=== PATIENT | female | born 1965 ===

== ENCOUNTER 2020-08-10 09:51 | Outpatient (REF) | payer MEDICAID, SELFPAY ==
--- NOTE | 2020-08-10 | PFT_ITS ---
Forced vital capacity moderately reduced. FEV1 slightly reduced. [id number] normal and MVV slightly reduced. Post bronchodilator therapy, there is a small improvement in FEV1 and significant improvement in [id number]. Total lung capacity and residual volume normal. Diffusion capacity normal. CONCLUSION: A very mild degree of obstructive airway disorder, which reverses to normal after bronchodilator therapy. This finding is consistent with mild degree of bronchial asthma. Clinical correlation recommended. MD ANI Herrmann/LUPE / [id number]
== END 2020-08-10 09:52 | disposition home or self-care (01) ==
LOC: HO.RESP 09:51
PROVIDERS: PCP Nurse Practitioner Family; Visit Provider Nurse Practitioner Family
DX: J45.40 Moderate persistent asthma, uncomplicated (principal); R06.02 Shortness of breath
CPT/HCPCS: 94060; 94727; 94729

== ENCOUNTER 2020-09-26 08:06 | Outpatient (REF) | payer MEDICAID, SELFPAY ==
--- NOTE | 2020-09-26 08:11 | MM_ITS ---
EXAMINATION: MM SCREENING DIGITAL BREAST TOMOSYNTHESIS, BILATERAL CLINICAL INFORMATION: Screening. Asymptomatic. Benign left stereotactic biopsy 08/29/2016. The lifetime risk of breast cancer based on the Tyrer-Cuzick Model is 11%. COMPARISON: Mammography: 09/21/2019, 10/06/2017, 12/19/2016, 08/29/2016, 08/16/2016, 08/09/2016 TECHNIQUE: Digital breast tomosynthesis is performed in both the craniocaudal and mediolateral oblique views along with computer-aided detection (CAD). Synthesized 2D images are generated from the tomosynthesis. FINDINGS: There are scattered areas of fibroglandular density (ACR BI-RADS breast composition Category b). There are no significant masses, abnormal calcifications, or other abnormalities. There is a biopsy clip marker posterior upper outer left breast. No recurrent calcifications. MM/MM tomosynthesis screening BI IMPRESSION: No mammographic evidence of malignancy. ASSESSMENT: BI-RADS 1: Negative RECOMMENDATION: Routine annual mammography screening. This patient's information was entered into a reminder system with a target due date for their next mammogram.
== END 2020-09-26 08:07 | disposition home or self-care (01) ==
LOC: HO.MAMMO 08:06
PROVIDERS: Visit Provider Nurse Practitioner Family
DX: Z12.31 Encounter for screening mammogram for malignant neoplasm of breast (principal)
CPT/HCPCS: 77063; 77067

== ENCOUNTER 2020-11-30 10:32 | Inpatient (IN) | payer MEDICAID, SELFPAY ==
--- NOTE | ~2020-11-30 | XR_ITS ---
EXAMINATION: XR CHEST CLINICAL INFORMATION: Chest pain COMPARISON: 08/30/2019 TECHNIQUE: Frontal view of the chest was obtained. FINDINGS: The lungs are well expanded. Patchy opacities are seen at the left lung base. No pleural effusion or pneumothorax. The cardiomediastinal silhouette is within normal limits. Radiopaque anchor in the right humeral head. Right upper quadrant surgical clips. XR/XR chest 1V IMPRESSION: Patchy left basilar airspace opacities could represent atelectasis or pneumonia. Aspiration possible.
--- NOTE | ~2020-11-30 | CT_ITS ---
EXAMINATION: CT ANGIOGRAM OF THE CHEST WITH AND WITHOUT CONTRAST (CT PULMONARY ANGIOGRAM FOR PE) CLINICAL INFORMATION: Reason for Exam Cp + covid/ elevated ddimer, abnormal cxr COMPARISON: Chest pain. Covid. Elevated d-dimer. Abnormal chest radiograph. TECHNIQUE: Prior to contrast administration, noncontrast localization images were obtained. Subsequently, multidetector volumetric imaging was performed from the thoracic inlet to below the diaphragms following the administration of 57 mL Omnipaque 350 intravenous contrast. No contrast reaction reported Sagittal, coronal, and MIP oblique sagittal reformatted images were obtained on the CT workstation, uploaded to PACS, and reviewed. This CT examination was performed using dose optimization techniques as appropriate, variously including the following: *Automated exposure control *Adjustment of mA and/or kV according to patient size (this includes techniques or standardized protocols for targeted exams where dose is matched to indication/reason for exam; i.e. extremities or head) *Use of iterative reconstruction technique Total exam dose-length product 214 mGy-cm FINDINGS: QUALITY OF STUDY/CONTRAST BOLUS: Satisfactory. PULMONARY ARTERIES: No central or segmental pulmonary emboli. Motion degrades evaluation. THORACIC AORTA: No aneurysm or dissection. LUNG: The central airways are patent. There are patchy bilateral groundglass opacities, greatest at the left base. No separate dense consolidation. PLEURA: No pleural effusion or pneumothorax. MEDIASTINUM: Normal heart size. No pericardial effusion. No hilar or mediastinal lymphadenopathy. No evidence of septal bowing or right heart strain. CHEST WALL/AXILLA: No axillary or internal mammary lymphadenopathy. OSSEOUS STRUCTURES: No acute or suspicious osseous abnormality. Mild degenerative change of the spine. UPPER ABDOMEN: Cholecystectomy. No acute abnormality in the visualized upper abdomen. No reflux of contrast into the hepatic veins to suggest elevated right heart pressures. CT/CT angio chest PE protocol IMPRESSION: 1. No pulmonary embolism. 2. Patchy groundglass opacities are seen in the lungs, consistent with the clinical history of Covid. VTE: negative
[2020-11-30 11:57] VITALS: BP 121/76; PULSE 92; RESP 18; TEMP 37.2; O2SAT 94; BMI 25.7
--- NOTE | 2020-11-30 12:21 | ECG_ITS ---
Test Reason : NAUSEA/VOMITING Blood Pressure : / mmHG Vent. Rate : 093 BPM Atrial Rate : 093 BPM P-R Int : 136 ms QRS Dur : 088 ms QT Int : 368 ms P-R-T Axes : 033 007 019 degrees QTc Int : 457 ms Normal sinus rhythm Possible Left atrial enlargement Inferior infarct (cited on or before 30-NOV-2020) Abnormal ECG When compared with ECG of 24-JUN-2019 09:47, Vent. rate has increased BY 31 BPM Nonspecific T wave abnormality, improved in Lateral leads Referred By: Dalton Heard Electronically Signed By:DEANNA SALAZAR MD
--- NOTE | 2020-11-30 12:28 | ED.GENADULT ---
HPI - General Adult General Chief complaint: Nausea/Vomiting/Diarrhea Stated complaint: covid + vomiting, weakness Time Seen by Provider: 11/30/20 12:06 Source: patient and family Mode of arrival: wheelchair Limitations: no limitations History of Present Illness HPI narrative: 55-year-old female with history of asthma, migraine headaches gastroesophageal reflux disease, anxiety/depression and chronic back pain with surgical history of hysterectomy presenting ambulatory with complaint of states on November 24 started to feel unwell and she had her grandson visiting who was also having some upper respiratory symptoms just prior to her having onset of her symptoms he tested positive for COVID and she went to [facility] 2 days ago on November 28 for her symptoms and was tested for COVID-19 and she was positive. States then she has had some nausea vomiting and mild diarrhea also having some cough that is making her underlying asthma worse with some slight wheezing. States she has some substernal chest tightness at times. States her most bothersome symptom is that she has the nausea vomiting and unable to keep any fluids down. She denies any lower extremity swelling, the chest tightness is mostly associated with cough. Positive chills at night with subjective fevers. Onset (ago): day(s) Location: abdomen Severity: moderate Severity scale (1-10): 5 Pain Consistency: other (Worsening) Relieving factors: none Associated symptoms: chest pain, cough, fever/chills and nausea/vomiting Treatments prior to arrival: none Related Data Home Medications Medication Instructions Recorded Confirmed cetirizine 10 mg PO DAILY PRN 11/30/20 11/30/20 diclofenac sodium 2 g TOPICAL QID 11/30/20 11/30/20 docusate sodium [DOK] 100 mg PO BID 11/30/20 11/30/20 duloxetine 60 mg PO DAILY 11/30/20 11/30/20 ergocalciferol (vitamin D2) 1,250 mcg PO REAL 11/30/20 11/30/20 fluticasone furoate-vilanterol 1 puff INHALATION DAILY 11/30/20 11/30/20 [Breo Ellipta] fluticasone propionate 2 spray INTRANASAL DAILY 11/30/20 11/30/20 gabapentin 300 mg PO BEDTIME 11/30/20 11/30/20 ipratropium bromide [Atrovent HFA] 2 puff INHALATION QID PRN 11/30/20 11/30/20 lidocaine [Lidoderm] 1 patch TOPICAL DAILY 11/30/20 11/30/20 melatonin 5 - 10 mg PO BEDTIME PRN 11/30/20 11/30/20 montelukast 10 mg PO BEDTIME 11/30/20 11/30/20 omeprazole 20 mg PO BID 11/30/20 11/30/20 polyethylene glycol 3350 17 g PO DAILY 11/30/20 11/30/20 simvastatin 40 mg PO BEDTIME 11/30/20 11/30/20 Previous Rx's Medication Instructions Recorded cyclobenzaprine 5 mg tablet 5 mg PO BEDTIME PRN #30 tab 08/01/20 Allergies Allergy/AdvReac Type Severity Reaction Status Date / Time pollen extracts [POLLEN] Allergy Unknown RUNNY Unverified 05/18/20 17:15 NOSE, ITCHY EYES seasonl allergies Allergy Unknown asthma Uncoded 10/22/18 00:00 attacks Review of Systems Review of Systems: Constitutional: No Weight loss, + Chills, No Night Sweats, No Fatigue, No Malaise ENT/Mouth: No Hearing loss, No Ear Pain, No Nasal Congestion, No Sinus Pain, No Hoarseness, No sore throat, No Rhinorrhea, No Swallowing Difficulty Eyes: No Eye Pain, No Swelling, No Redness, No Foreign Body, No Discharge, No Vision Changes Cardiovascular: + Chest Pain, No SOB, No Dyspnea on Exertion, No Orthopnea, No Edema, No Palpitations Respiratory: No Cough, No Sputum, No Wheezing, No Smoke Exposure, No Dyspnea Gastrointestinal: As noted per HPI, No Hematochezia, No Melena Genitourinary: no irregular bleeding, No Dysuria, No Urinary Frequency, No Hematuria, No Urinary Incontinence, No Urgency, No Flank Pain, No Urinary Flow Changes, No Hesitancy Musculoskeletal: No joint pain, + Myalgias, No Joint Swelling Skin: No Skin Lesions, No rash Neuro: No Weakness, No Numbness, No Paresthesias, No Loss of Consciousness, No Dizziness, No Headache Psych: No Social Issues Heme/Lymph: No Bruising, No Bleeding,No Lymphadenopathy Endocrine: No Polyuria, No Polydipsia, No Temperature Intolerance Yes all other systems are reviewed and are negative PMFSH Past Medical History Medical History (Updated 11/30/20 @ 20:04 by Dalton Heard NP) Anxiety Arthritis Asthma Depression Migraine headache Surgical History Hx of cholecystectomy Hx of elbow surgery Hx of hysterectomy Social History Social History Smoking Status: Never smoker Use of substances other than those prescribed or required for medical reasons: No Advance Directives: No Advance Directives Information Provided: No Physical Exam Vital Signs: Vital Signs: Last Vital Signs Temp 99.0 F 11/30/20 11:57 Pulse 103 H 11/30/20 15:51 Resp 18 11/30/20 15:51 BP 122/72 11/30/20 15:51 Pulse Ox 88 L 11/30/20 16:51 Body Mass Index 25.7 Reviewed Const: General: cooperative and tired appearing; No acute distress Nutritional Appearance: average body habitus Orientation/consciousness: patient oriented x3 HENMT: Head: Yes normal to inspection Ears: hearing grossly normal bilaterally Eyes: General: appearance normal, both eyes and all related structures Visual Bruno: normal visual bruno by confrontation Neck: Neck: Yes normal visual inspection, No positive Brudzinski's sign, No positive Kernig's sign and No tender Thyroid: Thyroid normal Chest: Chest palpation & inspection: normal inspection of the chest Resp: Effort & Inspection: normal respiratory effort Auscultation: wheezes expiratory wheezes, upper bilaterally and posterior Cardio: Jugular venous distension: no JVD Rhythm: regular rhythm Heart sounds: S1 normal heart sound present and S2 normal heart sound present GI: Inspection: Yes normal to inspection Palpation (GI): Soft to palpation, nontender, no guarding and not rigid Percussion: Yes normal to percussion Auscultation: normal bowel sounds : General: Yes no CVA tenderness Back/Spine/Pelvis: Back: no CVA tenderness Skin: General skin exam: no rashes or lesions noted Neuro: General: patient oriented x3 Extrem: General: Yes normal to inspection Course Reevaluation(s) Reevaluation #1: 1235 In review 55-year-old female with history of asthma, migraine headaches gastroesophageal reflux disease, anxiety/depression and chronic back pain with surgical history of hysterectomy as well as other history as noted above presenting with GI symptoms and cough with some associated chest discomfort in the setting of recent positive COVID diagnosis. Will need labs including COVID stratification labs, EKG, chest x-ray and will treat with albuterol inhaler. Will hold of fluid at this time. With ambulation her heart rate went 94-114 and oxygen at 94% but no shortness of breath. Will give her 500 cc of fluid very gradually and symptomatic management for the GI symptoms. Her abdominal exam is benign. Has not had any vomiting or diarrhea today. Reevaluation #2: Labs shows slightly elevated COVID marker and a slightly elevated liver function test does have some mild nausea and vomiting prior to coming here and some diarrhea otherwise none of the GI symptoms here. Slightly elevated D-dimer CTA negative findings consistent with COVID disease. 88% on room air 93-95% on 2 L. she does live alone given the hypoxia case discussed with hospitalist for admission. Consultations Consultation #1: Hospitalist Dr. Gomez Medical Decision Making Lab Data Result diagrams: 11/30/20 13:14 11/30/20 12:15 Labs: Lab Results 11/30/20 11/30/20 11/30/20 Range/Units 12:15 12:15 12:18 WBC 5.0 (4.8-10.8) X10*3/uL RBC 4.85 (4.20-5.50) X10*6/uL Hgb 13.5 (12.0-16.0) g/dl Hct 41.0 (37-47) % MCV 84.5 (80-98) fL MCH 27.8 (27.0-33.0) pg MCHC 32.9 (31.0-35.0) g/dl RDW 12.7 (11.0-16.0) % Plt Count 129 L (160-400) X10*3/uL MPV 9.5 (9.4-12.3) fL Immature Gran % (Auto) 0.0 (0.0-0.4) % Neut % (Auto) 72.4 (45-73) % Lymph % (Auto) 23.4 (20-40) % [place] % (Auto) 4.0 (2-11) % Eos % (Auto) 0.0 (0-4) % Baso % (Auto) 0.2 (0-2) % Lymph # (Auto) 1.2 (1.2-4.9) X10*3/uL [place] # (Auto) 0.2 (0.1-1.2) X10*3/uL Eos # (Auto) 0.0 (0.0-0.4) X10*3/uL Baso # (Auto) 0.0 (0.0-0.2) X10*3/uL Abs Immat Gran (auto) 0.00 (0.00-0.03) X10*3/uL Absolute Neuts (auto) 3.6 (2.0-8.3) X10*3/uL Absolute Nucleated RBC 0.000 (0.0-0.012) X10*3/uL Nucleated RBC % (auto) 0.0 (0.0-0.2) /100WBC PT 13.6 H (10.8-13.0) SEC INR 1.1 (0.9-1.1) APTT 34.0 (24.1-38.0) SEC D-Dimer 247 NG/ML Hold Blue Top SEE NOTE Sodium 136 (135-145) mmol/L Potassium 3.6 (3.3-5.1) mmol/L Chloride 100 (96-108) mmol/L Carbon Dioxide 25 (22-29) mmol/L Anion Gap 15 (12-20) BUN 11 (9-16) mg/dL Creatinine 0.61 (0.5-1.4) mg/dL Estim Creat Clear Calc 97.2 Estimated GFR > 60 Random Glucose 91 (60-115) mg/dL Lactic Acid (0.5-2.0) mmol/L Calcium 8.6 (8.4-10.2) mg/dL Ferritin (10-250) ng/mL Total Bilirubin 0.4 (0.0-1.0) mg/dL Direct Bilirubin 0.2 (0.0-0.5) mg/dL AST 58 H (5-31) U/L ALT 57 H (0-31) U/L Alkaline Phosphatase 92 (39-117) U/L Lactate Dehydrogenase 272 H (122-220) U/L Troponin I High Sens (<3.5-17.0) ng/L C-Reactive Protein 1.13 H (< or = 0.50) mg/dL B-Natriuretic Peptide (<100) pg/mL Total Protein 7.2 (6.5-8.0) g/dL Albumin 4.2 (3.5-5.0) g/dL Lipase 24 (8-78) U/L Procalcitonin ng/mL Urine Color Urine Appearance Urine pH (5.0-8.0) Ur Specific [place] (1.005-1.025) Urine Protein (NEG-TRACE) MG/DL Urine Glucose (UA) (NEG) MG/DL Urine Ketones (NEG) MG/DL Urine Blood (NEG) Urine Nitrite (NEG) Ur Leukocyte Esterase (NEG) Urine RBC (0) /HPF Urine WBC (0-4) /HPF Ur Squamous Epith Cells /LPF Urine Bacteria /LPF Urine Mucus /LPF 11/30/20 11/30/20 11/30/20 Range/Units 13:14 13:14 13:14 WBC 4.7 L (4.8-10.8) X10*3/uL RBC 4.78 (4.20-5.50) X10*6/uL Hgb 13.5 (12.0-16.0) g/dl Hct 40.8 (37-47) % MCV 85.4 (80-98) fL MCH 28.2 (27.0-33.0) pg MCHC 33.1 (31.0-35.0) g/dl RDW 12.8 (11.0-16.0) % Plt Count 130 L (160-400) X10*3/uL MPV 9.6 (9.4-12.3) fL Immature Gran % (Auto) 0.2 (0.0-0.4) % Neut % (Auto) 69.9 (45-73) % Lymph % (Auto) 25.9 (20-40) % Marathon % (Auto) 3.8 (2-11) % Eos % (Auto) 0.0 (0-4) % Baso % (Auto) 0.2 (0-2) % Lymph # (Auto) 1.2 (1.2-4.9) X10*3/uL [place] # (Auto) 0.2 (0.1-1.2) X10*3/uL Eos # (Auto) 0.0 (0.0-0.4) X10*3/uL Baso # (Auto) 0.0 (0.0-0.2) X10*3/uL Abs Immat Gran (auto) 0.01 (0.00-0.03) X10*3/uL Absolute Neuts (auto) 3.3 (2.0-8.3) X10*3/uL Absolute Nucleated RBC 0.000 (0.0-0.012) X10*3/uL Nucleated RBC % (auto) 0.0 (0.0-0.2) /100WBC PT (10.8-13.0) SEC INR (0.9-1.1) APTT (24.1-38.0) SEC D-Dimer NG/ML Hold Blue Top Sodium (135-145) mmol/L Potassium (3.3-5.1) mmol/L Chloride (96-108) mmol/L Carbon Dioxide (22-29) mmol/L Anion Gap (12-20) BUN (9-16) mg/dL Creatinine (0.5-1.4) mg/dL Estim Creat Clear Calc Estimated GFR Random Glucose (60-115) mg/dL Lactic Acid 0.8 (0.5-2.0) mmol/L Calcium (8.4-10.2) mg/dL Ferritin 559 H (10-250) ng/mL Total Bilirubin (0.0-1.0) mg/dL Direct Bilirubin (0.0-0.5) mg/dL AST (5-31) U/L ALT (0-31) U/L Alkaline Phosphatase (39-117) U/L Lactate Dehydrogenase (122-220) U/L Troponin I High Sens (<3.5-17.0) ng/L C-Reactive Protein (< or = 0.50) mg/dL B-Natriuretic Peptide (<100) pg/mL Total Protein (6.5-8.0) g/dL Albumin (3.5-5.0) g/dL Lipase (8-78) U/L Procalcitonin ng/mL Urine Color Urine Appearance Urine pH (5.0-8.0) Ur Specific [place] (1.005-1.025) Urine Protein (NEG-TRACE) MG/DL Urine Glucose (UA) (NEG) MG/DL Urine Ketones (NEG) MG/DL Urine Blood (NEG) Urine Nitrite (NEG) Ur Leukocyte Esterase (NEG) Urine RBC (0) /HPF Urine WBC (0-4) /HPF Ur Squamous Epith Cells /LPF Urine Bacteria /LPF Urine Mucus /LPF 11/30/20 11/30/20 11/30/20 Range/Units 13:14 13:14 13:14 WBC (4.8-10.8) X10*3/uL RBC (4.20-5.50) X10*6/uL Hgb (12.0-16.0) g/dl Hct (37-47) % MCV (80-98) fL MCH (27.0-33.0) pg MCHC (31.0-35.0) g/dl RDW (11.0-16.0) % Plt Count (160-400) X10*3/uL MPV (9.4-12.3) fL Immature Gran % (Auto) (0.0-0.4) % Neut % (Auto) (45-73) % Lymph % (Auto) (20-40) % Marathon % (Auto) (2-11) % Eos % (Auto) (0-4) % Baso % (Auto) (0-2) % Lymph # (Auto) (1.2-4.9) X10*3/uL [place] # (Auto) (0.1-1.2) X10*3/uL Eos # (Auto) (0.0-0.4) X10*3/uL Baso # (Auto) (0.0-0.2) X10*3/uL Abs Immat Gran (auto) (0.00-0.03) X10*3/uL Absolute Neuts (auto) (2.0-8.3) X10*3/uL Absolute Nucleated RBC (0.0-0.012) X10*3/uL Nucleated RBC % (auto) (0.0-0.2) /100WBC PT (10.8-13.0) SEC INR (0.9-1.1) APTT (24.1-38.0) SEC D-Dimer NG/ML Hold Blue Top Sodium (135-145) mmol/L Potassium (3.3-5.1) mmol/L Chloride (96-108) mmol/L Carbon Dioxide (22-29) mmol/L Anion Gap (12-20) BUN (9-16) mg/dL Creatinine (0.5-1.4) mg/dL Estim Creat Clear Calc Estimated GFR Random Glucose (60-115) mg/dL Lactic Acid (0.5-2.0) mmol/L Calcium (8.4-10.2) mg/dL Ferritin (10-250) ng/mL Total Bilirubin (0.0-1.0) mg/dL Direct Bilirubin (0.0-0.5) mg/dL AST (5-31) U/L ALT (0-31) U/L Alkaline Phosphatase (39-117) U/L Lactate Dehydrogenase (122-220) U/L Troponin I High Sens < 3.5 (<3.5-17.0) ng/L C-Reactive Protein (< or = 0.50) mg/dL B-Natriuretic Peptide (<100) pg/mL Total Protein (6.5-8.0) g/dL Albumin (3.5-5.0) g/dL Lipase (8-78) U/L Procalcitonin 0.03 ng/mL Urine Color DARK YELLOW Urine Appearance HAZY Urine pH 6.0 (5.0-8.0) Ur Specific [place] 1.025 (1.005-1.025) Urine Protein 1+ H (NEG-TRACE) MG/DL Urine Glucose (UA) NEG (NEG) MG/DL Urine Ketones >=80 (NEG) MG/DL Urine Blood NEG (NEG) Urine Nitrite NEG (NEG) Ur Leukocyte Esterase NEG (NEG) Urine RBC 0-2 (0) /HPF Urine WBC 0-2 (0-4) /HPF Ur Squamous Epith Cells 1+ /LPF Urine Bacteria TRACE /LPF Urine Mucus 2+ /LPF 11/30/20 Range/Units 13:14 WBC (4.8-10.8) X10*3/uL RBC (4.20-5.50) X10*6/uL Hgb (12.0-16.0) g/dl Hct (37-47) % MCV (80-98) fL MCH (27.0-33.0) pg MCHC (31.0-35.0) g/dl RDW (11.0-16.0) % Plt Count (160-400) X10*3/uL MPV (9.4-12.3) fL Immature Gran % (Auto) (0.0-0.4) % Neut % (Auto) (45-73) % Lymph % (Auto) (20-40) % [place] % (Auto) (2-11) % Eos % (Auto) (0-4) % Baso % (Auto) (0-2) % Lymph # (Auto) (1.2-4.9) X10*3/uL [place] # (Auto) (0.1-1.2) X10*3/uL Eos # (Auto) (0.0-0.4) X10*3/uL Baso # (Auto) (0.0-0.2) X10*3/uL Abs Immat Gran (auto) (0.00-0.03) X10*3/uL Absolute Neuts (auto) (2.0-8.3) X10*3/uL Absolute Nucleated RBC (0.0-0.012) X10*3/uL Nucleated RBC % (auto) (0.0-0.2) /100WBC PT (10.8-13.0) SEC INR (0.9-1.1) APTT (24.1-38.0) SEC D-Dimer NG/ML Hold Blue Top Sodium (135-145) mmol/L Potassium (3.3-5.1) mmol/L Chloride (96-108) mmol/L Carbon Dioxide (22-29) mmol/L Anion Gap (12-20) BUN (9-16) mg/dL Creatinine (0.5-1.4) mg/dL Estim Creat Clear Calc Estimated GFR Random Glucose (60-115) mg/dL Lactic Acid (0.5-2.0) mmol/L Calcium (8.4-10.2) mg/dL Ferritin (10-250) ng/mL Total Bilirubin (0.0-1.0) mg/dL Direct Bilirubin (0.0-0.5) mg/dL AST (5-31) U/L ALT (0-31) U/L Alkaline Phosphatase (39-117) U/L Lactate Dehydrogenase (122-220) U/L Troponin I High Sens (<3.5-17.0) ng/L C-Reactive Protein (< or = 0.50) mg/dL B-Natriuretic Peptide < 10 (<100) pg/mL Total Protein (6.5-8.0) g/dL Albumin (3.5-5.0) g/dL Lipase (8-78) U/L Procalcitonin ng/mL Urine Color Urine Appearance Urine pH (5.0-8.0) Ur Specific [place] (1.005-1.025) Urine Protein (NEG-TRACE) MG/DL Urine Glucose (UA) (NEG) MG/DL Urine Ketones (NEG) MG/DL Urine Blood (NEG) Urine Nitrite (NEG) Ur Leukocyte Esterase (NEG) Urine RBC (0) /HPF Urine WBC (0-4) /HPF Ur Squamous Epith Cells /LPF Urine Bacteria /LPF Urine Mucus /LPF Imaging Data Chest CTA: Radiologist's impression: [address] Scan ReportSigned Patient: Higinio Last#: [id number]: 1965Acct:[id number]/Sex: 55 / FADM Date: 11/30/20Loc: EDAttending Dr: Ordering Physician: Dalton Heard NP Date of Service: 11/30/20 Procedure(s): CT angio chest PE protocol Accession Number(s): [id number] cc: Dalton Heard NP~ EXAMINATION: CT ANGIOGRAM OF THE CHEST WITH AND WITHOUT CONTRAST (CT PULMONARY ANGIOGRAM FOR PE) CLINICAL INFORMATION: Reason for Exam Cp + covid/ elevated ddimer, abnormal cxr COMPARISON: Chest pain. Covid. Elevated d-dimer. Abnormal chest radiograph. TECHNIQUE: Prior to contrast administration, noncontrast localization images were obtained. Subsequently, multidetector volumetric imaging was performed from the thoracic inlet to below the diaphragms following the administration of 57 mL Omnipaque 350 intravenous contrast. No contrast reaction reported Sagittal, coronal, and MIP oblique sagittal reformatted images were obtained on the CT workstation, uploaded to PACS, and reviewed. This CT examination was performed using dose optimization techniques as appropriate, variously including the following: *Automated exposure control *Adjustment of mA and/or kV according to patient size (this includes techniques or standardized protocols for targeted exams where dose is matched to indication/reason for exam; i.e. extremities or head) *Use of iterative reconstruction technique Total exam dose-length product 214 mGy-cm FINDINGS: QUALITY OF STUDY/CONTRAST BOLUS: Satisfactory. PULMONARY ARTERIES: No central or segmental pulmonary emboli. Motion degrades evaluation. THORACIC AORTA: No aneurysm or dissection. LUNG: The central airways are patent. There are patchy bilateral groundglass opacities, greatest at the left base. No separate dense consolidation. PLEURA: No pleural effusion or pneumothorax. MEDIASTINUM: Normal heart size. No pericardial effusion. No hilar or mediastinal lymphadenopathy. No evidence of septal bowing or right heart strain. CHEST WALL/AXILLA: No axillary or internal mammary lymphadenopathy. OSSEOUS STRUCTURES: No acute or suspicious osseous abnormality. Mild degenerative change of the spine. UPPER ABDOMEN: Cholecystectomy. No acute abnormality in the visualized upper abdomen. No reflux of contrast into the hepatic veins to suggest elevated right heart pressures. CT/CT angio chest PE protocol IMPRESSION: 1. No pulmonary embolism. 2. Patchy groundglass opacities are seen in the lungs, consistent with the clinical history of Covid. VTE: negative Dictated By:Vladimir Siddiqi MDSigned By:<Electronically signed by Vladimir Siddiqi MD in [place]>11/30/20 1610 DD/ 1419TD/TT: Director Of Graduate Medical Education: MERLYN Chest x-ray: Radiologist's impression: [address] [id number] ReportSigned Patient: Higinio Last#: [id number]: 1965Acct:[id number]/Sex: 55 / FADM Date: 11/30/20Loc: HO.EDAttending Dr: Ordering Physician: Dalton Heard NP Date of Service: 11/30/20 Procedure(s): XR chest 1V Accession Number(s): [id number] cc: Dalotn Heard TAIL DOGGER~ EXAMINATION: XR CHEST CLINICAL INFORMATION: Chest pain COMPARISON: 08/30/2019 TECHNIQUE: Frontal view of the chest was obtained. FINDINGS: The lungs are well expanded. Patchy opacities are seen at the left lung base. No pleural effusion or pneumothorax. The cardiomediastinal silhouette is within normal limits. Radiopaque anchor in the right humeral head. Right upper quadrant surgical clips. XR/XR chest 1V IMPRESSION: Patchy left basilar airspace opacities could represent atelectasis or pneumonia. Aspiration possible. Dictated By:Vladimir Siddiqi MDSigned By:<Electronically signed by Vladimir Siddiqi MD in OV>11/30/20 1305 DD/ 1221TD/TT: Director Of Graduate Medical Education: MERLYN ECG Data Interpretation: Normal sinus rhythm Possible Left atrial enlargement Inferior infarct (cited on or before 30-NOV-2020) Abnormal ECG When compared with ECG of 24-JUN-2019 09:47, Vent. rate has increased BY 31 BPM Nonspecific T wave abnormality, improved in Lateral leads Discharge Plan Discharge Clinical Impression: COVID-19, Hypoxia Diarrhea Qualifiers: Diarrhea type: unspecified type Qualified Code(s): R19.7 - Diarrhea, unspecified Patient Disposition: Admitted As Inpatient
[2020-11-30 12:35] LABS: Basophils Percent Auto 0.2 % (0-2); PLT CLUMP 1; Red Cell Distribution Width 12.7 % (11.0-16.0); SCAN SMEAR FLAG 1
[2020-11-30 12:37] LABS: Hemoglobin 13.5 g/dl (12.0-16.0); Lymphocytes Absolute Auto 1.2 X10*3/uL (1.2-4.9); Lymphocytes Percent Auto 23.4 % (20-40); Mean Corpuscular HGB Conc 32.9 g/dl (31.0-35.0); Mean Corpuscular Hemoglobin 27.8 pg (27.0-33.0); Mean Corpuscular Volume 84.5 fL (80-98); Mean Platelet Volume 9.5 fL (9.4-12.3); Monocytes Absolute Auto 0.2 X10*3/uL (0.1-1.2); Neutrophils Absolute Auto 3.6 X10*3/uL (2.0-8.3); Neutrophils Percent Auto 72.4 % (45-73); Platelet Count 129 X10*3/uL (160-400); Red Blood Count 4.85 X10*6/uL (4.20-5.50)
[2020-11-30 12:55] LABS: Alanine Aminotransferase 57 U/L (0-31); Albumin Level 4.2 g/dL (3.5-5.0); Alkaline Phosphatase 92 U/L (39-117); Anion Gap 15 (12-20); Aspartate Amino Transferase 58 U/L (5-31); Bilirubin Direct 0.2 mg/dL (0.0-0.5); Bilirubin Total 0.4 mg/dL (0.0-1.0); Blood Urea Nitrogen 11 mg/dL (9-16); C Reactive Protein 1.13 mg/dL (< or = 0.50); Calcium 8.6 mg/dL (8.4-10.2); Carbon Dioxide 25 mmol/L (22-29); Chloride 100 mmol/L (96-108); Creatinine Clr Calc Pharmacy 97.2; Estimated Glomerular Filt Rate > 60; Glucose Random 91 mg/dL (60-115); Lactate Dehydrogenase 272 U/L (122-220); Lipase 24 U/L (8-78); Potassium 3.6 mmol/L (3.3-5.1); Sodium 136 mmol/L (135-145); Total Protein 7.2 g/dL (6.5-8.0)
[2020-11-30] MEDS: ondansetron HCL 4 MG/2 ML VIAL IVPUSH (13:18)
[2020-11-30] MEDS: Lidocaine HCl Viscous 2 % 15 ML SOLUTION 10 ML MUCOUS MEM (13:18)
[2020-11-30] MEDS: Magnesium Hydrox/Alum Hydrox 30 ML ORAL.SUSP PO (13:18)
[2020-11-30 13:22] VITALS: BP 125/75; PULSE 97; RESP 18; O2SAT 93
[2020-11-30] MEDS: 0.9 % Sodium Chloride 500 ML IV (13:22)
[2020-11-30 13:29] LABS: MANUAL DIFF FLAG NO
[2020-11-30 13:30] LABS: Basophils Percent Auto 0.2 % (0-2); Hematocrit 40.8 % (37-47); Hemoglobin 13.5 g/dl (12.0-16.0); Imm Gran Abs Auto 0.01 X10*3/uL (0.00-0.03); Imm Gran Pct Auto 0.2 % (0.0-0.4); Lymphocytes Absolute Auto 1.2 X10*3/uL (1.2-4.9); Lymphocytes Percent Auto 25.9 % (20-40); Mean Corpuscular HGB Conc 33.1 g/dl (31.0-35.0); Mean Corpuscular Hemoglobin 28.2 pg (27.0-33.0); Mean Corpuscular Volume 85.4 fL (80-98); Mean Platelet Volume 9.6 fL (9.4-12.3); Monocytes Absolute Auto 0.2 X10*3/uL (0.1-1.2); Monocytes Percent Auto 3.8 % (2-11); Neutrophils Absolute Auto 3.3 X10*3/uL (2.0-8.3); Neutrophils Percent Auto 69.9 % (45-73); Platelet Count 130 X10*3/uL (160-400); Red Blood Count 4.78 X10*6/uL (4.20-5.50); Red Cell Distribution Width 12.8 % (11.0-16.0); White Blood Count 4.7 X10*3/uL (4.8-10.8)
[2020-11-30 13:39] LABS: INTERNATIONAL NORM RATIO 1.1 (0.9-1.1); Prothrombin Time 13.6 SEC (10.8-13.0)
[2020-11-30 13:42] LABS: D Dimer 247 NG/ML
[2020-11-30 13:43] LABS: Glucose Urine UA NEG (NEG); Leukocyte Esterase Urine NEG (NEG); Nitrite Urine NEG (NEG); Specific Gravity - Urine 1.025 (1.005-1.025); Urine Blood NEG (NEG); Urine Ketones >=80 MG/DL (NEG); Urine Protein 1+ MG/DL (NEG-TRACE)
[2020-11-30 13:46] LABS: Appearance Urine HAZY; Color Urine DARK YELLOW
[2020-11-30 13:51] LABS: Lactic Acid 0.8 mmol/L (0.5-2.0)
[2020-11-30 13:57] LABS: Bacteria Urine TRACE /LPF; Mucus Urine 2+ /LPF; RBC Urine 0-2 /HPF (0); Squamous Epithelial Cell Urine 1+ /LPF; WBC Urine 0-2 /HPF (0-4)
[2020-11-30 13:59] LABS: B Type Natriuretic Peptide < 10 pg/mL (<100); Troponin-I High Sensitivity < 3.5 ng/L (<3.5-17.0)
[2020-11-30 14:17] LABS: Ferritin 559 ng/mL (10-250)
[2020-11-30 14:26] LABS: Procalcitonin 0.03 ng/mL
[2020-11-30 15:51] VITALS: BP 122/72; PULSE 103; RESP 18
--- NOTE | 2020-11-30 15:52 | PC.NURSE ---
pt unable to make to the bathroom, had a episode of diarrhea, pt assisted in to the bathroom and helped with getting cleaned up, vs stable at this time, pt continuos on reporting 10/10 abd pain pt of to ct
[2020-11-30 16:51] VITALS: O2SAT 88
--- NOTE | 2020-11-30 18:11 | PM.IMHP ---
History of Present Illness Date of Service: 11/30/20 Chief Complaint: sob , nausea vomiting diarrhea. 55 y/o f with hx asthma, migraine headaches ,GERD, anxiety/depression and chronic back pain : She came to the hospital- complaint since if November 24 started to feel unwell and she had her grandson visiting who was also having some upper respiratory symptoms just prior to her having onset of her symptoms he tested positive for COVID and she went to [facility] 2 days ago on November 28 for her symptoms and was tested for COVID-19 and she was positive. she has had some nausea vomiting and mild diarrhea also having some cough that is making her underlying asthma worse with some slight wheezing. She also complain of pleuritic chest discomfort and cough. Positive chills at night with subjective fevers. She says that she has diarrhea on and off but no diarrhea since she came to the hospital in the ED as per ED physician. Past medical history as per patient: Anxiety Arthritis Asthma Depression Migraine headache Surgical History : Hx of cholecystectomy Hx of elbow surgery Hx of hysterectomy due to excessive bleeding as per patient. Social history: She lives with the family, says she is totally independent. Denies any smoking or alcohol use or use or recreation drug use. Family history: As above mentioned her grandson had similar symptom and positive for COVID. Review of Systems Review of Systems: Constitutional: Not in acute distress. Respiratory: Has short of breath and cough Cardiovascular: No palpitation or chest pain Abdominal: has nausea and somewhat epigastric discomfort , no vomiting or abdominal pain Also complains of diarrhea. Neuro iniguez: No weakness or numbness No fever but had chills last night Skin iniguez: No rash or erythema. HEENT: No vision changes or any eye pain or discharge. Please also see HPI. REPLACED BY [facility] Medical History (Updated 11/30/20 @ 20:04 by Dalton Heard NP) Anxiety Arthritis Asthma Depression Migraine headache Surgical History Hx of cholecystectomy Hx of elbow surgery Hx of hysterectomy Social History Household Members: Spouse Housing: House Do you presently have visiting nurse or other home services: No Smoking Status: Never smoker Smoked in Last 30 Days: No Use of substances other than those prescribed or required for medical reasons: Yes Currently Displaying Signs/Symptoms of Drug Intoxication Withdrawal: No Have you been hit, kicked, punched, or otherwise hurt by someone within the past year? If so, by whom?: No Do you feel safe in your current relationship?: No Is there a partner from a previous relationship who is making you feel unsafe now?: No Are you made to feel afraid or neglected: No Advance Directives: No Advance Directives Information Provided: No Do you have thoughts of harming others: None Do you have a plan to hurt others: No Plan Recently lost weight without trying: Yes service: No Current occupational status: unemployed Meds Allergies Allergy/AdvReac Type Severity Reaction Status Date / Time pollen extracts [POLLEN] Allergy Unknown RUNNY Verified 12/02/20 11:29 NOSE, ITCHY EYES seasonl allergies Allergy Unknown asthma Uncoded 12/02/20 11:29 attacks Home Medications Medication Instructions Recorded Confirmed Last Taken Type Atrovent HFA 2 puff INHALATION QID PRN 11/30/20 11/30/20 Unknown History Breo Ellipta 1 puff INHALATION DAILY 11/30/20 11/30/20 Unknown History cetirizine 10 mg PO DAILY PRN 11/30/20 11/30/20 Unknown History diclofenac sodium 2 g TOPICAL QID 11/30/20 11/30/20 Unknown History docusate sodium [DOK] 100 mg PO BID 11/30/20 11/30/20 Unknown History duloxetine 60 mg PO DAILY 11/30/20 11/30/20 Unknown History ergocalciferol (vitamin D2) 1,250 mcg PO REAL 11/30/20 11/30/20 Unknown History fluticasone propionate 2 spray INTRANASAL DAILY 11/30/20 11/30/20 Unknown History gabapentin 300 mg PO BEDTIME 11/30/20 11/30/20 Unknown History lidocaine [Lidoderm] 1 patch TOPICAL DAILY 11/30/20 11/30/20 Unknown History melatonin 5 - 10 mg PO BEDTIME PRN 11/30/20 11/30/20 Unknown History montelukast 10 mg PO BEDTIME 11/30/20 11/30/20 Unknown History omeprazole 20 mg PO BID 11/30/20 11/30/20 Unknown History polyethylene glycol 3350 17 g PO DAILY 11/30/20 11/30/20 Unknown History simvastatin 40 mg PO BEDTIME 11/30/20 11/30/20 Unknown History Physical Exam Vital Signs and Narrative: Vital Signs: Last Vital Signs Temp 99.0 F 11/30/20 11:57 Pulse 103 H 11/30/20 15:51 Resp 18 11/30/20 15:51 BP 122/72 11/30/20 15:51 Pulse Ox 88 L 11/30/20 16:51 Body Mass Index 25.7 Physical exam: Constitutional: Not in acute distress, somewhat short of breath. HEENT: Eyes: Anicteric, no discharge Throat: Mucosa Moist. Cvs: rrr, [id number] , no murmur res: grossly clear to auscultation ,no rhonchii or wheezing abd: no rebound or guarding ,nt, bs present. ext pulses present , no cyanosis neuro: axo3 , nonfocal. Results Labs CBC and Chem 7: 12/02/20 05:59 12/03/20 06:05 Labs: Laboratory Results - last 24 hr 11/30/20 11/30/20 11/30/20 12:15 12:15 12:18 MCV 84.5 MCH 27.8 MCHC 32.9 RDW 12.7 Plt Count 129 L MPV 9.5 Immature Gran % (Auto) 0.0 Neut % (Auto) 72.4 Lymph % (Auto) 23.4 [place] % (Auto) 4.0 Eos % (Auto) 0.0 Baso % (Auto) 0.2 Lymph # (Auto) 1.2 [place] # (Auto) 0.2 Eos # (Auto) 0.0 Baso # (Auto) 0.0 Abs Immat Gran (auto) 0.00 Absolute Neuts (auto) 3.6 Absolute Nucleated RBC 0.000 Nucleated RBC % (auto) 0.0 PT 13.6 H INR 1.1 APTT 34.0 D-Dimer 247 Hold Blue Top SEE NOTE Anion Gap 15 Estim Creat Clear Calc 97.2 Estimated GFR > 60 Random Glucose 91 Lactic Acid Calcium 8.6 Ferritin Total Bilirubin 0.4 Direct Bilirubin 0.2 AST 58 H ALT 57 H Alkaline Phosphatase 92 Lactate Dehydrogenase 272 H Troponin I High Sens C-Reactive Protein 1.13 H B-Natriuretic Peptide Total Protein 7.2 Albumin 4.2 Lipase 24 Procalcitonin Urine Color Urine Appearance Urine pH Ur Specific [place] Urine Protein Urine Glucose (UA) Urine Ketones Urine Blood Urine Nitrite Ur Leukocyte Esterase Urine RBC Urine WBC Ur Squamous Epith Cells Urine Bacteria Urine Mucus 11/30/20 11/30/20 11/30/20 13:14 13:14 13:14 MCV 85.4 MCH 28.2 MCHC 33.1 RDW 12.8 Plt Count 130 L MPV 9.6 Immature Gran % (Auto) 0.2 Neut % (Auto) 69.9 Lymph % (Auto) 25.9 [place] % (Auto) 3.8 Eos % (Auto) 0.0 Baso % (Auto) 0.2 Lymph # (Auto) 1.2 [place] # (Auto) 0.2 Eos # (Auto) 0.0 Baso # (Auto) 0.0 Abs Immat Gran (auto) 0.01 Absolute Neuts (auto) 3.3 Absolute Nucleated RBC 0.000 Nucleated RBC % (auto) 0.0 PT INR APTT D-Dimer Hold Blue Top Anion Gap Estim Creat Clear Calc Estimated GFR Random Glucose Lactic Acid 0.8 Calcium Ferritin 559 H Total Bilirubin Direct Bilirubin AST ALT Alkaline Phosphatase Lactate Dehydrogenase Troponin I High Sens C-Reactive Protein B-Natriuretic Peptide Total Protein Albumin Lipase Procalcitonin Urine Color Urine Appearance Urine pH Ur Specific [place] Urine Protein Urine Glucose (UA) Urine Ketones Urine Blood Urine Nitrite Ur Leukocyte Esterase Urine RBC Urine WBC Ur Squamous Epith Cells Urine Bacteria Urine Mucus 11/30/20 11/30/20 11/30/20 13:14 13:14 13:14 MCV MCH MCHC RDW Plt Count MPV Immature Gran % (Auto) Neut % (Auto) Lymph % (Auto) [place] % (Auto) Eos % (Auto) Baso % (Auto) Lymph # (Auto) [place] # (Auto) Eos # (Auto) Baso # (Auto) Abs Immat Gran (auto) Absolute Neuts (auto) Absolute Nucleated RBC Nucleated RBC % (auto) PT INR APTT D-Dimer Hold Blue Top Anion Gap Estim Creat Clear Calc Estimated GFR Random Glucose Lactic Acid Calcium Ferritin Total Bilirubin Direct Bilirubin AST ALT Alkaline Phosphatase Lactate Dehydrogenase Troponin I High Sens < 3.5 C-Reactive Protein B-Natriuretic Peptide Total Protein Albumin Lipase Procalcitonin 0.03 Urine Color DARK YELLOW Urine Appearance HAZY Urine pH 6.0 Ur Specific [place] 1.025 Urine Protein 1+ H Urine Glucose (UA) NEG Urine Ketones >=80 Urine Blood NEG Urine Nitrite NEG Ur Leukocyte Esterase NEG Urine RBC 0-2 Urine WBC 0-2 Ur Squamous Epith Cells 1+ Urine Bacteria TRACE Urine Mucus 2+ 11/30/20 13:14 MCV MCH MCHC RDW Plt Count MPV Immature Gran % (Auto) Neut % (Auto) Lymph % (Auto) [place] % (Auto) Eos % (Auto) Baso % (Auto) Lymph # (Auto) [place] # (Auto) Eos # (Auto) Baso # (Auto) Abs Immat Gran (auto) Absolute Neuts (auto) Absolute Nucleated RBC Nucleated RBC % (auto) PT INR APTT D-Dimer Hold Blue Top Anion Gap Estim Creat Clear Calc Estimated GFR Random Glucose Lactic Acid Calcium Ferritin Total Bilirubin Direct Bilirubin AST ALT Alkaline Phosphatase Lactate Dehydrogenase Troponin I High Sens C-Reactive Protein B-Natriuretic Peptide < 10 Total Protein Albumin Lipase Procalcitonin Urine Color Urine Appearance Urine pH Ur Specific [place] Urine Protein Urine Glucose (UA) Urine Ketones Urine Blood Urine Nitrite Ur Leukocyte Esterase Urine RBC Urine WBC Ur Squamous Epith Cells Urine Bacteria Urine Mucus Imaging Radiologist's Impressions: Impressions Chest X-Ray 11/30/20 12:21 IMPRESSION: Patchy left basilar airspace opacities could represent atelectasis or pneumonia. Aspiration possible. Chest CTA 11/30/20 14:19 IMPRESSION: 1. No pulmonary embolism. 2. Patchy groundglass opacities are seen in the lungs, consistent with the clinical history of Covid. VTE: negative Assessment and Plan (1) Acute hypoxemic respiratory failure: Status: Acute (2) Pneumonia due to COVID-19 virus: Status: Acute (3) Diarrhea: Status: Acute 1. Acute hypoxemic respiratory failure secondary to COVID pneumonia as per ED physician patient sats were 88 in the room air. And subsequently was started on oxygen. Continue dexamethasone and oxygen therapy, id evaluation for remdesivir is if qualifies. Seems like diarrhea probably related to COVID also: We will check stool studies including C diff and WBC. Slightly elevated LFT question COVID related, monitor closely. 2. Migraine headache: Medications still not reconciled, will add Tylenol p.r.n. for now. 3. Anxiety/depression:? Unclear if she takes medication for that at home. 4. DVT prophylaxis with Lovenox
[2020-11-30] MEDS: dexAMETHasone sod phosphate 4 MG/ML VIAL 6 MG IVPUSH (18:35)
[2020-11-30 20:12] VITALS: BP 122/71; PULSE 90; RESP 18; O2SAT 97
[2020-11-30] MEDS: Albuterol Sulfate 90 MCG 8 GM INHALER 4 PUFF INHALE (20:12)
--- NOTE | 2020-11-30 20:32 | PC.NURSE ---
WAITING ON PHARMACY TO BRING REMDESIVIR TO ER, THEY HAVE NO TECH.
[2020-11-30] MEDS: Remdesivir 200 MG in 0.9 % Sodium Chloride 210 ML 125 MG IV (20:57)
[2020-11-30] MEDS: Enoxaparin Sodium 40 MG/0.4 ML SYRINGE SUBCUT (21:05)
[2020-11-30] MEDS: Gabapentin 300 MG CAPSULE PO (21:05)
[2020-11-30] MEDS: Montelukast Sodium 10 MG TABLET PO (21:05)
[2020-11-30] MEDS: Docusate Sodium 100 MG CAPSULE PO (21:05)
[2020-11-30] MEDS: Atorvastatin Calcium 20 MG TABLET PO (21:05)
--- NOTE | 2020-11-30 23:06 | PC.NURSE ---
AWAITING ROOM ASSIGNMENT ON FLOOR, PT ASKING WHEN SHE WILL GO UPSTAIRS. PT GIVEN PUDDING, CRACKERS AND DIET SODA, OUT OF ALL OTHER FOOD IN ER [place].
[2020-12-01] VITALS (9 sets, daily range): BP systolic 89–134; BP diastolic 41–74; PULSE 65–91; RESP 12–20; TEMP 35.8–36.8; O2SAT 92–97
--- NOTE | 2020-12-01 02:21 | PC.NURSE ---
PT AMBULATORY TO BATHROOM ON HER OWN WITH STEADY GAIT. PT PLACED ON GASOLINE FINISHER UPON RETURN TO ROOM.
[2020-12-01 07:22] LABS: Hematocrit 38.1 % (37-47); Mean Corpuscular HGB Conc 34.1 g/dl (31.0-35.0); Mean Corpuscular Hemoglobin 28.6 pg (27.0-33.0); Mean Corpuscular Volume 83.7 fL (80-98); Mean Platelet Volume 9.7 fL (9.4-12.3); Platelet Count 141 X10*3/uL (160-400); Red Blood Count 4.55 X10*6/uL (4.20-5.50); Red Cell Distribution Width 12.7 % (11.0-16.0); White Blood Count 2.6 X10*3/uL (4.8-10.8)
[2020-12-01 07:59] LABS: SARS COV2 IgG Negative (Negative)
[2020-12-01 07:59] LABS: Alanine Aminotransferase 55 U/L (0-31); Albumin Level 3.9 g/dL (3.5-5.0); Alkaline Phosphatase 83 U/L (39-117); Anion Gap 14 (12-20); Aspartate Amino Transferase 50 U/L (5-31); Bilirubin Direct < 0.2 mg/dL (0.0-0.5); Bilirubin Total < 0.2 mg/dL (0.0-1.0); Blood Urea Nitrogen 11 mg/dL (9-16); Calcium 8.4 mg/dL (8.4-10.2); Carbon Dioxide 25 mmol/L (22-29); Chloride 102 mmol/L (96-108); Creatinine Clr Calc Pharmacy 107.8; Estimated Glomerular Filt Rate > 60; Glucose Random 113 mg/dL (60-115); Sodium 137 mmol/L (135-145); Total Protein 6.7 g/dL (6.5-8.0)
[2020-12-01] MEDS: dexAMETHasone sod phosphate 4 MG/ML VIAL 6 MG IVPUSH (08:43)
[2020-12-01] MEDS: DULoxetine HCl 60 MG CAPSULE.DR PO (08:44)
[2020-12-01] MEDS: Omeprazole 20 MG CAPSULE.DR PO ×2 (08:44→16:35)
[2020-12-01] MEDS: 0.9 % Sodium Chloride Flush 3 ML SYRINGE IVFLUSH ×4 (08:47→20:39)
[2020-12-01] MEDS: Albuterol Sulfate 90 MCG 8 GM INHALER 2 PUFF INHALE ×4 (08:49→21:53)
--- NOTE | 2020-12-01 10:20 | P.PNIM_ITS ---
Subjective Subjective Date of Service: 12/01/20 Interval History: Patient complaining of chest pain with coughing, no overnight fever chills, no other acute issues overnight. ROS General no headache, no dizziness ,no fever chills. CVS no palpitation. Respiratory cough , chest pain with cough, mild shortness of breath. no urinary symptoms of urgency and frequency Physical Exam Vital Signs: Vital Signs: Last Vital Signs Temp 98 F 12/01/20 07:37 Pulse 74 12/01/20 08:53 Resp 18 12/01/20 08:53 BP 134/68 12/01/20 08:53 Pulse Ox 95 12/01/20 08:53 Body Mass Index 25.7 General no acute distress. Neck supple, no JVD. CVS regular rate rhythm, Respiratory lungs diminished breath sound,no respiratory distress, no wheeze, no rhonchi. Gastrointestinal abdomen soft, nontender, bowel sounds audible, no guarding , no rigidity. Extremities no clubbing cyanosis or edema. Neuro nonfocal ,speech clear. Skin no rash Objective Data Current Medications Generic Name Dose Route Start Last Admin Trade Name Freq PRN Reason Stop Dose Admin Albuterol Sulfate 2 puff 12/01/20 00:00 12/01/20 08:56 Albuterol Sulfate 90 Mcg 8 Gm Inhaler INHALE 2 puff [id number] JOAQUIM Administration Atorvastatin Calcium 20 mg 11/30/20 21:00 11/30/20 21:05 Atorvastatin Calcium 20 Mg Tablet PO 20 mg BEDTIME JOAQUIM Administration Cyclobenzaprine HCl 5 mg 11/30/20 20:18 Cyclobenzaprine Hcl 5 Mg Tablet PO BEDTIME PRN muscle spasm Dexamethasone Sodium Phosphate 6 mg 12/01/20 09:00 12/01/20 08:43 Dexamethasone Sod Phosphate 4 Mg/Ml Vial IVPUSH 6 mg DAILY JOAQUIM Administration Docusate Sodium 100 mg 11/30/20 21:00 12/01/20 08:45 Docusate Sodium 100 Mg Capsule PO Not Given BID JOAQUIM Duloxetine HCl 60 mg 12/01/20 09:00 12/01/20 08:44 Duloxetine Hcl 60 Mg Capsule.Dr PO 60 mg DAILY JOAQUIM Administration Enoxaparin Sodium 40 mg 11/30/20 20:30 11/30/20 21:05 Enoxaparin Sodium 40 Mg/0.4 Ml Syringe SUBCUT 40 mg Q24H JOAQUIM Administration Ergocalciferol 1,250 mcg 12/03/20 20:14 Ergocalciferol (Vitamin D2) 1,250 Mcg Capsule PO REAL [facility] Fluticasone Propionate 2 spray 12/01/20 09:00 Fluticasone Propionate Nasal 16 Gm [place] NOSTRIL-B DAILY [facility] Fluticasone/Vilanterol 1 puff 12/01/20 09:00 Fluticasone/Vilanterol 200/25 Blst.W.Dev INHALE DAILY [facility] Gabapentin 300 mg 11/30/20 21:00 11/30/20 21:05 Gabapentin 300 Mg Capsule PO 300 mg BEDTIME [facility] Administration Remdesivir 200 mg/ Sodium 250 mls @ 125 mls/hr 11/30/20 20:00 12/01/20 00:30 Chloride IV Infused ONCE [facility] Infusion Remdesivir 100 mg/ Sodium 250 mls @ 125 mls/hr 12/01/20 20:00 Chloride IV 12/04/20 21:59 DAILY@2000 [facility] Ipratropium [place] 2 puff 11/30/20 20:18 Ipratropium [place] 1 Puff/17 Mcg Inhaler INHALE QID PRN wheezing Lidocaine 1 patch 12/01/20 09:00 12/01/20 08:46 Lidocaine 4 % Patch Adh..Patch TRANSDERMA Not Given DAILY [facility] Loratadine 10 mg 11/30/20 20:18 Loratadine 10 Mg Tablet PO DAILY PRN Allergy Symptoms Melatonin 6 mg 11/30/20 20:45 Melatonin 3 Mg Tablet PO BEDTIME PRN insomnia Montelukast Sodium 10 mg 11/30/20 21:00 11/30/20 21:05 Montelukast Sodium 10 Mg Tablet PO 10 mg BEDTIME [facility] Administration Omeprazole 20 mg 12/01/20 06:30 12/01/20 08:44 Omeprazole 20 Mg Capsule. PO 20 mg BID@0630,1630 [facility] Administration Ondansetron HCl 4 mg 11/30/20 20:22 Ondansetron Hcl 4 Mg/2 Ml Vial IVPUSH Q6H PRN nausea Pharmacy Consult 1 each 11/30/20 19:26 Consult Rx Perform Med Rec MISCELLANE ONCE PRN Consult order Sodium Chloride 3 ml 12/01/20 00:00 12/01/20 08:48 0.9 % Sodium Chloride Flush 3 Ml Syringe IVFLUSH 3 ml QSHIFT [facility] Administration Labs CBC & Chem 7: 12/01/20 07:00 12/01/20 07:00 Assessment and Plan (1) Acute hypoxemic respiratory failure: Status: Acute (2) COVID-19: Status: Acute (3) Pneumonia due to COVID-19 virus: Status: Acute (4) Depression: Status: Acute (5) Anxiety: Status: Acute (6) Migraine headache: Status: Acute (7) Diarrhea: Status: Acute Assessment and Plan: 1. Acute hypoxemic respiratory failure secondary to COVID pneumonia on arrival to ED O2 sat 88 in the room air, currently on room air finger oximetry 95% Continue dexamethasone day 2, patient started on remdesivir by ID day 10/06 end date 12/04 Will add incentive spirometry continue supportive care, cough medication, low procalcitonin less likely bacterial infection therefore hold off on antibiotics No further episode of diarrhea , leukopenia , low platelet and Elevated ferritin likely due to COVID will follow 2. Migraine headache: No acute headaches continue home Neurontin, Cymbalta. medication. 3. Anxiety/depression: Stable 4. History of GERD continue omeprazole 5. History of asthma no acute exacerbation continue home inhalers and on IV steroid DVT prophylaxis with Lovenox
--- NOTE | 2020-12-01 12:14 | MHC.CM.PN ---
PT ON [facility]. CM ATTEMPTED TO CONTACT PT DIRECTLY AT THE NUMBER LISTED ([phone] HOWEVER THE CALL WENT TO . CM CONTACTED PTS HCP/SIGNIFICANT OTHER, RADHA HILTON ([phone]) USING [employer] (#[id number]). RADHA REPORTS THE PT LIVES WITH HIM AND HIS MOTHER. HE STATES THE PT IS INDEPENDENT WITH CARE AND MOBILITY. HE REPORTS THE PT HAS NO SERVICES AND A NEBULIZER FOR DME. PT HAS A HCP ON FILE NAMING RADHA THE PRIMARY AGENT. PT DOES NOT HAVE A PCP LISTED AND RADHA DOES NOT KNOW WHO IT IS BUT STATES THE PT GOES TO [facility]. CURRENT DC PLAN IS HOME WITH NO SERVICES PTS S/O WILL PROVIDE TRANSPORTATION
[2020-12-01 12:41] LABS: Leukocytes Stool Qualitative NEGATIVE (NEGATIVE)
[2020-12-01 13:14] LABS: CDIFF Ag Negative (Negative); CDIFF Internal ctrl Dots and bkg OK (V); CDiff Toxin Negative (Negative)
[2020-12-01] MEDS: ondansetron HCL 4 MG/2 ML VIAL IVPUSH (16:39)
--- NOTE | 2020-12-01 18:39 | PC.NURSE ---
Patient continues to c/o vomiting and diarrhea, Zofran given with some effect, C-Diff negative. Hospitalist notified, awaiting response.
[2020-12-01] MEDS: Enoxaparin Sodium 40 MG/0.4 ML SYRINGE SUBCUT (20:19)
[2020-12-01] MEDS: Atorvastatin Calcium 20 MG TABLET PO (20:19)
[2020-12-01] MEDS: Montelukast Sodium 10 MG TABLET PO (20:19)
[2020-12-01] MEDS: Gabapentin 300 MG CAPSULE PO (20:19)
[2020-12-01] MEDS: Remdesivir 100 MG in 0.9 % Sodium Chloride 230 ML 125 MG IV (20:20)
[2020-12-01] MEDS: Cyclobenzaprine HCl 5 MG TABLET PO (20:20)
[2020-12-01] MEDS: oxyCODONE HCl Immed Release 5 MG TABLET PO (21:49)
[2020-12-02] VITALS (10 sets, daily range): BP systolic 98–118; BP diastolic 59–70; PULSE 68–101; RESP 16–18; TEMP 36–36.7; O2SAT 90–94
[2020-12-02] MEDS: Albuterol Sulfate 90 MCG 8 GM INHALER 2 PUFF INHALE ×5 (00:29→20:05)
[2020-12-02 06:12] LABS: MANUAL DIFF FLAG NO
[2020-12-02] MEDS: Omeprazole 20 MG CAPSULE.DR PO ×2 (06:13→16:03)
[2020-12-02] MEDS: oxyCODONE HCl Immed Release 5 MG TABLET PO (06:13)
[2020-12-02 06:16] LABS: Basophils Percent Auto 0.1 % (0-2); Hematocrit 37.9 % (37-47); Hemoglobin 12.5 g/dl (12.0-16.0); Imm Gran Abs Auto 0.03 X10*3/uL (0.00-0.03); Imm Gran Pct Auto 0.4 % (0.0-0.4); Lymphocytes Absolute Auto 1.6 X10*3/uL (1.2-4.9); Mean Corpuscular Hemoglobin 27.7 pg (27.0-33.0); Mean Platelet Volume 9.5 fL (9.4-12.3); Monocytes Absolute Auto 0.4 X10*3/uL (0.1-1.2); Neutrophils Absolute Auto 5.5 X10*3/uL (2.0-8.3); Neutrophils Percent Auto 73.5 % (45-73); Platelet Count 162 X10*3/uL (160-400); Red Blood Count 4.51 X10*6/uL (4.20-5.50); Red Cell Distribution Width 12.8 % (11.0-16.0); White Blood Count 7.5 X10*3/uL (4.8-10.8)
[2020-12-02] MEDS: Lidocaine 4 % Patch ADH..PATCH 1 PATCH TRANSDERMA (08:09)
[2020-12-02] MEDS: Fluticasone Propionate Nasal 16 GM SPRAY 2 SPRAY NOSTRIL-B (08:09)
[2020-12-02] MEDS: dexAMETHasone sod phosphate 4 MG/ML VIAL 6 MG IVPUSH (08:11)
[2020-12-02] MEDS: Docusate Sodium 100 MG CAPSULE PO ×2 (08:11→20:26)
[2020-12-02] MEDS: 0.9 % Sodium Chloride Flush 3 ML SYRINGE IVFLUSH ×3 (08:11→20:36)
[2020-12-02] MEDS: DULoxetine HCl 60 MG CAPSULE.DR PO (08:11)
[2020-12-02] MEDS: Fluticasone/Vilanterol 200/25 BLST.W.DEV 1 PUFF INHALE (08:32)
--- NOTE | 2020-12-02 09:52 | HO.PM.IMPN ---
Subjective Subjective Date of Service: 12/02/20 Interval History: Patient complaining of lightheadedness with ambulation complaining of nausea decreased by mouth intake cough with deep breathing no fever chills no abdominal pain or diarrhea, oxygenation is stable 92% at room air. ROS General no headache, no dizziness ,no fever chills. CVS no palpitation. Respiratory cough , chest pain with cough, mild shortness of breath. GI decreased by mouth intake, due to nausea. no urinary symptoms of urgency and frequency Physical Exam Vital Signs: Vital Signs: Last Vital Signs Temp 97.2 F 12/02/20 07:42 Pulse 73 12/02/20 07:42 Resp 18 12/02/20 07:42 BP 100/59 L 12/02/20 07:42 Pulse Ox 92 12/02/20 07:42 Body Mass Index 25.7 General no acute distress, appears sick. Neck supple, no JVD. CVS regular rate rhythm, Respiratory lungs diminished breath sound, cough with deep breath, no respiratory distress, no wheeze, no rhonchi. Gastrointestinal abdomen soft, nontender, bowel sounds audible, no guarding , no rigidity. Extremities no clubbing, no cyanosis or edema. Neuro nonfocal ,speech clear. Skin no rash Objective Data Current Medications Generic Name Dose Route Start Last Admin Trade Name Freq PRN Reason Stop Dose Admin Albuterol Sulfate 2 puff 12/01/20 00:00 12/02/20 08:30 Albuterol Sulfate 90 Mcg 8 Gm Inhaler INHALE 2 puff RQ4H JOAQUIM Administration Atorvastatin Calcium 20 mg 11/30/20 21:00 12/01/20 20:19 Atorvastatin Calcium 20 Mg Tablet PO 20 mg BEDTIME JOAQUIM Administration Cyclobenzaprine HCl 5 mg 11/30/20 20:18 12/01/20 20:20 Cyclobenzaprine Hcl 5 Mg Tablet PO 5 mg BEDTIME PRN Administration muscle spasm Dexamethasone Sodium Phosphate 6 mg 12/01/20 09:00 12/02/20 08:11 Dexamethasone Sod Phosphate 4 Mg/Ml Vial IVPUSH 6 mg DAILY JOAQUIM Administration Docusate Sodium 100 mg 11/30/20 21:00 12/02/20 08:11 Docusate Sodium 100 Mg Capsule PO 100 mg BID JOAQUIM Administration Duloxetine HCl 60 mg 12/01/20 09:00 12/02/20 08:11 Duloxetine Hcl 60 Mg Capsule. PO 60 mg DAILY JOAQUIM Administration Enoxaparin Sodium 40 mg 11/30/20 20:30 12/01/20 20:19 Enoxaparin Sodium 40 Mg/0.4 Ml Syringe SUBCUT 40 mg Q24H JOAQUIM Administration Ergocalciferol 1,250 mcg 12/03/20 20:14 Ergocalciferol (Vitamin D2) 1,250 Mcg Capsule PO REAL JOAQUIM Fluticasone Propionate 2 spray 12/01/20 09:00 12/02/20 08:09 Fluticasone Propionate Nasal 16 Gm [place] NOSTRIL-B 2 spray DAILY JOAQUIM Administration Fluticasone/Vilanterol 1 puff 12/01/20 09:00 12/02/20 08:32 Fluticasone/Vilanterol 200/25 Blst.W.Dev INHALE 1 puff DAILY JOAQUIM Administration Gabapentin 300 mg 11/30/20 21:00 12/01/20 20:19 Gabapentin 300 Mg Capsule PO 300 mg BEDTIME JOAQUIM Administration Remdesivir 100 mg/ Sodium 250 mls @ 125 mls/hr 12/01/20 20:00 12/01/20 22:20 Chloride IV 12/04/20 21:59 Infused DAILY@1999 [facility] Infusion Ipratropium [place] 2 puff 11/30/20 20:18 Ipratropium [place] 1 Puff/17 Mcg Inhaler INHALE QID PRN wheezing Lidocaine 1 patch 12/01/20 09:00 12/02/20 08:09 Lidocaine 4 % Patch Adh..Patch TRANSDERMA 1 patch DAILY JOAQUIM Administration Loratadine 10 mg 11/30/20 20:18 Loratadine 10 Mg Tablet PO DAILY PRN Allergy Symptoms Melatonin 6 mg 11/30/20 20:45 Melatonin 3 Mg Tablet PO BEDTIME PRN insomnia Montelukast Sodium 10 mg 11/30/20 21:00 12/01/20 20:19 Montelukast Sodium 10 Mg Tablet PO 10 mg BEDTIME JOAQUIM Administration Omeprazole 20 mg 12/01/20 06:30 12/02/20 06:13 Omeprazole 20 Mg Capsule. PO 20 mg BID@0630,1630 JOAQUIM Administration Ondansetron HCl 4 mg 11/30/20 20:22 12/01/20 16:39 Ondansetron Hcl 4 Mg/2 Ml Vial IVPUSH 4 mg Q6H PRN Administration nausea Pharmacy Consult 1 each 11/30/20 19:26 Consult Rx Perform Med Rec MISCELLANE ONCE PRN Consult order Sodium Chloride 3 ml 12/01/20 00:00 12/02/20 08:11 0.9 % Sodium Chloride Flush 3 Ml Syringe IVFLUSH 3 ml QSHIFT JOAQUIM Administration Labs CBC & Chem 7: 12/02/20 05:59 12/01/20 07:00 Microbiology Microbiology Results: Microbiology 11/30/20 13:14 Blood - Subclavian Blood Culture - Preliminary No growth after 24 hours. 11/30/20 12:30 Blood - Subclavian Blood Culture - Preliminary No growth after 24 hours. Assessment and Plan (1) Acute hypoxemic respiratory failure: Status: Acute (2) COVID-19: Status: Acute (3) Pneumonia due to COVID-19 virus: Status: Acute (4) Depression: Status: Acute (5) Anxiety: Status: Acute (6) Migraine headache: Status: Acute Assessment and Plan: 1. Acute hypoxemic respiratory failure secondary to COVID pneumonia on arrival to ED O2 sat 88 in the room air, currently on room air finger oximetry 95% Continue dexamethasone day 11/08, patient started on remdesivir by ID day 11/03 end date 12/04 Encourage incentive spirometry continue supportive care, cough medication, encourage by mouth fluid, rest, continue above treatment follow clinical course low procalcitonin no evidence of bacterial infection, hold antibiotic. No further episode of diarrhea , leukopenia resolved , platelet count normalized 2. Migraine headache: No acute headaches continue home Neurontin, Cymbalta. medication. 3. Anxiety/depression: Stable 4. History of GERD continue omeprazole 5. History of asthma no acute exacerbation continue home inhalers and on IV steroid DVT prophylaxis with Lovenox
[2020-12-02] MEDS: Enoxaparin Sodium 40 MG/0.4 ML SYRINGE SUBCUT (20:25)
[2020-12-02] MEDS: Atorvastatin Calcium 20 MG TABLET PO (20:26)
[2020-12-02] MEDS: Gabapentin 300 MG CAPSULE PO (20:26)
[2020-12-02] MEDS: Montelukast Sodium 10 MG TABLET PO (20:26)
[2020-12-02] MEDS: Melatonin 3 MG TABLET 6 MG PO (20:27)
[2020-12-02] MEDS: Remdesivir 100 MG in 0.9 % Sodium Chloride 230 ML 125 MG IV (20:39)
[2020-12-03] VITALS (8 sets, daily range): BP systolic 105–126; BP diastolic 56–68; PULSE 68–91; RESP 18–20; TEMP 36.4–36.9; O2SAT 90–95
[2020-12-03] MEDS: Omeprazole 20 MG CAPSULE.DR PO ×2 (06:19→16:52)
[2020-12-03 07:01] LABS: Alanine Aminotransferase 33 U/L (0-31); Albumin Level 3.6 g/dL (3.5-5.0); Alkaline Phosphatase 74 U/L (39-117); Anion Gap 13 (12-20); Aspartate Amino Transferase 23 U/L (5-31); Bilirubin Direct 0.2 mg/dL (0.0-0.5); Bilirubin Total 0.4 mg/dL (0.0-1.0); Blood Urea Nitrogen 14 mg/dL (9-16); Calcium 8.4 mg/dL (8.4-10.2); Carbon Dioxide 29 mmol/L (22-29); Chloride 100 mmol/L (96-108); Estimated Glomerular Filt Rate > 60; Glucose Random 95 mg/dL (60-115); Potassium 3.5 mmol/L (3.3-5.1); Sodium 138 mmol/L (135-145); Total Protein 6.2 g/dL (6.5-8.0)
[2020-12-03] MEDS: Fluticasone/Vilanterol 200/25 BLST.W.DEV 1 PUFF INHALE (08:14)
[2020-12-03] MEDS: Albuterol Sulfate 90 MCG 8 GM INHALER 2 PUFF INHALE ×4 (08:14→20:00)
[2020-12-03] MEDS: Lidocaine 4 % Patch ADH..PATCH 1 PATCH TRANSDERMA (09:42)
[2020-12-03] MEDS: 0.9 % Sodium Chloride Flush 3 ML SYRINGE IVFLUSH ×2 (09:42→16:53)
[2020-12-03] MEDS: dexAMETHasone sod phosphate 4 MG/ML VIAL 6 MG IVPUSH (09:42)
[2020-12-03] MEDS: Fluticasone Propionate Nasal 16 GM SPRAY 2 SPRAY NOSTRIL-B (09:43)
[2020-12-03] MEDS: DULoxetine HCl 60 MG CAPSULE.DR PO (09:43)
[2020-12-03] MEDS: Docusate Sodium 100 MG CAPSULE PO ×2 (09:43→20:44)
[2020-12-03] MEDS: guaiFENesin DM 100/10/5 ML 5 ML SYRUP 10 ML PO ×3 (12:35→20:44)
--- NOTE | 2020-12-03 14:45 | HO.PM.IMPN ---
Subjective Subjective Date of Service: 12/03/20 Interval History: Patient complaining of mid chest and back pain due to coughing, unable to take deep breaths since develop significant coughing episodes, no fever chills, oxygenation borderline low at 90, complaining of weakness and poor by mouth intake. ROS General no headache, no dizziness ,no fever chills. CVS no palpitation. Respiratory cough , chest pain with cough, mild shortness of breath. GI decreased by mouth intake, nausea. no urinary symptoms of urgency and frequency Physical Exam Vital Signs: Vital Signs: Last Vital Signs Temp 97.5 F 12/03/20 11:06 Pulse 82 12/03/20 11:06 Resp 20 12/03/20 11:06 BP 117/68 12/03/20 11:06 Pulse Ox 92 12/03/20 11:06 Body Mass Index 25.7 General no acute distress, appears sick. Neck supple, no JVD. CVS regular rate rhythm, Respiratory lungs diminished breath sound, cough with deep breath, no respiratory distress, no wheeze, no rhonchi. Gastrointestinal abdomen soft, nontender, bowel sounds audible, no guarding , no rigidity. Extremities no clubbing, no cyanosis or edema. Neuro nonfocal ,speech clear. Skin no rash Objective Data Current Medications Generic Name Dose Route Start Last Admin Trade Name Freq PRN Reason Stop Dose Admin Albuterol Sulfate 2 puff 12/01/20 00:00 12/03/20 12:28 Albuterol Sulfate 90 Mcg 8 Gm Inhaler INHALE 2 puff RQ4H JOAQUIM Administration Atorvastatin Calcium 20 mg 11/30/20 21:00 12/02/20 20:26 Atorvastatin Calcium 20 Mg Tablet PO 20 mg BEDTIME JOAQUIM Administration Cyclobenzaprine HCl 5 mg 11/30/20 20:18 12/01/20 20:20 Cyclobenzaprine Hcl 5 Mg Tablet PO 5 mg BEDTIME PRN Administration muscle spasm Dexamethasone Sodium Phosphate 6 mg 12/01/20 09:00 12/03/20 09:42 Dexamethasone Sod Phosphate 4 Mg/Ml Vial IVPUSH 6 mg DAILY JOAQUIM Administration Docusate Sodium 100 mg 11/30/20 21:00 12/03/20 09:43 Docusate Sodium 100 Mg Capsule PO 100 mg BID JOAQUIM Administration Duloxetine HCl 60 mg 12/01/20 09:00 12/03/20 09:43 Duloxetine Hcl 60 Mg Capsule. PO 60 mg DAILY JOAQUIM Administration Enoxaparin Sodium 40 mg 11/30/20 20:30 12/02/20 20:25 Enoxaparin Sodium 40 Mg/0.4 Ml Syringe SUBCUT 40 mg Q24H JOAQUIM Administration Ergocalciferol 1,250 mcg 12/03/20 20:14 Ergocalciferol (Vitamin D2) 1,250 Mcg Capsule PO REAL [facility] Fluticasone Propionate 2 spray 12/01/20 09:00 12/03/20 09:43 Fluticasone Propionate Nasal 16 Gm [place] NOSTRIL-B 2 spray DAILY JOAQUIM Administration Fluticasone/Vilanterol 1 puff 12/01/20 09:00 12/03/20 08:14 Fluticasone/Vilanterol 200/25 Blst.W.Dev INHALE 1 puff DAILY [facility] Administration Gabapentin 300 mg 11/30/20 21:00 12/02/20 20:26 Gabapentin 300 Mg Capsule PO 300 mg BEDTIME JOAQUIM Administration Guaifenesin/Dextromethorphan 10 ml 12/03/20 10:00 12/03/20 12:35 Guaifenesin Dm 100/10/5 Ml 5 Ml Syrup PO 10 ml Q6H [facility] Administration Remdesivir 100 mg/ Sodium 250 mls @ 125 mls/hr 12/01/20 20:00 12/02/20 22:51 Chloride IV 12/04/20 21:59 Infused DAILY@2000 [facility] Infusion Ipratropium [place] 2 puff 11/30/20 20:18 Ipratropium [place] 1 Puff/17 Mcg Inhaler INHALE QID PRN wheezing Lidocaine 1 patch 12/01/20 09:00 12/03/20 09:42 Lidocaine 4 % Patch Adh..Patch TRANSDERMA 1 patch DAILY JOAQUIM Administration Loratadine 10 mg 11/30/20 20:18 Loratadine 10 Mg Tablet PO DAILY PRN Allergy Symptoms Melatonin 6 mg 11/30/20 20:45 12/02/20 20:27 Melatonin 3 Mg Tablet PO 6 mg BEDTIME PRN Administration insomnia Montelukast Sodium 10 mg 11/30/20 21:00 12/02/20 20:26 Montelukast Sodium 10 Mg Tablet PO 10 mg BEDTIME JOAQUIM Administration Omeprazole 20 mg 12/01/20 06:30 12/03/20 06:19 Omeprazole 20 Mg Capsule.Dr PO 20 mg BID@1417,2929 [facility] Administration Ondansetron HCl 4 mg 11/30/20 20:22 12/01/20 16:39 Ondansetron Hcl 4 Mg/2 Ml Vial IVPUSH 4 mg Q6H PRN Administration nausea Pharmacy Consult 1 each 11/30/20 19:26 Consult Rx Perform Med Rec MISCELLANE ONCE PRN Consult order Sodium Chloride 3 ml 12/01/20 00:00 12/03/20 09:42 0.9 % Sodium Chloride Flush 3 Ml Syringe IVFLUSH 3 ml QSHIFT JOAQUIM Administration Labs CBC & Chem 7: 12/02/20 05:59 12/03/20 06:05 Microbiology Microbiology Results: Microbiology 11/30/20 13:14 Blood - Subclavian Blood Culture - Preliminary No growth after 48 hours. 11/30/20 12:30 Blood - Subclavian Blood Culture - Preliminary No growth after 48 hours. Assessment and Plan (1) Acute hypoxemic respiratory failure: Status: Acute (2) COVID-19: Status: Acute (3) Pneumonia due to COVID-19 virus: Status: Acute (4) Depression: Status: Acute (5) Anxiety: Status: Acute (6) Migraine headache: Status: Acute Assessment and Plan: 1. Acute hypoxemic respiratory failure secondary to COVID pneumonia on arrival to ED O2 sat 88 in the room air, currently on room air finger oximetry 90% Persistent symptoms of cough, muscular chest and back pain due to coughing. Continue dexamethasone day 12/09, patient started on remdesivir by ID day 12/04 end date 12/04 Encourage incentive spirometry continue supportive care, add scheduled and as needed cough medication, encourage by mouth intake, rest, continue above treatment follow clinical course low procalcitonin no evidence of bacterial infection, hold antibiotic. No further episode of diarrhea , leukopenia resolved , platelet count normalized, encourage to keep changing position in bed and to be out of bed to chair. 2. Migraine headache: No acute headaches continue home Neurontin, Cymbalta. medication. 3. Anxiety/depression: Stable 4. History of GERD continue omeprazole. 5. History of asthma no acute exacerbation continue home inhalers and on IV steroid DVT prophylaxis with Lovenox
[2020-12-03] MEDS: Remdesivir 100 MG in 0.9 % Sodium Chloride 230 ML 125 MG IV (20:43)
[2020-12-03] MEDS: Enoxaparin Sodium 40 MG/0.4 ML SYRINGE SUBCUT (20:43)
[2020-12-03] MEDS: Atorvastatin Calcium 20 MG TABLET PO (20:44)
[2020-12-03] MEDS: Montelukast Sodium 10 MG TABLET PO (20:44)
[2020-12-03] MEDS: Gabapentin 300 MG CAPSULE PO (20:44)
[2020-12-03] MEDS: Ergocalciferol (Vitamin D2) 1,250 MCG CAPSULE 1250 MCG PO (20:59)
[2020-12-04] VITALS: BP 111/64; PULSE 70; RESP 18; TEMP 36.3; O2SAT 91
[2020-12-04] MEDS: 0.9 % Sodium Chloride Flush 3 ML SYRINGE IVFLUSH ×2 (01:22→08:48)
[2020-12-04] MEDS: guaiFENesin DM 100/10/5 ML 5 ML SYRUP 10 ML PO ×2 (03:55→08:49)
[2020-12-04 04:00] VITALS: BP 106/59; PULSE 67; RESP 18; TEMP 36.9; O2SAT 91
[2020-12-04] MEDS: Omeprazole 20 MG CAPSULE.DR PO (06:09)
[2020-12-04 07:34] VITALS: BP 101/60; PULSE 77; RESP 20; TEMP 36.5; O2SAT 91
[2020-12-04] MEDS: Docusate Sodium 100 MG CAPSULE PO (08:48)
[2020-12-04] MEDS: dexAMETHasone sod phosphate 4 MG/ML VIAL 6 MG IVPUSH (08:48)
[2020-12-04] MEDS: DULoxetine HCl 60 MG CAPSULE.DR PO (08:49)
[2020-12-04] MEDS: Fluticasone Propionate Nasal 16 GM SPRAY 2 SPRAY NOSTRIL-B (08:49)
[2020-12-04] MEDS: Lidocaine 4 % Patch ADH..PATCH 1 PATCH TRANSDERMA (08:49)
[2020-12-04 10:59] VITALS: PULSE 87; O2SAT 95
[2020-12-04] MEDS: Albuterol Sulfate 90 MCG 8 GM INHALER 2 PUFF INHALE (10:59)
[2020-12-04 11:33] VITALS: BP 122/67; PULSE 83; RESP 20; TEMP 36.3; O2SAT 91
--- NOTE | 2020-12-04 12:11 | PM.DS ---
DS: Providers Provider Date of Service: 12/04/20 Date of admission: 11/30/20 20:18 Primary care physician: [facility] DS: Diagnosis Discharge Diagnosis (1) Acute hypoxemic respiratory failure: Status: Acute (2) COVID-19: Status: Acute (3) Pneumonia due to COVID-19 virus: Status: Acute (4) Depression: Status: Acute (5) Anxiety: Status: Acute (6) Migraine headache: Status: Acute DS: Medications Discharge Medications Home Medications: Home Medications Medication Instructions Recorded Confirmed Atrovent HFA 2 puff INHALATION QID PRN 11/30/20 11/30/20 Breo Ellipta 1 puff INHALATION DAILY 11/30/20 11/30/20 cetirizine 10 mg PO DAILY PRN 11/30/20 11/30/20 diclofenac sodium 2 g TOPICAL QID 11/30/20 11/30/20 docusate sodium [DOK] 100 mg PO BID 11/30/20 11/30/20 duloxetine 60 mg PO DAILY 11/30/20 11/30/20 ergocalciferol (vitamin D2) 1,250 mcg PO REAL 11/30/20 11/30/20 fluticasone propionate 2 spray INTRANASAL DAILY 11/30/20 11/30/20 gabapentin 300 mg PO BEDTIME 11/30/20 11/30/20 lidocaine [Lidoderm] 1 patch TOPICAL DAILY 11/30/20 11/30/20 melatonin 5 - 10 mg PO BEDTIME PRN 11/30/20 11/30/20 montelukast 10 mg PO BEDTIME 11/30/20 11/30/20 omeprazole 20 mg PO BID 11/30/20 11/30/20 polyethylene glycol 3350 17 g PO DAILY 11/30/20 11/30/20 simvastatin 40 mg PO BEDTIME 11/30/20 11/30/20 Previous Rx's Medication Instructions Recorded cyclobenzaprine 5 mg tablet 5 mg PO BEDTIME PRN #30 tab 08/01/20 dexamethasone 6 mg PO DAILY #5 tab 12/04/20 dextromethorphan-guaifenesin 10 ml PO Q6H #240 ml 12/04/20 DS: Summary Hospital Course Hospital Course: History of presenting illness Chief Complaint: sob , nausea vomiting diarrhea. 55 y/o f with hx asthma, migraine headaches ,GERD, anxiety/depression and chronic back pain : She came to the hospital- complaint since if November 24 started to feel unwell and she had her grandson visiting who was also having some upper respiratory symptoms just prior to her having onset of her symptoms he tested positive for COVID and she went to [facility] 2 days ago on November 28 for her symptoms and was tested for COVID-19 and she was positive. she has had some nausea vomiting and mild diarrhea also having some cough that is making her underlying asthma worse with some slight wheezing. She also complain of pleuritic chest discomfort and cough. Positive chills at night with subjective fevers. She says that she has diarrhea on and off but no diarrhea since she came to the hospital in the ED as per ED physician. Past medical history as per patient: Anxiety Arthritis Asthma Depression Migraine headache Surgical History : Hx of cholecystectomy Hx of elbow surgery Hx of hysterectomy due to excessive bleeding as per patient. 1. Acute hypoxemic respiratory failure secondary to COVID pneumonia on arrival to ED O2 sat was 88 room air, currently on room air finger oximetry 91-92% at rest and with activity, Continue to have cough and chest discomfort with coughing, no shortness of breath ,no fever chills, patient received remdesivir x 4 days and s/p IV dexamethasone, will discharge patient home on by mouth dexamethasone 6 mg for 5 more days, encourage out of bed to chair,continue incentive spirometry , rest, drink plenty of fluids and use cough medication as needed. 2. Migraine headache: No acute headaches noted, continue home Neurontin, and Cymbalta. 3. Anxiety/depression: Stable 4. History of GERD continue omeprazole. 5. History of asthma no acute exacerbation continue home inhalers and steroid Time Spent with Patient Time attestation: Total time spent providing and/or coordinating discharge services: Discharge coordination time: Greater than 30 minutes Physical Exam Vital Signs: Vital Signs: Last Vital Signs Temp 97.3 F 12/04/20 11:33 Pulse 83 12/04/20 11:33 Resp 20 12/04/20 11:33 BP 122/67 12/04/20 11:33 Pulse Ox 91 L 12/04/20 11:33 Body Mass Index 25.7 General no acute distress, sitting comfortably on chair Neck supple, no JVD. CVS regular rate rhythm, Respiratory lungs diminished breath sound, bilateral air entry improved,no respiratory distress, no wheeze, no rhonchi. Gastrointestinal abdomen soft, nontender, bowel sounds audible, no guarding , no rigidity. Extremities no clubbing, no cyanosis or edema. Neuro nonfocal ,speech clear. Skin no rash DS: Data Data Completed and Pending Labs on day of discharge: Preliminary micro results at discharge 11/30/20 13:14 Blood Culture - Preliminary Blood - Subclavian No growth after 48 hours. 11/30/20 12:30 Blood Culture - Preliminary Blood - Subclavian No growth after 48 hours. Discharge Plan Discharge Patient Disposition: Home, Self-Care Referrals: [facility] [Primary Care Provider] - Discharge Medications: New dextromethorphan-guaifenesin 10-100 mg/5 mL Syrup 10 ml PO Q6H Qty: 240 RF: 0 dexamethasone 6 mg tablet 6 mg PO DAILY Qty: 5 RF: 0 Continued cyclobenzaprine 5 mg tablet 5 mg PO BEDTIME PRN (Reason: muscle spasm) Qty: 30 RF: 5 cetirizine 10 mg tablet 10 mg PO DAILY PRN (Reason: Allergy Symptoms) RF: 0 simvastatin 40 mg tablet 40 mg PO BEDTIME RF: 0 lidocaine [Lidoderm] 5 % adhesive patch,medicated 1 patch topical DAILY RF: 0 docusate sodium [DOK] 100 mg capsule 100 mg PO BID RF: 0 gabapentin 300 mg capsule 300 mg PO BEDTIME RF: 0 omeprazole 20 mg capsule,delayed release(DR/EC) 20 mg PO BID RF: 0 montelukast 10 mg tablet 10 mg PO BEDTIME RF: 0 ergocalciferol (vitamin D2) 1,250 mcg (50,000 unit) capsule 1,250 mcg PO REAL RF: 0 polyethylene glycol 3350 17 gram/dose powder 17 g PO DAILY RF: 0 fluticasone propionate 50 mcg/actuation spray,suspension 2 spray intranasal DAILY RF: 0 duloxetine 60 mg capsule,delayed release(DR/EC) 60 mg PO DAILY RF: 0 Atrovent HFA 17 mcg/actuation HFA aerosol inhaler 2 puff inhalation QID PRN (Reason: wheezing) RF: 0 diclofenac sodium 1 % gel 2 g topical QID RF: 0 melatonin 5 mg tablet 5 - 10 mg PO BEDTIME PRN (Reason: insomnia) RF: 0 Breo Ellipta 200-25 mcg/dose blister with device 1 puff inhalation DAILY RF: 0 Discharge Orders: Discharge Order (Routine); Ordered 12/04/20 Ordered By: Cesar Reddy Diet: low fat, low cholesterol Activity on Discharge: As tolerated Stand Alone Forms: Patient Portal Discharge page Care Plan Goals: As above Health Concerns: COVID-19 pneumonia use cough medication and dexamethasone for 5 more days, rest, drink plenty of fluids, return to check with any worsening shortness of breath. Plan of Treatment: Follow-up with primary care physician in 1 week
--- NOTE | 2020-12-04 12:39 | MHC.CM.PN ---
Patient has been medically cleared for dc to [facility] today, no services.
== END 2020-12-04 13:15 | disposition home or self-care (01) | DRG 137 ==
LOC: HO.ED 20:04 → HO.EDOVER 20:45 → HO.IMC 12-01 10:55
PROVIDERS: Nurse Practitioner Primary Care; Admitting Provider Internal Medicine; Emergency Provider Emergency Medicine Emergency Medical Services; Visit Provider Hospitalist
DX: U07.1 COVID-19 (principal); J96.01 Acute respiratory failure with hypoxia; J12.82 Pneumonia due to coronavirus disease 2019; J45.909 Unspecified asthma, uncomplicated; F32.9 Major depressive disorder, single episode, unspecified; F41.9 Anxiety disorder, unspecified; G43.909 Migraine, unspecified, not intractable, without status migrainosus; K21.9 Gastro-esophageal reflux disease without esophagitis; Z79.52 Long term (current) use of systemic steroids; Z79.899 Other long term (current) drug therapy
CPT/HCPCS: 36415; 71045; 71275; 80048; 80053; 80076; 81001; 82728; 83605; 83615; 83690; 83880; 84145; 84484; 85025; 85027; 85379; 85610; 85730; 86140; 86769; 87040; 87324; 87449; 89055; 93005; 96374; 96375; 99285; J1100; J1650; J2405; J3490; Q9967

== ENCOUNTER 2020-12-10 07:42 | Emergency (ER) | payer MEDICAID, SELFPAY ==
--- NOTE | ~2020-12-10 | XR_ITS ---
EXAMINATION: XR CHEST CLINICAL INFORMATION: Chest pain. Shortness of breath. History of COVID. COMPARISON: Chest done on 11/30/2020. TECHNIQUE: Frontal view of the chest was obtained. FINDINGS: Improved aeration is noted at both lower lobes since the prior chest radiograph done on 11/30/2020 without resolution. No new abnormalities. The heart size is within normal limit. There is no pleural effusion or pneumothorax present. The visualized upper abdomen is unremarkable. XR/XR chest 1V IMPRESSION: Interval improvement without resolution of previously documented predominantly bilateral lower lobar airspace disease.
[2020-12-10 08:11] VITALS: BP 117/69; PULSE 66; RESP 18; TEMP 36.7; O2SAT 97; BMI 26.5
--- NOTE | 2020-12-10 08:52 | ECG_ITS ---
Test Reason : WEAKNESS Blood Pressure : / mmHG Vent. Rate : 066 BPM Atrial Rate : 066 BPM P-R Int : 150 ms QRS Dur : 088 ms QT Int : 436 ms P-R-T Axes : 038 -02 032 degrees QTc Int : 457 ms Normal sinus rhythm Minimal voltage criteria for LVH, may be normal variant Borderline ECG When compared with ECG of 30-NOV-2020 12:39, No significant change was found Referred By: Mar Vanegas Electronically Signed By:TRUDY BURROWS
[2020-12-10 09:26] LABS: MANUAL DIFF FLAG NO
[2020-12-10 09:27] LABS: Basophils Percent Auto 0.2 % (0-2); Eosinophils Absolute Auto 0.1 X10*3/uL (0.0-0.4); Eosinophils Percent Auto 0.9 % (0-4); Hematocrit 40.4 % (37-47); Hemoglobin 13.2 g/dl (12.0-16.0); Imm Gran Abs Auto 0.18 X10*3/uL (0.00-0.03); Imm Gran Pct Auto 1.5 % (0.0-0.4); Lymphocytes Absolute Auto 4.6 X10*3/uL (1.2-4.9); Lymphocytes Percent Auto 37.1 % (20-40); Mean Corpuscular HGB Conc 32.7 g/dl (31.0-35.0); Mean Corpuscular Hemoglobin 28.1 pg (27.0-33.0); Mean Platelet Volume 8.9 fL (9.4-12.3); Monocytes Percent Auto 8.3 % (2-11); Neutrophils Absolute Auto 6.4 X10*3/uL (2.0-8.3); Platelet Count 361 X10*3/uL (160-400); Red Cell Distribution Width 13.3 % (11.0-16.0); White Blood Count 12.4 X10*3/uL (4.8-10.8)
[2020-12-10 09:35] LABS: Glucose Urine UA NEG (NEG); Leukocyte Esterase Urine NEG (NEG); Nitrite Urine NEG (NEG); Specific Gravity - Urine 1.025 (1.005-1.025); Urine Blood NEG (NEG); Urine Ketones NEG (NEG); Urine Protein NEG (NEG-TRACE)
[2020-12-10 09:36] LABS: Appearance Urine HAZY; Color Urine YELLOW
[2020-12-10 09:36] LABS: Prothrombin Time 11.3 SEC (10.8-13.0)
[2020-12-10 09:50] LABS: D Dimer < 200 NG/ML
[2020-12-10 09:53] LABS: Alanine Aminotransferase 24 U/L (0-31); Albumin Level 3.7 g/dL (3.5-5.0); Alkaline Phosphatase 74 U/L (39-117); Anion Gap 13 (12-20); Aspartate Amino Transferase 12 U/L (5-31); Bilirubin Direct 0.2 mg/dL (0.0-0.5); Bilirubin Total 0.4 mg/dL (0.0-1.0); Blood Urea Nitrogen 10 mg/dL (9-16); C Reactive Protein 0.18 mg/dL (< or = 0.50); Carbon Dioxide 27 mmol/L (22-29); Chloride 105 mmol/L (96-108); Creatinine Clr Calc Pharmacy 91.9; Estimated Glomerular Filt Rate > 60; Glucose Random 88 mg/dL (60-115); Lactate Dehydrogenase 163 U/L (122-220); Magnesium 2.4 mg/dL (1.6-2.6); Potassium 4.1 mmol/L (3.3-5.1); Sodium 141 mmol/L (135-145); Total Protein 6.5 g/dL (6.5-8.0)
[2020-12-10 09:57] LABS: B Type Natriuretic Peptide 14 pg/mL (<100); Troponin-I High Sensitivity < 3.5 ng/L (<3.5-17.0)
[2020-12-10 10:00] VITALS: BP 109/64; PULSE 63; RESP 18; O2SAT 97
[2020-12-10 10:12] LABS: Ferritin 186 ng/mL (10-250)
[2020-12-10] MEDS: 0.9 % Sodium Chloride 1,000 ML 999 ML IVCONT (10:18)
--- NOTE | 2020-12-10 10:56 | ED.WEAKNESS ---
HPI - Weakness General Chief complaint: Weakness Stated complaint: covid+ Time Seen by Provider: 12/10/20 08:13 Source: patient Mode of arrival: ambulatory History of Present Illness HPI Narrative: 55-year-old female with a past medical history of anxiety, arthritis, asthma, depression, COVID-19 positive on 11/28 previously admitted to our hospital presenting to the ED complaining persistent generalized fatigue/weakness, decreased p.o. intake, nausea, and right sided rib/flank pain since last night. Admits pain is worse with deep inspiration. Reports continued mild SOB since COVID-19 diagnosis, on worsened. Denies fever, chills, abdominal pain, vomiting, diarrhea, LE edema, history of blood clots MD Complaint: generalized weakness and lack of energy Related Data Home Medications Medication Instructions Recorded Confirmed Atrovent HFA 2 puff INHALATION QID PRN 11/30/20 11/30/20 Breo Ellipta 1 puff INHALATION DAILY 11/30/20 11/30/20 cetirizine 10 mg PO DAILY PRN 11/30/20 11/30/20 diclofenac sodium 2 g TOPICAL QID 11/30/20 11/30/20 docusate sodium [DOK] 100 mg PO BID 11/30/20 11/30/20 duloxetine 60 mg PO DAILY 11/30/20 11/30/20 ergocalciferol (vitamin D2) 1,250 mcg PO REAL 11/30/20 11/30/20 fluticasone propionate 2 spray INTRANASAL DAILY 11/30/20 11/30/20 gabapentin 300 mg PO BEDTIME 11/30/20 11/30/20 lidocaine [Lidoderm] 1 patch TOPICAL DAILY 11/30/20 11/30/20 melatonin 5 - 10 mg PO BEDTIME PRN 11/30/20 11/30/20 montelukast 10 mg PO BEDTIME 11/30/20 11/30/20 omeprazole 20 mg PO BID 11/30/20 11/30/20 polyethylene glycol 3350 17 g PO DAILY 11/30/20 11/30/20 simvastatin 40 mg PO BEDTIME 11/30/20 11/30/20 Previous Rx's Medication Instructions Recorded cyclobenzaprine 5 mg tablet 5 mg PO BEDTIME PRN #30 tab 08/01/20 dexamethasone 6 mg PO DAILY #5 tab 12/04/20 dextromethorphan-guaifenesin 10 ml PO Q6H #240 ml 12/04/20 Allergies Allergy/AdvReac Type Severity Reaction Status Date / Time pollen extracts [POLLEN] Allergy Unknown RUNNY Verified 12/02/20 11:29 NOSE, ITCHY EYES seasonl allergies Allergy Unknown asthma Uncoded 12/02/20 11:29 attacks Review of Systems Review of Systems: Constitutional: No Fever, +Fatigue, No Malaise Cardiovascular: + Chest Pain, No SOB, No Orthopnea, No Edema Respiratory: No Cough, No Sputum, No Dyspnea Gastrointestinal: + Nausea, No Vomiting, No Diarrhea, No Abdominal pain Genitourinary: No Dysuria, No Urinary Frequency, No Hematuria Musculoskeletal: No joint pain, + Myalgias, No Joint Swelling Skin: No Skin Lesions, No rash Neuro: + Weakness, No Numbness, No Paresthesias, No Loss of Consciousness, + lightheadedness, No Headache Yes all other systems are reviewed and are negative FOR[facility]LY [facility] Past Medical History Attestation statement: The following information was validated with the patient. Medical History (Updated 12/10/20 @ 11:25 by APOLINAR Escobedo) Anxiety Arthritis Asthma Depression Migraine headache Surgical History Hx of cholecystectomy Hx of elbow surgery Hx of hysterectomy Social History Social History Household Members: Spouse Housing: House Smoking Status: Never smoker Advance Directives: No service: No Current occupational status: unemployed Physical Exam Vital Signs: Vital Signs: Last Vital Signs Temp 98.0 F 12/10/20 08:11 Pulse 63 12/10/20 10:00 Resp 18 12/10/20 10:00 BP 109/64 12/10/20 10:00 Pulse Ox 97 12/10/20 10:00 Body Mass Index 26.5 Const: General: cooperative, healthy appearing, comfortable and no acute distress Orientation/consciousness: patient oriented x3 Limitations: no limitations HENMT: Head: Yes normal to inspection Ears: hearing grossly normal bilaterally General nose exam: Normal external nose present Face and sinus: Yes normal facial exam Mouth: Normal oral and palatal mucosa present Throat: Yes posterior oropharynx normal, Yes uvula midline, No abnormal tonsil and No peritonsillar mass Eyes: General: appearance normal, both eyes and all related structures EOM: EOMs intact bilaterally Neck: Neck: Yes normal visual inspection and Yes no meningeal signs Chest: Chest palpation & inspection: normal inspection of the chest, no crepitus and tenderness (Over right lower chest wall reproducing subjective complaints) Resp: Effort & Inspection: normal respiratory effort Auscultation: clear to auscultation bilaterally, no rales, no rhonchi and no wheezes Cardio: Rate: regular rate Heart sounds: S1 normal heart sound present and S2 normal heart sound present GI: Inspection: Yes normal to inspection Palpation (GI): Soft to palpation, nontender, no guarding and not rigid : General: Yes CVA tenderness on the right Skin: Rashes: no rashes Wounds: no wounds Neuro: General: patient oriented x3 and no meningeal signs Gait exam (Neuro): Normal gait present Extrem: General: Yes normal to inspection, Yes no pedal edema and Yes no calf tenderness Course Course Course Narrative: -mild leukocytosis of 12.4, D-dimer negative, troponin negative, labs otherwise unremarkable -UA neg XR chest 1V IMPRESSION: Interval improvement without resolution of previously documented predominantly bilateral lower lobar airspace disease >> results discussed with patient including worrisome signs and symptoms and strict return precautions. Patient verbalized understanding feel safe for discharge home to follow-up with PCP. MDM - Weakness MDM Narrative Medical decision making narrative: 55-year-old female with a past medical history of anxiety, arthritis, asthma, depression, COVID-19 positive on 11/28 previously admitted to our hospital presenting to the ED complaining persistent generalized fatigue/weakness, decreased p.o. intake, nausea, and right sided rib/flank pain since last night. On exam VSS, NAD/well-appearing, lungs CTA, right-sided chest pain reproducible, +R CVAT. Concern for residual COVID-19 symptoms vs pneumonia vs PE vs renal stone Plan: EKG, labs, UA, CXR, IVF, reassess Medical Records Attestation: I reviewed the patient's medical records. Lab Data Attestation: I reviewed the patient's lab results. Result diagrams: 12/10/20 09:20 12/10/20 09:20 Labs: Lab Results 12/10/20 12/10/20 12/10/20 Range/Units 09:20 09:20 09:20 WBC 12.4 H (4.8-10.8) X10*3/uL RBC 4.70 (4.20-5.50) X10*6/uL Hgb 13.2 (12.0-16.0) g/dl Hct 40.4 (37-47) % MCV 86.0 (80-98) fL MCH 28.1 (27.0-33.0) pg MCHC 32.7 (31.0-35.0) g/dl RDW 13.3 (11.0-16.0) % Plt Count 361 D (160-400) X10*3/uL MPV 8.9 L (9.4-12.3) fL Immature Gran % (Auto) 1.5 H (0.0-0.4) % Neut % (Auto) 52.0 (45-73) % Lymph % (Auto) 37.1 (20-40) % [place] % (Auto) 8.3 (2-11) % Eos % (Auto) 0.9 (0-4) % Baso % (Auto) 0.2 (0-2) % Lymph # (Auto) 4.6 (1.2-4.9) X10*3/uL [place] # (Auto) 1.0 (0.1-1.2) X10*3/uL Eos # (Auto) 0.1 (0.0-0.4) X10*3/uL Baso # (Auto) 0.0 (0.0-0.2) X10*3/uL Abs Immat Gran (auto) 0.18 H (0.00-0.03) X10*3/uL Absolute Neuts (auto) 6.4 (2.0-8.3) X10*3/uL Absolute Nucleated RBC 0.000 (0.0-0.012) X10*3/uL Nucleated RBC % (auto) 0.0 (0.0-0.2) /100WBC PT 11.3 (10.8-13.0) SEC INR 1.0 (0.9-1.1) APTT 28.0 (24.1-38.0) SEC D-Dimer < 200 NG/ML Sodium 141 (135-145) mmol/L Potassium 4.1 (3.3-5.1) mmol/L Chloride 105 (96-108) mmol/L Carbon Dioxide 27 (22-29) mmol/L Anion Gap 13 (12-20) BUN 10 (9-16) mg/dL Creatinine 0.63 (0.5-1.4) mg/dL Estim Creat Clear Calc 91.9 Estimated GFR > 60 Random Glucose 88 (60-115) mg/dL Calcium 9.0 D (8.4-10.2) mg/dL Magnesium 2.4 (1.6-2.6) mg/dL Ferritin (10-250) ng/mL Total Bilirubin 0.4 (0.0-1.0) mg/dL Direct Bilirubin 0.2 (0.0-0.5) mg/dL AST 12 D (5-31) U/L ALT 24 (0-31) U/L Alkaline Phosphatase 74 (39-117) U/L Lactate Dehydrogenase 163 (122-220) U/L Troponin I High Sens (<3.5-17.0) ng/L C-Reactive Protein 0.18 (< or = 0.50) mg/dL B-Natriuretic Peptide (<100) pg/mL Total Protein 6.5 (6.5-8.0) g/dL Albumin 3.7 (3.5-5.0) g/dL Urine Color Urine Appearance Urine pH (5.0-8.0) Ur Specific Iron (1.005-1.025) Urine Protein (NEG-TRACE) MG/DL Urine Glucose (UA) (NEG) MG/DL Urine Ketones (NEG) MG/DL Urine Blood (NEG) Urine Nitrite (NEG) Ur Leukocyte Esterase (NEG) 12/10/20 12/10/20 12/10/20 Range/Units 09:20 09:20 09:28 WBC (4.8-10.8) X10*3/uL RBC (4.20-5.50) X10*6/uL Hgb (12.0-16.0) g/dl Hct (37-47) % MCV (80-98) fL MCH (27.0-33.0) pg MCHC (31.0-35.0) g/dl RDW (11.0-16.0) % Plt Count (160-400) X10*3/uL MPV (9.4-12.3) fL Immature Gran % (Auto) (0.0-0.4) % Neut % (Auto) (45-73) % Lymph % (Auto) (20-40) % [place] % (Auto) (2-11) % Eos % (Auto) (0-4) % Baso % (Auto) (0-2) % Lymph # (Auto) (1.2-4.9) X10*3/uL [place] # (Auto) (0.1-1.2) X10*3/uL Eos # (Auto) (0.0-0.4) X10*3/uL Baso # (Auto) (0.0-0.2) X10*3/uL Abs Immat Gran (auto) (0.00-0.03) X10*3/uL Absolute Neuts (auto) (2.0-8.3) X10*3/uL Absolute Nucleated RBC (0.0-0.012) X10*3/uL Nucleated RBC % (auto) (0.0-0.2) /100WBC PT (10.8-13.0) SEC INR (0.9-1.1) APTT (24.1-38.0) SEC D-Dimer NG/ML Sodium (135-145) mmol/L Potassium (3.3-5.1) mmol/L Chloride (96-108) mmol/L Carbon Dioxide (22-29) mmol/L Anion Gap (12-20) BUN (9-16) mg/dL Creatinine (0.5-1.4) mg/dL Estim Creat Clear Calc Estimated GFR Random Glucose (60-115) mg/dL Calcium (8.4-10.2) mg/dL Magnesium (1.6-2.6) mg/dL Ferritin 186 (10-250) ng/mL Total Bilirubin (0.0-1.0) mg/dL Direct Bilirubin (0.0-0.5) mg/dL AST (5-31) U/L ALT (0-31) U/L Alkaline Phosphatase (39-117) U/L Lactate Dehydrogenase (122-220) U/L Troponin I High Sens < 3.5 (<3.5-17.0) ng/L C-Reactive Protein (< or = 0.50) mg/dL B-Natriuretic Peptide 14 (<100) pg/mL Total Protein (6.5-8.0) g/dL Albumin (3.5-5.0) g/dL Urine Color YELLOW Urine Appearance HAZY Urine pH 6.0 (5.0-8.0) Ur Specific Iron 1.025 (1.005-1.025) Urine Protein NEG (NEG-TRACE) MG/DL Urine Glucose (UA) NEG (NEG) MG/DL Urine Ketones NEG (NEG) MG/DL Urine Blood NEG (NEG) Urine Nitrite NEG (NEG) Ur Leukocyte Esterase NEG (NEG) ECG Data Attestation: I personally reviewed and interpreted this ECG as follows: ECG interpretation date: 12/10/20 ECG interpretation time: 09:09 Interpretation: EKG normal sinus rhythm, rate of 66. No STEMI, nonischemic Discharge Plan Discharge Clinical Impression: Multiple persistent symptoms after COVID-19 Patient Disposition: Home, Self-Care Instructions: COVID-19 (Coronavirus Disease 2019) (ED) Additional Instructions: Your blood work was reassuring today in the emergency department Her x-ray showed improvement of her COVID-19 pneumonia Your urine was negative It is typical to have multiple/residual persistent symptoms after having COVID-19 infection It is important for you to rest, and stay hydrated Follow-up with her primary care doctor Prescriptions: No Action cyclobenzaprine 5 mg tablet 5 mg PO BEDTIME PRN (Reason: muscle spasm) Qty: 30 RF: 5 cetirizine 10 mg tablet 10 mg PO DAILY PRN (Reason: Allergy Symptoms) RF: 0 simvastatin 40 mg tablet 40 mg PO BEDTIME RF: 0 lidocaine [Lidoderm] 5 % adhesive patch,medicated 1 patch topical DAILY RF: 0 docusate sodium [DOK] 100 mg capsule 100 mg PO BID RF: 0 gabapentin 300 mg capsule 300 mg PO BEDTIME RF: 0 omeprazole 20 mg capsule,delayed release(DR/EC) 20 mg PO BID RF: 0 montelukast 10 mg tablet 10 mg PO BEDTIME RF: 0 ergocalciferol (vitamin D2) 1,250 mcg (50,000 unit) capsule 1,250 mcg PO REAL RF: 0 polyethylene glycol 3350 17 gram/dose powder 17 g PO DAILY RF: 0 fluticasone propionate 50 mcg/actuation spray,suspension 2 spray intranasal DAILY RF: 0 duloxetine 60 mg capsule,delayed release(DR/EC) 60 mg PO DAILY RF: 0 Atrovent HFA 17 mcg/actuation HFA aerosol inhaler 2 puff inhalation QID PRN (Reason: wheezing) RF: 0 diclofenac sodium 1 % gel 2 g topical QID RF: 0 melatonin 5 mg tablet 5 - 10 mg PO BEDTIME PRN (Reason: insomnia) RF: 0 Breo Ellipta 200-25 mcg/dose blister with device 1 puff inhalation DAILY RF: 0 dextromethorphan-guaifenesin 10-100 mg/5 mL Syrup 10 ml PO Q6H Qty: 240 RF: 0 dexamethasone 6 mg tablet 6 mg PO DAILY Qty: 5 RF: 0 Referrals: [facility] [Primary Care Provider] - 2 days
== END 2020-12-10 12:28 | disposition home or self-care (01) ==
PROVIDERS: Physician Assistant; Emergency Provider Emergency Medicine Emergency Medical Services
DX: G93.3 Postviral and related fatigue syndromes (principal); R53.1 Weakness; Z86.16 Personal history of COVID-19; F41.9 Anxiety disorder, unspecified; J45.909 Unspecified asthma, uncomplicated; Z79.899 Other long term (current) drug therapy
CPT/HCPCS: 36415; 71045; 80048; 80076; 81003; 82728; 83615; 83735; 83880; 84484; 85025; 85379; 85610; 85730; 86140; 93005; 96360; 99283; 99284

== ENCOUNTER 2020-12-20 07:53 | Outpatient (REF) | payer MEDICAID, SELFPAY ==
--- NOTE | ~2020-12-20 | XR_ITS ---
EXAMINATION: XR KNEE, LEFT CLINICAL INFORMATION: Left knee pain. COMPARISON: None TECHNIQUE: Four views of the left knee. FINDINGS: Moderate medial tibial femoral compartment joint space narrowing. These approximated. Bone density is preserved. No lytic or blastic osseous lesions. No joint effusion. Normal soft tissues XR/XR knee LT 4V IMPRESSION: Left knee: Left knee arthrosis demonstrated by moderate medial tibiofemoral compartment joint space narrowing.
--- NOTE | ~2020-12-20 | XR_ITS ---
EXAMINATION: XR KNEE, RIGHT CLINICAL INFORMATION: Joint pain. COMPARISON: Right knee radiograph dated 09/29/2007. TECHNIQUE: Four views of the right knee. FINDINGS: Right knee is approximated. There is mild medial tibiofemoral compartment joint space narrowing. Small superior patellar enthesophyte. Small joint effusion. Bone density is preserved. No lytic or blastic osseous lesions. Normal soft tissues. XR/XR knee RT 4V IMPRESSION: Right knee: No fracture or malalignment. Mild medial tibiofemoral compartment joint space narrowing. Small suprapatellar effusion.
== END 2020-12-20 07:54 | disposition home or self-care (01) ==
LOC: HO.XRAY 07:53
PROVIDERS: PCP Registered Nurse; Visit Provider Student in an Organized Health Care Education/Training Program
DX: M25.50 Pain in unspecified joint (principal); M25.562 Pain in left knee; J30.1 Allergic rhinitis due to pollen; J30.2 Other seasonal allergic rhinitis; F41.8 Other specified anxiety disorders; Z79.899 Other long term (current) drug therapy
CPT/HCPCS: 73564; 99212

== ENCOUNTER 2021-05-15 10:50 | Emergency (ER) | payer MEDICAID, SELFPAY ==
--- NOTE | ~2021-05-15 | XR_ITS ---
EXAMINATION: XR CHEST CLINICAL INFORMATION: Shortness of breath COMPARISON: Previous chest x-ray most recent November 2020 TECHNIQUE: Frontal view of the chest was obtained. FINDINGS: The cardiac and mediastinal contours are stable. There is question of bronchial wall thickening or small infiltrate at the right lung base. The lungs are otherwise clear. There is no pleural effusion or pneumothorax. There are degenerative changes of the spine and curvature of the lower thoracic and upper lumbar spine to the right. There are postsurgical changes to the right shoulder. XR/XR chest 1V IMPRESSION: Question bronchial wall thickening or small infiltrate at the right lung base.
--- NOTE | 2021-05-15 11:20 | ED.SOB ---
HPI - SOB/Dyspnea General Chief Complaint: Dyspnea <APOLINAR Navarro - Last Filed: 05/15/21 11:28> Stated Complaint: difficulty breathing <APOLINAR Navarro - Last Filed: 05/15/21 11:28> Time Seen by Provider: 05/15/21 11:20 <APOLINAR Navarro - Last Filed: 05/15/21 11:28> Related Data Home Medications: Home Medications Medication Instructions Recorded Confirmed cetirizine 10 mg tablet 10 mg PO DAILY PRN 11/30/20 12/20/20 diclofenac sodium 1 % topical gel 2 g TOPICAL QID 11/30/20 12/20/20 docusate sodium 100 mg capsule 100 mg PO BID 11/30/20 12/20/20 (DOK) duloxetine 60 mg capsule,delayed 60 mg PO DAILY 11/30/20 12/20/20 release ergocalciferol (vitamin D2) 1,250 1,250 mcg PO REAL 11/30/20 12/20/20 mcg (50,000 unit) capsule fluticasone furoate 200 1 puff INHALATION DAILY 11/30/20 12/20/20 mcg-vilanterol 25 mcg/dose inhalation powder (Breo Ellipta) fluticasone propionate 50 2 spray INTRANASAL DAILY 11/30/20 12/20/20 mcg/actuation nasal spray,suspension ipratropium bromide 17 2 puff INHALATION QID PRN 11/30/20 12/20/20 mcg/actuation HFA aerosol inhaler (Atrovent HFA) lidocaine 5 % topical patch 1 patch TOPICAL DAILY 11/30/20 12/20/20 (Lidoderm) melatonin 5 mg tablet 5 - 10 mg PO BEDTIME PRN 11/30/20 12/20/20 montelukast 10 mg tablet 10 mg PO BEDTIME 11/30/20 12/20/20 omeprazole 20 mg capsule,delayed 20 mg PO BID 11/30/20 12/20/20 release polyethylene glycol 3350 17 17 g PO DAILY 11/30/20 12/20/20 gram/dose oral powder simvastatin 40 mg tablet 40 mg PO BEDTIME 11/30/20 12/20/20 Previous Rx's Medication Instructions Recorded gabapentin 300 mg capsule 300 mg PO BEDTIME #90 cap 12/20/20 naproxen 500 mg tablet 500 mg PO BID PRN #60 tab 12/20/20 cyclobenzaprine 5 mg tablet 5 mg PO BEDTIME PRN #90 tab 02/02/21 codeine 10 mg-guaifenesin 100 mg/5 10 ml PO Q4-6H PRN #237 ml 05/15/21 mL oral liquid prednisone 20 mg tablet 40 mg PO DAILY #10 tab 05/15/21 <APOLINAR Navarro - Last Filed: 05/15/21 11:28> Allergies/Adverse Reactions: Allergies Allergy/AdvReac Type Severity Reaction Status Date / Time pollen extracts [POLLEN] Allergy Unknown RUNNY Verified 12/20/20 08:00 NOSE, ITCHY EYES seasonl allergies Allergy Unknown asthma Uncoded 12/02/20 11:29 attacks <APOLINAR Navarro - Last Filed: 05/15/21 11:28> PMFSH Past Medical History Medical History: Medical History (Updated 05/15/21 @ 15:19 by Jamey Fisher MD) Anxiety Arthritis Asthma Depression Migraine headache <APOLINAR Navarro - Last Filed: 05/15/21 11:28> Surgical History: Surgical History Hx of cholecystectomy Hx of elbow surgery Hx of hysterectomy <APOLINAR Navarro - Last Filed: 05/15/21 11:28> Social History Social History: Social History Household Members: Spouse Housing: House Do you presently have visiting nurse or other home services: No Advance Directives: No service: No Current occupational status: unemployed <APOLINAR Navarro - Last Filed: 05/15/21 11:28> Physical Exam Vital Signs: Vital Signs: Last Vital Signs Temp 97 F 05/15/21 11:25 Pulse 82 05/15/21 11:25 Resp 16 05/15/21 11:25 BP 129/61 05/15/21 11:25 Pulse Ox 98 05/15/21 11:25 Body Mass Index 25.6 <APOLINAR Navarro - Last Filed: 05/15/21 11:28> Vital Signs: Last Vital Signs Temp 97 F 05/15/21 11:25 Pulse 82 05/15/21 11:25 Resp 16 05/15/21 11:25 BP 129/61 05/15/21 11:25 Pulse Ox 98 05/15/21 11:25 Body Mass Index 25.6 <Jamey Fisher MD - Last Filed: 05/15/21 15:38> Course Course Course Narrative: 56-year-old female with a history of asthma who presents with what she states with an asthma attack last night. Cough, no fever. Patient has been using her elbow uteri all inhaler and nebulizer but still feels very short of breath. Patient had COVID pneumonia on October, and has had persistent symptoms of COVID in November. On exam, patient is not hypoxic, not tachycardic, lungs are mildly diminished. No wheezes rales or rhonchi heard Patient has stable vitals, will order labs, chest x-ray, sent patient to wait in the waiting room <APOLINAR Navarro - Last Filed: 05/15/21 11:28> MDM - SOB/Dyspnea Lab Data Result diagrams: : 05/15/21 11:59 05/15/21 11:59 <APOLINAR Navarro - Last Filed: 05/15/21 11:28> Labs: Lab Results 05/15/21 05/15/21 05/15/21 Range/Units 11:59 11:59 11:59 WBC 7.8 (4.8-10.8) X10*3/uL RBC 4.30 (4.20-5.50) X10*6/uL Hgb 12.2 (12.0-16.0) g/dl Hct 36.6 L (37-47) % MCV 85.1 (80-98) fL MCH 28.4 (27.0-33.0) pg MCHC 33.3 (31.0-35.0) g/dl RDW 12.6 (11.0-16.0) % Plt Count 194 D (160-400) X10*3/uL MPV 9.6 (9.4-12.3) fL Immature Gran % (Auto) 0.3 (0.0-0.4) % Neut % (Auto) 60.5 (45-73) % Lymph % (Auto) 32.4 (20-40) % [place] % (Auto) 5.2 (2-11) % Eos % (Auto) 1.0 (0-4) % Baso % (Auto) 0.6 (0-2) % Lymph # (Auto) 2.5 (1.2-4.9) X10*3/uL [place] # (Auto) 0.4 (0.1-1.2) X10*3/uL Eos # (Auto) 0.1 (0.0-0.4) X10*3/uL Baso # (Auto) 0.1 (0.0-0.2) X10*3/uL Abs Immat Gran (auto) 0.02 (0.00-0.03) X10*3/uL Absolute Neuts (auto) 4.7 (2.0-8.3) X10*3/uL Absolute Nucleated RBC 0.000 (0.0-0.012) X10*3/uL Nucleated RBC % (auto) 0.0 (0.0-0.2) /100WBC D-Dimer < 200 NG/ML Sodium 141 (135-145) mmol/L Potassium 3.9 (3.3-5.1) mmol/L Chloride 107 (96-108) mmol/L Carbon Dioxide 27 (22-29) mmol/L Anion Gap 11 L (12-20) BUN 17 H D (9-16) mg/dL Creatinine 0.63 (0.5-1.4) mg/dL Estim Creat Clear Calc 89.3 Estimated GFR > 60 Random Glucose 111 (60-115) mg/dL Calcium 9.0 (8.4-10.2) mg/dL Total Bilirubin 0.5 (0.0-1.0) mg/dL AST 18 D (5-31) U/L ALT 18 (0-31) U/L Alkaline Phosphatase 87 (39-117) U/L Total Protein 6.7 (6.5-8.0) g/dL Albumin 4.1 (3.5-5.0) g/dL <APOLINAR Navarro - Last Filed: 05/15/21 11:28> Lab Results 05/15/21 05/15/21 05/15/21 Range/Units 11:59 11:59 11:59 WBC 7.8 (4.8-10.8) X10*3/uL RBC 4.30 (4.20-5.50) X10*6/uL Hgb 12.2 (12.0-16.0) g/dl Hct 36.6 L (37-47) % MCV 85.1 (80-98) fL MCH 28.4 (27.0-33.0) pg MCHC 33.3 (31.0-35.0) g/dl RDW 12.6 (11.0-16.0) % Plt Count 194 D (160-400) X10*3/uL MPV 9.6 (9.4-12.3) fL Immature Gran % (Auto) 0.3 (0.0-0.4) % Neut % (Auto) 60.5 (45-73) % Lymph % (Auto) 32.4 (20-40) % [place] % (Auto) 5.2 (2-11) % Eos % (Auto) 1.0 (0-4) % Baso % (Auto) 0.6 (0-2) % Lymph # (Auto) 2.5 (1.2-4.9) X10*3/uL [place] # (Auto) 0.4 (0.1-1.2) X10*3/uL Eos # (Auto) 0.1 (0.0-0.4) X10*3/uL Baso # (Auto) 0.1 (0.0-0.2) X10*3/uL Abs Immat Gran (auto) 0.02 (0.00-0.03) X10*3/uL Absolute Neuts (auto) 4.7 (2.0-8.3) X10*3/uL Absolute Nucleated RBC 0.000 (0.0-0.012) X10*3/uL Nucleated RBC % (auto) 0.0 (0.0-0.2) /100WBC D-Dimer < 200 NG/ML Sodium 141 (135-145) mmol/L Potassium 3.9 (3.3-5.1) mmol/L Chloride 107 (96-108) mmol/L Carbon Dioxide 27 (22-29) mmol/L Anion Gap 11 L (12-20) BUN 17 H D (9-16) mg/dL Creatinine 0.63 (0.5-1.4) mg/dL Estim Creat Clear Calc 89.3 Estimated GFR > 60 Random Glucose 111 (60-115) mg/dL Calcium 9.0 (8.4-10.2) mg/dL Total Bilirubin 0.5 (0.0-1.0) mg/dL AST 18 D (5-31) U/L ALT 18 (0-31) U/L Alkaline Phosphatase 87 (39-117) U/L Total Protein 6.7 (6.5-8.0) g/dL Albumin 4.1 (3.5-5.0) g/dL <Jamey Fisher MD - Last Filed: 05/15/21 15:38> Discharge Plan Discharge Clinical Impression: Asthma with exacerbation Qualifiers: Asthma severity: moderate Asthma persistence: persistent Qualified Code(s): J45.41 - Moderate persistent asthma with (acute) exacerbation <APOLINAR Navarro - Last Filed: 05/15/21 11:28> Patient Disposition: Home, Self-Care <APOLINAR Navarro - Last Filed: 05/15/21 11:28> Instructions: Asthma (ED) <APOLINAR Navarro - Last Filed: 05/15/21 11:28> Additional Instructions: Use your inhaler/nebulizer every 4-6 hours for shortness of breath Cough syrup as advised Prednisone as advised Follow with PCP if not better <APOLINAR Navarro - Last Filed: 05/15/21 11:28> Prescriptions: New prednisone 20 mg tablet 40 mg PO DAILY Qty: 10 RF: 0 codeine-guaifenesin 10-100 mg/5 mL liquid 10 ml PO Q4-6H PRN (Reason: cough) Qty: 237 RF: 0 No Action gabapentin 300 mg capsule 300 mg PO BEDTIME Qty: 90 RF: 1 cyclobenzaprine 5 mg tablet 5 mg PO BEDTIME PRN (Reason: for muscle spasm) Qty: 90 RF: 1 cetirizine 10 mg tablet 10 mg PO DAILY PRN (Reason: Allergy Symptoms) RF: 0 simvastatin 40 mg tablet 40 mg PO BEDTIME RF: 0 lidocaine [Lidoderm] 5 % adhesive patch,medicated 1 patch topical DAILY RF: 0 docusate sodium [DOK] 100 mg capsule 100 mg PO BID RF: 0 omeprazole 20 mg capsule,delayed release(DR/EC) 20 mg PO BID RF: 0 montelukast 10 mg tablet 10 mg PO BEDTIME RF: 0 ergocalciferol (vitamin D2) 1,250 mcg (50,000 unit) capsule 1,250 mcg PO REAL RF: 0 polyethylene glycol 3350 17 gram/dose powder 17 g PO DAILY RF: 0 fluticasone propionate 50 mcg/actuation spray,suspension 2 spray intranasal DAILY RF: 0 duloxetine 60 mg capsule,delayed release(DR/EC) 60 mg PO DAILY RF: 0 Atrovent HFA 17 mcg/actuation HFA aerosol inhaler 2 puff inhalation QID PRN (Reason: wheezing) RF: 0 diclofenac sodium 1 % gel 2 g topical QID RF: 0 melatonin 5 mg tablet 5 - 10 mg PO BEDTIME PRN (Reason: insomnia) RF: 0 Breo Ellipta 200-25 mcg/dose blister with device 1 puff inhalation DAILY RF: 0 naproxen 500 mg tablet 500 mg PO BID PRN (Reason: pain) Qty: 60 RF: 1 <APOLINAR Navarro - Last Filed: 05/15/21 11:28>
[2021-05-15 11:25] VITALS: BP 129/61; PULSE 82; RESP 16; TEMP 36.1; O2SAT 98; BMI 25.6
[2021-05-15 12:05] LABS: MANUAL DIFF FLAG NO
[2021-05-15 12:11] LABS: Basophils Absolute Auto 0.1 X10*3/uL (0.0-0.2); Basophils Percent Auto 0.6 % (0-2); Eosinophils Absolute Auto 0.1 X10*3/uL (0.0-0.4); Hematocrit 36.6 % (37-47); Hemoglobin 12.2 g/dl (12.0-16.0); Imm Gran Abs Auto 0.02 X10*3/uL (0.00-0.03); Imm Gran Pct Auto 0.3 % (0.0-0.4); Lymphocytes Absolute Auto 2.5 X10*3/uL (1.2-4.9); Lymphocytes Percent Auto 32.4 % (20-40); Mean Corpuscular HGB Conc 33.3 g/dl (31.0-35.0); Mean Corpuscular Hemoglobin 28.4 pg (27.0-33.0); Mean Corpuscular Volume 85.1 fL (80-98); Mean Platelet Volume 9.6 fL (9.4-12.3); Monocytes Absolute Auto 0.4 X10*3/uL (0.1-1.2); Monocytes Percent Auto 5.2 % (2-11); Neutrophils Absolute Auto 4.7 X10*3/uL (2.0-8.3); Neutrophils Percent Auto 60.5 % (45-73); Platelet Count 194 X10*3/uL (160-400); Red Cell Distribution Width 12.6 % (11.0-16.0); White Blood Count 7.8 X10*3/uL (4.8-10.8)
[2021-05-15 12:21] LABS: Alanine Aminotransferase 18 U/L (0-31); Albumin Level 4.1 g/dL (3.5-5.0); Alkaline Phosphatase 87 U/L (39-117); Anion Gap 11 (12-20); Aspartate Amino Transferase 18 U/L (5-31); Bilirubin Total 0.5 mg/dL (0.0-1.0); Blood Urea Nitrogen 17 mg/dL (9-16); Carbon Dioxide 27 mmol/L (22-29); Chloride 107 mmol/L (96-108); Creatinine Clr Calc Pharmacy 89.3; Estimated Glomerular Filt Rate > 60; Glucose Random 111 mg/dL (60-115); Potassium 3.9 mmol/L (3.3-5.1); Sodium 141 mmol/L (135-145); Total Protein 6.7 g/dL (6.5-8.0)
[2021-05-15 12:24] LABS: D Dimer < 200 NG/ML
--- NOTE | 2021-05-15 13:08 | ED.SOB ---
HPI - SOB/Dyspnea General Chief Complaint: Dyspnea Stated Complaint: difficulty breathing Time Seen by Provider: 05/15/21 11:20 Source: patient Mode of arrival: ambulatory Limitations: no limitations History of Present Illness HPI Narrative: 58 year old female coming from home come in with concerns of shortness of breath and dizziness. Past medical history is significant for asthma, that has never required intubation. She states last night she became very short of breath while showering and since then it has been progressively worsening. She states she feels like she cant take a deep breath in and feels tightness around her torso. She also states that she feels intermittently dizzy, describes it as the room is moving side to side. She used her inhaler and her nebulizer at home with little relief. She is not a smoker and has never smoked. She has been vaccinated. Patient complaining of bilateral lower rib pain with deep inspiration She denies weakness, fevers, chills, nausea, vomiting and diarrhea MD elicited complaint: shortness of breath Pertinent past history: asthma Onset (ago): day(s) (last night ) Timing: constant Severity: mild Exacerbating factors: exertion, movement, inspiration and deep breaths Relieving factors: rest Known history of: asthma Associated symptoms: pain with inspiration (pain and pressure ) Treatment prior to arrival: bronchodilator Related Data Home oxygen amount: none Home Medications Medication Instructions Recorded Confirmed cetirizine 10 mg tablet 10 mg PO DAILY PRN 11/30/20 12/20/20 diclofenac sodium 1 % topical gel 2 g TOPICAL QID 11/30/20 12/20/20 docusate sodium 100 mg capsule 100 mg PO BID 11/30/20 12/20/20 (DOK) duloxetine 60 mg capsule,delayed 60 mg PO DAILY 11/30/20 12/20/20 release ergocalciferol (vitamin D2) 1,250 1,250 mcg PO REAL 11/30/20 12/20/20 mcg (50,000 unit) capsule fluticasone furoate 200 1 puff INHALATION DAILY 11/30/20 12/20/20 mcg-vilanterol 25 mcg/dose inhalation powder (Breo Ellipta) fluticasone propionate 50 2 spray INTRANASAL DAILY 11/30/20 12/20/20 mcg/actuation nasal spray,suspension ipratropium bromide 17 2 puff INHALATION QID PRN 11/30/20 12/20/20 mcg/actuation HFA aerosol inhaler (Atrovent HFA) lidocaine 5 % topical patch 1 patch TOPICAL DAILY 11/30/20 12/20/20 (Lidoderm) melatonin 5 mg tablet 5 - 10 mg PO BEDTIME PRN 11/30/20 12/20/20 montelukast 10 mg tablet 10 mg PO BEDTIME 11/30/20 12/20/20 omeprazole 20 mg capsule,delayed 20 mg PO BID 11/30/20 12/20/20 release polyethylene glycol 3350 17 17 g PO DAILY 11/30/20 12/20/20 gram/dose oral powder simvastatin 40 mg tablet 40 mg PO BEDTIME 11/30/20 12/20/20 Previous Rx's Medication Instructions Recorded gabapentin 300 mg capsule 300 mg PO BEDTIME #90 cap 12/20/20 naproxen 500 mg tablet 500 mg PO BID PRN #60 tab 12/20/20 cyclobenzaprine 5 mg tablet 5 mg PO BEDTIME PRN #90 tab 02/02/21 codeine 10 mg-guaifenesin 100 mg/5 10 ml PO Q4-6H PRN #237 ml 05/15/21 mL oral liquid prednisone 20 mg tablet 40 mg PO DAILY #10 tab 05/15/21 Allergies Allergy/AdvReac Type Severity Reaction Status Date / Time pollen extracts [POLLEN] Allergy Unknown RUNNY Verified 12/20/20 08:00 NOSE, ITCHY EYES seasonl allergies Allergy Unknown asthma Uncoded 12/02/20 11:29 attacks Review of Systems Constitutional: Constitutional: Reports other (dizziness ) Eyes: Eyes: Reports no additional eye complaints ENT: Reports system reviewed and no additional complaints, except as documented and Reports dizziness Cardiovascular: Cardiovascular: Reports no additional cardiovascular complaints, Reports dyspnea and Reports dyspnea on exertion Respiratory: Respiratory: Reports dyspnea and Reports dyspnea on exertion Gastrointestinal: Gastrointestinal: Reports no additional gastrointestinal complaints Genitourinary: Genitourinary: Reports no additional female genitourinary complaints Musculoskeletal: Musculoskeletal: Reports no additional musculoskeletal complaints Neurologic: Reports dizziness PMFSH Past Medical History Medical History (Updated 05/15/21 @ 15:19 by Jamey Fisher MD) Anxiety Arthritis Asthma Depression Migraine headache Surgical History Hx of cholecystectomy Hx of elbow surgery Hx of hysterectomy Social History Social History Household Members: Spouse Housing: House Do you presently have visiting nurse or other home services: No Advance Directives: No service: No Current occupational status: unemployed Physical Exam Vital Signs: Vital Signs: Last Vital Signs Temp 97 F 05/15/21 11:25 Pulse 82 05/15/21 11:25 Resp 16 05/15/21 11:25 BP 129/61 05/15/21 11:25 Pulse Ox 98 05/15/21 11:25 Body Mass Index 25.6 Const: General: cooperative, comfortable, no acute distress, alert and awake Orientation/consciousness: patient oriented x3 Chest: Chest palpation & inspection: normal inspection of the chest and normal palpation of entire chest wall Resp: Effort & Inspection: able to speak in complete sentences Auscultation: abnormal I/E ratio and diminished lung sounds Cardio: Rate: regular rate Rhythm: regular rhythm Heart sounds: S1 normal heart sound present and S2 normal heart sound present Peripheral pulses: Peripheral pulses 2+ throughout GI: Inspection: Yes normal to inspection Auscultation: normal bowel sounds Skin: General skin exam: no rashes or lesions noted Neuro: General: patient oriented x3 Gait exam (Neuro): Normal gait present Motor exam (neuro): 5/5 motor strength present throughout Extrem: General: Yes normal to inspection, Yes full ROM and Yes no pedal edema MDM - SOB/Dyspnea MDM Narrative Medical decision making narrative: Previous asthma saturating 98% chest x-ray negative lab workup negative D-dimer negative patient feeling better after nebulizing treatment will discharge patient home on prednisone and to continue nebulizer treatment Differential Diagnosis Differential diagnosis: Likely asthma with exacerbation Lab Data Attestation: I reviewed the patient's lab results. Result diagrams: 05/15/21 11:59 05/15/21 11:59 Labs: Lab Results 05/15/21 05/15/21 05/15/21 Range/Units 11:59 11:59 11:59 WBC 7.8 (4.8-10.8) X10*3/uL RBC 4.30 (4.20-5.50) X10*6/uL Hgb 12.2 (12.0-16.0) g/dl Hct 36.6 L (37-47) % MCV 85.1 (80-98) fL MCH 28.4 (27.0-33.0) pg MCHC 33.3 (31.0-35.0) g/dl RDW 12.6 (11.0-16.0) % Plt Count 194 D (160-400) X10*3/uL MPV 9.6 (9.4-12.3) fL Immature Gran % (Auto) 0.3 (0.0-0.4) % Neut % (Auto) 60.5 (45-73) % Lymph % (Auto) 32.4 (20-40) % [place] % (Auto) 5.2 (2-11) % Eos % (Auto) 1.0 (0-4) % Baso % (Auto) 0.6 (0-2) % Lymph # (Auto) 2.5 (1.2-4.9) X10*3/uL [place] # (Auto) 0.4 (0.1-1.2) X10*3/uL Eos # (Auto) 0.1 (0.0-0.4) X10*3/uL Baso # (Auto) 0.1 (0.0-0.2) X10*3/uL Abs Immat Gran (auto) 0.02 (0.00-0.03) X10*3/uL Absolute Neuts (auto) 4.7 (2.0-8.3) X10*3/uL Absolute Nucleated RBC 0.000 (0.0-0.012) X10*3/uL Nucleated RBC % (auto) 0.0 (0.0-0.2) /100WBC D-Dimer < 200 NG/ML Sodium 141 (135-145) mmol/L Potassium 3.9 (3.3-5.1) mmol/L Chloride 107 (96-108) mmol/L Carbon Dioxide 27 (22-29) mmol/L Anion Gap 11 L (12-20) BUN 17 H D (9-16) mg/dL Creatinine 0.63 (0.5-1.4) mg/dL Estim Creat Clear Calc 89.3 Estimated GFR > 60 Random Glucose 111 (60-115) mg/dL Calcium 9.0 (8.4-10.2) mg/dL Total Bilirubin 0.5 (0.0-1.0) mg/dL AST 18 D (5-31) U/L ALT 18 (0-31) U/L Alkaline Phosphatase 87 (39-117) U/L Total Protein 6.7 (6.5-8.0) g/dL Albumin 4.1 (3.5-5.0) g/dL Discharge Plan Discharge Clinical Impression: Asthma with exacerbation Qualifiers: Asthma severity: moderate Asthma persistence: persistent Qualified Code(s): J45.41 - Moderate persistent asthma with (acute) exacerbation Patient Disposition: Home, Self-Care Instructions: Asthma (ED) Additional Instructions: Use your inhaler/nebulizer every 4-6 hours for shortness of breath Cough syrup as advised Prednisone as advised Follow with PCP if not better Prescriptions: New prednisone 20 mg tablet 40 mg PO DAILY Qty: 10 RF: 0 codeine-guaifenesin 10-100 mg/5 mL liquid 10 ml PO Q4-6H PRN (Reason: cough) Qty: 237 RF: 0 No Action gabapentin 300 mg capsule 300 mg PO BEDTIME Qty: 90 RF: 1 cyclobenzaprine 5 mg tablet 5 mg PO BEDTIME PRN (Reason: for muscle spasm) Qty: 90 RF: 1 cetirizine 10 mg tablet 10 mg PO DAILY PRN (Reason: Allergy Symptoms) RF: 0 simvastatin 40 mg tablet 40 mg PO BEDTIME RF: 0 lidocaine [Lidoderm] 5 % adhesive patch,medicated 1 patch topical DAILY RF: 0 docusate sodium [DOK] 100 mg capsule 100 mg PO BID RF: 0 omeprazole 20 mg capsule,delayed release(DR/EC) 20 mg PO BID RF: 0 montelukast 10 mg tablet 10 mg PO BEDTIME RF: 0 ergocalciferol (vitamin D2) 1,250 mcg (50,000 unit) capsule 1,250 mcg PO REAL RF: 0 polyethylene glycol 3350 17 gram/dose powder 17 g PO DAILY RF: 0 fluticasone propionate 50 mcg/actuation spray,suspension 2 spray intranasal DAILY RF: 0 duloxetine 60 mg capsule,delayed release(DR/EC) 60 mg PO DAILY RF: 0 Atrovent HFA 17 mcg/actuation HFA aerosol inhaler 2 puff inhalation QID PRN (Reason: wheezing) RF: 0 diclofenac sodium 1 % gel 2 g topical QID RF: 0 melatonin 5 mg tablet 5 - 10 mg PO BEDTIME PRN (Reason: insomnia) RF: 0 Breo Ellipta 200-25 mcg/dose blister with device 1 puff inhalation DAILY RF: 0 naproxen 500 mg tablet 500 mg PO BID PRN (Reason: pain) Qty: 60 RF: 1
--- NOTE | 2021-05-15 14:07 | PC.NURSE ---
RT CALLED TO GIVE TREATMENTS
[2021-05-15] MEDS: Albuterol Sulfate (0.083%) 2.5 MG/3 ML VIAL.NEB 5 MG INHALE (14:16)
[2021-05-15 14:17] VITALS: O2SAT 97
[2021-05-15] MEDS: Albuterol/Iprat 2.5/0.5MG 3 ML AMPUL.NEB INHALE (14:17)
[2021-05-15] MEDS: oxyCODONE HCl Immed Release 5 MG TABLET 10 MG PO (15:15)
[2021-05-15] MEDS: predniSONE 20 MG TABLET 40 MG PO (15:15)
== END 2021-05-15 15:49 | disposition home or self-care (01) ==
PROVIDERS: Physician Assistant; Emergency Provider Internal Medicine; PCP Registered Nurse
DX: J45.41 Moderate persistent asthma with (acute) exacerbation (principal); R06.00 Dyspnea, unspecified; R06.02 Shortness of breath; R42 Dizziness and giddiness; Z79.899 Other long term (current) drug therapy
CPT/HCPCS: 36415; 71045; 80053; 85025; 85379; 94640; 94644; 99283; 99284

== ENCOUNTER 2021-05-17 12:35 | Emergency (ER) | payer MEDICAID, SELFPAY ==
--- NOTE | ~2021-05-17 | XR_ITS ---
EXAMINATION: XR CHEST CLINICAL INFORMATION: Dyspnea COMPARISON: Chest 05/15/2021 TECHNIQUE: Frontal view of the chest was obtained. FINDINGS: The lungs are well-expanded with patchy opacity left lung base retrocardiac area, slightly progressed since 05/15/2021. Rest of lungs are clear. Heart size and pulmonary vascularity is normal. There is mild scoliosis of dorsolumbar spine. No lytic process. XR/XR chest 1V IMPRESSION: Likely left lower lobe infiltrate, slightly progressed since 05/15/2021 exam.
[2021-05-17 12:36] VITALS: PULSE 77; RESP 22; TEMP 36.1; O2SAT 97; BMI 26.6
--- NOTE | 2021-05-17 12:58 | ED_ITS ---
HPI - Asthma General Chief Complaint: Upper Respiratory Symptoms Stated Complaint: asthma Time Seen by Provider: 05/17/21 12:55 Source: patient, old records reviewed and caser Mode of arrival: ambulatory Limitations: no limitations History of Present Illness HPI Narrative: seen 2 days ago started on steroids, neg ddimer at that time MD complaint: asthma attack , shortness of breath and wheezing Onset (ago): day(s) (3) Severity: moderate and similar to prior Context: recent URI Associated symptoms: none Asthma History: childhood onset Treatments Prior to Arrival: inhaled bronchodilator and other (oral steroids) Related Data Home Medications Medication Instructions Recorded Confirmed cetirizine 10 mg tablet 10 mg PO DAILY PRN 11/30/20 12/20/20 diclofenac sodium 1 % topical gel 2 g TOPICAL QID 11/30/20 12/20/20 docusate sodium 100 mg capsule 100 mg PO BID 11/30/20 12/20/20 (DOK) duloxetine 60 mg capsule,delayed 60 mg PO DAILY 11/30/20 12/20/20 release ergocalciferol (vitamin D2) 1,250 1,250 mcg PO REAL 11/30/20 12/20/20 mcg (50,000 unit) capsule fluticasone furoate 200 1 puff INHALATION DAILY 11/30/20 12/20/20 mcg-vilanterol 25 mcg/dose inhalation powder (Breo Ellipta) fluticasone propionate 50 2 spray INTRANASAL DAILY 11/30/20 12/20/20 mcg/actuation nasal spray,suspension ipratropium bromide 17 2 puff INHALATION QID PRN 11/30/20 12/20/20 mcg/actuation HFA aerosol inhaler (Atrovent HFA) lidocaine 5 % topical patch 1 patch TOPICAL DAILY 11/30/20 12/20/20 (Lidoderm) melatonin 5 mg tablet 5 - 10 mg PO BEDTIME PRN 11/30/20 12/20/20 montelukast 10 mg tablet 10 mg PO BEDTIME 11/30/20 12/20/20 omeprazole 20 mg capsule,delayed 20 mg PO BID 11/30/20 12/20/20 release polyethylene glycol 3350 17 17 g PO DAILY 11/30/20 12/20/20 gram/dose oral powder simvastatin 40 mg tablet 40 mg PO BEDTIME 04/01/21 04/21/21 Previous Rx's Medication Instructions Recorded gabapentin 300 mg capsule 300 mg PO BEDTIME #90 cap 12/20/20 naproxen 500 mg tablet 500 mg PO BID PRN #60 tab 12/20/20 cyclobenzaprine 5 mg tablet 5 mg PO BEDTIME PRN #90 tab 02/02/21 codeine 10 mg-guaifenesin 100 mg/5 10 ml PO Q4-6H PRN #237 ml 05/15/21 mL oral liquid prednisone 20 mg tablet 40 mg PO DAILY #10 tab 05/15/21 doxycycline hyclate 100 mg capsule 100 mg PO BID 7 Days #14 cap 05/17/21 Allergies Allergy/AdvReac Type Severity Reaction Status Date / Time pollen extracts [POLLEN] Allergy Unknown RUNNY Verified 12/20/20 08:00 NOSE, ITCHY EYES seasonl allergies Allergy Unknown asthma Uncoded 12/02/20 11:29 attacks Review of Systems Review of Systems: Constitutional : No Fever, No Chills ENT/Mouth : No Hoarseness, No sore throat, No Rhinorrhea Eyes: No Redness, No Discharge, No Vision Changes Cardiovascular : No Chest Pain, positive SOB, positive Dyspnea on Exertion, No Edema Respiratory : positive Cough, No Sputum, positive Wheezing, Gastrointestinal : No Nausea, No Vomiting, No Diarrhea, No abdominal Pain Genitourinary : No Dysuria, No Hematuria Musculoskeletal : No joint pain, No Myalgias Skin : No rash Neuro : No Weakness, No Numbness, No Headache Psych : No anxiety, depression Heme/Lymph: No Bruising, No Bleeding Endocrine : No Polyuria, No Polydipsia All other systems reviewed and are negative [facility] Past Medical History Attestation statement: The following information was validated with the patient. Medical History Anxiety Arthritis Asthma Depression Migraine headache Surgical History Hx of cholecystectomy Hx of elbow surgery Hx of hysterectomy Social History Social History (Updated 05/17/21 @ 13:08 by Kelley Luu DO) Household Members: Spouse Housing: House Do you presently have visiting nurse or other home services: No Alcohol intake: never Patient Tobacco Use Status: Never used Tobacco Use of substances other than those prescribed or required for medical reasons: No Advance Directives: No service: No Current occupational status: unemployed Physical Exam Vital Signs: Vital Signs: Last Vital Signs Temp 97.9 F 05/17/21 13:59 Pulse 96 05/17/21 13:59 Resp 18 05/17/21 13:59 BP 125/73 05/17/21 13:59 Pulse Ox 96 05/17/21 14:03 Body Mass Index 26.6 Appearance: Alert. Oriented X3. No acute distress. Eyes: Pupils equal, round and reactive to light. ENT: Pharynx normal. Neck: Normal inspection. Neck supple. CVS: Normal heart rate and rhythm. Pulses normal. Respiratory: No respiratory distress. Breath sounds diminished throughout Abdomen: Soft and nontender. Skin: Skin warm and dry. Normal skin color. Normal skin turgor. Extremities: No lower extremity edema. No calf ttp Neuro: Oriented X 3. No motor deficit. No sensory deficit. Course Course Course Narrative: 95% on RA, lungs clear will start on doxycycline for pneumonia not toxic no resp distress can be treated at home MDM - Asthma MDM Narrative Medical decision making narrative: 56 yo female with asthma here with dyspnea, cough worse at night, chest pressure for the last 3 days with cough - at this time had negative ddimer with symptoms will obtain CXR, EKG, troponin x 1, she is not hypoxic or in resp distress - albuterol 5mg magnesium and anti tussive dispo per results and findings Lab Data Result diagrams: 05/17/21 13:21 05/17/21 13:21 Labs: Lab Results 05/17/21 05/17/21 05/17/21 Range/Units 13:21 13:21 13:21 WBC 13.3 H (4.8-10.8) X10*3/uL RBC 4.37 (4.20-5.50) X10*6/uL Hgb 12.3 (12.0-16.0) g/dl Hct 37.3 (37-47) % MCV 85.4 (80-98) fL MCH 28.1 (27.0-33.0) pg MCHC 33.0 (31.0-35.0) g/dl RDW 13.0 (11.0-16.0) % Plt Count 230 (160-400) X10*3/uL MPV 9.7 (9.4-12.3) fL Immature Gran % (Auto) 0.5 H (0.0-0.4) % Neut % (Auto) 81.3 H (45-73) % Lymph % (Auto) 14.6 L (20-40) % [place] % (Auto) 3.0 (2-11) % Eos % (Auto) 0.2 (0-4) % Baso % (Auto) 0.4 (0-2) % Lymph # (Auto) 1.9 (1.2-4.9) X10*3/uL [place] # (Auto) 0.4 (0.1-1.2) X10*3/uL Eos # (Auto) 0.0 (0.0-0.4) X10*3/uL Baso # (Auto) 0.1 (0.0-0.2) X10*3/uL Abs Immat Gran (auto) 0.06 H (0.00-0.03) X10*3/uL Absolute Neuts (auto) 10.8 H (2.0-8.3) X10*3/uL Absolute Nucleated RBC 0.000 (0.0-0.012) X10*3/uL Nucleated RBC % (auto) 0.0 (0.0-0.2) /100WBC Sodium 140 (135-145) mmol/L Potassium 3.8 (3.3-5.1) mmol/L Chloride 107 (96-108) mmol/L Carbon Dioxide 26 (22-29) mmol/L Anion Gap 11 L (12-20) BUN 15 (9-16) mg/dL Creatinine 0.63 (0.5-1.4) mg/dL Estim Creat Clear Calc 91.1 Estimated GFR > 60 Random Glucose 113 (60-115) mg/dL Calcium 9.5 (8.4-10.2) mg/dL Magnesium 2.1 (1.6-2.6) mg/dL Total Bilirubin 0.5 (0.0-1.0) mg/dL Direct Bilirubin 0.2 (0.0-0.5) mg/dL AST 15 (5-31) U/L ALT 17 (0-31) U/L Alkaline Phosphatase 86 (39-117) U/L Troponin I High Sens < 3.5 (<3.5-17.0) ng/L B-Natriuretic Peptide 78 (<100) pg/mL Total Protein 7.0 (6.5-8.0) g/dL Albumin 4.3 (3.5-5.0) g/dL COVID-19 ([facility]) (Negative) COVID-19 Clin Com 05/17/21 Range/Units 13:21 WBC (4.8-10.8) X10*3/uL RBC (4.20-5.50) X10*6/uL Hgb (12.0-16.0) g/dl Hct (37-47) % MCV (80-98) fL MCH (27.0-33.0) pg MCHC (31.0-35.0) g/dl RDW (11.0-16.0) % Plt Count (160-400) X10*3/uL MPV (9.4-12.3) fL Immature Gran % (Auto) (0.0-0.4) % Neut % (Auto) (45-73) % Lymph % (Auto) (20-40) % [place] % (Auto) (2-11) % Eos % (Auto) (0-4) % Baso % (Auto) (0-2) % Lymph # (Auto) (1.2-4.9) X10*3/uL [place] # (Auto) (0.1-1.2) X10*3/uL Eos # (Auto) (0.0-0.4) X10*3/uL Baso # (Auto) (0.0-0.2) X10*3/uL Abs Immat Gran (auto) (0.00-0.03) X10*3/uL Absolute Neuts (auto) (2.0-8.3) X10*3/uL Absolute Nucleated RBC (0.0-0.012) X10*3/uL Nucleated RBC % (auto) (0.0-0.2) /100WBC Sodium (135-145) mmol/L Potassium (3.3-5.1) mmol/L Chloride (96-108) mmol/L Carbon Dioxide (22-29) mmol/L Anion Gap (12-20) BUN (9-16) mg/dL Creatinine (0.5-1.4) mg/dL Estim Creat Clear Calc Estimated GFR Random Glucose (60-115) mg/dL Calcium (8.4-10.2) mg/dL Magnesium (1.6-2.6) mg/dL Total Bilirubin (0.0-1.0) mg/dL Direct Bilirubin (0.0-0.5) mg/dL AST (5-31) U/L ALT (0-31) U/L Alkaline Phosphatase (39-117) U/L Troponin I High Sens (<3.5-17.0) ng/L B-Natriuretic Peptide (<100) pg/mL Total Protein (6.5-8.0) g/dL Albumin (3.5-5.0) g/dL COVID-19 ([facility]) Negative (Negative) COVID-19 Clin Com See Note ECG Data Attestation: I personally reviewed and interpreted this ECG as follows: ECG interpretation date: 05/17/21 ECG interpretation time: 13:33 Interpretation: Rate: 57 Rhythm: sinus bradycardia [place]: normal Normal P waves. Normal [place]. Normal QRS complex. ST T wave : normal no MIRNA qTC: normal prior studies: no acute ischemia The study has been interpreted contemporaneously by me. . Discharge Plan Discharge Clinical Impression: Asthma Qualifiers: Asthma severity: moderate Asthma persistence: persistent Asthma complication type: with acute exacerbation Qualified Code(s): J45.41 - Moderate persistent asthma with (acute) exacerbation Pneumonia Qualifiers: Pneumonia type: due to unspecified organism Laterality: left Lung location: lower lobe of lung Qualified Code(s): J18.9 - Pneumonia, unspecified organism Patient Disposition: Home, Self-Care Instructions: Asthma (ED), Pneumonia (ED) Additional Instructions: return to ED for any worsening symptoms or concerns continue steroids, take antibiotics with a full meal and glass of water Prescriptions: New doxycycline hyclate 100 mg capsule 100 mg PO BID 7 Days Qty: 14 RF: 0 No Action gabapentin 300 mg capsule 300 mg PO BEDTIME Qty: 90 RF: 1 cyclobenzaprine 5 mg tablet 5 mg PO BEDTIME PRN (Reason: for muscle spasm) Qty: 90 RF: 1 cetirizine 10 mg tablet 10 mg PO DAILY PRN (Reason: Allergy Symptoms) RF: 0 simvastatin 40 mg tablet 40 mg PO BEDTIME RF: 0 lidocaine [Lidoderm] 5 % adhesive patch,medicated 1 patch topical DAILY RF: 0 docusate sodium [DOK] 100 mg capsule 100 mg PO BID RF: 0 omeprazole 20 mg capsule,delayed release(DR/EC) 20 mg PO BID RF: 0 montelukast 10 mg tablet 10 mg PO BEDTIME RF: 0 ergocalciferol (vitamin D2) 1,250 mcg (50,000 unit) capsule 1,250 mcg PO REAL RF: 0 polyethylene glycol 3350 17 gram/dose powder 17 g PO DAILY RF: 0 fluticasone propionate 50 mcg/actuation spray,suspension 2 spray intranasal DAILY RF: 0 duloxetine 60 mg capsule,delayed release(DR/EC) 60 mg PO DAILY RF: 0 Atrovent HFA 17 mcg/actuation HFA aerosol inhaler 2 puff inhalation QID PRN (Reason: wheezing) RF: 0 diclofenac sodium 1 % gel 2 g topical QID RF: 0 melatonin 5 mg tablet 5 - 10 mg PO BEDTIME PRN (Reason: insomnia) RF: 0 Breo Ellipta 200-25 mcg/dose blister with device 1 puff inhalation DAILY RF: 0 prednisone 20 mg tablet 40 mg PO DAILY Qty: 10 RF: 0 codeine-guaifenesin 10-100 mg/5 mL liquid 10 ml PO Q4-6H PRN (Reason: cough) Qty: 237 RF: 0 naproxen 500 mg tablet 500 mg PO BID PRN (Reason: pain) Qty: 60 RF: 1 Referrals: [facility] [Primary Care Provider] - 2 days (if not better)
--- NOTE | 2021-05-17 13:05 | ECG_ITS ---
Test Reason : CHEST PAIN Blood Pressure : / mmHG Vent. Rate : 057 BPM Atrial Rate : 057 BPM P-R Int : 138 ms QRS Dur : 086 ms QT Int : 418 ms P-R-T Axes : 051 022 047 degrees QTc Int : 406 ms Sinus bradycardia Cannot rule out Anterior infarct , age undetermined Abnormal ECG When compared with ECG of 10-DEC-2020 09:09, No significant change was found Referred By: Kelley Luu Electronically Signed By:TAYA CORONA
[2021-05-17 13:22] VITALS: PULSE 66; O2SAT 95
[2021-05-17] MEDS: Albuterol Sulfate (0.083%) 2.5 MG/3 ML VIAL.NEB 5 MG INHALE (13:22)
[2021-05-17 13:28] LABS: MANUAL DIFF FLAG NO
[2021-05-17] MEDS: HYDROcodone/Homat 5/1.5/5 ML 5 ML SYRUP PO (13:28)
[2021-05-17] MEDS: Magnesium Sulfate/H2O 2 GM/50 ML PIGGYBACK IV (13:29)
[2021-05-17 13:30] LABS: Basophils Absolute Auto 0.1 X10*3/uL (0.0-0.2); Basophils Percent Auto 0.4 % (0-2); Eosinophils Percent Auto 0.2 % (0-4); Hematocrit 37.3 % (37-47); Hemoglobin 12.3 g/dl (12.0-16.0); Imm Gran Abs Auto 0.06 X10*3/uL (0.00-0.03); Imm Gran Pct Auto 0.5 % (0.0-0.4); Lymphocytes Absolute Auto 1.9 X10*3/uL (1.2-4.9); Lymphocytes Percent Auto 14.6 % (20-40); Mean Corpuscular Hemoglobin 28.1 pg (27.0-33.0); Mean Corpuscular Volume 85.4 fL (80-98); Mean Platelet Volume 9.7 fL (9.4-12.3); Monocytes Absolute Auto 0.4 X10*3/uL (0.1-1.2); Neutrophils Absolute Auto 10.8 X10*3/uL (2.0-8.3); Neutrophils Percent Auto 81.3 % (45-73); Platelet Count 230 X10*3/uL (160-400); Red Blood Count 4.37 X10*6/uL (4.20-5.50); White Blood Count 13.3 X10*3/uL (4.8-10.8)
--- NOTE | 2021-05-17 13:40 | PC.NURSE ---
patient a&ox3, iv inserted, labs drawn, covid obtained, ekg performed, desk monitor applied, RT at bedside, will continue to monitor.
[2021-05-17 13:50] LABS: Alanine Aminotransferase 17 U/L (0-31); Albumin Level 4.3 g/dL (3.5-5.0); Alkaline Phosphatase 86 U/L (39-117); Anion Gap 11 (12-20); Aspartate Amino Transferase 15 U/L (5-31); Bilirubin Direct 0.2 mg/dL (0.0-0.5); Bilirubin Total 0.5 mg/dL (0.0-1.0); Blood Urea Nitrogen 15 mg/dL (9-16); Calcium 9.5 mg/dL (8.4-10.2); Carbon Dioxide 26 mmol/L (22-29); Chloride 107 mmol/L (96-108); Creatinine Clr Calc Pharmacy 91.1; Estimated Glomerular Filt Rate > 60; Glucose Random 113 mg/dL (60-115); Magnesium 2.1 mg/dL (1.6-2.6); Potassium 3.8 mmol/L (3.3-5.1); Sodium 140 mmol/L (135-145)
[2021-05-17 13:54] LABS: B Type Natriuretic Peptide 78 pg/mL (<100)
[2021-05-17 13:57] LABS: COVID-19 Test Negative (Negative); IDNOW Serial# 08D9AD1C
[2021-05-17 13:59] VITALS: BP 125/73; PULSE 96; RESP 18; TEMP 36.6; O2SAT 96
[2021-05-17 14:02] VITALS: PULSE 96
[2021-05-17 14:03] VITALS: O2SAT 96
--- NOTE | 2021-05-17 14:05 | PC.NURSE ---
patient a&o, c/o 6/10 chest pressure, monitoring coordinator sinus 90s, vss, will continue to monitor.
[2021-05-17 14:10] LABS: Troponin-I High Sensitivity < 3.5 ng/L (<3.5-17.0)
== END 2021-05-17 14:50 | disposition home or self-care (01) ==
PROVIDERS: Emergency Provider Emergency Medicine
DX: J45.41 Moderate persistent asthma with (acute) exacerbation (principal); J18.9 Pneumonia, unspecified organism; R06.02 Shortness of breath; Z20.822 Contact with and (suspected) exposure to COVID-19; Z79.899 Other long term (current) drug therapy
CPT/HCPCS: 36415; 71045; 80048; 80076; 83735; 83880; 84484; 85025; 87635; 93005; 94640; 96365; 96366; 99284; 99285; J3475

== ENCOUNTER 2021-05-23 12:53 | Emergency (ER) | payer MEDICAID, SELFPAY ==
--- NOTE | ~2021-05-23 | XR_ITS ---
EXAMINATION: XR CHEST CLINICAL INFORMATION: SOB. COMPARISON: None TECHNIQUE: Frontal view of the chest was obtained. FINDINGS: The lungs are well-expanded and clear. The heart size and pulmonary vascularity is normal. There is mild spondylosis dorsal spine. There is mild levoscoliosis upper dorsal spine. No lytic process. The soft tissues are normal. XR/XR chest 1V IMPRESSION: Unremarkable chest exam.
[2021-05-23 13:30] VITALS: BP 113/76; PULSE 77; RESP 16; TEMP 36.3; O2SAT 98; BMI 26.5
[2021-05-23 16:12] LABS: MANUAL DIFF FLAG NO
[2021-05-23 16:28] LABS: Anion Gap 13 (12-20); Blood Urea Nitrogen 11 mg/dL (9-16); Calcium 9.7 mg/dL (8.4-10.2); Carbon Dioxide 27 mmol/L (22-29); Chloride 104 mmol/L (96-108); Creatinine Clr Calc Pharmacy 82.9; Estimated Glomerular Filt Rate > 60; Glucose Random 100 mg/dL (60-115); Potassium 3.8 mmol/L (3.3-5.1); Sodium 140 mmol/L (135-145)
[2021-05-23 16:31] LABS: COVID-19 Test Negative (Negative)
[2021-05-23 16:36] LABS: B Type Natriuretic Peptide < 10 pg/mL (<100); Troponin-I High Sensitivity < 3.5 ng/L (<3.5-17.0)
[2021-05-23 16:40] LABS: Basophils Percent Auto 0.3 % (0-2); Eosinophils Absolute Auto 0.2 X10*3/uL (0.0-0.4); Eosinophils Percent Auto 1.2 % (0-4); Hematocrit 40.9 % (37-47); Hemoglobin 13.6 g/dl (12.0-16.0); Imm Gran Abs Auto 0.08 X10*3/uL (0.00-0.03); Imm Gran Pct Auto 0.6 % (0.0-0.4); Lymphocytes Absolute Auto 4.7 X10*3/uL (1.2-4.9); Lymphocytes Percent Auto 37.8 % (20-40); Mean Corpuscular HGB Conc 33.3 g/dl (31.0-35.0); Mean Corpuscular Hemoglobin 28.8 pg (27.0-33.0); Mean Corpuscular Volume 86.7 fL (80-98); Mean Platelet Volume 9.6 fL (9.4-12.3); Monocytes Absolute Auto 0.6 X10*3/uL (0.1-1.2); Monocytes Percent Auto 4.9 % (2-11); Neutrophils Absolute Auto 6.8 X10*3/uL (2.0-8.3); Neutrophils Percent Auto 55.2 % (45-73); Platelet Count 246 X10*3/uL (160-400); Red Blood Count 4.72 X10*6/uL (4.20-5.50); White Blood Count 12.3 X10*3/uL (4.8-10.8)
[2021-05-23 17:14] VITALS: BP 120/67; PULSE 63; RESP 18; O2SAT 96
--- NOTE | 2021-05-23 17:15 | ED_ITS ---
HPI - SOB/Dyspnea General Chief Complaint: Dyspnea Stated Complaint: diff breathing Time Seen by Provider: 05/23/21 17:13 Source: patient Mode of arrival: ambulatory Limitations: no limitations History of Present Illness HPI Narrative: 56 years old female came in for evaluation of shortness of breath. Symptoms started 10 days ago patient was seen and evaluated in the ED twice for same symptoms, patient now complaining of bilateral chest pain with breathing, describes the pain as dull aching pain localized to both sides right and left with no radiation, constant, moderate 5/10, worsening with deep breathing and movement, nothing relieves the pain. Patient declined any recent travel or prolonged immobilization or leg swelling. Related Data Home Medications Medication Instructions Recorded Confirmed cetirizine 10 mg tablet 10 mg PO DAILY PRN 11/30/20 12/20/20 diclofenac sodium 1 % topical gel 2 g TOPICAL QID 11/30/20 12/20/20 docusate sodium 100 mg capsule 100 mg PO BID 11/30/20 12/20/20 (DOK) duloxetine 60 mg capsule,delayed 60 mg PO DAILY 11/30/20 12/20/20 release ergocalciferol (vitamin D2) 1,250 1,250 mcg PO REAL 11/30/20 12/20/20 mcg (50,000 unit) capsule fluticasone furoate 200 1 puff INHALATION DAILY 11/30/20 12/20/20 mcg-vilanterol 25 mcg/dose inhalation powder (Breo Ellipta) fluticasone propionate 50 2 spray INTRANASAL DAILY 11/30/20 12/20/20 mcg/actuation nasal spray,suspension ipratropium bromide 17 2 puff INHALATION QID PRN 11/30/20 12/20/20 mcg/actuation HFA aerosol inhaler (Atrovent HFA) lidocaine 5 % topical patch 1 patch TOPICAL DAILY 11/30/20 12/20/20 (Lidoderm) melatonin 5 mg tablet 5 - 10 mg PO BEDTIME PRN 11/30/20 12/20/20 montelukast 10 mg tablet 10 mg PO BEDTIME 11/30/20 12/20/20 omeprazole 20 mg capsule,delayed 20 mg PO BID 11/30/20 12/20/20 release polyethylene glycol 3350 17 17 g PO DAILY 11/30/20 12/20/20 gram/dose oral powder simvastatin 40 mg tablet 40 mg PO BEDTIME 11/30/20 12/20/20 Previous Rx's Medication Instructions Recorded gabapentin 300 mg capsule 300 mg PO BEDTIME #90 cap 12/20/20 naproxen 500 mg tablet 500 mg PO BID PRN #60 tab 12/20/20 cyclobenzaprine 5 mg tablet 5 mg PO BEDTIME PRN #90 tab 02/02/21 codeine 10 mg-guaifenesin 100 mg/5 10 ml PO Q4-6H PRN #237 ml 05/15/21 mL oral liquid prednisone 20 mg tablet 40 mg PO DAILY #10 tab 05/15/21 doxycycline hyclate 100 mg capsule 100 mg PO BID 7 Days #14 cap 05/17/21 Allergies Allergy/AdvReac Type Severity Reaction Status Date / Time pollen extracts [POLLEN] Allergy Unknown RUNNY Verified 12/20/20 08:00 NOSE, ITCHY EYES seasonl allergies Allergy Unknown asthma Uncoded 12/02/20 11:29 attacks Review of Systems Review of Systems: All other systems are reviewed and are negative Constitutional: Reports as per HPI and Reports no additional constitutional complaints Eyes: Reports as per HPI and Reports no additional eye complaints Reports system reviewed and no additional complaints, except as documented Cardiovascular: Reports as per HPI and Reports no additional cardiovascular complaints Respiratory: Reports as per HPI and Reports no additional respiratory complaints Gastrointestinal: Reports as per HPI and Reports no additional gastrointestinal complaints Genitourinary: Reports no additional female genitourinary complaints Musculoskeletal: Reports no additional musculoskeletal complaints Skin/Breast: Reports system reviewed and no additional complaints, except as docu Psychiatric: Reports no additional psychiatric complaints Endocrine: Reports no additional endocrine complaints Hematologic/Lymphatic: Reports no additional hematologic/lymphatic complaints Allergic/Immunologic: Reports no additional allergic/immunologic complaints Reports system reviewed and no additional complaints, except as documented and Reports Abnormal speech present [facility] Past Medical History Medical History Anxiety Arthritis Asthma Depression Migraine headache Surgical History Hx of cholecystectomy Hx of elbow surgery Hx of hysterectomy Social History Social History Household Members: Spouse Housing: House Do you presently have visiting nurse or other home services: No Alcohol intake: unknown Patient Tobacco Use Status: Never used Tobacco Advance Directives: No Advance Directives Information Provided: No service: No Current occupational status: unemployed Physical Exam Vital Signs: Vital Signs: Last Vital Signs Temp 97.4 F 05/23/21 13:30 Pulse 88 05/23/21 18:40 Resp 18 05/23/21 18:40 BP 120/67 05/23/21 17:14 Pulse Ox 98 05/23/21 18:40 Body Mass Index 26.5 Vital signs have been reviewed as appeared to be correct. Blood pressure normal. Heart rate normal. Respiration rate normal. Temperature normal. Oxygen saturation normal. Appearance: Alert. Oriented X3. No acute distress. Head: Normal external exam. Normocephalic. Atraumatic. No García signs noted. No raccoon eyes noted Eyes: PERRLA. EOMI. Conjunctiva and sclera normal. Eyelids normal. ENT: TM's Normal. Pharynx normal. Uvula midline. Moist mucous membranes. No trismus noted. No drooling noted. No muffled voice noted. Neck: Normal inspection. Neck supple. FROM. No adenopathy. Thyroid Normal. No meningeal signs. No neck mass noted. CVS: Normal heart rate and rhythm. Heart sound normal. No murmurs noted. Pulses normal throughout. Respiratory: No respiratory distress. Painless inspiration. Breath sounds normal. Mild diffuse expiratory wheezing with prolonged expiration. Chest nontender. No accessory muscle usage noted or decreased air movement noted. Abdomen: Soft and nontender. Bowel sounds normal in all 4 quadrants. No distention noted. No organomegaly noted. No visible injury noted. Back: No CVA tenderness. Full range of motion noted. Skin: Skin warm and dry. Normal skin color. Normal skin turgor. No rashes/lesions/lacerations noted. Extremities: No lower extremity edema. Extremities exhibit normal range of motion. Extremities nontender. Neuro: Oriented X 3. Cranial nerve exam: II-XII are grossly intact No motor deficit. No sensory deficit. Reflexes normal. Course Course Course Narrative: Assessment and plan. 56-year-old female history of asthma care in with difficulty breathing on bilateral chest pain that appears to be muscular, patient had unremarkable labs, chest x-ray, D-dimer is unremarkable and patient at low risk for PE, patient improved after received continuous bronchodilator treatment. MDM - SOB/Dyspnea Lab Data Attestation: I reviewed the patient's lab results. Result diagrams: 05/23/21 16:05 05/23/21 16:05 Labs: Lab Results 05/23/21 05/23/21 05/23/21 Range/Units 16:05 16:05 16:05 WBC 12.3 H (4.8-10.8) X10*3/uL RBC 4.72 (4.20-5.50) X10*6/uL Hgb 13.6 (12.0-16.0) g/dl Hct 40.9 (37-47) % MCV 86.7 (80-98) fL MCH 28.8 (27.0-33.0) pg MCHC 33.3 (31.0-35.0) g/dl RDW 13.0 (11.0-16.0) % Plt Count 246 (160-400) X10*3/uL MPV 9.6 (9.4-12.3) fL Immature Gran % (Auto) 0.6 H (0.0-0.4) % Neut % (Auto) 55.2 (45-73) % Lymph % (Auto) 37.8 (20-40) % [place] % (Auto) 4.9 (2-11) % Eos % (Auto) 1.2 (0-4) % Baso % (Auto) 0.3 (0-2) % Lymph # (Auto) 4.7 (1.2-4.9) X10*3/uL [place] # (Auto) 0.6 (0.1-1.2) X10*3/uL Eos # (Auto) 0.2 (0.0-0.4) X10*3/uL Baso # (Auto) 0.0 (0.0-0.2) X10*3/uL Abs Immat Gran (auto) 0.08 H (0.00-0.03) X10*3/uL Absolute Neuts (auto) 6.8 (2.0-8.3) X10*3/uL Absolute Nucleated RBC 0.000 (0.0-0.012) X10*3/uL Nucleated RBC % (auto) 0.0 (0.0-0.2) /100WBC D-Dimer NG/ML Sodium 140 (135-145) mmol/L Potassium 3.8 (3.3-5.1) mmol/L Chloride 104 (96-108) mmol/L Carbon Dioxide 27 (22-29) mmol/L Anion Gap 13 (12-20) BUN 11 (9-16) mg/dL Creatinine 0.69 (0.5-1.4) mg/dL Estim Creat Clear Calc 82.9 Estimated GFR > 60 Random Glucose 100 (60-115) mg/dL Calcium 9.7 (8.4-10.2) mg/dL Troponin I High Sens < 3.5 (<3.5-17.0) ng/L B-Natriuretic Peptide < 10 (<100) pg/mL Urine Color Urine Appearance Urine pH (5.0-8.0) Ur Specific [place] (1.005-1.025) Urine Protein (NEG-TRACE) MG/DL Urine Glucose (UA) (NEG) MG/DL Urine Ketones (NEG) MG/DL Urine Blood (NEG) Urine Nitrite (NEG) Ur Leukocyte Esterase (NEG) COVID-19 ([facility]) (Negative) COVID-19 Clin Com 05/23/21 05/23/21 05/23/21 Range/Units 16:05 17:28 18:58 WBC (4.8-10.8) X10*3/uL RBC (4.20-5.50) X10*6/uL Hgb (12.0-16.0) g/dl Hct (37-47) % MCV (80-98) fL MCH (27.0-33.0) pg MCHC (31.0-35.0) g/dl RDW (11.0-16.0) % Plt Count (160-400) X10*3/uL MPV (9.4-12.3) fL Immature Gran % (Auto) (0.0-0.4) % Neut % (Auto) (45-73) % Lymph % (Auto) (20-40) % [place] % (Auto) (2-11) % Eos % (Auto) (0-4) % Baso % (Auto) (0-2) % Lymph # (Auto) (1.2-4.9) X10*3/uL [place] # (Auto) (0.1-1.2) X10*3/uL Eos # (Auto) (0.0-0.4) X10*3/uL Baso # (Auto) (0.0-0.2) X10*3/uL Abs Immat Gran (auto) (0.00-0.03) X10*3/uL Absolute Neuts (auto) (2.0-8.3) X10*3/uL Absolute Nucleated RBC (0.0-0.012) X10*3/uL Nucleated RBC % (auto) (0.0-0.2) /100WBC D-Dimer < 200 NG/ML Sodium (135-145) mmol/L Potassium (3.3-5.1) mmol/L Chloride (96-108) mmol/L Carbon Dioxide (22-29) mmol/L Anion Gap (12-20) BUN (9-16) mg/dL Creatinine (0.5-1.4) mg/dL Estim Creat Clear Calc Estimated GFR Random Glucose (60-115) mg/dL Calcium (8.4-10.2) mg/dL Troponin I High Sens (<3.5-17.0) ng/L B-Natriuretic Peptide (<100) pg/mL Urine Color YELLOW Urine Appearance HAZY Urine pH 6.5 (5.0-8.0) Ur Specific [place] 1.020 (1.005-1.025) Urine Protein NEG (NEG-TRACE) MG/DL Urine Glucose (UA) NEG (NEG) MG/DL Urine Ketones NEG (NEG) MG/DL Urine Blood NEG (NEG) Urine Nitrite NEG (NEG) Ur Leukocyte Esterase NEG (NEG) COVID-19 ([facility]) Negative (Negative) COVID-19 Clin Com See Note Imaging Data Chest x-ray: Radiologist's impression: Unremarkable chest exam. Discharge Plan Discharge Clinical Impression: Asthma with exacerbation Qualifiers: Asthma severity: moderate Asthma persistence: unspecified Qualified Code(s): J45.901 - Unspecified asthma with (acute) exacerbation Patient Disposition: Home, Self-Care Instructions: Bronchospasm (ED) Prescriptions: No Action gabapentin 300 mg capsule 300 mg PO BEDTIME Qty: 90 RF: 1 cyclobenzaprine 5 mg tablet 5 mg PO BEDTIME PRN (Reason: for muscle spasm) Qty: 90 RF: 1 cetirizine 10 mg tablet 10 mg PO DAILY PRN (Reason: Allergy Symptoms) RF: 0 simvastatin 40 mg tablet 40 mg PO BEDTIME RF: 0 lidocaine [Lidoderm] 5 % adhesive patch,medicated 1 patch topical DAILY RF: 0 docusate sodium [DOK] 100 mg capsule 100 mg PO BID RF: 0 omeprazole 20 mg capsule,delayed release(DR/EC) 20 mg PO BID RF: 0 montelukast 10 mg tablet 10 mg PO BEDTIME RF: 0 ergocalciferol (vitamin D2) 1,250 mcg (50,000 unit) capsule 1,250 mcg PO REAL RF: 0 polyethylene glycol 3350 17 gram/dose powder 17 g PO DAILY RF: 0 fluticasone propionate 50 mcg/actuation spray,suspension 2 spray intranasal DAILY RF: 0 duloxetine 60 mg capsule,delayed release(DR/EC) 60 mg PO DAILY RF: 0 Atrovent HFA 17 mcg/actuation HFA aerosol inhaler 2 puff inhalation QID PRN (Reason: wheezing) RF: 0 diclofenac sodium 1 % gel 2 g topical QID RF: 0 melatonin 5 mg tablet 5 - 10 mg PO BEDTIME PRN (Reason: insomnia) RF: 0 Breo Ellipta 200-25 mcg/dose blister with device 1 puff inhalation DAILY RF: 0 prednisone 20 mg tablet 40 mg PO DAILY Qty: 10 RF: 0 codeine-guaifenesin 10-100 mg/5 mL liquid 10 ml PO Q4-6H PRN (Reason: cough) Qty: 237 RF: 0 doxycycline hyclate 100 mg capsule 100 mg PO BID 7 Days Qty: 14 RF: 0 naproxen 500 mg tablet 500 mg PO BID PRN (Reason: pain) Qty: 60 RF: 1 Referrals: Rod Givens NP [Primary Care Provider] - 2 days
[2021-05-23] MEDS: Albuterol Sulfate (0.083%) 2.5 MG/3 ML VIAL.NEB INHALE (17:24)
[2021-05-23] MEDS: Albuterol/Iprat 2.5/0.5MG 3 ML AMPUL.NEB INHALE (17:24)
[2021-05-23 17:25] VITALS: PULSE 86; O2SAT 95
[2021-05-23] MEDS: methylPREDNISolone Sod Succ 125 MG/2 ML VIAL IVPUSH (17:36)
[2021-05-23 17:41] LABS: Appearance Urine HAZY; Color Urine YELLOW; Glucose Urine UA NEG (NEG); Leukocyte Esterase Urine NEG (NEG); Nitrite Urine NEG (NEG); PH 6.5 (5.0-8.0); Urine Blood NEG (NEG); Urine Ketones NEG (NEG); Urine Protein NEG (NEG-TRACE)
[2021-05-23 18:40] VITALS: PULSE 88; RESP 18; O2SAT 98
[2021-05-23 19:24] LABS: D Dimer < 200 NG/ML
== END 2021-05-23 20:11 | disposition home or self-care (01) ==
PROVIDERS: Emergency Provider Emergency Medicine; PCP Nurse Practitioner Family
DX: J45.901 Unspecified asthma with (acute) exacerbation (principal); R06.00 Dyspnea, unspecified; Z20.822 Contact with and (suspected) exposure to COVID-19; Z79.899 Other long term (current) drug therapy
CPT/HCPCS: 36415; 71045; 80048; 81003; 83880; 84484; 85025; 85379; 87635; 94640; 96374; 99284; J2930

== ENCOUNTER 2021-06-27 11:38 | Outpatient (REF) | payer MEDICAID, SELFPAY ==
--- NOTE | ~2021-06-27 | XR_ITS ---
EXAMINATION: XR SHOULDER, LEFT XR FOREARM, LEFT XR HAND, LEFT CLINICAL INFORMATION: Pain COMPARISON: 06/12/2018 TECHNIQUE: 4 views of the left shoulder. 2 views of the left forearm. 3 views of the left hand. FINDINGS: Left shoulder: There is no fracture or dislocation. The glenohumeral joint is well aligned. Small osteophytes at the glenohumeral joint. The acromioclavicular joint is intact. The visualized lung is clear. The visualized ribs are intact. Left forearm: No fracture or cortical disruption. Appropriate alignment at the wrist and elbow. The soft tissues are unremarkable. Left hand: No fracture or dislocation. The carpal rows are well aligned. Joint spaces of the hand are somewhat narrowed at the interphalangeal joints. This is similar to prior. Mild degenerative change of the first carpometacarpal joint with small osteophytes. The soft tissues are unremarkable. XR/XR hand wrist LT IMPRESSION: Mild arthritic changes at the left hand/wrist, similar to prior. Mild degenerative change of the left glenohumeral joint.
--- NOTE | ~2021-06-27 | XR_ITS ---
EXAMINATION: XR SHOULDER, LEFT XR FOREARM, LEFT XR HAND, LEFT CLINICAL INFORMATION: Pain COMPARISON: 06/12/2018 TECHNIQUE: 4 views of the left shoulder. 2 views of the left forearm. 3 views of the left hand. FINDINGS: Left shoulder: There is no fracture or dislocation. The glenohumeral joint is well aligned. Small osteophytes at the glenohumeral joint. The acromioclavicular joint is intact. The visualized lung is clear. The visualized ribs are intact. Left forearm: No fracture or cortical disruption. Appropriate alignment at the wrist and elbow. The soft tissues are unremarkable. Left hand: No fracture or dislocation. The carpal rows are well aligned. Joint spaces of the hand are somewhat narrowed at the interphalangeal joints. This is similar to prior. Mild degenerative change of the first carpometacarpal joint with small osteophytes. The soft tissues are unremarkable. XR/XR shoulder LT min 2V IMPRESSION: Mild arthritic changes at the left hand/wrist, similar to prior. Mild degenerative change of the left glenohumeral joint.
--- NOTE | ~2021-06-27 | XR_ITS ---
EXAMINATION: XR SHOULDER, LEFT XR FOREARM, LEFT XR HAND, LEFT CLINICAL INFORMATION: Pain COMPARISON: 06/12/2018 TECHNIQUE: 4 views of the left shoulder. 2 views of the left forearm. 3 views of the left hand. FINDINGS: Left shoulder: There is no fracture or dislocation. The glenohumeral joint is well aligned. Small osteophytes at the glenohumeral joint. The acromioclavicular joint is intact. The visualized lung is clear. The visualized ribs are intact. Left forearm: No fracture or cortical disruption. Appropriate alignment at the wrist and elbow. The soft tissues are unremarkable. Left hand: No fracture or dislocation. The carpal rows are well aligned. Joint spaces of the hand are somewhat narrowed at the interphalangeal joints. This is similar to prior. Mild degenerative change of the first carpometacarpal joint with small osteophytes. The soft tissues are unremarkable. XR/XR forearm LT 2V IMPRESSION: Mild arthritic changes at the left hand/wrist, similar to prior. Mild degenerative change of the left glenohumeral joint.
--- NOTE | ~2021-06-27 | XR_ITS ---
EXAMINATION: XR CERVICAL SPINE CLINICAL INFORMATION: Pain COMPARISON: 06/12/2018 TECHNIQUE: 5 views of the cervical spine, including oblique views. FINDINGS: No fracture or subluxation. Vertebral body height and alignment maintained. Disc space narrowing is mild at the C5-C6 level with endplate sclerosis and osteophyte formation. This is somewhat progressive from 2018. There is bony neuroforaminal narrowing on the left at C5-C6 and C6-C7. This appears somewhat progressed from prior as well. The atlantoaxial joint is well aligned. The dens is intact. The prevertebral soft tissues are unremarkable. The lung apices are clear. XR/XR cervical spine min 6V IMPRESSION: Mild to moderate degenerative changes of the cervical spine at the C5-C6 and C6-C7 levels, appearing somewhat progressed from 2018.
== END 2021-06-27 11:39 | disposition home or self-care (01) ==
LOC: HO.XRAY 11:38
PROVIDERS: Visit Provider Nurse Practitioner Family
DX: M25.512 Pain in left shoulder (principal); M79.642 Pain in left hand
CPT/HCPCS: 72052; 73030; 73090; 73110; 73130

== ENCOUNTER 2021-08-04 14:30 | Emergency (ER) | payer MEDICAID, SELFPAY ==
--- NOTE | ~2021-08-04 | XR_ITS ---
EXAMINATION: XR CHEST CLINICAL INFORMATION: Cough and shortness of breath. COMPARISON: Chest x-ray 05/23/2021 TECHNIQUE: 2 views of the chest were obtained. FINDINGS: Lungs are clear. No pulmonary vascular congestion. There is no pleural effusion. The heart size is normal. The cardiac and mediastinal contours are normal. There is a dextroscoliosis of thoracolumbar spine. Multilevel degenerative spondylosis spine. Orthopedic anchor in the right humeral head. Surgical clips right upper quadrant of abdomen. XR/XR chest 2V IMPRESSION: No acute abnormality the chest.
[2021-08-04 14:40] VITALS: BP 120/72; PULSE 71; RESP 20; TEMP 36.7; O2SAT 97; BMI 28.7
[2021-08-04 16:14] LABS: Influenza A PCR NEGATIVE (Negative); Influenza B PCR NEGATIVE (Negative); Resp Syncy Virus RNA Qual PCR NEGATIVE (Negative); SARS COV2 PCR INHOUSE NEGATIVE (Negative)
--- NOTE | 2021-08-04 19:32 | ED.ASTHMA ---
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 increased wheezing cough no fever complaining of pain bilateral chest deep inspiration patient been vaccinated against COVID Related Data Home Medications Medication Instructions Recorded Confirmed cetirizine 10 mg tablet 10 mg PO DAILY PRN 11/30/20 12/20/20 diclofenac sodium 1 % topical gel 2 g TOPICAL QID 11/30/20 12/20/20 docusate sodium 100 mg capsule 100 mg PO BID 11/30/20 12/20/20 (DOK) duloxetine 60 mg capsule,delayed 60 mg PO DAILY 11/30/20 12/20/20 release ergocalciferol (vitamin D2) 1,250 1,250 mcg PO REAL 11/30/20 12/20/20 mcg (50,000 unit) capsule fluticasone furoate 200 1 puff INHALATION DAILY 11/30/20 12/20/20 mcg-vilanterol 25 mcg/dose inhalation powder (Breo Ellipta) fluticasone propionate 50 2 spray INTRANASAL DAILY 11/30/20 12/20/20 mcg/actuation nasal spray,suspension ipratropium bromide 17 2 puff INHALATION QID PRN 11/30/20 12/20/20 mcg/actuation HFA aerosol inhaler (Atrovent HFA) lidocaine 5 % topical patch 1 patch TOPICAL DAILY 11/30/20 12/20/20 (Lidoderm) melatonin 5 mg tablet 5 - 10 mg PO BEDTIME PRN 11/30/20 12/20/20 montelukast 10 mg tablet 10 mg PO BEDTIME 11/30/20 12/20/20 omeprazole 20 mg capsule,delayed 20 mg PO BID 11/30/20 12/20/20 release polyethylene glycol 3350 17 17 g PO DAILY 11/30/20 12/20/20 gram/dose oral powder simvastatin 40 mg tablet 40 mg PO BEDTIME 11/30/20 12/20/20 Previous Rx's Medication Instructions Recorded naproxen 500 mg tablet 500 mg PO BID PRN #60 tab 12/20/20 cyclobenzaprine 5 mg tablet 5 mg PO BEDTIME PRN #90 tab 02/02/21 codeine 10 mg-guaifenesin 100 mg/5 10 ml PO Q4-6H PRN #237 ml 05/15/21 mL oral liquid prednisone 20 mg tablet 40 mg PO DAILY #10 tab 05/15/21 doxycycline hyclate 100 mg capsule 100 mg PO BID 7 Days #14 cap 05/17/21 gabapentin 300 mg capsule 300 mg PO BEDTIME #90 cap 06/05/21 albuterol sulfate 2.5 mg (3 mL) INHALATION Q4-6H PRN 08/04/21 #90 ml albuterol sulfate 90 mcg/actuation 2 puff INHALATION Q4-6H PRN #8.5 g 08/04/21 aerosol inhaler (ProAir HFA) codeine 10 mg-guaifenesin 100 mg/5 10 ml PO Q4-6H PRN #237 ml 08/04/21 mL oral liquid prednisone 20 mg tablet 40 mg PO DAILY #10 tab 08/04/21 Allergies Allergy/AdvReac Type Severity Reaction Status Date / Time pollen extracts [POLLEN] Allergy Unknown RUNNY Verified 08/04/21 14:40 NOSE, ITCHY EYES seasonl allergies Allergy Unknown asthma Uncoded 08/04/21 14:40 attacks Review of Systems Review of Systems: Yes all other systems are reviewed and are negative PMFSH Past Medical History Medical History Anxiety Arthritis Asthma Depression Migraine headache Surgical History Hx of cholecystectomy Hx of elbow surgery Hx of hysterectomy Social History Social History Household Members: Spouse Housing: House Do you presently have visiting nurse or other home services: No Alcohol intake: unknown Patient Tobacco Use Status: Never used Tobacco Advance Directives: No Advance Directives Information Provided: Yes Patient : No service: No Current occupational status: unemployed Physical Exam Vital Signs: Vital Signs: Last Vital Signs Temp 98.0 F 08/04/21 14:40 Pulse 85 08/04/21 20:19 Resp 20 08/04/21 14:40 BP 120/72 08/04/21 14:40 Pulse Ox 97 08/04/21 14:40 BMI result Body Mass Index 28.7 Appearance: Alert. Oriented X3. No acute distress. Frequent dry cough ENT: Pharynx normal. Oral Mucosa moist Neck: Normal inspection. Neck supple. CVS: Normal heart rate and rhythm. Pulses normal. Respiratory: No respiratory distress. Equal air entry bilateral, bilateral prolonged expiration with wheezing Abdomen: Soft and nontender. Bowel sounds are present, no mass palpable, no CVA tenderness Skin: Skin warm and dry. Normal skin color. Normal skin turgor. Extremities: No lower extremity edema. No calf tenderness Neuro: Oriented X 3. MDM - Asthma MDM Narrative Medical decision making narrative: Patient with mild asthmatic bronchitis improved after DuoNeb treatment saturating 98% at room air will discharge patient home on prednisone and continue albuterol treatment Lab Data Labs: Lab Results 08/04/21 Range/Units 15:03 Influenza Type A (PCR) NEGATIVE (Negative) Influenza Type B (PCR) NEGATIVE (Negative) RSV RNA Qual (PCR) NEGATIVE (Negative) SARS-CoV-2 RNA (RT-PCR) NEGATIVE (Negative) Discharge Plan Discharge Clinical Impression: Asthmatic bronchitis Qualifiers: Asthma severity: moderate Asthma persistence: persistent Asthma complication type: with acute exacerbation Qualified Code(s): J45.41 - Moderate persistent asthma with (acute) exacerbation Patient Disposition: Home, Self-Care Instructions: Asthma (ED) Additional Instructions: Take medication as prescribed and follow with PCP if not better Prescriptions: New prednisone 20 mg tablet 40 mg PO DAILY Qty: 10 RF: 0 codeine-guaifenesin 10-100 mg/5 mL liquid 10 ml PO Q4-6H PRN (Reason: cough) Qty: 237 RF: 0 albuterol sulfate [ProAir HFA] 90 mcg/actuation HFA aerosol inhaler 2 puff inhalation Q4-6H PRN (Reason: Wheezing) Qty: 8.5 RF: 0 albuterol sulfate 2.5 mg /3 mL (0.083 %) solution for nebulization 2.5 mg inhalation Q4-6H PRN (Reason: shortness of breath or wheezing) Qty: 90 RF: 0 No Action cyclobenzaprine 5 mg tablet 5 mg PO BEDTIME PRN (Reason: for muscle spasm) Qty: 90 RF: 1 gabapentin 300 mg capsule 300 mg PO BEDTIME Qty: 90 RF: 1 cetirizine 10 mg tablet 10 mg PO DAILY PRN (Reason: Allergy Symptoms) RF: 0 simvastatin 40 mg tablet 40 mg PO BEDTIME RF: 0 lidocaine [Lidoderm] 5 % adhesive patch,medicated 1 patch topical DAILY RF: 0 docusate sodium [DOK] 100 mg capsule 100 mg PO BID RF: 0 omeprazole 20 mg capsule,delayed release(DR/EC) 20 mg PO BID RF: 0 montelukast 10 mg tablet 10 mg PO BEDTIME RF: 0 ergocalciferol (vitamin D2) 1,250 mcg (50,000 unit) capsule 1,250 mcg PO REAL RF: 0 polyethylene glycol 3350 17 gram/dose powder 17 g PO DAILY RF: 0 fluticasone propionate 50 mcg/actuation spray,suspension 2 spray intranasal DAILY RF: 0 duloxetine 60 mg capsule,delayed release(DR/EC) 60 mg PO DAILY RF: 0 Atrovent HFA 17 mcg/actuation HFA aerosol inhaler 2 puff inhalation QID PRN (Reason: wheezing) RF: 0 diclofenac sodium 1 % gel 2 g topical QID RF: 0 melatonin 5 mg tablet 5 - 10 mg PO BEDTIME PRN (Reason: insomnia) RF: 0 Breo Ellipta 200-25 mcg/dose blister with device 1 puff inhalation DAILY RF: 0 prednisone 20 mg tablet 40 mg PO DAILY Qty: 10 RF: 0 codeine-guaifenesin 10-100 mg/5 mL liquid 10 ml PO Q4-6H PRN (Reason: cough) Qty: 237 RF: 0 doxycycline hyclate 100 mg capsule 100 mg PO BID 7 Days Qty: 14 RF: 0 naproxen 500 mg tablet 500 mg PO BID PRN (Reason: pain) Qty: 60 RF: 1 Interventions: ED Discharge Assessment Last Done: 08/04/21 21:34 Discharge Date/Time: 08/04/21 21:35
[2021-08-04] MEDS: guaiFEN/Codeine SF 200/20/10ML 10 ML LIQUID PO (19:50)
[2021-08-04] MEDS: predniSONE 20 MG TABLET 40 MG PO (19:50)
[2021-08-04 20:19] VITALS: PULSE 85; O2SAT 98
[2021-08-04] MEDS: Albuterol/Iprat 2.5/0.5MG 3 ML AMPUL.NEB INHALE (20:19)
== END 2021-08-04 21:35 | disposition home or self-care (01) ==
PROVIDERS: Emergency Provider Internal Medicine
DX: J45.41 Moderate persistent asthma with (acute) exacerbation (principal); Z20.822 Contact with and (suspected) exposure to COVID-19
CPT/HCPCS: 0241U; 36415; 71046; 94640; 99283; 99284

== ENCOUNTER → 2021-08-15 12:55 | Outpatient (BNVA) | payer MEDICAID, SELFPAY | PROVIDERS: PCP Nurse Practitioner Family; Visit Provider Physician Assistant | DX: M18.9 Osteoarthritis of first carpometacarpal joint, unspecified (principal) | CPT/HCPCS: 99202 ==

== ENCOUNTER 2021-08-19 06:42 | Emergency (ER) | payer MEDICAID, SELFPAY ==
--- NOTE | ~2021-08-19 | XR_ITS ---
EXAMINATION: XR CHEST CLINICAL INFORMATION: Cough COMPARISON: 08/04/2021 TECHNIQUE: 2 views of the chest were obtained. FINDINGS: Lungs are well expanded. Linear opacity of minimal discoid atelectasis in the left lateral base. No pulmonary consolidation, pleural effusion or pneumothorax. Cardiac silhouette is normal in size. The hilar contours are normal. A metallic anchor projects over the right humeral head. Correlate for history of remote rotator cuff surgery. Dextroscoliosis of the degenerated mid to lower thoracic spine. Cholecystectomy clips in the right upper abdomen. XR/XR chest 2V IMPRESSION: No evidence of pneumonia.
[2021-08-19 07:16] VITALS: BP 126/76; PULSE 65; RESP 20; TEMP 36.5; O2SAT 97; BMI 28.7
[2021-08-19 08:08] LABS: COVID-19 Test Negative (Negative)
--- NOTE | 2021-08-19 11:14 | ECG_ITS ---
Test Reason : SOB Blood Pressure : / mmHG Vent. Rate : 064 BPM Atrial Rate : 064 BPM P-R Int : 140 ms QRS Dur : 088 ms QT Int : 420 ms P-R-T Axes : 058 012 027 degrees QTc Int : 433 ms Normal sinus rhythm Cannot rule out Anterior infarct (cited on or before 17-MAY-2021) - could be related to lead placement Abnormal ECG When compared with ECG of 17-MAY-2021 13:22, No significant change was found Referred By: Brice Gupta Electronically Signed By:TRUDY BURROWS
--- NOTE | 2021-08-19 11:19 | ED.SOB ---
HPI - SOB/Dyspnea General Chief Complaint: Dyspnea Stated Complaint: diff breathing Time Seen by Provider: 08/19/21 11:14 Source: patient Mode of arrival: ambulatory Limitations: no limitations History of Present Illness HPI Narrative: 56 years old female came in for evaluation of shortness of breath. Symptoms started about 2 weeks ago, patient with history of asthma using albuterol inhaler, patient was seen by PCP who started her on prednisone for few days, 2 days after finished the prednisone course started to have worsening of her symptoms, then patient was seen at the Urgent Care prescribed another course of prednisone patient felt better with prednisone until yesterday when she started to have shortness of breath again, patient declined any lower extremities tenderness or swelling, no recent travel. Patient declined any fever, coughing intermittently with no sputum production. Patient declined chest pain, no abdominal pain. Related Data Home Medications Medication Instructions Recorded Confirmed cetirizine 10 mg tablet 10 mg PO DAILY PRN 11/30/20 12/20/20 diclofenac sodium 1 % topical gel 2 g TOPICAL QID 11/30/20 12/20/20 docusate sodium 100 mg capsule 100 mg PO BID 11/30/20 12/20/20 (DOK) duloxetine 60 mg capsule,delayed 60 mg PO DAILY 11/30/20 12/20/20 release ergocalciferol (vitamin D2) 1,250 1,250 mcg PO REAL 11/30/20 12/20/20 mcg (50,000 unit) capsule fluticasone furoate 200 1 puff INHALATION DAILY 11/30/20 12/20/20 mcg-vilanterol 25 mcg/dose inhalation powder (Breo Ellipta) fluticasone propionate 50 2 spray INTRANASAL DAILY 11/30/20 12/20/20 mcg/actuation nasal spray,suspension ipratropium bromide 17 2 puff INHALATION QID PRN 11/30/20 12/20/20 mcg/actuation HFA aerosol inhaler (Atrovent HFA) lidocaine 5 % topical patch 1 patch TOPICAL DAILY 11/30/20 12/20/20 (Lidoderm) melatonin 5 mg tablet 5 - 10 mg PO BEDTIME PRN 11/30/20 12/20/20 montelukast 10 mg tablet 10 mg PO BEDTIME 11/30/20 12/20/20 omeprazole 20 mg capsule,delayed 20 mg PO BID 11/30/20 12/20/20 release polyethylene glycol 3350 17 17 g PO DAILY 11/30/20 12/20/20 gram/dose oral powder simvastatin 40 mg tablet 40 mg PO BEDTIME 11/30/20 12/20/20 Previous Rx's Medication Instructions Recorded naproxen 500 mg tablet 500 mg PO BID PRN #60 tab 12/20/20 cyclobenzaprine 5 mg tablet 5 mg PO BEDTIME PRN #90 tab 02/02/21 codeine 10 mg-guaifenesin 100 mg/5 10 ml PO Q4-6H PRN #237 ml 05/15/21 mL oral liquid prednisone 20 mg tablet 40 mg PO DAILY #10 tab 05/15/21 doxycycline hyclate 100 mg capsule 100 mg PO BID 7 Days #14 cap 05/17/21 gabapentin 300 mg capsule 300 mg PO BEDTIME #90 cap 06/05/21 albuterol sulfate 2.5 mg (3 mL) INHALATION Q4-6H PRN 08/04/21 #90 ml albuterol sulfate 90 mcg/actuation 2 puff INHALATION Q4-6H PRN #8.5 g 08/04/21 aerosol inhaler (ProAir HFA) codeine 10 mg-guaifenesin 100 mg/5 10 ml PO Q4-6H PRN #237 ml 08/04/21 mL oral liquid prednisone 20 mg tablet 40 mg PO DAILY #10 tab 08/04/21 prednisone 10 mg tablet 10 mg PO BID #10 tab 08/19/21 Allergies Allergy/AdvReac Type Severity Reaction Status Date / Time pollen extracts [POLLEN] Allergy Unknown RUNNY Verified 08/04/21 14:40 NOSE, ITCHY EYES seasonl allergies Allergy Unknown asthma Uncoded 08/04/21 14:40 attacks Review of Systems Review of Systems: All other systems are reviewed and are negative Constitutional: Reports as per HPI and Reports no additional constitutional complaints Eyes: Reports as per HPI and Reports no additional eye complaints Reports system reviewed and no additional complaints, except as documented Cardiovascular: Reports as per HPI and Reports no additional cardiovascular complaints Respiratory: Reports as per HPI and Reports no additional respiratory complaints Gastrointestinal: Reports as per HPI and Reports no additional gastrointestinal complaints Genitourinary: Reports no additional female genitourinary complaints Musculoskeletal: Reports no additional musculoskeletal complaints Skin/Breast: Reports system reviewed and no additional complaints, except as docu Psychiatric: Reports no additional psychiatric complaints Endocrine: Reports no additional endocrine complaints Hematologic/Lymphatic: Reports no additional hematologic/lymphatic complaints Allergic/Immunologic: Reports no additional allergic/immunologic complaints Reports system reviewed and no additional complaints, except as documented and Reports Abnormal speech present [facility] [place] Past Medical History Medical History Anxiety Arthritis Asthma Depression Migraine headache Surgical History Hx of cholecystectomy Hx of elbow surgery Hx of hysterectomy Social History Social History Household Members: Spouse Housing: House Do you presently have visiting nurse or other home services: No Alcohol intake: unknown Patient Tobacco Use Status: Never used Tobacco Advance Directives: Yes Advance Directives Information Provided: Yes Advance Directives on File: No service: No Current occupational status: disabled Current occupation: rt handed Physical Exam Vital Signs: Vital Signs: Last Vital Signs Temp 98.1 F 08/19/21 11:41 Pulse 62 08/19/21 11:59 Resp 16 08/19/21 11:59 BP 106/68 08/19/21 11:41 Pulse Ox 96 08/19/21 11:41 BMI result Body Mass Index 28.7 Vital signs have been reviewed as appeared to be correct. Blood pressure normal. Heart rate normal. Respiration rate normal. Temperature normal. Oxygen saturation normal. Appearance: Alert. Oriented X3. No acute distress. Head: Normal external exam. Normocephalic. Atraumatic. No García signs noted. No raccoon eyes noted Eyes: PERRLA. EOMI. Conjunctiva and sclera normal. Eyelids normal. ENT: TM's Normal. Pharynx normal. Uvula midline. Moist mucous membranes. No trismus noted. No drooling noted. No muffled voice noted. Neck: Normal inspection. Neck supple. FROM. No adenopathy. Thyroid Normal. No meningeal signs. No neck mass noted. CVS: Normal heart rate and rhythm. Heart sound normal. No murmurs noted. Pulses normal throughout. Respiratory: Diffuse bilateral expiratory wheezing, prolonged expiration. No intercostal retraction. Abdomen: Soft and nontender. Bowel sounds normal in all 4 quadrants. No distention noted. No organomegaly noted. No visible injury noted. Back: No CVA tenderness. Full range of motion noted. Skin: Skin warm and dry. Normal skin color. Normal skin turgor. No rashes/lesions/lacerations noted. Extremities: No lower extremity edema. Extremities exhibit normal range of motion. Extremities nontender. Neuro: Oriented X 3. Cranial nerve exam: II-XII are grossly intact No motor deficit. No sensory deficit. Reflexes normal. Course Course Course Narrative: Assessment and plan. 56 years old female came in for worsening of asthma, leukocytosis likely secondary to recent use of steroid, patient also is taking Z-Kam now, patient has enough albuterol at home, will prescribe 5 days of prednisone. Patient at low risk for PE with a negative D-dimer. MDM - SOB/Dyspnea Lab Data Attestation: I reviewed the patient's lab results. Result diagrams: 08/19/21 11:57 08/19/21 11:57 Labs: Lab Results 08/19/21 08/19/21 08/19/21 Range/Units 07:40 11:57 11:57 WBC 17.1 H (4.8-10.8) X10*3/uL RBC 4.40 (4.20-5.50) X10*6/uL Hgb 12.4 (12.0-16.0) g/dl Hct 38.5 (37.0-47.0) % MCV 87.5 (80.0-98.0) fL MCH 28.2 (27.0-33.0) pg MCHC 32.2 (31.0-35.0) g/dl RDW 12.9 (11.0-16.0) % Plt Count 229 (160-400) X10*3/uL MPV 9.5 (9.4-12.3) fL Immature Gran % (Auto) 0.5 H (0.0-0.4) % Neut % (Auto) 67.6 (45-73) % Lymph % (Auto) 27.7 (20-40) % [place] % (Auto) 3.7 (2-11) % Eos % (Auto) 0.2 (0-4) % Baso % (Auto) 0.3 (0-2) % Lymph # (Auto) 4.7 (1.2-4.9) X10*3/uL [place] # (Auto) 0.6 (0.1-1.2) X10*3/uL Eos # (Auto) 0.0 (0.0-0.4) X10*3/uL Baso # (Auto) 0.1 (0.0-0.2) X10*3/uL Abs Immat Gran (auto) 0.08 H (0.00-0.03) X10*3/uL Absolute Neuts (auto) 11.6 H (2.0-8.3) x10*3/uL Absolute Nucleated RBC 0.000 (0.0-0.012) X10*3/uL Nucleated RBC % (auto) 0.0 (0.0-0.2) /100WBC D-Dimer High Sensitivty NG/ML Sodium 142 (135-145) mmol/L Potassium 3.8 (3.3-5.1) mmol/L Chloride 107 (96-108) mmol/L Carbon Dioxide 27 (22-29) mmol/L Anion Gap 12 (12-20) BUN 12 (9-16) mg/dL Creatinine 0.64 (0.5-1.4) mg/dL Estim Creat Clear Calc 92.8 Estimated GFR > 60 Random Glucose 92 (60-115) mg/dL Calcium 9.6 (8.4-10.2) mg/dL Total Bilirubin 0.4 (0.0-1.0) mg/dL Direct Bilirubin 0.2 (0.0-0.5) mg/dL AST 20 (5-31) U/L ALT 35 H (0-31) U/L Alkaline Phosphatase 93 (39-117) U/L Troponin I High Sens (<3.5-17.0) ng/L B-Natriuretic Peptide (<100) pg/mL Total Protein 6.9 (6.5-8.0) g/dL Albumin 4.1 (3.5-5.0) g/dL Lipase 30 (8-78) U/L COVID-19 (ALBINO) Negative (Negative) COVID-19 Clin Com See Note 08/19/21 08/19/21 08/19/21 Range/Units 11:57 11:57 11:57 WBC (4.8-10.8) X10*3/uL RBC (4.20-5.50) X10*6/uL Hgb (12.0-16.0) g/dl Hct (37.0-47.0) % MCV (80.0-98.0) fL MCH (27.0-33.0) pg MCHC (31.0-35.0) g/dl RDW (11.0-16.0) % Plt Count (160-400) X10*3/uL MPV (9.4-12.3) fL Immature Gran % (Auto) (0.0-0.4) % Neut % (Auto) (45-73) % Lymph % (Auto) (20-40) % [place] % (Auto) (2-11) % Eos % (Auto) (0-4) % Baso % (Auto) (0-2) % Lymph # (Auto) (1.2-4.9) X10*3/uL [place] # (Auto) (0.1-1.2) X10*3/uL Eos # (Auto) (0.0-0.4) X10*3/uL Baso # (Auto) (0.0-0.2) X10*3/uL Abs Immat Gran (auto) (0.00-0.03) X10*3/uL Absolute Neuts (auto) (2.0-8.3) x10*3/uL Absolute Nucleated RBC (0.0-0.012) X10*3/uL Nucleated RBC % (auto) (0.0-0.2) /100WBC D-Dimer High Sensitivty < 150 NG/ML Sodium (135-145) mmol/L Potassium (3.3-5.1) mmol/L Chloride (96-108) mmol/L Carbon Dioxide (22-29) mmol/L Anion Gap (12-20) BUN (9-16) mg/dL Creatinine (0.5-1.4) mg/dL Estim Creat Clear Calc Estimated GFR Random Glucose (60-115) mg/dL Calcium (8.4-10.2) mg/dL Total Bilirubin (0.0-1.0) mg/dL Direct Bilirubin (0.0-0.5) mg/dL AST (5-31) U/L ALT (0-31) U/L Alkaline Phosphatase (39-117) U/L Troponin I High Sens < 3.5 (<3.5-17.0) ng/L B-Natriuretic Peptide 29 (<100) pg/mL Total Protein (6.5-8.0) g/dL Albumin (3.5-5.0) g/dL Lipase (8-78) U/L COVID-19 (ALBINO) (Negative) COVID-19 Clin Com Imaging Data Chest x-ray: Attestation: I personally reviewed and interpreted this imaging study as follows: Radiologist's impression: Lungs are well expanded. Linear opacity of minimal discoid atelectasis in the left lateral base. No pulmonary consolidation, pleural effusion or pneumothorax. Cardiac silhouette is normal in size. The hilar contours are normal. A metallic anchor projects over the right humeral head. Correlate for history of remote rotator cuff surgery. Dextroscoliosis of the degenerated mid to lower thoracic spine. Cholecystectomy clips in the right upper abdomen. ECG Data Attestation: I personally reviewed and interpreted this ECG as follows: Interpretation: Normal sinus rhythm at 64 beats per minute, normal intervals, no ST-T changes, no significant change from old EKG. Discharge Plan Discharge Clinical Impression: Asthma with exacerbation Patient Disposition: Home, Self-Care Instructions: Asthma (ED) Prescriptions: New prednisone 10 mg tablet 10 mg PO BID Qty: 10 RF: 0 No Action cyclobenzaprine 5 mg tablet 5 mg PO BEDTIME PRN (Reason: for muscle spasm) Qty: 90 RF: 1 gabapentin 300 mg capsule 300 mg PO BEDTIME Qty: 90 RF: 1 cetirizine 10 mg tablet 10 mg PO DAILY PRN (Reason: Allergy Symptoms) RF: 0 simvastatin 40 mg tablet 40 mg PO BEDTIME RF: 0 lidocaine [Lidoderm] 5 % adhesive patch,medicated 1 patch topical DAILY RF: 0 docusate sodium [DOK] 100 mg capsule 100 mg PO BID RF: 0 omeprazole 20 mg capsule,delayed release(DR/EC) 20 mg PO BID RF: 0 montelukast 10 mg tablet 10 mg PO BEDTIME RF: 0 ergocalciferol (vitamin D2) 1,250 mcg (50,000 unit) capsule 1,250 mcg PO REAL RF: 0 polyethylene glycol 3350 17 gram/dose powder 17 g PO DAILY RF: 0 fluticasone propionate 50 mcg/actuation spray,suspension 2 spray intranasal DAILY RF: 0 duloxetine 60 mg capsule,delayed release(DR/EC) 60 mg PO DAILY RF: 0 Atrovent HFA 17 mcg/actuation HFA aerosol inhaler 2 puff inhalation QID PRN (Reason: wheezing) RF: 0 diclofenac sodium 1 % gel 2 g topical QID RF: 0 melatonin 5 mg tablet 5 - 10 mg PO BEDTIME PRN (Reason: insomnia) RF: 0 Breo Ellipta 200-25 mcg/dose blister with device 1 puff inhalation DAILY RF: 0 prednisone 20 mg tablet 40 mg PO DAILY Qty: 10 RF: 0 codeine-guaifenesin 10-100 mg/5 mL liquid 10 ml PO Q4-6H PRN (Reason: cough) Qty: 237 RF: 0 doxycycline hyclate 100 mg capsule 100 mg PO BID 7 Days Qty: 14 RF: 0 prednisone 20 mg tablet 40 mg PO DAILY Qty: 10 RF: 0 codeine-guaifenesin 10-100 mg/5 mL liquid 10 ml PO Q4-6H PRN (Reason: cough) Qty: 237 RF: 0 albuterol sulfate [ProAir HFA] 90 mcg/actuation HFA aerosol inhaler 2 puff inhalation Q4-6H PRN (Reason: Wheezing) Qty: 8.5 RF: 0 albuterol sulfate 2.5 mg /3 mL (0.083 %) solution for nebulization 2.5 mg inhalation Q4-6H PRN (Reason: shortness of breath or wheezing) Qty: 90 RF: 0 naproxen 500 mg tablet 500 mg PO BID PRN (Reason: pain) Qty: 60 RF: 1 Referrals: Angela Martel NP [Primary Care Provider] - 2 days
[2021-08-19 11:41] VITALS: BP 106/68; PULSE 68; RESP 16; TEMP 36.7; O2SAT 96
[2021-08-19] MEDS: Albuterol/Iprat 2.5/0.5MG 3 ML AMPUL.NEB INHALE (11:58)
[2021-08-19] MEDS: Albuterol Sulfate (0.083%) 2.5 MG/3 ML VIAL.NEB INHALE (11:58)
[2021-08-19 11:59] VITALS: PULSE 62; RESP 16; O2SAT 98
[2021-08-19 12:01] LABS: MANUAL DIFF FLAG NO
[2021-08-19] MEDS: methylPREDNISolone Sod Succ 125 MG/2 ML VIAL IVPUSH (12:01)
[2021-08-19 12:02] LABS: Basophils Absolute Auto 0.1 X10*3/uL (0.0-0.2); Basophils Percent Auto 0.3 % (0-2); Eosinophils Percent Auto 0.2 % (0-4); Hematocrit 38.5 % (37.0-47.0); Hemoglobin 12.4 g/dl (12.0-16.0); Imm Gran Abs Auto 0.08 X10*3/uL (0.00-0.03); Imm Gran Pct Auto 0.5 % (0.0-0.4); Lymphocytes Absolute Auto 4.7 X10*3/uL (1.2-4.9); Lymphocytes Percent Auto 27.7 % (20-40); Mean Corpuscular HGB Conc 32.2 g/dl (31.0-35.0); Mean Corpuscular Hemoglobin 28.2 pg (27.0-33.0); Mean Corpuscular Volume 87.5 fL (80.0-98.0); Mean Platelet Volume 9.5 fL (9.4-12.3); Monocytes Absolute Auto 0.6 X10*3/uL (0.1-1.2); Monocytes Percent Auto 3.7 % (2-11); Neutrophils Absolute Auto 11.6 x10*3/uL (2.0-8.3); Neutrophils Percent Auto 67.6 % (45-73); Platelet Count 229 X10*3/uL (160-400); Red Cell Distribution Width 12.9 % (11.0-16.0); White Blood Count 17.1 X10*3/uL (4.8-10.8)
[2021-08-19 12:12] LABS: D Dimer High Sensitivity < 150 NG/ML
[2021-08-19 12:18] LABS: Alanine Aminotransferase 35 U/L (0-31); Albumin Level 4.1 g/dL (3.5-5.0); Alkaline Phosphatase 93 U/L (39-117); Anion Gap 12 (12-20); Aspartate Amino Transferase 20 U/L (5-31); Bilirubin Direct 0.2 mg/dL (0.0-0.5); Bilirubin Total 0.4 mg/dL (0.0-1.0); Blood Urea Nitrogen 12 mg/dL (9-16); Calcium 9.6 mg/dL (8.4-10.2); Carbon Dioxide 27 mmol/L (22-29); Chloride 107 mmol/L (96-108); Creatinine Clr Calc Pharmacy 92.8; Estimated Glomerular Filt Rate > 60; Glucose Random 92 mg/dL (60-115); Lipase 30 U/L (8-78); Potassium 3.8 mmol/L (3.3-5.1); Sodium 142 mmol/L (135-145); Total Protein 6.9 g/dL (6.5-8.0)
[2021-08-19 12:24] LABS: B Type Natriuretic Peptide 29 pg/mL (<100); Troponin-I High Sensitivity < 3.5 ng/L (<3.5-17.0)
[2021-08-19 13:48] VITALS: BP 108/57; PULSE 92; RESP 18; O2SAT 95
== END 2021-08-19 13:53 | disposition home or self-care (01) ==
PROVIDERS: Emergency Provider Emergency Medicine; PCP Nurse Practitioner Family
DX: J45.901 Unspecified asthma with (acute) exacerbation (principal); Z20.822 Contact with and (suspected) exposure to COVID-19; R06.02 Shortness of breath; Z79.899 Other long term (current) drug therapy
CPT/HCPCS: 36415; 71046; 80048; 80076; 83690; 83880; 84484; 85025; 85379; 87635; 93005; 94640; 94644; 99284; J2930

== ENCOUNTER → 2021-08-20 09:01 | Outpatient (BNVA) | payer MEDICAID, SELFPAY | PROVIDERS: PCP Nurse Practitioner Family; Visit Provider Nurse Practitioner Family | DX: M25.50 Pain in unspecified joint (principal) | CPT/HCPCS: 99212 ==

== ENCOUNTER → 2021-09-05 10:37 | Outpatient (BNVA) | payer MEDICAID, SELFPAY | PROVIDERS: PCP Nurse Practitioner Family; Visit Provider Internal Medicine Pulmonary Disease ==

== ENCOUNTER 2021-09-07 09:42 | Outpatient (REF) | payer MEDICAID, SELFPAY ==
[2021-09-07 10:33] LABS: MANUAL DIFF FLAG NO
[2021-09-07 10:37] LABS: Basophils Percent Auto 0.5 % (0-2); Eosinophils Absolute Auto 0.1 X10*3/uL (0.0-0.4); Eosinophils Percent Auto 1.1 % (0-4); Hematocrit 39.4 % (37.0-47.0); Imm Gran Abs Auto 0.01 X10*3/uL (0.00-0.03); Imm Gran Pct Auto 0.1 % (0.0-0.4); Lymphocytes Absolute Auto 2.4 X10*3/uL (1.2-4.9); Lymphocytes Percent Auto 27.8 % (20-40); Mean Corpuscular Hemoglobin 28.6 pg (27.0-33.0); Mean Corpuscular Volume 86.8 fL (80.0-98.0); Monocytes Absolute Auto 0.4 X10*3/uL (0.1-1.2); Monocytes Percent Auto 4.8 % (2-11); Neutrophils Absolute Auto 5.6 x10*3/uL (2.0-8.3); Neutrophils Percent Auto 65.7 % (45-73); Platelet Count 230 X10*3/uL (160-400); Red Blood Count 4.54 X10*6/uL (4.20-5.50); Red Cell Distribution Width 12.8 % (11.0-16.0); White Blood Count 8.6 X10*3/uL (4.8-10.8)
== END 2021-09-07 09:43 | disposition home or self-care (01) ==
LOC: HO.LAB 09:42
PROVIDERS: PCP Nurse Practitioner Family; Visit Provider Internal Medicine Pulmonary Disease
DX: J30.89 Other allergic rhinitis (principal)
CPT/HCPCS: 36415; 82785; 85025; 86003; 99202

== ENCOUNTER 2021-09-27 13:06 | Outpatient (REF) | payer MEDICAID, SELFPAY ==
--- NOTE | ~2021-09-27 | XR_ITS ---
EXAMINATION: XR CHEST CLINICAL INFORMATION: Moderate persistent asthma, uncomplicated COMPARISON: 08/19/2021 TECHNIQUE: 2 views of the chest were obtained. FINDINGS: No focal consolidation, pleural effusion or pneumothorax. Heart size is normal. No acute osseous abnormality. Spinal scoliosis. Cholecystectomy clips. XR/XR chest 2V IMPRESSION: No acute pulmonary process.
== END 2021-09-27 13:07 | disposition home or self-care (01) ==
LOC: HO.XRAY 13:06
PROVIDERS: PCP Nurse Practitioner Family; Visit Provider Family Medicine
DX: J45.40 Moderate persistent asthma, uncomplicated (principal)
CPT/HCPCS: 71046

== ENCOUNTER → 2021-09-28 09:58 | Outpatient (BNVA) | payer MEDICAID, SELFPAY | PROVIDERS: PCP Nurse Practitioner Family; Visit Provider Internal Medicine Pulmonary Disease | DX: J45.909 Unspecified asthma, uncomplicated (principal) | CPT/HCPCS: 99212 ==

== ENCOUNTER 2021-09-28 11:00 | Outpatient (RCR) | payer MEDICAID, SELFPAY ==
--- NOTE | 2021-10-01 08:03 | MHC.OT.OEV ---
[address] [phone] F: [phone] Occupational Therapy Evaluation Diagnosis: PAIN IN LEFT HAND Date of Onset: 01/30/21 Attending Provider: Mecca Jo Prescribed Treatment: EVAL AND TREAT History of Current Condition: REPORTS ABOUT 10 YEAR HISTORY OF B/L HAND PAIN/ ARTHRITIS. IN THE LAST SIX MONTHS SHE REPORTS INCREASE IN PAIN AND WEAKNESS IN LEFT HAND. Significant Medical History: ASTHMA, ARTHRITIS, L ELBOW SURGERY ABOUT 10 YEARS AGO Precautions/Contraindications: PAIN Patient Goals: TO BE ABLE TO DO MORE THINGS, LESS PAIN Hand Dominance: Right Observations: GUARDING LEFT HAND QuickDASH Score: 61% Prior Level of Function and Occupation Self Care, Employment, Leisure: DISABLED SINCE ABOUT 2009 OR 2011 DUE TO ASTHMA AND ANXIETY Living Situation, Family and/or Social Support: LIVES WITH SPOUSE Current Level of Function and Occupation Self Care, Employment, Leisure: SIGNIFICANT DIFFICULTIES WITH BUTTONS, GETTING DRESSED. INCREASED PAIN WITH HOLD >10 POUNDS INCLUDING LAUNDRY BASKET. UNABLE TO CARRY 18 MONTH OLD GRANDSON WITH LEFT HAND. Sleep: WAKING OFTEN WITH CRAMPING, SWOLLEN HANDS Driving: NOT DRIVING Vision: WEARS GLASSES Pain Assessment Pain Score: 7-9/10 Pain Scale Used: Numeric (0 - 10) Pain Location and Description: 7/10 AT REST 9/10 WITH USE CMC, DORSUM OF HANDS, IPs GREATEST IN D2 AND D3 STABBING PAIN Aggravating Factors: MOPPING, SWEEPING, CARRYING HEAVY ITEMS/ POTS Alleviating Factors: IBUPROFEN, USING HEAT> COLD, ASPERCREAM AND VOLTAREN Sensory Assessment Temperature: Light Touch: Left Impaired Proprioception: Vibration: Comments: SEMMES MARYJANE IMPAIRED TO LIGHT TOUCH L HAND Dexterity Assessment Dexterity: Left Impaired Comments: FUNCTIONAL DEXTERITY TEST; LEFT 34 SECONDS (MOD FUNCTIONAL), RIGHT 25 SECONDS AROM(PROM) Strength Wrist Flexion: L 60, R 65 Extension: L 75, R 65 Ulnar Deviation: Radial Deviation: Comments: PAIN WITH L RADIAL DEVIATION Flexion: Extension: Ulnar Deviation: Radial Deviation: Comments: Digits Index MCP: PIP: DIP: Long MCP: PIP: DIP: Ring MCP: PIP: DIP: Small MCP: PIP: DIP: Comments: ABLE TO MAKE COMPOSITE FIST B/L'LY; POSTURING L HAND IN IP FLEX AND ABD Gross Grasp: L 15, R 55 Lateral Pinch: L 5, R 10 Two-Point Pinch: Three-Jaw Carlos: Comments: Patient Education Primary Language: Design Maker Required: No Current Knowledge: Understands information with skills for self-management Teaching Method: Demonstration Handouts Phone Call Verbal Education Needs Identified on Evaluation: ADL's Disease Information Equipment Use Exercise Pain Safety How did patient/family demonstrate learning? Patient demonstrates Patient verbalizes Barriers to Learning: None Readiness for Learning: Accepting Who was educated? Patient Comments: Plan of Care Assessment: TRENT REPORTS AN INCREASE IN HER LEFT HAND AND THUMB PAIN FOR ABOUT SIX MONTHS. SHE ADMITS TO FREQUENTLY CLEANING AND COOKING AT HOME AND LIMITING THE NEED TO ASK FOR ASSISTANCE WHEN A TASK IS TOO PAINFUL OR DIFFICULT. SHE HAS WORN A SPLINT IN THE PAST YET HAS NOT WORN IN ABOUT A YEAR. HER PAIN IS GREATEST IN HER BASAL JOINT OF HER THUMB WELL THE IPs OF D2 AND D3. A 61% LIMITATION IS REPORTED PER THE QUICK DASH ASSESSMENT. ONGOING SKILLED OT IS WARRANTED TO ADDRESS JOINT PROTECTION, ROM, STRENGTH, ACTIVITY MODIFICATION FOR ADLs AND IADLs, WELL IMPROVING QOL. STG Duration: 2 WEEKS Short Term Goals: IND HEP IND USE OF HEAT, INCLUDING HOME PARAFFIN UNIT IND JOINT PROTECTION AND ACTIVITY MODIFICATION IND ORTHOSIS USE REPORT <6/10 PAIN AT REST LTG Duration: Tool And Die Maker Goals: L GRASP >25 POUNDS QUICK DASH <40% REPORT <4/10 PAIN WITH LIGHT IADLs AND LIFTING ABOUT 10 POUNDS IMPROVE COORDINATION TO FUNCTIONAL LEVEL PER FUNCTIONAL DEXTERITY TEST Frequency and Duration: The patient will be seen 2X/WEEK FOR 4 WEEKS Treatment Plan: Therapeutic Exercise Therapeutic Activity Home Exercise Program Splinting Neuro Re-ed Patient Education Desensitization/Sensory Re-ed Edema Control ADL Training Ultrasound NMES Iontophoresis Paraffin Fluidotherapy MHP Cold Packs Joint Mobilization Soft Tissue Mobilization Kinesiotaping Other (see comments) Electronically Signed By: ALBIN ROUSE 09/10/21 Reviewed/agree with student documentation: N/A Therapist: Please sign and return to therapist, Thank you for your referral.
--- NOTE | 2021-10-01 14:50 | MHC.OT.DC ---
[address] [phone] F: [phone] Occupational Therapy Discharge Note Provider: Mecca Jo Diagnosis: PAIN IN LEFT HAND Date of Evaluation: 09/10/21 Date of Discharge: 10/01/21 Treatments to Date: 2 Cancellations to Date: 1 No Shows to Date: 4 Discharge Status: Improved Function Patient Elected to Stop Recommend MD Follow-up Visit Non-compliance Discharge Summary: TRENT WAS SEEN FOR HER INITIAL EVALUATION AND ONE ADDITIONAL VISIT. A CUSTOM CMC ORTHOSIS WAS FABRICATED FOR HER LEFT HAND, PROVIDED WITH A HEP, AND EDUCATED ON JOINT PROTECTION AND ACTIVITY MODIFICATION. ADDITIONALLY, SHE WAS PROVIDED WITH INFORMATION ON A HOME PARAFFIN UNIT. UNFORTUNATELY, Pt HAD TO DISCONTINUE OT DUE TO ASTHMA EXACERBATION. SHE REPORTS GOOD UNDERSTANDING OF HEP AND REPORTS GOOD FIT TO NEWLY FABRICATED ORTHOSIS. D/C OT SERVICES. Electronically Signed By: JEFF ROUSE/L Reviewed/agree with student documentation: N/A Therapist: JEFF PEDERSON/Taz CHT Please Sign and return to therapist, thank you for your referral.
== END 2021-10-01 14:50 | disposition home or self-care (01) ==
LOC: HO.OT 11:00
PROVIDERS: PCP Nurse Practitioner Family; Visit Provider Nurse Practitioner Family
DX: M79.642 Pain in left hand (principal)
CPT/HCPCS: 29130; 97018; 97110; 97165; 97760

== ENCOUNTER 2021-10-04 14:11 | Outpatient (REF) | payer MEDICAID, SELFPAY ==
--- NOTE | ~2021-10-04 | MM_ITS ---
EXAMINATION: MM SCREENING DIGITAL BREAST TOMOSYNTHESIS, BILATERAL CLINICAL INFORMATION: Screening. Asymptomatic. The lifetime risk of breast cancer based on the Tyrer-Cuzick Model is 11.3%. COMPARISON: Mammography: September 26, 2020 and studies dating back to February 03, 2013 TECHNIQUE: Digital breast tomosynthesis is performed in both the craniocaudal and mediolateral oblique views along with computer-aided detection (CAD). Synthesized 2D images are generated from the tomosynthesis. FINDINGS: There are scattered areas of fibroglandular density (ACR BI-RADS breast composition Category b). There are no significant masses, abnormal calcifications, or other abnormalities. MM/MM tomosynthesis screening BI IMPRESSION: There are no significant changes from prior study. ASSESSMENT: BI-RADS 1: Negative RECOMMENDATION: Routine annual mammography screening. This patient's information was entered into a reminder system with a target due date for their next mammogram.
== END 2021-10-04 14:12 | disposition home or self-care (01) ==
LOC: HO.MAMMO 14:11
PROVIDERS: PCP Nurse Practitioner Family; Visit Provider Nurse Practitioner Family
DX: Z12.31 Encounter for screening mammogram for malignant neoplasm of breast (principal)
CPT/HCPCS: 77063; 77067

== ENCOUNTER → 2021-10-08 10:35 | Outpatient (BNVA) | payer MEDICAID, SELFPAY | PROVIDERS: PCP Nurse Practitioner Family; Visit Provider Internal Medicine Pulmonary Disease | DX: J45.909 Unspecified asthma, uncomplicated (principal) | CPT/HCPCS: 99211 ==

== ENCOUNTER 2021-11-04 17:07 | Inpatient (IN) | payer MEDICAID, SELFPAY ==
[2021-11-04] VITALS (9 sets, daily range): BP systolic 114–130; BP diastolic 58–88; PULSE 71–108; RESP 16–20; TEMP 36.6–36.9; O2SAT 96–100; BMI 27.4
--- NOTE | 2021-11-04 | ECG_ITS ---
Test Reason : SOB Blood Pressure : / mmHG Vent. Rate : 073 BPM Atrial Rate : 073 BPM P-R Int : 158 ms QRS Dur : 086 ms QT Int : 394 ms P-R-T Axes : 046 004 036 degrees QTc Int : 434 ms Normal sinus rhythm Inferior infarct , age undetermined Abnormal ECG When compared with ECG of 19-AUG-2021 11:43, No significant change was found Referred By: Generic ED Physician Electronically Signed By:DEANNA SALAZAR MD
--- NOTE | ~2021-11-04 | XR_ITS ---
EXAMINATION: XR CHEST CLINICAL INFORMATION: Asthma with difficulty breathing COMPARISON: 09/27/2021 TECHNIQUE: Frontal view of the chest was obtained. FINDINGS: No significant abnormality is noted involving the heart, lungs, mediastinum, bony thorax or soft tissues. Again seen is a thoracolumbar scoliosis. Incidentally noted anchor suture right shoulder. XR/XR chest 1V IMPRESSION: No acute intrathoracic disease.
--- NOTE | 2021-11-04 18:01 | ED_ITS ---
HPI - Asthma General Chief Complaint: Asthma <APOLINAR Ritter - Last Filed: 11/04/21 19:24> Stated Complaint: asthma/diff breathing <APOLINAR Ritter - Last Filed: 11/04/21 19:24> Time Seen by Provider: 11/04/21 17:47 <APOLINAR Ritter - Last Filed: 11/04/21 19:24> Source: patient <APOLINAR Ritter - Last Filed: 11/04/21 19:24> Mode of arrival: ambulatory <APOLINAR Ritter - Last Filed: 11/04/21 19:24> Limitations: no limitations <APOLINAR Ritter Last Filed: 11/04/21 19:24> History of Present Illness HPI Narrative: Pt with worsening asthma since Friday, using albuterol inhaler and nebulizer at home with little relief. Worse this evening and came into ED. <APOLINAR Ritter Last Filed: 11/04/21 19:24> Related Data Home Medications: Home Medications Medication Instructions Recorded Confirmed cetirizine 10 mg tablet 10 mg PO DAILY PRN 11/30/20 10/08/21 diclofenac sodium 1 % topical gel 2 g TOPICAL QID 11/30/20 10/08/21 docusate sodium 100 mg capsule 100 mg PO BID 11/30/20 10/08/21 (DOK) duloxetine 60 mg capsule,delayed 60 mg PO DAILY 11/30/20 10/08/21 release ergocalciferol (vitamin D2) 1,250 1,250 mcg PO REAL 11/30/20 10/08/21 mcg (50,000 unit) capsule fluticasone propionate 50 2 spray INTRANASAL DAILY 11/30/20 10/08/21 mcg/actuation nasal spray,suspension ipratropium bromide 17 2 puff INHALATION QID PRN 11/30/20 10/08/21 mcg/actuation HFA aerosol inhaler (Atrovent HFA) lidocaine 5 % topical patch 1 patch TOPICAL DAILY 11/30/20 10/08/21 (Lidoderm) melatonin 5 mg tablet 5 - 10 mg PO BEDTIME PRN 11/30/20 10/08/21 montelukast 10 mg tablet 10 mg PO BEDTIME 11/30/20 10/08/21 omeprazole 20 mg capsule,delayed 20 mg PO BID 11/30/20 10/08/21 release polyethylene glycol 3350 17 17 g PO DAILY 11/30/20 10/08/21 gram/dose oral powder simvastatin 40 mg tablet 40 mg PO BEDTIME 11/30/20 10/08/21 Previous Rx's Medication Instructions Recorded naproxen 500 mg tablet 500 mg PO BID PRN #60 tab 12/20/20 cyclobenzaprine 5 mg tablet 5 mg PO BEDTIME PRN #90 tab 02/02/21 gabapentin 300 mg capsule 300 mg PO BEDTIME #90 cap 06/05/21 albuterol sulfate 2.5 mg (3 mL) INHALATION Q4-6H PRN 08/04/21 #90 ml albuterol sulfate 90 mcg/actuation 2 puff INHALATION Q4-6H PRN #8.5 g 08/04/21 aerosol inhaler (ProAir HFA) fluticasone furoate 200 1 inh INHALATION DAILY 30 Days #1 09/19/21 mcg-vilanterol 25 mcg/dose ea inhalation powder (Breo Ellipta) umeclidinium 62.5 mcg/actuation 1 inh INHALATION DAILY 30 Days #1 09/28/21 blister powder for inhalation ea (Incruse Ellipta) dupilumab 300 mg/2 mL subcutaneous See Rx Instructions SUBCUT Q2W 28 10/02/21 pen injector (Dupixent) Days #4 ml <APOLINAR Ritter - Last Filed: 11/04/21 19:24> Allergies/Adverse Reactions: Allergies Allergy/AdvReac Type Severity Reaction Status Date / Time pollen extracts [POLLEN] Allergy Unknown RUNNY Verified 11/04/21 17:21 NOSE, ITCHY EYES seasonl allergies Allergy Unknown asthma Uncoded 11/04/21 17:21 attacks <APOLINAR Ritter - Last Filed: 11/04/21 19:24> Review of Systems Review of Systems: Constitutional : No trauma, No Weight loss, No Fever, No Chills, ENT/Mouth : No Hearing loss, No Ear Pain, No Nasal Congestion, No Sinus Pain, No Hoarseness, No sore throat, No Rhinorrhea, No Swallowing Difficulty Cardiovascular : No Chest Pain, positive dyspnea Respiratory : No Cough, No Dyspnea Gastrointestinal : No Nausea, No Vomiting, No Diarrhea, No abdominal Pain, Genitourinary : No Dysuria, No Urinary Frequency, No Hematuria, No Urinary or B owel Incontinence/retention? Musculoskeletal : No neck pain, No joint stiffness, No joint swelling Skin : No Skin Lesions, No rash or signs of infection Neuro : No Weakness, No radiation, No Numbness, No Paresthesias, No headache, n <APOLINAR Ritter - Last Filed: 11/04/21 19:24> Yes all other systems are reviewed and are negative <APOLINAR Ritter - Last Filed: 11/04/21 19:24> [facility] Past Medical History Attestation statement: The following information was validated with the patient. <APOLINAR Ritter - Last Filed: 11/04/21 19:24> Medical History: Medical History Anxiety Arthritis Asthma Depression Migraine headache <APOLINAR Ritter - Last Filed: 11/04/21 19:24> Surgical History: Surgical History Hx of cholecystectomy Hx of elbow surgery Hx of hysterectomy <APOLINAR Ritter - Last Filed: 11/04/21 19:24> Social History Social History: Social History Household Members: Spouse Housing: House Do you presently have visiting nurse or other home services: No Alcohol intake: unknown Patient Tobacco Use Status: Never used Tobacco Advance Directives: No Advance Directives Information Provided: No Patient : No service: No Current occupational status: disabled Current occupation: rt handed <APOLINAR Ritter - Last Filed: 11/04/21 19:24> Physical Exam Vital Signs: Vital Signs: Last Vital Signs Temp 97.9 F 11/04/21 21:08 Pulse 83 11/04/21 21:08 Resp 18 11/04/21 21:08 BP 130/58 L 11/04/21 21:08 Pulse Ox 97 11/04/21 21:08 BMI result Body Mass Index 27.4 vital signs have been reviewed as normal and appeared to be correct.? Blood pressure normal.? Heart rate normal.? Respiration rate normal.? Temperature normal.? Oxygen saturation normal. <APOLINAR Ritter - Last Filed: 11/04/21 19:24> Vital Signs: Last Vital Signs Temp 97.9 F 11/04/21 21:08 Pulse 83 11/04/21 21:08 Resp 18 11/04/21 21:08 BP 130/58 L 11/04/21 21:08 Pulse Ox 97 11/04/21 21:08 BMI result Body Mass Index 27.4 <APOLINAR Zaidi - Last Filed: 11/04/21 21:17> Appearance: Alert. Oriented X3. No acute distress. ? Head: Normal external exam ENT: Pharynx normal. Uvula midline. Moist mucous membranes. ? No trismus noted.? No drooling noted.? No muffled voice noted. Neck: Normal inspection. Neck supple. Normal ROM. No adenopathy. No meningeal signs. No neck mass noted. CVS: Normal heart rate and rhythm. Heart sound normal. No murmurs noted. Respiratory: Experatory wheezing, minimal air movement, patient talking in raspy voice, positive accessory muscle use. Abdomen: Soft and nontender. Skin: Skin warm and dry.? Normal skin color.? Normal skin turgor. No rashes/lesions/lacerations noted. Extremities: No lower extremity edema. ? Extremities exhibit normal range of motion.? Extremities nontender. Normal gait Neuro: Oriented X 3.? No motor deficit noted. No sensory deficit noted. <APOLINAR Ritter - Last Filed: 11/04/21 19:24> Course Course Course Narrative: 18:40 pt with minimal relief after duoneb tx. minimal air movement on exam. Mg ordered for pt. 19:00 discussed case with Radha Sahni and sign out of patient in stable condition pending IV Mag and re-eval. Plan for pt to be discharged home with prescription for prednison. <APOLINAR Ritter Last Filed: 11/04/21 19:24> Reevaluation(s) Reevaluation #1: I evaluated this patient upon auscultation there are diminished breath sounds bilaterally with little air movement. Patient is still short of breath. Will order 3rd DuoNeb. If no improvement patient will be admitted to the hospitalist team. <APOLINAR Zaidi - Last Filed: 11/04/21 21:17> Time: 21:17 <APOLINAR Zaidi - Last Filed: 11/04/21 21:17> MDM - Asthma Medical Records Attestation: I reviewed the patient's medical records. <APOLINAR Ritter - Last Filed: 11/04/21 19:24> Lab Data Attestation: I reviewed the patient's lab results. <APOLINAR Ritter - Last Filed: 11/04/21 19:24> Lab results narrative: covid neg <APOLINAR Ritter - Last Filed: 11/04/21 19:24> Result diagrams: : 11/04/21 18:09 11/04/21 18:09 <APOLINAR Ritter - Last Filed: 11/04/21 19:24> Labs: Lab Results 11/04/21 11/04/21 11/04/21 Range/Units 18:09 18:09 18:09 WBC 9.4 (4.8-10.8) X10*3/uL RBC 4.63 (4.20-5.50) X10*6/uL Hgb 13.1 (12.0-16.0) g/dl Hct 39.5 (37.0-47.0) % MCV 85.3 (80.0-98.0) fL MCH 28.3 (27.0-33.0) pg MCHC 33.2 (31.0-35.0) g/dl RDW 12.8 (11.0-16.0) % Plt Count 241 (160-400) X10*3/uL MPV 9.4 (9.4-12.3) fL Immature Gran % (Auto) 0.1 (0.0-0.4) % Neut % (Auto) 67.9 (45-73) % Lymph % (Auto) 24.9 (20-40) % [place] % (Auto) 5.1 (2-11) % Eos % (Auto) 1.1 (0-4) % Baso % (Auto) 0.9 (0-2) % Lymph # (Auto) 2.3 (1.2-4.9) X10*3/uL [place] # (Auto) 0.5 (0.1-1.2) X10*3/uL Eos # (Auto) 0.1 (0.0-0.4) X10*3/uL Baso # (Auto) 0.1 (0.0-0.2) X10*3/uL Abs Immat Gran (auto) 0.01 (0.00-0.03) X10*3/uL Absolute Neuts (auto) 6.4 (2.0-8.3) x10*3/uL Absolute Nucleated RBC 0.000 (0.0-0.012) X10*3/uL Nucleated RBC % (auto) 0.0 (0.0-0.2) /100WBC Sodium 141 (135-145) mmol/L Potassium 3.8 (3.3-5.1) mmol/L Chloride 107 (96-108) mmol/L Carbon Dioxide 27 (22-29) mmol/L Anion Gap 11 L (12-20) BUN 13 (9-16) mg/dL Creatinine 0.68 (0.5-1.4) mg/dL Estim Creat Clear Calc 85.5 Estimated GFR > 60 Random Glucose 136 H (60-115) mg/dL Calcium 9.9 (8.4-10.2) mg/dL COVID-19 (ALBINO) Negative (Negative) COVID-19 Clin Com See Note <APOLINAR Ritter - Last Filed: 11/04/21 19:24> Lab Results 11/04/21 11/04/21 11/04/21 Range/Units 18:09 18:09 18:09 WBC 9.4 (4.8-10.8) X10*3/uL RBC 4.63 (4.20-5.50) X10*6/uL Hgb 13.1 (12.0-16.0) g/dl Hct 39.5 (37.0-47.0) % MCV 85.3 (80.0-98.0) fL MCH 28.3 (27.0-33.0) pg MCHC 33.2 (31.0-35.0) g/dl RDW 12.8 (11.0-16.0) % Plt Count 241 (160-400) X10*3/uL MPV 9.4 (9.4-12.3) fL Immature Gran % (Auto) 0.1 (0.0-0.4) % Neut % (Auto) 67.9 (45-73) % Lymph % (Auto) 24.9 (20-40) % [place] % (Auto) 5.1 (2-11) % Eos % (Auto) 1.1 (0-4) % Baso % (Auto) 0.9 (0-2) % Lymph # (Auto) 2.3 (1.2-4.9) X10*3/uL [place] # (Auto) 0.5 (0.1-1.2) X10*3/uL Eos # (Auto) 0.1 (0.0-0.4) X10*3/uL Baso # (Auto) 0.1 (0.0-0.2) X10*3/uL Abs Immat Gran (auto) 0.01 (0.00-0.03) X10*3/uL Absolute Neuts (auto) 6.4 (2.0-8.3) x10*3/uL Absolute Nucleated RBC 0.000 (0.0-0.012) X10*3/uL Nucleated RBC % (auto) 0.0 (0.0-0.2) /100WBC Sodium 141 (135-145) mmol/L Potassium 3.8 (3.3-5.1) mmol/L Chloride 107 (96-108) mmol/L Carbon Dioxide 27 (22-29) mmol/L Anion Gap 11 L (12-20) BUN 13 (9-16) mg/dL Creatinine 0.68 (0.5-1.4) mg/dL Estim Creat Clear Calc 85.5 Estimated GFR > 60 Random Glucose 136 H (60-115) mg/dL Calcium 9.9 (8.4-10.2) mg/dL COVID-19 (ALBINO) Negative (Negative) COVID-19 Clin Com See Note <APOLINAR Zaidi - Last Filed: 11/04/21 21:17> ECG Data Attestation: I personally reviewed and interpreted this ECG as follows: <APOLINAR Ritter - Last Filed: 11/04/21 19:24> ECG interpretation date: 11/04/21 <APOLINAR Ritter - Last Filed: 11/04/21 19:24> Prior ECG tracings: available for review (no c hanges from previous ekg) <APOLINAR Ritter - Last Filed: 11/04/21 19:24> Interpretation: rate 75, nsr, no changes from prior ekg <APOLINAR Ritter - Last Filed: 11/04/21 19:24> Discharge Plan Discharge Clinical Impression: Asthma <APOLINAR Ritter - Last Filed: 11/04/21 19:24> Patient Disposition: Still a Patient <APOLINAR Ritter Last Filed: 11/04/21 19:24> Prescriptions: No Action cyclobenzaprine 5 mg tablet 5 mg PO BEDTIME PRN (Reason: for muscle spasm) Qty: 90 1RF gabapentin 300 mg capsule 300 mg PO BEDTIME Qty: 90 1RF Breo Ellipta 200-25 mcg/dose blister with device 1 inh inhalation DAILY 30 Days Qty: 1 6RF Dupixent Pen 300 mg/2 mL pen injector See Rx Instructions subcut Q2W 28 Days Qty: 4 12RF Rx Instructions: 600 mg initially, then 300 mg subcut every 2 weeks; cetirizine 10 mg tablet 10 mg PO DAILY PRN (Reason: Allergy Symptoms) 0RF simvastatin 40 mg tablet 40 mg PO BEDTIME 0RF lidocaine [Lidoderm] 5 % adhesive patch,medicated 1 patch topical DAILY 0RF Rx Instructions: 12 HOURS ON 12 HOURS OFF docusate sodium [DOK] 100 mg capsule 100 mg PO BID 0RF omeprazole 20 mg capsule,delayed release(DR/EC) 20 mg PO BID 0RF montelukast 10 mg tablet 10 mg PO BEDTIME 0RF ergocalciferol (vitamin D2) 1,250 mcg (50,000 unit) capsule 1,250 mcg PO REAL 0RF polyethylene glycol 3350 17 gram/dose powder 17 g PO DAILY 0RF fluticasone propionate 50 mcg/actuation spray,suspension 2 spray intranasal DAILY 0RF duloxetine 60 mg capsule,delayed release(DR/EC) 60 mg PO DAILY 0RF Atrovent HFA 17 mcg/actuation HFA aerosol inhaler 2 puff inhalation QID PRN (Reason: wheezing) 0RF diclofenac sodium 1 % gel 2 g topical QID 0RF melatonin 5 mg tablet 5 - 10 mg PO BEDTIME PRN (Reason: insomnia) 0RF albuterol sulfate [ProAir HFA] 90 mcg/actuation HFA aerosol inhaler 2 puff inhalation Q4-6H PRN (Reason: Wheezing) Qty: 8.5 0RF albuterol sulfate 2.5 mg /3 mL (0.083 %) solution for nebulization 2.5 mg inhalation Q4-6H PRN (Reason: shortness of breath or wheezing) Qty: 90 0RF naproxen 500 mg tablet 500 mg PO BID PRN (Reason: pain) Qty: 60 1RF Incruse Ellipta 62.5 mcg/actuation blister with device 1 inh inhalation DAILY 30 Days Qty: 1 6RF <APOLINAR Ritter - Last Filed: 11/04/21 19:24>
[2021-11-04 18:15] LABS: MANUAL DIFF FLAG NO
[2021-11-04] MEDS: predniSONE 20 MG TABLET 60 MG PO (18:18)
[2021-11-04 18:19] LABS: Basophils Absolute Auto 0.1 X10*3/uL (0.0-0.2); Basophils Percent Auto 0.9 % (0-2); Eosinophils Absolute Auto 0.1 X10*3/uL (0.0-0.4); Eosinophils Percent Auto 1.1 % (0-4); Hematocrit 39.5 % (37.0-47.0); Hemoglobin 13.1 g/dl (12.0-16.0); Imm Gran Abs Auto 0.01 X10*3/uL (0.00-0.03); Imm Gran Pct Auto 0.1 % (0.0-0.4); Lymphocytes Absolute Auto 2.3 X10*3/uL (1.2-4.9); Lymphocytes Percent Auto 24.9 % (20-40); Mean Corpuscular HGB Conc 33.2 g/dl (31.0-35.0); Mean Corpuscular Hemoglobin 28.3 pg (27.0-33.0); Mean Corpuscular Volume 85.3 fL (80.0-98.0); Mean Platelet Volume 9.4 fL (9.4-12.3); Monocytes Absolute Auto 0.5 X10*3/uL (0.1-1.2); Monocytes Percent Auto 5.1 % (2-11); Neutrophils Absolute Auto 6.4 x10*3/uL (2.0-8.3); Neutrophils Percent Auto 67.9 % (45-73); Platelet Count 241 X10*3/uL (160-400); Red Blood Count 4.63 X10*6/uL (4.20-5.50); Red Cell Distribution Width 12.8 % (11.0-16.0); White Blood Count 9.4 X10*3/uL (4.8-10.8)
[2021-11-04] MEDS: Albuterol/Iprat 2.5/0.5MG 3 ML AMPUL.NEB INHALE ×3 (18:27→22:03)
[2021-11-04 18:36] LABS: Anion Gap 11 (12-20); Blood Urea Nitrogen 13 mg/dL (9-16); Calcium 9.9 mg/dL (8.4-10.2); Carbon Dioxide 27 mmol/L (22-29); Chloride 107 mmol/L (96-108); Creatinine Clr Calc Pharmacy 85.5; Estimated Glomerular Filt Rate > 60; Glucose Random 136 mg/dL (60-115); Potassium 3.8 mmol/L (3.3-5.1); Sodium 141 mmol/L (135-145)
[2021-11-04 18:43] LABS: COVID-19 Test Negative (Negative); IDNOW Serial# 16C4AD1C
--- NOTE | 2021-11-04 18:53 | PC.NURSE ---
assessed patients respiratory status while bringing her back from waiting room . upper lobes tight small exchange of air noted with bilateral expiatory wheezing . provider contacted and RT for treatment . IV placed in left wrist .
[2021-11-04] MEDS: Magnesium Sulfate/H2O 2 GM/50 ML PIGGYBACK IV (19:01)
--- NOTE | 2021-11-04 21:51 | PHA.MEDREC ---
Pharmacy Consult ? Medication Reconciliation Pharmacy has completed the medication reconciliation.
[2021-11-04] MEDS: methylPREDNISolone Sod Succ 125 MG/2 ML VIAL IVPUSH (22:20)
--- NOTE | 2021-11-04 22:43 | PM.IMHP ---
History of Present Illness Date of Service: 11/04/21 Chief Complaint: Shortness of breath 56-year-old female with a past medical history of anxiety, depression, asthma, migraine headaches, arthritis presented to the hospital with a chief complaint of shortness of breath. Patient reported that since last Friday she has been having shortness of breath which has been gradually worsening. Tried to use her home inhalers with no significant improvement. Today she could not be and has severe shortness of breath decided to come to the ER for further evaluation. Also reports he has been having dry cough. Denies any fever chills. Denies any GI symptoms. Denies any specific triggers for asthma exacerbation. Denies any chest pain palpitations lightheadedness or dizziness. Review of all other systems is negative except mentioned above ER course: Per ER team patient noted to have diet lungs on examination; but patient able to finish sentences; given nebulizations, steroids. But no significant improvement noted. Hence decided to admit to the hospital for acute asthma exacerbation. [facility] Medical History Anxiety Arthritis Asthma Depression Migraine headache Surgical History Hx of cholecystectomy Hx of elbow surgery Hx of hysterectomy Social History Household Members: Spouse Housing: House Do you presently have visiting nurse or other home services: No Alcohol intake: unknown Patient Tobacco Use Status: Never used Tobacco Advance Directives: No Advance Directives Information Provided: No Patient : No service: No Current occupational status: disabled Current occupation: rt handed Meds Allergies Allergy/AdvReac Type Severity Reaction Status Date / Time pollen extracts [POLLEN] Allergy Unknown RUNNY Verified 11/04/21 17:21 NOSE, ITCHY EYES seasonl allergies Allergy Unknown asthma Uncoded 11/04/21 17:21 attacks Active Medications: Current Medications Acetaminophen (Acetaminophen 325 Mg Tablet) 650 mg PO Q6H PRN PRN Reason: Pain, Mild (Pain Scale 1-3) Albuterol/Ipratropium (Albuterol/Iprat 2.5/0.5mg 3 Ml Ampul.Neb) 3 ml INHALE RQ4H PRN PRN Reason: Shortness of Breath/Wheezing Albuterol/Ipratropium (Albuterol/Iprat 2.5/0.5mg 3 Ml Ampul.Neb) 3 ml INHALE RQ6H WHILE AWAKE [facility] Azithromycin (Azithromycin 500 Mg Tablet) 500 mg PO Q24H [facility] Enoxaparin Sodium (Enoxaparin Sodium 40 Mg/0.4 Ml Syringe) 40 mg SUBCUT Q24H [facility] Famotidine (Famotidine 20 Mg Tablet) 20 mg PO BID [facility] Melatonin (Melatonin 3 Mg Tablet) 6 mg PO BEDTIME PRN PRN Reason: Insomnia Methylprednisolone Sodium Succinate (Methylprednisolone Sod Succ 40 Mg/Ml Vial) 40 mg IVPUSH Q6H [facility] Pharmacy Consult (Consult Rx Perform Med Rec) 1 each MISCELLANE ONCE PRN PRN Reason: Consult order Senna (Sennosides 8.6 Mg Tablet) 17.2 mg PO BEDTIME PRN PRN Reason: Constipation Sodium Chloride (0.9 % Sodium Chloride Flush 3 Ml Syringe) 3 ml IVFLUSH QSHIFT [facility] Home Medications Medication Instructions Recorded Confirmed Last Taken Type cetirizine 10 mg tablet 10 mg PO DAILY PRN 11/30/20 11/04/21 11/04/21 History diclofenac sodium 1 % topical gel 2 g TOPICAL QID 11/30/20 11/04/21 11/04/21 History docusate sodium 100 mg capsule 100 mg PO BID 11/30/20 11/04/21 11/04/21 History (DOK) duloxetine 60 mg capsule,delayed 60 mg PO DAILY 11/30/20 11/04/21 11/04/21 History release ergocalciferol (vitamin D2) 1,250 1,250 mcg PO REAL 11/30/20 11/04/21 11/04/21 History mcg (50,000 unit) capsule fluticasone propionate 50 2 spray INTRANASAL DAILY 11/30/20 11/04/21 11/04/21 History mcg/actuation nasal spray,suspension ipratropium bromide 17 2 puff INHALATION QID PRN 11/30/20 11/04/21 11/04/21 History mcg/actuation HFA aerosol inhaler (Atrovent HFA) lidocaine 5 % topical patch 1 patch TOPICAL DAILY 11/30/20 11/04/21 11/04/21 History (Lidoderm) melatonin 5 mg tablet 5 - 10 mg PO BEDTIME PRN 11/30/20 11/04/21 11/03/21 History montelukast 10 mg tablet 10 mg PO BEDTIME 11/30/20 11/04/21 11/03/21 History omeprazole 20 mg capsule,delayed 20 mg PO BID 11/30/20 11/04/21 11/04/21 History release polyethylene glycol 3350 17 17 g PO DAILY 11/30/20 11/04/21 11/04/21 History gram/dose oral powder atorvastatin 40 mg tablet 1 tab PO BEDTIME 11/04/21 11/04/21 11/03/21 History baclofen 10 mg tablet 1 tab PO TID PRN 11/04/21 11/04/21 11/04/21 History Physical Exam Vital Signs and Narrative: Vital Signs: Last Vital Signs Temp 97.9 F 11/04/21 21:08 Pulse 108 H 11/04/21 22:26 Resp 20 11/04/21 22:26 BP 114/66 11/04/21 22:26 Pulse Ox 97 11/04/21 22:26 BMI result Body Mass Index 27.4 Gen: Appears be in no acute distress. Able to finish full sentence HEENT: NCAT, Moist mucosa. Pulmonary: Diminished breath sounds bilaterally CVS: Normal S1-S2 Abdomen: BS+, Soft, Nontender Extremities: Warm well perfused Neuro: Alert and awake. Results Labs CBC and Chem 7: 11/04/21 18:09 11/04/21 18:09 Labs: Laboratory Results - last 24 hr 11/04/21 11/04/21 11/04/21 18:09 18:09 18:09 MCV 85.3 MCH 28.3 MCHC 33.2 RDW 12.8 Plt Count 241 MPV 9.4 Immature Gran % (Auto) 0.1 Neut % (Auto) 67.9 Lymph % (Auto) 24.9 [place] % (Auto) 5.1 Eos % (Auto) 1.1 Baso % (Auto) 0.9 Lymph # (Auto) 2.3 [place] # (Auto) 0.5 Eos # (Auto) 0.1 Baso # (Auto) 0.1 Abs Immat Gran (auto) 0.01 Absolute Neuts (auto) 6.4 Absolute Nucleated RBC 0.000 Nucleated RBC % (auto) 0.0 Anion Gap 11 L Estim Creat Clear Calc 85.5 Estimated GFR > 60 Random Glucose 136 H Calcium 9.9 COVID-19 ([facility]) Negative COVID-19 Clin Com See Note Imaging Radiologist's Impressions: Impressions Chest X-Ray 11/04/21 17:34 IMPRESSION: No acute intrathoracic disease. Assessment and Plan (1) Asthma: Status: Acute Plan 56-year-old female with a past medical history of anxiety, depression, asthma, migraine headaches, arthritis presented to the hospital with a chief complaint of shortness of breath. Noted to be in acute asthma exacerbation. Admitted for further management. Acute asthma exacerbation: Continue Solu-Medrol IV Nebulizations standing and p.r.n. Azithromycin Cough suppressants pt is also on montelukast and dupilumab at home. Will continue. History of anxiety/depression: Continue home medications. DVT prophylaxis: Lovenox GI prophylaxis: Pepcid Code status: Full code Quality Stroke Does the patient have a stroke diagnosis?: No VTE Prior VTE?: No VTE Risk Level:: Medical - moderate - high VTE Device Contraindication: Treatment Not Indicated VTE Drug Contraindication: N/A - Med Ordered
[2021-11-04 23:31] LABS: Venous Blood Gas Refer to POC result
[2021-11-04 23:32] LABS: VBG Base Excess -2.1 mmol/L; VBG HCO3 21 mmol/L (22-26); VBG pCO2 34 mmHg; VBG pO2 64 mmHg
[2021-11-05] VITALS (11 sets, daily range): BP systolic 108–139; BP diastolic 46–68; PULSE 76–103; RESP 14–24; TEMP 36.6–36.9; O2SAT 92–98
[2021-11-05] MEDS: Enoxaparin Sodium 40 MG/0.4 ML SYRINGE SUBCUT ×2 (00:18→21:02)
[2021-11-05] MEDS: Azithromycin 500 MG TABLET PO ×2 (00:18→21:01)
[2021-11-05] MEDS: Montelukast Sodium 10 MG TABLET PO ×2 (00:20→21:01)
[2021-11-05] MEDS: Atorvastatin Calcium 40 MG TABLET PO ×2 (00:20→21:01)
[2021-11-05] MEDS: Famotidine 20 MG TABLET PO ×2 (00:21→21:01)
[2021-11-05] MEDS: Gabapentin 300 MG CAPSULE PO ×2 (00:21→21:02)
--- NOTE | 2021-11-05 01:36 | PC.NURSE ---
REPORT GIVEN TO DIMPLE TAN AND CARE TRANSFERED.
[2021-11-05] MEDS: Acetaminophen 325 MG TABLET 650 MG PO ×2 (05:11→11:35)
[2021-11-05] MEDS: methylPREDNISolone Sod Succ 40 MG/ML VIAL IVPUSH ×2 (05:11→16:42)
--- NOTE | 2021-11-05 05:14 | PC.NURSE ---
Pt requesting Tylenol for TAVERAS, medicated with Tylenol per request. Pt resting in bed, awaiting room assignment. VSS.
[2021-11-05 07:05] LABS: Basophils Percent Auto 0.1 % (0-2); Hematocrit 37.5 % (37.0-47.0); Hemoglobin 12.4 g/dl (12.0-16.0); Imm Gran Abs Auto 0.04 X10*3/uL (0.00-0.03); Imm Gran Pct Auto 0.5 % (0.0-0.4); Lymphocytes Absolute Auto 0.7 X10*3/uL (1.2-4.9); Lymphocytes Percent Auto 8.8 % (20-40); MANUAL DIFF FLAG SCAN; Mean Corpuscular HGB Conc 33.1 g/dl (31.0-35.0); Mean Corpuscular Hemoglobin 28.7 pg (27.0-33.0); Mean Corpuscular Volume 86.8 fL (80.0-98.0); Mean Platelet Volume 9.5 fL (9.4-12.3); Monocytes Percent Auto 0.5 % (2-11); Neutrophils Absolute Auto 7.4 x10*3/uL (2.0-8.3); Neutrophils Percent Auto 90.1 % (45-73); Platelet Count 250 X10*3/uL (160-400); Red Blood Count 4.32 X10*6/uL (4.20-5.50); Red Cell Distribution Width 12.7 % (11.0-16.0); SCAN SMEAR FLAG 1; White Blood Count 8.3 X10*3/uL (4.8-10.8)
[2021-11-05 07:09] LABS: Anion Gap 13 (12-20); Blood Urea Nitrogen 11 mg/dL (9-16); Calcium 9.7 mg/dL (8.4-10.2); Carbon Dioxide 21 mmol/L (22-29); Chloride 109 mmol/L (96-108); Creatinine Clr Calc Pharmacy 95.3; Estimated Glomerular Filt Rate > 60; Glucose Random 187 mg/dL (60-115); Potassium 4.1 mmol/L (3.3-5.1); Sodium 139 mmol/L (135-145)
[2021-11-05 07:13] LABS: Magnesium 2.1 mg/dL (1.6-2.6)
[2021-11-05] MEDS: Albuterol/Iprat 2.5/0.5MG 3 ML AMPUL.NEB INHALE ×3 (07:47→19:20)
[2021-11-05 08:27] LABS: SLIDE REVIEW VERIFIED
--- NOTE | 2021-11-05 09:06 | HO.PM.IMPN ---
Subjective Subjective Date of Service: 11/05/21 Interval History: cc: sob interval history: better than yesterday, still sob on minimal exertion Cardiovascular Cardiovascular: Reports no additional cardiovascular complaints Gastrointestinal Gastrointestinal: Reports no additional gastrointestinal complaints Physical Exam Vital Signs: Vital Signs: Last Vital Signs Temp 97.9 F 11/04/21 21:08 Pulse 76 11/05/21 07:49 Resp 16 11/05/21 07:49 BP 114/46 L 11/05/21 06:19 Pulse Ox 98 11/05/21 06:19 BMI result Body Mass Index 27.4 General: AO X 3, anxious Resp: wheezing bilateral, mild accessory muscles used CVS: S1,S2,RRR GI: soft, non tender, non distended Neuro: motor grossly intact, alert Psych: appropriate affect, appropriate insight Objective Data Active Medications Acetaminophen (Acetaminophen 325 Mg Tablet) 650 mg PO Q6H PRN PRN Reason: Pain, Mild (Pain Scale 1-3) Last Admin: 11/05/21 05:11 Dose: 650 mg Documented by: MARCO ANTONIO Albuterol/Ipratropium (Albuterol/Iprat 2.5/0.5mg 3 Ml Ampul.Neb) 3 ml INHALE RQ4H PRN PRN Reason: Shortness of Breath/Wheezing Albuterol/Ipratropium (Albuterol/Iprat 2.5/0.5mg 3 Ml Ampul.Neb) 3 ml INHALE RQ6H WHILE AWAKE [facility] Last Admin: 11/05/21 07:47 Dose: 3 ml Documented by: TAMIKO Atorvastatin Calcium (Atorvastatin Calcium 40 Mg Tablet) 40 mg PO BEDTIME [facility] Last Admin: 11/05/21 00:20 Dose: 40 mg Documented by: MARLENE Azithromycin (Azithromycin 500 Mg Tablet) 500 mg PO Q24H [facility] Last Admin: 11/05/21 00:18 Dose: 500 mg Documented by: MARLENE Baclofen (Baclofen 10 Mg Tablet) 10 mg PO TID PRN PRN Reason: Spasms Duloxetine HCl (Duloxetine Hcl 60 Mg Capsule.Dr) 60 mg PO DAILY [facility] Enoxaparin Sodium (Enoxaparin Sodium 40 Mg/0.4 Ml Syringe) 40 mg SUBCUT Q24H [facility] Last Admin: 11/05/21 00:18 Dose: 40 mg Documented by: MARLENE Famotidine (Famotidine 20 Mg Tablet) 20 mg PO BID [facility] Last Admin: 11/05/21 00:21 Dose: 20 mg Documented by: MARLENE Gabapentin (Gabapentin 300 Mg Capsule) 300 mg PO BEDTIME [facility] Last Admin: 11/05/21 00:21 Dose: 300 mg Documented by: MARLENE Loratadine (Loratadine 10 Mg Tablet) 10 mg PO DAILY PRN PRN Reason: Allergy Symptoms Melatonin (Melatonin 3 Mg Tablet) 6 mg PO BEDTIME PRN PRN Reason: Insomnia Methylprednisolone Sodium Succinate (Methylprednisolone Sod Succ 40 Mg/Ml Vial) 40 mg IVPUSH Q12H [facility] Montelukast Sodium (Montelukast Sodium 10 Mg Tablet) 10 mg PO BEDTIME [facility] Last Admin: 11/05/21 00:20 Dose: 10 mg Documented by: MARLENE Non-Formulary Medication (Dupilumab [Dupixent Pen]) 300 mg SUBCUT Q14D [facility] Pharmacy Consult (Consult Rx Perform Med Rec) 1 each MISCELLANE ONCE PRN PRN Reason: Consult order Senna (Sennosides 8.6 Mg Tablet) 17.2 mg PO BEDTIME PRN PRN Reason: Constipation Sodium Chloride (0.9 % Sodium Chloride Flush 3 Ml Syringe) 3 ml IVFLUSH QSHIFT [facility] Last Admin: 11/05/21 00:05 Dose: Not Given Documented by: MARLENE Non-Admin Reason: Previously Administered Labs CBC & Chem 7: 11/05/21 06:46 11/05/21 06:46 Labs: Laboratory Results - last 24 hr 11/04/21 11/04/21 11/04/21 18:09 18:09 18:09 MCV 85.3 MCH 28.3 MCHC 33.2 RDW 12.8 Plt Count 241 MPV 9.4 Immature Gran % (Auto) 0.1 Neut % (Auto) 67.9 Lymph % (Auto) 24.9 Bowman % (Auto) 5.1 Eos % (Auto) 1.1 Baso % (Auto) 0.9 Lymph # (Auto) 2.3 Bowman # (Auto) 0.5 Eos # (Auto) 0.1 Baso # (Auto) 0.1 Abs Immat Gran (auto) 0.01 Absolute Neuts (auto) 6.4 Absolute Nucleated RBC 0.000 Nucleated RBC % (auto) 0.0 Smear Tech's Comments VBG pH VBG pCO2 VBG pO2 VBG HCO3 VBG O2 Saturation VBG Base Excess Anion Gap 11 L Estim Creat Clear Calc 85.5 Estimated GFR > 60 Random Glucose 136 H Calcium 9.9 Magnesium COVID-19 ([facility]) Negative COVID-19 Clin Com See Note 11/04/21 11/05/21 11/05/21 23:24 06:46 06:46 MCV 86.8 MCH 28.7 MCHC 33.1 RDW 12.7 Plt Count 250 MPV 9.5 Immature Gran % (Auto) 0.5 H Neut % (Auto) 90.1 H Lymph % (Auto) 8.8 L Bowman % (Auto) 0.5 L Eos % (Auto) 0.0 Baso % (Auto) 0.1 Lymph # (Auto) 0.7 L Bowman # (Auto) 0.0 L Eos # (Auto) 0.0 Baso # (Auto) 0.0 Abs Immat Gran (auto) 0.04 H Absolute Neuts (auto) 7.4 Absolute Nucleated RBC 0.000 Nucleated RBC % (auto) 0.0 Smear Tech's Comments VERIFIED VBG pH 7.40 VBG pCO2 34 VBG pO2 64 VBG HCO3 21 L VBG O2 Saturation 90.0 VBG Base Excess -2.1 Anion Gap 13 Estim Creat Clear Calc 95.3 Estimated GFR > 60 Random Glucose 187 H Calcium 9.7 Magnesium COVID-19 ([facility]) COVID-19 Clin Com 11/05/21 06:46 MCV MCH MCHC RDW Plt Count MPV Immature Gran % (Auto) Neut % (Auto) Lymph % (Auto) Bowman % (Auto) Eos % (Auto) Baso % (Auto) Lymph # (Auto) Bowman # (Auto) Eos # (Auto) Baso # (Auto) Abs Immat Gran (auto) Absolute Neuts (auto) Absolute Nucleated RBC Nucleated RBC % (auto) Smear Tech's Comments VBG pH VBG pCO2 VBG pO2 VBG HCO3 VBG O2 Saturation VBG Base Excess Anion Gap Estim Creat Clear Calc Estimated GFR Random Glucose Calcium Magnesium 2.1 COVID-19 ([facility]) COVID-19 Clin Com Assessment and Plan (1) Asthma: Status: Acute Plan 56F presented with sob moderate persistent asthma with acute exacerbation iv solumedrol nebs azithro singulair depression and anxiety cymbalta hld statin dvt prophylaxis - lovenox full code reason for continued hospitalization: continues to be sob at rest and worse on minimal exertion, not at baseline. Quality Stroke Does the patient have a stroke diagnosis?: No VTE Prior VTE?: No VTE Risk Level:: Medical - moderate - high VTE Device Contraindication: Treatment Not Indicated VTE Drug Contraindication: N/A - Med Ordered
[2021-11-05] MEDS: DULoxetine HCl 60 MG CAPSULE.DR PO (09:23)
[2021-11-05] MEDS: 0.9 % Sodium Chloride Flush 3 ML SYRINGE IVFLUSH ×3 (09:23→21:03)
--- NOTE | 2021-11-05 09:26 | PC.NURSE ---
pt alert and oriented, skin appropriate for ethnicity, respirations even and unlabored, pt's voice is horse, ls diminished on the bases, pt reports having a headache 8/10 some improvement with the tylenol but not much and having some chest tightness/pressure 6/10
--- NOTE | 2021-11-05 11:36 | PC.NURSE ---
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
--- NOTE | 2021-11-05 12:36 | MHC.CM.PN ---
PT REPORTS SHE LIVES AT HOME WITH HER S/O PT REPORTS SHE HAS [employer] ONLY AND USES A CANE TO AMBULATE PT REPORTS SHE DID HAVE A NEBULIZER HOWEVER IT IS NOT WORKING SO SHE IS USING HER DAUGHTERS CM ENCOURAGED HER TO CONTACT [facility] AND HER PCP ABOUT GETTING IT REPAIRED/REPLACED PT REPORTS HER PCP IS EMRE JC AT [facility] AND SHE HAS A HCP ON FILE PT SAYS SHE IS VACCINATED AGAINST COVID-19 X 3 CURRENT DC PLAN IS HOME WITH RESUMPTION OF [employer] [facility] TO TRANSPORT
--- NOTE | 2021-11-05 16:43 | PC.NURSE ---
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
--- NOTE | 2021-11-05 18:11 | PC.NURSE ---
attempted to call in report, nurse with a pt - will call back.
--- NOTE | 2021-11-05 18:57 | PC.NURSE ---
called back to give report, nurse unavailable - will call back.
--- NOTE | 2021-11-05 19:08 | PC.NURSE ---
RN-RN report given, pt transferring to 380.
[2021-11-06] VITALS (8 sets, daily range): BP systolic 104–124; BP diastolic 60–76; PULSE 71–96; RESP 14–18; TEMP 36.2–36.8; O2SAT 94–951
[2021-11-06] MEDS: methylPREDNISolone Sod Succ 40 MG/ML VIAL IVPUSH ×2 (06:03→17:41)
[2021-11-06 06:57] LABS: Hematocrit 37.6 % (37.0-47.0); Mean Corpuscular HGB Conc 31.9 g/dl (31.0-35.0); Mean Corpuscular Hemoglobin 28.4 pg (27.0-33.0); Mean Corpuscular Volume 88.9 fL (80.0-98.0); Mean Platelet Volume 9.6 fL (9.4-12.3); Platelet Count 272 X10*3/uL (160-400); Red Blood Count 4.23 X10*6/uL (4.20-5.50); Red Cell Distribution Width 13.1 % (11.0-16.0); White Blood Count 22.1 X10*3/uL (4.8-10.8)
[2021-11-06 07:12] LABS: Anion Gap 13 (12-20); Blood Urea Nitrogen 15 mg/dL (9-16); Calcium 9.7 mg/dL (8.4-10.2); Carbon Dioxide 26 mmol/L (22-29); Chloride 106 mmol/L (96-108); Creatinine Clr Calc Pharmacy 92.2; Estimated Glomerular Filt Rate > 60; Glucose Fasting 120 mg/dL (60-99); Potassium 4.6 mmol/L (3.3-5.1); Sodium 140 mmol/L (135-145)
[2021-11-06] MEDS: DULoxetine HCl 60 MG CAPSULE.DR PO (08:01)
[2021-11-06] MEDS: 0.9 % Sodium Chloride Flush 3 ML SYRINGE IVFLUSH ×3 (08:01→20:48)
[2021-11-06] MEDS: Famotidine 20 MG TABLET PO ×2 (08:01→20:47)
[2021-11-06] MEDS: Albuterol/Iprat 2.5/0.5MG 3 ML AMPUL.NEB INHALE ×3 (08:37→20:14)
--- NOTE | 2021-11-06 09:20 | P.PNIM_ITS ---
Subjective Subjective Date of Service: 11/06/21 Interval History: cc: sob interval history: improved, but still sob on minimal exertion, afraid to go home. Cardiovascular Cardiovascular: Reports no additional cardiovascular complaints Gastrointestinal Gastrointestinal: Reports no additional gastrointestinal complaints Physical Exam Vital Signs: Vital Signs: Last Vital Signs Temp 98.3 F 11/06/21 07:16 Pulse 77 11/06/21 08:37 Resp 18 11/06/21 08:37 BP 105/64 11/06/21 07:16 Pulse Ox 94 11/06/21 07:16 BMI result Body Mass Index 27.4 General: AO X 3, anxious appearing Resp: CTA bilateral, no accessory muscles used CVS: S1,S2,RRR GI: soft, non tender, non distended Neuro: motor grossly intact, alert Psych: appropriate affect, appropriate insight Objective Data Active Medications Acetaminophen (Acetaminophen 325 Mg Tablet) 650 mg PO Q6H PRN PRN Reason: Pain, Mild (Pain Scale 1-3) Last Admin: 11/05/21 11:35 Dose: 650 mg Documented by: BRIAN Albuterol/Ipratropium (Albuterol/Iprat 2.5/0.5mg 3 Ml Ampul.Neb) 3 ml INHALE RQ4H PRN PRN Reason: Shortness of Breath/Wheezing Albuterol/Ipratropium (Albuterol/Iprat 2.5/0.5mg 3 Ml Ampul.Neb) 3 ml INHALE RQ6H WHILE AWAKE [facility] Last Admin: 11/06/21 08:37 Dose: 3 ml Documented by: ARIAS Atorvastatin Calcium (Atorvastatin Calcium 40 Mg Tablet) 40 mg PO BEDTIME [facility] Last Admin: 11/05/21 21:01 Dose: 40 mg Documented by: INGRIS Azithromycin (Azithromycin 500 Mg Tablet) 500 mg PO Q24H [facility] Last Admin: 11/05/21 21:01 Dose: 500 mg Documented by: INGRIS Baclofen (Baclofen 10 Mg Tablet) 10 mg PO TID PRN PRN Reason: Spasms Duloxetine HCl (Duloxetine Hcl 60 Mg Capsule.) 60 mg PO DAILY [facility] Last Admin: 11/06/21 08:01 Dose: 60 mg Documented by: DELMER Enoxaparin Sodium (Enoxaparin Sodium 40 Mg/0.4 Ml Syringe) 40 mg SUBCUT Q24H [facility] Last Admin: 11/05/21 21:02 Dose: 40 mg Documented by: INGRIS Famotidine (Famotidine 20 Mg Tablet) 20 mg PO BID [facility] Last Admin: 11/06/21 08:01 Dose: 20 mg Documented by: DELMER Gabapentin (Gabapentin 300 Mg Capsule) 300 mg PO BEDTIME [facility] Last Admin: 11/05/21 21:02 Dose: 300 mg Documented by: INGRIS Loratadine (Loratadine 10 Mg Tablet) 10 mg PO DAILY PRN PRN Reason: Allergy Symptoms Melatonin (Melatonin 3 Mg Tablet) 6 mg PO BEDTIME PRN PRN Reason: Insomnia Methylprednisolone Sodium Succinate (Methylprednisolone Sod Succ 40 Mg/Ml Vial) 40 mg IVPUSH Q12H [facility] Last Admin: 11/06/21 06:03 Dose: 40 mg Documented by: INGRIS Montelukast Sodium (Montelukast Sodium 10 Mg Tablet) 10 mg PO BEDTIME [facility] Last Admin: 11/05/21 21:01 Dose: 10 mg Documented by: INGRIS Pharmacy Consult (Consult Rx Perform Med Rec) 1 each MISCELLANE ONCE PRN PRN Reason: Consult order Senna (Sennosides 8.6 Mg Tablet) 17.2 mg PO BEDTIME PRN PRN Reason: Constipation Sodium Chloride (0.9 % Sodium Chloride Flush 3 Ml Syringe) 3 ml IVFLUSH QSHIFT [facility] Last Admin: 11/06/21 08:01 Dose: 3 ml Documented by: DELMER Labs CBC & Chem 7: 11/06/21 06:45 11/06/21 06:45 Labs: Laboratory Results - last 24 hr 11/06/21 11/06/21 06:45 06:45 MCV 88.9 MCH 28.4 MCHC 31.9 RDW 13.1 Plt Count 272 MPV 9.6 Absolute Nucleated RBC 0.000 Nucleated RBC % (auto) 0.0 Anion Gap 13 Estim Creat Clear Calc 92.2 Estimated GFR > 60 Fasting Glucose 120 H Calcium 9.7 Assessment and Plan (1) Asthma: Status: Acute Plan 56F presented with sob moderate persistent asthma with acute exacerbation continue iv solumedrol nebs azithro singulair leukocytosis due to steroids depression and anxiety cymbalta hld statin dvt prophylaxis - lovenox full code reason for continued hospitalization: continues to be sob on minimal exertion, not at baseline. concern for decompensation at home. Quality Stroke Does the patient have a stroke diagnosis?: No VTE Prior VTE?: No VTE Risk Level:: Medical - moderate - high VTE Device Contraindication: Treatment Not Indicated VTE Drug Contraindication: N/A - Med Ordered
[2021-11-06] MEDS: Oxymetazoline HCl 0.05 % Nasal 15 ML SPRAY 2 SPRAY NOSTRIL-B (10:22)
--- NOTE | 2021-11-06 12:51 | MHC.CM.NN ---
PLAN IS FOR PATIENT TO RETURN HOME ON FRIDAY - FAMILY TRANSPORT. PATIENT AGREES WITH PLAN
[2021-11-06] MEDS: Enoxaparin Sodium 40 MG/0.4 ML SYRINGE SUBCUT (20:47)
[2021-11-06] MEDS: Gabapentin 300 MG CAPSULE PO (20:47)
[2021-11-06] MEDS: Azithromycin 500 MG TABLET PO (20:47)
[2021-11-06] MEDS: Atorvastatin Calcium 40 MG TABLET PO (20:47)
[2021-11-06] MEDS: Montelukast Sodium 10 MG TABLET PO (20:47)
[2021-11-07] VITALS: BP 118/66; PULSE 88; RESP 14; TEMP 36.5; O2SAT 93
[2021-11-07 03:38] VITALS: BP 112/59; PULSE 75; RESP 14; TEMP 36.6; O2SAT 94
[2021-11-07] MEDS: methylPREDNISolone Sod Succ 40 MG/ML VIAL IVPUSH (05:47)
[2021-11-07 07:08] VITALS: BP 121/73; PULSE 66; RESP 16; TEMP 37.1; O2SAT 95
[2021-11-07] MEDS: Albuterol/Iprat 2.5/0.5MG 3 ML AMPUL.NEB INHALE (08:06)
[2021-11-07 08:08] VITALS: PULSE 68; RESP 18; O2SAT 96
[2021-11-07] MEDS: 0.9 % Sodium Chloride Flush 3 ML SYRINGE IVFLUSH (08:24)
[2021-11-07] MEDS: DULoxetine HCl 60 MG CAPSULE.DR PO (08:24)
[2021-11-07] MEDS: Famotidine 20 MG TABLET PO (08:24)
--- NOTE | 2021-11-07 09:07 | PM.DS ---
DS: Providers Provider Date of Service: 11/07/21 Date of admission: 11/04/21 22:39 Primary care physician: Unknown Physician DS: Diagnosis Discharge Diagnosis (1) Asthma: Status: Acute DS: Summary Hospital Course Hospital Course: From initial HPI: Chief Complaint: Shortness of breath 56-year-old female with a past medical history of anxiety, depression, asthma, migraine headaches, arthritis presented to the hospital with a chief complaint of shortness of breath.? Patient reported that since last Friday she has been having shortness of breath which has been gradually worsening.? Tried to use her home inhalers with no significant improvement.? Today she could not be and has severe shortness of breath decided to come to the ER for further evaluation.? Also reports he has been having dry cough.? Denies any fever chills.? Denies any GI symptoms.? Denies any specific triggers for asthma exacerbation.? Denies any chest pain palpitations lightheadedness or dizziness. Review of all other systems is negative except mentioned above ER course: Per ER team patient noted to have diet lungs on examination; but patient able to finish sentences; given nebulizations, steroids.? But no significant improvement noted.? Hence decided to admit to the hospital for acute asthma exacerbation. Hospital course: patient was admitted for moderate persistent asthma with acute exacerbation. She was treated with IV Solu-Medrol, azithromycin, bronchodilators. She was noted to have leukocytosis which was secondary to steroids. Her symptoms slowly improved and at time of discharge she is now feeling much better and will be discharged on 5 more days of prednisone 40 mg daily. She will follow up with Pulmonary as outpatient. For depression anxiety she will continue Cymbalta, for hyperlipidemia she will continue statin. Time Spent with Patient Time attestation: Total time spent providing and/or coordinating discharge services: Discharge coordination time: Greater than 30 minutes Quality: Stroke Does the patient have a stroke diagnosis?: No Physical Exam Vital Signs: Vital Signs: Last Vital Signs Temp 98.7 F 11/07/21 07:08 Pulse 68 11/07/21 08:08 Resp 18 11/07/21 08:08 BP 121/73 11/07/21 07:08 Pulse Ox 95 11/07/21 07:08 BMI result Body Mass Index 27.4 General: AO X 3, no acute distress Resp: CTA bilateral, no accessory muscles used CVS: S1,S2,RRR GI: soft, non tender, non distended Neuro: motor grossly intact, alert Psych: appropriate affect, appropriate insight DS: Data Data Completed and Pending Completed studies during hospitalization [Text1]: Procedures Introduction of Remdesivir Anti-infective into Peripheral Vein, Percutaneous Approach, [employer] 5 (11/30/20) Discharge Plan Discharge Patient Disposition: Home, Self-Care Discharge Diagnosis: asthma Referrals: Physician,Unknown J [Primary Care Provider] - 1 Week Discharge Medications: New prednisone 20 mg tablet 40 mg PO DAILY Qty: 10 0RF Continued gabapentin 300 mg capsule 300 mg PO BEDTIME Qty: 90 1RF Breo Ellipta 200-25 mcg/dose blister with device 1 inh inhalation DAILY 30 Days Qty: 1 6RF Dupixent Pen 300 mg/2 mL pen injector See Rx Instructions subcut Q2W 28 Days Qty: 4 12RF Rx Instructions: 600 mg initially, then 300 mg subcut every 2 weeks; cetirizine 10 mg tablet 10 mg PO DAILY PRN (Reason: Allergy Symptoms) 0RF lidocaine [Lidoderm] 5 % adhesive patch,medicated 1 patch topical DAILY 0RF Rx Instructions: 12 HOURS ON 12 HOURS OFF docusate sodium [DOK] 100 mg capsule 100 mg PO BID 0RF omeprazole 20 mg capsule,delayed release(DR/EC) 20 mg PO BID 0RF montelukast 10 mg tablet 10 mg PO BEDTIME 0RF ergocalciferol (vitamin D2) 1,250 mcg (50,000 unit) capsule 1,250 mcg PO REAL 0RF polyethylene glycol 3350 17 gram/dose powder 17 g PO DAILY 0RF fluticasone propionate 50 mcg/actuation spray,suspension 2 spray intranasal DAILY 0RF duloxetine 60 mg capsule,delayed release(DR/EC) 60 mg PO DAILY 0RF Atrovent HFA 17 mcg/actuation HFA aerosol inhaler 2 puff inhalation QID PRN (Reason: wheezing) 0RF diclofenac sodium 1 % gel 2 g topical QID 0RF melatonin 5 mg tablet 5 - 10 mg PO BEDTIME PRN (Reason: insomnia) 0RF albuterol sulfate [ProAir HFA] 90 mcg/actuation HFA aerosol inhaler 2 puff inhalation Q4-6H PRN (Reason: Wheezing) Qty: 8.5 0RF albuterol sulfate 2.5 mg /3 mL (0.083 %) solution for nebulization 2.5 mg inhalation Q4-6H PRN (Reason: shortness of breath or wheezing) Qty: 90 0RF atorvastatin 40 mg tablet 1 tab PO BEDTIME 0RF baclofen 10 mg tablet 1 tab PO TID PRN (Reason: Spasms) 0RF naproxen 500 mg tablet 500 mg PO BID PRN (Reason: pain) Qty: 60 1RF Incruse Ellipta 62.5 mcg/actuation blister with device 1 inh inhalation DAILY 30 Days Qty: 1 6RF Discharge Orders: Discharge Order (Routine); Ordered 11/07/21 Ordered By: Campos Walton Diet: advance to usual diet Activity on Discharge: As tolerated Stand Alone Forms: Patient Portal Discharge page Care Plan Goals: recovery Health Concerns: asthma Plan of Treatment: prednisone 40mg daily for 5 days, follow up with pulm Assessment: see above
--- NOTE | 2021-11-07 09:31 | MHC.CM.PN ---
PATIENT IS DISCHARGED HOME - SELF CARE. FAMILY TO TRANSPORTATION. RN AWARE OF PLAN
== END 2021-11-07 14:02 | disposition home or self-care (01) | DRG 141 ==
LOC: HO.ED 22:02 → HO.EDOVER 22:47 → HO.S3 11-05 17:03
PROVIDERS: Physician Assistant; Admitting Provider Hospitalist; Emergency Provider Internal Medicine; PCP Nurse Practitioner Family; Visit Provider Internal Medicine
DX: J45.41 Moderate persistent asthma with (acute) exacerbation (principal); D72.829 Elevated white blood cell count, unspecified; F32.A Depression, unspecified; F41.9 Anxiety disorder, unspecified; M19.90 Unspecified osteoarthritis, unspecified site; G43.909 Migraine, unspecified, not intractable, without status migrainosus; Z20.822 Contact with and (suspected) exposure to COVID-19; Z79.1 Long term (current) use of non-steroidal anti-inflammatories (NSAID); Z79.51 Long term (current) use of inhaled steroids; Z79.899 Other long term (current) drug therapy
CPT/HCPCS: 36415; 71045; 80048; 82803; 83735; 85025; 85027; 87635; 93005; 94640; 96374; 99218; 99285; J1650; J2920; J2930; J3475

== ENCOUNTER 2021-11-05 08:33 | Outpatient (REF) | payer MEDICAID, SELFPAY | END 2021-11-05 08:34 | disposition home or self-care (01) | LOC: HO.HOSX 08:33 | PROVIDERS: Visit Provider Physician Assistant | DX: Z13.89 Encounter for screening for other disorder (principal) ==

== ENCOUNTER → 2021-11-20 09:55 | Outpatient (BNVA) | payer MEDICAID, SELFPAY | PROVIDERS: PCP Nurse Practitioner Family; Visit Provider Internal Medicine Pulmonary Disease | DX: J45.40 Moderate persistent asthma, uncomplicated (principal); R06.00 Dyspnea, unspecified; Z79.899 Other long term (current) drug therapy | CPT/HCPCS: 99212 ==

== ENCOUNTER 2021-11-26 09:09 | Outpatient (REF) | payer MEDICAID, SELFPAY | END 2021-11-26 09:10 | disposition home or self-care (01) | LOC: HO.HOSX 09:09 | PROVIDERS: Visit Provider Physician Assistant | DX: Z13.89 Encounter for screening for other disorder (principal) ==

== ENCOUNTER → 2021-11-28 10:19 | Outpatient (BNVA) | payer MEDICAID, SELFPAY | PROVIDERS: PCP Nurse Practitioner Family; Visit Provider Internal Medicine Pulmonary Disease | DX: J30.89 Other allergic rhinitis (principal); J45.909 Unspecified asthma, uncomplicated ==

== ENCOUNTER 2021-12-07 07:01 | Emergency (ER) | payer MEDICAID, SELFPAY ==
--- NOTE | ~2021-12-07 | CT_ITS ---
EXAMINATION: CT HEAD WITHOUT CONTRAST CLINICAL INFORMATION: Left-sided headache with reported left-sided weakness. COMPARISON: Head CT scan dated 11/24/2012. TECHNIQUE: Contiguous axial imaging was performed from the skull base to vertex without intravenous administration of contrast. Coronal and sagittal reformatted images were obtained. This CT examination was performed using dose optimization techniques as appropriate, variously including the following: *Automated exposure control *Adjustment of mA and/or kV according to patient size (this includes techniques or standardized protocols for targeted exams where dose is matched to indication/reason for exam; i.e. extremities or head) *Use of iterative reconstruction technique DLP: 612 mGy-cm FINDINGS: There is no evidence of acute intracranial hemorrhage or territorial infarction. No abnormal mass effect or midline shift is seen. Duran to white matter differentiation is well preserved. No extra-axial fluid collections are identified. The ventricles are normal in size. There is no abnormal attenuation within the brain parenchyma. The osseous structures and soft tissues are normal. The mastoid air cells and visualized portions of the paranasal sinuses are well aerated. Mild mid nasal septal deviation, apex of the right is seen. CT/CT head/brain wo con IMPRESSION: No acute intracranial pathology.
[2021-12-07 07:33] VITALS: BP 121/81; PULSE 84; RESP 14; TEMP 36.7; O2SAT 96; BMI 28.9
[2021-12-07 08:12] VITALS: BP 119/73; PULSE 71; RESP 16; O2SAT 95
--- NOTE | 2021-12-07 08:50 | ECG_ITS ---
Test Reason : headache Blood Pressure : / mmHG Vent. Rate : 058 BPM Atrial Rate : 058 BPM P-R Int : 150 ms QRS Dur : 086 ms QT Int : 466 ms P-R-T Axes : 038 007 040 degrees QTc Int : 457 ms Sinus bradycardia Possible Inferior infarct (cited on or before 19-AUG-2021) Abnormal ECG When compared with ECG of 04-NOV-2021 18:15, No significant change was found Referred By: Mar Busch Electronically Signed By:DEANNA SALAZAR MD
--- NOTE | 2021-12-07 08:56 | ED_ITS ---
HPI - Headache General Chief Complaint: Headache Stated Complaint: headaches, numbness left side Time Seen by Provider: 12/07/21 08:43 Source: patient Mode of arrival: ambulatory History of Present Illness HPI Narrative: 56-year-old female with a past medical history anxiety, arthritis, asthma, depression, migraine headaches, presenting to ED complaining of intermittent left sided headache since last week with associated intermittent left-sided body tingling/weakness. Admits to episode last week which resolved and additional episode beginning yesterday. Reports associated left-sided blurry vision, photophobia, and CP yesterday. Denies nausea, vomiting, diarrhea, SOB, abdominal pain, pedal edema. Denies taking AC or trauma MD elicited complaint: headache and migraine Onset (ago): week(s) Related Data Home Medications Medication Instructions Recorded Confirmed cetirizine 10 mg tablet 10 mg PO DAILY PRN 11/30/20 11/04/21 diclofenac sodium 1 % topical gel 2 g TOPICAL QID 11/30/20 11/04/21 docusate sodium 100 mg capsule 100 mg PO BID 11/30/20 11/04/21 (DOK) duloxetine 60 mg capsule,delayed 60 mg PO DAILY 11/30/20 11/04/21 release ergocalciferol (vitamin D2) 1,250 1,250 mcg PO REAL 11/30/20 11/04/21 mcg (50,000 unit) capsule fluticasone propionate 50 2 spray INTRANASAL DAILY 11/30/20 11/04/21 mcg/actuation nasal spray,suspension ipratropium bromide 17 2 puff INHALATION QID PRN 11/30/20 11/04/21 mcg/actuation HFA aerosol inhaler (Atrovent HFA) lidocaine 5 % topical patch 1 patch TOPICAL DAILY 11/30/20 11/04/21 (Lidoderm) melatonin 5 mg tablet 5 - 10 mg PO BEDTIME PRN 11/30/20 11/04/21 montelukast 10 mg tablet 10 mg PO BEDTIME 11/30/20 11/04/21 omeprazole 20 mg capsule,delayed 20 mg PO BID 11/30/20 11/04/21 release polyethylene glycol 3350 17 17 g PO DAILY 11/30/20 11/04/21 gram/dose oral powder atorvastatin 40 mg tablet 1 tab PO BEDTIME 11/04/21 11/04/21 baclofen 10 mg tablet 1 tab PO TID PRN 11/04/21 11/04/21 Previous Rx's Medication Instructions Recorded naproxen 500 mg tablet 500 mg PO BID PRN #60 tab 12/20/20 albuterol sulfate 90 mcg/actuation 2 puff INHALATION Q4-6H PRN #8.5 g 08/04/21 aerosol inhaler (ProAir HFA) fluticasone furoate 200 1 inh INHALATION DAILY 30 Days #1 09/19/21 mcg-vilanterol 25 mcg/dose ea inhalation powder (Breo Ellipta) umeclidinium 62.5 mcg/actuation 1 inh INHALATION DAILY 30 Days #1 09/28/21 blister powder for inhalation ea (Incruse Ellipta) dupilumab 300 mg/2 mL subcutaneous See Rx Instructions SUBCUT Q2W 28 10/02/21 pen injector (Dupixent) Days #4 ml prednisone 20 mg tablet 40 mg PO DAILY #10 tab 11/07/21 albuterol sulfate 2.5 mg (3 mL) INHALATION Q4-6H PRN 11/14/21 #90 ml gabapentin 300 mg capsule 300 mg PO BEDTIME #90 cap 11/19/21 furosemide 20 mg tablet (Lasix) 20 mg PO QAM 30 Days #30 tab 11/20/21 Allergies Allergy/AdvReac Type Severity Reaction Status Date / Time pollen extracts [POLLEN] Allergy Unknown RUNNY Verified 11/28/21 10:25 NOSE, ITCHY EYES seasonl allergies Allergy Unknown asthma Uncoded 11/04/21 17:21 attacks Review of Systems Review of Systems: Constitutional: No Fever, No Chills, No Fatigue, No Malaise ENT/Mouth: No Ear Pain, No Nasal Congestion, No Hoarseness, No sore throat, No Rhinorrhea, No Swallowing Difficulty Eyes: No Eye Pain, No Swelling, No Redness, No Foreign Body, No Discharge, No Vision Changes Cardiovascular: No Chest Pain, No SOB, No Edema, No Palpitations Respiratory: No Cough, No Sputum, No Dyspnea Gastrointestinal: No Nausea, No Vomiting, No Diarrhea, No Abdominal pain Genitourinary: No Dysuria, No Urinary Frequency, No Hematuria, No Flank Pain, No Urinary Flow Changes Musculoskeletal: No joint pain, No Myalgias, No Joint Swelling Skin: No Skin Lesions, No rash Neuro: + Weakness, + Numbness, + Paresthesias, No Loss of Consciousness, No Dizziness, + Headache Yes all other systems are reviewed and are negative Neurologic: Denies Abnormal speech present [facility] Past Medical History Attestation statement: The following information was validated with the patient. Medical History Anxiety Arthritis Asthma COVID-19 Depression Migraine headache Surgical History Hx of cholecystectomy Hx of elbow surgery Hx of hysterectomy Social History Social History Household Members: Spouse Housing: House Do you presently have visiting nurse or other home services: No Alcohol intake: unknown Patient Tobacco Use Status: Never used Tobacco Advance Directives: Yes Advance Directives Information Provided: Yes Advance Directives on File: No service: No Current occupational status: unemployed and disabled Current occupation: rt handed Physical Exam Vital Signs: Vital Signs: Last Vital Signs Temp 98.1 F 12/07/21 07:33 Pulse 65 12/07/21 11:27 Resp 16 12/07/21 11:27 BP 103/66 12/07/21 11:27 Pulse Ox 96 12/07/21 11:27 BMI result Body Mass Index 28.9 Const: General: cooperative, healthy appearing, no acute distress, alert and awake Orientation/consciousness: patient oriented x3 Limitations: no limitations HEENT: Head: Yes normal to inspection and Yes atraumatic Ears: hearing grossly normal bilaterally General nose exam: Normal external nose present Face and sinus: Yes normal facial exam Mouth: Normal oral and palatal mucosa present Throat: Yes posterior oropharynx normal and Yes uvula midline Eyes: General: appearance normal, both eyes and all related structures Pupils: Equal, round and reactive pupils present EOM: EOMs intact bilaterally Neck: Neck: Yes normal visual inspection and Yes no meningeal signs Resp: Effort & Inspection: normal respiratory effort and no respiratory distress Auscultation: clear to auscultation bilaterally, no rales, no rhonchi and no wheezes Cardio: Rate: regular rate Heart sounds: S1 normal heart sound present and S2 normal heart sound present GI: Inspection: Yes normal to inspection Palpation (GI): Soft to palpation, nontender and no guarding : General: Yes no CVA tenderness Back/Spine/Pelvis: Back: no CVA tenderness Skin: Rashes: no rashes Wounds: no wounds Neuro: General: patient oriented x3, tone normal, moves all extremities, no meningeal signs, no focal motor deficits and CN's II-XI intact bilaterally Cranial nerves: Yes CN's II-XII intact bilaterally, Yes Equal, round and reactive pupils present and Yes Bilaterally intact EOM present Cognition (Neuro): normal cognition Speech: No Abnormal speech present Motor exam (neuro): 5/5 motor strength present throughout, Pronator motor function not present and no tremor noted Coordination: [id number] test normal Romberg Test: Negative Extrem: General: Yes normal to inspection Course Course Course Narrative: -1217--no leukocytosis. Acute on chronic transaminitis. Troponin negative. Labs otherwise unremarkable. CT head/brain wo con IMPRESSION: No acute intracranial pathology. -1219--on re-evaluation patient reports symptomatic improvement, denies headache at present. Feels safe for discharge home at this time. Will refer to neurology MDM - Headache MDM Narrative Medical decision making narrative: 56-year-old female with a past medical history anxiety, arthritis, asthma, depression, migraine headaches, presenting to ED complaining of intermittent left sided headache since last week with associated intermittent left-sided body tingling/weakness. On exam vital signs stable, NAD/nontoxic appearing, no focal neuro deficits, no appreciable weakness on exam. Concern for complicated migraine headache. Symptoms not consistent with CVA/TIA heard rule out metabolic/infectious etiologies, unlikely SAH or cervical dissection Plan: EKG, labs, head CT, symptomatic treatment, re-evaluate Differential Diagnosis Differential diagnosis: Likely migraine, tension headache and headache Medical Records Attestation: I reviewed the patient's medical records. Lab Data Attestation: I reviewed the patient's lab results. Result diagrams: 12/07/21 09:04 12/07/21 09:04 Labs: Lab Results 12/07/21 12/07/21 12/07/21 Range/Units 09:04 09:04 09:04 WBC 6.5 (4.8-10.8) X10*3/uL RBC 4.69 (4.20-5.50) X10*6/uL Hgb 13.2 (12.0-16.0) g/dl Hct 40.7 (37.0-47.0) % MCV 86.8 (80.0-98.0) fL MCH 28.1 (27.0-33.0) pg MCHC 32.4 (31.0-35.0) g/dl RDW 12.8 (11.0-16.0) % Plt Count 283 (160-400) X10*3/uL MPV 9.3 L (9.4-12.3) fL Immature Gran % (Auto) 0.2 (0.0-0.4) % Neut % (Auto) 51.7 (45-73) % Lymph % (Auto) 37.8 (20-40) % [place] % (Auto) 6.6 (2-11) % Eos % (Auto) 2.8 (0-4) % Baso % (Auto) 0.9 (0-2) % Lymph # (Auto) 2.5 (1.2-4.9) X10*3/uL [place] # (Auto) 0.4 (0.1-1.2) X10*3/uL Eos # (Auto) 0.2 (0.0-0.4) X10*3/uL Baso # (Auto) 0.1 (0.0-0.2) X10*3/uL Abs Immat Gran (auto) 0.01 (0.00-0.03) X10*3/uL Absolute Neuts (auto) 3.4 (2.0-8.3) x10*3/uL Absolute Nucleated RBC 0.000 (0.0-0.012) X10*3/uL Nucleated RBC % (auto) 0.0 (0.0-0.2) /100WBC Sodium 141 (135-145) mmol/L Potassium 4.7 (3.3-5.1) mmol/L Chloride 108 (96-108) mmol/L Carbon Dioxide 26 (22-29) mmol/L Anion Gap 12 (12-20) BUN 14 (9-16) mg/dL Creatinine 0.60 (0.5-1.4) mg/dL Estim Creat Clear Calc 99.4 Estimated GFR > 60 Random Glucose 96 (60-115) mg/dL Calcium 9.3 (8.4-10.2) mg/dL Magnesium 2.1 (1.6-2.6) mg/dL Total Bilirubin 0.5 (0.0-1.0) mg/dL Direct Bilirubin 0.2 (0.0-0.5) mg/dL AST 40 H D (5-31) U/L ALT 36 H (0-31) U/L Alkaline Phosphatase 96 (39-117) U/L Troponin I High Sens < 3.5 (<3.5-17.0) ng/L Total Protein 6.9 (6.5-8.0) g/dL Albumin 4.0 (3.5-5.0) g/dL Discharge Plan Discharge Clinical Impression: Migraine headache Patient Disposition: Home, Self-Care Instructions: Migraine Headache (ED) Additional Instructions: Your blood work shows mild elevation in her liver enzymes. Otherwise unremarkable. Her head CT was unremarkable. Please follow-up with Neurology and your primary care doctor. Take Tylenol Motrin for headache. If you develop weakness, numbness, unbearable/worsening headache, vision change or loss please return to the emergency department. Prescriptions: No Action Breo Ellipta 200-25 mcg/dose blister with device 1 inh inhalation DAILY 30 Days Qty: 1 6RF Dupixent Pen 300 mg/2 mL pen injector See Rx Instructions subcut Q2W 28 Days Qty: 4 12RF Rx Instructions: 600 mg initially, then 300 mg subcut every 2 weeks; albuterol sulfate 2.5 mg /3 mL (0.083 %) solution for nebulization 2.5 mg inhalation Q4-6H PRN (Reason: shortness of breath or wheezing) Qty: 90 0RF gabapentin 300 mg capsule 300 mg PO BEDTIME Qty: 90 1RF cetirizine 10 mg tablet 10 mg PO DAILY PRN (Reason: Allergy Symptoms) 0RF lidocaine [Lidoderm] 5 % adhesive patch,medicated 1 patch topical DAILY 0RF Rx Instructions: 12 HOURS ON 12 HOURS OFF docusate sodium [DOK] 100 mg capsule 100 mg PO BID 0RF omeprazole 20 mg capsule,delayed release(DR/EC) 20 mg PO BID 0RF montelukast 10 mg tablet 10 mg PO BEDTIME 0RF ergocalciferol (vitamin D2) 1,250 mcg (50,000 unit) capsule 1,250 mcg PO REAL 0RF polyethylene glycol 3350 17 gram/dose powder 17 g PO DAILY 0RF fluticasone propionate 50 mcg/actuation spray,suspension 2 spray intranasal DAILY 0RF duloxetine 60 mg capsule,delayed release(DR/EC) 60 mg PO DAILY 0RF Atrovent HFA 17 mcg/actuation HFA aerosol inhaler 2 puff inhalation QID PRN (Reason: wheezing) 0RF diclofenac sodium 1 % gel 2 g topical QID 0RF melatonin 5 mg tablet 5 - 10 mg PO BEDTIME PRN (Reason: insomnia) 0RF albuterol sulfate [ProAir HFA] 90 mcg/actuation HFA aerosol inhaler 2 puff inhalation Q4-6H PRN (Reason: Wheezing) Qty: 8.5 0RF atorvastatin 40 mg tablet 1 tab PO BEDTIME 0RF baclofen 10 mg tablet 1 tab PO TID PRN (Reason: Spasms) 0RF prednisone 20 mg tablet 40 mg PO DAILY Qty: 10 0RF naproxen 500 mg tablet 500 mg PO BID PRN (Reason: pain) Qty: 60 1RF furosemide [Lasix] 20 mg tablet 20 mg PO QAM 30 Days Qty: 30 3RF Incruse Ellipta 62.5 mcg/actuation blister with device 1 inh inhalation DAILY 30 Days Qty: 1 6RF Referrals: Frandy Montano MD [Physician] - 1 week
[2021-12-07 09:07] LABS: MANUAL DIFF FLAG NO
[2021-12-07 09:19] LABS: Basophils Absolute Auto 0.1 X10*3/uL (0.0-0.2); Basophils Percent Auto 0.9 % (0-2); Eosinophils Absolute Auto 0.2 X10*3/uL (0.0-0.4); Eosinophils Percent Auto 2.8 % (0-4); Hematocrit 40.7 % (37.0-47.0); Hemoglobin 13.2 g/dl (12.0-16.0); Imm Gran Abs Auto 0.01 X10*3/uL (0.00-0.03); Imm Gran Pct Auto 0.2 % (0.0-0.4); Lymphocytes Absolute Auto 2.5 X10*3/uL (1.2-4.9); Lymphocytes Percent Auto 37.8 % (20-40); Mean Corpuscular HGB Conc 32.4 g/dl (31.0-35.0); Mean Corpuscular Hemoglobin 28.1 pg (27.0-33.0); Mean Corpuscular Volume 86.8 fL (80.0-98.0); Mean Platelet Volume 9.3 fL (9.4-12.3); Monocytes Absolute Auto 0.4 X10*3/uL (0.1-1.2); Monocytes Percent Auto 6.6 % (2-11); Neutrophils Absolute Auto 3.4 x10*3/uL (2.0-8.3); Neutrophils Percent Auto 51.7 % (45-73); Platelet Count 283 X10*3/uL (160-400); Red Blood Count 4.69 X10*6/uL (4.20-5.50); Red Cell Distribution Width 12.8 % (11.0-16.0); White Blood Count 6.5 X10*3/uL (4.8-10.8)
[2021-12-07 09:32] LABS: Alanine Aminotransferase 36 U/L (0-31); Alkaline Phosphatase 96 U/L (39-117); Anion Gap 12 (12-20); Aspartate Amino Transferase 40 U/L (5-31); Bilirubin Direct 0.2 mg/dL (0.0-0.5); Bilirubin Total 0.5 mg/dL (0.0-1.0); Blood Urea Nitrogen 14 mg/dL (9-16); Calcium 9.3 mg/dL (8.4-10.2); Carbon Dioxide 26 mmol/L (22-29); Chloride 108 mmol/L (96-108); Creatinine Clr Calc Pharmacy 99.4; Estimated Glomerular Filt Rate > 60; Glucose Random 96 mg/dL (60-115); Magnesium 2.1 mg/dL (1.6-2.6); Potassium 4.7 mmol/L (3.3-5.1); Sodium 141 mmol/L (135-145); Total Protein 6.9 g/dL (6.5-8.0)
[2021-12-07 09:33] LABS: Troponin-I High Sensitivity < 3.5 ng/L (<3.5-17.0)
[2021-12-07] MEDS: diphenhydrAMINE HCL 50 MG/ML VIAL 12.5 MG IVPUSH (10:02)
[2021-12-07] MEDS: Metoclopramide HCl 10 MG/2 ML VIAL IVPUSH (10:02)
[2021-12-07] MEDS: Acetaminophen 325 MG TABLET 975 MG PO (10:02)
[2021-12-07] MEDS: 0.9 % Sodium Chloride 250 ML 999 ML IV (10:04)
[2021-12-07 11:27] VITALS: BP 103/66; PULSE 65; RESP 16; O2SAT 96
== END 2021-12-07 12:55 | disposition home or self-care (01) ==
PROVIDERS: Physician Assistant; Emergency Provider Emergency Medicine
DX: G43.909 Migraine, unspecified, not intractable, without status migrainosus (principal); R20.0 Anesthesia of skin; Z79.899 Other long term (current) drug therapy
CPT/HCPCS: 36415; 70450; 80048; 80076; 83735; 84484; 85025; 93005; 96374; 96375; 99284; J1200; J2765

== ENCOUNTER → 2021-12-19 19:30 | Outpatient (REF) | payer MEDICAID, SELFPAY | LOC: HO.SL 19:30 | PROVIDERS: PCP Nurse Practitioner Family; Visit Provider Nurse Practitioner Family | DX: G47.33 Obstructive sleep apnea (adult) (pediatric) (principal) | CPT/HCPCS: 95810 ==

== ENCOUNTER → 2022-01-02 08:20 | Outpatient (REF) | payer MEDICAID, SELFPAY ==
--- NOTE | 2022-01-02 08:23 | CA_ITS ---
Transthoracic Echocardiogram Patient (Last, First, Middle): Alberta Bashir, Gender: Female Date of : 1965 Age: 56 Procedure Date: 01/02/2022 Procedure Type: Transthoracic Echocardiogram Location: OP Height: 157.48 cm Weight: 68.95 kg BSA: 1.70 m2 Heart Rate: 71 bpm BP: 104 / 70 mmHg Tire Buster: SB Referring MD: Jordan Roman MD Paper Cup Machine Operator: Vincent Mckeon MD Symptoms: R06.00 - Dyspnea, unspecified Study Quality: Fair ECG Rhythm: Sinus Conclusions: - 1. Normal LV systolic function with grade 1 diastolic dysfunction 2. Normal cardiac valvular Doppler 3. Normal RV systolic pressure 4. No gross pericardial effusion Findings Left Ventricle Normal left ventricular size, thickness, and systolic function. The visually estimated ejection fraction is between 60-65%. Spectral Doppler is indicative of an impaired relaxation filling pattern. E/E prime ratio is <8, consistent with normal filling pressures. Right Ventricle Normal right ventricular cavity size and systolic function. Atria Both atria are normal in size. Interatrial shunt cannot be excluded. Aortic Valve The aortic valve structure and function is likely normal. There is no aortic valve stenosis. There is no aortic valve regurgitation. Mitral Valve Normal mitral valve structure and function. There is trace mitral valve regurgitation. There is no mitral valve stenosis. Pulmonic Valve The pulmonic valve is likely normal. There is trace pulmonic valve regurgitation. Tricuspid Valve Likely normal tricuspid valve structure and function. There is trace tricuspid valve regurgitation. The right ventricular systolic pressure is normal. Normal right atrial pressure. There is no evidence of pulmonary hypertension. Great Vessels All visible segments of the aorta are normal in size. The pulmonary artery was not well visualized. Venous The inferior vena cava is normal in size and collapses greater than 50% with inspiration. Pericardium/Pleural There is no evidence of pericardial effusion. Prior Study Comparison No prior study available for comparison. Measurements 2D Linear Measurements IVSd: 0.91 0.6-0.9/0.6-1.0 cm LVIDd: 4.14 3.9-5.3/4.2-5.9 cm LVIDd Index: 2.44 2.4-3.2/2.2-3.1 cm/m2 LVIDs: 2.81 2.0-3.6 cm LVPWd: 0.74 0.7-1.1 cm LA Diam: 2.80 2.7-3.8/3.0-4.0 cm LAIDs Index: 1.65 1.5-2.3 cm/m2 LV Mass: 128.39 67-162/88-224 g LV Mass Index: 75.52 43-95/49-115 g/m2 LVOT Diam: 1.90 3.0+(-)1.3 cm Mitral Valve MV Pk E: 0.66 MV PK A: 0.78 MV Decel Time: 273.00 E/A: 0.80 E'Lateral: 7.40 E'Medial: 5.87 E/E' Med: 11.20 E/E' Lat: 8.90 PHT: 80.00 MVA PHT: 2.75 Decel [place]: 2.40 Aortic Valve AoV Pk Abdiaziz: 0.94 AoV Mn Abdiaziz: 0.66 AoV VTI: 0.19 AoV Pk Grad: 4.00 Aov Mn Grad: 2.00 SONAL Cont.VTI: 2.49 LVOT LVOT Pk Abdiaziz: 0.84 LVOT Mn Abdiaziz: 0.60 LVOT VTI: 0.16 LVOT Pk Grad: 3.00 LVOT Mn Grad: 2.00 LVOT Diam: 1.90 LVOT Area: 2.84 Diastolic Function MV Pk E: 0.66 MV Pk A: 0.78 E/A: 0.80 E'Medial: 5.87 E/E' Med: 11.20 E' Laterial: 7.40 E/E' Lat: 8.90 Right Ventricle TAPSE (mm): 18.50 TVS' Abdiaziz: 11.00 Tricuspid Valve TR Pk Abdiaziz: 1.89 TR Pk Grad: 14.00 RA Press: 3.00 RVSP: 17.00 Great Vessels Aorta Sinus of Valsalva: 2.91 2.0-3.[address] [place]: 2.48 1.7-3.4 cm Ao Asc: 2.90 2.1-3.4 cm Ao Arch: 2.60 Ao Desc: 1.40 Pulmonary Valve PV Pk Abdiaziz: 0.77 Peak PV Grad: 2.00 Updated in Other Vendor System with Status of Final Vincent Mckeon MD electronically signed on 01/02/2022 12:21:21 PM with status of Final
== END ==
LOC: HO.CARD 08:20
PROVIDERS: Visit Provider Internal Medicine Pulmonary Disease
DX: R06.00 Dyspnea, unspecified (principal)
CPT/HCPCS: 93306

== ENCOUNTER 2022-01-07 12:31 | Outpatient (REF) | payer MEDICAID, SELFPAY ==
--- NOTE | ~2022-01-07 | XR_ITS ---
EXAMINATION: XR KNEES, STANDING AP XR KNEE, LEFT CLINICAL INFORMATION: Knee pain. COMPARISON: Bilateral knee radiographs 12/20/2020 TECHNIQUE: Standing AP view of both knees is performed along with lateral and axial patella views of the left knee. FINDINGS: Right: Mild narrowing medial knee joint compartment. No erosive change or chondrocalcinosis. Bony mineralization normal. No destructive process or periostitis. Left: Mild narrowing medial knee joint compartment with small spur from medial tibial plateau. No erosive change or chondrocalcinosis. Lateral view shows small suprapatellar effusion and spurring at the quadriceps insertion patella. Axial view shows no lateralization or tilting patella. No patellofemoral joint narrowing. Hoffa's fat pad appears normal. No destructive process or periostitis. XR/XR knee LT 2V IMPRESSION: Right: -Mild narrowing medial compartment similar to 12/20/2020. Left: -Mild narrowing medial knee joint compartment with small spur tibial plateau similar to 12/20/2020. -Small suprapatellar effusion. -Spurring at quadriceps insertion patella.
--- NOTE | ~2022-01-07 | XR_ITS ---
EXAMINATION: XR KNEES, STANDING AP XR KNEE, LEFT CLINICAL INFORMATION: Knee pain. COMPARISON: Bilateral knee radiographs 12/20/2020 TECHNIQUE: Standing AP view of both knees is performed along with lateral and axial patella views of the left knee. FINDINGS: Right: Mild narrowing medial knee joint compartment. No erosive change or chondrocalcinosis. Bony mineralization normal. No destructive process or periostitis. Left: Mild narrowing medial knee joint compartment with small spur from medial tibial plateau. No erosive change or chondrocalcinosis. Lateral view shows small suprapatellar effusion and spurring at the quadriceps insertion patella. Axial view shows no lateralization or tilting patella. No patellofemoral joint narrowing. Hoffa's fat pad appears normal. No destructive process or periostitis. XR/XR knee standing BI IMPRESSION: Right: -Mild narrowing medial compartment similar to 12/20/2020. Left: -Mild narrowing medial knee joint compartment with small spur tibial plateau similar to 12/20/2020. -Small suprapatellar effusion. -Spurring at quadriceps insertion patella.
== END 2022-01-07 12:32 | disposition home or self-care (01) ==
LOC: HO.HOSX 12:31
PROVIDERS: PCP Nurse Practitioner Family; Visit Provider Physician Assistant
DX: M17.12 Unilateral primary osteoarthritis, left knee (principal)
CPT/HCPCS: 20610; 73560; 73565; 99212; J1040

== ENCOUNTER → 2022-01-08 10:15 | Outpatient (BNVA) | payer MEDICAID, SELFPAY | PROVIDERS: PCP Nurse Practitioner Family; Visit Provider Internal Medicine Pulmonary Disease | DX: J45.909 Unspecified asthma, uncomplicated (principal); R06.00 Dyspnea, unspecified | CPT/HCPCS: 99212 ==

== ENCOUNTER 2022-02-06 11:41 | Emergency (ER) | payer MEDICAID, SELFPAY ==
--- NOTE | ~2022-02-06 | XR_ITS ---
EXAMINATION: XR CHEST CLINICAL INFORMATION: Dyspnea COMPARISON: 11/04/2021 TECHNIQUE: Frontal view of the chest was obtained. FINDINGS: The lungs are well expanded. Increased streaky opacities at the right base. No pleural effusion or pneumothorax. The cardiomediastinal silhouette is within normal limits. Tortuous aorta with scoliotic curvature of the spine. Radiopaque anchor in the right humeral head. XR/XR chest 1V IMPRESSION: Streaky opacities are seen at the right base, increased from prior. This could be atelectasis or pneumonia.
--- NOTE | 2022-02-06 11:43 | ECG_ITS ---
Test Reason : cp Blood Pressure : / mmHG Vent. Rate : 074 BPM Atrial Rate : 074 BPM P-R Int : 144 ms QRS Dur : 084 ms QT Int : 408 ms P-R-T Axes : 035 010 044 degrees QTc Int : 452 ms Normal sinus rhythm Possible Inferior infarct (cited on or before 04-NOV-2021) Abnormal ECG When compared with ECG of 07-DEC-2021 09:27, No significant change was found Referred By: Generic ED Physician Electronically Signed By:TRUDY BURROWS
[2022-02-06 11:50] VITALS: BP 139/79; PULSE 77; RESP 18; TEMP 35.3; O2SAT 97; BMI 27.4
--- NOTE | 2022-02-06 12:39 | ED.CHESTPAIN ---
HPI - Chest Pain General Chief Complaint: Chest Pain Stated Complaint: Chest pressure/SOB Time Seen by Provider: 02/06/22 12:22 Source: patient History of Present Illness HPI narrative: Patient states last night she had chest pressure and dyspnea. No radiation to her arms. Worse with laying flat. History of similar but much milder symptoms in the past. She has been diagnosed with diastolic heart failure with a recent echocardiogram. It showed normal systolic function but grade 1 diastolic dysfunction. She is currently taking Lasix, 20 mg daily. No recent changes in health status. 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 Her echocardiogram was last month. She is currently having some of the symptoms but is much better as she is sitting up. She denies recent leg swelling. This was the original reason she started on the Lasix. This has improved. She is due for a stress test in March. Related Data Home Medications Medication Instructions Recorded Confirmed cetirizine 10 mg tablet 10 mg PO DAILY PRN Allergy Symptoms 11/30/20 11/04/21 diclofenac sodium 1 % topical gel 2 g topical QID 11/30/20 11/04/21 docusate sodium 100 mg capsule 100 mg PO BID 11/30/20 11/04/21 (DOK) duloxetine 60 mg capsule,delayed 60 mg PO DAILY 11/30/20 11/04/21 release ergocalciferol (vitamin D2) 1,250 1,250 mcg PO REAL 11/30/20 11/04/21 mcg (50,000 unit) capsule fluticasone propionate 50 2 spray intranasal DAILY 11/30/20 11/04/21 mcg/actuation nasal spray,suspension ipratropium bromide 17 2 puff inhalation QID PRN wheezing 11/30/20 11/04/21 mcg/actuation HFA aerosol inhaler (Atrovent HFA) lidocaine 5 % topical patch 1 patch topical DAILY 11/30/20 11/04/21 (Lidoderm) melatonin 5 mg tablet 5 - 10 mg PO BEDTIME PRN insomnia 11/30/20 11/04/21 montelukast 10 mg tablet 10 mg PO BEDTIME 11/30/20 11/04/21 omeprazole 20 mg capsule,delayed 20 mg PO BID 11/30/20 11/04/21 release polyethylene glycol 3350 17 17 g PO DAILY 11/30/20 11/04/21 gram/dose oral powder atorvastatin 40 mg tablet 1 tab PO BEDTIME 11/04/21 11/04/21 baclofen 10 mg tablet 1 tab PO TID PRN Spasms 11/04/21 11/04/21 Previous Rx's Medication Instructions Recorded naproxen 500 mg tablet 500 mg PO BID PRN pain #60 tabs 12/20/20 albuterol sulfate 90 mcg/actuation 2 puff inhalation Q4-6H PRN 08/04/21 aerosol inhaler (ProAir HFA) Wheezing #8.5 grams fluticasone furoate 200 1 inh inhalation DAILY 30 days #1 09/19/21 mcg-vilanterol 25 mcg/dose ea inhalation powder (Breo Ellipta) umeclidinium 62.5 mcg/actuation 1 inh inhalation DAILY 30 days #1 09/28/21 blister powder for inhalation ea (Incruse Ellipta) dupilumab 300 mg/2 mL subcutaneous See Rx Instructions subcut Q2W 28 10/02/21 pen injector (Dupixent) days #4 mL prednisone 20 mg tablet 40 mg PO DAILY #10 tabs 11/07/21 albuterol sulfate 2.5 mg (3 mL) inhalation Q4-6H PRN 11/14/21 shortness of breath or wheezing #90 mL gabapentin 300 mg capsule 300 mg PO BEDTIME #90 caps 11/19/21 furosemide 20 mg tablet (Lasix) 20 mg PO QAM 30 days #30 tabs 11/20/21 azithromycin 250 mg tablet See Rx Instructions PO .COMPLEX #6 02/06/22 tabs Allergies Allergy/AdvReac Type Severity Reaction Status Date / Time pollen extracts [POLLEN] Allergy Unknown RUNNY Verified 01/08/22 10:21 NOSE, ITCHY EYES seasonl allergies Allergy Unknown asthma Uncoded 01/07/22 12:42 attacks Review of Systems Constitutional: Comments: No fevers chills or generalized weakness ENT: Comments: Cardiovascular: Comments: chest pressure described as a heaviness sensation Respiratory: Comments: dyspnea when lying flat Gastrointestinal: Comments: no abdominal pain or nausea or vomiting Musculoskeletal: Comments: no leg swelling. No calf pain Integumentary/Breasts: Comments: no rash Neurologic: Comments: no weakness PMFSH Past Medical History Medical History Anxiety Arthritis Asthma COVID-19 Depression Migraine headache Surgical History Hx of cholecystectomy Hx of elbow surgery Hx of hysterectomy Social History Social History Household Members: Spouse Housing: House Do you presently have visiting nurse or other home services: No Alcohol intake: never Patient Tobacco Use Status: Never used Tobacco Use of substances other than those prescribed or required for medical reasons: No Advance Directives: No Advance Directives Information Provided: No Patient : No service: No Current occupational status: unemployed and disabled Current occupation: rt handed Physical Exam Vital Signs: Vital Signs: Last Vital Signs Temp 95.6 F L 02/06/22 11:50 Pulse 76 02/06/22 15:17 Resp 14 02/06/22 15:17 BP 131/83 02/06/22 15:17 Pulse Ox 98 02/06/22 15:17 O2 Del Method 02/06/22 15:17 BMI result Body Mass Index 27.4 Const: Other: awake and alert in no acute distress Resp: Other: clear and equal bilaterally without wheezes rales or rhonchi Cardio: Other: regular rate and rhythm without murmurs rubs or gallops GI: Other: soft nontender nondistended Skin: Other: warm pink and dry without rash Neuro: Other: no focal deficit Extrem: Other: calves nontender bilaterally Course Course Course Narrative: patient with orthopnea and chest heaviness. Rule out ischemia Patient with known diastolic grade 1 congestive heart failure with recent echocardiogram within the last month. EKG normal sinus rhythm without obvious acute ischemic changes or dysrhythmia. Await labs including troponin and BNP. 14:34. Records reviewed. Her recent echo did show normal ejection fraction with grade 1 diastolic dysfunction however remainder of echo was reassuring. Troponin is normal today as is BNP and EKG. Chest x-ray is clear. I discussed the case with her supervisor assembly and packing, Dr. Mata. we will increase her Lasix to 40 mg daily. Encouraged her to follow and record her daily weights and call the cardiology office next week. 16:20. Chest x-ray shows possibly developing atelectasis or early pneumonia right base. Will start on azithromycin and discharged home MDM - Chest Pain Lab Data Result diagrams: 02/06/22 12:46 02/06/22 12:46 Labs: Lab Results 02/06/22 02/06/22 02/06/22 Range/Units 12:45 12:46 12:46 WBC 7.2 (4.8-10.8) X10*3/uL RBC 4.89 (4.20-5.50) X10*6/uL Hgb 13.6 (12.0-16.0) g/dl Hct 41.9 (37.0-47.0) % MCV 85.7 (80.0-98.0) fL MCH 27.8 (27.0-33.0) pg MCHC 32.5 (31.0-35.0) g/dl RDW 13.1 (11.0-16.0) % Plt Count 292 (160-400) X10*3/uL MPV 9.4 (9.4-12.3) fL Immature Gran % (Auto) 0.3 (0.0-0.4) % Neut % (Auto) 61.1 (45-73) % Lymph % (Auto) 30.6 (20-40) % [place] % (Auto) 6.2 (2-11) % Eos % (Auto) 1.1 (0-4) % Baso % (Auto) 0.7 (0-2) % Lymph # (Auto) 2.2 (1.2-4.9) X10*3/uL [place] # (Auto) 0.4 (0.1-1.2) X10*3/uL Eos # (Auto) 0.1 (0.0-0.4) X10*3/uL Baso # (Auto) 0.1 (0.0-0.2) X10*3/uL Abs Immat Gran (auto) 0.02 (0.00-0.03) X10*3/uL Absolute Neuts (auto) 4.4 (2.0-8.3) x10*3/uL Absolute Nucleated RBC 0.000 (0.0-0.012) X10*3/uL Nucleated RBC % (auto) 0.0 (0.0-0.2) /100WBC Sodium 141 (135-145) mmol/L Potassium 3.9 (3.3-5.1) mmol/L Chloride 108 (96-108) mmol/L Carbon Dioxide 24 (22-29) mmol/L Anion Gap 13 (12-20) BUN 10 (9-16) mg/dL Creatinine 0.68 (0.5-1.4) mg/dL Estim Creat Clear Calc 85.5 Estimated GFR > 60 Random Glucose 102 (60-115) mg/dL Calcium 9.6 (8.4-10.2) mg/dL Total Bilirubin 0.6 (0.0-1.0) mg/dL AST 23 D (5-31) U/L ALT 21 (0-31) U/L Alkaline Phosphatase 94 (39-117) U/L Troponin I High Sens (<3.5-17.0) ng/L B-Natriuretic Peptide (<100) pg/mL Total Protein 7.5 (6.5-8.0) g/dL Albumin 4.5 (3.5-5.0) g/dL Urine Color STRAW Urine Appearance HAZY Urine pH 6.0 (5.0-8.0) Ur Specific Mal[place] <= 1.005 (1.005-1.025) Urine Protein NEG (NEG-TRACE) MG/DL Urine Glucose (UA) >=1000 H (NEG) MG/DL Urine Ketones NEG (NEG) MG/DL Urine Blood NEG (NEG) Urine Nitrite NEG (NEG) Ur Leukocyte Esterase NEG (NEG) Urine RBC 0-2 (0) /HPF Urine WBC 0-2 (0-4) /HPF Ur Squamous Epith Cells TRACE /LPF Urine Bacteria NONE /LPF 02/06/22 Range/Units 12:46 WBC (4.8-10.8) X10*3/uL RBC (4.20-5.50) X10*6/uL Hgb (12.0-16.0) g/dl Hct (37.0-47.0) % MCV (80.0-98.0) fL MCH (27.0-33.0) pg MCHC (31.0-35.0) g/dl RDW (11.0-16.0) % Plt Count (160-400) X10*3/uL MPV (9.4-12.3) fL Immature Gran % (Auto) (0.0-0.4) % Neut % (Auto) (45-73) % Lymph % (Auto) (20-40) % [place] % (Auto) (2-11) % Eos % (Auto) (0-4) % Baso % (Auto) (0-2) % Lymph # (Auto) (1.2-4.9) X10*3/uL [place] # (Auto) (0.1-1.2) X10*3/uL Eos # (Auto) (0.0-0.4) X10*3/uL Baso # (Auto) (0.0-0.2) X10*3/uL Abs Immat Gran (auto) (0.00-0.03) X10*3/uL Absolute Neuts (auto) (2.0-8.3) x10*3/uL Absolute Nucleated RBC (0.0-0.012) X10*3/uL Nucleated RBC % (auto) (0.0-0.2) /100WBC Sodium (135-145) mmol/L Potassium (3.3-5.1) mmol/L Chloride (96-108) mmol/L Carbon Dioxide (22-29) mmol/L Anion Gap (12-20) BUN (9-16) mg/dL Creatinine (0.5-1.4) mg/dL Estim Creat Clear Calc Estimated GFR Random Glucose (60-115) mg/dL Calcium (8.4-10.2) mg/dL Total Bilirubin (0.0-1.0) mg/dL AST (5-31) U/L ALT (0-31) U/L Alkaline Phosphatase (39-117) U/L Troponin I High Sens < 3.5 (<3.5-17.0) ng/L B-Natriuretic Peptide 13 (<100) pg/mL Total Protein (6.5-8.0) g/dL Albumin (3.5-5.0) g/dL Urine Color Urine Appearance Urine pH (5.0-8.0) Ur Specific [place] (1.005-1.025) Urine Protein (NEG-TRACE) MG/DL Urine Glucose (UA) (NEG) MG/DL Urine Ketones (NEG) MG/DL Urine Blood (NEG) Urine Nitrite (NEG) Ur Leukocyte Esterase (NEG) Urine RBC (0) /HPF Urine WBC (0-4) /HPF Ur Squamous Epith Cells /LPF Urine Bacteria /LPF Discharge Plan Discharge Clinical Impression: Dyspnea on exertion, Pneumonia Patient Disposition: Home, Self-Care Instructions: Community Acquired Pneumonia (ED), Dyspnea (ED) Additional Instructions: Double your Lasix dose to 40 mg daily. Record your weight every day. Call your cardiology office next week. Call him sooner if not improving Prescriptions: New azithromycin 250 mg tablet See Rx Instructions .ROUTE .COMPLEX Qty: 6 0RF Rx Instructions: For 250 mg dose pack: take 500 mg today (day 1), then 250 mg for 4 days (days 2-5) No Action Breo Ellipta 200-25 mcg/dose blister with device 1 inh inhalation DAILY 30 Days Qty: 1 6RF Dupixent Pen 300 mg/2 mL pen injector See Rx Instructions subcut Q2W 28 Days Qty: 4 12RF Rx Instructions: 600 mg initially, then 300 mg subcut every 2 weeks; albuterol sulfate 2.5 mg /3 mL (0.083 %) solution for nebulization 2.5 mg inhalation Q4-6H PRN (Reason: shortness of breath or wheezing) Qty: 90 0RF gabapentin 300 mg capsule 300 mg PO BEDTIME Qty: 90 1RF cetirizine 10 mg tablet 10 mg PO DAILY PRN (Reason: Allergy Symptoms) lidocaine [Lidoderm] 5 % adhesive patch,medicated 1 patch topical DAILY Rx Instructions: 12 HOURS ON 12 HOURS OFF docusate sodium [DOK] 100 mg capsule 100 mg PO BID omeprazole 20 mg capsule,delayed release(DR/EC) 20 mg PO BID montelukast 10 mg tablet 10 mg PO BEDTIME ergocalciferol (vitamin D2) 1,250 mcg (50,000 unit) capsule 1,250 mcg PO REAL polyethylene glycol 3350 17 gram/dose powder 17 g PO DAILY fluticasone propionate 50 mcg/actuation spray,suspension 2 spray intranasal DAILY duloxetine 60 mg capsule,delayed release(DR/EC) 60 mg PO DAILY Atrovent HFA 17 mcg/actuation HFA aerosol inhaler 2 puff inhalation QID PRN (Reason: wheezing) diclofenac sodium 1 % gel 2 g topical QID melatonin 5 mg tablet 5 - 10 mg PO BEDTIME PRN (Reason: insomnia) albuterol sulfate [ProAir HFA] 90 mcg/actuation HFA aerosol inhaler 2 puff inhalation Q4-6H PRN (Reason: Wheezing) Qty: 8.5 0RF atorvastatin 40 mg tablet 1 tab PO BEDTIME baclofen 10 mg tablet 1 tab PO TID PRN (Reason: Spasms) prednisone 20 mg tablet 40 mg PO DAILY Qty: 10 0RF naproxen 500 mg tablet 500 mg PO BID PRN (Reason: pain) Qty: 60 1RF furosemide [Lasix] 20 mg tablet 20 mg PO QAM 30 Days Qty: 30 3RF Incruse Ellipta 62.5 mcg/actuation blister with device 1 inh inhalation DAILY 30 Days Qty: 1 6RF Referrals: Deniz Og MD [Physician] -
[2022-02-06 12:48] VITALS: BP 126/79; PULSE 66; PULSE 68; RESP 16; O2SAT 98
[2022-02-06 12:56] LABS: MANUAL DIFF FLAG NO
--- NOTE | 2022-02-06 13:00 | PC.NURSE ---
Patient arrives reporting left sided chest pain. Alert and oriented. Respirations regular and even. Skin PWD. States she has a mild cough. No recent sick contacts. NSR on monitor. Clear lung sounds throughout. IV established and labs drawn. Awaiting results and further orders. Will continue to monitor.
[2022-02-06 13:07] LABS: Appearance Urine HAZY; Color Urine STRAW; Glucose Urine UA >=1000 MG/DL (NEG); Leukocyte Esterase Urine NEG (NEG); Nitrite Urine NEG (NEG); Specific Gravity - Urine <= 1.005 (1.005-1.025); Urine Blood NEG (NEG); Urine Ketones NEG (NEG); Urine Protein NEG (NEG-TRACE)
[2022-02-06 13:16] LABS: Basophils Absolute Auto 0.1 X10*3/uL (0.0-0.2); Basophils Percent Auto 0.7 % (0-2); Eosinophils Absolute Auto 0.1 X10*3/uL (0.0-0.4); Eosinophils Percent Auto 1.1 % (0-4); Hematocrit 41.9 % (37.0-47.0); Hemoglobin 13.6 g/dl (12.0-16.0); Imm Gran Abs Auto 0.02 X10*3/uL (0.00-0.03); Imm Gran Pct Auto 0.3 % (0.0-0.4); Lymphocytes Absolute Auto 2.2 X10*3/uL (1.2-4.9); Lymphocytes Percent Auto 30.6 % (20-40); Mean Corpuscular HGB Conc 32.5 g/dl (31.0-35.0); Mean Corpuscular Hemoglobin 27.8 pg (27.0-33.0); Mean Corpuscular Volume 85.7 fL (80.0-98.0); Mean Platelet Volume 9.4 fL (9.4-12.3); Monocytes Absolute Auto 0.4 X10*3/uL (0.1-1.2); Monocytes Percent Auto 6.2 % (2-11); Neutrophils Absolute Auto 4.4 x10*3/uL (2.0-8.3); Neutrophils Percent Auto 61.1 % (45-73); Platelet Count 292 X10*3/uL (160-400); Red Blood Count 4.89 X10*6/uL (4.20-5.50); Red Cell Distribution Width 13.1 % (11.0-16.0); White Blood Count 7.2 X10*3/uL (4.8-10.8)
[2022-02-06 13:19] LABS: B Type Natriuretic Peptide 13 pg/mL (<100); Troponin-I High Sensitivity < 3.5 ng/L (<3.5-17.0)
[2022-02-06 13:22] LABS: RBC Urine 0-2 /HPF (0); Squamous Epithelial Cell Urine TRACE /LPF; WBC Urine 0-2 /HPF (0-4)
[2022-02-06 13:31] LABS: Alanine Aminotransferase 21 U/L (0-31); Albumin Level 4.5 g/dL (3.5-5.0); Alkaline Phosphatase 94 U/L (39-117); Anion Gap 13 (12-20); Aspartate Amino Transferase 23 U/L (5-31); Bilirubin Total 0.6 mg/dL (0.0-1.0); Blood Urea Nitrogen 10 mg/dL (9-16); Calcium 9.6 mg/dL (8.4-10.2); Carbon Dioxide 24 mmol/L (22-29); Chloride 108 mmol/L (96-108); Creatinine Clr Calc Pharmacy 85.5; Estimated Glomerular Filt Rate > 60; Glucose Random 102 mg/dL (60-115); Potassium 3.9 mmol/L (3.3-5.1); Sodium 141 mmol/L (135-145); Total Protein 7.5 g/dL (6.5-8.0)
[2022-02-06 14:00] VITALS: BP 116/67; PULSE 65; RESP 16; O2SAT 99
[2022-02-06] MEDS: Furosemide 20 MG TABLET PO (15:16)
[2022-02-06 15:17] VITALS: BP 131/83; PULSE 76; RESP 14; O2SAT 98
== END 2022-02-06 16:48 | disposition home or self-care (01) ==
PROVIDERS: Emergency Provider Emergency Medicine; PCP Nurse Practitioner Family
DX: J18.9 Pneumonia, unspecified organism (principal); R06.02 Shortness of breath; R06.00 Dyspnea, unspecified
CPT/HCPCS: 36415; 71045; 80053; 81001; 81003; 83880; 84484; 85025; 93005; 99283; 99285

== ENCOUNTER 2022-02-14 19:31 | Emergency (ER) | payer MEDICAID, SELFPAY ==
--- NOTE | ~2022-02-14 | XR_ITS ---
EXAMINATION: XR CHEST CLINICAL INFORMATION: Chest tightness COMPARISON: Chest x-ray 02/06/2022 TECHNIQUE: Frontal view of the chest was obtained. FINDINGS: The lungs are clear. No airspace consolidation, pleural effusion, or pneumothorax. The cardiomediastinal silhouette is within normal limits. No acute osseous injury. Mild S-shaped scoliotic curvature of the spine. Suture anchor in the right humeral head compatible with prior rotator cuff repair. XR/XR chest 1V IMPRESSION: No acute pulmonary process.
[2022-02-14 20:22] VITALS: BP 97/72; PULSE 77; RESP 18; TEMP 36.7; O2SAT 97; BMI 27.6
--- NOTE | 2022-02-14 20:25 | ECG_ITS ---
Test Reason : sob Blood Pressure : / mmHG Vent. Rate : 071 BPM Atrial Rate : 071 BPM P-R Int : 158 ms QRS Dur : 088 ms QT Int : 412 ms P-R-T Axes : 056 012 038 degrees QTc Int : 447 ms Normal sinus rhythm Possible Inferior infarct (cited on or before 04-NOV-2021) Cannot rule out Anterior infarct , age undetermined Abnormal ECG When compared with ECG of 06-FEB-2022 11:40, No significant change was found Referred By: Generic ED Physician Electronically Signed By:Roddy Murphy
--- NOTE | 2022-02-14 21:04 | ED.SOB ---
HPI - SOB/Dyspnea General Chief Complaint: Dyspnea Stated Complaint: SOB Time Seen by Provider: 02/14/22 20:59 Source: patient Mode of arrival: ambulatory Limitations: no limitations History of Present Illness HPI Narrative: 56 years old female was a history of underlying moderate to severe persistent allergic asthma and dyspnea on exertion, patient is nonsmoker, patient has been seen and evaluated by etcher enameling Dr. Roman, diagnosis of obstructive sleep apnea is in question, history of mild diastolic dysfunction. Patient came in for evaluation of chest tightness and dry coughing with left-sided chest pain that has been constant for the past 3 weeks since she was diagnosed with COVID, pain is more when she takes deep breath and coughing. Been feeling generalized tightness in the chest with wheezing and difficulty breathing, pain is not radiating. is aggravated by movement or taking a deep breath and coughing but no pain relief. No recent travel, no lower extremity swelling or tenderness, no history of DVT or PE. Patient had history of COVID infection twice. Related Data Home Medications Medication Instructions Recorded Confirmed cetirizine 10 mg tablet 10 mg PO DAILY PRN Allergy Symptoms 11/30/20 11/04/21 diclofenac sodium 1 % topical gel 2 g topical QID 11/30/20 11/04/21 docusate sodium 100 mg capsule 100 mg PO BID 11/30/20 11/04/21 (DOK) duloxetine 60 mg capsule,delayed 60 mg PO DAILY 11/30/20 11/04/21 release ergocalciferol (vitamin D2) 1,250 1,250 mcg PO REAL 11/30/20 11/04/21 mcg (50,000 unit) capsule fluticasone propionate 50 2 spray intranasal DAILY 11/30/20 11/04/21 mcg/actuation nasal spray,suspension ipratropium bromide 17 2 puff inhalation QID PRN wheezing 11/30/20 11/04/21 mcg/actuation HFA aerosol inhaler (Atrovent HFA) lidocaine 5 % topical patch 1 patch topical DAILY 11/30/20 11/04/21 (Lidoderm) melatonin 5 mg tablet 5 - 10 mg PO BEDTIME PRN insomnia 11/30/20 11/04/21 montelukast 10 mg tablet 10 mg PO BEDTIME 11/30/20 11/04/21 omeprazole 20 mg capsule,delayed 20 mg PO BID 11/30/20 11/04/21 release polyethylene glycol 3350 17 17 g PO DAILY 11/30/20 11/04/21 gram/dose oral powder atorvastatin 40 mg tablet 1 tab PO BEDTIME 11/04/21 11/04/21 baclofen 10 mg tablet 1 tab PO TID PRN Spasms 11/04/21 11/04/21 Previous Rx's Medication Instructions Recorded naproxen 500 mg tablet 500 mg PO BID PRN pain #60 tabs 12/20/20 albuterol sulfate 90 mcg/actuation 2 puff inhalation Q4-6H PRN 08/04/21 aerosol inhaler (ProAir HFA) Wheezing #8.5 grams fluticasone furoate 200 1 inh inhalation DAILY 30 days #1 09/19/21 mcg-vilanterol 25 mcg/dose ea inhalation powder (Breo Ellipta) umeclidinium 62.5 mcg/actuation 1 inh inhalation DAILY 30 days #1 09/28/21 blister powder for inhalation ea (Incruse Ellipta) dupilumab 300 mg/2 mL subcutaneous See Rx Instructions subcut Q2W 28 10/02/21 pen injector (Dupixent) days #4 mL prednisone 20 mg tablet 40 mg PO DAILY #10 tabs 11/07/21 albuterol sulfate 2.5 mg (3 mL) inhalation Q4-6H PRN 11/14/21 shortness of breath or wheezing #90 mL gabapentin 300 mg capsule 300 mg PO BEDTIME #90 caps 11/19/21 furosemide 20 mg tablet (Lasix) 20 mg PO QAM 30 days #30 tabs 11/20/21 azithromycin 250 mg tablet See Rx Instructions PO .COMPLEX #6 02/06/22 tabs Allergies Allergy/AdvReac Type Severity Reaction Status Date / Time pollen extracts [POLLEN] Allergy Unknown RUNNY Verified 02/14/22 20:21 NOSE, ITCHY EYES seasonl allergies Allergy Unknown asthma Uncoded 01/07/22 12:42 attacks Review of Systems Review of Systems: all other systems are reviewed and are negative Constitutional: Reports as per HPI and Reports no additional constitutional complaints Eyes: Reports as per HPI and Reports no additional eye complaints Reports system reviewed and no additional complaints, except as documented Cardiovascular: Reports as per HPI and Reports no additional cardiovascular complaints Respiratory: Reports as per HPI and Reports no additional respiratory complaints Gastrointestinal: Reports as per HPI and Reports no additional gastrointestinal complaints Genitourinary: Reports no additional female genitourinary complaints Musculoskeletal: Reports no additional musculoskeletal complaints Skin/Breast: Reports system reviewed and no additional complaints, except as docu Psychiatric: Reports no additional psychiatric complaints Endocrine: Reports no additional endocrine complaints Hematologic/Lymphatic: Reports no additional hematologic/lymphatic complaints Allergic/Immunologic: Reports no additional allergic/immunologic complaints Reports system reviewed and no additional complaints, except as documented and Reports Abnormal speech present [facility] Past Medical History Medical History Anxiety Arthritis COVID-19 Depression Migraine headache Surgical History Hx of cholecystectomy Hx of elbow surgery Hx of hysterectomy Social History Social History Household Members: Spouse Household Members Other:: - [place] Housing: House Do you presently have visiting nurse or other home services: No Alcohol intake: never Patient Tobacco Use Status: Never used Tobacco Second Hand Smoke Exposure: No Advance Directives: No Advance Directives Information Provided: No service: No Current occupational status: unemployed and disabled Current occupation: rt handed Physical Exam Vital Signs: Vital Signs: Last Vital Signs Temp 97.8 F 02/14/22 22:20 Pulse 89 02/14/22 22:20 Resp 20 02/14/22 22:20 BP 105/56 L 02/14/22 22:20 Pulse Ox 97 02/14/22 22:20 O2 Del Method 02/14/22 22:20 BMI result Body Mass Index 27.6 vital signs have been reviewed as appeared to be correct. Blood pressure normal. Heart rate normal. Respiration rate normal. Temperature normal. Oxygen saturation normal. Appearance: Alert. Oriented X3. No acute distress. Head: Normal external exam. Normocephalic. Atraumatic. No García signs noted. No raccoon eyes noted Eyes: PERRLA. EOMI. Conjunctiva and sclera normal. Eyelids normal. ENT: TM's Normal. Pharynx normal. Uvula midline. Moist mucous membranes. No trismus noted. No drooling noted. No muffled voice noted. Neck: Normal inspection. Neck supple. FROM. No adenopathy. Thyroid Normal. No meningeal signs. No neck mass noted. CVS: Normal heart rate and rhythm. Heart sound normal. No murmurs noted. Pulses normal throughout. Respiratory: No respiratory distress. Painless inspiration. Breath sounds normal. diffuse mild expiratory wheezing with prolonged expiration. Chest nontender. No accessory muscle usage noted or decreased air movement noted. Abdomen: Soft and nontender. Bowel sounds normal in all 4 quadrants. No distention noted. No organomegaly noted. No visible injury noted. Back: No CVA tenderness. Full range of motion noted. Skin: Skin warm and dry. Normal skin color. Normal skin turgor. No rashes/lesions/lacerations noted. Extremities: No lower extremity edema. Extremities exhibit normal range of motion. Extremities nontender. Neuro: Oriented X 3. Cranial nerve exam: II-XII are grossly intact No motor deficit. No sensory deficit. Reflexes normal. Course Course Course Narrative: 56 years old female with history of asthma came in with left-sided chest wall pain. Patient stable vital signs with normal O2 saturation, chest x-ray /lab/ cardiac enzymes/ D-dimer are all unremarkable. Patient was instructed to follow-up with her etcher [facility]am[facility] and natural remedy consultant. MDM - SOB/Dyspnea Lab Data Attestation: I reviewed the patient's lab results. Result diagrams: 02/14/22 21:17 02/14/22 21:17 Labs: Lab Results 02/14/22 02/14/22 02/14/22 Range/Units 20:34 20:34 21:17 WBC 7.9 (4.8-10.8) X10*3/uL RBC 4.68 (4.20-5.50) X10*6/uL Hgb 13.1 (12.0-16.0) g/dl Hct 39.7 (37.0-47.0) % MCV 84.8 (80.0-98.0) fL MCH 28.0 (27.0-33.0) pg MCHC 33.0 (31.0-35.0) g/dl RDW 13.1 (11.0-16.0) % Plt Count 242 (160-400) X10*3/uL MPV 9.4 (9.4-12.3) fL Immature Gran % (Auto) 0.3 (0.0-0.4) % Neut % (Auto) 51.4 (45-73) % Lymph % (Auto) 40.2 H (20-40) % Mathews % (Auto) 6.2 (2-11) % Eos % (Auto) 1.3 (0-4) % Baso % (Auto) 0.6 (0-2) % Lymph # (Auto) 3.2 (1.2-4.9) X10*3/uL Mathews # (Auto) 0.5 (0.1-1.2) X10*3/uL Eos # (Auto) 0.1 (0.0-0.4) X10*3/uL Baso # (Auto) 0.1 (0.0-0.2) X10*3/uL Abs Immat Gran (auto) 0.02 (0.00-0.03) X10*3/uL Absolute Neuts (auto) 4.1 (2.0-8.3) x10*3/uL Absolute Nucleated RBC 0.000 (0.0-0.012) X10*3/uL Nucleated RBC % (auto) 0.0 (0.0-0.2) /100WBC D-Dimer High Sensitivty NG/ML Sodium (135-145) mmol/L Potassium (3.3-5.1) mmol/L Chloride (96-108) mmol/L Carbon Dioxide (22-29) mmol/L Anion Gap (12-20) BUN (9-16) mg/dL Creatinine (0.5-1.4) mg/dL Estim Creat Clear Calc Estimated GFR Random Glucose (60-115) mg/dL Calcium (8.4-10.2) mg/dL Total Bilirubin (0.0-1.0) mg/dL AST (5-31) U/L ALT (0-31) U/L Alkaline Phosphatase (39-117) U/L Troponin I High Sens (<3.5-17.0) ng/L Total Protein (6.5-8.0) g/dL Albumin (3.5-5.0) g/dL COVID-19 (ALBINO) Negative (Negative) COVID-19 Clin Com See Note Influenza Type A (JELANI) Negative (Negative) Influenza Type B (JELANI) Negative (Negative) Influenza A & B Note See Note 02/14/22 02/14/22 02/14/22 Range/Units 21:17 21:17 21:17 WBC (4.8-10.8) X10*3/uL RBC (4.20-5.50) X10*6/uL Hgb (12.0-16.0) g/dl Hct (37.0-47.0) % MCV (80.0-98.0) fL MCH (27.0-33.0) pg MCHC (31.0-35.0) g/dl RDW (11.0-16.0) % Plt Count (160-400) X10*3/uL MPV (9.4-12.3) fL Immature Gran % (Auto) (0.0-0.4) % Neut % (Auto) (45-73) % Lymph % (Auto) (20-40) % Mathews % (Auto) (2-11) % Eos % (Auto) (0-4) % Baso % (Auto) (0-2) % Lymph # (Auto) (1.2-4.9) X10*3/uL Mathews # (Auto) (0.1-1.2) X10*3/uL Eos # (Auto) (0.0-0.4) X10*3/uL Baso # (Auto) (0.0-0.2) X10*3/uL Abs Immat Gran (auto) (0.00-0.03) X10*3/uL Absolute Neuts (auto) (2.0-8.3) x10*3/uL Absolute Nucleated RBC (0.0-0.012) X10*3/uL Nucleated RBC % (auto) (0.0-0.2) /100WBC D-Dimer High Sensitivty < 150 NG/ML Sodium 140 (135-145) mmol/L Potassium 3.5 (3.3-5.1) mmol/L Chloride 109 H (96-108) mmol/L Carbon Dioxide 23 (22-29) mmol/L Anion Gap 12 (12-20) BUN 14 (9-16) mg/dL Creatinine 0.77 (0.5-1.4) mg/dL Estim Creat Clear Calc 75.7 Estimated GFR > 60 Random Glucose 104 (60-115) mg/dL Calcium 9.1 (8.4-10.2) mg/dL Total Bilirubin 0.4 (0.0-1.0) mg/dL AST 16 (5-31) U/L ALT 17 (0-31) U/L Alkaline Phosphatase 92 (39-117) U/L Troponin I High Sens < 3.5 (<3.5-17.0) ng/L Total Protein 6.8 (6.5-8.0) g/dL Albumin 4.1 (3.5-5.0) g/dL COVID-19 (ALBINO) (Negative) COVID-19 Clin Com Influenza Type A (JELANI) (Negative) Influenza Type B (JELANI) (Negative) Influenza A & B Note Imaging Data Chest x-ray: Attestation: I personally reviewed and interpreted this imaging study as follows: Radiologist's impression: No acute pulmonary process ECG Data Attestation: I personally reviewed and interpreted this ECG as follows: Interpretation: normal sinus rhythm at 71 beats per minute, normal axis deviation,, normal intervals, no ST-T changes, no change from previous EKG. Discharge Plan Discharge Clinical Impression: Asthma, Chest wall pain Patient Disposition: Home, Self-Care Instructions: Chest Wall Pain (ED) Prescriptions: No Action Breo Ellipta 200-25 mcg/dose blister with device 1 inh inhalation DAILY 30 Days Qty: 1 6RF Dupixent Pen 300 mg/2 mL pen injector See Rx Instructions subcut Q2W 28 Days Qty: 4 12RF Rx Instructions: 600 mg initially, then 300 mg subcut every 2 weeks; albuterol sulfate 2.5 mg /3 mL (0.083 %) solution for nebulization 2.5 mg inhalation Q4-6H PRN (Reason: shortness of breath or wheezing) Qty: 90 0RF gabapentin 300 mg capsule 300 mg PO BEDTIME Qty: 90 1RF cetirizine 10 mg tablet 10 mg PO DAILY PRN (Reason: Allergy Symptoms) lidocaine [Lidoderm] 5 % adhesive patch,medicated 1 patch topical DAILY Rx Instructions: 12 HOURS ON 12 HOURS OFF docusate sodium [DOK] 100 mg capsule 100 mg PO BID omeprazole 20 mg capsule,delayed release(DR/EC) 20 mg PO BID montelukast 10 mg tablet 10 mg PO BEDTIME ergocalciferol (vitamin D2) 1,250 mcg (50,000 unit) capsule 1,250 mcg PO REAL polyethylene glycol 3350 17 gram/dose powder 17 g PO DAILY fluticasone propionate 50 mcg/actuation spray,suspension 2 spray intranasal DAILY duloxetine 60 mg capsule,delayed release(DR/EC) 60 mg PO DAILY Atrovent HFA 17 mcg/actuation HFA aerosol inhaler 2 puff inhalation QID PRN (Reason: wheezing) diclofenac sodium 1 % gel 2 g topical QID melatonin 5 mg tablet 5 - 10 mg PO BEDTIME PRN (Reason: insomnia) albuterol sulfate [ProAir HFA] 90 mcg/actuation HFA aerosol inhaler 2 puff inhalation Q4-6H PRN (Reason: Wheezing) Qty: 8.5 0RF azithromycin 250 mg tablet See Rx Instructions .ROUTE .COMPLEX Qty: 6 0RF Rx Instructions: For 250 mg dose pack: take 500 mg today (day 1), then 250 mg for 4 days (days 2-5) atorvastatin 40 mg tablet 1 tab PO BEDTIME baclofen 10 mg tablet 1 tab PO TID PRN (Reason: Spasms) prednisone 20 mg tablet 40 mg PO DAILY Qty: 10 0RF naproxen 500 mg tablet 500 mg PO BID PRN (Reason: pain) Qty: 60 1RF furosemide [Lasix] 20 mg tablet 20 mg PO QAM 30 Days Qty: 30 3RF Incruse Ellipta 62.5 mcg/actuation blister with device 1 inh inhalation DAILY 30 Days Qty: 1 6RF Referrals: Jordan Roman MD [Physician] -
[2022-02-14 21:06] LABS: COVID-19 Test Negative (Negative); IDNOW Serial# 55D5AD1C; Influenza A Negative (Negative); Influenza B2 Negative (Negative)
[2022-02-14] MEDS: Albuterol Sulfate (0.083%) 2.5 MG/3 ML VIAL.NEB 5 MG INHALE (21:15)
[2022-02-14] MEDS: Albuterol/Iprat 2.5/0.5MG 3 ML AMPUL.NEB INHALE (21:15)
[2022-02-14 21:17] VITALS: PULSE 68; O2SAT 96
[2022-02-14 21:22] LABS: MANUAL DIFF FLAG NO
[2022-02-14 21:23] LABS: Basophils Absolute Auto 0.1 X10*3/uL (0.0-0.2); Basophils Percent Auto 0.6 % (0-2); Eosinophils Absolute Auto 0.1 X10*3/uL (0.0-0.4); Eosinophils Percent Auto 1.3 % (0-4); Hematocrit 39.7 % (37.0-47.0); Hemoglobin 13.1 g/dl (12.0-16.0); Imm Gran Abs Auto 0.02 X10*3/uL (0.00-0.03); Imm Gran Pct Auto 0.3 % (0.0-0.4); Lymphocytes Absolute Auto 3.2 X10*3/uL (1.2-4.9); Lymphocytes Percent Auto 40.2 % (20-40); Mean Corpuscular Volume 84.8 fL (80.0-98.0); Mean Platelet Volume 9.4 fL (9.4-12.3); Monocytes Absolute Auto 0.5 X10*3/uL (0.1-1.2); Monocytes Percent Auto 6.2 % (2-11); Neutrophils Absolute Auto 4.1 x10*3/uL (2.0-8.3); Neutrophils Percent Auto 51.4 % (45-73); Platelet Count 242 X10*3/uL (160-400); Red Blood Count 4.68 X10*6/uL (4.20-5.50); Red Cell Distribution Width 13.1 % (11.0-16.0); White Blood Count 7.9 X10*3/uL (4.8-10.8)
[2022-02-14 21:37] LABS: D Dimer High Sensitivity < 150 NG/ML
[2022-02-14 21:43] LABS: Alanine Aminotransferase 17 U/L (0-31); Albumin Level 4.1 g/dL (3.5-5.0); Alkaline Phosphatase 92 U/L (39-117); Anion Gap 12 (12-20); Aspartate Amino Transferase 16 U/L (5-31); Bilirubin Total 0.4 mg/dL (0.0-1.0); Blood Urea Nitrogen 14 mg/dL (9-16); Calcium 9.1 mg/dL (8.4-10.2); Carbon Dioxide 23 mmol/L (22-29); Chloride 109 mmol/L (96-108); Creatinine Clr Calc Pharmacy 75.7; Estimated Glomerular Filt Rate > 60; Glucose Random 104 mg/dL (60-115); Potassium 3.5 mmol/L (3.3-5.1); Sodium 140 mmol/L (135-145); Total Protein 6.8 g/dL (6.5-8.0)
[2022-02-14] MEDS: predniSONE 20 MG TABLET 40 MG PO (21:45)
[2022-02-14 21:50] LABS: Troponin-I High Sensitivity < 3.5 ng/L (<3.5-17.0)
[2022-02-14 22:20] VITALS: BP 105/56; PULSE 89; RESP 20; TEMP 36.6; O2SAT 97
== END 2022-02-14 23:50 | disposition home or self-care (01) ==
PROVIDERS: Emergency Provider Emergency Medicine; PCP Nurse Practitioner Family
DX: J45.909 Unspecified asthma, uncomplicated (principal); R07.89 Other chest pain; Z20.822 Contact with and (suspected) exposure to COVID-19; R06.02 Shortness of breath
CPT/HCPCS: 36415; 71045; 80053; 84484; 85025; 85379; 87502; 87635; 93005; 94640; 94644; 99283; 99284

== ENCOUNTER 2022-02-26 11:46 | Emergency (ER) | payer MEDICAID, SELFPAY ==
--- NOTE | 2022-02-26 | ECG_ITS ---
Test Reason : cp Blood Pressure : / mmHG Vent. Rate : 069 BPM Atrial Rate : 069 BPM P-R Int : 152 ms QRS Dur : 086 ms QT Int : 412 ms P-R-T Axes : 042 011 035 degrees QTc Int : 441 ms Normal sinus rhythm Cannot rule out Anterior infarct (cited on or before 17-MAY-2021) Abnormal ECG When compared with ECG of 14-FEB-2022 20:23, No significant change was found Referred By: Generic ED Physician Electronically Signed By:TRUDY BURROWS
--- NOTE | ~2022-02-26 | XR_ITS ---
EXAMINATION: XR CHEST CLINICAL INFORMATION: Chest pain COMPARISON: Chest radiographs 02/14/2022, 02/06/2022, 09/27/2021 TECHNIQUE: 2 views of the chest were obtained. FINDINGS: The lungs are clear. There is no pneumothorax, pleural reaction, infiltrate, or effusion. The costophrenic sulci are well-defined. The heart is normal in size. The vascularity is normal. The hilar and mediastinal contours are normal. Bony structures again show curvature thoracic spine with some associated degenerative changes and an orthopedic anchor overlying right shoulder. XR/XR chest 2V IMPRESSION: Lungs clear. No acute intrathoracic disease.
[2022-02-26 12:02] VITALS: BP 126/79; PULSE 72; RESP 18; TEMP 37.3; O2SAT 98; BMI 26.9
[2022-02-26 12:04] LABS: MANUAL DIFF FLAG NO
[2022-02-26 12:22] LABS: Anion Gap 12 (12-20); Blood Urea Nitrogen 9 mg/dL (9-16); Calcium 9.2 mg/dL (8.4-10.2); Carbon Dioxide 26 mmol/L (22-29); Chloride 107 mmol/L (96-108); Creatinine Clr Calc Pharmacy 88.6; Estimated Glomerular Filt Rate > 60; Glucose Random 99 mg/dL (60-115); Potassium 3.9 mmol/L (3.3-5.1); Sodium 141 mmol/L (135-145)
[2022-02-26 12:27] LABS: Troponin-I High Sensitivity < 3.5 ng/L (<3.5-17.0)
[2022-02-26 14:56] LABS: Basophils Absolute Auto 0.1 X10*3/uL (0.0-0.2); Basophils Percent Auto 0.9 % (0-2); Eosinophils Absolute Auto 0.1 X10*3/uL (0.0-0.4); Eosinophils Percent Auto 1.3 % (0-4); Hematocrit 40.8 % (37.0-47.0); Hemoglobin 13.3 g/dl (12.0-16.0); Imm Gran Abs Auto 0.02 X10*3/uL (0.00-0.03); Imm Gran Pct Auto 0.3 % (0.0-0.4); Lymphocytes Absolute Auto 2.5 X10*3/uL (1.2-4.9); Lymphocytes Percent Auto 32.6 % (20-40); Mean Corpuscular HGB Conc 32.6 g/dl (31.0-35.0); Mean Corpuscular Hemoglobin 28.2 pg (27.0-33.0); Mean Corpuscular Volume 86.4 fL (80.0-98.0); Mean Platelet Volume 9.7 fL (9.4-12.3); Monocytes Absolute Auto 0.4 X10*3/uL (0.1-1.2); Monocytes Percent Auto 4.6 % (2-11); Neutrophils Absolute Auto 4.6 x10*3/uL (2.0-8.3); Neutrophils Percent Auto 60.3 % (45-73); Platelet Count 265 X10*3/uL (160-400); Red Blood Count 4.72 X10*6/uL (4.20-5.50); White Blood Count 7.7 X10*3/uL (4.8-10.8)
[2022-02-26 17:31] LABS: Troponin-I High Sensitivity < 3.5 ng/L (<3.5-17.0)
--- NOTE | 2022-02-26 18:37 | ED.CHESTPAIN ---
HPI - Chest Pain General Chief Complaint: Chest Pain Stated Complaint: Chest pain sent cardiac pulmonary rehab Time Seen by Provider: 02/26/22 15:16 Source: patient Mode of arrival: ambulatory Limitations: no limitations History of Present Illness HPI narrative: Patient with history of asthma and frequent chest pain for long time sent by pulmonary rehab today for re-evaluation patient is supposed to have a stress test next week. Patient describes pain in mid chest mild heaviness going on since last night no radiation of pain no increased shortness of breath patient feel heartburn sometimes Related Data Home Medications Medication Instructions Recorded Confirmed cetirizine 10 mg tablet 10 mg PO DAILY PRN Allergy Symptoms 11/30/20 11/04/21 diclofenac sodium 1 % topical gel 2 g topical QID 11/30/20 11/04/21 docusate sodium 100 mg capsule 100 mg PO BID 11/30/20 11/04/21 (DOK) duloxetine 60 mg capsule,delayed 60 mg PO DAILY 11/30/20 11/04/21 release ergocalciferol (vitamin D2) 1,250 1,250 mcg PO REAL 11/30/20 11/04/21 mcg (50,000 unit) capsule fluticasone propionate 50 2 spray intranasal DAILY 11/30/20 11/04/21 mcg/actuation nasal spray,suspension ipratropium bromide 17 2 puff inhalation QID PRN wheezing 11/30/20 11/04/21 mcg/actuation HFA aerosol inhaler (Atrovent HFA) lidocaine 5 % topical patch 1 patch topical DAILY 11/30/20 11/04/21 (Lidoderm) melatonin 5 mg tablet 5 - 10 mg PO BEDTIME PRN insomnia 11/30/20 11/04/21 montelukast 10 mg tablet 10 mg PO BEDTIME 11/30/20 11/04/21 omeprazole 20 mg capsule,delayed 20 mg PO BID 11/30/20 11/04/21 release polyethylene glycol 3350 17 17 g PO DAILY 11/30/20 11/04/21 gram/dose oral powder atorvastatin 40 mg tablet 1 tab PO BEDTIME 11/04/21 11/04/21 baclofen 10 mg tablet 1 tab PO TID PRN Spasms 11/04/21 11/04/21 Previous Rx's Medication Instructions Recorded naproxen 500 mg tablet 500 mg PO BID PRN pain #60 tabs 12/20/20 albuterol sulfate 90 mcg/actuation 2 puff inhalation Q4-6H PRN 08/04/21 aerosol inhaler (ProAir HFA) Wheezing #8.5 grams fluticasone furoate 200 1 inh inhalation DAILY 30 days #1 09/19/21 mcg-vilanterol 25 mcg/dose ea inhalation powder (Breo Ellipta) umeclidinium 62.5 mcg/actuation 1 inh inhalation DAILY 30 days #1 09/28/21 blister powder for inhalation ea (Incruse Ellipta) dupilumab 300 mg/2 mL subcutaneous See Rx Instructions subcut Q2W 28 10/02/21 pen injector (Dupixent) days #4 mL prednisone 20 mg tablet 40 mg PO DAILY #10 tabs 11/07/21 albuterol sulfate 2.5 mg (3 mL) inhalation Q4-6H PRN 11/14/21 shortness of breath or wheezing #90 mL gabapentin 300 mg capsule 300 mg PO BEDTIME #90 caps 11/19/21 furosemide 20 mg tablet (Lasix) 20 mg PO QAM 30 days #30 tabs 11/20/21 azithromycin 250 mg tablet See Rx Instructions PO .COMPLEX #6 02/06/22 tabs sucralfate 1 gram tablet 1 g PO TID #90 tabs 02/26/22 Allergies Allergy/AdvReac Type Severity Reaction Status Date / Time pollen extracts [POLLEN] Allergy Unknown RUNNY Verified 02/14/22 20:21 NOSE, ITCHY EYES seasonl allergies Allergy Unknown asthma Uncoded 01/07/22 12:42 attacks Review of Systems Review of Systems: Yes all other systems are reviewed and are negative PMFSH Past Medical History Medical History Anxiety Arthritis COVID-19 Depression Migraine headache Surgical History Hx of cholecystectomy Hx of elbow surgery Hx of hysterectomy Social History Social History Household Members: Spouse Household Members Other:: - [place] Housing: House Do you presently have visiting nurse or other home services: No Alcohol intake: never Patient Tobacco Use Status: Never used Tobacco Second Hand Smoke Exposure: No Use of substances other than those prescribed or required for medical reasons: No Advance Directives: No Advance Directives Information Provided: No Patient : No service: No Current occupational status: unemployed and disabled Current occupation: rt handed Physical Exam Vital Signs: Vital Signs: Last Vital Signs Temp 97.7 F 02/26/22 20:31 Pulse 63 02/26/22 20:31 Resp 16 02/26/22 20:31 BP 111/77 02/26/22 20:31 Pulse Ox 98 02/26/22 20:31 O2 Del Method 02/26/22 20:31 BMI result Body Mass Index 26.9 Appearance: Alert. Oriented X3. No acute distress. Eyes: PERRLA, No Nystagmus ENT: Pharynx normal. Oral Mucosa moist Neck: Normal inspection. Neck supple. CVS: Normal heart rate and rhythm. Pulses normal. Respiratory: No respiratory distress. Equal air entry bilateral, no wheezing/rales/rhonchi Abdomen: Soft and nontender. Bowel sounds are present, no mass palpable, no CVA tenderness Skin: Skin warm and dry. Normal skin color. Normal skin turgor. Extremities: No lower extremity edema. No calf tenderness Neuro: Oriented X 3. No motor deficit. MDM - Chest Pain MDM Narrative Medical decision making narrative: Patient with multiple ED visits for the chest pain previous labs were negative today also 2 sets of cardiac enzymes negative EKG without any ischemic changes D-dimer negative will discharge patient home advised to follow with electrical transmission engineer as scheduled Medical Records Data Attestation: I reviewed the patient's medical records. Lab Data Attestation: I reviewed the patient's lab results. Result diagrams: 02/26/22 12:00 02/26/22 12:00 Labs: Lab Results 02/26/22 02/26/22 02/26/22 Range/Units 12:00 12:00 12:00 WBC 7.7 (4.8-10.8) X10*3/uL RBC 4.72 (4.20-5.50) X10*6/uL Hgb 13.3 (12.0-16.0) g/dl Hct 40.8 (37.0-47.0) % MCV 86.4 (80.0-98.0) fL MCH 28.2 (27.0-33.0) pg MCHC 32.6 (31.0-35.0) g/dl RDW 13.0 (11.0-16.0) % Plt Count 265 (160-400) X10*3/uL MPV 9.7 (9.4-12.3) fL Immature Gran % (Auto) 0.3 (0.0-0.4) % Neut % (Auto) 60.3 (45-73) % Lymph % (Auto) 32.6 (20-40) % [place] % (Auto) 4.6 (2-11) % Eos % (Auto) 1.3 (0-4) % Baso % (Auto) 0.9 (0-2) % Lymph # (Auto) 2.5 (1.2-4.9) X10*3/uL [place] # (Auto) 0.4 (0.1-1.2) X10*3/uL Eos # (Auto) 0.1 (0.0-0.4) X10*3/uL Baso # (Auto) 0.1 (0.0-0.2) X10*3/uL Abs Immat Gran (auto) 0.02 (0.00-0.03) X10*3/uL Absolute Neuts (auto) 4.6 (2.0-8.3) x10*3/uL Absolute Nucleated RBC 0.000 (0.0-0.012) X10*3/uL Nucleated RBC % (auto) 0.0 (0.0-0.2) /100WBC D-Dimer High Sensitivty NG/ML Sodium 141 (135-145) mmol/L Potassium 3.9 (3.3-5.1) mmol/L Chloride 107 (96-108) mmol/L Carbon Dioxide 26 (22-29) mmol/L Anion Gap 12 (12-20) BUN 9 (9-16) mg/dL Creatinine 0.65 (0.5-1.4) mg/dL Estim Creat Clear Calc 88.6 Estimated GFR > 60 Random Glucose 99 (60-115) mg/dL Calcium 9.2 (8.4-10.2) mg/dL Troponin I High Sens < 3.5 (<3.5-17.0) ng/L 02/26/22 02/26/22 Range/Units 16:53 19:09 WBC (4.8-10.8) X10*3/uL RBC (4.20-5.50) X10*6/uL Hgb (12.0-16.0) g/dl Hct (37.0-47.0) % MCV (80.0-98.0) fL MCH (27.0-33.0) pg MCHC (31.0-35.0) g/dl RDW (11.0-16.0) % Plt Count (160-400) X10*3/uL MPV (9.4-12.3) fL Immature Gran % (Auto) (0.0-0.4) % Neut % (Auto) (45-73) % Lymph % (Auto) (20-40) % [place] % (Auto) (2-11) % Eos % (Auto) (0-4) % Baso % (Auto) (0-2) % Lymph # (Auto) (1.2-4.9) X10*3/uL [place] # (Auto) (0.1-1.2) X10*3/uL Eos # (Auto) (0.0-0.4) X10*3/uL Baso # (Auto) (0.0-0.2) X10*3/uL Abs Immat Gran (auto) (0.00-0.03) X10*3/uL Absolute Neuts (auto) (2.0-8.3) x10*3/uL Absolute Nucleated RBC (0.0-0.012) X10*3/uL Nucleated RBC % (auto) (0.0-0.2) /100WBC D-Dimer High Sensitivty 177 NG/ML Sodium (135-145) mmol/L Potassium (3.3-5.1) mmol/L Chloride (96-108) mmol/L Carbon Dioxide (22-29) mmol/L Anion Gap (12-20) BUN (9-16) mg/dL Creatinine (0.5-1.4) mg/dL Estim Creat Clear Calc Estimated GFR Random Glucose (60-115) mg/dL Calcium (8.4-10.2) mg/dL Troponin I High Sens < 3.5 (<3.5-17.0) ng/L ECG Data ECG #1: Attestation: I personally reviewed and interpreted this ECG as follows: Interpretation: Normal sinus rhythm heart rate 69 beats per minute normal interval normal axis no acute ST-T changes no acute ischemia Discharge Plan Discharge Clinical Impression: Atypical chest pain Patient Disposition: Home, Self-Care Instructions: Chest Pain (ED) Additional Instructions: Continue medication as prescribed by PCP and f/u electrical transmission engineer Take sucralfate 3 times a day before meals Prescriptions: New sucralfate 1 gram tablet 1 g PO TID Qty: 90 0RF No Action Breo Ellipta 200-25 mcg/dose blister with device 1 inh inhalation DAILY 30 Days Qty: 1 6RF Dupixent Pen 300 mg/2 mL pen injector See Rx Instructions subcut Q2W 28 Days Qty: 4 12RF Rx Instructions: 600 mg initially, then 300 mg subcut every 2 weeks; albuterol sulfate 2.5 mg /3 mL (0.083 %) solution for nebulization 2.5 mg inhalation Q4-6H PRN (Reason: shortness of breath or wheezing) Qty: 90 0RF gabapentin 300 mg capsule 300 mg PO BEDTIME Qty: 90 1RF cetirizine 10 mg tablet 10 mg PO DAILY PRN (Reason: Allergy Symptoms) lidocaine [Lidoderm] 5 % adhesive patch,medicated 1 patch topical DAILY Rx Instructions: 12 HOURS ON 12 HOURS OFF docusate sodium [DOK] 100 mg capsule 100 mg PO BID omeprazole 20 mg capsule,delayed release(DR/EC) 20 mg PO BID montelukast 10 mg tablet 10 mg PO BEDTIME ergocalciferol (vitamin D2) 1,250 mcg (50,000 unit) capsule 1,250 mcg PO REAL polyethylene glycol 3350 17 gram/dose powder 17 g PO DAILY fluticasone propionate 50 mcg/actuation spray,suspension 2 spray intranasal DAILY duloxetine 60 mg capsule,delayed release(DR/EC) 60 mg PO DAILY Atrovent HFA 17 mcg/actuation HFA aerosol inhaler 2 puff inhalation QID PRN (Reason: wheezing) diclofenac sodium 1 % gel 2 g topical QID melatonin 5 mg tablet 5 - 10 mg PO BEDTIME PRN (Reason: insomnia) albuterol sulfate [ProAir HFA] 90 mcg/actuation HFA aerosol inhaler 2 puff inhalation Q4-6H PRN (Reason: Wheezing) Qty: 8.5 0RF azithromycin 250 mg tablet See Rx Instructions .ROUTE .COMPLEX Qty: 6 0RF Rx Instructions: For 250 mg dose pack: take 500 mg today (day 1), then 250 mg for 4 days (days 2-5) atorvastatin 40 mg tablet 1 tab PO BEDTIME baclofen 10 mg tablet 1 tab PO TID PRN (Reason: Spasms) prednisone 20 mg tablet 40 mg PO DAILY Qty: 10 0RF naproxen 500 mg tablet 500 mg PO BID PRN (Reason: pain) Qty: 60 1RF furosemide [Lasix] 20 mg tablet 20 mg PO QAM 30 Days Qty: 30 3RF Incruse Ellipta 62.5 mcg/actuation blister with device 1 inh inhalation DAILY 30 Days Qty: 1 6RF Interventions: ED Discharge Assessment Last Done: 02/26/22 20:31 Discharge Date/Time: 02/26/22 20:32
[2022-02-26 18:45] VITALS: BP 135/76; PULSE 66; RESP 18; TEMP 36.5; O2SAT 99
--- NOTE | 2022-02-26 18:49 | PC.NURSE ---
patient a&ox3, cardiac cath technician applied nsr, vss, pt c/o 8-05/11 chest pain, call barreto within reach, will continue to monitor
[2022-02-26 19:26] LABS: D Dimer High Sensitivity 177 NG/ML
[2022-02-26 20:31] VITALS: BP 111/77; PULSE 63; RESP 16; TEMP 36.5; O2SAT 98
== END 2022-02-26 20:32 | disposition home or self-care (01) ==
PROVIDERS: Emergency Provider Internal Medicine; PCP Nurse Practitioner Family
DX: R07.89 Other chest pain (principal); J45.909 Unspecified asthma, uncomplicated
CPT/HCPCS: 36415; 71046; 80048; 84484; 85025; 85379; 93005; 99283; 99284

== ENCOUNTER → 2022-03-13 10:44 | Outpatient (BNVA) | payer MEDICAID, SELFPAY | PROVIDERS: PCP Nurse Practitioner Family; Visit Provider Internal Medicine Pulmonary Disease | DX: J45.909 Unspecified asthma, uncomplicated (principal); R06.00 Dyspnea, unspecified; Z91.09 Other allergy status, other than to drugs and biological substances | CPT/HCPCS: 99212 ==

== ENCOUNTER 2022-03-25 13:03 | Emergency (ER) | payer MEDICAID, SELFPAY ==
--- NOTE | ~2022-03-25 | XR_ITS ---
EXAMINATION: XR chest 1V CLINICAL INFORMATION: Reason for Exam sob, hx chf COMPARISON: Prior chest x-ray 02/26/2022 TECHNIQUE: XR chest 1V Lungs and Sabrina: Density projecting over the first costochondral junction probably bony. Faint density projecting over the right lower lobe probably a summation of bony and vascular shadows, cannot rule out underlying nodule or patchy infiltrate. Pleura: Normal. Costophrenic angles are sharp. No pneumothorax. Heart: The heart is normal in size. Mediastinum: The mediastinum is within normal limits.. Bones: Skeletal structures included are normal for patient's age. XR/XR chest 1V IMPRESSION: Faint density projecting over the right lower lobe could be a summation of bone and vascular shadows, cannot rule out underlying lung nodule or patchy infiltrates. Clinical correlation and correlation with follow-up standard chest PA and lateral in one month. Prominent right first costochondral junction. No evidence of failure
--- NOTE | 2022-03-25 13:04 | ECG_ITS ---
Test Reason : cp Blood Pressure : / mmHG Vent. Rate : 077 BPM Atrial Rate : 077 BPM P-R Int : 136 ms QRS Dur : 096 ms QT Int : 428 ms P-R-T Axes : 034 002 050 degrees QTc Int : 484 ms Artifact in tracing Normal sinus rhythm Inferior infarct , age undetermined Abnormal ECG When compared with ECG of 26-FEB-2022 11:48, Nonspecific T wave abnormality now evident in Lateral leads Referred By: Generic ED Physician Electronically Signed By:TRUDY BURROWS
[2022-03-25 13:05] VITALS: BP 137/86; PULSE 75; RESP 18; TEMP 36.1; O2SAT 98; BMI 27.4
[2022-03-25 13:21] LABS: MANUAL DIFF FLAG NO
[2022-03-25 13:22] LABS: Basophils Absolute Auto 0.1 X10*3/uL (0.0-0.2); Basophils Percent Auto 0.6 % (0-2); Eosinophils Absolute Auto 0.2 X10*3/uL (0.0-0.4); Eosinophils Percent Auto 2.2 % (0-4); Hematocrit 41.2 % (37.0-47.0); Hemoglobin 13.6 g/dl (12.0-16.0); Imm Gran Abs Auto 0.02 X10*3/uL (0.00-0.03); Imm Gran Pct Auto 0.3 % (0.0-0.4); Lymphocytes Absolute Auto 2.5 X10*3/uL (1.2-4.9); Lymphocytes Percent Auto 31.9 % (20-40); Mean Corpuscular Hemoglobin 28.1 pg (27.0-33.0); Mean Corpuscular Volume 85.1 fL (80.0-98.0); Mean Platelet Volume 9.3 fL (9.4-12.3); Monocytes Absolute Auto 0.5 X10*3/uL (0.1-1.2); Neutrophils Absolute Auto 4.6 x10*3/uL (2.0-8.3); Platelet Count 237 X10*3/uL (160-400); Red Blood Count 4.84 X10*6/uL (4.20-5.50); Red Cell Distribution Width 12.5 % (11.0-16.0); White Blood Count 7.9 X10*3/uL (4.8-10.8)
[2022-03-25 13:39] LABS: Alanine Aminotransferase 13 U/L (0-31); Albumin Level 4.3 g/dL (3.5-5.0); Alkaline Phosphatase 105 U/L (39-117); Anion Gap 12 (12-20); Aspartate Amino Transferase 15 U/L (5-31); Bilirubin Total 0.4 mg/dL (0.0-1.0); Blood Urea Nitrogen 14 mg/dL (9-16); Calcium 9.5 mg/dL (8.4-10.2); Carbon Dioxide 25 mmol/L (22-29); Chloride 106 mmol/L (96-108); Creatinine Clr Calc Pharmacy 80.8; Estimated Glomerular Filt Rate > 60; Glucose Random 130 mg/dL (60-115); Potassium 3.5 mmol/L (3.3-5.1); Sodium 139 mmol/L (135-145); Total Protein 7.1 g/dL (6.5-8.0)
[2022-03-25 13:42] LABS: B Type Natriuretic Peptide 14 pg/mL (<100); Troponin-I High Sensitivity < 3.5 ng/L (<3.5-17.0)
--- NOTE | 2022-03-25 15:13 | ED_ITS ---
HPI - Chest Pain General Chief Complaint: Chest Pain Stated Complaint: Chest pain/Heart failure Time Seen by Provider: 03/25/22 15:00 Source: patient Mode of arrival: ambulatory Limitations: no limitations History of Present Illness HPI narrative: Patient comes to the emergency room complaining of 2 weeks of chest pain. Patient states that the pain has been continuous for 2 weeks, sometimes it hurts more than other days. Patient states that for 2 weeks, the chest pain is substernal, sometimes radiates towards the left arm, sometimes radiates from the chest to the left leg. Patient states that at the beginning of this month she had a stress test, states that she was told it was normal Related Data Home Medications Medication Instructions Recorded Confirmed cetirizine 10 mg tablet 10 mg PO DAILY PRN Allergy Symptoms 11/30/20 11/04/21 diclofenac sodium 1 % topical gel 2 g topical QID 11/30/20 11/04/21 docusate sodium 100 mg capsule 100 mg PO BID 11/30/20 11/04/21 (DOK) duloxetine 60 mg capsule,delayed 60 mg PO DAILY 11/30/20 11/04/21 release ergocalciferol (vitamin D2) 1,250 1,250 mcg PO REAL 11/30/20 11/04/21 mcg (50,000 unit) capsule fluticasone propionate 50 2 spray intranasal DAILY 11/30/20 11/04/21 mcg/actuation nasal spray,suspension ipratropium bromide 17 2 puff inhalation QID PRN wheezing 11/30/20 11/04/21 mcg/actuation HFA aerosol inhaler (Atrovent HFA) lidocaine 5 % topical patch 1 patch topical DAILY 11/30/20 11/04/21 (Lidoderm) melatonin 5 mg tablet 5 - 10 mg PO BEDTIME PRN insomnia 11/30/20 11/04/21 montelukast 10 mg tablet 10 mg PO BEDTIME 11/30/20 11/04/21 omeprazole 20 mg capsule,delayed 20 mg PO BID 11/30/20 11/04/21 release polyethylene glycol 3350 17 17 g PO DAILY 11/30/20 11/04/21 gram/dose oral powder atorvastatin 40 mg tablet 1 tab PO BEDTIME 11/04/21 11/04/21 baclofen 10 mg tablet 1 tab PO TID PRN Spasms 11/04/21 11/04/21 amitriptyline 50 mg tablet 50 mg PO BEDTIME 03/13/22 buspirone 5 mg tablet 5 mg PO 03/13/22 cyclobenzaprine 10 mg tablet 10 mg PO TID 03/13/22 docusate sodium 100 mg capsule 100 mg PO DAILY 03/13/22 (Colace) empagliflozin 10 mg tablet 10 mg PO DAILY 03/13/22 (Jardiance) hydroxyzine HCl 25 mg tablet 25 mg PO BID PRN 03/13/22 meclizine 25 mg tablet 25 mg PO DAILY PRN 03/13/22 topiramate 50 mg tablet 0 mg PO 03/13/22 Previous Rx's Medication Instructions Recorded naproxen 500 mg tablet 500 mg PO BID PRN pain #60 tabs 12/20/20 albuterol sulfate 90 mcg/actuation 2 puff inhalation Q4-6H PRN 08/04/21 aerosol inhaler (ProAir HFA) Wheezing #8.5 grams fluticasone furoate 200 1 inh inhalation DAILY 30 days #1 09/19/21 mcg-vilanterol 25 mcg/dose ea inhalation powder (Breo Ellipta) umeclidinium 62.5 mcg/actuation 1 inh inhalation DAILY 30 days #1 09/28/21 blister powder for inhalation ea (Incruse Ellipta) dupilumab 300 mg/2 mL subcutaneous See Rx Instructions subcut Q2W 28 10/02/21 pen injector (Dupixent) days #4 mL prednisone 20 mg tablet 40 mg PO DAILY #10 tabs 11/07/21 albuterol sulfate 2.5 mg/3 mL 2.5 mg (3 mL) inhalation Q4-6H PRN 11/14/21 (0.083 %) solution for nebulization shortness of breath or wheezing #90 mL gabapentin 300 mg capsule 300 mg PO BEDTIME #90 caps 11/19/21 sucralfate 1 gram tablet 1 g PO TID #90 tabs 02/26/22 furosemide 20 mg tablet 20 mg PO QAM 30 days #30 tabs 03/06/22 Allergies Allergy/AdvReac Type Severity Reaction Status Date / Time pollen extracts [POLLEN] Allergy Unknown RUNNY Verified 03/13/22 10:54 NOSE, ITCHY EYES seasonl allergies Allergy Unknown asthma Uncoded 01/07/22 12:42 attacks Review of Systems Review of Systems: Constitutional : No Weight loss, No Fever, No Chills, No Night Sweats, No Fatigue, No Malaise ENT/Mouth : No Hearing loss, No Ear Pain, No Nasal Congestion, No Sinus Pain, No Hoarseness, No sore throat, No Rhinorrhea, No Swallowing Difficulty Eyes: No Eye Pain, No Swelling, No Redness, No Foreign Body, No Discharge, No Vision Changes Cardiovascular : Complaining of chest pressure radiating towards her left arm, sometimes radiating towards the left leg, discomfort has been present for 2 weeks constantly., No SOB, No Dyspnea on Exertion, No Orthopnea, No Edema, No Palpitations Respiratory : No Cough, No Sputum, No Wheezing, No Smoke Exposure, No Dyspnea Gastrointestinal : No Nausea, No Vomiting, No Diarrhea, No Constipation, No abdominal Pain, No Hematochezia, No Melena Genitourinary : no irregular bleeding, No Dysuria, No Urinary Frequency, No Hematuria, No Urinary Incontinence, No Urgency, No Flank Pain, No Urinary Flow Changes, No Hesitancy Musculoskeletal : No joint pain, No Myalgias, No Joint Swelling Skin : No Skin Lesions, No rash Neuro : No Weakness, No Numbness, No Paresthesias, No Loss of Consciousness, No Dizziness, No Headache Psych : No Anxiety/Panic, No Depression, No SI/HI/AH/VH, No Social Issues, Heme/Lymph: No Bruising, No Bleeding,No Lymphadenopathy Endocrine : No Polyuria, No Polydipsia, No Temperature Intolerance PMFSH Past Medical History Medical History Anxiety Arthritis Asthma COVID-19 Depression Migraine headache Surgical History Hx of cholecystectomy Hx of elbow surgery Hx of hysterectomy Social History Social History Household Members: Spouse Household Members Other:: - [place] Housing: House Do you presently have visiting nurse or other home services: No Alcohol intake: never Patient Tobacco Use Status: Never used Tobacco Second Hand Smoke Exposure: No service: No Current occupational status: unemployed and disabled Current occupation: rt handed Physical Exam Vital Signs: Vital Signs: Last Vital Signs Temp 96.9 F 03/25/22 13:05 Pulse 75 03/25/22 13:05 Resp 18 03/25/22 13:05 BP 137/86 03/25/22 13:05 Pulse Ox 98 03/25/22 13:05 O2 Del Method 03/25/22 13:05 BMI result Body Mass Index 27.4 Const: Other: Appearance: Alert. Oriented X3. No acute distress. Eyes: Pupils equal, round and reactive to light. ENT: Pharynx normal. Neck: Normal inspection. Neck supple. No lymph nodes noted. No crepitus CVS: Normal heart rate and rhythm. Pulses normal. Normal S1 and S2 Respiratory: No respiratory distress. Breath sounds normal. No Wheezing. No rales Abdomen: Soft and nontender. No rigidity. No distention. Skin: Skin warm and dry. Normal skin color. Normal skin turgor. Extremities: No lower extremity edema. No Lacerations. No Rash Neuro: Oriented X 3. No motor deficit. No sensory deficit. Moving all extremities. No slurred speech. CN 2 through 12 grossly intact Psych: calm, cooperative, normal affect Course Course Course Narrative: I discussed the labs, imaging and EKG with the patient, no acute findings. Yvan zamudio is being walked around the emergency room I reviewed the chest x-ray, no consolidations, no pulmonary edema. Radiology report pending. Patient was ambulated around the emergency room, did not feel dizzy, had no chest pain or shortness of breath, oxygen saturation remained at 98% on room ai r. MDM - Chest Pain Lab Data Result diagrams: 03/25/22 13:16 03/25/22 13:16 Labs: Lab Results 03/25/22 03/25/22 03/25/22 Range/Units 13:16 13:16 13:16 WBC 7.9 (4.8-10.8) X10*3/uL RBC 4.84 (4.20-5.50) X10*6/uL Hgb 13.6 (12.0-16.0) g/dl Hct 41.2 (37.0-47.0) % MCV 85.1 (80.0-98.0) fL MCH 28.1 (27.0-33.0) pg MCHC 33.0 (31.0-35.0) g/dl RDW 12.5 (11.0-16.0) % Plt Count 237 (160-400) X10*3/uL MPV 9.3 L (9.4-12.3) fL Immature Gran % (Auto) 0.3 (0.0-0.4) % Neut % (Auto) 59.0 (45-73) % Lymph % (Auto) 31.9 (20-40) % [place] % (Auto) 6.0 (2-11) % Eos % (Auto) 2.2 (0-4) % Baso % (Auto) 0.6 (0-2) % Lymph # (Auto) 2.5 (1.2-4.9) X10*3/uL [place] # (Auto) 0.5 (0.1-1.2) X10*3/uL Eos # (Auto) 0.2 (0.0-0.4) X10*3/uL Baso # (Auto) 0.1 (0.0-0.2) X10*3/uL Abs Immat Gran (auto) 0.02 (0.00-0.03) X10*3/uL Absolute Neuts (auto) 4.6 (2.0-8.3) x10*3/uL Absolute Nucleated RBC 0.000 (0.0-0.012) X10*3/uL Nucleated RBC % (auto) 0.0 (0.0-0.2) /100WBC Sodium 139 (135-145) mmol/L Potassium 3.5 (3.3-5.1) mmol/L Chloride 106 (96-108) mmol/L Carbon Dioxide 25 (22-29) mmol/L Anion Gap 12 (12-20) BUN 14 D (9-16) mg/dL Creatinine 0.72 (0.5-1.4) mg/dL Estim Creat Clear Calc 80.8 Estimated GFR > 60 Random Glucose 130 H (60-115) mg/dL Calcium 9.5 (8.4-10.2) mg/dL Total Bilirubin 0.4 (0.0-1.0) mg/dL AST 15 (5-31) U/L ALT 13 (0-31) U/L Alkaline Phosphatase 105 (39-117) U/L Troponin I High Sens < 3.5 (<3.5-17.0) ng/L B-Natriuretic Peptide 14 (<100) pg/mL Total Protein 7.1 (6.5-8.0) g/dL Albumin 4.3 (3.5-5.0) g/dL Discharge Plan Discharge Clinical Impression: Atypical chest pain Patient Disposition: Home, Self-Care Instructions: Chest Pain (ED) Additional Instructions: Please follow-up with your primary care physician tomorrow. If you have any worsening or new symptoms, please return to the emergency room or call 911 Prescriptions: No Action Breo Ellipta 200-25 mcg/dose blister with device 1 inh inhalation DAILY 30 Days Qty: 1 6RF Dupixent Pen 300 mg/2 mL pen injector See Rx Instructions subcut Q2W 28 Days Qty: 4 12RF Rx Instructions: 600 mg initially, then 300 mg subcut every 2 weeks; albuterol sulfate 2.5 mg /3 mL (0.083 %) solution for nebulization 2.5 mg inhalation Q4-6H PRN (Reason: shortness of breath or wheezing) Qty: 90 0RF gabapentin 300 mg capsule 300 mg PO BEDTIME Qty: 90 1RF furosemide 20 mg tablet 20 mg PO QAM 30 Days Qty: 30 3RF cetirizine 10 mg tablet 10 mg PO DAILY PRN (Reason: Allergy Symptoms) lidocaine [Lidoderm] 5 % adhesive patch,medicated 1 patch topical DAILY Rx Instructions: 12 HOURS ON 12 HOURS OFF docusate sodium [DOK] 100 mg capsule 100 mg PO BID omeprazole 20 mg capsule,delayed release(DR/EC) 20 mg PO BID montelukast 10 mg tablet 10 mg PO BEDTIME ergocalciferol (vitamin D2) 1,250 mcg (50,000 unit) capsule 1,250 mcg PO REAL polyethylene glycol 3350 17 gram/dose powder 17 g PO DAILY fluticasone propionate 50 mcg/actuation spray,suspension 2 spray intranasal DAILY duloxetine 60 mg capsule,delayed release(DR/EC) 60 mg PO DAILY Atrovent HFA 17 mcg/actuation HFA aerosol inhaler 2 puff inhalation QID PRN (Reason: wheezing) diclofenac sodium 1 % gel 2 g topical QID melatonin 5 mg tablet 5 - 10 mg PO BEDTIME PRN (Reason: insomnia) albuterol sulfate [ProAir HFA] 90 mcg/actuation HFA aerosol inhaler 2 puff inhalation Q4-6H PRN (Reason: Wheezing) Qty: 8.5 0RF sucralfate 1 gram tablet 1 g PO TID Qty: 90 0RF atorvastatin 40 mg tablet 1 tab PO BEDTIME baclofen 10 mg tablet 1 tab PO TID PRN (Reason: Spasms) prednisone 20 mg tablet 40 mg PO DAILY Qty: 10 0RF naproxen 500 mg tablet 500 mg PO BID PRN (Reason: pain) Qty: 60 1RF amitriptyline 50 mg tablet 50 mg PO BEDTIME buspirone 5 mg tablet 5 mg PO topiramate 50 mg tablet 0 mg PO Jardiance 10 mg tablet 10 mg PO DAILY meclizine 25 mg tablet 25 mg PO DAILY PRN docusate sodium [Colace] 100 mg capsule 100 mg PO DAILY cyclobenzaprine 10 mg tablet 10 mg PO TID hydroxyzine HCl 25 mg tablet 25 mg PO BID PRN Incruse Ellipta 62.5 mcg/actuation blister with device 1 inh inhalation DAILY 30 Days Qty: 1 6RF
--- NOTE | 2022-03-25 15:45 | PC.NURSE ---
xrayt bedside. This RN delegated ambulation/02 trial to tech. Pt appears comfortable, speaking in clear full sentences. Denies chest pain at this time and denies SOB at this time. Daughter bedside. Callbell within reach. Pt able to return demonstrate proper use of callbell and denies dizziness at this time
--- NOTE | 2022-03-25 16:09 | PC.NURSE ---
upon ambulation trial pt stayed at 98% RA and HR remained at 80
--- NOTE | 2022-03-25 16:11 | PC.NURSE ---
MD Mauro aware of pt ambulation trial at this time
[2022-03-25 16:34] VITALS: BP 132/80; PULSE 78; RESP 16; O2SAT 97
== END 2022-03-25 16:35 | disposition home or self-care (01) ==
PROVIDERS: Emergency Provider Emergency Medicine; PCP Nurse Practitioner Family
DX: R07.89 Other chest pain (principal); R06.02 Shortness of breath; Z79.899 Other long term (current) drug therapy
CPT/HCPCS: 36415; 71045; 80053; 83880; 84484; 85025; 93005; 99283

== ENCOUNTER 2022-04-10 13:01 | Outpatient (REF) | payer MEDICAID, SELFPAY ==
--- NOTE | ~2022-04-10 | XR_ITS ---
EXAMINATION: XR HIP, RIGHT CLINICAL INFORMATION: Pain right hip. COMPARISON: None TECHNIQUE: Two views of the right hip and AP pelvis. FINDINGS: AP Pelvis: There is normal symmetry of bilateral hip joints and SI joints. No fracture or dislocation or bony abnormality seen. AP and Frog-Leg Views Right Hip: There is loss of right hip joint space without bony erosive changes. No acute fracture, dislocation seen. There is mild right acetabular spurring. XR/XR hip RT w PEL1V IMPRESSION: Unremarkable AP pelvis and mild degenerative spurring right acetabulum. No visible acute fracture or dislocation seen.
== END 2022-04-10 13:02 | disposition home or self-care (01) ==
LOC: HO.HOSX 13:01
PROVIDERS: Visit Provider Physician Assistant
DX: M70.61 Trochanteric bursitis, right hip (principal)
CPT/HCPCS: 20610; 73502; 99202; J1040

== ENCOUNTER → 2022-06-20 10:29 | Outpatient (BNVA) | payer MEDICAID, SELFPAY | PROVIDERS: PCP Nurse Practitioner Family; Visit Provider Nurse Practitioner Family | DX: M79.641 Pain in right hand (principal); M79.642 Pain in left hand; M54.2 Cervicalgia | CPT/HCPCS: 99212 ==

== ENCOUNTER → 2022-07-09 10:39 | Outpatient (BNVA) | payer MEDICAID, SELFPAY | PROVIDERS: PCP Nurse Practitioner Family; Visit Provider Internal Medicine Pulmonary Disease | DX: J45.909 Unspecified asthma, uncomplicated (principal); Z91.09 Other allergy status, other than to drugs and biological substances | CPT/HCPCS: 99212 ==

== ENCOUNTER 2022-09-07 01:29 | Emergency (ER) | payer MEDICAID, SELFPAY ==
--- NOTE | ~2022-09-07 | CT_ITS ---
EXAMINATION: CT ABDOMEN AND PELVIS WITHOUT CONTRAST CLINICAL INFORMATION: Left flank pain COMPARISON: 06/10/2019 TECHNIQUE: Multidetector volumetric imaging was performed from the superior aspect of the liver through the pubic symphysis. Sagittal and coronal reformatted images were obtained on the technologist's workstation. This CT examination was performed using dose optimization techniques as appropriate, variously including the following: *Automated exposure control *Adjustment of mA and/or kV according to patient size (this includes techniques or standardized protocols for targeted exams where dose is matched to indication/reason for exam; i.e. extremities or head) *Use of iterative reconstruction technique DLP: 557 mGy-cm FINDINGS: LUNG BASES: The visualized lung bases are unremarkable. LIVER, GALLBLADDER, AND BILIARY TREE: The liver is normal in size, shape, and attenuation. No focal hepatic lesion or biliary ductal dilatation is present. Cholecystectomy. PANCREAS: Unremarkable. SPLEEN: Unremarkable. ADRENAL GLANDS: Unremarkable. KIDNEYS AND URETERS: Bilateral duplex kidneys and duplicated ureters. It is unclear where or if the right ureters join throughout the course. The left ureters are suspected to be entirely duplicated, as there is mild hydronephrosis of isolated to the lower pole moiety on the left. The left lower pole moiety ureter shows mild dilatation leading up to a 2 mm calculus in the distal ureter (see rivera images). There is a punctate nonobstructive calculus in the left upper pole moiety. No perinephric stranding. BLADDER: Unremarkable. GASTROINTESTINAL TRACT: Small sliding-type hiatal hernia. Otherwise, no bowel related abnormalities. Normal appendix. ABDOMINAL WALL: No significant hernia is appreciated. LYMPH NODES: Normal. VASCULAR: Unremarkable. PELVIC VISCERA: Hysterectomy. Ovaries are unremarkable. OSSEOUS STRUCTURES: No acute or suspicious osseous abnormalities. CT/CT abdomen pelvis wo IV con IMPRESSION: * There is a 2 mm calculus within the distal left ureter associated with mild hydroureteronephrosis involving the lower pole moiety of the duplex kidney. * Bilateral duplex kidneys and duplicated ureters. It is unclear where or if the right ureters join at any point during their course. The left ureters are suspected to be entirely duplicated, as there is mild hydronephrosis of isolated to the lower pole moiety on the left. * There is a punctate nonobstructive calculus in the left upper pole moiety. * Cholecystectomy and hysterectomy. Fleischner guidelines were followed.
[2022-09-07 01:37] VITALS: BP 119/84; PULSE 82; RESP 18; TEMP 36.2; O2SAT 97; BMI 26.0
[2022-09-07 02:04] LABS: Basophils Absolute Auto 0.1 X10*3/uL (0.0-0.2); Basophils Percent Auto 0.4 % (0-2); Eosinophils Percent Auto 0.3 % (0-4); Hematocrit 42.2 % (37.0-47.0); Hemoglobin 14.3 g/dl (12.0-16.0); Imm Gran Abs Auto 0.05 X10*3/uL (0.00-0.03); Imm Gran Pct Auto 0.4 % (0.0-0.4); Lymphocytes Absolute Auto 1.8 X10*3/uL (1.2-4.9); Lymphocytes Percent Auto 12.8 % (20-40); MANUAL DIFF FLAG NO; Mean Corpuscular HGB Conc 33.9 g/dl (31.0-35.0); Mean Corpuscular Hemoglobin 28.7 pg (27.0-33.0); Mean Corpuscular Volume 84.7 fL (80.0-98.0); Mean Platelet Volume 9.5 fL (9.4-12.3); Monocytes Absolute Auto 0.5 X10*3/uL (0.1-1.2); Monocytes Percent Auto 3.5 % (2-11); Neutrophils Absolute Auto 11.5 x10*3/uL (2.0-8.3); Neutrophils Percent Auto 82.6 % (45-73); Platelet Count 227 X10*3/uL (160-400); Red Blood Count 4.98 X10*6/uL (4.20-5.50); Red Cell Distribution Width 12.4 % (11.0-16.0); White Blood Count 13.9 X10*3/uL (4.8-10.8)
[2022-09-07 02:13] LABS: Glucose, Whole Blood 141 mg/dL (60-115)
--- NOTE | 2022-09-07 02:29 | PC.NURSE ---
Pt aox4. Restless. Reports left side flank pain that radiates to the lower abd. Pt reports feeling the urge to urinate with no success. Pt reports pain 10/10. Awaiting lab results and aware of plan of care.
[2022-09-07 02:32] LABS: Alanine Aminotransferase 16 U/L (0-31); Albumin Level 4.5 g/dL (3.5-5.0); Alkaline Phosphatase 121 U/L (39-117); Anion Gap 16 (12-20); Aspartate Amino Transferase 20 U/L (5-31); Bilirubin Total 0.4 mg/dL (0.0-1.0); Blood Urea Nitrogen 17 mg/dL (9-16); Calcium 9.7 mg/dL (8.4-10.2); Carbon Dioxide 23 mmol/L (22-29); Chloride 104 mmol/L (96-108); Creatinine Clr Calc Pharmacy 72.8; Estimated Glomerular Filt Rate > 60; Glucose Random 141 mg/dL (60-115); Potassium 3.9 mmol/L (3.3-5.1); Sodium 139 mmol/L (135-145); Total Protein 7.6 g/dL (6.5-8.0)
[2022-09-07 02:42] LABS: Appearance Urine Cloudy; Color Urine Yellow; Glucose Urine UA Negative (Negative); Leukocyte Esterase Urine Negative (Negative); Nitrite Urine Negative (Negative); PH 8.5 (5.0-9.0); UMIC TRIGGER UACC YES; Urine Blood Negative (Negative); Urine Ketones Trace mg/dL (Negative); Urine Protein 30 (1+) mg/dL (Neg-Trace)
[2022-09-07 02:44] LABS: Bacteria Urine Trace (None Seen); Hyaline Casts Urine 0-2 /LPF (0-2); WBC Urine 0-5 /HPF (0-5)
--- NOTE | 2022-09-07 02:56 | ED_ITS ---
HPI - Abdominal Pain General Chief Complaint: Abdominal Pain Stated Complaint: Flank pain Time Seen by Provider: 09/07/22 01:52 Source: patient Mode of arrival: ambulatory History of Present Illness HPI narrative: 57-year-old female states that she began feeling intermittent sharp pain in the left mid flank that then progressed to more constant pain with radiation into the left groin and a few episodes of nausea and vomiting. Patient states she then developed difficulty urinating as well as chills but is unsure about any fevers. Related Data Home Medications Medication Instructions Recorded Confirmed cetirizine 10 mg tablet 10 mg PO DAILY PRN Allergy Symptoms 11/30/20 06/20/22 diclofenac sodium 1 % topical gel 2 g topical QID 11/30/20 06/20/22 duloxetine 60 mg capsule,delayed 60 mg PO DAILY 11/30/20 06/20/22 release ergocalciferol (vitamin D2) 1,250 1,250 mcg PO REAL 11/30/20 06/20/22 mcg (50,000 unit) capsule fluticasone propionate 50 2 spray intranasal DAILY 11/30/20 06/20/22 mcg/actuation nasal spray,suspension ipratropium bromide 17 2 puff inhalation QID PRN wheezing 11/30/20 06/20/22 mcg/actuation HFA aerosol inhaler (Atrovent HFA) lidocaine 5 % topical patch 1 patch topical DAILY 11/30/20 06/20/22 (Lidoderm) melatonin 5 mg tablet 5 - 10 mg PO BEDTIME PRN insomnia 11/30/20 06/20/22 montelukast 10 mg tablet 10 mg PO BEDTIME 11/30/20 06/20/22 omeprazole 20 mg capsule,delayed 20 mg PO BID 11/30/20 06/20/22 release polyethylene glycol 3350 17 17 g PO DAILY 11/30/20 06/20/22 gram/dose oral powder atorvastatin 40 mg tablet 1 tab PO BEDTIME 11/04/21 06/20/22 baclofen 10 mg tablet 1 tab PO TID PRN Spasms 11/04/21 06/20/22 amitriptyline 50 mg tablet 50 mg PO BEDTIME 03/13/22 06/20/22 buspirone 5 mg tablet 5 mg PO 03/13/22 06/20/22 cyclobenzaprine 10 mg tablet 10 mg PO TID 03/13/22 06/20/22 docusate sodium 100 mg capsule 100 mg PO DAILY 03/13/22 06/20/22 (Colace) hydroxyzine HCl 25 mg tablet 25 mg PO BID PRN 03/13/22 06/20/22 meclizine 25 mg tablet 25 mg PO DAILY PRN 03/13/22 06/20/22 topiramate 50 mg tablet 0 mg PO 03/13/22 06/20/22 empagliflozin 10 mg tablet 10 mg PO DAILY 04/10/22 06/20/22 (Jardiance) Previous Rx's Medication Instructions Recorded naproxen 500 mg tablet 500 mg PO BID PRN pain #60 tabs 12/20/20 albuterol sulfate 90 mcg/actuation 2 puff inhalation Q4-6H PRN 08/04/21 aerosol inhaler (ProAir HFA) Wheezing #8.5 grams albuterol sulfate 2.5 mg/3 mL 2.5 mg (3 mL) inhalation Q4-6H PRN 11/14/21 (0.083 %) solution for nebulization shortness of breath or wheezing #90 mL sucralfate 1 gram tablet 1 g PO TID #90 tabs 02/26/22 furosemide 20 mg tablet 20 mg PO QAM 30 days #30 tabs 03/06/22 fluticasone furoate 200 1 ea inhalation DAILY #60 ea 04/03/22 mcg-vilanterol 25 mcg/dose inhalation powder (Breo Ellipta) umeclidinium 62.5 mcg/actuation 1 inh inhalation DAILY #30 ea 05/06/22 blister powder for inhalation (Incruse Ellipta) dupilumab 300 mg/2 mL subcutaneous 300 mg (2 mL) subcut Q2W #4 mL 07/22/22 pen injector ([employer]) gabapentin 300 mg capsule 300 mg PO BEDTIME #90 caps 08/09/22 cefdinir 300 mg capsule 300 mg PO BID 5 days #10 caps 09/07/22 ketorolac 10 mg tablet 10 mg PO Q6H PRN pain 5 days #20 09/07/22 tabs tamsulosin 0.4 mg capsule (Flomax) 0.4 mg PO BEDTIME #4 caps 09/07/22 Allergies Allergy/AdvReac Type Severity Reaction Status Date / Time pollen extracts [POLLEN] Allergy Unknown RUNNY Verified 07/09/22 10:42 NOSE, ITCHY EYES seasonl allergies Allergy Unknown asthma Uncoded 06/20/22 11:01 attacks Review of Systems Review of Systems Pertinent positives and negatives as stated in HPI [facility] Past Medical History Source: nursing notes reviewed Medical History Anxiety Arthritis Asthma COVID-19 Depression Migraine headache Surgical History Hx of cholecystectomy Hx of elbow surgery Hx of hysterectomy Social History Social History Household Members: Spouse Household Members Other:: - [place] Housing: House Do you presently have visiting nurse or other home services: No Alcohol intake: never Patient Tobacco Use Status: Never used Tobacco Second Hand Smoke Exposure: No Advance Directives: No Advance Directives Information Provided: No service: No Current occupational status: unemployed and disabled Current occupation: rt handed Physical Exam ED Vital Signs: Vital Signs - 24 hr 09/07/22 01:37 09/07/22 03:55 Temperature 97.2 F 98.2 F Pulse Rate 82 75 Respiratory Rate 18 14 Blood Pressure 119/84 117/69 Pulse Oximetry 97 95 Oxygen Delivery Method Room Air Room Air BMI result Body Mass Index 26.0 VITAL SIGNS: Reviewed. GENERAL: Well developed, well nourished, in no acute distress. HEAD: Normocephalic/atraumatic EYES: PERRLA, EOMI EARS: Ext canals without abnormality OROPHARYNX: no oral lesions noted, posterior pharynx clear LUNGS: Normal breath sounds. No adventitious sounds or accessory muscle use. SpO2<97> CARDIOVASCULAR: Regular rate and rhythm without noted murmurs ABDOMEN: Soft, non-tender, non-distended with bowel sounds. MUSCULOSKELETAL: No tenderness, deformities, or effusions noted on gross inspection. EXTREMITIES: No cyanosis, clubbing or edema. SKIN: Inspection of the skin reveals no rashes NEUROLOGIC: Alert and oriented x 4. Strength and sensation to light touch were grossly intact x 4. Medical Decision Making Medical Decision Making MDM Narrative: 57-year-old female with left flank pain. I have reviewed and interpreted the entire workup as patient having obstructive uropathy with associated hydronephrosis and likely underlying infection but no evidence NARESH. Patient received 2 L of IV fluids, pain medication, and antibiotics. At this time patient's pain is well controlled, she is producing urine and she will be discharged home in stable condition with pain medication, a referral to follow-up with urology. Differential Diagnosis Differential Diagnoses: The differential diagnosis associated with the presentation includes Renal colic, UTI, low clinical suspicion for diverticulitis Lab Data MDM Lab Attestation statement: I reviewed the patient's lab results. Please see discussion above 09/07/22 01:58 09/07/22 01:58 Labs: Lab Results 09/07/22 09/07/22 09/07/22 Range/Units 01:58 01:58 02:07 WBC 13.9 H (4.8-10.8) X10*3/uL RBC 4.98 (4.20-5.50) X10*6/uL Hgb 14.3 (12.0-16.0) g/dl Hct 42.2 (37.0-47.0) % MCV 84.7 (80.0-98.0) fL MCH 28.7 (27.0-33.0) pg MCHC 33.9 (31.0-35.0) g/dl RDW 12.4 (11.0-16.0) % Plt Count 227 (160-400) X10*3/uL MPV 9.5 (9.4-12.3) fL Immature Gran % (Auto) 0.4 (0.0-0.4) % Neut % (Auto) 82.6 H (45-73) % Lymph % (Auto) 12.8 L (20-40) % Day % (Auto) 3.5 (2-11) % Eos % (Auto) 0.3 (0-4) % Baso % (Auto) 0.4 (0-2) % Lymph # (Auto) 1.8 (1.2-4.9) X10*3/uL Day # (Auto) 0.5 (0.1-1.2) X10*3/uL Eos # (Auto) 0.0 (0.0-0.4) X10*3/uL Baso # (Auto) 0.1 (0.0-0.2) X10*3/uL Abs Immat Gran (auto) 0.05 H (0.00-0.03) X10*3/uL Absolute Neuts (auto) 11.5 H (2.0-8.3) x10*3/uL Absolute Nucleated RBC 0.000 (0.0-0.012) X10*3/uL Nucleated RBC % (auto) 0.0 (0.0-0.2) /100WBC Sodium 139 (135-145) mmol/L Potassium 3.9 (3.3-5.1) mmol/L Chloride 104 (96-108) mmol/L Carbon Dioxide 23 (22-29) mmol/L Anion Gap 16 (12-20) BUN 17 H (9-16) mg/dL Creatinine 0.80 (0.5-1.4) mg/dL Estim Creat Clear Calc 72.8 Estimated GFR > 60 POC Glucose 141 H (60-115) mg/dL Random Glucose 141 H (60-115) mg/dL Calcium 9.7 (8.4-10.2) mg/dL Total Bilirubin 0.4 (0.0-1.0) mg/dL AST 20 (5-31) U/L ALT 16 (0-31) U/L Alkaline Phosphatase 121 H (39-117) U/L Total Protein 7.6 (6.5-8.0) g/dL Albumin 4.5 (3.5-5.0) g/dL Urine Color Urine Appearance Urine pH (5.0-9.0) Ur Specific [place] (1.005-1.025) Urine Protein (Neg-Trace) mg/dL Urine Glucose (UA) (Negative) mg/dL Urine Ketones (Negative) mg/dL Urine Blood (Negative) Urine Nitrite (Negative) Ur Leukocyte Esterase (Negative) Urine RBC (0-2) /HPF Urine WBC (0-5) /HPF Ur Squamous Epith Cells (0-2) /HPF Urine Bacteria (None Seen) Hyaline Casts (0-2) /LPF 09/07/22 Range/Units 02:34 WBC (4.8-10.8) X10*3/uL RBC (4.20-5.50) X10*6/uL Hgb (12.0-16.0) g/dl Hct (37.0-47.0) % MCV (80.0-98.0) fL MCH (27.0-33.0) pg MCHC (31.0-35.0) g/dl RDW (11.0-16.0) % Plt Count (160-400) X10*3/uL MPV (9.4-12.3) fL Immature Gran % (Auto) (0.0-0.4) % Neut % (Auto) (45-73) % Lymph % (Auto) (20-40) % Day % (Auto) (2-11) % Eos % (Auto) (0-4) % Baso % (Auto) (0-2) % Lymph # (Auto) (1.2-4.9) X10*3/uL Day # (Auto) (0.1-1.2) X10*3/uL Eos # (Auto) (0.0-0.4) X10*3/uL Baso # (Auto) (0.0-0.2) X10*3/uL Abs Immat Gran (auto) (0.00-0.03) X10*3/uL Absolute Neuts (auto) (2.0-8.3) x10*3/uL Absolute Nucleated RBC (0.0-0.012) X10*3/uL Nucleated RBC % (auto) (0.0-0.2) /100WBC Sodium (135-145) mmol/L Potassium (3.3-5.1) mmol/L Chloride (96-108) mmol/L Carbon Dioxide (22-29) mmol/L Anion Gap (12-20) BUN (9-16) mg/dL Creatinine (0.5-1.4) mg/dL Estim Creat Clear Calc Estimated GFR POC Glucose (60-115) mg/dL Random Glucose (60-115) mg/dL Calcium (8.4-10.2) mg/dL Total Bilirubin (0.0-1.0) mg/dL AST (5-31) U/L ALT (0-31) U/L Alkaline Phosphatase (39-117) U/L Total Protein (6.5-8.0) g/dL Albumin (3.5-5.0) g/dL Urine Color Yellow Urine Appearance Cloudy Urine pH 8.5 (5.0-9.0) Ur Specific [place] 1.020 (1.005-1.025) Urine Protein 30 (1+) H (Neg-Trace) mg/dL Urine Glucose (UA) Negative (Negative) mg/dL Urine Ketones Trace (Negative) mg/dL Urine Blood Negative (Negative) Urine Nitrite Negative (Negative) Ur Leukocyte Esterase Negative (Negative) Urine RBC 3-5 H (0-2) /HPF Urine WBC 0-5 (0-5) /HPF Ur Squamous Epith Cells 3-5 (0-2) /HPF Urine Bacteria Trace (None Seen) Hyaline Casts 0-2 (0-2) /LPF Radiology Impression Discussion of test interpretation with radiology: I discussed test interpretation with the radiologist Radiologist Impression: My interpretation is in agreement with radiology's impression other imaging study. External Record Review External record reviewed: Outpatient record and Prior outpatient labs Medications Administered Generic Name Dose Route Start Last Admin Trade Name Freq PRN Reason Stop Dose Admin Sodium Chloride 1,000 mls @ 999 mls/hr 09/07/22 05:00 09/07/22 05:01 Ns IV 09/07/22 06:00 999 mls/hr .Q1H1M JOAQUIM Administration Discontinued Medications Generic Name Dose Route Start Last Admin Trade Name Freq PRN Reason Stop Dose Admin Fentanyl 25 mcg 09/07/22 04:09 09/07/22 04:16 Fentanyl Citrate/Pf 100 Mcg/2 Ml Vial IVPUSH 09/07/22 04:10 25 mcg ONCE ONE Administration Protocol Sodium Chloride 1,000 mls @ 999 mls/hr 09/07/22 03:00 09/07/22 04:18 Ns IV 09/07/22 04:00 Infused .Q1H1M JOAQUIM Infusion Ketorolac Tromethamine 15 mg 09/07/22 02:54 09/07/22 02:58 Ketorolac Tromethamine 30 Mg/Ml Vial IVPUSH 09/07/22 02:55 15 mg ONCE ONE Administration Ondansetron HCl 4 mg 09/07/22 02:56 09/07/22 03:02 Ondansetron Hcl 4 Mg/2 Ml Vial IVPUSH 09/07/22 02:57 4 mg ONCE ONE Administration Discharge Plan Discharge Clinical Impression: Obstructed, uropathy, Renal colic, Hydronephrosis Patient Disposition: Home, Self-Care Instructions: Renal Colic (ED), Hydronephrosis (ED) Additional Instructions: 1. Resume all home medications as prescribed. 2. You have been provided with a Urology referral and should call their office on Friday. In addition, you have been provided with 2 prescriptions to help assist you in passage of the kidney stone. 3. Please follow-up with primary care provider on Friday morning. Return to the ER for any worsening symptoms. Prescriptions: New cefdinir 300 mg capsule 300 mg PO BID 5 Days Qty: 10 0RF ketorolac 10 mg tablet 10 mg PO Q6H PRN (Reason: pain) 5 Days Qty: 20 0RF tamsulosin [Flomax] 0.4 mg capsule 0.4 mg PO BEDTIME Qty: 4 0RF No Action albuterol sulfate 2.5 mg /3 mL (0.083 %) solution for nebulization 2.5 mg inhalation Q4-6H PRN (Reason: shortness of breath or wheezing) Qty: 90 0RF furosemide 20 mg tablet 20 mg PO QAM 30 Days Qty: 30 3RF Breo Ellipta 200-25 mcg/dose blister with device 1 ea inhalation DAILY Qty: 60 6RF Incruse Ellipta 62.5 mcg/actuation blister with device 1 inh inhalation DAILY Qty: 30 6RF Dupixent Pen 300 mg/2 mL pen injector 300 mg subcut Q2W Qty: 4 11RF gabapentin 300 mg capsule 300 mg PO BEDTIME Qty: 90 3RF cetirizine 10 mg tablet 10 mg PO DAILY PRN (Reason: Allergy Symptoms) lidocaine [Lidoderm] 5 % adhesive patch,medicated 1 patch topical DAILY Rx Instructions: 12 HOURS ON 12 HOURS OFF omeprazole 20 mg capsule,delayed release(DR/EC) 20 mg PO BID montelukast 10 mg tablet 10 mg PO BEDTIME ergocalciferol (vitamin D2) 1,250 mcg (50,000 unit) capsule 1,250 mcg PO REAL polyethylene glycol 3350 17 gram/dose powder 17 g PO DAILY fluticasone propionate 50 mcg/actuation spray,suspension 2 spray intranasal DAILY duloxetine 60 mg capsule,delayed release(DR/EC) 60 mg PO DAILY Atrovent HFA 17 mcg/actuation HFA aerosol inhaler 2 puff inhalation QID PRN (Reason: wheezing) diclofenac sodium 1 % gel 2 g topical QID melatonin 5 mg tablet 5 - 10 mg PO BEDTIME PRN (Reason: insomnia) albuterol sulfate [ProAir HFA] 90 mcg/actuation HFA aerosol inhaler 2 puff inhalation Q4-6H PRN (Reason: Wheezing) Qty: 8.5 0RF sucralfate 1 gram tablet 1 g PO TID Qty: 90 0RF atorvastatin 40 mg tablet 1 tab PO BEDTIME baclofen 10 mg tablet 1 tab PO TID PRN (Reason: Spasms) naproxen 500 mg tablet 500 mg PO BID PRN (Reason: pain) Qty: 60 1RF amitriptyline 50 mg tablet 50 mg PO BEDTIME buspirone 5 mg tablet 5 mg PO topiramate 50 mg tablet 0 mg PO meclizine 25 mg tablet 25 mg PO DAILY PRN docusate sodium [Colace] 100 mg capsule 100 mg PO DAILY cyclobenzaprine 10 mg tablet 10 mg PO TID hydroxyzine HCl 25 mg tablet 25 mg PO BID PRN Jardiance 10 mg tablet 10 mg PO DAILY Referrals: Ethel Harper MD [Physician] - (57-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
[2022-09-07] MEDS: Ketorolac Tromethamine 30 MG/ML VIAL 15 MG IVPUSH (02:58)
[2022-09-07] MEDS: ondansetron HCL 4 MG/2 ML VIAL IVPUSH (03:02)
[2022-09-07] MEDS: 0.9 % Sodium Chloride 1,000 ML 999 ML IV ×2 (03:03→05:01)
[2022-09-07 03:55] VITALS: BP 117/69; PULSE 75; RESP 14; TEMP 36.8; O2SAT 95
[2022-09-07] MEDS: fentaNYL citrate/PF 100 MCG/2 ML VIAL 25 MCG IVPUSH (04:16)
--- NOTE | 2022-09-07 04:59 | PC.NURSE ---
Pt aox3 resting at the bedside. Calm and cooperative. Reports pain has resolved at this time, 0/10. Second liter of fluid started as ordered.
[2022-09-07] MEDS: cefTRIAXone sodium 1 GM in 0.9 % Sodium Chloride 50 ML IV (05:28)
[2022-09-07 05:54] VITALS: BP 107/75; PULSE 82; RESP 12; TEMP 36.4; O2SAT 98
--- NOTE | 2022-09-07 06:03 | PC.NURSE ---
Ab completed. IV line removed. Pt tolerated well. Discharge instructions reviewed wt pt. Pt verbalizes understanding.
== END 2022-09-07 06:04 | disposition home or self-care (01) ==
PROVIDERS: Emergency Provider Student in an Organized Health Care Education/Training Program
DX: N13.2 Hydronephrosis with renal and ureteral calculous obstruction (principal)
CPT/HCPCS: 36415; 74176; 80053; 81001; 82947; 85025; 96361; 96374; 96375; 99284; J0696; J1885; J2405; J3010

== ENCOUNTER 2022-09-10 13:00 | Inpatient (IN) | payer MEDICAID, SELFPAY ==
[2022-09-10] VITALS (7 sets, daily range): BP systolic 110–145; BP diastolic 61–84; PULSE 68–100; RESP 16–19; TEMP 36.1–36.6; O2SAT 94–100; BMI 26.9
--- NOTE | ~2022-09-10 | CT_ITS ---
EXAMINATION: CT ABDOMEN AND PELVIS WITHOUT CONTRAST CLINICAL INFORMATION: Worsening abdominal pain. Recent hydronephrosis and kidney stones COMPARISON: CT abdomen and pelvis 09/07/2022, renal ultrasound 09/10/2022 TECHNIQUE: Multidetector volumetric imaging was performed from the superior aspect of the liver through the pubic symphysis. Sagittal and coronal reformatted images were obtained on the technologist's workstation. This CT examination was performed using dose optimization techniques as appropriate, variously including the following: *Automated exposure control *Adjustment of mA and/or kV according to patient size (this includes techniques or standardized protocols for targeted exams where dose is matched to indication/reason for exam; i.e. extremities or head) *Use of iterative reconstruction technique DLP: 505 mGy-cm FINDINGS: LUNG BASES: The visualized lung bases are unremarkable. LIVER, GALLBLADDER, AND BILIARY TREE: The liver is normal in size, shape, and attenuation. No focal hepatic lesion or biliary ductal dilatation is present. Status post cholecystectomy. PANCREAS: Unremarkable. SPLEEN: Unremarkable. ADRENAL GLANDS: Unremarkable. KIDNEYS AND URETERS: Duplicated bilateral renal collecting system. Mild dilation of the left lower pole moiety and the left ureter throughout its course, nearly identical to prior. There appears to be mild accompanying urothelial thickening. The previously seen 2 mm left distal ureteral stone suspected on the prior exam is not identified currently. No ureteral calculi are seen. Punctate nonobstructing left upper pole calculus is redemonstrated. No renal lesion. No perinephric stranding. BLADDER: Unremarkable. GASTROINTESTINAL TRACT: No dilated bowel loops. No bowel wall thickening. Normal appendix. No free air or ascites. ABDOMINAL WALL: No significant hernia is appreciated. LYMPH NODES: No lymphadenopathy. VASCULAR: Unremarkable. PELVIC VISCERA: Patient appears to be posthysterectomy. OSSEOUS STRUCTURES: No acute fracture or suspicious osseous lesion. T9 vertebral body hemangioma noted. CT/CT abdomen pelvis wo IV con IMPRESSION: 1. Duplicated bilateral renal collecting system with mild dilation of the left lower pole moiety collecting system and left lower pole moiety ureter throughout its course, similar to prior. Mild urothelial thickening. Correlate clinically with any signs or symptoms of ascending urinary tract infection and with urinalysis. 2. The previously seen 2 mm left distal ureteral stone is no longer identified. 3. No ureteral calculi. 4. Unchanged punctate nonobstructing left upper pole renal calculus. 5. No other acute intra-abdominal process identified.
--- NOTE | ~2022-09-10 | US_ITS ---
EXAMINATION: US RETROPERITONEAL LIMITED (RENAL ONLY) CLINICAL INFORMATION: Left flank pain, assess for worsening hydronephrosis. COMPARISON: CT abdomen pelvis 09/07/2022 TECHNIQUE: Renal ultrasound was performed utilizing a curved array transducer. FINDINGS: RIGHT KIDNEY: 9.9 x 4.3 x 5.3 cm (SAG x AP x TRV). Duplicated collecting system. The kidney is normal in size, contour, and echogenicity. Renal cortical thickness is normal. No renal calculi or hydronephrosis. Small 0.9 cm anechoic simple cyst in the upper pole. LEFT KIDNEY: 11.9 x 6 x 5.8 cm (SAG x AP x TRV). Duplicated collecting system. The kidney is normal in size, contour, and echogenicity. Renal cortical thickness is normal. No calculi or focal parenchymal lesions. No hydronephrosis. US/US renal BI IMPRESSION: 1. No hydronephrosis. 2. Duplicated collecting systems bilaterally.
--- NOTE | 2022-09-10 13:06 | ED.ABDPAIN ---
HPI - Abdominal Pain General Chief Complaint: Urogenital-Female <APOLINAR Weaver - Last Filed: 09/10/22 13:10> Stated Complaint: Kidney stones <APOLINAR Weaver - Last Filed: 09/10/22 13:10> Time Seen by Provider: 09/10/22 17:00 <APOLINAR Weaver - Last Filed: 09/10/22 13:10> Source: patient <Pat Henley NP - Last Filed: 09/10/22 21:45> Mode of arrival: ambulatory <Pat Henley NP - Last Filed: 09/10/22 21:45> Limitations: no limitations <Pat Henley NP - Last Filed: 09/10/22 21:45> History of Present Illness HPI narrative: 57-year-old female presents with worsening left-sided flank pain, now accompanied by nausea and darkened urine. Patient was diagnosed with a kidney stone 3 days ago, had a CT scan that indicated hydronephrosis with kidney stone. Patient was treated with antibiotics and pain management ketorolac which she has been taking on a regular basis. Patient states that she cannot manage the pain at home, and has an overall feeling of unwellness. She states to have intermittent fevers and chills, and has had poor p.o. intake. <Pat Henley NP - Last Filed: 09/10/22 21:45> MD elicited complaint: abdominal pain and flank pain <Pat Henley NP - Last Filed: 09/10/22 21:45> Pertinent past history: kidney stones <Pat Henley NP - Last Filed: 09/10/22 21:45> Onset (ago): week(s) (1) <Pat Henley NP - Last Filed: 09/10/22 21:45> Pain Consistency: constant <Pat Henley NP - Last Filed: 09/10/22 21:45> Location: LUQ, LLQ, L flank, suprapubic and groin <BRENDA Trimble Last Filed: 09/10/22 21:45> Severity: severe <BRENDA Trimble Last Filed: 09/10/22 21:45> Pain scale (0-10): 9 <Pat Henley NP - Last Filed: 09/10/22 21:45> Quality: cramping and aching <Pat Henley NP - Last Filed: 09/10/22 21:45> Exacerbating factors: vomiting and movement <Pat Henley NP - Last Filed: 09/10/22 21:45> Relieving factors: nothing <Pat Henley NP - Last Filed: 09/10/22 21:45> Context: recent antibiotic use <Pat Henley NP - Last Filed: 09/10/22 21:45> Associated symptoms: nausea, vomiting, fever, chills and hematuria <Pat Henley NP - Last Filed: 09/10/22 21:45> Related Data Home Medications: Home Medications Medication Instructions Recorded Confirmed cetirizine 10 mg tablet 10 mg PO DAILY 11/30/20 09/10/22 diclofenac sodium 1 % topical gel 2 g topical QID PRN Pain 11/30/20 09/10/22 duloxetine 60 mg capsule,delayed 60 mg PO DAILY 11/30/20 09/10/22 release fluticasone propionate 50 2 spray intranasal DAILY 11/30/20 09/10/22 mcg/actuation nasal spray,suspension lidocaine 5 % topical patch 1 patch topical DAILY 11/30/20 09/10/22 (Lidoderm) melatonin 5 mg tablet 5 - 10 mg PO BEDTIME PRN insomnia 11/30/20 09/10/22 montelukast 10 mg tablet 10 mg PO BEDTIME 11/30/20 09/10/22 omeprazole 20 mg capsule,delayed 20 mg PO BID 11/30/20 09/10/22 release polyethylene glycol 3350 17 17 g PO DAILY 11/30/20 09/10/22 gram/dose oral powder atorvastatin 40 mg tablet 1 tab PO BEDTIME 11/04/21 09/10/22 amitriptyline 50 mg tablet 50 mg PO BEDTIME 03/13/22 09/10/22 buspirone 5 mg tablet 5 mg PO BID 03/13/22 09/10/22 docusate sodium 100 mg capsule 100 mg PO BID 03/13/22 09/10/22 (Colace) topiramate 50 mg tablet 50 mg PO BID 03/13/22 09/10/22 cholecalciferol (vitamin D3) 50 1 cap PO QAM 09/10/22 09/10/22 mcg (2,000 unit) capsule (Vitamin D3) furosemide 40 mg tablet 1 tab PO QAM 09/10/22 09/10/22 ipratropium bromide 17 2 puff inhalation QID PRN wheezing 09/10/22 09/10/22 mcg/actuation HFA aerosol inhaler (Atrovent HFA) Previous Rx's Medication Instructions Recorded albuterol sulfate 2.5 mg/3 mL 2.5 mg (3 mL) inhalation Q4-6H PRN 11/14/21 (0.083 %) solution for nebulization shortness of breath or wheezing #90 mL fluticasone furoate 200 1 ea inhalation DAILY #60 ea 04/03/22 mcg-vilanterol 25 mcg/dose inhalation powder (Breo Ellipta) umeclidinium 62.5 mcg/actuation 1 inh inhalation DAILY #30 ea 05/06/22 blister powder for inhalation (Incruse Ellipta) dupilumab 300 mg/2 mL subcutaneous 300 mg (2 mL) subcut Q2W #4 mL 07/22/22 pen injector (CircularixAffectv) gabapentin 300 mg capsule 300 mg PO BEDTIME #90 caps 08/09/22 cefdinir 300 mg capsule 300 mg PO BID 5 days #10 caps 09/07/22 ketorolac 10 mg tablet 10 mg PO Q6H PRN pain 5 days #20 09/07/22 tabs tamsulosin 0.4 mg capsule (Flomax) 0.4 mg PO BEDTIME #4 caps 09/07/22 <APOLINAR Weaver - Last Filed: 09/10/22 13:10> Allergies/Adverse Reactions: Allergies Allergy/AdvReac Type Severity Reaction Status Date / Time pollen extracts [POLLEN] Allergy Unknown RUNNY Verified 07/09/22 10:42 NOSE, ITCHY EYES seasonl allergies Allergy Unknown asthma Uncoded 06/20/22 11:01 attacks <APOLINAR Weaver - Last Filed: 09/10/22 13:10> Review of Systems Review of Systems Constitutional: Positive subjective Fever, positive Chills Cardiovascular: No Chest Pain, No SOB Respiratory: No Cough, No Sputum, No Wheezing Gastrointestinal: positive Nausea, positive Vomiting, No Diarrhea, positive abdominal pain Genitourinary: positive Dysuria, positive urinary frequency, positive Hematuria, positive Flank Pain, positive hesitancy Musculoskeletal: No joint pain, No Myalgias Skin: No Skin Lesions, No rash Neuro: No Weakness, No Numbness, No Headache <Pat Henley NP - Last Filed: 09/10/22 21:45> Yes all other systems are reviewed and are negative <Pat Henley NP - Last Filed: 09/10/22 21:45> [facility], [facility] Past Medical History Attestation statement: The following information was validated with the patient. <Pat Henley NP - Last Filed: 09/10/22 21:45> Source: old records reviewed <Pat Henley NP - Last Filed: 09/10/22 21:45> Medical History: Medical History Anxiety Arthritis Asthma COVID-19 Depression Migraine headache <APOLINAR Weaver - Last Filed: 09/10/22 13:10> Surgical History: Surgical History Hx of cholecystectomy Hx of elbow surgery Hx of hysterectomy <APOLINAR Weaver - Last Filed: 09/10/22 13:10> Social History Social History: Social History Household Members: Spouse Household Members Other:: - [place] Housing: House Do you presently have visiting nurse or other home services: No Alcohol intake: never Patient Tobacco Use Status: Never used Tobacco Second Hand Smoke Exposure: No Advance Directives: No Advance Directives Information Provided: Yes service: No Current occupational status: unemployed and disabled Current occupation: rt handed <PAOLINAR Weaver - Last Filed: 09/10/22 13:10> Physical Exam ED Vital Signs: Vital Signs - 24 hr 09/10/22 13:03 09/10/22 17:05 09/10/22 19:16 Temperature 98 F 98 F 97.3 F Pulse Rate 100 81 68 Respiratory Rate 19 18 18 Blood Pressure 145/84 H 126/66 117/72 Pulse Oximetry 100 97 100 Oxygen Delivery Method Room Air Room Air Room Air 09/10/22 19:18 Temperature Pulse Rate Respiratory Rate 16 Blood Pressure Pulse Oximetry Oxygen Delivery Method BMI result Body Mass Index 26.9 <APOLINAR Weaver - Last Filed: 09/10/22 13:10> Vital Signs - 24 hr 09/10/22 13:03 09/10/22 17:05 09/10/22 19:16 Temperature 98 F 98 F 97.3 F Pulse Rate 100 81 68 Respiratory Rate 19 18 18 Blood Pressure 145/84 H 126/66 117/72 Pulse Oximetry 100 97 100 Oxygen Delivery Method Room Air Room Air Room Air 09/10/22 19:18 Temperature Pulse Rate Respiratory Rate 16 Blood Pressure Pulse Oximetry Oxygen Delivery Method BMI result Body Mass Index 26.9 <Pat Henley NP - Last Filed: 09/10/22 21:45> Appearance: Alert. Oriented X3. Moderate distress. Eyes: Pupils equal, round and reactive to light. Sclera nonicteric. ENT: Pharynx normal. Moist mucous membranes. Neck: Normal inspection. Neck supple. CVS: Tachycardic heart rate and rhythm. Pulses normal. Respiratory: No respiratory distress. Breath sounds normal. Abdomen: Soft and left upper left lower quadrant abdominal pain to palpation, left-sided CVA tenderness. Positive suprapubic tenderness. No rigidity or rebound. Skin: Skin warm and dry. Normal skin color. Normal skin turgor. Extremities: No lower extremity edema. Gait balanced and coordinated. Neuro: No motor deficit. No sensory deficit. Cranial nerves 2-12 intact. <Pat Henley NP - Last Filed: 09/10/22 21:45> Course Course Course Narrative: RME - 57 yo female with history of recently diagnosed 2mm kidney stone with mild hydronephrosis who presents to the ER with worsening left sided flank pain along with N/V and brown urine. Seen here on 09/07, d/c home with PO abx, PO toradol & flomax. Unable to get in with Urology per patient. Pain worsening today with new vomiting and brown urine. Will get labs and renal U/S to reassess for worsening hydro. <APOLINAR Weaver - Last Filed: 09/10/22 13:10> RME - 57 yo female with history of recently diagnosed 2mm kidney stone with mild hydronephrosis who presents to the ER with worsening left sided flank pain along with N/V and brown urine. Seen here on 09/07, d/c home with PO abx, PO toradol & flomax. Unable to get in with Urology per patient. Pain worsening today with new vomiting and brown urine. Will get labs and renal U/S to reassess for worsening hydro. 57-year-old female presents for worsening left-sided flank and abdominal pain, now radiating to her left upper quadrant left lower quadrant and suprapubic. She has now intermittent subjective fevers and chills, nausea and vomiting. She has been on Ceftin twice a day since Friday, ketorolac for pain and Flomax. She feels like her urine is darker, and is unable to manage her pain. Labs are drawn while she was in the emergency department waiting room, CBC is normal, K is 3.2, gap 11, urinalysis positive for heme, leukocyte esterase, and white cells. Plan of care is for antibiotics, IV fluids, and pain management with morphine. 19:04 discussion with hospitalist, plan of care is to admit for pyelonephritis. Patient continues to have moderate pain, 6/10, 4 mg morphine given at this time. <Pat Henley NP - Last Filed: 09/10/22 21:45> Consultations Consultation #1: Anitha <Pat Henley NP - Last Filed: 09/10/22 21:45> Time: 19:05 <Pat eHnley NP - Last Filed: 09/10/22 21:45> Medical Decision Making Differential Diagnosis Differential Diagnoses: The differential diagnosis associated with the presentation includes <Pat Henley NP - Last Filed: 09/10/22 21:45> Hydronephrosis, pyelonephrosis, and a urinary tract infection <Pat Henley NP - Last Filed: 09/10/22 21:45> Admission/Observation Consideration of admission/observation: Escalation of care including admission/observation considered <Pat Henley NP - Last Filed: 09/10/22 21:45> Plan is for admission <Pat Henley NP - Last Filed: 09/10/22 21:45> Consult Healthcare Provider Management of the patient was discussed with: Hospitalist <Pat Henley NP - Last Filed: 09/10/22 21:45> Lab Data [facility] Lab Attestation statement: I reviewed the patient's lab results. <Pat Henley NP - Last Filed: 09/10/22 21:45> Result Diagrams: 09/10/22 13:13 09/10/22 13:13 <APOLINAR Weaver - Last Filed: 09/10/22 13:10> Labs: Lab Results 09/10/22 09/10/22 09/10/22 Range/Units 13:13 13:13 13:13 WBC 8.4 (4.8-10.8) X10*3/uL RBC 4.69 (4.20-5.50) X10*6/uL Hgb 13.5 (12.0-16.0) g/dl Hct 39.7 (37.0-47.0) % MCV 84.6 (80.0-98.0) fL MCH 28.8 (27.0-33.0) pg MCHC 34.0 (31.0-35.0) g/dl RDW 12.3 (11.0-16.0) % Plt Count 219 (160-400) X10*3/uL MPV 9.6 (9.4-12.3) fL Immature Gran % (Auto) 0.1 (0.0-0.4) % Neut % (Auto) 59.5 (45-73) % Lymph % (Auto) 32.1 (20-40) % Floyd % (Auto) 6.0 (2-11) % Eos % (Auto) 1.8 (0-4) % Baso % (Auto) 0.5 (0-2) % Lymph # (Auto) 2.7 (1.2-4.9) X10*3/uL Floyd # (Auto) 0.5 (0.1-1.2) X10*3/uL Eos # (Auto) 0.2 (0.0-0.4) X10*3/uL Baso # (Auto) 0.0 (0.0-0.2) X10*3/uL Abs Immat Gran (auto) 0.01 (0.00-0.03) X10*3/uL Absolute Neuts (auto) 5.0 (2.0-8.3) x10*3/uL Absolute Nucleated RBC 0.000 (0.0-0.012) X10*3/uL Nucleated RBC % (auto) 0.0 (0.0-0.2) /100WBC Sodium 140 (135-145) mmol/L Potassium 3.2 L (3.3-5.1) mmol/L Chloride 102 (96-108) mmol/L Carbon Dioxide 30 H (22-29) mmol/L Anion Gap 11 L (12-20) BUN 14 (9-16) mg/dL Creatinine 0.75 (0.5-1.4) mg/dL Estim Creat Clear Calc 75.8 Estimated GFR > 60 Random Glucose 102 (60-115) mg/dL Calcium 9.8 (8.4-10.2) mg/dL Magnesium 2.0 (1.6-2.6) mg/dL Total Bilirubin 0.6 (0.0-1.0) mg/dL Direct Bilirubin 0.2 (0.0-0.5) mg/dL AST 18 (5-31) U/L ALT 14 (0-31) U/L Alkaline Phosphatase 125 H (39-117) U/L Total Protein 7.6 (6.5-8.0) g/dL Albumin 4.5 (3.5-5.0) g/dL Urine Color Urine Appearance Urine pH (5.0-9.0) Ur Specific [place] (1.005-1.025) Urine Protein (Neg-Trace) mg/dL Urine Glucose (UA) (Negative) mg/dL Urine Ketones (Negative) mg/dL Urine Blood (Negative) Urine Nitrite (Negative) Ur Leukocyte Esterase (Negative) Urine RBC (0-2) /HPF Urine WBC (0-5) /HPF Ur Squamous Epith Cells (0-2) /HPF Urine Bacteria (None Seen) Hyaline Casts (0-2) /LPF COVID-19 (ALBINO) Negative (Negative) COVID-19 Clin Com See Note 09/10/22 Range/Units 13:13 WBC (4.8-10.8) X10*3/uL RBC (4.20-5.50) X10*6/uL Hgb (12.0-16.0) g/dl Hct (37.0-47.0) % MCV (80.0-98.0) fL MCH (27.0-33.0) pg MCHC (31.0-35.0) g/dl RDW (11.0-16.0) % Plt Count (160-400) X10*3/uL MPV (9.4-12.3) fL Immature Gran % (Auto) (0.0-0.4) % Neut % (Auto) (45-73) % Lymph % (Auto) (20-40) % Floyd % (Auto) (2-11) % Eos % (Auto) (0-4) % Baso % (Auto) (0-2) % Lymph # (Auto) (1.2-4.9) X10*3/uL Floyd # (Auto) (0.1-1.2) X10*3/uL Eos # (Auto) (0.0-0.4) X10*3/uL Baso # (Auto) (0.0-0.2) X10*3/uL Abs Immat Gran (auto) (0.00-0.03) X10*3/uL Absolute Neuts (auto) (2.0-8.3) x10*3/uL Absolute Nucleated RBC (0.0-0.012) X10*3/uL Nucleated RBC % (auto) (0.0-0.2) /100WBC Sodium (135-145) mmol/L Potassium (3.3-5.1) mmol/L Chloride (96-108) mmol/L Carbon Dioxide (22-29) mmol/L Anion Gap (12-20) BUN (9-16) mg/dL Creatinine (0.5-1.4) mg/dL Estim Creat Clear Calc Estimated GFR Random Glucose (60-115) mg/dL Calcium (8.4-10.2) mg/dL Magnesium (1.6-2.6) mg/dL Total Bilirubin (0.0-1.0) mg/dL Direct Bilirubin (0.0-0.5) mg/dL AST (5-31) U/L ALT (0-31) U/L Alkaline Phosphatase (39-117) U/L Total Protein (6.5-8.0) g/dL Albumin (3.5-5.0) g/dL Urine Color Yellow Urine Appearance Clear Urine pH 5.5 (5.0-9.0) Ur Specific [place] <= 1.005 (1.005-1.025) Urine Protein Negative (Neg-Trace) mg/dL Urine Glucose (UA) Negative (Negative) mg/dL Urine Ketones Negative (Negative) mg/dL Urine Blood Moderate (2+) H (Negative) Urine Nitrite Negative (Negative) Ur Leukocyte Esterase Small (1+) H (Negative) Urine RBC 3-5 H (0-2) /HPF Urine WBC 6-10 H (0-5) /HPF Ur Squamous Epith Cells 0-2 (0-2) /HPF Urine Bacteria None Seen (None Seen) Hyaline Casts 0-2 (0-2) /LPF COVID-19 (ALBINO) (Negative) COVID-19 Clin Com <APOLINAR Weaver - Last Filed: 09/10/22 13:10> Lab Results 09/10/22 09/10/22 09/10/22 Range/Units 13:13 13:13 13:13 WBC 8.4 (4.8-10.8) X10*3/uL RBC 4.69 (4.20-5.50) X10*6/uL Hgb 13.5 (12.0-16.0) g/dl Hct 39.7 (37.0-47.0) % MCV 84.6 (80.0-98.0) fL MCH 28.8 (27.0-33.0) pg MCHC 34.0 (31.0-35.0) g/dl RDW 12.3 (11.0-16.0) % Plt Count 219 (160-400) X10*3/uL MPV 9.6 (9.4-12.3) fL Immature Gran % (Auto) 0.1 (0.0-0.4) % Neut % (Auto) 59.5 (45-73) % Lymph % (Auto) 32.1 (20-40) % Floyd % (Auto) 6.0 (2-11) % Eos % (Auto) 1.8 (0-4) % Baso % (Auto) 0.5 (0-2) % Lymph # (Auto) 2.7 (1.2-4.9) X10*3/uL Floyd # (Auto) 0.5 (0.1-1.2) X10*3/uL Eos # (Auto) 0.2 (0.0-0.4) X10*3/uL Baso # (Auto) 0.0 (0.0-0.2) X10*3/uL Abs Immat Gran (auto) 0.01 (0.00-0.03) X10*3/uL Absolute Neuts (auto) 5.0 (2.0-8.3) x10*3/uL Absolute Nucleated RBC 0.000 (0.0-0.012) X10*3/uL Nucleated RBC % (auto) 0.0 (0.0-0.2) /100WBC Sodium 140 (135-145) mmol/L Potassium 3.2 L (3.3-5.1) mmol/L Chloride 102 (96-108) mmol/L Carbon Dioxide 30 H (22-29) mmol/L Anion Gap 11 L (12-20) BUN 14 (9-16) mg/dL Creatinine 0.75 (0.5-1.4) mg/dL Estim Creat Clear Calc 75.8 Estimated GFR > 60 Random Glucose 102 (60-115) mg/dL Calcium 9.8 (8.4-10.2) mg/dL Magnesium 2.0 (1.6-2.6) mg/dL Total Bilirubin 0.6 (0.0-1.0) mg/dL Direct Bilirubin 0.2 (0.0-0.5) mg/dL AST 18 (5-31) U/L ALT 14 (0-31) U/L Alkaline Phosphatase 125 H (39-117) U/L Total Protein 7.6 (6.5-8.0) g/dL Albumin 4.5 (3.5-5.0) g/dL Urine Color Urine Appearance Urine pH (5.0-9.0) Ur Specific [place] (1.005-1.025) Urine Protein (Neg-Trace) mg/dL Urine Glucose (UA) (Negative) mg/dL Urine Ketones (Negative) mg/dL Urine Blood (Negative) Urine Nitrite (Negative) Ur Leukocyte Esterase (Negative) Urine RBC (0-2) /HPF Urine WBC (0-5) /HPF Ur Squamous Epith Cells (0-2) /HPF Urine Bacteria (None Seen) Hyaline Casts (0-2) /LPF COVID-19 (ALBINO) Negative (Negative) COVID-19 Clin Com See Note 09/10/22 Range/Units 13:13 WBC (4.8-10.8) X10*3/uL RBC (4.20-5.50) X10*6/uL Hgb (12.0-16.0) g/dl Hct (37.0-47.0) % MCV (80.0-98.0) fL MCH (27.0-33.0) pg MCHC (31.0-35.0) g/dl RDW (11.0-16.0) % Plt Count (160-400) X10*3/uL MPV (9.4-12.3) fL Immature Gran % (Auto) (0.0-0.4) % Neut % (Auto) (45-73) % Lymph % (Auto) (20-40) % Floyd % (Auto) (2-11) % Eos % (Auto) (0-4) % Baso % (Auto) (0-2) % Lymph # (Auto) (1.2-4.9) X10*3/uL Floyd # (Auto) (0.1-1.2) X10*3/uL Eos # (Auto) (0.0-0.4) X10*3/uL Baso # (Auto) (0.0-0.2) X10*3/uL Abs Immat Gran (auto) (0.00-0.03) X10*3/uL Absolute Neuts (auto) (2.0-8.3) x10*3/uL Absolute Nucleated RBC (0.0-0.012) X10*3/uL Nucleated RBC % (auto) (0.0-0.2) /100WBC Sodium (135-145) mmol/L Potassium (3.3-5.1) mmol/L Chloride (96-108) mmol/L Carbon Dioxide (22-29) mmol/L Anion Gap (12-20) BUN (9-16) mg/dL Creatinine (0.5-1.4) mg/dL Estim Creat Clear Calc Estimated GFR Random Glucose (60-115) mg/dL Calcium (8.4-10.2) mg/dL Magnesium (1.6-2.6) mg/dL Total Bilirubin (0.0-1.0) mg/dL Direct Bilirubin (0.0-0.5) mg/dL AST (5-31) U/L ALT (0-31) U/L Alkaline Phosphatase (39-117) U/L Total Protein (6.5-8.0) g/dL Albumin (3.5-5.0) g/dL Urine Color Yellow Urine Appearance Clear Urine pH 5.5 (5.0-9.0) Ur Specific [place] <= 1.005 (1.005-1.025) Urine Protein Negative (Neg-Trace) mg/dL Urine Glucose (UA) Negative (Negative) mg/dL Urine Ketones Negative (Negative) mg/dL Urine Blood Moderate (2+) H (Negative) Urine Nitrite Negative (Negative) Ur Leukocyte Esterase Small (1+) H (Negative) Urine RBC 3-5 H (0-2) /HPF Urine WBC 6-10 H (0-5) /HPF Ur Squamous Epith Cells 0-2 (0-2) /HPF Urine Bacteria None Seen (None Seen) Hyaline Casts 0-2 (0-2) /LPF COVID-19 (ALBINO) (Negative) COVID-19 Clin Com <Pat Henley NP - Last Filed: 09/10/22 21:45> Independent Interpretation I performed an independent interpretation of an: Ultrasound <Pat Henley NP - Last Filed: 09/10/22 21:45> Radiology Impression Discussion of test interpretation with radiology: I have reviewed the radiologist's reading. <Pat Henley NP - Last Filed: 09/10/22 21:45> Radiologist Impression: COMPARISON: CT abdomen pelvis 09/07/2022 TECHNIQUE: Renal ultrasound was performed utilizing a curved array transducer. FINDINGS: RIGHT KIDNEY: 9.9 x 4.3 x 5.3 cm (SAG x AP x TRV). Duplicated collecting system. The kidney is normal in size, contour, and echogenicity. Renal cortical thickness is normal. No renal calculi or hydronephrosis. Small 0.9 cm anechoic simple cyst in the upper pole. LEFT KIDNEY: 11.9 x 6 x 5.8 cm (SAG x AP x TRV). Duplicated collecting system. The kidney is normal in size, contour, and echogenicity. Renal cortical thickness is normal. No calculi or focal parenchymal lesions. No hydronephrosis. US/US renal BI IMPRESSION: 1.? No hydronephrosis. 2.? Duplicated collecting systems bilaterally. ? <Pat Henley NP - Last Filed: 09/10/22 21:45> External Record Review External record reviewed: Outpatient record and Prior outpatient labs <Pat Henley NP - Last Filed: 09/10/22 21:45> Prescription Management I considered prescription management with: Pain Medication and Antibiotic <Pat Henley NP - Last Filed: 09/10/22 21:45> Medications Administered Generic Name Dose Route Start Last Admin Trade Name Freq PRN Reason Stop Dose Admin Atorvastatin Calcium 40 mg 09/10/22 21:00 09/10/22 21:05 Atorvastatin Calcium 40 Mg Tablet PO 40 mg BEDTIME JOAQUIM Administration Buspirone HCl 5 mg 09/10/22 21:00 09/10/22 21:05 Buspirone Hcl 5 Mg Tablet PO 5 mg BID JOAQUIM Administration Docusate Sodium 100 mg 09/10/22 21:00 09/10/22 21:05 Docusate Sodium 100 Mg Capsule PO 100 mg BID JOAQUIM Administration Enoxaparin Sodium 40 mg 09/10/22 20:00 09/10/22 21:06 Enoxaparin Sodium 40 Mg/0.4 Ml Syringe SUBCUT 40 mg Q24H JOAQUIM Administration Gabapentin 300 mg 09/10/22 21:00 09/10/22 21:05 Gabapentin 300 Mg Capsule PO 300 mg BEDTIME JOAQUIM Administration Montelukast Sodium 10 mg 09/10/22 21:00 09/10/22 21:05 Montelukast Sodium 10 Mg Tablet PO 10 mg BEDTIME JOAQUIM Administration Tamsulosin HCl 0.4 mg 09/10/22 21:00 09/10/22 21:05 Tamsulosin Hcl 0.4 Mg Capsule PO 0.4 mg BEDTIME JOAQUIM Administration Topiramate 50 mg 09/10/22 21:00 09/10/22 21:05 Topiramate 25 Mg Tablet PO 50 mg BID JOAQUIM Administration Discontinued Medications Generic Name Dose Route Start Last Admin Trade Name Freq PRN Reason Stop Dose Admin Sodium Chloride 1,000 mls @ 999 mls/hr 09/10/22 13:15 09/10/22 18:38 Ns IVCONT 09/10/22 14:15 Infused .Q1H1M JOAQUIM Infusion Ceftriaxone Sodium 1 gm/ 50 mls @ 100 mls/hr 09/10/22 17:07 09/10/22 18:38 Sodium Chloride IV 09/10/22 17:36 Infused ONCE ONE Infusion Morphine Sulfate 2 mg 09/10/22 17:07 09/10/22 17:17 Morphine Sulfate 2 Mg/Ml Cartridge IVPUSH 09/10/22 17:08 2 mg ONCE ONE Administration Protocol Morphine Sulfate 4 mg 09/10/22 19:02 09/10/22 19:18 Morphine Sulfate 4 Mg/Ml Cartridge IVPUSH 09/10/22 19:03 4 mg ONCE ONE Administration Protocol Ondansetron HCl 4 mg 09/10/22 17:07 09/10/22 17:17 Ondansetron Hcl 4 Mg/2 Ml Vial IVPUSH 09/10/22 17:08 4 mg ONCE ONE Administration <APOLINAR Weaver - Last Filed: 09/10/22 13:10> Medications Administered Generic Name Dose Route Start Last Admin Trade Name Freq PRN Reason Stop Dose Admin Atorvastatin Calcium 40 mg 09/10/22 21:00 09/10/22 21:05 Atorvastatin Calcium 40 Mg Tablet PO 40 mg BEDTIME JOAQUIM Administration Buspirone HCl 5 mg 09/10/22 21:00 09/10/22 21:05 Buspirone Hcl 5 Mg Tablet PO 5 mg BID JOAQUIM Administration Docusate Sodium 100 mg 09/10/22 21:00 09/10/22 21:05 Docusate Sodium 100 Mg Capsule PO 100 mg BID JOAQUIM Administration Enoxaparin Sodium 40 mg 09/10/22 20:00 09/10/22 21:06 Enoxaparin Sodium 40 Mg/0.4 Ml Syringe SUBCUT 40 mg Q24H JOAQUIM Administration Gabapentin 300 mg 09/10/22 21:00 09/10/22 21:05 Gabapentin 300 Mg Capsule PO 300 mg BEDTIME JOAQUIM Administration Montelukast Sodium 10 mg 09/10/22 21:00 09/10/22 21:05 Montelukast Sodium 10 Mg Tablet PO 10 mg BEDTIME JOAQUIM Administration Tamsulosin HCl 0.4 mg 09/10/22 21:00 09/10/22 21:05 Tamsulosin Hcl 0.4 Mg Capsule PO 0.4 mg BEDTIME JOAQUIM Administration Topiramate 50 mg 09/10/22 21:00 09/10/22 21:05 Topiramate 25 Mg Tablet PO 50 mg BID JOAQUIM Administration Discontinued Medications Generic Name Dose Route Start Last Admin Trade Name Franky PRN Reason Stop Dose Admin Sodium Chloride 1,000 mls @ 999 mls/hr 09/10/22 13:15 09/10/22 18:38 Ns IVCONT 09/10/22 14:15 Infused .Q1H1M JOAQUIM Infusion Ceftriaxone Sodium 1 gm/ 50 mls @ 100 mls/hr 09/10/22 17:07 09/10/22 18:38 Sodium Chloride IV 09/10/22 17:36 Infused ONCE ONE Infusion Morphine Sulfate 2 mg 09/10/22 17:07 09/10/22 17:17 Morphine Sulfate 2 Mg/Ml Cartridge IVPUSH 09/10/22 17:08 2 mg ONCE ONE Administration Protocol Morphine Sulfate 4 mg 09/10/22 19:02 09/10/22 19:18 Morphine Sulfate 4 Mg/Ml Cartridge IVPUSH 09/10/22 19:03 4 mg ONCE ONE Administration Protocol Ondansetron HCl 4 mg 09/10/22 17:07 09/10/22 17:17 Ondansetron Hcl 4 Mg/2 Ml Vial IVPUSH 09/10/22 17:08 4 mg ONCE ONE Administration <Pat Henley NP - Last Filed: 09/10/22 21:45> Discharge Plan Discharge Clinical Impression: Pyelonephritis <APOLINAR Weaver - Last Filed: 09/10/22 13:10> Patient Disposition: Admitted As Inpatient <APOLINAR Weaver - Last Filed: 09/10/22 13:10>
[2022-09-10 13:20] LABS: MANUAL DIFF FLAG NO
[2022-09-10 13:24] LABS: Appearance Urine Clear; Basophils Percent Auto 0.5 % (0-2); Color Urine Yellow; Eosinophils Absolute Auto 0.2 X10*3/uL (0.0-0.4); Eosinophils Percent Auto 1.8 % (0-4); Glucose Urine UA Negative (Negative); Hematocrit 39.7 % (37.0-47.0); Hemoglobin 13.5 g/dl (12.0-16.0); Imm Gran Abs Auto 0.01 X10*3/uL (0.00-0.03); Imm Gran Pct Auto 0.1 % (0.0-0.4); Leukocyte Esterase Urine Small (1+) (Negative); Lymphocytes Absolute Auto 2.7 X10*3/uL (1.2-4.9); Lymphocytes Percent Auto 32.1 % (20-40); Mean Corpuscular Hemoglobin 28.8 pg (27.0-33.0); Mean Corpuscular Volume 84.6 fL (80.0-98.0); Mean Platelet Volume 9.6 fL (9.4-12.3); Monocytes Absolute Auto 0.5 X10*3/uL (0.1-1.2); Neutrophils Percent Auto 59.5 % (45-73); Nitrite Urine Negative (Negative); PH 5.5 (5.0-9.0); Platelet Count 219 X10*3/uL (160-400); Red Blood Count 4.69 X10*6/uL (4.20-5.50); Red Cell Distribution Width 12.3 % (11.0-16.0); Specific Gravity - Urine <= 1.005 (1.005-1.025); UMIC TRIGGER UACC YES; Urine Blood Moderate (2+) (Negative); Urine Ketones Negative (Negative); Urine Protein Negative (Neg-Trace); White Blood Count 8.4 X10*3/uL (4.8-10.8)
[2022-09-10 13:36] LABS: Bacteria Urine None Seen (None Seen); Hyaline Casts Urine 0-2 /LPF (0-2); Squamous Epithelial Cell Urine 0-2 /HPF (0-2); UACC Culture Trigger YES
[2022-09-10 13:39] LABS: COVID-19 Test Negative (Negative); IDNOW Serial# 55D5AD1C
[2022-09-10 13:50] LABS: Alanine Aminotransferase 14 U/L (0-31); Albumin Level 4.5 g/dL (3.5-5.0); Alkaline Phosphatase 125 U/L (39-117); Anion Gap 11 (12-20); Aspartate Amino Transferase 18 U/L (5-31); Bilirubin Direct 0.2 mg/dL (0.0-0.5); Bilirubin Total 0.6 mg/dL (0.0-1.0); Blood Urea Nitrogen 14 mg/dL (9-16); Calcium 9.8 mg/dL (8.4-10.2); Carbon Dioxide 30 mmol/L (22-29); Chloride 102 mmol/L (96-108); Creatinine Clr Calc Pharmacy 75.8; Estimated Glomerular Filt Rate > 60; Glucose Random 102 mg/dL (60-115); Potassium 3.2 mmol/L (3.3-5.1); Sodium 140 mmol/L (135-145); Total Protein 7.6 g/dL (6.5-8.0)
[2022-09-10] MEDS: 0.9 % Sodium Chloride 1,000 ML 999 ML IVCONT (17:03)
[2022-09-10] MEDS: ondansetron HCL 4 MG/2 ML VIAL IVPUSH (17:17)
[2022-09-10] MEDS: Morphine Sulfate 2 MG/ML CARTRIDGE IVPUSH (17:17)
[2022-09-10] MEDS: cefTRIAXone sodium 1 GM in 0.9 % Sodium Chloride 50 ML IV (17:18)
--- NOTE | 2022-09-10 17:24 | PC.NURSE ---
pt a&ox3, vss, 22G IV placed in right forearm, medicated for 8/10 pain, NS running. no new orders at this time.
[2022-09-10] MEDS: Morphine Sulfate 4 MG/ML CARTRIDGE IVPUSH (19:18)
--- NOTE | 2022-09-10 19:30 | PC.NURSE ---
Patient is aklert and oriented. Complains of pain 9/10. Pain medication was given, vitals are stable. Safety maintained
--- NOTE | 2022-09-10 20:02 | PHA.MEDREC ---
Pharmacy Consult ? Medication Reconciliation Pharmacy has completed the medication reconciliation. Patient use [facility] at [facility]. Patient recognize some but not all medications in [facility]box. Patient was able to confirm all medications outside of [facility]. Patient reported her inhalers. Marissa Rivers, PharmD
--- NOTE | 2022-09-10 20:17 | P.HPHOSP_ITS ---
History of Present Illness Date of Service: 09/10/22 Attending physician on admission: Filipe Welsh Chief Complaint: llq pain, left flank pain 57-year-old female with history of anxiety, osteoarthritis, moderate persistent asthma, depression, and migraine headaches presents to the ED for evaluation of left flank and left lower quadrant pain ongoing for 4 days. She was seen in the ED 3 days ago and was diagnosed with nonobstructing 2 mm nephrolithiasis mild hydronephrosis noted on CT of the abdomen/pelvis and was discharged with Ceftin and ketorolac for UTI and nephrolithiasis. He states that the left flank pain has gotten worse and is now radiating into the left lower quadrant. There is no associated nausea, vomiting, limited urine output, and dark urine. She denies any fevers, chills, dysuria, lukasz hematuria, increased urinary frequency. She does not feel that she has passed any stones. She has also noted anorexia with decreased p.o. intake. In the ED, patient afebrile, vitals stable. No leukocytosis. Renal function baseline. Electrolytes normal except for mild hypokalemia 3.2. UA significant for 1+ leukocytes, 2+ blood, urinary sediment, no bacteria seen. There is no urine culture collected at previous ED visit. Urine culture and blood cultures pending from today. She was treated empirically with 1 g ceftriaxone and IV fluids. Review of Systems Review of Systems: General: No fevers, malaise, unintentional weight loss Cardiovascular: No chest pain, palpitations, or leg edema Respiratory: No shortness of breath, wheezing, cough GI: +LLQ pain, +nausea, +vomiting, +anorexia. No diarrhea, constipation, melena, hematochezia : +dysuria, +hematuria, +decreased urinary output. No increased urinary frequency MSK: +left flank pain. No myalgia Neuro: No headaches, weakness, paresthesias Skin: No rashes or lesions [facility] Medical History Anxiety Arthritis Asthma COVID-19 Depression Migraine headache Surgical History Hx of cholecystectomy Hx of elbow surgery Hx of hysterectomy Social History Household Members: Spouse Household Members Other:: - [place] Housing: House Do you presently have visiting nurse or other home services: No Alcohol intake: never Patient Tobacco Use Status: Never used Tobacco Smoked in Last 30 Days: No Second Hand Smoke Exposure: No Use of substances other than those prescribed or required for medical reasons: No Advance Directives: No Advance Directives Information Provided: Yes Patient : No service: No Current occupational status: unemployed and disabled Current occupation: rt handed Meds Allergies Allergy/AdvReac Type Severity Reaction Status Date / Time pollen extracts [POLLEN] Allergy Unknown RUNNY Verified 07/09/22 10:42 NOSE, ITCHY EYES seasonl allergies Allergy Unknown asthma Uncoded 06/20/22 11:01 attacks Active Medications: Current Medications Acetaminophen (Acetaminophen 325 Mg Tablet) 650 mg PO Q6H PRN PRN Reason: Pain, Mild (Pain Scale 1-3) Albuterol Sulfate (Albuterol Sulfate (0.083%) 2.5 Mg/3 Ml Vial.Neb) 2.5 mg INHALE Q4H PRN PRN Reason: shortness of breath or wheezing Amitriptyline HCl (Amitriptyline Hcl 50 Mg Tablet) 50 mg PO BEDTIME JOAQUIM Atorvastatin Calcium (Atorvastatin Calcium 40 Mg Tablet) 40 mg PO BEDTIME JOAQUIM Buspirone HCl (Buspirone Hcl 5 Mg Tablet) 5 mg PO BID JOAQUIM Docusate Sodium (Docusate Sodium 100 Mg Capsule) 100 mg PO BID JOAQUIM Duloxetine HCl (Duloxetine Hcl 60 Mg Capsule.Dr) 60 mg PO DAILY REPLACED BY [facility] Enoxaparin Sodium (Enoxaparin Sodium 40 Mg/0.4 Ml Syringe) 40 mg SUBCUT Q24H REPLACED BY [facility] Fluticasone Propionate (Fluticasone Propionate Nasal 16 Gm [place]) 2 spray NOSTRIL-B DAILY REPLACED BY [facility] Fluticasone/Vilanterol (Fluticasone/Vilanterol 200/25 Blst.W.Dev) 1 puff INHALE RDAILY REPLACED BY [facility] Furosemide (Furosemide 40 Mg Tablet) 40 mg PO DAILY JOAQUIM; Protocol Gabapentin (Gabapentin 300 Mg Capsule) 300 mg PO BEDTIME JOAQUIM Hydromorphone HCl (Hydromorphone Hcl 1 Mg/Ml Syringe) 0.25 mg IVPUSH Q4H PRN; Protocol PRN Reason: Pain, Severe (Pain Scale 7-10) Ipratropium Danube (Ipratropium Danube 1 Puff/17 Mcg Inhaler) 2 puff INHALE QID PRN PRN Reason: wheezing Ketorolac Tromethamine (Ketorolac Tromethamine 30 Mg/Ml Vial) 15 mg IVPUSH Q6H PRN PRN Reason: Pain, Moderate (Pain Scale 4-6 Stop: 09/15/22 19:58 Lidocaine (Lidocaine 4 % Patch Adh..Patch) 1 patch TRANSDERMA DAILY REPLACED BY [facility] Loratadine (Loratadine 10 Mg Tablet) 10 mg PO DAILY REPLACED BY [facility] Melatonin (Melatonin 3 Mg Tablet) 6 mg PO BEDTIME PRN PRN Reason: insomnia Montelukast Sodium (Montelukast Sodium 10 Mg Tablet) 10 mg PO BEDTIME REPLACED BY [facility] Non-Formulary Medication (Umeclidinium [Incruse Ellipta]) 1 inhalation INHALE DAILY REPLACED BY [facility] Omeprazole (Omeprazole 20 Mg Capsule.Dr) 20 mg PO BID@0630,1630 REPLACED BY [facility] Ondansetron HCl (Ondansetron Hcl 4 Mg/2 Ml Vial) 4 mg IVPUSH Q8H PRN PRN Reason: Nausea and Vomiting Polyethylene Glycol (Polyethylene Glycol 3350 17 Gm Powd.Pack) 17 gm PO DAILY REPLACED BY [facility] Sodium Chloride (0.9 % Sodium Chloride Flush 3 Ml Syringe) 3 ml IVFLUSH QSHIFT REPLACED BY [facility] Tamsulosin HCl (Tamsulosin Hcl 0.4 Mg Capsule) 0.4 mg PO BEDTIME JOAQUIM Topiramate (Topiramate 25 Mg Tablet) 50 mg PO BID REPLACED BY [facility] Vitamin D (Cholecalciferol (Vitamin D3) 25 Mcg Tablet) 50 mcg PO DAILY REPLACED BY [facility] Home Medications Medication Instructions Recorded Confirmed Last Taken Type cetirizine 10 mg tablet 10 mg PO DAILY 11/30/20 09/10/22 09/10/22 History diclofenac sodium 1 % topical gel 2 g topical QID PRN Pain 11/30/20 09/10/22 0 11/04/21 History duloxetine 60 mg capsule,delayed 60 mg PO DAILY 11/30/20 09/10/22 09/10/22 History release fluticasone propionate 50 2 spray intranasal DAILY 11/30/20 09/10/22 09/10/22 History mcg/actuation nasal spray,suspension lidocaine 5 % topical patch 1 patch topical DAILY 11/30/20 09/10/22 09/10/22 History (Lidoderm) melatonin 5 mg tablet 5 - 10 mg PO BEDTIME PRN insomnia 11/30/20 09/10/22 11/03/21 History montelukast 10 mg tablet 10 mg PO BEDTIME 11/30/20 09/10/22 09/09/22 History omeprazole 20 mg capsule,delayed 20 mg PO BID 11/30/20 09/10/22 09/10/22 History release polyethylene glycol 3350 17 17 g PO DAILY 11/30/20 09/10/22 09/10/22 History gram/dose oral powder atorvastatin 40 mg tablet 1 tab PO BEDTIME 11/04/21 09/10/22 09/09/22 History amitriptyline 50 mg tablet 50 mg PO BEDTIME 03/13/22 09/10/22 09/09/22 History buspirone 5 mg tablet 5 mg PO BID 03/13/22 09/10/22 09/10/22 History docusate sodium 100 mg capsule 100 mg PO BID 03/13/22 09/10/22 09/10/22 History (Colace) topiramate 50 mg tablet 50 mg PO BID 03/13/22 09/10/22 09/10/22 History cholecalciferol (vitamin D3) 50 1 cap PO QAM 09/10/22 09/10/22 09/10/22 History mcg (2,000 unit) capsule (Vitamin D3) furosemide 40 mg tablet 1 tab PO QAM 09/10/22 09/10/22 09/10/22 History ipratropium bromide 17 2 puff inhalation QID PRN wheezing 09/10/22 09/10/22 Unknown History mcg/actuation HFA aerosol inhaler (Atrovent HFA) Physical Exam Vital Signs and Narrative: Vital Signs: Last Vital Signs Temp 97.3 F 09/10/22 19:16 Pulse 68 09/10/22 19:16 Resp 16 09/10/22 19:18 BP 117/72 09/10/22 19:16 Pulse Ox 100 09/10/22 19:16 O2 Del Method 09/10/22 19:16 BMI result Body Mass Index 26.9 Constitutional - Awake and Alert, No apparent distress Eyes - PERRLA, EOMI Cardiovascular - S1S2, RRR, No edema Respiratory - Normal lung expansion, Normal respiratory effort, No respiratory distress, CTA bilaterally Gastrointestinal - LLQ pain, without guarding or rebound. ND; +BS - mild left sided CVA tenderness Musculoskeletal - Normal inspection, normal ROM Skin - Warm/Dry Neurological - Alert & oriented x3, CN II-XII in tact, 5/5 strength BUE and BLE Psychological - Appropriate affect Results Labs 09/10/22 13:13 09/10/22 13:13 Labs: Laboratory Results - last 24 hr 09/10/22 09/10/22 09/10/22 13:13 13:13 13:13 MCV 84.6 MCH 28.8 MCHC 34.0 RDW 12.3 Plt Count 219 MPV 9.6 Immature Gran % (Auto) 0.1 Neut % (Auto) 59.5 Lymph % (Auto) 32.1 Gibson % (Auto) 6.0 Eos % (Auto) 1.8 Baso % (Auto) 0.5 Lymph # (Auto) 2.7 Gibson # (Auto) 0.5 Eos # (Auto) 0.2 Baso # (Auto) 0.0 Abs Immat Gran (auto) 0.01 Absolute Neuts (auto) 5.0 Absolute Nucleated RBC 0.000 Nucleated RBC % (auto) 0.0 Anion Gap 11 L Estim Creat Clear Calc 75.8 Estimated GFR > 60 Random Glucose 102 Calcium 9.8 Magnesium 2.0 Total Bilirubin 0.6 Direct Bilirubin 0.2 AST 18 ALT 14 Alkaline Phosphatase 125 H Total Protein 7.6 Albumin 4.5 Urine Color Urine Appearance Urine pH Ur Specific [place]ard Urine Protein Urine Glucose (UA) Urine Ketones Urine Blood Urine Nitrite Ur Leukocyte Esterase Urine RBC Urine WBC Ur Squamous Epith Cells Urine Bacteria Hyaline Casts COVID-19 ([facility]) Negative COVID-19 Clin Com See Note 09/10/22 13:13 MCV MCH MCHC RDW Plt Count MPV Immature Gran % (Auto) Neut % (Auto) Lymph % (Auto) Gibson % (Auto) Eos % (Auto) Baso % (Auto) Lymph # (Auto) Gibson # (Auto) Eos # (Auto) Baso # (Auto) Abs Immat Gran (auto) Absolute Neuts (auto) Absolute Nucleated RBC Nucleated RBC % (auto) Anion Gap Estim Creat Clear Calc Estimated GFR Random Glucose Calcium Magnesium Total Bilirubin Direct Bilirubin AST ALT Alkaline Phosphatase Total Protein Albumin Urine Color Yellow Urine Appearance Clear Urine pH 5.5 Ur Specific Willard <= 1.005 Urine Protein Negative Urine Glucose (UA) Negative Urine Ketones Negative Urine Blood Moderate (2+) H Urine Nitrite Negative Ur Leukocyte Esterase Small (1+) H Urine RBC 3-5 H Urine WBC 6-10 H Ur Squamous Epith Cells 0-2 Urine Bacteria None Seen Hyaline Casts 0-2 COVID-19 ([facility]) COVID-19 Clin Com Imaging Radiologist's Impressions: Impressions Renal Ultrasound 09/10/22 15:58 IMPRESSION: 1. No hydronephrosis. 2. Duplicated collecting systems bilaterally. Assessment and Plan (1) UTI (urinary tract infection): Status: Acute (2) Nephrolithiasis: Status: Acute Plan 57-year-old female with history of anxiety, osteoarthritis, moderate persistent asthma, depression, and migraine headaches admitted for UTI and nephrolithiasis. #Acute UTI -UA with 1+ leukocytes, 2+ blood, negative nitrates, urinary sediment, negative bacteria -failed outpatient treatment with Ceftin -continue IV ceftriaxone -urine culture and blood cultures pending -no leukocytosis, hemodynamically stable. No sepsis -low suspicion for pyelonephritis at this time but does have mild left-sided CVA tenderness. Await results of CT abdomen/pelvis # nephrolithiasis -CT of abdomen/pelvis pending to evaluate for any obstructive uropathy -Flomax at bedtime -ondansetron p.r.n. nausea/vomiting -Pain management with pain scale -Consider urology consult # moderate persistent asthma-without acute exacerbation -continue home inhalers. Hold Dupixent -albuterol p.r.n. # anxiety/depression -continue home meds # osteoarthritis of multiple joints -lidocaine patch p.r.n., gabapentin # HLD -continue statin DVT prophylaxis-Lovenox Full code Patient requires inpatient stay of at least 2 midnights for management of acute UTI with possible obstructive uropathy having failed outpatient treatment with p.o. antibiotics now requiring IV antibiotics Time Spent With Patient Time: Total time managing care of this patient today ____ minutes. Quality Stroke Does the patient have a stroke diagnosis?: No VTE Prior VTE?: No VTE Risk Level:: Medical - moderate - high VTE Device Contraindication: Treatment Not Indicated VTE Drug Contraindication: N/A - Med Ordered
[2022-09-10] MEDS: Docusate Sodium 100 MG CAPSULE PO (21:05)
[2022-09-10] MEDS: Gabapentin 300 MG CAPSULE PO (21:05)
[2022-09-10] MEDS: Atorvastatin Calcium 40 MG TABLET PO (21:05)
[2022-09-10] MEDS: Tamsulosin HCL 0.4 MG CAPSULE PO (21:05)
[2022-09-10] MEDS: Montelukast Sodium 10 MG TABLET PO (21:05)
[2022-09-10] MEDS: busPIRone HCl 5 MG TABLET PO (21:05)
[2022-09-10] MEDS: Topiramate 25 MG TABLET 50 MG PO (21:05)
[2022-09-10] MEDS: Enoxaparin Sodium 40 MG/0.4 ML SYRINGE SUBCUT (21:06)
--- NOTE | 2022-09-10 21:45 | PC.NURSE ---
pharmacy contacted for amitriptyline.
[2022-09-10] MEDS: Lactated Ringers 1,000 ML 125 ML IVCONT (21:48)
[2022-09-10] MEDS: Amitriptyline HCl 50 MG TABLET PO (21:56)
--- NOTE | 2022-09-10 22:06 | MHC.CM.PN ---
CM met with admitted patient with bed assignment pending. Pt speaks [place] and denied need for surgeon chief. Lives with . Uses a walker. Daughter is her FILLING OPERATOR/Abhinav. [employer] x4. HCP reviewed, completed and signed. Copies given. U[place] into [facility] and [facility]. HCP/daughter Desire Hough ([phone]). PCP [facility]. D/C plan: Home without services. Family to transport. CM to follow for d/c needs.
--- NOTE | 2022-09-10 22:33 | PC.NURSE ---
Patient is alert and oriented x4. Vitals are WNL. Skin moist and pink. Patient does not experience signs of resp distress. Safety maintained.
[2022-09-10] MEDS: HYDROmorphone HCl 1 MG/ML SYRINGE 0.25 MG IVPUSH (23:25)
[2022-09-11 00:37] VITALS: RESP 16
[2022-09-11] MEDS: HYDROmorphone HCl 1 MG/ML SYRINGE IVPUSH (00:37)
[2022-09-11 01:04] VITALS: BP 101/57; PULSE 70; RESP 18; TEMP 36.6; O2SAT 97
--- NOTE | 2022-09-11 01:06 | PC.NURSE ---
Patient is alert and oriented. Stated that pain level is 4/10. Appears to be comfortable. Vitals are WNL. Patient does not experience signs of resp distress. Safety maintained
--- NOTE | 2022-09-11 03:24 | PC.NURSE ---
Assumed care of this patient a this time.
[2022-09-11] MEDS: Lactated Ringers 1,000 ML 125 ML IVCONT (05:26)
--- NOTE | 2022-09-11 05:32 | MHC.EDTECH ---
pt ambulated to the restroom without no problems, she stated she had some pain i let the nurse know
[2022-09-11] MEDS: Ketorolac Tromethamine 30 MG/ML VIAL 15 MG IVPUSH (05:38)
[2022-09-11] MEDS: Omeprazole 20 MG CAPSULE.DR PO ×2 (05:38→16:47)
[2022-09-11 05:47] LABS: MANUAL DIFF FLAG NO
[2022-09-11 05:52] LABS: Basophils Percent Auto 0.6 % (0-2); Eosinophils Absolute Auto 0.1 X10*3/uL (0.0-0.4); Eosinophils Percent Auto 2.2 % (0-4); Hematocrit 35.9 % (37.0-47.0); Hemoglobin 11.7 g/dl (12.0-16.0); Imm Gran Abs Auto 0.02 X10*3/uL (0.00-0.03); Imm Gran Pct Auto 0.3 % (0.0-0.4); Lymphocytes Absolute Auto 2.3 X10*3/uL (1.2-4.9); Lymphocytes Percent Auto 36.6 % (20-40); Mean Corpuscular HGB Conc 32.6 g/dl (31.0-35.0); Mean Corpuscular Hemoglobin 28.6 pg (27.0-33.0); Mean Corpuscular Volume 87.8 fL (80.0-98.0); Monocytes Absolute Auto 0.4 X10*3/uL (0.1-1.2); Monocytes Percent Auto 6.1 % (2-11); Neutrophils Absolute Auto 3.5 x10*3/uL (2.0-8.3); Neutrophils Percent Auto 54.2 % (45-73); Platelet Count 184 X10*3/uL (160-400); Red Blood Count 4.09 X10*6/uL (4.20-5.50); Red Cell Distribution Width 12.3 % (11.0-16.0); White Blood Count 6.4 X10*3/uL (4.8-10.8)
--- NOTE | 2022-09-11 05:52 | PC.NURSE ---
pt ambulated to restroom safely/independently
--- NOTE | 2022-09-11 06:04 | PC.NURSE ---
Pt ambulated to restroom, urine not collected; therefore unable to determine how much an output
[2022-09-11 07:04] LABS: Anion Gap 11 (12-20); Blood Urea Nitrogen 12 mg/dL (9-16); Calcium 9.1 mg/dL (8.4-10.2); Carbon Dioxide 28 mmol/L (22-29); Chloride 105 mmol/L (96-108); Creatinine Clr Calc Pharmacy 84.9; Estimated Glomerular Filt Rate > 60; Glucose Random 95 mg/dL (60-115); Potassium 3.8 mmol/L (3.3-5.1); Sodium 140 mmol/L (135-145)
[2022-09-11 07:23] VITALS: BP 97/63; PULSE 69; RESP 20; TEMP 36.4; O2SAT 97
[2022-09-11] MEDS: Lidocaine 4 % Patch ADH..PATCH 1 PATCH TRANSDERMA (09:02)
[2022-09-11] MEDS: DULoxetine HCl 60 MG CAPSULE.DR PO (09:03)
[2022-09-11] MEDS: Furosemide 40 MG TABLET PO (09:03)
[2022-09-11] MEDS: Loratadine 10 MG TABLET PO (09:03)
[2022-09-11] MEDS: Topiramate 25 MG TABLET 50 MG PO ×2 (09:03→20:06)
[2022-09-11] MEDS: Cholecalciferol (Vitamin D3) 25 MCG TABLET 50 MCG PO (09:03)
[2022-09-11] MEDS: busPIRone HCl 5 MG TABLET PO ×2 (09:03→20:06)
[2022-09-11 10:34] VITALS: BP 92/54; PULSE 62; RESP 20; TEMP 36.5; O2SAT 96
[2022-09-11 10:45] VITALS: BMI 26.9
[2022-09-11] MEDS: ondansetron HCL 4 MG/2 ML VIAL IVPUSH (12:28)
--- NOTE | 2022-09-11 14:10 | P.PNIM_ITS ---
Subjective Subjective Date of Service: 09/11/22 Interval History: uti,nephrolithasis Review of Systems still has flank left and back pain Feel nauseous, no fever or chills Denies any chest pain or shortness of breath. Physical Exam Vital Signs: Vital Signs: Last Vital Signs Temp 97.7 F 09/11/22 10:34 Pulse 62 09/11/22 10:34 Resp 20 09/11/22 10:34 BP 92/54 L 09/11/22 10:34 Pulse Ox 96 09/11/22 10:34 O2 Del Method 09/11/22 10:34 BMI result Body Mass Index 26.9 Appearance: Alert.? Oriented X3.? not in distress.? cvs: rrr, [id number] . res: clear to auscultation ,no rhonchii or wheezing abd: no rebound or guarding ,nt, bs present. ext pulses present , no cyanosis . neuro: axo3 , nonfocal. Objective Data Active Medications Acetaminophen (Acetaminophen 325 Mg Tablet) 650 mg PO Q6H PRN PRN Reason: Pain, Mild (Pain Scale 1-3) Albuterol Sulfate (Albuterol Sulfate (0.083%) 2.5 Mg/3 Ml Vial.Neb) 2.5 mg INHALE Q4H PRN PRN Reason: shortness of breath or wheezing Amitriptyline HCl (Amitriptyline Hcl 50 Mg Tablet) 50 mg PO BEDTIME [facility] Last Admin: 09/10/22 21:56 Dose: 50 mg Documented By: JINA Atorvastatin Calcium (Atorvastatin Calcium 40 Mg Tablet) 40 mg PO BEDTIME [facility] Last Admin: 09/10/22 21:05 Dose: 40 mg Documented By: JINA Buspirone HCl (Buspirone Hcl 5 Mg Tablet) 5 mg PO BID [facility] Last Admin: 09/11/22 09:03 Dose: 5 mg Documented By: SOL Docusate Sodium (Docusate Sodium 100 Mg Capsule) 100 mg PO BID [facility] Last Admin: 09/11/22 09:03 Dose: Not Given Documented By: SOL Non-Admin Reason: Patient Refused Duloxetine HCl (Duloxetine Hcl 60 Mg Capsule.) 60 mg PO DAILY [facility] Last Admin: 09/11/22 09:03 Dose: 60 mg Documented By: SOL Enoxaparin Sodium (Enoxaparin Sodium 40 Mg/0.4 Ml Syringe) 40 mg SUBCUT Q24H [facility] Last Admin: 09/10/22 21:06 Dose: 40 mg Documented By: JINA Fluticasone Propionate (Fluticasone Propionate Nasal 16 Gm [place]) 2 spray NOSTRIL-B DAILY [facility] Last Admin: 09/11/22 09:03 Dose: Not Given Documented By: SOL Non-Admin Reason: Patient Refused Fluticasone/Vilanterol (Fluticasone/Vilanterol 200/25 Blst.W.Dev) 1 puff INHALE RDAILY [facility] Last Admin: 09/11/22 08:28 Dose: Not Given Documented By: SOL Non-Admin Reason: Patient Refused Furosemide (Furosemide 40 Mg Tablet) 40 mg PO DAILY [facility]; Protocol Last Admin: 09/11/22 09:03 Dose: 40 mg Documented By: SOL Gabapentin (Gabapentin 300 Mg Capsule) 300 mg PO BEDTIME [facility] Last Admin: 09/10/22 21:05 Dose: 300 mg Documented By: JINA Hydromorphone HCl (Hydromorphone Hcl 1 Mg/Ml Syringe) 0.25 mg IVPUSH Q4H PRN; Protocol PRN Reason: Pain, Severe (Pain Scale 7-10) Last Admin: 09/10/22 23:25 Dose: 0.25 mg Documented By: JINA Ceftriaxone Sodium 1 gm/ (Sodium Chloride) 50 mls @ 100 mls/hr IV Q24H [facility] Ipratropium [place] (Ipratropium [place] 1 Puff/17 Mcg Inhaler) 2 puff INHALE QID PRN PRN Reason: wheezing Ketorolac Tromethamine (Ketorolac Tromethamine 30 Mg/Ml Vial) 15 mg IVPUSH Q6H PRN PRN Reason: Pain, Moderate (Pain Scale 4-6 Stop: 09/15/22 19:58 Last Admin: 09/11/22 05:38 Dose: 15 mg Documented By: ZULEIKA Lidocaine (Lidocaine 4 % Patch Adh..Patch) 1 patch TRANSDERMA DAILY [facility] Last Admin: 09/11/22 09:02 Dose: 1 patch Documented By: SOL Loratadine (Loratadine 10 Mg Tablet) 10 mg PO DAILY [facility] Last Admin: 09/11/22 09:03 Dose: 10 mg Documented By: SOL Melatonin (Melatonin 3 Mg Tablet) 6 mg PO BEDTIME PRN PRN Reason: insomnia Montelukast Sodium (Montelukast Sodium 10 Mg Tablet) 10 mg PO BEDTIME [facility] Last Admin: 09/10/22 21:05 Dose: 10 mg Documented By: CILOCL Non-Formulary Medication (Umeclidinium [Incruse Ellipta]) 1 inhalation INHALE DAILY [facility] Omeprazole (Omeprazole 20 Mg Capsule.Dr) 20 mg PO BID@0630,1630 [facility] Last Admin: 09/11/22 05:38 Dose: 20 mg Documented By: ZULEIKA Ondansetron HCl (Ondansetron Hcl 4 Mg/2 Ml Vial) 4 mg IVPUSH Q8H PRN PRN Reason: Nausea and Vomiting Last Admin: 09/11/22 12:28 Dose: 4 mg Documented By: CORTES Polyethylene Glycol (Polyethylene Glycol 3350 17 Gm Powd.Pack) 17 gm PO DAILY [facility] Last Admin: 09/11/22 09:04 Dose: Not Given Documented By: SOL Non-Admin Reason: Patient Refused Sodium Chloride (0.9 % Sodium Chloride Flush 3 Ml Syringe) 3 ml IVFLUSH QSHIFT [facility] Last Admin: 09/11/22 07:17 Dose: Not Given Documented By: INÉS Non-Admin Reason: IV Running Tamsulosin HCl (Tamsulosin Hcl 0.4 Mg Capsule) 0.8 mg PO BEDTIME [facility] Topiramate (Topiramate 25 Mg Tablet) 50 mg PO BID [facility] Last Admin: 09/11/22 09:03 Dose: 50 mg Documented By: SOL Vitamin D (Cholecalciferol (Vitamin D3) 25 Mcg Tablet) 50 mcg PO DAILY [facility] Last Admin: 09/11/22 09:03 Dose: 50 mcg Documented By: SOL Labs 09/11/22 05:43 09/11/22 05:43 Labs: Laboratory Results - last 24 hr 09/11/22 09/11/22 05:43 05:43 MCV 87.8 MCH 28.6 MCHC 32.6 RDW 12.3 Plt Count 184 MPV 9.0 L Immature Gran % (Auto) 0.3 Neut % (Auto) 54.2 Lymph % (Auto) 36.6 [place] % (Auto) 6.1 Eos % (Auto) 2.2 Baso % (Auto) 0.6 Lymph # (Auto) 2.3 [place] # (Auto) 0.4 Eos # (Auto) 0.1 Baso # (Auto) 0.0 Abs Immat Gran (auto) 0.02 Absolute Neuts (auto) 3.5 Absolute Nucleated RBC 0.000 Nucleated RBC % (auto) 0.0 Anion Gap 11 L Estim Creat Clear Calc 84.9 Estimated GFR > 60 Random Glucose 95 Calcium 9.1 D Microbiology Microbiology Results: Microbiology 09/10/22 Unknown Urine Culture - Final Urine clean catch - Urine rivera top No growth. Assessment and Plan (1) UTI (urinary tract infection): Status: Acute (2) Nephrolithiasis: Status: Acute (3) Pyelonephritis: Status: Acute Plan 57-year-old female with history of anxiety, osteoarthritis, moderate persistent asthma, depression, and migraine headaches admitted for UTI and nephrolithiasis. #Acute UTI -UA with 1+ leukocytes, 2+ blood, negative nitrates, urinary sediment, negative bacteria -failed outpatient treatment with Ceftin -continue IV ceftriaxone -urine culture and blood cultures pending -no leukocytosis, hemodynamically stable.? No sepsis -low suspicion for pyelonephritis at this time but does have mild left-sided CVA tenderness.? CT abdomen/pelvis: 1.? Duplicated bilateral renal collecting system with mild dilation of the left lower pole moiety collecting system and left lower pole moiety ureter throughout its course, similar to prior. Mild urothelial thickening. Correlate clinically with any signs or symptoms of ascending urinary tract infection and with urinalysis. 2.? The previously seen 2 mm left distal ureteral stone is no longer identified. 3.? No ureteral calculi. 4.? Unchanged punctate nonobstructing left upper pole renal calculus. 5.? No other acute intra-abdominal process identified. # nephrolithiasis -CT of abdomen/pelvis as above. -Flomax at bedtime -ondansetron p.r.n. nausea/vomiting -Pain management with pain scale added urology consult # moderate persistent asthma-without acute exacerbation -continue home inhalers.? Hold Dupixent -albuterol p.r.n. # anxiety/depression -continue home meds # osteoarthritis of multiple joints -lidocaine patch p.r.n., gabapentin # HLD -continue statin DVT prophylaxis-Lovenox Full code ongoing hospitalization need: Persistent abdominal pain-nephrolithiasis versus UTI-on iv antibiotics ,need urology eval Time Spent With Patient Time: Total time managing care of this patient today ____ minutes. Quality Stroke Does the patient have a stroke diagnosis?: No VTE Prior VTE?: No VTE Risk Level:: Medical - moderate - high VTE Device Contraindication: Treatment Not Indicated VTE Drug Contraindication: N/A - Med Ordered
[2022-09-11 14:59] VITALS: BP 120/67; PULSE 76; RESP 18; TEMP 36.7; O2SAT 96
--- NOTE | 2022-09-11 15:34 | MHC.CM.PN ---
per rounds pt not ready for dc today plan remains home no services
[2022-09-11] MEDS: 0.9 % Sodium Chloride Flush 3 ML SYRINGE IVFLUSH ×2 (16:47→20:07)
[2022-09-11] MEDS: cefTRIAXone sodium 1 GM in 0.9 % Sodium Chloride 50 ML IV (16:47)
[2022-09-11] MEDS: HYDROmorphone HCl 1 MG/ML SYRINGE 0.25 MG IVPUSH (17:40)
[2022-09-11 19:32] VITALS: BP 104/67; PULSE 78; RESP 18; TEMP 37.1; O2SAT 98
[2022-09-11] MEDS: Tamsulosin HCL 0.4 MG CAPSULE 0.8 MG PO (20:06)
[2022-09-11] MEDS: Docusate Sodium 100 MG CAPSULE PO (20:06)
[2022-09-11] MEDS: Montelukast Sodium 10 MG TABLET PO (20:06)
[2022-09-11] MEDS: Gabapentin 300 MG CAPSULE PO (20:06)
[2022-09-11] MEDS: Amitriptyline HCl 50 MG TABLET PO (20:06)
[2022-09-11] MEDS: Atorvastatin Calcium 40 MG TABLET PO (20:06)
[2022-09-11] MEDS: Enoxaparin Sodium 40 MG/0.4 ML SYRINGE SUBCUT (20:07)
[2022-09-12] VITALS: BP 99/59; PULSE 74; RESP 20; TEMP 36.7; O2SAT 94
[2022-09-12] MEDS: Omeprazole 20 MG CAPSULE.DR PO ×2 (05:43→16:34)
[2022-09-12] MEDS: Ketorolac Tromethamine 30 MG/ML VIAL 15 MG IVPUSH ×2 (05:45→20:32)
[2022-09-12 07:40] VITALS: BP 103/64; PULSE 66; RESP 16; TEMP 36.4; O2SAT 94
[2022-09-12] MEDS: Lidocaine 4 % Patch ADH..PATCH 1 PATCH TRANSDERMA ×2 (08:09→16:46)
[2022-09-12] MEDS: Loratadine 10 MG TABLET PO (08:10)
[2022-09-12] MEDS: Docusate Sodium 100 MG CAPSULE PO ×2 (08:10→20:20)
[2022-09-12] MEDS: polyethylene glycoL 3350 17 GM POWD.PACK PO (08:10)
[2022-09-12] MEDS: Topiramate 25 MG TABLET 50 MG PO ×2 (08:10→20:21)
[2022-09-12] MEDS: Cholecalciferol (Vitamin D3) 25 MCG TABLET 50 MCG PO (08:10)
[2022-09-12] MEDS: DULoxetine HCl 60 MG CAPSULE.DR PO (08:10)
[2022-09-12] MEDS: busPIRone HCl 5 MG TABLET PO ×2 (08:10→20:21)
[2022-09-12] MEDS: Furosemide 40 MG TABLET PO (08:10)
[2022-09-12] MEDS: 0.9 % Sodium Chloride Flush 3 ML SYRINGE IVFLUSH ×2 (08:10→16:45)
[2022-09-12 14:57] VITALS: BP 114/58; PULSE 93; RESP 15; TEMP 36.8; O2SAT 95
--- NOTE | 2022-09-12 15:20 | HO.PM.IMPN ---
Subjective Subjective Date of Service: 09/12/22 Interval History: Follow-up for UTI and nephrolithiasis Review of Systems Patient is still having significant flank pain as well as chills Feels nauseated says unable to tolerate food yet. No fevers Physical Exam Vital Signs: Vital Signs: Last Vital Signs Temp 98.2 F 09/12/22 14:57 Pulse 93 09/12/22 14:57 Resp 15 09/12/22 14:57 BP 114/58 L 09/12/22 14:57 Pulse Ox 95 09/12/22 14:57 O2 Del Method 09/12/22 14:57 BMI result Body Mass Index 26.9 Appearance: Alert.? Oriented X3.?pain cvs: rrr, [id number] . res: clear to auscultation ,no rhonchii or wheezing abd: no rebound or guarding ,flank pain left side predominantly, bs present. ext pulses present , no cyanosis . neuro: axo3 , nonfocal. Objective Data Active Medications Acetaminophen (Acetaminophen 325 Mg Tablet) 650 mg PO Q6H PRN PRN Reason: Pain, Mild (Pain Scale 1-3) Albuterol Sulfate (Albuterol Sulfate (0.083%) 2.5 Mg/3 Ml Vial.Neb) 2.5 mg INHALE Q4H PRN PRN Reason: shortness of breath or wheezing Amitriptyline HCl (Amitriptyline Hcl 50 Mg Tablet) 50 mg PO BEDTIME [facility] Last Admin: 09/11/22 20:06 Dose: 50 mg Documented By: EDUARDO Atorvastatin Calcium (Atorvastatin Calcium 40 Mg Tablet) 40 mg PO BEDTIME [facility] Last Admin: 09/11/22 20:06 Dose: 40 mg Documented By: EDUARDO Buspirone HCl (Buspirone Hcl 5 Mg Tablet) 5 mg PO BID [facility] Last Admin: 09/12/22 08:10 Dose: 5 mg Documented By: MARIA ANTONIA Docusate Sodium (Docusate Sodium 100 Mg Capsule) 100 mg PO BID [facility] Last Admin: 09/12/22 08:10 Dose: 100 mg Documented By: MARIA ANTONIA Duloxetine HCl (Duloxetine Hcl 60 Mg Capsule.) 60 mg PO DAILY [facility] Last Admin: 09/12/22 08:10 Dose: 60 mg Documented By: MARIA ANTONIA Enoxaparin Sodium (Enoxaparin Sodium 40 Mg/0.4 Ml Syringe) 40 mg SUBCUT Q24H [facility] Last Admin: 09/11/22 20:07 Dose: 40 mg Documented By: EDUARDO Fluticasone Propionate (Fluticasone Propionate Nasal 16 Gm [place]) 2 spray NOSTRIL-B DAILY [facility] Last Admin: 09/12/22 10:46 Dose: Not Given Documented By: MARIA ANTONIA Non-Admin Reason: Patient Refused Fluticasone/Vilanterol (Fluticasone/Vilanterol 200/25 Blst.W.Dev) 1 puff INHALE RDAILY [facility] Last Admin: 09/12/22 09:03 Dose: Not Given Documented By: LIONEL Non-Admin Reason: med not avail. pharm called Furosemide (Furosemide 40 Mg Tablet) 40 mg PO DAILY [facility]; Protocol Last Admin: 09/12/22 08:10 Dose: 40 mg Documented By: MARIA ANTONIA Gabapentin (Gabapentin 300 Mg Capsule) 300 mg PO BEDTIME [facility] Last Admin: 09/11/22 20:06 Dose: 300 mg Documented By: EDUARDO Hydromorphone HCl (Hydromorphone Hcl 1 Mg/Ml Syringe) 0.25 mg IVPUSH Q4H PRN; Protocol PRN Reason: Pain, Severe (Pain Scale 7-10) Last Admin: 09/11/22 17:40 Dose: 0.25 mg Documented By: CORTES Ceftriaxone Sodium 1 gm/ (Sodium Chloride) 50 mls @ 100 mls/hr IV Q24H [facility] Last Infusion: 09/11/22 17:45 Dose: 0 mls/hr Documented By: CORTES Ipratropium [place] (Ipratropium [place] 1 Puff/17 Mcg Inhaler) 2 puff INHALE QID PRN PRN Reason: wheezing Ketorolac Tromethamine (Ketorolac Tromethamine 30 Mg/Ml Vial) 15 mg IVPUSH Q6H PRN PRN Reason: Pain, Moderate (Pain Scale 4-6 Stop: 09/15/22 19:58 Last Admin: 09/12/22 05:45 Dose: 15 mg Documented By: EDUARDO Lidocaine (Lidocaine 4 % Patch Adh..Patch) 1 patch TRANSDERMA DAILY [facility] Last Admin: 09/12/22 08:09 Dose: 1 patch Documented By: MARIA ANTONIA Loratadine (Loratadine 10 Mg Tablet) 10 mg PO DAILY [facility] Last Admin: 09/12/22 08:10 Dose: 10 mg Documented By: MARIA ANTONIA Melatonin (Melatonin 3 Mg Tablet) 6 mg PO BEDTIME PRN PRN Reason: insomnia Montelukast Sodium (Montelukast Sodium 10 Mg Tablet) 10 mg PO BEDTIME [facility] Last Admin: 09/11/22 20:06 Dose: 10 mg Documented By: EDUARDO Non-Formulary Medication (Umeclidinium [Incruse Ellipta]) 1 inhalation INHALE DAILY [facility] Omeprazole (Omeprazole 20 Mg Capsule.) 20 mg PO BID@0630,1630 [facility] Last Admin: 09/12/22 05:43 Dose: 20 mg Documented By: EDUARDO Ondansetron HCl (Ondansetron Hcl 4 Mg/2 Ml Vial) 4 mg IVPUSH Q8H PRN PRN Reason: Nausea and Vomiting Last Admin: 09/11/22 12:28 Dose: 4 mg Documented By: CORTES Polyethylene Glycol (Polyethylene Glycol 3350 17 Gm Powd.Pack) 17 gm PO DAILY [facility] Last Admin: 09/12/22 08:10 Dose: 17 gm Documented By: MARIA ANTONIA Sodium Chloride (0.9 % Sodium Chloride Flush 3 Ml Syringe) 3 ml IVFLUSH QSHIFT [facility] Last Admin: 09/12/22 08:10 Dose: 3 ml Documented By: MARIA ANTONIA Tamsulosin HCl (Tamsulosin Hcl 0.4 Mg Capsule) 0.8 mg PO BEDTIME [facility] Last Admin: 09/11/22 20:06 Dose: 0.8 mg Documented By: EDUARDO Topiramate (Topiramate 25 Mg Tablet) 50 mg PO BID [facility] Last Admin: 09/12/22 08:10 Dose: 50 mg Documented By: MARIA ANTONIA Vitamin D (Cholecalciferol (Vitamin D3) 25 Mcg Tablet) 50 mcg PO DAILY [facility] Last Admin: 09/12/22 08:10 Dose: 50 mcg Documented By: MARIA ANTONIA Labs 09/11/22 05:43 09/11/22 05:43 Microbiology Microbiology Results: Microbiology 09/10/22 Unknown Urine Culture - Final Urine clean catch - Urine rivera top No growth. Assessment and Plan (1) UTI (urinary tract infection): Status: Acute (2) Nephrolithiasis: Status: Acute (3) Pyelonephritis: Status: Acute Plan 57-year-old female with history of anxiety, osteoarthritis, moderate persistent asthma, depression, and migraine headaches admitted for UTI and nephrolithiasis. #Acute UTI -UA with 1+ leukocytes, 2+ blood, negative nitrates, urinary sediment, negative bacteria -failed outpatient treatment with Ceftin feel nauseates,has chills, unable to tolerate food -continue IV ceftriaxone,iv hydration, antiemtics -urine culture pendin and blood cultures added -no leukocytosis, hemodynamically stable.? No sepsis -low suspicion for pyelonephritis at this time but does have mild left-sided CVA tenderness.? CT abdomen/pelvis: 1.? Duplicated bilateral renal collecting system with mild dilation of the left lower pole moiety collecting system and left lower pole moiety ureter throughout its course, similar to prior. Mild urothelial thickening. Correlate clinically with any signs or symptoms of ascending urinary tract infection and with urinalysis. 2.? The previously seen 2 mm left distal ureteral stone is no longer identified. 3.? No ureteral calculi. 4.? Unchanged punctate nonobstructing left upper pole renal calculus. 5.? No other acute intra-abdominal process identified. # nephrolithiasis -CT of abdomen/pelvis as above. -Flomax at bedtime -ondansetron p.r.n. nausea/vomiting -Pain management with pain scale added urology consult # moderate persistent asthma-without acute exacerbation -continue home inhalers.? Hold Dupixent -albuterol p.r.n. # anxiety/depression -continue home meds # osteoarthritis of multiple joints -lidocaine patch p.r.n., gabapentin # HLD -continue statin DVT prophylaxis-Lovenox Full code ongoing hospitalization need: Persistent abdominal pain-nephrolithiasis versus UTI-on iv antibiotics ,need urology eval Time Spent With Patient Time: Total time managing care of this patient today ____ minutes. Quality Stroke Does the patient have a stroke diagnosis?: No VTE Prior VTE?: No VTE Risk Level:: Medical - moderate - high VTE Device Contraindication: Treatment Not Indicated VTE Drug Contraindication: N/A - Med Ordered
[2022-09-12] MEDS: cefTRIAXone sodium 1 GM in 0.9 % Sodium Chloride 50 ML IV (16:34)
[2022-09-12] MEDS: Lactated Ringers 1,000 ML 70 ML IVCONT (16:34)
[2022-09-12 19:18] VITALS: BP 126/63; PULSE 78; RESP 16; TEMP 36.4; O2SAT 94
[2022-09-12] MEDS: Tamsulosin HCL 0.4 MG CAPSULE 0.8 MG PO (20:20)
[2022-09-12] MEDS: Enoxaparin Sodium 40 MG/0.4 ML SYRINGE SUBCUT (20:20)
[2022-09-12] MEDS: Montelukast Sodium 10 MG TABLET PO (20:20)
[2022-09-12] MEDS: Gabapentin 300 MG CAPSULE PO (20:21)
[2022-09-12] MEDS: Atorvastatin Calcium 40 MG TABLET PO (20:21)
[2022-09-12] MEDS: Amitriptyline HCl 50 MG TABLET PO (20:21)
[2022-09-12 23:19] VITALS: BP 111/58; PULSE 75; RESP 15; TEMP 36.8; O2SAT 95
[2022-09-13 04:03] VITALS: BP 98/57; PULSE 69; RESP 15; TEMP 36.1; O2SAT 95
[2022-09-13] MEDS: Omeprazole 20 MG CAPSULE.DR PO (05:24)
[2022-09-13] MEDS: Lactated Ringers 1,000 ML 70 ML IVCONT (05:30)
[2022-09-13 06:15] LABS: Hematocrit 34.7 % (37.0-47.0); Hemoglobin 11.2 g/dl (12.0-16.0); Mean Corpuscular HGB Conc 32.3 g/dl (31.0-35.0); Mean Corpuscular Hemoglobin 28.2 pg (27.0-33.0); Mean Corpuscular Volume 87.4 fL (80.0-98.0); Mean Platelet Volume 9.6 fL (9.4-12.3); Platelet Count 226 X10*3/uL (160-400); Red Blood Count 3.97 X10*6/uL (4.20-5.50); Red Cell Distribution Width 11.9 % (11.0-16.0); White Blood Count 6.6 X10*3/uL (4.8-10.8)
[2022-09-13 06:38] LABS: Anion Gap 13 (12-20); Blood Urea Nitrogen 13 mg/dL (9-16); Calcium 9.1 mg/dL (8.4-10.2); Carbon Dioxide 27 mmol/L (22-29); Chloride 105 mmol/L (96-108); Creatinine Clr Calc Pharmacy 86.2; Estimated Glomerular Filt Rate > 60; Glucose Random 93 mg/dL (60-115); Potassium 3.8 mmol/L (3.3-5.1); Sodium 141 mmol/L (135-145)
[2022-09-13 07:42] VITALS: BP 106/55; PULSE 64; RESP 16; TEMP 36.6; O2SAT 95
[2022-09-13] MEDS: DULoxetine HCl 60 MG CAPSULE.DR PO (07:42)
[2022-09-13] MEDS: Cholecalciferol (Vitamin D3) 25 MCG TABLET 50 MCG PO (07:42)
[2022-09-13] MEDS: busPIRone HCl 5 MG TABLET PO (07:42)
[2022-09-13] MEDS: Docusate Sodium 100 MG CAPSULE PO (07:42)
[2022-09-13] MEDS: Topiramate 25 MG TABLET 50 MG PO (07:42)
[2022-09-13] MEDS: Loratadine 10 MG TABLET PO (07:42)
[2022-09-13] MEDS: polyethylene glycoL 3350 17 GM POWD.PACK PO (07:43)
[2022-09-13] MEDS: Lidocaine 4 % Patch ADH..PATCH 1 PATCH TRANSDERMA ×3 (07:43→07:47)
[2022-09-13] MEDS: 0.9 % Sodium Chloride Flush 3 ML SYRINGE IVFLUSH (07:46)
--- NOTE | 2022-09-13 11:17 | MHC.CM.PN ---
pt dcd home no skilled services ordered by
--- NOTE | 2022-09-13 12:40 | PM.DS ---
DS: Providers Provider Date of Service: 09/13/22 Date of admission: 09/10/22 19:58 Primary care physician: JENESN Reynolds Consults: 09/11/22 08:43 Consult to Urology Routine Consulting Provider: [facility] Reason for consultation: nephrolithasis/pyelonephritis Has provider been notified: No 09/13/22 07:30 Consult to Infectious Diseases Routine Consulting Provider: Heather Newberry Reason for consultation: Nephrolithasis /?pyelonephritis Has provider been notified: No DS: Diagnosis Discharge Diagnosis (1) UTI (urinary tract infection): Status: Acute (2) Nephrolithiasis: Status: Acute (3) Pyelonephritis: Status: Acute DS: Summary Hospital Course Hospital Course: 57-year-old female with history of anxiety, osteoarthritis, moderate persistent asthma, depression, and migraine headaches presents to the ED for evaluation of left flank and left lower quadrant pain ongoing for 4 days.? She was seen in the ED 3 days ago and was diagnosed with nonobstructing 2 mm nephrolithiasis mild hydronephrosis noted on CT of the abdomen/pelvis and was discharged with Ceftin and ketorolac for UTI and nephrolithiasis.? He states that the left flank pain has gotten worse and is now radiating into the left lower quadrant.? There is no associated nausea, vomiting, limited urine output, and dark urine.? She denies any fevers, chills, dysuria, lukasz hematuria, increased urinary frequency.? She does not feel that she has passed any stones.? She has also noted anorexia with decreased p.o. intake.? In the ED, patient afebrile, vitals stable.? No leukocytosis.? Renal function baseline.? Electrolytes normal except for mild hypokalemia 3.2.? UA significant for 1+ leukocytes, 2+ blood, urinary sediment, no bacteria seen.? There is no urine culture collected at previous ED visit.? Urine culture and blood cultures pending from today.? She was treated empirically with 1 g ceftriaxone and IV fluids. Hospital course: Patient was admitted for possible nephrolithiasis and possible pyelonephritis: Patient was recently here in the ED and went home with p.o. antibiotics Cefdinir and pain medication, tamsulosin: She did not get better and came back with flank pain ,ct abd noted -seems possible infection ,previous ureteral stone seems like passed ( not seen in admission ct abd), even though urine culture did not grow possibly due to she was on antibiotic out patiently, but her symptoms are possible pyelonephritis so was started the patient on IV antibiotics-blood cultures preliminaries at 24 hour negative, patient will go home with p.o. antibiotics. Will continue tamsulosin and p.o. antibiotic out patiently ,continue her ketrolac for pain outpatient. Above was discussed with the Urology-recommended to switch Levaquin upon discharge for possible pyelonephritis. follow up with urology outpatiently . plan: Complete the course of antibiotics, tamsulosin adjusted to 0.8 mg daily, continue ketorolac for pain. Follow-up with urologist outpatient. Above management discussed the patient in detail length, assessment and plan coordination time spent 50 minute. Time Spent with Patient Time attestation: Total time managing care of this patient today ____ minutes. Discharge coordination time: Greater than 30 minutes Quality: Safe Use of Opioids Does Pt have an Active Cancer Diagnosis on the Problem List?: No Quality: Stroke Does the patient have a stroke diagnosis?: No Physical Exam Vital Signs: Vital Signs: Last Vital Signs Temp 97.8 F 09/13/22 07:42 Pulse 64 09/13/22 07:42 Resp 16 09/13/22 07:42 BP 106/55 L 09/13/22 07:42 Pulse Ox 95 09/13/22 07:42 O2 Del Method 09/13/22 07:42 BMI result Body Mass Index 26.9 Appearance: Alert.? Oriented X3.?pain cvs: rrr, [id number] . res: clear to auscultation ,no rhonchii or wheezing abd: no rebound or guarding ,flank pain seems improved significantly cva tenderness improved, bs present. ext pulses present , no cyanosis . neuro: axo3 , nonfocal. DS: Data Data Completed and Pending Completed studies during hospitalization [Text1]: Procedures Introduction of Remdesivir Anti-infective into Peripheral Vein, Percutaneous Approach, [email or web address] [email or web address] (11/30/20) Labs on day of discharge: Laboratory Results - last 24 hr 09/13/22 09/13/22 05:29 05:29 WBC 6.6 RBC 3.97 L Hgb 11.2 L Hct 34.7 L MCV 87.4 MCH 28.2 MCHC 32.3 RDW 11.9 Plt Count 226 MPV 9.6 Absolute Nucleated RBC 0.000 Nucleated RBC % (auto) 0.0 Sodium 141 Potassium 3.8 Chloride 105 Carbon Dioxide 27 Anion Gap 13 BUN 13 Creatinine 0.66 Estim Creat Clear Calc 86.2 Estimated GFR > 60 Random Glucose 93 Calcium 9.1 Preliminary micro results at discharge 09/12/22 10:23 Blood Culture - Preliminary Blood - Venous No growth after 24 hours. 09/12/22 10:23 Blood Culture - Preliminary Blood - Venous No growth after 24 hours. Imaging Chest x-ray: Radiologist's impression: ITS Impressions Renal Ultrasound 09/10/22 15:58 IMPRESSION: 1. No hydronephrosis. 2. Duplicated collecting systems bilaterally. Abdomen/Pelvis CT 09/10/22 19:36 IMPRESSION: 1. Duplicated bilateral renal collecting system with mild dilation of the left lower pole moiety collecting system and left lower pole moiety ureter throughout its course, similar to prior. Mild urothelial thickening. Correlate clinically with any signs or symptoms of ascending urinary tract infection and with urinalysis. 2. The previously seen 2 mm left distal ureteral stone is no longer identified. 3. No ureteral calculi. 4. Unchanged punctate nonobstructing left upper pole renal calculus. 5. No other acute intra-abdominal process identified. Discharge Plan Discharge Anticipated Discharge Date/Time: 09/13/22 10:54 Patient Disposition: Home, Self-Care Discharge Diagnosis: nephrolithasis ,possible pyelonephritis Referrals: Carl Zamora MD [Physician] - 1 Week (follow up outpatient) [place] [Physician] - 09/18/22 2:45 pm (Appt with Yamile Muhammad NP at [facility] on 09/18/22 at 2:45 PM) Discharge Medications: New levofloxacin 500 mg tablet 500 mg PO DAILY Qty: 9 0RF Continued albuterol sulfate 2.5 mg /3 mL (0.083 %) solution for nebulization 2.5 mg inhalation Q4-6H PRN (Reason: shortness of breath or wheezing) Qty: 90 0RF Breo Ellipta 200-25 mcg/dose blister with device 1 ea inhalation DAILY Qty: 60 6RF Incruse Ellipta 62.5 mcg/actuation blister with device 1 inh inhalation DAILY Qty: 30 6RF Dupixent Pen 300 mg/2 mL pen injector 300 mg subcut Q2W Qty: 4 11RF gabapentin 300 mg capsule 300 mg PO BEDTIME Qty: 90 3RF cetirizine 10 mg tablet 10 mg PO DAILY lidocaine [Lidoderm] 5 % adhesive patch,medicated 1 patch topical DAILY Rx Instructions: 12 HOURS ON 12 HOURS OFF omeprazole 20 mg capsule,delayed release(DR/EC) 20 mg PO BID montelukast 10 mg tablet 10 mg PO BEDTIME polyethylene glycol 3350 17 gram/dose powder 17 g PO DAILY fluticasone propionate 50 mcg/actuation spray,suspension 2 spray intranasal DAILY duloxetine 60 mg capsule,delayed release(DR/EC) 60 mg PO DAILY diclofenac sodium 1 % gel 2 g topical QID PRN (Reason: Pain) melatonin 5 mg tablet 5 - 10 mg PO BEDTIME PRN (Reason: insomnia) furosemide 40 mg tablet 1 tab PO QAM Atrovent HFA 17 mcg/actuation HFA aerosol inhaler 2 puff INHALATION QID PRN (Reason: wheezing) cholecalciferol (vitamin D3) [Vitamin D3] 50 mcg (2,000 unit) capsule 1 cap PO QAM atorvastatin 40 mg tablet 1 tab PO BEDTIME ketorolac 10 mg tablet 10 mg PO Q6H PRN (Reason: pain) 5 Days Qty: 20 0RF amitriptyline 50 mg tablet 50 mg PO BEDTIME buspirone 5 mg tablet 5 mg PO BID topiramate 50 mg tablet 50 mg PO BID docusate sodium [Colace] 100 mg capsule 100 mg PO BID Changed tamsulosin [Flomax] 0.4 mg capsule 0.8 mg PO BEDTIME Qty: 30 0RF Discontinued cefdinir 300 mg capsule 300 mg PO BID 5 Days Qty: 10 0RF Discharge Orders: Discharge Order (Routine); Ordered 09/13/22 Ordered By: Papo Gomez Diet: Advance to usual diet Activity on Discharge: As tolerated Stand Alone Forms: Patient Portal Discharge page Care Plan Goals: Patient was admitted for possible nephrolithiasis and possible pyelonephritis: Patient was recently here in the ED and went home with p.o. antibiotics Cefdinir and pain medication, tamsulosin: She did not get better and came back with flank pain ,ct abd noted -seems possible infection ,previous ureteral stone seems like passed ( not seen in admission ct abd), even though urine culture did not grow possibly due to she was on antibiotic out patiently, but her symptoms are possible pyelonephritis so was started the patient on IV antibiotics-blood cultures preliminaries a 24 hour negative, patient will go home with p.o. antibiotics. Will continue tamsulosin and p.o. antibiotic out patiently ,continue her ketrolac for pain outpatient. follow up with urology outpatiently . Health Concerns: as above. Plan of Treatment: as above. Assessment: as above.
[2022-09-13] MEDS: Ketorolac Tromethamine 30 MG/ML VIAL 15 MG IVPUSH (13:28)
[2022-09-13] MEDS: ondansetron HCL 4 MG/2 ML VIAL IVPUSH (13:28)
[2022-09-13] MEDS: levoFLOXacin 500 MG TABLET PO (13:28)
== END 2022-09-13 14:43 | disposition home or self-care (01) | DRG 463 ==
LOC: HO.ED 19:08 → HO.EDOVER 20:14 → HO.IMC 09-11 08:17
PROVIDERS: Physician Assistant; Admitting Provider Physician Assistant; Emergency Provider Internal Medicine; PCP Registered Nurse; Visit Provider Internal Medicine
DX: N12 Tubulo-interstitial nephritis, not specified as acute or chronic (principal); E78.5 Hyperlipidemia, unspecified; F41.9 Anxiety disorder, unspecified; F32.A Depression, unspecified; J45.40 Moderate persistent asthma, uncomplicated; M15.9 Polyosteoarthritis, unspecified; Z20.822 Contact with and (suspected) exposure to COVID-19; Z79.51 Long term (current) use of inhaled steroids; Z79.899 Other long term (current) drug therapy
CPT/HCPCS: 36415; 74176; 76775; 80048; 80076; 81001; 83735; 85025; 85027; 87040; 87086; 87635; 99222; 99285; J0696; J1170; J1650; J1885; J2270; J2405

== ENCOUNTER 2022-09-25 07:16 | Outpatient (REF) | payer MEDICAID, SELFPAY ==
--- NOTE | ~2022-09-25 | CT_ITS ---
EXAMINATION: CT ABDOMEN AND PELVIS WITHOUT CONTRAST CLINICAL INFORMATION: Right CVA tenderness. Flank pain. Question stone. COMPARISON: 09/10/2022 TECHNIQUE: Multidetector volumetric imaging was performed from the superior aspect of the liver through the pubic symphysis. Sagittal and coronal reformatted images were obtained on the technologist's workstation. This CT examination was performed using dose optimization techniques as appropriate, variously including the following: *Automated exposure control *Adjustment of mA and/or kV according to patient size (this includes techniques or standardized protocols for targeted exams where dose is matched to indication/reason for exam; i.e. extremities or head) *Use of iterative reconstruction technique DLP: 337 mGy-cm FINDINGS: LUNG BASES: The visualized lung bases are unremarkable. LIVER, GALLBLADDER, AND BILIARY TREE: The liver is normal in size, shape, and attenuation. No focal hepatic lesion or biliary ductal dilatation is present. Cholecystectomy. PANCREAS: Unremarkable. SPLEEN: Unremarkable. ADRENAL GLANDS: Unremarkable. KIDNEYS AND URETERS: The kidneys are normal in size, shape, and attenuation. No hydronephrosis, hydroureter, or calculi seen. No perinephric stranding. Simple cyst at the upper pole of the right kidney. No specific follow-up recommended. BLADDER: Decompressed with no gross abnormality. GASTROINTESTINAL TRACT: The stomach is unremarkable. Normal caliber small bowel. No obstruction. No colonic wall thickening or inflammation. Normal appendix. No free air or free fluid. ABDOMINAL WALL: No significant hernia is appreciated. LYMPH NODES: Normal. VASCULAR: Unremarkable. PELVIC VISCERA: Uterus not seen. No adnexal mass. OSSEOUS STRUCTURES: No acute or suspicious osseous abnormality. Mild degenerative change with small osteophytes noted. CT/CT abdomen pelvis wo IV con IMPRESSION: No acute findings in the abdomen or pelvis. No hydronephrosis or nephrolithiasis. No inflammatory changes. Fleischner guidelines were followed.
== END 2022-09-25 07:17 | disposition home or self-care (01) ==
LOC: HO.CT 07:16
PROVIDERS: Visit Provider Family Medicine
DX: R10.9 Unspecified abdominal pain (principal)
CPT/HCPCS: 74176

== ENCOUNTER → 2022-11-19 08:47 | Outpatient (BNVA) | payer MEDICAID, SELFPAY | PROVIDERS: PCP Family Medicine; Visit Provider Nurse Practitioner Family | DX: N20.0 Calculus of kidney (principal); R10.9 Unspecified abdominal pain | CPT/HCPCS: 99202 ==

== ENCOUNTER 2022-12-09 09:36 | Outpatient (REF) | payer MEDICAID, SELFPAY ==
[2022-12-09 10:57] LABS: Blood Urea Nitrogen 12 mg/dL (9-16); Estimated Glomerular Filt Rate > 60
== END 2022-12-09 09:37 | disposition home or self-care (01) ==
LOC: HO.LAB 09:36
PROVIDERS: Visit Provider Nurse Practitioner Family
DX: N20.0 Calculus of kidney (principal); R10.9 Unspecified abdominal pain
CPT/HCPCS: 36415; 82565; 84520

== ENCOUNTER 2022-12-24 11:30 | Outpatient (REF) | payer MEDICAID, SELFPAY ==
--- NOTE | ~2022-12-24 | CT_ITS ---
EXAMINATION: CT ABDOMEN AND PELVIS WITHOUT AND WITH CONTRAST CLINICAL INFORMATION: Kidney stone COMPARISON: Previous CT of the abdomen and pelvis was recent September 2022 TECHNIQUE: Noncontrast CT of the abdomen and pelvis is performed followed by split bolus contrast-enhanced images using 85 mL Omnipaque 350 contrast.? Postcontrast imaging is performed during the combined nephrogram and excretion phase. Sagittal and coronal reformatted images were obtained on the technologist's workstation for both the precontrast and postcontrast phases. This CT examination was performed using dose optimization techniques as appropriate, variously including the following: *Automated exposure control *Adjustment of mA and/or kV according to patient size (this includes techniques or standardized protocols for targeted exams where dose is matched to indication/reason for exam; i.e. extremities or head) *Use of iterative reconstruction technique DLP: 699 mGy-cm FINDINGS: LUNG BASES: The visualized lung bases are unremarkable. LIVER, GALLBLADDER, AND BILIARY TREE: The liver is normal in size, shape, and attenuation. No focal hepatic lesion or biliary ductal dilatation is present. The gallbladder has been removed. PANCREAS: Unremarkable. SPLEEN: Unremarkable. ADRENAL GLANDS: Unremarkable. KIDNEYS AND URETERS: There is a duplicated renal collecting systems bilaterally. There is a small punctate 1 mm stone in the upper pole of the left kidney. There is question of a tiny punctate stone in the mid to lower pole of the right kidney. There are 2 small subcentimeter low-attenuation right renal lesion suggestive of cysts. No imaging follow-up. No renal mass. The collecting systems are otherwise normal. The ureters are not optimally opacified with excreted contrast. BLADDER: Unremarkable. GASTROINTESTINAL TRACT: The small and large bowel are unremarkable. The appendix is unremarkable. ABDOMINAL WALL: No significant hernia is appreciated. LYMPH NODES: Normal. VASCULAR: Unremarkable. PELVIC VISCERA: Uterus is not seen and has presumably been removed. No pelvic mass. OSSEUS STRUCTURES: Mild scoliosis of the spine. CT/CT urogram IMPRESSION: Duplicated renal collecting systems bilaterally. Small left upper pole stone and question small stone in the mid right kidney.
[2022-12-24] MEDS: iohexoL 350 MG/ML 100 ML INFUS..BTL IV (13:26)
== END 2022-12-24 11:31 | disposition home or self-care (01) ==
LOC: HO.CT 11:30
PROVIDERS: PCP Family Medicine; Visit Provider Nurse Practitioner Family
DX: N20.0 Calculus of kidney (principal); R10.9 Unspecified abdominal pain
CPT/HCPCS: 74178; Q9967

== ENCOUNTER → 2022-12-27 08:59 | Outpatient (BNVA) | payer OTHER, MEDICAID, SELFPAY | PROVIDERS: PCP Family Medicine; Visit Provider Nurse Practitioner Family | DX: Z13.89 Encounter for screening for other disorder (principal) ==

== ENCOUNTER 2023-03-26 14:05 | Outpatient (AMB) | payer MEDICAID, SELFPAY ==
[2023-03-26 14:13] VITALS: BP 110/60; PULSE 102; O2SAT 97; BMI 27.4
--- NOTE | 2023-03-26 14:13 | A.OFFVIS_ITS ---
Intake Vital Signs 03/26/23 14:13 Height 5 ft 2 in Weight 149 lb 14.629 oz BMI 27.4 BP 110/60 Blood Pressure Location Lt brachial Position Sitting Pulse 102 H Pulse Source Pulse Oximeter Pulse Oximetry (%) 97 Oxygen Delivery Method Room Air Intake Visit Reasons: shortness of breath at night Tire Repairer Required: No Nat Instructor: Nat Instructor offered & declined Accompanied by: Self / Same As Patient Allergies pollen extracts [POLLEN] Allergy (Unknown, Verified 03/26/23 14:15) RUNNY NOSE, ITCHY EYES seasonl allergies Allergy (Unknown, Uncoded 03/26/23 14:15) asthma attacks Medication List - Last Reconciled 03/26/23 by Shandra Denny LPN albuterol sulfate 2.5 mg (3 mL) inhalation Q4-6H PRN amitriptyline 50 mg PO BEDTIME atorvastatin 1 tab PO BEDTIME buspirone 5 mg PO BID cetirizine 10 mg PO DAILY cholecalciferol (vitamin D3) (Vitamin D3) 1 cap PO QAM diclofenac sodium 1% 2 grams topical QID PRN docusate sodium (Colace) 100 mg PO BID duloxetine 60 mg PO DAILY dupilumab (Dupixent) 300 mg (2 mL) subcut Q2W fluticasone furoate-vilanterol 200-25 mcg/dose (Breo Ellipta) 1 ea inhalation DAILY fluticasone propionate 50 mcg/actuation 2 sprays intranasal DAILY furosemide 20 mg PO QAM gabapentin 300 mg PO BEDTIME ipratropium bromide 17 mcg/actuation (Atrovent HFA) 2 puffs inhalation QID PRN lidocaine 5% (Lidoderm) 1 patch topical DAILY melatonin 5 - 10 mg PO BEDTIME PRN montelukast 10 mg PO BEDTIME omeprazole 20 mg PO BID polyethylene glycol 3350 17 grams PO DAILY pyridoxine (vitamin B6) 100 mg PO DAILY 90 days tamsulosin 0.4 mg PO BEDTIME 30 days topiramate 50 mg PO BID umeclidinium 62.5 mcg/actuation (Incruse Ellipta) 1 inh inhalation DAILY HPI shortness of breath at night HPI Details Alberta is a pleasant 57 year old female, nonsmoker, followed for underlying moderate to severe persistent allergic asthma and dyspnea on exertion. At baseline, she reports good symptomatic control on current regimen of Dupixent, Breo 200, albuterol MDI/nebs, and Singulair. Over the past two months she reports worsening dyspnea with suboptimal response to nebulizer. She denies any cough, wheezing or chest tightness. She reports paroxysmal noctural dyspnea as well as orthopnea and intermittent bilateral lower extremity edema. She has been sleeping with more pillows at night and feels chest pressure with e xertion. She is under the care of cardiology, Dr. Og, and has a follow up appointment within the next two weeks. Her last known echo was 12/2021, report below, which revealed mild diastolic dysfunction. PFSH Medical History Anxiety Arthritis Asthma COVID-19 Depression Migraine headache Surgical History Hx of cholecystectomy Hx of elbow surgery Hx of hysterectomy Social History Household Members: Family Household Members Other:: - [place] Housing: House Do you presently have visiting nurse or other home services: No Alcohol intake: never Patient Tobacco Use Status: Never used Tobacco Second Hand Smoke Exposure: No service: No Current occupational status: unemployed and disabled Current occupation: rt handed Review of Systems Const Denies chills, Denies excessive sweating, Denies fever(s), Denies headache(s) and Denies night sweats Eyes Denies dry eyes, Denies irritation and Denies itchy eyes ENT Reports Normal hearing present, Denies headache(s), Denies nasal congestion, Denies nasal discharge, Denies post nasal drip and Denies sore throat Card Denies chest pain, Denies chest pain at rest, Denies chest pain with activity, Reports dyspnea on exertion, Reports orthopnea and Reports paroxysmal nocturnal dyspnea Resp Denies chest congestion, Denies cough, Denies excessive phlegm production, Denies pain on inspiration, Denies pain with cough, Reports dyspnea on exertion, Denies stridor and Denies wheezing Musc Denies myalgias Neuro Reports Normal hearing present and Denies headache(s) Endo Denies excessive sweating Tristin/Lymph Denies lymphadenopathy Aller/Immun Denies itchy eyes, Denies seasonal rhinorrhea and Denies wheezing Physical Exam Vital Signs: Last Vital Signs Pulse 102 H 03/26/23 14:13 BP 110/60 07/26/23 14:13 Pulse Ox 97 03/26/23 14:13 Oxygen Delivery Method Room Air 03/26/23 14:13 BMI result Body Mass Index 27.4 Const General: cooperative, healthy appearing, comfortable, no acute distress, well developed and alert Orientation/consciousness: patient oriented x3 Limitations: no limitations HEENT Head: Yes normal to inspection, Yes normocephalic and Yes atraumatic Ears: hearing grossly normal bilaterally and external ears normal Eyes General: appearance normal, both eyes and all related structures Eyelids: Yes eyelids normal Sclerae: sclerae normal EOM: EOMs intact bilaterally Neck Neck: Yes normal visual inspection and Yes no lymphadenopathy Lymphatic: no lymphadenopathy noted Chest Chest palpation & inspection: normal inspection of the chest Resp Effort & Inspection: normal respiratory effort, able to speak in complete sentences, no audible wheezes, no cough, no stridor, not tachypneic, no tripod positioning and no use of accessory muscles Auscultation: clear to auscultation bilaterally Cardio Jugular venous distension: no JVD Rate: regular rate Skin Other: warm, dry General skin exam: no rashes or lesions noted Neuro General: patient oriented x3 Cranial nerves: Yes Normal hearing present Cognition (Neuro): normal cognition Gait exam (Neuro): Normal gait present Extrem Other: trace edema BLE Psych Appearance: grossly normal and well kempt Speech and movement: Normal speech and movement present and Clear speech present Affect: normal affect Attitude: cooperative Thought process: Normal thought process present Thought content: Normal thought content present Insight: Good insight present (Psych) Judgement: Good judgement present (Psych) Office Procedures 6 Minute Walk Time:: 14:45 SPO2 % at rest: 98 Pulse at rest: 96 SPO2 % during excercise: 95 Pulse during excercise: 115 SPO2 % after excercise: 98 Pulse after excercise: 93 Distance in yards walked: 200 Ofelia Score: 8 Performance Observations:: Alberta walked on level ground without assistance, she stopped to rest x2 due to 8/10 chest pain with chest tightness and shortness of breath. SPO2 stable for the entire walk on room air 95-97%, no supplemental O2. 12489 - 6 Minute Walk EKG Details: EKG done in the office, results given to provider. [id number], Complete Results Reviewed Results Reviewed: [address] [address] Cardiology Report Signed Patient: Alberta Bashir MR#: [id number] : 1965 Acct:[id number] Age/Sex: 56 / F ADM Date: 01/02/22 Ordering Physician: Jordan Roman MD Date of Service: 01/02/22 Procedure(s): CA echo transthoracic complete Accession Number(s): cc: Jordan Roman MD~ ? Transthoracic Echocardiogram Patient (Last, First, Middle): Alberta Bashir, Gender:? Female Patient ID:? ? ? [id number] Date of : ? 1965 Age: ? 56 Procedure Date:? 01/02/2022 Procedure Type:? Transthoracic Echocardiogram Location:? OP Height:? 157.48 cm? Weight: ? 68.95 kg BSA: ? 1.70 m2? Heart Rate: ? ? 71 bpm BP:? 104 / 70 mmHg Software Engineer Intern: ? ? SB Referring MD:? ? Jordan Roman MD Chief Wheelage Clerk:? ? Vincent Mckeon MD Symptoms:? R06.00 - Dyspnea, unspecified Study Quality: ? Fair ECG Rhythm:? ? ? Sinus ?? ? Conclusions: - 1.? Normal LV systolic function with grade 1 diastolic ? dysfunction? 2.? Normal cardiac valvular Doppler? 3.? Normal RV systolic pressure? 4.? No gross pericardial effusion? Findings Left Ventricle Normal left ventricular size, thickness, and systolic function. The visually estimated ejection fraction is between 60-65%.? Spectral Doppler is indicative of an impaired relaxation filling pattern.? E/E prime ratio is <8, consistent with normal filling pressures. Right Ventricle Normal right ventricular cavity size and systolic function. Atria Both atria are normal in size.? Interatrial shunt cannot be excluded. Aortic Valve The aortic valve structure and function is likely normal.? There is no aortic valve stenosis.? There is no aortic valve regurgitation. Mitral Valve Normal mitral valve structure and function.? There is trace mitral valve regurgitation.? There is no mitral valve stenosis. Pulmonic Valve The pulmonic valve is likely normal.? There is trace pulmonic valve regurgitation. Tricuspid Valve Likely normal tricuspid valve structure and function.? There is trace tricuspid valve regurgitation.? The right ventricular systolic pressure is normal.? Normal right atrial pressure.? There is no evidence of pulmonary hypertension. Great Vessels All visible segments of the aorta are normal in size.? The pulmonary artery was not well visualized. Venous The inferior vena cava is normal in size and collapses greater than 50% with inspiration. Pericardium/Pleural There is no evidence of pericardial effusion. Prior Study Comparison No prior study available for comparison. ? Measurements 2D Linear Measurements IVSd: ? 0.91? 0.6-0.9/0.6-1.0 cm LVIDd:? 4.14? 3.9-5.3/4.2-5.9 cm LVIDd Index:? 2.44? 2.4-3.2/2.2-3.1 cm/m2 LVIDs:? 2.81? 2.0-3.6 cm LVPWd:? 0.74? 0.7-1.1 cm LA Diam:? 2.80? 2.7-3.8/3.0-4.0 cm LAIDs Index:? 1.65? 1.5-2.3 cm/m2 LV Mass:? 128.39? 67-162/88-224 g LV Mass Index:? ? ? 75.52 ? 43-95/49-115 g/m2 LVOT Diam:? 1.90 ? 3.0+(-)1.3 cm ?? Mitral Valve MV Pk E:? 0.66 MV PK A:? 0.78 MV Decel Time:? ? ? 273.00 E/A:? 0.80 E'Lateral:? 7.40 E'Medial: ? 5.87 E/E' Med: ? 11.20 E/E' Lat: ? 8.90 PHT:? 80.00 MVA PHT:? 2.75 Decel [place]:? 2.40 ?? Aortic Valve AoV Pk Abdiaziz: ? 0.94 AoV Mn Abdiaziz: ? 0.66 AoV VTI:? 0.19 AoV Pk Grad:? 4.00 Aov Mn Grad:? 2.00 SONAL Cont.VTI: ? ? ? 2.49 ?LVOT LVOT Pk Abdiaziz:? 0.84 LVOT Mn Abdiaziz:? 0.60 LVOT VTI: ? 0.16 LVOT Pk Grad: ? ? ? 3.00 LVOT Mn Grad: ? ? ? 2.00 LVOT Diam:? 1.90 LVOT Area:? 2.84 ? Diastolic Function MV Pk E:? 0.66 MV Pk A:? 0.78 E/A:? 0.80 E'Medial: ? 5.87 E/E' Med: ? 11.20 E' Laterial:? 7.40 E/E' Lat: ? 8.90 ? Right Ventricle TAPSE (mm): ? 18.50 TVS' Abdiaziz: ? 11.00 ? Tricuspid Valve TR Pk Abdiaziz:? 1.89 TR Pk Grad: ? 14.00 RA Press: ? 3.00 RVSP: ? 17.00 ?? Great Vessels Aorta Sinus of Valsalva:? 2.91? 2.0-3.[address] [place]: ? 2.48? 1.7-3.4 cm Ao Asc: ? 2.90? 2.1-3.4 cm Ao Arch:? 2.60 Ao Desc:? 1.40 ? Pulmonary Valve PV Pk Abdiaziz:? 0.77 Peak PV Grad: ? ? ? 2.00 ?? Assessment & Plan Assessment & Plan (1) Dyspnea on exertion: Code(s): R06.00 - Dyspnea, unspecified (2) Asthma: Code(s): J45.909 - Unspecified asthma, uncomplicated Plan Alberta presents with worsening dyspnea on exertion for the last two months along with increased BLE edema, orthopnea and PND. Her symptoms are more consistent with cardiac etiology and encouraged her to contact her residential concierge. Advised her to weigh herself daily and call if there is more than 2-3 lb weight gain in one day or more than 5lbs in a week. Due to her worsening DURAN, a 6MWT was performed and there is no need for oxygen at this time. She maintained an oxygen saturation above 93% but did have a slight elevation in HR, max 115. She also reported chest pressure during the 6MWT, EKG performed and reviewed with Dr. Roman, no acute findings at this time. She is aware if symptoms worsen to seek emergent care. All questions were answered and patient is in agreement of plan. Will follow up PRN. Orders: Orders AMB 6 minute walk 03/26/23 J45.909 - Unspecified asthma, uncomplicated AMB EKG-In Office 03/26/23 J45.909 - Unspecified asthma, uncomplicated Coding Level of Care Code Est Pt Level 4 (71666) Diagnoses Dyspnea on exertion R06.00 Asthma J45.909 CPT Codes Coding ([id number]) EKG - CPT: 05052-[id number], Complete ([id number])
[2023-03-26 14:55] VITALS: PULSE 96; O2SAT 98
== END 2023-03-26 15:50 | disposition home or self-care (01) ==
PROVIDERS: PCP Family Medicine; Visit Provider Nurse Practitioner Family
DX: R06.00 Dyspnea, unspecified (principal); J45.909 Unspecified asthma, uncomplicated
CPT/HCPCS: 93010; 99214

== ENCOUNTER → 2023-03-26 14:05 | Outpatient (BNVA) | payer MEDICAID, SELFPAY | PROVIDERS: PCP Family Medicine; Visit Provider Nurse Practitioner Family | DX: J45.909 Unspecified asthma, uncomplicated (principal); R06.00 Dyspnea, unspecified | CPT/HCPCS: 93005; 94618; 99214 ==

== ENCOUNTER 2023-04-15 13:33 | Outpatient (AMB) | payer MEDICAID, SELFPAY ==
--- NOTE | 2023-04-15 13:34 | MHC.OFFVIS ---
Intake Vital Signs 04/15/23 13:36 Height 5 ft 2 in Weight 147 lb 14.883 oz BMI 27.1 BP 122/88 Blood Pressure Location Rt brachial Position Sitting Pulse 88 Pulse Source Pulse Oximeter Pulse Oximetry (%) 97 Oxygen Delivery Method Room Air Intake Visit Reasons: osteoarthritis/insurance inactive Intake Note: Patient presents for follow up Allergies pollen extracts [POLLEN] Allergy (Unknown, Verified 04/15/23 13:37) RUNNY NOSE, ITCHY EYES seasonl allergies Allergy (Unknown, Uncoded 04/15/23 13:37) asthma attacks Medication List - Last Reconciled 04/15/23 by China Levine MD albuterol sulfate 2.5 mg (3 mL) inhalation Q4-6H PRN amitriptyline 50 mg PO BEDTIME atorvastatin 1 tab PO BEDTIME buspirone 5 mg PO BID cetirizine 10 mg PO DAILY cholecalciferol (vitamin D3) (Vitamin D3) 1 cap PO QAM diclofenac sodium 1% 2 grams topical QID PRN docusate sodium (Colace) 100 mg PO BID duloxetine 60 mg PO DAILY dupilumab (Dupixent) 300 mg (2 mL) subcut Q2W fluticasone furoate-vilanterol 200-25 mcg/dose (Breo Ellipta) 1 ea inhalation DAILY fluticasone propionate 50 mcg/actuation 2 sprays intranasal DAILY furosemide 40 mg PO QAM gabapentin 300 mg PO BEDTIME ipratropium bromide 17 mcg/actuation (Atrovent HFA) 2 puffs inhalation QID PRN lidocaine 5% (Lidoderm) 1 patch topical DAILY melatonin 5 - 10 mg PO BEDTIME PRN montelukast 10 mg PO BEDTIME omeprazole 20 mg PO BID polyethylene glycol 3350 17 grams PO DAILY pyridoxine (vitamin B6) 100 mg PO DAILY 90 days tamsulosin 0.4 mg PO BEDTIME 30 days topiramate 50 mg PO BID umeclidinium 62.5 mcg/actuation (Incruse Ellipta) 1 inh inhalation DAILY HPI HPI Comments History of Present Illness Details This is a 57-year-old female presents for evaluation of generalized osteoarthritis. She was last seen by Laurie Jo 06/2022. Patient states that she has chronic pain everywhere including her neck, elbows, hands. She states that over the last 1-2 weeks she has been having neck pain radiating to her shoulders. She also has been having pain in her left thumb. She takes duloxetine and gabapentin she sometimes applies Voltaren gel on affected areas. [facility] Medical History Anxiety Arthritis Asthma COVID-19 Depression Migraine headache Surgical History Hx of cholecystectomy Hx of elbow surgery Hx of hysterectomy Social History Household Members: Family Household Members Other:: - [place] Housing: House Do you presently have visiting nurse or other home services: No Alcohol intake: never Patient Tobacco Use Status: Never used Tobacco Second Hand Smoke Exposure: No service: No Current occupational status: unemployed and disabled Current occupation: rt handed Review of Systems ENT Reports neck pain Musc Reports back pain, Reports arthralgias, Reports neck pain, Reports radiating pain into limb and Reports stiffness Physical Exam Vital Signs: Last Vital Signs Pulse 88 04/15/23 13:36 BP 122/88 04/15/23 13:36 Pulse Ox 97 04/15/23 13:36 Oxygen Delivery Method Room Air 04/15/23 13:36 BMI result Body Mass Index 27.1 Const General: cooperative, healthy appearing and comfortable Nutritional Appearance: overweight Orientation/consciousness: patient oriented x3 Limitations: no limitations HEENT Head: Yes normocephalic and Yes atraumatic Mouth: moist mucous membranes Resp Effort & Inspection: normal respiratory effort and able to speak in complete sentences Neuro General: patient oriented x3 Extrem Other: Negative Spurling's test bilaterally Mild bilateral trapezius muscle spasm Osteoarthritic changes of both hands Equivocal Dahlia's test on the left hand Left 1st CMC joint tenderness Assessment & Plan Assessment & Plan (1) Cervicalgia: Code(s): M54.2 - Cervicalgia Plan: This is a 57-year-old female with generalized osteoarthritis who presents for follow-up. Patient has been having neck pain that intermittently radiates to the shoulders. Will order a cervical spine x-ray. Referred patient to physical therapy (2) Osteoarthritis of hands, bilateral: Code(s): M19.041 - Primary osteoarthritis, right hand; M19.042 - Primary osteoarthritis, left hand Qualifiers: Osteoarthritis type: primary Qualified Code(s): M19.041 - Primary osteoarthritis, right hand; M19.042 - Primary osteoarthritis, left hand Plan: Likely OA of 1st CMC joint, left hand. Will check bilateral hand x-rays. Advised patient to take somr-lru-fdedegk Aleve 220 mg twice daily for 1 week then 1 daily for 1 week then use as needed. Follow-up in 2 months. Will consider doing a steroid injection in the left 1st CMC Plan I spent 26 minutes reviewing patient's chart, evaluating patient, ordering diagnostic workup, counseling patient and documenting in the chart Orders: Orders XR hand wrist LT Today M19.041 - Primary osteoarthritis, right hand, M19.042 - Primary osteoarthritis, left hand XR hand wrist RT Today M19.041 - Primary osteoarthritis, right hand, M19.042 - Primary osteoarthritis, left hand XR cervical spine 4V Today M54.2 - Cervicalgia PT Evaluation and Treatment Today M54.2 - Cervicalgia Coding Level of Care Code Est Pt Level 4 (35518) Diagnoses Cervicalgia M54.2 Osteoarthritis of hands, bilateral M19.041; M19.042 Osteoarthritis type: primary
[2023-04-15 13:36] VITALS: BP 122/88; PULSE 88; O2SAT 97; BMI 27.1
== END 2023-04-15 14:12 | disposition home or self-care (01) ==
PROVIDERS: PCP Family Medicine; Visit Provider Student in an Organized Health Care Education/Training Program
DX: M54.2 Cervicalgia (principal); M19.041 Primary osteoarthritis, right hand; M19.042 Primary osteoarthritis, left hand
CPT/HCPCS: 99214

== ENCOUNTER → 2023-04-15 13:33 | Outpatient (BNVA) | payer MEDICAID, SELFPAY | PROVIDERS: PCP Family Medicine; Visit Provider Student in an Organized Health Care Education/Training Program | DX: M54.2 Cervicalgia (principal); M19.041 Primary osteoarthritis, right hand; M19.042 Primary osteoarthritis, left hand | CPT/HCPCS: 99212 ==

== ENCOUNTER 2023-05-12 06:20 | Emergency (ER) | payer MEDICAID, SELFPAY ==
--- NOTE | ~2023-05-12 | XR_ITS ---
EXAMINATION: XR CHEST CLINICAL INFORMATION: Shortness of breath COMPARISON: 03/25/2022 TECHNIQUE: Frontal view of the chest was obtained. FINDINGS: The cardiomediastinal silhouette is stable. There is no focal lung consolidation or pleural effusion. The bony structures and soft tissues are unremarkable. There is mild curvature of the thoracolumbar spine to the right. The bony structures and soft tissues are otherwise unremarkable. XR/XR chest 1V IMPRESSION: No active cardiopulmonary disease.
--- NOTE | 2023-05-12 06:29 | ECG_ITS ---
Test Reason : SOB Blood Pressure : / mmHG Vent. Rate : 086 BPM Atrial Rate : 086 BPM P-R Int : 142 ms QRS Dur : 094 ms QT Int : 424 ms P-R-T Axes : 042 006 058 degrees QTc Int : 507 ms Normal sinus rhythm Nonspecific T wave abnormality Inferior infarct (cited on or before 04-NOV-2021) Prolonged QT Abnormal ECG When compared with ECG of 25-MAR-2022 13:11, Nonspecific T wave abnormality, worse in Anterolateral leads Referred By: Generic ED Physician Electronically Signed By:TAYA CORONA
[2023-05-12 06:31] VITALS: BP 135/78; PULSE 100; RESP 24; TEMP 36.8; O2SAT 97; BMI 26.5
[2023-05-12 06:50] LABS: MANUAL DIFF FLAG NO
[2023-05-12 06:51] LABS: Basophils Absolute Auto 0.1 X10*3/uL (0.0-0.2); Basophils Percent Auto 0.6 % (0-2); Eosinophils Absolute Auto 0.1 X10*3/uL (0.0-0.4); Eosinophils Percent Auto 1.4 % (0-4); Hemoglobin 12.5 g/dl (12.0-16.0); Imm Gran Abs Auto 0.03 X10*3/uL (0.00-0.03); Imm Gran Pct Auto 0.3 % (0.0-0.4); Lymphocytes Absolute Auto 2.3 X10*3/uL (1.2-4.9); Lymphocytes Percent Auto 25.8 % (20-40); Mean Corpuscular HGB Conc 33.8 g/dl (31.0-35.0); Mean Corpuscular Hemoglobin 28.5 pg (27.0-33.0); Mean Corpuscular Volume 84.3 fL (80.0-98.0); Mean Platelet Volume 9.6 fL (9.4-12.3); Monocytes Absolute Auto 0.6 X10*3/uL (0.1-1.2); Monocytes Percent Auto 6.5 % (2-11); Neutrophils Absolute Auto 5.9 x10*3/uL (2.0-8.3); Neutrophils Percent Auto 65.4 % (45-73); Platelet Count 193 X10*3/uL (160-400); Red Blood Count 4.39 X10*6/uL (4.20-5.50); Red Cell Distribution Width 12.8 % (11.0-16.0)
[2023-05-12 07:01] VITALS: BP 107/64; PULSE 81; RESP 21; O2SAT 94
[2023-05-12 07:06] LABS: Anion Gap 14 (12-20); Blood Urea Nitrogen 13 mg/dL (9-16); Carbon Dioxide 22 mmol/L (22-29); Chloride 108 mmol/L (96-108); Creatinine Clr Calc Pharmacy 79.8; Estimated Glomerular Filt Rate > 60; Glucose Random 163 mg/dL (60-115); Potassium 3.1 mmol/L (3.3-5.1); Sodium 141 mmol/L (135-145)
[2023-05-12 07:07] LABS: COVID-19 Test Negative (Negative); IDNOW Serial# 6674DD1D
[2023-05-12 07:17] LABS: Troponin-I High Sensitivity < 2.7 ng/L (<3.5-17.0)
--- NOTE | 2023-05-12 07:18 | ED_ITS ---
HPI - SOB/Dyspnea General Chief Complaint: Dyspnea Stated Complaint: SoB, Asthmatic Time Seen by Provider: 05/12/23 07:10 Source: patient and family Mode of arrival: ambulatory Limitations: no limitations History of Present Illness HPI Narrative: 58-year-old female past medical history of arthritis you to his trochanter bursitis of the right hip asthma Nikki arthralgia presents to the emergency room with 3 days worsening shortness of breath. States she feels like she her chest is tight. She woke up in middle of night around M with a cough. She denies any fevers chills she states she has not been wheezing but feels tight. She is unsure of the last time she was on steroids. She states the last time she used her inhaler was yesterday morning. She denies any other injuries or complaints. Patient has complete speaking full sentences pulse ox is room air and is 100% MD elicited complaint: shortness of breath Related Data Home Medications Medication Instructions Recorded Confirmed cetirizine 10 mg tablet 10 mg PO DAILY 11/30/20 03/26/23 diclofenac sodium 1 % topical gel 2 g topical QID PRN Pain 11/30/20 03/26/23 duloxetine 60 mg capsule,delayed 60 mg PO DAILY 11/30/20 03/26/23 release fluticasone propionate 50 2 spray intranasal DAILY 11/30/20 03/26/23 mcg/actuation nasal spray,suspension lidocaine 5 % topical patch 1 patch topical DAILY 11/30/20 03/26/23 (Lidoderm) melatonin 5 mg tablet 5 - 10 mg PO BEDTIME PRN insomnia 11/30/20 03/26/23 montelukast 10 mg tablet 10 mg PO BEDTIME 11/30/20 03/26/23 omeprazole 20 mg capsule,delayed 20 mg PO BID 11/30/20 03/26/23 release polyethylene glycol 3350 17 17 g PO DAILY 11/30/20 09/10/22 gram/dose oral powder atorvastatin 40 mg tablet 1 tab PO BEDTIME 11/04/21 03/26/23 amitriptyline 50 mg tablet 50 mg PO BEDTIME 03/13/22 03/26/23 buspirone 5 mg tablet 5 mg PO BID 03/13/22 03/26/23 docusate sodium 100 mg capsule 100 mg PO BID 03/13/22 03/26/23 (Colace) topiramate 50 mg tablet 50 mg PO BID 03/13/22 03/26/23 cholecalciferol (vitamin D3) 50 1 cap PO QAM 09/10/22 03/26/23 mcg (2,000 unit) capsule (Vitamin D3) ipratropium bromide 17 2 puff inhalation QID PRN wheezing 09/10/22 03/26/23 mcg/actuation HFA aerosol inhaler (Atrovent HFA) furosemide 20 mg tablet 40 mg PO QAM 04/15/23 Previous Rx's Medication Instructions Recorded albuterol sulfate 2.5 mg/3 mL 2.5 mg (3 mL) inhalation Q4-6H PRN 11/14/21 (0.083 %) solution for nebulization shortness of breath or wheezing #90 mL fluticasone furoate 200 1 ea inhalation DAILY #60 ea 04/03/22 mcg-vilanterol 25 mcg/dose inhalation powder (Breo Ellipta) dupilumab 300 mg/2 mL subcutaneous 300 mg (2 mL) subcut Q2W #4 mL 07/22/22 pen injector ([employer]) gabapentin 300 mg capsule 300 mg PO BEDTIME #90 caps 08/09/22 pyridoxine (vitamin B6) 100 mg 100 mg PO DAILY 90 days #90 tabs 12/27/22 tablet tamsulosin 0.4 mg capsule 0.4 mg PO BEDTIME 30 days #90 caps 12/27/22 umeclidinium 62.5 mcg/actuation 1 inh inhalation DAILY #30 ea 01/10/23 blister powder for inhalation (Incruse Ellipta) benzonatate 100 mg capsule 100 mg PO BID PRN cough #20 caps 05/12/23 prednisone 20 mg tablet 60 mg (3 x 20 mg) PO DAILY Asthma 05/12/23 5 days #15 tabs Allergies Allergy/AdvReac Type Severity Reaction Status Date / Time pollen extracts [POLLEN] Allergy Unknown RUNNY Verified 05/12/23 06:33 NOSE, ITCHY EYES seasonl allergies Allergy Unknown asthma Uncoded 05/12/23 06:33 attacks Review of Systems 2 Review of Systems: Review of systems: General: Patient denies any fever chills recent illness or falls Musculoskeletal: Denies back pain or body aches or other injuries HEENT: denies headache, runny nose, ear pain Respiratory: shortness of breath, cough Cardiovascular: no chest pain or palpitations : denies dysuria, frequency Abdomen: no nausea vomiting denies abdominal pain Extremities: no swelling, no pain Skin: no diaphoresis Yes all other systems are reviewed and are negative PMFSH Past Medical History Medical History Anxiety Arthritis Asthma COVID-19 Depression Migraine headache Surgical History Hx of cholecystectomy Hx of elbow surgery Hx of hysterectomy Social History Social History Household Members: Family Household Members Other:: - [place] Housing: House Do you presently have visiting nurse or other home services: No Alcohol intake: never Patient Tobacco Use Status: Never used Tobacco Second Hand Smoke Exposure: No Advance Directives: No Advance Directives Information Provided: Yes service: No Current occupational status: unemployed and disabled Current occupation: rt handed Physical Exam 2 Vital Signs: Vital Signs: Last Vital Signs Temp 98.3 F 05/12/23 06:31 Pulse 81 05/12/23 07:01 Resp 21 H 05/12/23 07:01 BP 107/64 05/12/23 07:01 Pulse Ox 94 05/12/23 07:01 O2 Del Method Room Air 05/12/23 07:01 BMI result Body Mass Index 26.5 General: Well-appearing well-nourished in no signs of distress HEENT: Normocephalic atraumatic Neck: No signs of JVD, no masses no tenderness or lymphadenopathy Cardiovascular: Regular rate and rhythm Respiratory: Clear to auscultation bilaterally Abdomen: Soft nontender no masses Extremities: Normal pedal pulses no signs of edema Skin: Dry warm no rashes Back: No tenderness full ROM Medical Decision Making Medical Decision Making [facility] Narrative: 88-year-old female with past with history of asthma unsure last time she was on prednisone his only used her inhaler yesterday patient is not wheezing on arrival patient had labs and x-ray which were unremarkable. I will treat the patient with Tessalon Perles and prednisone Differential Diagnosis Differential Diagnoses: The differential diagnosis associated with the presentation includes Asthma exacerbation COPD anemia electrolyte abnormality Admission/Observation Consideration of admission/observation: Escalation of care including admission/observation considered NOt required in this scenario Lab Data [facility] Lab Attestation statement: I reviewed the patient's lab results. 05/12/23 06:45 05/12/23 06:45 Labs: Lab Results 05/12/23 Range/Units 06:45 WBC 9.0 (4.8-10.8) X10*3/uL RBC 4.39 (4.20-5.50) X10*6/uL Hgb 12.5 (12.0-16.0) g/dl Hct 37.0 (37.0-47.0) % MCV 84.3 (80.0-98.0) fL MCH 28.5 (27.0-33.0) pg MCHC 33.8 (31.0-35.0) g/dl RDW 12.8 (11.0-16.0) % Plt Count 193 (160-400) X10*3/uL MPV 9.6 (9.4-12.3) fL Immature Gran % (Auto) 0.3 (0.0-0.4) % Neut % (Auto) 65.4 (45-73) % Lymph % (Auto) 25.8 (20-40) % [place] % (Auto) 6.5 (2-11) % Eos % (Auto) 1.4 (0-4) % Baso % (Auto) 0.6 (0-2) % Lymph # (Auto) 2.3 (1.2-4.9) X10*3/uL [place] # (Auto) 0.6 (0.1-1.2) X10*3/uL Eos # (Auto) 0.1 (0.0-0.4) X10*3/uL Baso # (Auto) 0.1 (0.0-0.2) X10*3/uL Abs Immat Gran (auto) 0.03 (0.00-0.03) X10*3/uL Absolute Neuts (auto) 5.9 (2.0-8.3) x10*3/uL Absolute Nucleated RBC 0.000 (0.0-0.012) X10*3/uL Nucleated RBC % (auto) 0.0 (0.0-0.2) /100WBC Sodium 141 (135-145) mmol/L Potassium 3.1 L (3.3-5.1) mmol/L Chloride 108 (96-108) mmol/L Carbon Dioxide 22 (22-29) mmol/L Anion Gap 14 (12-20) BUN 13 (9-16) mg/dL Creatinine 0.70 (0.5-1.4) mg/dL Estim Creat Clear Calc 79.8 Estimated GFR > 60 Random Glucose 163 H (60-115) mg/dL Calcium 10.0 D (8.4-10.2) mg/dL Troponin I High Sens < 2.7 (<3.5-17.0) ng/L COVID-19 (ALBINO) Negative (Negative) COVID-19 Clin Com See Note Independent Interpretation I performed an independent interpretation of an: Plain X-Ray Interpretation: no acute intrathoracic process Radiology Impression Discussion of test interpretation with radiology: I have reviewed the radiologist's reading. Independent Historian Clinical information obtained from an independent historian. History obtained from or confirmed by: Spouse External Record Review External record reviewed: Office record Prescription Management Prednisone and tessalon perles Chronic Conditions Asthma Social Determinants unknown Core Measures AMI core measures followed: Yes Discharge Plan Discharge Clinical Impression: Asthma Patient Disposition: Home, Self-Care Instructions: Asthma (DC) Additional Instructions: You were seen in the emergency department today for shortness of breath and asthma You had a XR and labs which were all normal. Please take the tessalon perles for your cough. I am also putting you on a short course of prednisone. You can use your inhaler as needed as well. Please return to the ED if you have fever worsening shortness of breath or any other concerns. Prescriptions: New benzonatate 100 mg capsule 100 mg PO BID PRN (Reason: cough) Qty: 20 0RF prednisone 20 mg tablet 60 mg PO DAILY 5 Days Qty: 15 0RF No Action albuterol sulfate 2.5 mg /3 mL (0.083 %) solution for nebulization 2.5 mg inhalation Q4-6H PRN (Reason: shortness of breath or wheezing) Qty: 90 0RF Breo Ellipta 200-25 mcg/dose blister with device 1 ea inhalation DAILY Qty: 60 6RF Dupixent Pen 300 mg/2 mL pen injector 300 mg subcut Q2W Qty: 4 11RF gabapentin 300 mg capsule 300 mg PO BEDTIME Qty: 90 3RF Incruse Ellipta 62.5 mcg/actuation blister with device 1 inh inhalation DAILY Qty: 30 6RF cetirizine 10 mg tablet 10 mg PO DAILY lidocaine [Lidoderm] 5 % adhesive patch,medicated 1 patch topical DAILY Rx Instructions: 12 HOURS ON 12 HOURS OFF omeprazole 20 mg capsule,delayed release(DR/EC) 20 mg PO BID montelukast 10 mg tablet 10 mg PO BEDTIME polyethylene glycol 3350 17 gram/dose powder 17 g PO DAILY fluticasone propionate 50 mcg/actuation spray,suspension 2 spray intranasal DAILY duloxetine 60 mg capsule,delayed release(DR/EC) 60 mg PO DAILY diclofenac sodium 1 % gel 2 g topical QID PRN (Reason: Pain) melatonin 5 mg tablet 5 - 10 mg PO BEDTIME PRN (Reason: insomnia) Atrovent HFA 17 mcg/actuation HFA aerosol inhaler 2 puff INHALATION QID PRN (Reason: wheezing) cholecalciferol (vitamin D3) [Vitamin D3] 50 mcg (2,000 unit) capsule 1 cap PO QAM atorvastatin 40 mg tablet 1 tab PO BEDTIME amitriptyline 50 mg tablet 50 mg PO BEDTIME buspirone 5 mg tablet 5 mg PO BID topiramate 50 mg tablet 50 mg PO BID docusate sodium [Colace] 100 mg capsule 100 mg PO BID pyridoxine (vitamin B6) 100 mg tablet 100 mg PO DAILY 90 Days Qty: 90 1RF tamsulosin 0.4 mg capsule 0.4 mg PO BEDTIME 30 Days Qty: 90 2RF furosemide 20 mg tablet 40 mg PO QAM
[2023-05-12] MEDS: predniSONE 20 MG TABLET 60 MG PO (07:43)
[2023-05-12] MEDS: Benzonatate 100 MG CAPSULE PO (07:43)
== END 2023-05-12 07:53 | disposition home or self-care (01) ==
PROVIDERS: Emergency Provider Student in an Organized Health Care Education/Training Program
DX: J45.909 Unspecified asthma, uncomplicated (principal); R06.02 Shortness of breath; M70.71 Other bursitis of hip, right hip; Z20.822 Contact with and (suspected) exposure to COVID-19; Z20.828 Contact with and (suspected) exposure to other viral communicable diseases; Z79.899 Other long term (current) drug therapy
CPT/HCPCS: 36415; 71045; 80048; 84484; 85025; 87635; 93005; 99284

== ENCOUNTER 2023-05-16 09:47 | Outpatient (REF) | payer MEDICAID, SELFPAY ==
[2023-05-16 12:15] LABS: Alanine Aminotransferase 19 U/L (0-31); Albumin Level 4.3 g/dL (3.5-5.0); Alkaline Phosphatase 109 U/L (39-117); Anion Gap 13 (12-20); Aspartate Amino Transferase 12 U/L (5-31); Bilirubin Total 0.3 mg/dL (0.0-1.0); Blood Urea Nitrogen 11 mg/dL (9-16); Carbon Dioxide 26 mmol/L (22-29); Chloride 106 mmol/L (96-108); Estimated Glomerular Filt Rate > 60; Glucose Random 101 mg/dL (60-115); Sodium 141 mmol/L (135-145); Total Protein 7.7 g/dL (6.5-8.0)
== END 2023-05-16 09:48 | disposition home or self-care (01) ==
LOC: HO.HHCL 09:47
PROVIDERS: Visit Provider Registered Nurse
DX: E87.6 Hypokalemia (principal)
CPT/HCPCS: 36415; 80053

== ENCOUNTER 2023-05-26 05:49 | Emergency (ER) | payer MEDICAID, SELFPAY ==
--- NOTE | ~2023-05-26 | XR_ITS ---
EXAMINATION: XR CHEST CLINICAL INFORMATION: Cough. Shortness of breath. Chest pain. COMPARISON: Multiple priors with the last chest x-ray of 05/12/2023 TECHNIQUE: 2 views of the chest were obtained. FINDINGS: The cardiomediastinal silhouette is stable with normal cardiac size. Reversed S-shaped scoliosis of the thoracic spine is redemonstrated without interval change. The lungs are adequately symmetrically expanded. No focal consolidation, changes of congestion, pleural effusions or pneumothorax are seen. Surgical anchor projecting over the right humeral head is redemonstrated. Postcholecystectomy surgical clips are noted in the right upper abdominal quadrant. XR/XR chest 2V IMPRESSION: No acute pulmonary process. No significant interval change is noted compared to last study.
--- NOTE | 2023-05-26 06:33 | ED.ASTHMA ---
HPI - Asthma General Chief Complaint: Dyspnea Stated Complaint: Asthma/diff breathing Time Seen by Provider: 05/26/23 06:32 Source: patient, RN notes reviewed and old records reviewed Mode of arrival: ambulatory History of Present Illness HPI Narrative: 58-year-old female with a past medical of anxiety, depression, arthritis, asthma, presenting to the ED complaining continue asthma exacerbation with dry cough, substernal and right-sided chest discomfort, and SOB x few weeks. Patient admits she was seen and treated in our ED on 05/12 for similar symptoms, finish course of prednisone without relief. Reports chest pain worse with cough and deep breathing. Denies known fever/chills, recent travel sick contacts, pedal edema. Denies taking anticoagulation MD complaint: shortness of breath Related Data Home Medications Medication Instructions Recorded Confirmed cetirizine 10 mg tablet 10 mg PO DAILY 11/30/20 03/26/23 diclofenac sodium 1 % topical gel 2 g topical QID PRN Pain 11/30/20 03/26/23 duloxetine 60 mg capsule,delayed 60 mg PO DAILY 11/30/20 03/26/23 release fluticasone propionate 50 2 spray intranasal DAILY 11/30/20 03/26/23 mcg/actuation nasal spray,suspension lidocaine 5 % topical patch 1 patch topical DAILY 11/30/20 03/26/23 (Lidoderm) melatonin 5 mg tablet 5 - 10 mg PO BEDTIME PRN insomnia 11/30/20 03/26/23 montelukast 10 mg tablet 10 mg PO BEDTIME 11/30/20 03/26/23 omeprazole 20 mg capsule,delayed 20 mg PO BID 11/30/20 03/26/23 release polyethylene glycol 3350 17 17 g PO DAILY 11/30/20 09/10/22 gram/dose oral powder atorvastatin 40 mg tablet 1 tab PO BEDTIME 11/04/21 03/26/23 amitriptyline 50 mg tablet 50 mg PO BEDTIME 03/13/22 03/26/23 buspirone 5 mg tablet 5 mg PO BID 03/13/22 03/26/23 docusate sodium 100 mg capsule 100 mg PO BID 03/13/22 03/26/23 (Colace) topiramate 50 mg tablet 50 mg PO BID 03/13/22 03/26/23 cholecalciferol (vitamin D3) 50 1 cap PO QAM 09/10/22 03/26/23 mcg (2,000 unit) capsule (Vitamin D3) ipratropium bromide 17 2 puff inhalation QID PRN wheezing 09/10/22 03/26/23 mcg/actuation HFA aerosol inhaler (Atrovent HFA) furosemide 20 mg tablet 40 mg PO QAM 04/15/23 Previous Rx's Medication Instructions Recorded albuterol sulfate 2.5 mg/3 mL 2.5 mg (3 mL) inhalation Q4-6H PRN 11/14/21 (0.083 %) solution for nebulization shortness of breath or wheezing #90 mL fluticasone furoate 200 1 ea inhalation DAILY #60 ea 04/03/22 mcg-vilanterol 25 mcg/dose inhalation powder (Breo Ellipta) dupilumab 300 mg/2 mL subcutaneous 300 mg (2 mL) subcut Q2W #4 mL 07/22/22 pen injector ([employer]) gabapentin 300 mg capsule 300 mg PO BEDTIME #90 caps 08/09/22 pyridoxine (vitamin B6) 100 mg 100 mg PO DAILY 90 days #90 tabs 12/27/22 tablet tamsulosin 0.4 mg capsule 0.4 mg PO BEDTIME 30 days #90 caps 12/27/22 umeclidinium 62.5 mcg/actuation 1 inh inhalation DAILY #30 ea 01/10/23 blister powder for inhalation (Incruse Ellipta) benzonatate 100 mg capsule 100 mg PO BID PRN cough #20 caps 05/12/23 prednisone 20 mg tablet 60 mg (3 x 20 mg) PO DAILY Asthma 05/12/23 5 days #15 tabs Allergies Allergy/AdvReac Type Severity Reaction Status Date / Time pollen extracts [POLLEN] Allergy Unknown RUNNY Verified 05/12/23 06:33 NOSE, ITCHY EYES seasonl allergies Allergy Unknown asthma Uncoded 05/12/23 06:33 attacks Review of Systems Review of Systems: Constitutional: No Fever, No Chills, No Fatigue, No Malaise ENT/Mouth: No Ear Pain, No Nasal Congestion, No sore throat, No Rhinorrhea, No Swallowing Difficulty Eyes: No Eye Pain, No Swelling, No Redness Cardiovascular: +Chest Pain, +SOB, No Dyspnea on Exertion, No Edema, No Palpitations Respiratory: + Cough, No Sputum, + Wheezing, No Smoke Exposure, No Dyspnea Gastrointestinal: No Nausea, No Vomiting, No Diarrhea, No Constipation, No Abdominal pain Genitourinary: No irregular bleeding, No Dysuria, No Hematuria,No Flank Pain Musculoskeletal: No joint pain, No Myalgias, No Joint Swelling Skin: No Skin Lesions, No rash Neuro: No Weakness, No Numbness, No Headache Yes all other systems are reviewed and are negative Constitutional: Constitutional: Reports as per [facility] Past Medical History Attestation statement: The following information was validated with the patient. Source: old records reviewed Medical History COVID-19 Depression Anxiety Migraine headache Arthritis Asthma Surgical History Hx of cholecystectomy Hx of elbow surgery Hx of hysterectomy Social History Social History Household Members: Family Household Members Other:: - [place] Housing: House Do you presently have visiting nurse or other home services: No Alcohol intake: never Patient Tobacco Use Status: Never used Tobacco Second Hand Smoke Exposure: No Advance Directives: No Advance Directives Information Provided: No service: No Current occupational status: unemployed and disabled Current occupation: rt handed Physical Exam Vital Signs: Vital Signs: Last Vital Signs Temp 97.9 F 05/26/23 06:37 Pulse 63 05/26/23 06:52 Resp 16 05/26/23 06:52 BP 115/64 05/26/23 06:37 Pulse Ox 99 05/26/23 06:37 O2 Del Method Room Air 05/26/23 06:37 BMI result Body Mass Index 28.2 Const: General: cooperative, healthy appearing and no acute distress Orientation/consciousness: patient oriented x3 Limitations: no limitations HEENT: Head: Yes normal to inspection and Yes atraumatic Ears: hearing grossly normal bilaterally General nose exam: Normal external nose present Face and sinus: Yes normal facial exam Eyes: General: appearance normal, both eyes and all related structures EOM: EOMs intact bilaterally Neck: Neck: Yes normal visual inspection and Yes no meningeal signs Resp: Effort & Inspection: normal respiratory effort and no respiratory distress Auscultation: clear to auscultation bilaterally and no wheezes Cardio: Rate: regular rate Heart sounds: S1 normal heart sound present and S2 normal heart sound present GI: Inspection: Yes normal to inspection Palpation (GI): Soft to palpation, nontender, no guarding and not rigid Skin: Rashes: no rashes Wounds: no wounds Neuro: General: patient oriented x3, tone normal and no meningeal signs Cranial nerves: Yes CN's II-XII intact bilaterally Gait exam (Neuro): Normal gait present Extrem: General: Yes normal to inspection, Yes no pedal edema and Yes no calf tenderness Course Course Course Narrative: -924-- No leukocytosis. D-dimer negative. Troponin negative. -COVID-19 negative XR chest 2V IMPRESSION: No acute pulmonary process. No significant interval change is noted compared to last study. -929-- on re-evaluation lungs CTA, satting 98% on room air. Results discussed with patient including worrisome signs and symptoms and strict return precautions, and when to return to the emergency department. They verbalized understanding and feel safe for discharge at this time. Medications Administered Discontinued Medications Generic Name Dose Route Start Last Admin Trade Name Franky PRN Reason Stop Dose Admin Albuterol Sulfate 2.5 mg 05/26/23 06:49 05/26/23 06:50 Albuterol Sulfate (0.083%) 2.5 Mg/3 Ml Vial.Neb INHALE 05/26/23 06:50 2.5 mg ONCE ONE Administration Hydrocodone Bit/Homatropine Methylb 5 ml 05/26/23 07:56 05/26/23 08:07 Hydrocodone/Homat 5/1.5/5 Ml 5 Ml Syrup PO 05/26/23 07:57 5 ml ONCE ONE Administration Medical Decision Making Medical Decision Making [facility] Narrative: 58-year-old female with a past medical of anxiety, depression, arthritis, asthma, presenting to the ED complaining continue asthma exacerbation with dry cough, substernal and right-sided chest discomfort, and SOB x few weeks. On exam vital signs stable, NAD, nontoxic, slight end-expiratory wheeze, no pitting edema. Concern for asthma exacerbation vs viral syndrome vs pneumonia/ bronchitis or pulmonary embolism. Lower suspicion for PTX. Unlikely CHF Plan: EKG, labs, CXR, viral testing, DuoNeb Please refer to course for remaining clinical decision making, interpretation of labs/imaging results, and discussions with consultants and/or family members. Differential Diagnosis Differential Diagnoses: The differential diagnosis associated with the presentation includes As above Admission/Observation Consideration of admission/observation: Escalation of care including admission/observation considered Lab Data MDM Lab Attestation statement: I reviewed the patient's lab results. 05/26/23 08:32 05/26/23 07:41 Labs: Lab Results 05/26/23 05/26/23 05/26/23 Range/Units 07:15 07:41 08:32 WBC 9.6 (4.8-10.8) X10*3/uL RBC 4.17 L (4.20-5.50) X10*6/uL Hgb 12.0 (12.0-16.0) g/dl Hct 35.6 L (37.0-47.0) % MCV 85.4 (80.0-98.0) fL MCH 28.8 (27.0-33.0) pg MCHC 33.7 (31.0-35.0) g/dl RDW 13.2 (11.0-16.0) % Plt Count 192 (160-400) X10*3/uL MPV 9.1 L (9.4-12.3) fL Immature Gran % (Auto) 0.2 (0.0-0.4) % Neut % (Auto) 62.2 (45-73) % Lymph % (Auto) 29.8 (20-40) % [place] % (Auto) 5.7 (2-11) % Eos % (Auto) 1.5 (0-4) % Baso % (Auto) 0.6 (0-2) % Lymph # (Auto) 2.9 (1.2-4.9) X10*3/uL [place] # (Auto) 0.6 (0.1-1.2) X10*3/uL Eos # (Auto) 0.1 (0.0-0.4) X10*3/uL Baso # (Auto) 0.1 (0.0-0.2) X10*3/uL Abs Immat Gran (auto) 0.02 (0.00-0.03) X10*3/uL Absolute Neuts (auto) 6.0 (2.0-8.3) x10*3/uL Absolute Nucleated RBC 0.000 (0.0-0.012) X10*3/uL Nucleated RBC % (auto) 0.0 (0.0-0.2) /100WBC D-Dimer High Sensitivty < 150 NG/ML Sodium 142 (135-145) mmol/L Potassium 3.3 (3.3-5.1) mmol/L Chloride 108 (96-108) mmol/L Carbon Dioxide 25 (22-29) mmol/L Anion Gap 12 (12-20) BUN 14 (9-16) mg/dL Creatinine 0.63 (0.5-1.4) mg/dL Estim Creat Clear Calc 91.4 Estimated GFR > 60 Random Glucose 104 (60-115) mg/dL Calcium 9.1 D (8.4-10.2) mg/dL Troponin I High Sens < 2.7 (<3.5-17.0) ng/L COVID-19 (ALBINO) Negative (Negative) COVID-19 Clin Com See Note Independent Interpretation I performed an independent interpretation of an: EKG ( my interpretation EKG normal sinus rhythm at a rate of 70. QRS 88. when compared to prior serial changes of anterior infarct present) Radiology Impression Discussion of test interpretation with radiology: I have reviewed the radiologist's reading. External Record Review External record reviewed: Inpatient record, Office record, Outpatient record, Prior outpatient labs, Prior outpatient radiology, Primary care record and Outside ED record Tests considered The following testing was considered but not selected: As above Prescription Management I considered prescription management with: Antibiotic Chronic Conditions Patient?s care impacted by: Other ( asthma) Discharge Plan Discharge Clinical Impression: Shortness of breath, Chest pain Patient Disposition: Home, Self-Care Instructions: Chest Pain (DC), Shortness of Breath (ED) Additional Instructions: you tested negative for COVID Your blood work and chest x-ray were reassuring Continue home inhalers and admission Please follow-up with your doctor closely as well as Cardiology If symptoms persist or worsen return to emergency departement Prescriptions: No Action albuterol sulfate 2.5 mg /3 mL (0.083 %) solution for nebulization 2.5 mg inhalation Q4-6H PRN (Reason: shortness of breath or wheezing) Qty: 90 0RF Breo Ellipta 200-25 mcg/dose blister with device 1 ea inhalation DAILY Qty: 60 6RF Dupixent Pen 300 mg/2 mL pen injector 300 mg subcut Q2W Qty: 4 11RF gabapentin 300 mg capsule 300 mg PO BEDTIME Qty: 90 3RF Incruse Ellipta 62.5 mcg/actuation blister with device 1 inh inhalation DAILY Qty: 30 6RF cetirizine 10 mg tablet 10 mg PO DAILY lidocaine [Lidoderm] 5 % adhesive patch,medicated 1 patch topical DAILY Rx Instructions: 12 HOURS ON 12 HOURS OFF omeprazole 20 mg capsule,delayed release(DR/EC) 20 mg PO BID montelukast 10 mg tablet 10 mg PO BEDTIME polyethylene glycol 3350 17 gram/dose powder 17 g PO DAILY fluticasone propionate 50 mcg/actuation spray,suspension 2 spray intranasal DAILY duloxetine 60 mg capsule,delayed release(DR/EC) 60 mg PO DAILY diclofenac sodium 1 % gel 2 g topical QID PRN (Reason: Pain) melatonin 5 mg tablet 5 - 10 mg PO BEDTIME PRN (Reason: insomnia) Atrovent HFA 17 mcg/actuation HFA aerosol inhaler 2 puff INHALATION QID PRN (Reason: wheezing) cholecalciferol (vitamin D3) [Vitamin D3] 50 mcg (2,000 unit) capsule 1 cap PO QAM atorvastatin 40 mg tablet 1 tab PO BEDTIME benzonatate 100 mg capsule 100 mg PO BID PRN (Reason: cough) Qty: 20 0RF prednisone 20 mg tablet 60 mg PO DAILY 5 Days Qty: 15 0RF amitriptyline 50 mg tablet 50 mg PO BEDTIME buspirone 5 mg tablet 5 mg PO BID topiramate 50 mg tablet 50 mg PO BID docusate sodium [Colace] 100 mg capsule 100 mg PO BID pyridoxine (vitamin B6) 100 mg tablet 100 mg PO DAILY 90 Days Qty: 90 1RF tamsulosin 0.4 mg capsule 0.4 mg PO BEDTIME 30 Days Qty: 90 2RF furosemide 20 mg tablet 40 mg PO QAM Referrals: [facility] [place] Cardi[facility] Services [Provider Group] Physician,Unknown J [Primary Care Provider] - 3 days
[2023-05-26 06:37] VITALS: BP 115/64; PULSE 74; RESP 18; TEMP 36.6; O2SAT 99; BMI 28.2
--- NOTE | 2023-05-26 06:38 | ECG_ITS ---
Test Reason : SOB Blood Pressure : / mmHG Vent. Rate : 068 BPM Atrial Rate : 068 BPM P-R Int : 128 ms QRS Dur : 084 ms QT Int : 444 ms P-R-T Axes : 046 005 042 degrees QTc Int : 472 ms Normal sinus rhythm Possible Inferior infarct (cited on or before 04-NOV-2021) Cannot rule out Anterior infarct , age undetermined Abnormal ECG When compared with ECG of 12-MAY-2023 06:33, Nonspecific T wave abnormality no longer evident in Inferior leads Nonspecific T wave abnormality no longer evident in Anterolateral leads Referred By: Mar Busch Electronically Signed By:
[2023-05-26] MEDS: Albuterol Sulfate (0.083%) 2.5 MG/3 ML VIAL.NEB INHALE (06:50)
[2023-05-26 06:52] VITALS: PULSE 63; RESP 16; O2SAT 98
[2023-05-26 07:38] LABS: COVID-19 Test Negative (Negative); IDNOW Serial# 6674DD1D
[2023-05-26 07:39] LABS: D Dimer High Sensitivity < 150 NG/ML
[2023-05-26 07:48] LABS: Troponin-I High Sensitivity < 2.7 ng/L (<3.5-17.0)
[2023-05-26 08:07] LABS: Anion Gap 12 (12-20); Blood Urea Nitrogen 14 mg/dL (9-16); Calcium 9.1 mg/dL (8.4-10.2); Carbon Dioxide 25 mmol/L (22-29); Chloride 108 mmol/L (96-108); Creatinine Clr Calc Pharmacy 91.4; Estimated Glomerular Filt Rate > 60; Glucose Random 104 mg/dL (60-115); Potassium 3.3 mmol/L (3.3-5.1); Sodium 142 mmol/L (135-145)
[2023-05-26] MEDS: HYDROcodone/Homat 5/1.5/5 ML 5 ML SYRUP PO (08:07)
[2023-05-26 08:38] LABS: Basophils Absolute Auto 0.1 X10*3/uL (0.0-0.2); Basophils Percent Auto 0.6 % (0-2); Eosinophils Absolute Auto 0.1 X10*3/uL (0.0-0.4); Eosinophils Percent Auto 1.5 % (0-4); Hematocrit 35.6 % (37.0-47.0); Imm Gran Abs Auto 0.02 X10*3/uL (0.00-0.03); Imm Gran Pct Auto 0.2 % (0.0-0.4); Lymphocytes Absolute Auto 2.9 X10*3/uL (1.2-4.9); Lymphocytes Percent Auto 29.8 % (20-40); Mean Corpuscular HGB Conc 33.7 g/dl (31.0-35.0); Mean Corpuscular Hemoglobin 28.8 pg (27.0-33.0); Mean Corpuscular Volume 85.4 fL (80.0-98.0); Mean Platelet Volume 9.1 fL (9.4-12.3); Monocytes Absolute Auto 0.6 X10*3/uL (0.1-1.2); Monocytes Percent Auto 5.7 % (2-11); Neutrophils Percent Auto 62.2 % (45-73); Platelet Count 192 X10*3/uL (160-400); Red Blood Count 4.17 X10*6/uL (4.20-5.50); Red Cell Distribution Width 13.2 % (11.0-16.0); White Blood Count 9.6 X10*3/uL (4.8-10.8)
[2023-05-26 08:51] LABS: MANUAL DIFF FLAG NO
[2023-05-26 09:42] VITALS: BP 125/76; PULSE 78; RESP 17; O2SAT 98
== END 2023-05-26 10:10 | disposition home or self-care (01) ==
PROVIDERS: Physician Assistant; Emergency Provider Emergency Medicine
DX: R07.9 Chest pain, unspecified (principal); R06.02 Shortness of breath; Z20.822 Contact with and (suspected) exposure to COVID-19; J45.909 Unspecified asthma, uncomplicated; Z79.899 Other long term (current) drug therapy
CPT/HCPCS: 71046; 80048; 84484; 85025; 85379; 87635; 93005; 94640; 99284; 99285

== ENCOUNTER 2023-06-04 14:08 | Outpatient (REF) | payer MEDICAID, SELFPAY | END 2023-06-04 14:09 | disposition home or self-care (01) | LOC: HO.US 14:08 | PROVIDERS: PCP Registered Nurse; Visit Provider Nurse Practitioner Family | DX: N20.0 Calculus of kidney (principal); Z87.898 Personal history of other specified conditions | CPT/HCPCS: 76770 ==

== ENCOUNTER 2023-06-08 16:07 | Emergency (ER) | payer MEDICAID, SELFPAY ==
[2023-06-08 17:02] VITALS: BP 109/67; PULSE 85; RESP 18; O2SAT 96; BMI 27.7
--- NOTE | 2023-06-08 17:06 | ED.GENADULT ---
HPI - General Adult General Chief complaint: Chest Pain Stated complaint: Chest pain History of Present Illness HPI narrative: left without being evaluated by ED provider in main ED Related Data Home Medications Medication Instructions Recorded Confirmed cetirizine 10 mg tablet 10 mg PO DAILY 11/30/20 03/26/23 diclofenac sodium 1 % topical gel 2 g topical QID PRN Pain 11/30/20 03/26/23 duloxetine 60 mg capsule,delayed 60 mg PO DAILY 11/30/20 03/26/23 release fluticasone propionate 50 2 spray intranasal DAILY 11/30/20 03/26/23 mcg/actuation nasal spray,suspension lidocaine 5 % topical patch 1 patch topical DAILY 11/30/20 03/26/23 (Lidoderm) melatonin 5 mg tablet 5 - 10 mg PO BEDTIME PRN insomnia 11/30/20 03/26/23 montelukast 10 mg tablet 10 mg PO BEDTIME 11/30/20 03/26/23 omeprazole 20 mg capsule,delayed 20 mg PO BID 11/30/20 03/26/23 release polyethylene glycol 3350 17 17 g PO DAILY 11/30/20 09/10/22 gram/dose oral powder atorvastatin 40 mg tablet 1 tab PO BEDTIME 11/04/21 03/26/23 amitriptyline 50 mg tablet 50 mg PO BEDTIME 03/13/22 03/26/23 buspirone 5 mg tablet 5 mg PO BID 03/13/22 03/26/23 docusate sodium 100 mg capsule 100 mg PO BID 03/13/22 03/26/23 (Colace) topiramate 50 mg tablet 50 mg PO BID 03/13/22 03/26/23 cholecalciferol (vitamin D3) 50 1 cap PO QAM 09/10/22 03/26/23 mcg (2,000 unit) capsule (Vitamin D3) ipratropium bromide 17 2 puff inhalation QID PRN wheezing 09/10/22 03/26/23 mcg/actuation HFA aerosol inhaler (Atrovent HFA) furosemide 20 mg tablet 40 mg PO QAM 04/15/23 Previous Rx's Medication Instructions Recorded albuterol sulfate 2.5 mg/3 mL 2.5 mg (3 mL) inhalation Q4-6H PRN 11/14/21 (0.083 %) solution for nebulization shortness of breath or wheezing #90 mL fluticasone furoate 200 1 ea inhalation DAILY #60 ea 04/03/22 mcg-vilanterol 25 mcg/dose inhalation powder (Breo Ellipta) dupilumab 300 mg/2 mL subcutaneous 300 mg (2 mL) subcut Q2W #4 mL 07/22/22 pen injector (Dupixent) gabapentin 300 mg capsule 300 mg PO BEDTIME #90 caps 08/09/22 pyridoxine (vitamin B6) 100 mg 100 mg PO DAILY 90 days #90 tabs 12/27/22 tablet tamsulosin 0.4 mg capsule 0.4 mg PO BEDTIME 30 days #90 caps 12/27/22 umeclidinium 62.5 mcg/actuation 1 inh inhalation DAILY #30 ea 01/10/23 blister powder for inhalation (Incruse Ellipta) benzonatate 100 mg capsule 100 mg PO BID PRN cough #20 caps 05/12/23 prednisone 20 mg tablet 60 mg (3 x 20 mg) PO DAILY Asthma 05/12/23 5 days #15 tabs Allergies Allergy/AdvReac Type Severity Reaction Status Date / Time pollen extracts [POLLEN] Allergy Unknown RUNNY Verified 05/12/23 06:33 NOSE, ITCHY EYES seasonl allergies Allergy Unknown asthma Uncoded 05/12/23 06:33 attacks PMFSH Past Medical History Medical History COVID-19 Depression Anxiety Migraine headache Arthritis Asthma Surgical History Hx of cholecystectomy Hx of elbow surgery Hx of hysterectomy Social History Social History Household Members: Family Household Members Other:: - [place] Housing: House Do you presently have visiting nurse or other home services: No Alcohol intake: never Patient Tobacco Use Status: Never used Tobacco Second Hand Smoke Exposure: No Advance Directives: No Advance Directives Information Provided: No service: No Current occupational status: unemployed and disabled Current occupation: rt handed Physical Exam ED Vital Signs: Vital Signs - 24 hr 06/08/23 17:02 Pulse Rate 85 Respiratory Rate 18 Blood Pressure 109/67 Pulse Oximetry 96 Oxygen Delivery Method Room Air BMI result Body Mass Index 27.7 Course Course Course Narrative: 58 yold female presents to the ED for one week of chest pain with SOB. Patient will have EkG and labs ordered. Vitals stable. Medical Decision Making Lab Data 06/08/23 17:39 06/08/23 17:39 Labs: Lab Results 06/08/23 Range/Units 17:39 WBC 11.9 H (4.8-10.8) X10*3/uL RBC 4.59 (4.20-5.50) X10*6/uL Hgb 13.3 (12.0-16.0) g/dl Hct 40.1 (37.0-47.0) % MCV 87.4 (80.0-98.0) fL MCH 29.0 (27.0-33.0) pg MCHC 33.2 (31.0-35.0) g/dl RDW 13.2 (11.0-16.0) % Plt Count 240 (160-400) X10*3/uL MPV 9.6 (9.4-12.3) fL Immature Gran % (Auto) 0.8 H (0.0-0.4) % Neut % (Auto) 59.6 (45-73) % Lymph % (Auto) 31.2 (20-40) % Bulloch % (Auto) 5.8 (2-11) % Eos % (Auto) 1.9 (0-4) % Baso % (Auto) 0.7 (0-2) % Lymph # (Auto) 3.7 (1.2-4.9) X10*3/uL Bulloch # (Auto) 0.7 (0.1-1.2) X10*3/uL Eos # (Auto) 0.2 (0.0-0.4) X10*3/uL Baso # (Auto) 0.1 (0.0-0.2) X10*3/uL Abs Immat Gran (auto) 0.10 H (0.00-0.03) X10*3/uL Absolute Neuts (auto) 7.1 (2.0-8.3) x10*3/uL Absolute Nucleated RBC 0.000 (0.0-0.012) X10*3/uL Nucleated RBC % (auto) 0.0 (0.0-0.2) /100WBC PT 10.5 L (11.1-13.3) SEC INR 0.9 (0.9-1.1) APTT 26.3 (26.0-36.4) SEC Sodium 139 (135-145) mmol/L Potassium 3.9 (3.3-5.1) mmol/L Chloride 104 (96-108) mmol/L Carbon Dioxide 23 (22-29) mmol/L Anion Gap 16 (12-20) BUN 13 (9-16) mg/dL Creatinine 0.79 (0.5-1.4) mg/dL Estim Creat Clear Calc 72.3 Estimated GFR > 60 Random Glucose 129 H (60-115) mg/dL Calcium 9.2 (8.4-10.2) mg/dL Total Bilirubin 0.3 (0.0-1.0) mg/dL AST 20 (5-31) U/L ALT 21 (0-31) U/L Alkaline Phosphatase 100 (39-117) U/L Troponin I High Sens < 2.7 (<3.5-17.0) ng/L B-Natriuretic Peptide < 10 (<100) pg/mL Total Protein 7.1 (6.5-8.0) g/dL Albumin 3.9 (3.5-5.0) g/dL Discharge Plan Discharge Clinical Impression: Chest pain Patient Disposition: Left W/O Completing Treatment Prescriptions: No Action albuterol sulfate 2.5 mg /3 mL (0.083 %) solution for nebulization 2.5 mg inhalation Q4-6H PRN (Reason: shortness of breath or wheezing) Qty: 90 0RF Breo Ellipta 200-25 mcg/dose blister with device 1 ea inhalation DAILY Qty: 60 6RF Dupixent Pen 300 mg/2 mL pen injector 300 mg subcut Q2W Qty: 4 11RF gabapentin 300 mg capsule 300 mg PO BEDTIME Qty: 90 3RF Incruse Ellipta 62.5 mcg/actuation blister with device 1 inh inhalation DAILY Qty: 30 6RF cetirizine 10 mg tablet 10 mg PO DAILY lidocaine [Lidoderm] 5 % adhesive patch,medicated 1 patch topical DAILY Rx Instructions: 12 HOURS ON 12 HOURS OFF omeprazole 20 mg capsule,delayed release(DR/EC) 20 mg PO BID montelukast 10 mg tablet 10 mg PO BEDTIME polyethylene glycol 3350 17 gram/dose powder 17 g PO DAILY fluticasone propionate 50 mcg/actuation spray,suspension 2 spray intranasal DAILY duloxetine 60 mg capsule,delayed release(DR/EC) 60 mg PO DAILY diclofenac sodium 1 % gel 2 g topical QID PRN (Reason: Pain) melatonin 5 mg tablet 5 - 10 mg PO BEDTIME PRN (Reason: insomnia) Atrovent HFA 17 mcg/actuation HFA aerosol inhaler 2 puff INHALATION QID PRN (Reason: wheezing) cholecalciferol (vitamin D3) [Vitamin D3] 50 mcg (2,000 unit) capsule 1 cap PO QAM atorvastatin 40 mg tablet 1 tab PO BEDTIME benzonatate 100 mg capsule 100 mg PO BID PRN (Reason: cough) Qty: 20 0RF prednisone 20 mg tablet 60 mg PO DAILY 5 Days Qty: 15 0RF amitriptyline 50 mg tablet 50 mg PO BEDTIME buspirone 5 mg tablet 5 mg PO BID topiramate 50 mg tablet 50 mg PO BID docusate sodium [Colace] 100 mg capsule 100 mg PO BID pyridoxine (vitamin B6) 100 mg tablet 100 mg PO DAILY 90 Days Qty: 90 1RF tamsulosin 0.4 mg capsule 0.4 mg PO BEDTIME 30 Days Qty: 90 2RF furosemide 20 mg tablet 40 mg PO QAM Discharge Date/Time: 06/08/23 23:00
[2023-06-08 18:04] LABS: Alanine Aminotransferase 21 U/L (0-31); Albumin Level 3.9 g/dL (3.5-5.0); Alkaline Phosphatase 100 U/L (39-117); Anion Gap 16 (12-20); Aspartate Amino Transferase 20 U/L (5-31); Bilirubin Total 0.3 mg/dL (0.0-1.0); Blood Urea Nitrogen 13 mg/dL (9-16); Calcium 9.2 mg/dL (8.4-10.2); Carbon Dioxide 23 mmol/L (22-29); Chloride 104 mmol/L (96-108); Creatinine Clr Calc Pharmacy 72.3; Estimated Glomerular Filt Rate > 60; Glucose Random 129 mg/dL (60-115); Potassium 3.9 mmol/L (3.3-5.1); Sodium 139 mmol/L (135-145); Total Protein 7.1 g/dL (6.5-8.0)
--- NOTE | 2023-06-08 22:19 | PC.NURSE ---
licensed home inspector consulted MD regarding ordering a second troponin d/t patient's length of time in the waiting room at this time. Both Mariana and Candy agreed to have a second/repeat trop obtained. RN related the information to EDT in triage and also asked that a new set of vitals be obtained.
== END 2023-06-08 23:00 | disposition left against medical advice (07) ==
PROVIDERS: Physician Assistant; Emergency Provider Emergency Medicine
DX: R07.89 Other chest pain (principal); R06.02 Shortness of breath; Z79.899 Other long term (current) drug therapy
CPT/HCPCS: 36415; 71045; 80053; 83880; 84484; 85025; 85610; 85730; 93005; 99283

== ENCOUNTER 2023-06-10 09:34 | Outpatient (REF) | payer MEDICAID, SELFPAY | END 2023-06-10 09:35 | disposition home or self-care (01) | LOC: HO.HHCX 09:34 | PROVIDERS: Visit Provider Nurse Practitioner Family | DX: R06.00 Dyspnea, unspecified (principal) | CPT/HCPCS: 71046 ==

== ENCOUNTER 2023-06-17 10:48 | Outpatient (REF) | payer MEDICAID, SELFPAY ==
--- NOTE | ~2023-06-17 | XR_ITS ---
EXAMINATION: XR WRIST, LEFT XR HAND, LEFT CLINICAL INFORMATION: Primary osteoarthritis COMPARISON: Forearm from 06/27/2021 TECHNIQUE: PA, lateral, and oblique views of the left wrist and PA, lateral, and oblique views of the left hand FINDINGS: LEFT WRIST: The bones and soft tissues are normal. No fracture. Alignment is anatomic. There is minimal degenerative changes at the first carpometacarpal joint on the left. LEFT HAND: The bones and soft tissues are normal. No fracture. Alignment is anatomic. Joint spaces are maintained. No erosions or soft tissue calcifications. XR/XR hand wrist LT IMPRESSION: Normal left hand and minimal degenerative changes of the first carpometacarpal joint in the left wrist.
--- NOTE | ~2023-06-17 | XR_ITS ---
EXAMINATION: XR CERVICAL SPINE CLINICAL INFORMATION: Cervicalgia COMPARISON: 06/27/2021 TECHNIQUE: 5 views of cervical spine including oblique views FINDINGS: There is straightening of cervical lordosis with stable narrowing and subchondral sclerosis at the level of C5-C6 with marginal spurring and mild narrowing cough neuroforamina bilaterally due to osteophytosis at the level of C5-C6 and C6-C7 on the left and C5-C6 on the right. Soft tissues unremarkable. There is no fracture seen. XR/XR cervical spine 4V IMPRESSION: Degenerative changes at the level of C5-C6 and C6-C7.
--- NOTE | ~2023-06-17 | XR_ITS ---
EXAMINATION: XR WRIST, RIGHT XR HAND, RIGHT CLINICAL INFORMATION: Osteoarthritis COMPARISON: None available. TECHNIQUE: PA, lateral, and oblique views of the right wrist and PA, lateral, and oblique views of the right hand FINDINGS: RIGHT WRIST: The bones and soft tissues are normal. No fracture. Alignment is anatomic. Joint spaces are maintained except of mild narrowing of first carpometacarpal joint and minimal spurring. No erosions or soft tissue calcifications. RIGHT HAND: The bones and soft tissues are normal. No fracture. Alignment is anatomic. Joint spaces are maintained. No erosions or soft tissue calcifications. XR/XR hand wrist RT IMPRESSION: Normal right hand and minimal degenerative changes in the first carpometacarpal joint on the right
== END 2023-06-17 10:49 | disposition home or self-care (01) ==
LOC: HO.XRAY 10:48
PROVIDERS: Visit Provider Student in an Organized Health Care Education/Training Program
DX: M19.041 Primary osteoarthritis, right hand (principal); M19.042 Primary osteoarthritis, left hand; M54.2 Cervicalgia
CPT/HCPCS: 72050; 73110; 73130; 99212

== ENCOUNTER 2023-06-17 10:48 | Outpatient (AMB) | payer MEDICAID, SELFPAY ==
[2023-06-17 10:50] VITALS: BP 122/64; PULSE 102; TEMP 36.7; O2SAT 96; BMI 28.1
--- NOTE | 2023-06-17 10:50 | A.OFFVIS_ITS ---
Intake Vital Signs 06/17/23 10:50 Height 5 ft 2 in Weight 153 lb 10.595 oz BMI 28.1 BP 122/64 Blood Pressure Location Rt brachial Position Sitting Pulse 102 H Pulse Source Pulse Oximeter Temp 98.0 F Temp Source Skin Pulse Oximetry (%) 96 Intake Visit Reasons: OA Intake Note: Pt presents today for follow up and possible injection. She did not do x-rays ordered at last visit. Referred to OT, pt scheduled appt but did not show 05/26/23. Diet Counselor Required: No Accompanied by: Self / Same As Patient Allergies pollen extracts [POLLEN] Allergy (Unknown, Verified 06/17/23 10:54) RUNNY NOSE, ITCHY EYES seasonl allergies Allergy (Unknown, Uncoded 06/17/23 10:54) asthma attacks Medication List - Last Reconciled 06/17/23 by China Levine MD albuterol sulfate 2.5 mg (3 mL) inhalation Q4-6H PRN amitriptyline 50 mg PO BEDTIME atorvastatin 1 tab PO BEDTIME benzonatate 100 mg PO BID PRN buspirone 5 mg PO BID cetirizine 10 mg PO DAILY cholecalciferol (vitamin D3) (Vitamin D3) 1 cap PO QAM diclofenac sodium 1% 2 grams topical QID PRN diltiazem HCl 240 mg PO QAM docusate sodium (Colace) 100 mg PO BID duloxetine 60 mg PO DAILY dupilumab (Dupixent) 300 mg (2 mL) subcut Q2W fluticasone furoate-vilanterol 200-25 mcg/dose (Breo Ellipta) 1 ea inhalation DAILY fluticasone propionate 50 mcg/actuation 2 sprays intranasal DAILY furosemide 40 mg PO QAM gabapentin 300 mg PO BEDTIME ipratropium bromide 17 mcg/actuation (Atrovent HFA) 2 puffs inhalation QID PRN lidocaine 5% (Lidoderm) 1 patch topical DAILY melatonin 5 - 10 mg PO BEDTIME PRN montelukast 10 mg PO BEDTIME omeprazole 20 mg PO BID polyethylene glycol 3350 17 grams PO DAILY prednisone 60 mg (3 x 20 mg) PO DAILY 5 days pyridoxine (vitamin B6) 100 mg PO DAILY 90 days tamsulosin 0.4 mg PO BEDTIME 30 days topiramate 50 mg PO BID umeclidinium 62.5 mcg/actuation (Incruse Ellipta) 1 inh inhalation DAILY HPI HPI Comments History of Present Illness Details 58-year-old female with generalized oste oarthritis returns for follow- up. Patient stated that body called her to schedule PT for the neck and OT for the hands. She states that her hands are feeling better but continues to have the same neck pain. Initial history: This is a 57-year-old female presents for evaluation of generalized osteoarthritis. She was last seen by Laurie Jo 06/2022. Patient states that she has chronic pain everywhere including her neck, elbows, hands. She states that over the last 1-2 weeks she has been having neck pain radiating to her shoulders. She also has been having pain in her left thumb. She takes duloxetine and gabapentin she sometimes applies Voltaren gel on affected areas. [facility] Medical History COVID-19 Depression Anxiety Migraine headache Arthritis Asthma Surgical History Hx of cholecystectomy Hx of elbow surgery Hx of hysterectomy Social History Household Members: Family Household Members Other:: - [place] Housing: House Do you presently have visiting nurse or other home services: No Alcohol intake: never Patient Tobacco Use Status: Never used Tobacco Second Hand Smoke Exposure: No service: No Current occupational status: unemployed and disabled Current occupation: rt handed Review of Systems ENT Reports neck pain Musc Reports arthralgias, Reports neck pain and Reports stiffness Physical Exam Vital Signs: Last Vital Signs Temp 98.0 F 06/17/23 10:50 Pulse 102 H 06/17/23 10:50 BP 122/64 06/17/23 10:50 Pulse Ox 96 06/17/23 10:50 BMI result Body Mass Index 28.1 Const General: cooperative, healthy appearing and comfortable Nutritional Appearance: overweight Orientation/consciousness: patient oriented x3 Limitations: no limitations HEENT Head: Yes normocephalic and Yes atraumatic Mouth: moist mucous membranes Resp Effort & Inspection: normal respiratory effort and able to speak in complete sentences Neuro General: patient oriented x3 Extrem Other: Negative Spurling's test bilaterally Normal range of motion of her neck with some pain when neck flexion to the left Osteoarthritic changes of both hands Left 1st CMC joint tenderness Assessment & Plan Assessment & Plan (1) Cervicalgia: Code(s): M54.2 - Cervicalgia Plan: This is a 58-year-old female with generalized osteoarthritis who presents for follow-up. Patient has been having neck pain that intermittently radiates to the shoulders. Cervical spine x-ray was ordered last visit, not completed yet. Advised patient to get her cervical spine x-ray. Referred patient to PT. advised patient to try using lidocaine patches. (2) Osteoarthritis of hands, bilateral: Code(s): M19.041 - Primary osteoarthritis, right hand; M19.042 - Primary osteoarthritis, left hand Qualifiers: Osteoarthritis type: primary Qualified Code(s): M19.041 - Primary osteoarthritis, right hand; M19.042 - Primary osteoarthritis, left hand Plan: Likely OA of 1st CMC joint, left hand. Will check bilateral hand x-rays. Symptoms self improved on their own compared to last visit. Plan I spent 16 minutes reviewing patient's chart, evaluating patient, ordering diagnostic workup, counseling patient and documenting in the chart Coding Level of Care Code Est Pt Level 3 (27387) Diagnoses Cervicalgia M54.2 Primary osteoarthritis of both hands M19.041; M19.042 Osteoarthritis type: primary
== END 2023-06-17 11:10 | disposition home or self-care (01) ==
PROVIDERS: Visit Provider Student in an Organized Health Care Education/Training Program
DX: M54.2 Cervicalgia (principal); M19.041 Primary osteoarthritis, right hand; M19.042 Primary osteoarthritis, left hand
CPT/HCPCS: 99213

== ENCOUNTER 2023-06-19 08:58 | Outpatient (AMB) | payer MEDICAID, SELFPAY ==
[2023-06-19 09:08] VITALS: BP 122/67; PULSE 75; O2SAT 99; BMI 28.4
--- NOTE | 2023-06-19 09:08 | A.OFFVIS_ITS ---
Intake Vital Signs 06/19/23 09:08 Height 5 ft 2 in Weight 155 lb 6.814 oz BMI 28.4 BP 122/67 Blood Pressure Location Rt brachial Position Sitting Pulse 75 Pulse Source Doppler Pulse Oximetry (%) 99 Oxygen Delivery Method Room Air Intake Visit Reasons: shortness of breath/hosp follow up Allergies pollen extracts [POLLEN] Allergy (Unknown, Verified 06/19/23 09:12) RUNNY NOSE, ITCHY EYES seasonl allergies Allergy (Unknown, Uncoded 06/17/23 10:54) asthma attacks HPI shortness of breath/hosp follow up HPI Details 56-year-old lady, nonsmoker, followed fo r underlying moderate to severe persistent allergic asthma and dyspnea on exertion.? Patient continues on Dupixent, Breo, albuterol MDI, and nebs with good control of her asthma symptoms. Recently she has been experiencing exacerbation of underlying of her congestive heart failure with worsening lower extremity edema, orthopnea, and paroxysmal nocturnal dyspnea. [facility] Medical History COVID-19 Depression Anxiety Migraine headache Arthritis Asthma Surgical History Hx of cholecystectomy Hx of elbow surgery Hx of hysterectomy Social History Household Members: Family Household Members Other:: - [place] Housing: House Do you presently have visiting nurse or other home services: No Alcohol intake: never Patient Tobacco Use Status: Never used Tobacco Second Hand Smoke Exposure: No service: No Current occupational status: unemployed and disabled Current occupation: rt handed Review of Systems Const Denies daytime sleepiness, Denies excessive sweating, Denies fatigue, Denies fever(s), Denies lethargy, Denies malaise, Denies night sweats, Denies snoring and Denies weight loss Eyes Denies blurry vision and Denies itchy eyes ENT Denies nasal congestion, Denies post nasal drip, Denies sinus pain, Denies sinus pressure and Denies other ( Thrush) Card Denies chest pain, Reports pedal edema, Denies dyspnea, Reports dyspnea on exertion, Reports orthopnea and Reports paroxysmal nocturnal dyspnea Resp Denies cough, Denies hemoptysis, Denies excessive phlegm production, Denies dyspnea, Reports dyspnea on exertion, Denies snoring and Denies wheezing GI Denies abdominal pain and Denies heartburn Musc Denies myalgias, Denies arthralgias and Denies joint swelling Skin/Breast Denies rash Neuro Denies memory loss and Denies seizure-like activity Psych Denies abnormal sleep pattern, Denies anxiety and Denies memory loss Endo Denies excessive sweating, Denies fatigue and Denies heat intolerance Tristin/Lymph Denies easy bruising Aller/Immun Denies itchy eyes, Denies seasonal rhinorrhea and Denies wheezing Physical Exam Vital Signs: Last Vital Signs Pulse 75 06/19/23 09:08 BP 122/67 06/19/23 09:08 Pulse Ox 99 06/19/23 09:08 Oxygen Delivery Method Room Air 06/19/23 09:08 BMI result Body Mass Index 28.4 Const General: no acute distress and alert Nutritional Appearance: not obese Orientation/consciousness: Other orientation findings ( oriented) HEENT Head: Yes atraumatic Eyes General: appearance normal, both eyes and all related structures Sclerae: sclerae normal EOM: EOMs intact bilaterally Neck Neck: Yes supple Lymphatic: no lymphadenopathy noted Resp Effort & Inspection: normal respiratory effort and no use of accessory muscles Auscultation: clear to auscultation bilaterally Cardio Rate: regular rate Rhythm: regular rhythm Heart sounds: no gallops, no murmurs and no rubs Skin General skin exam: other ( warm) Extrem General: No clubbing, No cyanosis and Yes edema (1+ bilateral) Assessment & Plan Assessment & Plan (1) Asthma: Code(s): J45.909 - Unspecified asthma, uncomplicated Plan: Well controlled on current regimen of Breo, Dupixent, albuterol MDI/nebs. Continue current regimen. (2) Environmental allergies: Code(s): Z91.09 - Other allergy status, other than to drugs and biological substances Plan: Well controlled on Dupixent. Continue current regimen. (3) Orthopnea: Code(s): R06.01 - Orthopnea Plan: Now with worsening orthopnea, lower extremity edema, and weight gain. Patient has been advised to increase her furosemide to 60 mg daily for the next 5 days. Coding Level of Care Code Est Pt Level 4 (30915) Diagnoses Asthma J45.909 Environmental allergies Z91.09 Orthopnea R06.01
== END 2023-06-19 09:30 | disposition home or self-care (01) ==
PROVIDERS: PCP Registered Nurse; Visit Provider Internal Medicine Pulmonary Disease
DX: J45.909 Unspecified asthma, uncomplicated (principal); Z91.09 Other allergy status, other than to drugs and biological substances; R06.01 Orthopnea
CPT/HCPCS: 99214

== ENCOUNTER → 2023-06-19 08:58 | Outpatient (BNVA) | payer MEDICAID, SELFPAY | PROVIDERS: PCP Registered Nurse; Visit Provider Internal Medicine Pulmonary Disease | DX: J45.909 Unspecified asthma, uncomplicated (principal); R06.01 Orthopnea; Z91.09 Other allergy status, other than to drugs and biological substances | CPT/HCPCS: 99212 ==

== ENCOUNTER 2023-06-27 09:58 | Outpatient (AMB) | payer MEDICAID, SELFPAY ==
--- NOTE | 2023-06-27 09:59 | A.OFFVIS_ITS ---
Intake Intake Visit Reasons: 6m/US(set) Intake Note: Patient is present for 6 month follow up/US (Imaging done 06/04/23) Urology Medications: tamsulosin Blood Thinner: none Urinalysis done/PVR:1 General Internist Required: No Accompanied by: Self / Same As Patient Allergies pollen extracts [POLLEN] Allergy (Unknown, Verified 06/27/23 10:36) RUNNY NOSE, ITCHY EYES seasonl allergies Allergy (Unknown, Uncoded 06/27/23 10:36) asthma attacks Medication List - Last Reconciled 06/27/23 by JENSEN Philippe- albuterol sulfate 2.5 mg (3 mL) inhalation Q4-6H PRN atorvastatin 1 tab PO BEDTIME cholecalciferol (vitamin D3) (Vitamin D3) 1 cap PO QAM diclofenac sodium 1% 2 grams topical QID PRN diltiazem HCl 240 mg PO QAM docusate sodium (Colace) 100 mg PO BID duloxetine 60 mg PO DAILY dupilumab (Dupixent) 300 mg (2 mL) subcut Q2W fluticasone furoate-vilanterol 200-25 mcg/dose (Breo Ellipta) 1 ea inhalation DAILY fluticasone propionate 50 mcg/actuation 2 sprays intranasal DAILY furosemide 40 mg PO QAM gabapentin 300 mg PO BEDTIME ipratropium bromide 17 mcg/actuation (Atrovent HFA) 2 puffs inhalation QID PRN lidocaine 5% (Lidoderm) 1 patch topical DAILY montelukast 10 mg PO BEDTIME omeprazole 20 mg PO BID pyridoxine (vitamin B6) 100 mg PO DAILY 90 days tamsulosin 0.4 mg PO BEDTIME 30 days umeclidinium 62.5 mcg/actuation (Incruse Ellipta) 1 inh inhalation DAILY HPI HPI Comments History of Present Illness Details Alberta is a pleasant since 57-year-old female patient of Dr. Sam. She has a past medical history of anxiety, depression, migraines, arthritis, and asthma. She presents to the office today for a follow up of her nephrolithiasis and renal cysts. In discussion with the patient today she reports to be doing and feeling well. Recent renal imaging results reviewed with the patient today. Right kidney with no calculi or hydronephrosis. At the upper pole, a 1.1 cm benign, simple cyst is seen, for which no imaging follow-up is recommended per radiology report. Left kidney with no calculi, lesions, and or hydronephrosis. 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 The bladder is well distended and normal. Bilateral ureteral jets are demonstrated. Pre void bladder volume is approximately 180 mL. There is no postvoid residual. Unremarkable examination. When asked she denies urinary urgency, urinary frequency, incontinence, nocturia, hematuria, dysuria, foul smelling urine, changes to urinary stream, flank pain, fever, and or chills. She does however report flomax to help her with her urinary hesitancy. In office urinalysis within normal limits. PVR 1ml's. When asked patient reports to be drinking adequate amount of fluid daily. Discussed surveillance monitoring as well as importance of continuing to drink adequate amount of fluid daily. PFSH Medical History COVID-19 Depression Anxiety Migraine headache Arthritis Asthma Surgical History Hx of cholecystectomy Hx of elbow surgery Hx of hysterectomy Social History Household Members: Family Household Members Other:: - [place] Housing: House Do you presently have visiting nurse or other home services: No Alcohol intake: never Patient Tobacco Use Status: Never used Tobacco Second Hand Smoke Exposure: No service: No Current occupational status: unemployed and disabled Current occupation: rt handed Review of Systems Const Reports as per HPI Eyes Reports no additional complaints ENT Reports no additional complaints Card Reports no additional complaints Resp Reports as per HPI GI Reports no additional complaints Reports as per HPI Musc Reports as per HPI Neuro Reports as per HPI Psych Reports as per HPI Endo Reports no additional complaints Tristin/Lymph Reports no additional complaints Aller/Immun Reports no additional complaints Physical Exam Const General: cooperative, healthy appearing, comfortable, no acute distress, well developed, alert and awake Orientation/consciousness: patient oriented x3 Limitations: no limitations HEENT Head: Yes normal to inspection, Yes normocephalic and Yes atraumatic Ears: hearing grossly normal bilaterally Eyes General: appearance normal, both eyes and all related structures Neck Neck: Yes normal visual inspection and Yes trachea midline Chest Chest palpation & inspection: normal inspection of the chest Resp Effort & Inspection: normal respiratory effort and able to speak in complete sentences Cardio Rate: regular rate GI Inspection: Yes normal to inspection General: Yes no CVA tenderness Back/Spine/Pelvis Back: no CVA tenderness Skin General skin exam: no rashes or lesions noted Neuro General: patient oriented x3 Extrem General: Yes normal to inspection Psych Appearance: grossly normal and well kempt Mental Status: mental status grossly normal Speech and movement: Normal speech and movement present and Clear speech present Affect: normal affect Attitude: cooperative Thought process: Normal thought process present Thought content: Normal thought content present Insight: Fair insight present (Psych) Judgement: Fair judgement present (Psych) Office Procedures Post Void Residual Post Residual Void Post Void Residual (PVR): 1 39556-Misc Void Residual by ultrasound Results AMB Urinalysis, Automated UA Leukoctes 0 Gerber/uL Last Edit by Cande Roche MA on 06/27/23 10:19 UA Nitrite Negative Last Edit by Cande Roche MA on 06/27/23 10:19 UA Urobilinogen 1 mg/dL Last Edit by Cande Roche MA on 06/27/23 10:19 UA Protein 15 mg/dL Last Edit by Cande Roche MA on 06/27/23 10:19 UA pH 6.0 Last Edit by Cande Roche MA on 06/27/23 10:19 UA Blood 0 Guero/uL Last Edit by Cande Roche MA on 06/27/23 10:19 UA Specific [place] 1.020 Last Edit by Cande Roche MA on 06/27/23 10:19 UA Ketone Negative Last Edit by Cande Roche MA on 06/27/23 10:19 UA Bilirubin 1 mg/dL Last Edit by Cande Roche MA on 06/27/23 10:19 UA Glucose 0 mg/dL Last Edit by Cande Roche MA on 06/27/23 10:19 Results Reviewed Results Reviewed: Laboratory Last Values Urine pH (Auto) 6.0 06/27/23 10:04 Specific [place] (Auto) 1.020 06/27/23 10:04 Urine Protein (Auto) 15 mg/dL 06/27/23 10:04 Glucose (UA)(Auto) 0 mg/dL 06/27/23 10:04 Urine Ketones (Auto) Negative 06/27/23 10:04 Urine Blood (Auto) 0 Guero/uL 06/27/23 10:04 Urine Nitrite (Auto) Negative 06/27/23 10:04 Urine Bilirubin (Auto) 1 mg/dL 06/27/23 10:04 Urine Urobilinogen (Auto) 1 mg/dL 06/27/23 10:04 Leukocyte Esterase (Auto) 0 Gerber/uL 06/27/23 10:04 Date of Service: 06/04/23 EXAMINATION: US RETROPERITONEAL COMPLETE (RENAL) FINDINGS: RIGHT KIDNEY: 10.7 x 3.7 x 4.7 cm (SAG x AP x TRV). The kidney is normal in size, contour, and echogenicity. Renal cortical thickness is normal. No renal calculi or hydronephrosis. At the upper pole, a 1.1 cm benign, simple cyst is seen, for which no imaging follow-up is recommended. LEFT KIDNEY: 12.0 x 6.1 x 5.7 cm (SAG x AP x TRV). The kidney is normal in size, contour, and echogenicity. Renal cortical thickness is normal. No calculi or focal parenchymal lesions. No hydronephrosis. 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 BLADDER: Well distended and normal. Bilateral ureteral jets are demonstrated. Prevoid bladder volume is 182 mL. There is no postvoid residual. IMPRESSION: Unremarkable examination. Assessment & Plan Assessment & Plan (1) Renal cyst: Code(s): N28.1 - Cyst of kidney, acquired (2) History of urinary hesitancy: Code(s): Z87.898 - Personal history of other specified conditions Plan In office urinalysis results reviewed with the patient today; as noted above. PVR 1 mL. Continue Flomax as discussed and prescribed. Continue vitamin B6 as discussed and prescribed. Recent renal ultrasound results reviewed with the patient today; as noted above. Patient denies any bothersome urinary issues or concerns at this time. Patient reports be happy with current voiding parameters on 0.4 mg of Flomax daily; will continue Continue drinking plenty of water daily. Continue adding 1 oz of lemon juice to water daily. Renal ultrasound in 6 months. Follow-up in 6 months with imaging to be completed prior; or sooner with any issues, concerns, and or questions. Orders: Orders AMB Post Void Residual by ultrasound 06/27/23 Z87.898 - Personal history of other specified conditions AMB Urinalysis Automated 06/27/23 Z13.9 - Encounter for screening, unspecified US renal BI 6 Months N20.0 - Calculus of kidney, N28.1 - Cyst of kidney, acquired Patient Instructions: The patient had an opportunity to ask questions regarding the treatment plan. All questions were answered. Physical exam, labs, and imaging were discussed and reviewed in detail. As well as risks, benefits, and discussion of treatment choices. No major barriers to understanding were identified. The patient expressed understanding and agreement with the above treatment plan. The patient was made aware they should contact our office by phone for worsening of their current condition, the appearance of new symptoms, or with any questions or concerns. Compliance is encouraged with any medications and follow up testing that is ordered. It is a privilege to be allowed the opportunity to participate in? your urological care.? Again, if you have any questions or concerns If you have any questions or concerns please do not hesitate to contact me. The office is [phone]. This note is constructed using voice recognition software. While every effort has been made to ensure accuracy [employer] social [employer] teacher errors may have been included. Yours sincerely, ANN MARIE Philippe Coding Level of Care Code Est Pt Level 3 (82454) Diagnoses Renal cyst N28.1 History of urinary hesitancy Z87.898 CPT Codes Post Residual Void - PVR CPT Code: 97945-Xsbr Void Residual by ultrasound ([id number])
== END 2023-06-27 10:36 | disposition home or self-care (01) ==
PROVIDERS: Visit Provider Nurse Practitioner Family
DX: N28.1 Cyst of kidney, acquired (principal); Z87.898 Personal history of other specified conditions
CPT/HCPCS: 99213

== ENCOUNTER → 2023-06-27 09:58 | Outpatient (BNVA) | payer MEDICAID, SELFPAY | PROVIDERS: Visit Provider Nurse Practitioner Family | DX: N28.1 Cyst of kidney, acquired (principal); Z87.898 Personal history of other specified conditions; Z79.899 Other long term (current) drug therapy | CPT/HCPCS: 51798; 81003; 99212 ==

== ENCOUNTER 2023-09-18 10:20 | Outpatient (AMB) | payer MEDICAID, SELFPAY ==
[2023-09-18 10:33] VITALS: BP 119/66; PULSE 72; O2SAT 97; BMI 27.4
--- NOTE | 2023-09-18 10:33 | A.OFFVIS_ITS ---
Intake Vital Signs 09/18/23 10:33 Height 5 ft 2 in Weight 149 lb 14.629 oz BMI 27.4 BP 119/66 Blood Pressure Location Rt brachial Position Sitting Pulse 72 Pulse Source Doppler Pulse Oximetry (%) 97 Oxygen Delivery Method Room Air Intake Visit Reasons: Asthma, dupixent? Allergies pollen extracts [POLLEN] Allergy (Unknown, Verified 09/18/23 10:38) RUNNY NOSE, ITCHY EYES seasonl allergies Allergy (Unknown, Uncoded 06/27/23 10:36) asthma attacks HPI Asthma, dupixent? HPI Details 58-year-old lady, nonsmoker, followed fo r underlying moderate to severe persistent allergic asthma and dyspnea on exertion.? Patient has been on Dupixent, Breo, albuterol MDI, and nebs with good control of her asthma symptoms. However, after the most recent Dupixent injection patient developed urticarial rash over both of her arms and upper chest. She was started on prednisone by her primary care provider. She denies recent asthma exacerbations. [facility] Medical History COVID-19 Depression Anxiety Migraine headache Arthritis Asthma Surgical History Hx of cholecystectomy Hx of elbow surgery Hx of hysterectomy Social History Household Members: Family Household Members Other:: - [place] Housing: House Do you presently have visiting nurse or other home services: No Alcohol intake: never Patient Tobacco Use Status: Never used Tobacco Second Hand Smoke Exposure: No service: No Current occupational status: unemployed and disabled Current occupation: rt handed Review of Systems Const Denies daytime sleepiness, Denies excessive sweating, Denies fatigue, Denies fever(s), Denies lethargy, Denies malaise, Denies night sweats, Denies snoring and Denies weight loss Eyes Denies blurry vision and Denies itchy eyes ENT Denies nasal congestion, Denies post nasal drip, Denies sinus pain, Denies sinus pressure and Denies other ( Thrush) Card Denies chest pain, Denies pedal edema, Denies dyspnea, Denies orthopnea and Denies paroxysmal nocturnal dyspnea Resp Denies cough, Denies hemoptysis, Denies excessive phlegm production, Denies dyspnea, Denies snoring and Denies wheezing GI Denies abdominal pain and Denies heartburn Musc Denies myalgias, Denies arthralgias and Denies joint swelling Skin/Breast Reports rash Neuro Denies memory loss and Denies seizure-like activity Psych Denies abnormal sleep pattern, Denies anxiety and Denies memory loss Endo Denies excessive sweating, Denies fatigue and Denies heat intolerance Tristin/Lymph Denies easy bruising Aller/Immun Denies itchy eyes, Denies seasonal rhinorrhea and Denies wheezing Physical Exam Vital Signs: Last Vital Signs Pulse 72 09/18/23 10:33 BP 119/66 09/18/23 10:33 Pulse Ox 97 09/18/23 10:33 Oxygen Delivery Method Room Air 09/18/23 10:33 BMI result Body Mass Index 27.4 Const General: no acute distress and alert Nutritional Appearance: not obese Orientation/consciousness: Other orientation findings ( oriented) HEENT Head: Yes atraumatic Eyes General: appearance normal, both eyes and all related structures Sclerae: sclerae normal EOM: EOMs intact bilaterally Neck Neck: Yes supple Lymphatic: no lymphadenopathy noted Resp Effort & Inspection: normal respiratory effort and no use of accessory muscles Auscultation: clear to auscultation bilaterally Cardio Rate: regular rate Rhythm: regular rhythm Heart sounds: no gallops, no murmurs and no rubs Skin General skin exam: other (Macular reddish rash over bilateral arms and upper chest) Extrem General: No clubbing, No cyanosis and No edema Assessment & Plan Assessment & Plan (1) Asthma: Code(s): J45.909 - Unspecified asthma, uncomplicated Plan: Previously well controlled on Dupixent, Breo, and albuterol MDI. Will pause Dupixent and reassess symptoms in 1 month secondary to development of rash post injection. Continue Breo and albuterol MDI. (2) Environmental allergies: Code(s): Z91.09 - Other allergy status, other than to drugs and biological substances Plan: Dupixent now on hold after development of rash to reassess symptoms in 1 months. Continue Singulair and Flonase. (3) Rash: Code(s): R21 - Rash and other nonspecific skin eruption Plan: Unclear whether related to Dupixent or not. Started on p.o. prednisone by primary care. Will reassess symptoms in 1 months. Coding Level of Care Code Est Pt Level 4 (03336) Diagnoses Asthma J45.909 Environmental allergies Z91.09 Rash R21
== END 2023-09-18 10:47 | disposition home or self-care (01) ==
PROVIDERS: PCP Registered Nurse; Referring Provider Registered Nurse; Visit Provider Internal Medicine Pulmonary Disease
DX: J45.909 Unspecified asthma, uncomplicated (principal); Z91.09 Other allergy status, other than to drugs and biological substances; R21 Rash and other nonspecific skin eruption
CPT/HCPCS: 99214

== ENCOUNTER → 2023-09-18 10:20 | Outpatient (BNVA) | payer MEDICAID, SELFPAY | PROVIDERS: PCP Registered Nurse; Visit Provider Internal Medicine Pulmonary Disease | DX: J45.50 Severe persistent asthma, uncomplicated (principal); R21 Rash and other nonspecific skin eruption; Z91.09 Other allergy status, other than to drugs and biological substances | CPT/HCPCS: 99212 ==

== ENCOUNTER 2023-10-03 09:20 | Emergency (ER) | payer OTHER, MEDICAID, SELFPAY ==
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
[2023-10-03 09:32] VITALS: BP 121/78; BP 150/80; PULSE 80; RESP 18; TEMP 36.7; O2SAT 100; O2SAT 98; BMI 27.8
[2023-10-03] MEDS: Acetaminophen 325 MG TABLET 975 MG PO (10:47)
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
[2023-10-03 11:21] VITALS: BP 124/76; PULSE 71; RESP 17; TEMP 36.7; O2SAT 98
[2023-10-03] MEDS: Cyclobenzaprine HCl 5 MG TABLET PO (15:17)
[2023-10-03] MEDS: Ketorolac Tromethamine 30 MG/ML VIAL IM (15:17)
[2023-10-03 15:19] VITALS: BP 136/74; PULSE 71; RESP 16; TEMP 36.6; O2SAT 98
== END 2023-10-03 16:23 | disposition home or self-care (01) ==
PROVIDERS: Emergency Provider Emergency Medicine Emergency Medical Services
DX: S39.92XA Unspecified injury of lower back, initial encounter (principal); S29.9XXA Unspecified injury of thorax, initial encounter; M54.2 Cervicalgia; R51.9 Headache, unspecified; M54.6 Pain in thoracic spine; V43.62XA Car passenger injured in collision with other type car in traffic accident, initial encounter; Y93.9 Activity, unspecified; Y92.410 Unspecified street and highway as the place of occurrence of the external cause; Y99.8 Other external cause status; Z79.899 Other long term (current) drug therapy
CPT/HCPCS: 70450; 72072; 72100; 72125; 96372; 99284; J1885

== ENCOUNTER 2024-01-02 12:23 | Outpatient (REF) | payer MEDICAID, SELFPAY ==
--- NOTE | ~2024-01-02 | US_ITS ---
EXAMINATION: US RETROPERITONEAL LIMITED (RENAL ONLY) CLINICAL INFORMATION: Calculus of kidney. COMPARISON: Ultrasound retroperitoneal 06/04/2023. Ultrasound renal 09/10/2022. CT urogram 12/24/2021. TECHNIQUE: Real-time imaging of the kidneys. Limited visualization due to bowel gas. FINDINGS: RIGHT KIDNEY: 11.0 x 3.7 x 5.4 cm (SAG x AP x TRV). Redemonstration of 0.8 cm right upper pole cyst with benign features. There is no indication for follow-up imaging. Renal cortical thickness is normal. No renal calculi or hydronephrosis. LEFT KIDNEY: 11.2 x 5.3 x 5.6 cm (SAG x AP x TRV). No hydronephrosis. No renal calculi. Renal cortical thickness is normal. Limited visualization. US/US renal BI IMPRESSION: No hydronephrosis. No renal calculi.
== END 2024-01-02 12:24 | disposition home or self-care (01) ==
LOC: HO.US 12:23
PROVIDERS: PCP Internal Medicine; Visit Provider Nurse Practitioner Family
DX: N20.0 Calculus of kidney (principal); N28.1 Cyst of kidney, acquired
CPT/HCPCS: 76775

== ENCOUNTER 2024-01-07 10:05 | Outpatient (AMB) | payer MEDICAID, SELFPAY ==
--- NOTE | 2024-01-07 10:11 | A.OFFVIS_ITS ---
Vital Signs 01/07/24 10:12 Height 5 ft 2 in BP 124/72 Blood Pressure Location Lt brachial Position Sitting Pulse 92 Pulse Source Pulse Oximeter Pulse Oximetry (%) 97 Oxygen Delivery Method Room Air Intake Visit Reasons: asthma Allergies pollen extracts [POLLEN] Allergy (Unknown, Verified 01/07/24 10:15) RUNNY NOSE, ITCHY EYES seasonl allergies Allergy (Unknown, Uncoded 01/07/24 10:15) asthma attacks Medication List - Last Reconciled 01/07/24 by Louise Vasques, FITNESS PLAN COORDINATOR albuterol sulfate 2.5 mg (3 mL) inhalation Q4-6H PRN atorvastatin 1 tab PO BEDTIME cholecalciferol (vitamin D3) (Vitamin D3) 1 cap PO QAM cyclobenzaprine 10 mg PO BEDTIME PRN 7 days diclofenac sodium 1% 2 grams topical QID PRN diltiazem HCl CD 240 mg PO QAM docusate sodium (Colace) 100 mg PO BID duloxetine 60 mg PO DAILY dupilumab (Dupixent) 300 mg (2 mL) subcut Q2W fluticasone furoate-vilanterol 200-25 mcg/dose (Breo Ellipta) 1 ea inhalation DAILY fluticasone propionate 50 mcg/actuation 2 sprays intranasal DAILY furosemide 40 mg PO QAM gabapentin 300 mg PO BEDTIME ipratropium bromide 17 mcg/actuation (Atrovent HFA) 2 puffs inhalation QID PRN lidocaine 5% (Lidoderm) 1 patch topical DAILY montelukast 10 mg PO BEDTIME naproxen 500 mg PO BID PRN 7 days omeprazole 20 mg PO BID pyridoxine (vitamin B6) 100 mg PO DAILY 90 days tamsulosin 0.4 mg PO BEDTIME 30 days umeclidinium 62.5 mcg/actuation (Incruse Ellipta) 1 inh inhalation DAILY HPI HPI asthma: Details: 58-year-old lady, nonsmoker, followed for underlying moderate to severe persistent allergic asthma and dyspnea on exertion.? Patient has been on Dupixent, Breo, albuterol MDI, and nebs with good control of her asthma symptoms. However, after the most recent Dupixent injection patient developed urticarial rash over both of her arms and upper chest. Her rash resolved off Dupixent, however her asthma is not as well controlled at this time. [facility] Medical History COVID-19 Depression Anxiety Migraine headache Arthritis Asthma Surgical History Hx of cholecystectomy Hx of elbow surgery Hx of hysterectomy Social History Household Members: Family Household Members Other:: - [place] Housing: House Do you presently have visiting nurse or other home services: No Alcohol intake: never Patient Tobacco Use Status: Never used Tobacco Second Hand Smoke Exposure: No Advance Directives Date on File: 09/10/22 service: No Current occupational status: unemployed and disabled Current occupation: rt handed Review of Systems Const Denies daytime sleepiness, Denies excessive sweating, Denies fatigue, Denies fever(s), Denies lethargy, Denies malaise, Denies night sweats, Denies snoring and Denies weight loss Eyes Denies blurry vision and Denies itchy eyes ENT Denies nasal congestion, Denies post nasal drip, Denies sinus pain, Denies sinus pressure and Denies other ( Thrush) Card Denies chest pain, Denies pedal edema, Denies dyspnea, Denies orthopnea and Denies paroxysmal nocturnal dyspnea Resp Denies cough, Denies hemoptysis, Denies excessive phlegm production, Denies dyspnea, Denies snoring and Denies wheezing GI Denies abdominal pain and Denies heartburn Musc Denies myalgias, Denies arthralgias and Denies joint swelling Skin/Breast Denies rash Neuro Denies memory loss and Denies seizure-like activity Psych Denies abnormal sleep pattern, Denies anxiety and Denies memory loss Endo Denies excessive sweating, Denies fatigue and Denies heat intolerance Tristin/Lymph Denies easy bruising Aller/Immun Denies itchy eyes, Denies seasonal rhinorrhea and Denies wheezing Physical Exam Vital Signs: Last Vital Signs Pulse 92 01/07/24 10:12 BP 124/72 01/07/24 10:12 Pulse Ox 97 01/07/24 10:12 Oxygen Delivery Method Room Air 01/07/24 10:12 Const General: no acute distress and alert Nutritional Appearance: not obese Orientation/consciousness: Other orientation findings ( oriented) HEENT Head: Yes atraumatic Eyes General: appearance normal, both eyes and all related structures Sclerae: sclerae normal EOM: EOMs intact bilaterally Neck Neck: Yes supple Lymphatic: no lymphadenopathy noted Resp Effort & Inspection: normal respiratory effort and no use of accessory muscles Auscultation: clear to auscultation bilaterally Cardio Rate: regular rate Rhythm: regular rhythm Heart sounds: no gallops, no murmurs and no rubs Skin General skin exam: other ( warm) Extrem General: No clubbing, No cyanosis and No edema Assessment & Plan Assessment & Plan (1) Severe persistent asthma: Code(s): J45.50 - Severe persistent asthma, uncomplicated Category: Medical Plan: Previously well controlled on Dupixent, however had an allergic reaction. Now off Dupixent and on Breo/albuterol MDI/nebs with suboptimal control of his symptoms. Will try on Tezspire. (2) Environmental allergies: Code(s): Z91.09 - Other allergy status, other than to drugs and biological substances Category: Medical Plan: Suboptimal control off Dupixent, will try on Tezspire. Continue Singulair. Coding Level of Care Code Est Pt Level 4 (16980) Diagnoses Severe persistent asthma J45.50 Environmental allergies Z91.09
[2024-01-07 10:12] VITALS: BP 124/72; PULSE 92; O2SAT 97
== END 2024-01-07 10:20 | disposition home or self-care (01) ==
PROVIDERS: PCP Registered Nurse; Visit Provider Internal Medicine Pulmonary Disease
DX: J45.50 Severe persistent asthma, uncomplicated (principal); Z91.09 Other allergy status, other than to drugs and biological substances
CPT/HCPCS: 99214

== ENCOUNTER → 2024-01-07 10:05 | Outpatient (BNVA) | payer OTHER, MEDICAID, SELFPAY | PROVIDERS: PCP Registered Nurse; Visit Provider Internal Medicine Pulmonary Disease | DX: J45.50 Severe persistent asthma, uncomplicated (principal); Z91.09 Other allergy status, other than to drugs and biological substances; Z79.899 Other long term (current) drug therapy | CPT/HCPCS: 99212 ==

== ENCOUNTER 2024-01-29 11:25 | Outpatient (REF) | payer MEDICAID, SELFPAY | END 2024-01-29 11:26 | disposition home or self-care (01) | LOC: HO.LNP 11:25 | PROVIDERS: Visit Provider Emergency Medicine | DX: K21.9 Gastro-esophageal reflux disease without esophagitis (principal) | CPT/HCPCS: 87338 ==

== ENCOUNTER 2024-02-16 09:16 | Outpatient (REF) | payer MEDICAID, SELFPAY ==
[2024-02-16 14:37] LABS: CDiff Gene PCR NEGATIVE (Negative)
[2024-02-16 15:34] LABS: Adenovirus F 40/41 Not Detected (Not Detect.); Astrovirus Not Detected (Not Detect.); Campylobacter Not Detected (Not Detect.); Cryptosporidium Not Detected (Not Detect.); Cyclospora cayetanensis Not Detected (Not Detect.); E. coli EAEC Not Detected (Not Detect.); E. coli EPEC Not Detected (Not Detect.); E. coli ETEC Not Detected (Not Detect.); E. coli STEC Not Detected (Not Detect.); Entamoeba histolytica Not Detected (Not Detect.); Giardia lamblia Not Detected (Not Detect.); Norovirus GI/GII Not Detected (Not Detect.); Plesiomonas shigelloides Not Detected (Not Detect.); Rotavirus A Not Detected (Not Detect.); Salmonella Not Detected (Not Detect.); Sapovirus Not Detected (Not Detect.); Shigella sp./EIEC Not Detected (Not Detect.); Vibrio Not Detected (Not Detect.); Vibrio Cholerae Not Detected (Not Detect.); Yersinia enterocolitica Not Detected (Not Detect.)
== END 2024-02-16 09:17 | disposition home or self-care (01) ==
LOC: HO.HHCL 09:16
PROVIDERS: Visit Provider Emergency Medicine
DX: K21.9 Gastro-esophageal reflux disease without esophagitis (principal); A04.8 Other specified bacterial intestinal infections
CPT/HCPCS: 87338; 87493; 87507

== ENCOUNTER 2024-03-02 10:12 | Emergency (ER) | payer MEDICAID, SELFPAY ==
--- NOTE | ~2024-03-02 | XR_ITS ---
EXAMINATION: XR CHEST 2 VIEW CLINICAL INFORMATION: Chest pain, shortness of breath COMPARISON: 06/10/2023 TECHNIQUE: PA and lateral views of the chest obtained. FINDINGS: The lungs are clear. There are no pleural effusions. The cardiomediastinal silhouette is unremarkable. Thoracolumbar scoliosis is again evident. Right upper quadrant surgical clips are likely post cholecystectomy. XR/XR chest 2V IMPRESSION: No acute cardiopulmonary disease.
[2024-03-02 10:16] VITALS: BP 105/66; PULSE 72; RESP 16; TEMP 36.6; O2SAT 98; BMI 23.6
--- NOTE | 2024-03-02 10:58 | ECG_ITS ---
Test Reason : asthma Blood Pressure : / mmHG Vent. Rate : 057 BPM Atrial Rate : 057 BPM P-R Int : 150 ms QRS Dur : 088 ms QT Int : 444 ms P-R-T Axes : 029 001 042 degrees QTc Int : 432 ms Sinus bradycardia Cannot rule out Anterior infarct (cited on or before 17-MAY-2021) Abnormal ECG When compared with ECG of 08-JUN-2023 16:14, Vent. rate has decreased BY 29 BPM Referred By: Mahnaz Reyna Electronically Signed By:TRUDY BURROWS
--- NOTE | 2024-03-02 11:00 | ED.ASTHMA ---
HPI - Asthma General Chief Complaint: Asthma Stated Complaint: Diff breathing Time Seen by Provider: 03/02/24 10:24 Source: patient and RN notes reviewed Mode of arrival: ambulatory Limitations: no limitations History of Present Illness ED Provider: Mahnaz Reyna PA-C HPI Narrative: This is a 58-year-old female, with a history of asthma, who presents emergency department with complaints of cough, shortness for breath, chest pain x3 days. Patient states that she gets severe seasonal allergies and believes that this initially triggered her asthma. She states that she had congestion and sneezing 3 days ago this has persisted into shortness for breath. She states that she also has had chest pain which is constant, does not radiate. She has been using her at home inhaler without any relief. She denies any fevers, chills, sore throat, palpitations, vomiting or diarrhea. She does endorse some nausea. No other complaints or concerns at this time. MD complaint: asthma attack , shortness of breath and wheezing Onset (ago): day(s) Severity: mild Context: none known Associated symptoms: productive cough Related Data Home Medications ?Medication ?Instructions ?Recorded ?Confirmed diclofenac sodium 1 % topical gel 2 g topical QID PRN Pain 11/30/20 01/07/24 duloxetine 60 mg capsule,delayed 60 mg PO DAILY 11/30/20 01/07/24 release fluticasone propionate 50 2 spray intranasal DAILY 11/30/20 01/07/24 mcg/actuation nasal spray,suspension lidocaine 5 % topical patch 1 patch topical DAILY 11/30/20 01/07/24 (Lidoderm) montelukast 10 mg tablet 10 mg PO BEDTIME 11/30/20 01/07/24 omeprazole 20 mg capsule,delayed 20 mg PO BID 11/30/20 01/07/24 release atorvastatin 40 mg tablet 1 tab PO BEDTIME 11/04/21 01/07/24 docusate sodium 100 mg capsule 100 mg PO BID 03/13/22 01/07/24 (Colace) cholecalciferol (vitamin D3) 50 1 cap PO QAM 09/10/22 01/07/24 mcg (2,000 unit) capsule (Vitamin D3) ipratropium bromide 17 2 puff inhalation QID PRN wheezing 09/10/22 01/07/24 mcg/actuation HFA aerosol inhaler (Atrovent HFA) furosemide 20 mg tablet 40 mg PO QAM 04/15/23 01/07/24 diltiazem HCl 240 mg 240 mg PO QAM 06/17/23 01/07/24 capsule,extended release 24 hr Previous Rx's ?Medication ?Instructions ?Recorded albuterol sulfate 2.5 mg/3 mL 2.5 mg (3 mL) inhalation Q4-6H PRN 11/14/21 (0.083 %) solution for nebulization shortness of breath or wheezing #90 mL fluticasone furoate 200 1 ea inhalation DAILY #60 ea 04/03/22 mcg-vilanterol 25 mcg/dose inhalation powder (Breo Ellipta) dupilumab 300 mg/2 mL subcutaneous 300 mg (2 mL) subcut Q2W #4 mL 08/08/23 pen injector (Dupixent) gabapentin 300 mg capsule 300 mg PO BEDTIME #90 caps 08/11/23 umeclidinium 62.5 mcg/actuation 1 inh inhalation DAILY #30 ea 09/08/23 blister powder for inhalation (Incruse Ellipta) cyclobenzaprine 10 mg tablet 10 mg PO BEDTIME PRN muscle spasm 10/03/23 7 days #7 tabs naproxen 500 mg tablet 500 mg PO BID PRN pain 7 days #14 10/03/23 tabs tamsulosin 0.4 mg capsule 0.4 mg PO BEDTIME 30 days #90 caps 10/10/23 pyridoxine (vitamin B6) 100 mg 100 mg PO DAILY 90 days #90 tabs 12/09/23 tablet albuterol sulfate 2.5 mg/0.5 mL 5 mg inhalation Q6H PRN 03/02/24 solution for nebulization bronchospasm #30 ea prednisone 20 mg tablet 40 mg (2 x 20 mg) PO DAILY 4 days 03/02/24 #8 tabs Allergies Allergy/AdvReac Type Severity Reaction Status Date / Time pollen extracts [POLLEN] Allergy Unknown RUNNY Verified 03/02/24 10:17 NOSE, ITCHY EYES seasonl allergies Allergy Unknown asthma Uncoded 03/02/24 10:17 attacks Review of Systems Review of Systems: Yes all other systems are reviewed and are negative Constitutional: Constitutional: Reports as per [facility] Past Medical History Medical History COVID-19 Depression Anxiety Migraine headache Arthritis Asthma Surgical History Hx of cholecystectomy Hx of elbow surgery Hx of hysterectomy Social History Social History Household Members: Family Household Members Other:: - [place] Housing: House Do you presently have visiting nurse or other home services: No Alcohol intake: never Patient Tobacco Use Status: Never used Tobacco Second Hand Smoke Exposure: No Advance Directives: Yes Advance Directives on File: Yes Advance Directives Date on File: 09/10/22 service: No Current occupational status: unemployed and disabled Current occupation: rt handed Physical Exam Vital Signs: Vital Signs: Last Vital Signs Temp 97.9 F 03/02/24 13:13 Pulse 94 03/02/24 13:13 Resp 18 03/02/24 13:13 BP 120/60 03/02/24 13:13 Pulse Ox 96 03/02/24 13:13 O2 Del Method Room Air 03/02/24 13:13 BMI result Body Mass Index 23.6 Const: General: cooperative, comfortable and no acute distress Orientation/consciousness: patient oriented x3 Limitations: no limitations HEENT: Head: Yes normal to inspection, Yes normocephalic and Yes atraumatic Ears: hearing grossly normal bilaterally General nose exam: Normal external nose present Face and sinus: Yes normal facial exam Mouth: Normal oral and palatal mucosa present, oropharynx normal and moist mucous membranes Throat: Yes posterior oropharynx normal Eyes: General: appearance normal, both eyes and all related structures Eyelids: Yes eyelids normal Conjunctivae: conjunctivae normal Sclerae: sclerae normal Pupils: Equal, round and reactive pupils present EOM: EOMs intact bilaterally Neck: Neck: Yes normal visual inspection, Yes full ROM and Yes no lymphadenopathy Lymphatic: no lymphadenopathy noted Chest: Chest palpation & inspection: normal inspection of the chest Resp: Other: Diminished lung sounds throughout, no wheezing or rales or rhonchi. Effort & Inspection: normal respiratory effort and able to speak in complete sentences Auscultation: clear to auscultation bilaterally, no crackles, no rales, no rhonchi and no wheezes Cardio: Rate: regular rate Rhythm: regular rhythm Heart sounds: S1 normal heart sound present and S2 normal heart sound present GI: Inspection: Yes normal to inspection Skin: General skin exam: no rashes or lesions noted Trauma: no lacerations or abrasions Wounds: no wounds Neuro: General: patient oriented x3 and moves all extremities Cranial nerves: Yes Equal, round and reactive pupils present Extrem: General: Yes normal to inspection Right upper extremity: normal to inspection Left upper extremity: normal to inspection Right lower extremity: normal to inspection Left lower extremity: normal to inspection Course Reevaluation(s) Reevaluation #1: Labs returned, patient has no leukocytosis, chemistry within normal limits. First troponin less than 2.7. Does not need repeat as chest pain has been constant for the last 3 days. Unlikely ACS presentation. EKG without any ischemic changes. Patient tested negative for flu, RSV, COVID. Chest x-ray normal. Patient currently receiving updraft at this time. Will continue to monitor and re-evaluate. Time: 12:14 Reevaluation #2: Patient feeling slightly improved after updraft. Discussed workup with patient. Given strict return precautions. Patient will be medicated with her 1st dose of prednisone in the department. Albuterol and prednisone course sent to pharmacy. Given return precautions, she is stable, lungs with better air movement, no wheezes, rales or rhonchi auscultated. Patient stable for discharge Time: 13:14 Medications Administered Discontinued Medications Generic Name Dose Route Start Last Admin Trade Name Freq PRN Reason Stop Dose Admin Albuterol Sulfate 2.5 mg/ 5 mg 03/02/24 12:09 03/02/24 12:13 Albuterol Sulfate 2.5 mg INHALE 03/02/24 12:10 5 mg ONCE ONE Administration Medical Decision Making Medical Decision Making [facility] Narrative: This is a 58-year-old female, with a history of asthma, and arthritis, who presents emergency department with complaints of shortness breath, cough, and congestion x3 days. On arrival, patient is speaking in full sentences, under no acute distress. She does sound nasally congested. Vital signs within normal limits. Lungs are diminished throughout, no rales, wheezes, or rhonchi auscultated. Differential diagnoses include reactive airway disease, asthma exacerbation, pneumonia, RSV, flu. ACS also considered due to chest pain however presentation not supportive with this diagnosis. Plan: Labs, EKG, chest x-ray, viral swabs Differential Diagnosis Differential Diagnoses: The differential diagnosis associated with the presentation includes See above Admission/Observation Consideration of admission/observation: Escalation of care including admission/observation considered Escalation of care including admission/observation considered however given workup today not warranted at this time. Lab Data MDM Lab Attestation statement: I reviewed the patient's lab results. No leukocytosis, stable H&H, chemistry within normal limits. Negative flu, RSV, COVID. 03/02/24 11:14 03/02/24 11:14 Labs: Lab Results 03/02/24 Range/Units 11:14 WBC 6.4 (4.8-10.8) X10*3/uL RBC 4.68 (4.20-5.50) X10*6/uL Hgb 13.6 (12.0-16.0) g/dl Hct 40.2 (37.0-47.0) % MCV 85.9 (80.0-98.0) fL MCH 29.1 (27.0-33.0) pg MCHC 33.8 (31.0-35.0) g/dl RDW 13.1 (11.0-16.0) % Plt Count 201 (160-400) X10*3/uL MPV 9.4 (9.4-12.3) fL Immature Gran % (Auto) 0.2 (0.0-0.4) % Neut % (Auto) 52.8 (45-73) % Lymph % (Auto) 34.1 (20-40) % Hunt % (Auto) 9.5 (2-11) % Eos % (Auto) 2.5 (0-4) % Baso % (Auto) 0.9 (0-2) % Lymph # (Auto) 2.2 (1.2-4.9) X10*3/uL Hunt # (Auto) 0.6 (0.1-1.2) X10*3/uL Eos # (Auto) 0.2 (0.0-0.4) X10*3/uL Baso # (Auto) 0.1 (0.0-0.2) X10*3/uL Abs Immat Gran (auto) 0.01 (0.00-0.03) X10*3/uL Absolute Neuts (auto) 3.4 (2.0-8.3) x10*3/uL Absolute Nucleated RBC 0.000 (0.0-0.012) X10*3/uL Nucleated RBC % (auto) 0.0 (0.0-0.2) /100WBC Sodium 141 (135-145) mmol/L Potassium 3.8 (3.3-5.1) mmol/L Chloride 106 (96-108) mmol/L Carbon Dioxide 27 (22-29) mmol/L Anion Gap 12 (12-20) BUN 12 (9-16) mg/dL Creatinine 0.68 (0.5-1.4) mg/dL Estim Creat Clear Calc 73.0 Estimated GFR > 60 Random Glucose 93 (60-115) mg/dL Calcium 9.8 D (8.4-10.2) mg/dL Total Bilirubin 0.7 (0.0-1.0) mg/dL Direct Bilirubin 0.2 (0.0-0.5) mg/dL AST 20 (5-31) U/L ALT 19 (0-31) U/L Alkaline Phosphatase 108 (39-117) U/L Troponin I High Sens < 2.7 (<3.5-17.0) ng/L Total Protein 7.5 (6.5-8.0) g/dL Albumin 4.3 (3.5-5.0) g/dL Influenza Type A (PCR) NEGATIVE (Negative) Influenza Type B (PCR) NEGATIVE (Negative) RSV RNA Qual (PCR) NEGATIVE (Negative) SARS-CoV-2 RNA (RT-PCR) NEGATIVE (Negative) Independent Interpretation I performed an independent interpretation of an: EKG Interpretation: EKG sinus bradycardic at a ventricular rate of 57 beats per minute, NH interval 150, QT QTC 444/432. Radiology Impression Discussion of test interpretation with radiology: I have reviewed the radiologist's reading. Radiologist Impression: XR/XR chest 2V IMPRESSION: No acute cardiopulmonary disease. Dictated By: Karri Mcgowan MD Discharge Plan Discharge Clinical Impression: Asthma, Reactive airway disease Patient Disposition: Home, Self-Care Instructions: Asthma (ED), How Your Lungs Work (ED) Additional Instructions: You were seen in the emergency department due to cough and shortness for breath. Your chest x-ray was normal. You tested negative for COVID, flu, RSV. We medicated you with your 1st dose of prednisone in the department. Please finish course, start this tomorrow. Drink plenty of fluids get plenty of rest. You likely have a virus or reaction to seasonal allergies which is causing you to have worsening asthma. Continue using at home nebulizer treatments. If any new or worsening symptoms occur including but not limited to worsening shortness for breath, chest pain, please return for re-evaluation. Follow-up with your PCP, call today to make an appointment. Prescriptions: New prednisone 20 mg tablet 40 mg PO DAILY 4 Days Qty: 8 0RF Rx Instructions: Start on March 03, 2024 albuterol sulfate 2.5 mg/0.5 mL solution for nebulization 5 mg inhalation Q6H PRN (Reason: bronchospasm) Qty: 30 0RF No Action albuterol sulfate 2.5 mg /3 mL (0.083 %) solution for nebulization 2.5 mg inhalation Q4-6H PRN (Reason: shortness of breath or wheezing) Qty: 90 0RF Breo Ellipta 200-25 mcg/dose blister with device 1 ea inhalation DAILY Qty: 60 6RF Dupixent Pen 300 mg/2 mL pen injector 300 mg subcut Q2W Qty: 4 12RF gabapentin 300 mg capsule 300 mg PO BEDTIME Qty: 90 3RF Incruse Ellipta 62.5 mcg/actuation blister with device 1 inh inhalation DAILY Qty: 30 6RF tamsulosin 0.4 mg capsule 0.4 mg PO BEDTIME 30 Days Qty: 90 2RF pyridoxine (vitamin B6) 100 mg tablet 100 mg PO DAILY 90 Days Qty: 90 1RF lidocaine [Lidoderm] 5 % adhesive patch,medicated 1 patch topical DAILY Rx Instructions: 12 HOURS ON 12 HOURS OFF omeprazole 20 mg capsule,delayed release(DR/EC) 20 mg PO BID montelukast 10 mg tablet 10 mg PO BEDTIME fluticasone propionate 50 mcg/actuation spray,suspension 2 spray intranasal DAILY duloxetine 60 mg capsule,delayed release(DR/EC) 60 mg PO DAILY diclofenac sodium 1 % gel 2 g topical QID PRN (Reason: Pain) Atrovent HFA 17 mcg/actuation HFA aerosol inhaler 2 puff INHALATION QID PRN (Reason: wheezing) cholecalciferol (vitamin D3) [Vitamin D3] 50 mcg (2,000 unit) capsule 1 cap PO QAM atorvastatin 40 mg tablet 1 tab PO BEDTIME naproxen 500 mg tablet 500 mg PO BID PRN (Reason: pain) 7 Days Qty: 14 0RF cyclobenzaprine 10 mg tablet 10 mg PO BEDTIME PRN (Reason: muscle spasm) 7 Days Qty: 7 0RF Rx Instructions: side effect is drowsiness. docusate sodium [Colace] 100 mg capsule 100 mg PO BID furosemide 20 mg tablet 40 mg PO QAM diltiazem HCl 240 mg capsule,extended release 24hr 240 mg PO QAM Print Language: Romansh
--- NOTE | 2024-03-02 11:02 | PC.NURSE ---
Went to room to perform EKG, but patient was away for chest x-ray with radiology.
[2024-03-02 11:24] LABS: MANUAL DIFF FLAG NO
[2024-03-02 11:26] LABS: Basophils Absolute Auto 0.1 X10*3/uL (0.0-0.2); Basophils Percent Auto 0.9 % (0-2); Eosinophils Absolute Auto 0.2 X10*3/uL (0.0-0.4); Eosinophils Percent Auto 2.5 % (0-4); Hematocrit 40.2 % (37.0-47.0); Hemoglobin 13.6 g/dl (12.0-16.0); Imm Gran Abs Auto 0.01 X10*3/uL (0.00-0.03); Imm Gran Pct Auto 0.2 % (0.0-0.4); Lymphocytes Absolute Auto 2.2 X10*3/uL (1.2-4.9); Lymphocytes Percent Auto 34.1 % (20-40); Mean Corpuscular HGB Conc 33.8 g/dl (31.0-35.0); Mean Corpuscular Hemoglobin 29.1 pg (27.0-33.0); Mean Corpuscular Volume 85.9 fL (80.0-98.0); Mean Platelet Volume 9.4 fL (9.4-12.3); Monocytes Absolute Auto 0.6 X10*3/uL (0.1-1.2); Monocytes Percent Auto 9.5 % (2-11); Neutrophils Absolute Auto 3.4 x10*3/uL (2.0-8.3); Neutrophils Percent Auto 52.8 % (45-73); Platelet Count 201 X10*3/uL (160-400); Red Blood Count 4.68 X10*6/uL (4.20-5.50); Red Cell Distribution Width 13.1 % (11.0-16.0); White Blood Count 6.4 X10*3/uL (4.8-10.8)
[2024-03-02 11:43] LABS: Alanine Aminotransferase 19 U/L (0-31); Albumin Level 4.3 g/dL (3.5-5.0); Alkaline Phosphatase 108 U/L (39-117); Anion Gap 12 (12-20); Aspartate Amino Transferase 20 U/L (5-31); Bilirubin Direct 0.2 mg/dL (0.0-0.5); Bilirubin Total 0.7 mg/dL (0.0-1.0); Blood Urea Nitrogen 12 mg/dL (9-16); Calcium 9.8 mg/dL (8.4-10.2); Carbon Dioxide 27 mmol/L (22-29); Chloride 106 mmol/L (96-108); Estimated Glomerular Filt Rate > 60; Glucose Random 93 mg/dL (60-115); Potassium 3.8 mmol/L (3.3-5.1); Sodium 141 mmol/L (135-145); Total Protein 7.5 g/dL (6.5-8.0)
[2024-03-02 11:53] LABS: Troponin-I High Sensitivity < 2.7 ng/L (<3.5-17.0)
[2024-03-02 12:05] LABS: Influenza A PCR NEGATIVE (Negative); Influenza B PCR NEGATIVE (Negative); Resp Syncy Virus RNA Qual PCR NEGATIVE (Negative); SARS COV2 PCR INHOUSE NEGATIVE (Negative)
--- NOTE | 2024-03-02 12:11 | PC.NURSE ---
Respiratory therapist at bedside administering bronchodilator protocol.
[2024-03-02] MEDS: Albuterol Sulfate 2.5 MG, Albuterol Sulfate (0.083%) 2.5 MG 5 MG INHALE (12:13)
[2024-03-02 12:14] VITALS: PULSE 68; RESP 18; O2SAT 97
[2024-03-02 13:13] VITALS: BP 120/60; PULSE 94; RESP 18; TEMP 36.6; O2SAT 96
[2024-03-02] MEDS: predniSONE 20 MG TABLET 40 MG PO (13:34)
[2024-03-02 13:37] VITALS: BP 120/60; PULSE 94; RESP 18; TEMP 36.6; O2SAT 96
== END 2024-03-02 13:38 | disposition home or self-care (01) ==
PROVIDERS: Physician Assistant Medical; Emergency Provider Emergency Medicine; PCP Internal Medicine
DX: J45.909 Unspecified asthma, uncomplicated (principal); R05.9 Cough, unspecified; R06.02 Shortness of breath; R07.9 Chest pain, unspecified; Z79.899 Other long term (current) drug therapy; Z03.818 Encounter for observation for suspected exposure to other biological agents ruled out
CPT/HCPCS: 0241U; 36415; 71046; 80048; 80076; 84484; 85025; 93005; 94640; 99284

== ENCOUNTER → 2024-03-02 10:58 | Outpatient (BNV) | payer MEDICAID, SELFPAY | PROVIDERS: Emergency Provider Emergency Medicine; PCP Internal Medicine; Visit Provider Internal Medicine | DX: R94.31 Abnormal electrocardiogram [ECG] [EKG] (principal) | CPT/HCPCS: 93010 ==

== ENCOUNTER 2024-03-10 05:40 | Emergency (ER) | payer MEDICAID, SELFPAY ==
--- NOTE | ~2024-03-10 | XR_ITS ---
EXAMINATION: XR CHEST CLINICAL INFORMATION: Cough. Right-sided rib pain. Shortness of breath. History of asthma. COMPARISON: Multiple priors with the last chest x-ray of 03/02/2024 TECHNIQUE: 2 views of the chest were obtained. FINDINGS: Cardiomediastinal silhouette is stable and normal. Mild reversal-shaped scoliosis of the thoracic spine is redemonstrated. The lungs are mildly hypoexpanded. No focal consolidation, changes of congestion, pleural effusions or pneumothorax are seen. A surgical anchor is noted projecting over the right humeral head. Cholecystectomy surgical clips are redemonstrated in the right upper abdominal quadrant. No displaced rib fractures are noted. Osteopenia of the spine is suspected. XR/XR chest 2V IMPRESSION: No acute pulmonary process. No displaced rib fractures are demonstrated on the submitted views.
[2024-03-10 05:42] VITALS: BP 118/63; PULSE 63; RESP 20; TEMP 36.4; O2SAT 98; BMI 24.5
--- NOTE | 2024-03-10 07:16 | ED.ASTHMA ---
HPI - Asthma General Chief Complaint: Dyspnea Stated Complaint: asthmatic, Diff breathing Time Seen by Provider: 03/10/24 07:08 Source: patient and old records reviewed Mode of arrival: ambulatory Limitations: no limitations History of Present Illness ED Provider: NADINE ALDRICH Narrative: 58 yo female with PMH of UTI, severe asthma, UTI, arthritis here with c/o persistent asthma - she is going to see pulmonology today at 945 for her first what sounds like xolair injection. She is compliant with her INH and therapies. She did well with the 5 day burst of prednisone on 03/02. Her main complaint is dry cough and R rib pain. She has appointment with Jessie at 10am today complaint: asthma attack Onset (ago): week(s) (1+) Severity: moderate Context: other (weather) Associated symptoms: dry cough Asthma History: childhood onset Treatments Prior to Arrival: inhaled bronchodilator and inhaled steroid Related Data Home Medications ?Medication ?Instructions ?Recorded ?Confirmed diclofenac sodium 1 % topical gel 2 g topical QID PRN Pain 11/30/20 01/07/24 duloxetine 60 mg capsule,delayed 60 mg PO DAILY 11/30/20 01/07/24 release fluticasone propionate 50 2 spray intranasal DAILY 11/30/20 01/07/24 mcg/actuation nasal spray,suspension lidocaine 5 % topical patch 1 patch topical DAILY 11/30/20 01/07/24 (Lidoderm) montelukast 10 mg tablet 10 mg PO BEDTIME 11/30/20 01/07/24 omeprazole 20 mg capsule,delayed 20 mg PO BID 11/30/20 01/07/24 release atorvastatin 40 mg tablet 1 tab PO BEDTIME 11/04/21 01/07/24 docusate sodium 100 mg capsule 100 mg PO BID 03/13/22 01/07/24 (Colace) cholecalciferol (vitamin D3) 50 1 cap PO QAM 09/10/22 01/07/24 mcg (2,000 unit) capsule (Vitamin D3) ipratropium bromide 17 2 puff inhalation QID PRN wheezing 09/10/22 01/07/24 mcg/actuation HFA aerosol inhaler (Atrovent HFA) furosemide 20 mg tablet 40 mg PO QAM 04/15/23 01/07/24 diltiazem HCl 240 mg 240 mg PO QAM 06/17/23 01/07/24 capsule,extended release 24 hr Previous Rx's ?Medication ?Instructions ?Recorded albuterol sulfate 2.5 mg/3 mL 2.5 mg (3 mL) inhalation Q4-6H PRN 11/14/21 (0.083 %) solution for nebulization shortness of breath or wheezing #90 mL fluticasone furoate 200 1 ea inhalation DAILY #60 ea 04/03/22 mcg-vilanterol 25 mcg/dose inhalation powder (Breo Ellipta) dupilumab 300 mg/2 mL subcutaneous 300 mg (2 mL) subcut Q2W #4 mL 08/08/23 pen injector (CasinityixTrustedAd) gabapentin 300 mg capsule 300 mg PO BEDTIME #90 caps 08/11/23 umeclidinium 62.5 mcg/actuation 1 inh inhalation DAILY #30 ea 09/08/23 blister powder for inhalation (Incruse Ellipta) cyclobenzaprine 10 mg tablet 10 mg PO BEDTIME PRN muscle spasm 10/03/23 7 days #7 tabs naproxen 500 mg tablet 500 mg PO BID PRN pain 7 days #14 10/03/23 tabs tamsulosin 0.4 mg capsule 0.4 mg PO BEDTIME 30 days #90 caps 10/10/23 pyridoxine (vitamin B6) 100 mg 100 mg PO DAILY 90 days #90 tabs 12/09/23 tablet albuterol sulfate 2.5 mg/0.5 mL 5 mg inhalation Q6H PRN 03/02/24 solution for nebulization bronchospasm #30 ea prednisone 20 mg tablet 40 mg (2 x 20 mg) PO DAILY 4 days 03/02/24 #8 tabs Allergies Allergy/AdvReac Type Severity Reaction Status Date / Time pollen extracts [POLLEN] Allergy Unknown RUNNY Verified 03/10/24 05:43 NOSE, ITCHY EYES seasonl allergies Allergy Unknown asthma Uncoded 03/10/24 05:43 attacks Review of Systems Review of Systems: Constitutional : No Fever, No Chills ENT/Mouth : No Hoarseness, No sore throat, No Rhinorrhea Eyes: No Redness, No Discharge, No Vision Changes Cardiovascular : No Chest Pain, positive SOB, positive Dyspnea on Exertion, No Edema Respiratory : positive Cough, No Sputum, positive Wheezing, Gastrointestinal : No Nausea, No Vomiting, No Diarrhea, No abdominal Pain Genitourinary : No Dysuria, No Hematuria Musculoskeletal : No joint pain, No Myalgias Skin : No rash Neuro : No Weakness, No Numbness, No Headache Psych : No anxiety, depression Heme/Lymph: No Bruising, No Bleeding Endocrine : No Polyuria, No Polydipsia All other systems reviewed and are negative [facility] Past Medical History Attestation statement: The following information was validated with the patient. Source: old records reviewed Medical History COVID-19 Depression Anxiety Migraine headache Arthritis Asthma Surgical History Hx of cholecystectomy Hx of elbow surgery Hx of hysterectomy Social History Social History Household Members: Family Household Members Other:: - [place] Housing: House Do you presently have visiting nurse or other home services: No Alcohol intake: never Patient Tobacco Use Status: Never used Tobacco Second Hand Smoke Exposure: No Advance Directives: Yes Advance Directives on File: Yes Advance Directives Date on File: 09/10/22 Do you have a plan to hurt others: No Plan service: No Current occupational status: unemployed and disabled Current occupation: rt handed Physical Exam Vital Signs: Vital Signs: Last Vital Signs Temp 97.5 F 03/10/24 05:42 Pulse 63 03/10/24 05:42 Resp 20 03/10/24 05:42 BP 118/63 03/10/24 05:42 Pulse Ox 98 03/10/24 05:42 O2 Del Method Room Air 03/10/24 05:42 BMI result Body Mass Index 24.5 Appearance: Alert. Oriented X3. No acute distress. Eyes: Pupils equal, round and reactive to light. ENT: Pharynx normal. Neck: Normal inspection. Neck supple. CVS: Normal heart rate and rhythm. Pulses normal. Respiratory: No respiratory distress. Breath sounds dry cough mildly diminished . Abdomen: Soft and nontender. Skin: Skin warm and dry. Normal skin color. Normal skin turgor. Extremities: No lower extremity edema. No calf ttp Neuro: Oriented X 3. No motor deficit. No sensory deficit. Medical Decision Making Medical Decision Making MDM Narrative: 58 yo female with PMH of UTI, severe asthma, UTI, arthritis here with c/o R rib pain from cough and asthma exacerbation at this time will obtain CXR for rib injury or effusion/pneumonia - give neb and start on dexamethasone she has appointment with pulmonology at 945am today will defer further care and she is aware. No distress in the ED. Differential Diagnosis Differential Diagnoses: The differential diagnosis associated with the presentation includes allergies, asthma Admission/Observation Consideration of admission/observation: Escalation of care including admission/observation considered no hypoxia no resp distress has injection and follow up today with pulmonology Independent Interpretation I performed an independent interpretation of an: Plain X-Ray (normal ) Radiology Impression Discussion of test interpretation with radiology: I have reviewed the radiologist's reading. External Record Review External record reviewed: Inpatient record Prescription Management I considered prescription management with: Other Discharge Plan Discharge Clinical Impression: Asthma Qualifiers: Asthma severity: severe Asthma persistence: persistent Asthma complication type: with acute exacerbation Qualified Code(s): J45.51 - Severe persistent asthma with (acute) exacerbation Patient Disposition: Home, Self-Care Instructions: Asthma (ED) Additional Instructions: please folllow up with pulmonology today as planned return to the ED for any worsening symptoms or concerns Prescriptions: No Action albuterol sulfate 2.5 mg /3 mL (0.083 %) solution for nebulization 2.5 mg inhalation Q4-6H PRN (Reason: shortness of breath or wheezing) Qty: 90 0RF Breo Ellipta 200-25 mcg/dose blister with device 1 ea inhalation DAILY Qty: 60 6RF Dupixent Pen 300 mg/2 mL pen injector 300 mg subcut Q2W Qty: 4 12RF gabapentin 300 mg capsule 300 mg PO BEDTIME Qty: 90 3RF Incruse Ellipta 62.5 mcg/actuation blister with device 1 inh inhalation DAILY Qty: 30 6RF tamsulosin 0.4 mg capsule 0.4 mg PO BEDTIME 30 Days Qty: 90 2RF pyridoxine (vitamin B6) 100 mg tablet 100 mg PO DAILY 90 Days Qty: 90 1RF lidocaine [Lidoderm] 5 % adhesive patch,medicated 1 patch topical DAILY Rx Instructions: 12 HOURS ON 12 HOURS OFF omeprazole 20 mg capsule,delayed release(DR/EC) 20 mg PO BID montelukast 10 mg tablet 10 mg PO BEDTIME fluticasone propionate 50 mcg/actuation spray,suspension 2 spray intranasal DAILY duloxetine 60 mg capsule,delayed release(DR/EC) 60 mg PO DAILY diclofenac sodium 1 % gel 2 g topical QID PRN (Reason: Pain) Atrovent HFA 17 mcg/actuation HFA aerosol inhaler 2 puff INHALATION QID PRN (Reason: wheezing) cholecalciferol (vitamin D3) [Vitamin D3] 50 mcg (2,000 unit) capsule 1 cap PO QAM atorvastatin 40 mg tablet 1 tab PO BEDTIME naproxen 500 mg tablet 500 mg PO BID PRN (Reason: pain) 7 Days Qty: 14 0RF cyclobenzaprine 10 mg tablet 10 mg PO BEDTIME PRN (Reason: muscle spasm) 7 Days Qty: 7 0RF Rx Instructions: side effect is drowsiness. prednisone 20 mg tablet 40 mg PO DAILY 4 Days Qty: 8 0RF Rx Instructions: Start on March 03, 2024 albuterol sulfate 2.5 mg/0.5 mL solution for nebulization 5 mg inhalation Q6H PRN (Reason: bronchospasm) Qty: 30 0RF docusate sodium [Colace] 100 mg capsule 100 mg PO BID furosemide 20 mg tablet 40 mg PO QAM diltiazem HCl 240 mg capsule,extended release 24hr 240 mg PO QAM Print Language: Lao
[2024-03-10] MEDS: guaiFEN/Codeine SF 200/20/10ML 10 ML LIQUID 5 ML PO (08:17)
[2024-03-10] MEDS: dexAMETHasone sod phosphate 10 MG/ML VIAL PO (08:17)
[2024-03-10] MEDS: Albuterol Sulfate 2.5 MG, Albuterol/Iprat 2.5/0.5MG 3 ML 3 ML INHALE (08:18)
[2024-03-10 08:21] VITALS: PULSE 64; RESP 24; O2SAT 98
[2024-03-10 08:42] VITALS: BP 107/67; PULSE 65; RESP 16; TEMP 36.7; O2SAT 98
== END 2024-03-10 08:43 | disposition home or self-care (01) ==
PROVIDERS: Emergency Provider Emergency Medicine
DX: J45.51 Severe persistent asthma with (acute) exacerbation (principal); R06.02 Shortness of breath; R05.9 Cough, unspecified; R07.81 Pleurodynia; Z79.899 Other long term (current) drug therapy
CPT/HCPCS: 71046; 94640; 99212; 99283; 99284; J1100

== ENCOUNTER 2024-03-10 09:08 | Outpatient (AMB) | payer MEDICAID, SELFPAY ==
[2024-03-10 09:24] VITALS: BP 102/62; PULSE 72; O2SAT 97; BMI 27.0
--- NOTE | 2024-03-10 09:24 | MHC.OFFVIS ---
Vital Signs 03/10/24 09:24 Height 5 ft 2 in Weight 147 lb 11.355 oz BMI 27.0 BP 102/62 Blood Pressure Location Rt brachial Position Sitting Pulse 72 Pulse Source Doppler Pulse Oximetry (%) 97 Oxygen Delivery Method Room Air Intake Visit Reasons: Asthma Allergies pollen extracts [POLLEN] Allergy (Unknown, Verified 03/10/24 09:29) RUNNY NOSE, ITCHY EYES seasonl allergies Allergy (Unknown, Uncoded 03/10/24 05:43) asthma attacks HPI HPI Asthma: Details: 58-year-old lady, nonsmoker, followed for underlying moderate to severe persistent allergic asthma and dyspnea on exertion.? Patient has been on Dupixent, Breo, albuterol MDI, and nebs with good control of her asthma symptoms. However, she developed an allergic reaction to Dupixent and with switch to Tezspire. Patient had 3 injections so far with suboptimal control of her symptoms with recent exacerbation treated with a course of prednisone. [facility] Medical History COVID-19 Depression Anxiety Migraine headache Arthritis Asthma Surgical History Hx of cholecystectomy Hx of elbow surgery Hx of hysterectomy Social History Household Members: Family Household Members Other:: - [place] Housing: House Do you presently have visiting nurse or other home services: No Alcohol intake: never Patient Tobacco Use Status: Never used Tobacco Second Hand Smoke Exposure: No Advance Directives Date on File: 09/10/22 service: No Current occupational status: unemployed and disabled Current occupation: rt handed Review of Systems Const Denies daytime sleepiness, Denies excessive sweating, Denies fatigue, Denies fever(s), Denies lethargy, Denies malaise, Denies night sweats, Denies snoring and Denies weight loss Eyes Denies blurry vision and Denies itchy eyes ENT Denies nasal congestion, Denies post nasal drip, Denies sinus pain, Denies sinus pressure and Denies other ( Thrush) Card Denies chest pain, Denies pedal edema, Denies dyspnea, Denies orthopnea and Denies paroxysmal nocturnal dyspnea Resp Denies cough, Denies hemoptysis, Denies excessive phlegm production, Denies dyspnea, Denies snoring and Denies wheezing GI Denies abdominal pain and Denies heartburn Musc Denies myalgias, Denies arthralgias and Denies joint swelling Skin/Breast Denies rash Neuro Denies memory loss and Denies seizure-like activity Psych Denies abnormal sleep pattern, Denies anxiety and Denies memory loss Endo Denies excessive sweating, Denies fatigue and Denies heat intolerance Tristin/Lymph Denies easy bruising Aller/Immun Denies itchy eyes, Denies seasonal rhinorrhea and Denies wheezing Physical Exam Vital Signs: Last Vital Signs Pulse 72 03/10/24 09:24 BP 102/62 03/10/24 09:24 Pulse Ox 97 03/10/24 09:24 Oxygen Delivery Method Room Air 03/10/24 09:24 BMI result Body Mass Index 27.0 Const General: no acute distress and alert Nutritional Appearance: not obese Orientation/consciousness: Other orientation findings ( oriented) HEENT Head: Yes atraumatic Eyes General: appearance normal, both eyes and all related structures Sclerae: sclerae normal EOM: EOMs intact bilaterally Neck Neck: Yes supple Lymphatic: no lymphadenopathy noted Resp Effort & Inspection: normal respiratory effort and no use of accessory muscles Auscultation: clear to auscultation bilaterally Cardio Rate: regular rate Rhythm: regular rhythm Heart sounds: no gallops, no murmurs and no rubs Skin General skin exam: other ( warm) Extrem General: No clubbing, No cyanosis and No edema Assessment & Plan Assessment & Plan (1) Severe persistent asthma: Code(s): J45.50 - Severe persistent asthma, uncomplicated Category: Medical Plan: Previously well controlled on Dupixent, however developed an allergic reaction and was switched to Tezspire. Still with suboptimal control, expect to improve as further injections. Will start on slow low-dose prednisone taper. Continue current regimen including Breo, albuterol MDI/nebs, Incruse, and Singulair. (2) Environmental allergies: Code(s): Z91.09 - Other allergy status, other than to drugs and biological substances Category: Medical Plan: Expect to improve on Tezspire. Medications: New prednisone Take 2 tabs daily for 4 weeks, then take 1 tab daily for 4 weeks 5 mg PO DIRECTED 84 tabs 0RF Discontinued dupilumab (Dupixent) Discontinued Reason: Doctor's Order 300 mg (2 mL) subcut Q2W 4 mL 12RF Coding Level of Care Code Est Pt Level 4 (78383) Diagnoses Severe persistent asthma J45.50 Environmental allergies Z91.09
== END 2024-03-10 09:45 | disposition home or self-care (01) ==
PROVIDERS: PCP Registered Nurse; Visit Provider Internal Medicine Pulmonary Disease
DX: J45.50 Severe persistent asthma, uncomplicated (principal); Z91.09 Other allergy status, other than to drugs and biological substances
CPT/HCPCS: 99214

== ENCOUNTER 2024-05-14 09:42 | Outpatient (REF) | payer MEDICAID, SELFPAY ==
--- NOTE | ~2024-05-14 | XR_ITS ---
EXAMINATION: XR SHOULDER, LEFT CLINICAL INFORMATION: Left shoulder pain COMPARISON: X-ray of the left shoulder June 2021 TECHNIQUE: AP external rotation, Grashey, scapular Y, and axillary views of the left shoulder. FINDINGS: The bones and soft tissues are normal. No fracture. Glenohumeral and acromioclavicular alignment is anatomic with normal joint space. No abnormal soft tissue calcifications. XR/XR shoulder LT min 2V IMPRESSION: Normal left shoulder. Electronically signed by: Eric Castro MD 05/20/2024 09:57 PM EDT
--- NOTE | ~2024-05-14 | XR_ITS ---
EXAMINATION: XR ELBOW, LEFT CLINICAL INFORMATION: Left shoulder and elbow pain. COMPARISON: X-ray left forearm June 2021 TECHNIQUE: AP, lateral, and oblique views of the left elbow. FINDINGS: The bones and soft tissues are normal. No fracture or joint effusion. Alignment is anatomic. Joint spaces are maintained. XR/XR elbow LT min 3V IMPRESSION: Normal left elbow. Electronically signed by: Eric Castro MD 05/20/2024 08:12 PM EDT
== END 2024-05-14 09:43 | disposition home or self-care (01) ==
LOC: HO.HHCX 09:42
PROVIDERS: Visit Provider Nurse Practitioner
DX: M25.522 Pain in left elbow (principal); M25.512 Pain in left shoulder
CPT/HCPCS: 73030; 73080

== ENCOUNTER 2024-06-16 08:46 | Outpatient (AMB) | payer MEDICAID, SELFPAY ==
[2024-06-16 09:02] VITALS: BP 102/62; PULSE 83; O2SAT 97; BMI 28.4
--- NOTE | 2024-06-16 09:02 | A.OFFVIS_ITS ---
Vital Signs 06/16/24 09:02 Height 5 ft 2 in Weight 155 lb 6.814 oz BMI 28.4 BP 102/62 Blood Pressure Location Rt brachial Position Sitting Pulse 83 Pulse Source Doppler Pulse Oximetry (%) 97 Oxygen Delivery Method Room Air Intake Visit Reasons: Asthma Allergies pollen extracts [POLLEN] Allergy (Unknown, Verified 03/10/24 09:29) RUNNY NOSE, ITCHY EYES seasonl allergies Allergy (Unknown, Uncoded 03/10/24 05:43) asthma attacks HPI HPI Asthma: Details: 58-year-old lady, nonsmoker, followed for underlying moderate to severe persistent allergic asthma and dyspnea on exertion.? Patient has been on Dupixent, Breo, albuterol MDI, and nebs with good control of her asthma symptoms. However, she developed an allergic reaction to Dupixent and was switched to Tezspire. After the last office visit patient had additional 3 injections with significantly improved symptom control. She denies any recent exacerbations. [facility] Medical History COVID-19 Depression Anxiety Migraine headache Arthritis Asthma Surgical History Hx of cholecystectomy Hx of elbow surgery Hx of hysterectomy Social History Household Members: Family Household Members Other:: - [place] Housing: House Do you presently have visiting nurse or other home services: No Alcohol intake: never Patient Tobacco Use Status: Never used Tobacco Second Hand Smoke Exposure: No Advance Directives Date on File: 09/10/22 service: No Current occupational status: unemployed and disabled Current occupation: rt handed Review of Systems Const Denies daytime sleepiness, Denies excessive sweating, Denies fatigue, Denies fever(s), Denies lethargy, Denies malaise, Denies night sweats, Denies snoring and Denies weight loss Eyes Denies blurry vision and Denies itchy eyes ENT Denies nasal congestion, Denies post nasal drip, Denies sinus pain, Denies sinus pressure and Denies other ( Thrush) Card Denies chest pain, Denies pedal edema, Denies dyspnea, Denies orthopnea and Denies paroxysmal nocturnal dyspnea Resp Denies cough, Denies hemoptysis, Denies excessive phlegm production, Denies dyspnea, Denies snoring and Denies wheezing GI Denies abdominal pain and Denies heartburn Musc Denies myalgias, Denies arthralgias and Denies joint swelling Skin/Breast Denies rash Neuro Denies memory loss and Denies seizure-like activity Psych Denies abnormal sleep pattern, Denies anxiety and Denies memory loss Endo Denies excessive sweating, Denies fatigue and Denies heat intolerance Tristin/Lymph Denies easy bruising Aller/Immun Denies itchy eyes, Denies seasonal rhinorrhea and Denies wheezing Physical Exam Vital Signs: Last Vital Signs Pulse 83 06/16/24 09:02 BP 102/62 06/16/24 09:02 Pulse Ox 97 06/16/24 09:02 Oxygen Delivery Method Room Air 06/16/24 09:02 BMI result Body Mass Index 28.4 Const General: no acute distress and alert Nutritional Appearance: not obese Orientation/consciousness: Other orientation findings ( oriented) HEENT Head: Yes atraumatic Eyes General: appearance normal, both eyes and all related structures Sclerae: sclerae normal EOM: EOMs intact bilaterally Neck Neck: Yes supple Lymphatic: no lymphadenopathy noted Resp Effort & Inspection: normal respiratory effort and no use of accessory muscles Auscultation: clear to auscultation bilaterally Cardio Rate: regular rate Rhythm: regular rhythm Heart sounds: no gallops, no murmurs and no rubs Skin General skin exam: other ( warm) Extrem General: No clubbing, No cyanosis and No edema Assessment & Plan Assessment & Plan (1) Severe persistent asthma: Code(s): J45.50 - Severe persistent asthma, uncomplicated Category: Medical Plan: Now well controlled on Tezspire, Breo, Incruse, and albuterol MDI/nebs. Continue current regimen (2) Environmental allergies: Code(s): Z91.09 - Other allergy status, other than to drugs and biological substances Category: Medical Plan: Significantly improved control on Tezspire. Continue current regimen. Coding Level of Care Code Est Pt Level 4 (70856) Diagnoses Severe persistent asthma J45.50 Environmental allergies Z91.09
== END 2024-06-16 09:22 | disposition home or self-care (01) ==
PROVIDERS: PCP Student in an Organized Health Care Education/Training Program; Visit Provider Internal Medicine Pulmonary Disease
DX: J45.50 Severe persistent asthma, uncomplicated (principal); Z91.09 Other allergy status, other than to drugs and biological substances
CPT/HCPCS: 99214

== ENCOUNTER → 2024-06-16 08:46 | Outpatient (BNVA) | payer MEDICAID, SELFPAY | PROVIDERS: PCP Student in an Organized Health Care Education/Training Program; Visit Provider Internal Medicine Pulmonary Disease | DX: J45.50 Severe persistent asthma, uncomplicated (principal); Z91.09 Other allergy status, other than to drugs and biological substances | CPT/HCPCS: 99212 ==

== ENCOUNTER 2024-07-08 08:29 | Outpatient (REF) | payer MEDICAID, SELFPAY ==
--- NOTE | ~2024-07-08 | MM_ITS ---
EXAMINATION: MM SCREENING DIGITAL BREAST TOMOSYNTHESIS, BILATERAL CLINICAL INFORMATION: Screening. Asymptomatic. COMPARISON: Mammography: Comparison is made with available priors TECHNIQUE: Digital breast mammography with tomosynthesis is performed in both the craniocaudal and mediolateral oblique views along with computer-aided detection (CAD). FINDINGS: There are scattered areas of fibroglandular density (ACR BI-RADS breast composition Category b). Left marker clip. There are no significant masses, abnormal calcifications, or other abnormalities. MM/MM tomosynthesis screening BI IMPRESSION: No mammographic evidence of malignancy. ASSESSMENT: BI-RADS BI-RADS 2 - Benign Findings RECOMMENDATION: Routine annual mammography screening. 1 year F/U This examination should not preclude the clinical evaluation of a suspicious palpable abnormality. This patient's information was entered into a reminder system with a target due date for their next mammogram. Electronically signed by: Ligia Jarvis DO 07/16/2024 04:07 PM WILLIAM
== END 2024-07-08 08:30 | disposition home or self-care (01) ==
LOC: HO.MAMMO 08:29
PROVIDERS: PCP Student in an Organized Health Care Education/Training Program; Visit Provider Student in an Organized Health Care Education/Training Program
DX: Z12.31 Encounter for screening mammogram for malignant neoplasm of breast (principal)
CPT/HCPCS: 77063; 77067

== ENCOUNTER → 2024-07-08 08:32 | Outpatient (BNV) | payer MEDICAID, SELFPAY | PROVIDERS: PCP Student in an Organized Health Care Education/Training Program; Visit Provider Internal Medicine | DX: Z12.31 Encounter for screening mammogram for malignant neoplasm of breast (principal) | CPT/HCPCS: 77063; 77067 ==

== ENCOUNTER 2024-08-04 14:31 | Outpatient (REF) | payer MEDICAID, SELFPAY | END 2024-08-04 14:32 | disposition home or self-care (01) | LOC: HO.MRI 14:31 | PROVIDERS: PCP Student in an Organized Health Care Education/Training Program; Visit Provider Psychiatry & Neurology Neurology | DX: G44.009 Cluster headache syndrome, unspecified, not intractable (principal); G51.39 Clonic hemifacial spasm, unspecified | CPT/HCPCS: 70551 ==

== ENCOUNTER 2024-08-23 13:32 | Outpatient (AMB) | payer MEDICAID, SELFPAY ==
--- NOTE | 2024-08-23 13:34 | MHC.OFFVIS ---
Vital Signs 08/23/24 13:37 Height 5 ft 2 in Weight 154 lb 1.65 oz BMI 28.2 BP 104/62 Blood Pressure Location Lt brachial Position Sitting Respiration 16 Pulse 90 Pulse Source Pulse Oximeter Pulse Oximetry (%) 98 Oxygen Delivery Method Room Air Intake Visit Reasons: OA Intake Note: Patient presents for OA. Allergies pollen extracts [POLLEN] Allergy (Unknown, Verified 08/23/24 13:36) RUNNY NOSE, ITCHY EYES seasonl allergies Allergy (Unknown, Uncoded 03/10/24 05:43) asthma attacks Medication List - Last Reconciled 08/23/24 by China Levine MD albuterol sulfate 5 mg inhalation Q6H PRN albuterol sulfate 2.5 mg (3 mL) inhalation Q4-6H PRN atorvastatin 1 tab PO BEDTIME cholecalciferol (vitamin D3) (Vitamin D3) 1 cap PO QAM cyclobenzaprine 10 mg PO BEDTIME PRN 7 days diclofenac sodium 1% 2 grams topical QID PRN diltiazem HCl CD 240 mg PO QAM docusate sodium (Colace) 100 mg PO BID duloxetine 60 mg PO DAILY fluticasone furoate-vilanterol 200-25 mcg/dose (Breo Ellipta) 1 ea inhalation DAILY fluticasone propionate 50 mcg/actuation 2 sprays intranasal DAILY furosemide 40 mg PO QAM gabapentin 300 mg PO BEDTIME ipratropium bromide 17 mcg/actuation (Atrovent HFA) 2 puffs inhalation QID PRN lidocaine 5% (Lidoderm) 1 patch topical DAILY montelukast 10 mg PO BEDTIME naproxen 500 mg PO BID PRN 7 days omeprazole 20 mg PO BID prednisone 40 mg (2 x 20 mg) PO DAILY 4 days prednisone 5 mg PO DIRECTED pyridoxine (vitamin B6) 100 mg PO DAILY 90 days tamsulosin 0.4 mg PO BEDTIME 30 days umeclidinium 62.5 mcg/actuation (Incruse Ellipta) 1 inh PO DAILY HPI Comments Details: 59-year-old female with generalized osteoarthritis returns for follow-up. States that she is doing about the same overall. No significant joint pains recently. Offers no complaints today Initial history: This is a 57-year-old female presents for evaluation of generalized osteoarthritis. She was last seen by Laurie Jo 06/2022. Patient states that she has chronic pain everywhere including her neck, elbows, hands. She states that over the last 1-2 weeks she has been having neck pain radiating to her shoulders. She also has been having pain in her left thumb. She takes duloxetine and gabapentin she sometimes applies Voltaren gel on affected areas. [facility] Medical History (Updated 08/23/24 @ 13:58 by China Levine MD) COVID-19 Depression Anxiety Migraine headache Arthritis Asthma Surgical History Hx of cholecystectomy Hx of elbow surgery Hx of hysterectomy Social History Household Members: Family Household Members Other:: - [place] Housing: House Do you presently have visiting nurse or other home services: No Alcohol intake: never Patient Tobacco Use Status: Never used Tobacco Second Hand Smoke Exposure: No Advance Directives Date on File: 09/10/22 service: No Current occupational status: unemployed and disabled Current occupation: rt handed Review of Systems Musc Denies arthralgias, Denies joint swelling and Denies stiffness Physical Exam Vital Signs: Last Vital Signs Pulse 90 08/23/24 13:37 Resp 16 08/23/24 13:37 BP 104/62 08/23/24 13:37 Pulse Ox 98 08/23/24 13:37 Oxygen Delivery Method Room Air 08/23/24 13:37 BMI result Body Mass Index 28.2 Const General: cooperative, healthy appearing and comfortable Nutritional Appearance: overweight Orientation/consciousness: patient oriented x3 Limitations: no limitations HEENT Head: Yes normocephalic and Yes atraumatic Mouth: moist mucous membranes Resp Effort & Inspection: normal respiratory effort and able to speak in complete sentences Neuro General: patient oriented x3 Extrem Other: Mild Osteoarthritic changes of both hands, joints are not acutely swollen or tender today Normal pain-free range of motion of elbows and shoulders Assessment & Plan Assessment & Plan (1) Osteoarthritis of hands, bilateral: Code(s): M19.041 - Primary osteoarthritis, right hand; M19.042 - Primary osteoarthritis, left hand Category: Medical Qualifiers: Osteoarthritis type: primary Qualified Code(s): M19.041 - Primary osteoarthritis, right hand; M19.042 - Primary osteoarthritis, left hand Plan: Patient returns for follow-up. Doing well overall. Her hand OA has not been a problem lately. Does not require any specific treatment. Discussed with patient that at this time she can return as needed Plan I spent 10 minutes reviewing patient's chart, evaluating patient, counseling patient and documenting in the chart Coding Level of Care Code Est Pt Level 3 (95521) Diagnoses Primary osteoarthritis of both hands M19.041; M19.042 Osteoarthritis type: primary
[2024-08-23 13:37] VITALS: BP 104/62; PULSE 90; RESP 16; O2SAT 98; BMI 28.2
== END 2024-08-23 13:56 | disposition home or self-care (01) ==
PROVIDERS: PCP Student in an Organized Health Care Education/Training Program; Visit Provider Student in an Organized Health Care Education/Training Program
DX: M19.041 Primary osteoarthritis, right hand (principal); M19.042 Primary osteoarthritis, left hand
CPT/HCPCS: 99213

== ENCOUNTER → 2024-08-23 13:32 | Outpatient (BNVA) | payer MEDICAID, SELFPAY | PROVIDERS: PCP Student in an Organized Health Care Education/Training Program; Visit Provider Student in an Organized Health Care Education/Training Program | DX: M19.041 Primary osteoarthritis, right hand (principal); M19.042 Primary osteoarthritis, left hand | CPT/HCPCS: 99212 ==

== ENCOUNTER 2024-11-18 11:07 | Outpatient (REF) | payer MEDICAID, SELFPAY ==
[2024-11-18 11:18] LABS: MANUAL DIFF FLAG NO
[2024-11-18 12:03] LABS: Basophils Absolute Auto 0.1 X10*3/uL (0.0-0.2); Basophils Percent Auto 0.5 % (0-2); Eosinophils Absolute Auto 0.1 X10*3/uL (0.0-0.4); Eosinophils Percent Auto 0.6 % (0-4); Hematocrit 40.4 % (37.0-47.0); Hemoglobin 13.4 g/dl (12.0-16.0); Imm Gran Abs Auto 0.03 X10*3/uL (0.00-0.03); Imm Gran Pct Auto 0.3 % (0.0-0.4); Lymphocytes Absolute Auto 2.9 X10*3/uL (1.2-4.9); Mean Corpuscular HGB Conc 33.2 g/dl (31.0-35.0); Mean Corpuscular Hemoglobin 28.5 pg (27.0-33.0); Mean Corpuscular Volume 85.8 fL (80.0-98.0); Mean Platelet Volume 9.4 fL (9.4-12.3); Monocytes Absolute Auto 0.7 X10*3/uL (0.1-1.2); Monocytes Percent Auto 5.8 % (2-11); Neutrophils Absolute Auto 7.8 x10*3/uL (2.0-8.3); Neutrophils Percent Auto 67.8 % (45-73); Platelet Count 288 X10*3/uL (160-400); Red Blood Count 4.71 X10*6/uL (4.20-5.50); Red Cell Distribution Width 13.3 % (11.0-16.0); White Blood Count 11.4 X10*3/uL (4.8-10.8)
[2024-11-18 12:26] LABS: C Reactive Protein 0.38 mg/dL (< or = 0.50)
[2024-11-18 12:53] LABS: Erythrocyte Sedimentation Rate 23 MM/HR (0-20)
[2024-11-19 11:53] LABS: Lyme Abs Screen <0.90 index
== END 2024-11-18 11:08 | disposition home or self-care (01) ==
LOC: HO.LAB 11:07
PROVIDERS: PCP Student in an Organized Health Care Education/Training Program; Visit Provider Registered Nurse
DX: G43.909 Migraine, unspecified, not intractable, without status migrainosus (principal)
CPT/HCPCS: 36415; 85025; 85652; 86140; 86617; 86618

== ENCOUNTER 2024-12-10 09:01 | Emergency (ER) | payer MEDICAID, SELFPAY ==
--- NOTE | 2024-12-10 | ECG_ITS ---
Test Reason : cp Blood Pressure : */* mmHG Vent. Rate : 67 BPM Atrial Rate : 67 BPM P-R Int : 148 ms QRS Dur : 86 ms QT Int : 416 ms P-R-T Axes : 32 -4 19 degrees QTcB Int : 439 ms Normal sinus rhythm Minimal voltage criteria for LVH, may be normal variant ( R in aVL ) Cannot rule out Anterior infarct (cited on or before 17-May-2021) Abnormal ECG When compared with ECG of 02-Mar-2024 11:04, No significant change was found Referred By: Generic ED Physician Electronically Signed By: Roddy Murphy
--- NOTE | ~2024-12-10 | XR_ITS ---
EXAMINATION: XR CHEST CLINICAL INFORMATION: CP COMPARISON: None available. TECHNIQUE: 2 views of the chest were obtained. FINDINGS: Lungs are well-expanded and clear. The heart size and pulmonary vascularity is normal. There is moderate deviation of thoracic spine to the right. No aggressive lytic or sclerotic process seen. There is an previous cholecystectomy changes. XR/XR chest 2V IMPRESSION: No acute cardiopulmonary process seen. Electronically signed by: Erwin Lockhart MD 12/10/2024 09:46 AM EDT RP
[2024-12-10 09:12] VITALS: BP 161/86; PULSE 73; RESP 20; TEMP 36.4; O2SAT 98; BMI 26.5
[2024-12-10 09:21] LABS: Basophils Absolute Auto 0.1 X10*3/uL (0.0-0.2); Basophils Percent Auto 0.6 % (0-2); Eosinophils Absolute Auto 0.1 X10*3/uL (0.0-0.4); Eosinophils Percent Auto 0.5 % (0-4); Hematocrit 40.3 % (37.0-47.0); Hemoglobin 13.7 g/dl (12.0-16.0); Imm Gran Abs Auto 0.06 X10*3/uL (0.00-0.03); Imm Gran Pct Auto 0.5 % (0.0-0.4); Lymphocytes Absolute Auto 5.5 X10*3/uL (1.2-4.9); MANUAL DIFF FLAG SCAN; Mean Corpuscular Hemoglobin 28.9 pg (27.0-33.0); Mean Platelet Volume 8.9 fL (9.4-12.3); Monocytes Absolute Auto 0.9 X10*3/uL (0.1-1.2); Monocytes Percent Auto 6.7 % (2-11); Neutrophils Absolute Auto 6.5 x10*3/uL (2.0-8.3); Neutrophils Percent Auto 49.7 % (45-73); Platelet Count 255 X10*3/uL (160-400); Red Blood Count 4.74 X10*6/uL (4.20-5.50); Red Cell Distribution Width 13.2 % (11.0-16.0); SCAN SMEAR FLAG 1
[2024-12-10 09:31] LABS: INTERNATIONAL NORM RATIO 0.9 (0.9-1.1); Prothrombin Time 10.6 SEC (10.9-12.4)
[2024-12-10 09:33] LABS: Alanine Aminotransferase 26 U/L (0-31); Alkaline Phosphatase 99 U/L (39-117); Anion Gap 13 (12-20); Aspartate Amino Transferase 18 U/L (5-31); Bilirubin Total 0.5 mg/dL (0.0-1.0); Blood Urea Nitrogen 17 mg/dL (9-16); Calcium 9.3 mg/dL (8.4-10.2); Carbon Dioxide 26 mmol/L (22-29); Chloride 107 mmol/L (96-108); Creatinine Clr Calc Pharmacy 106.3; Estimated Glomerular Filt Rate > 60; Glucose Random 106 mg/dL (60-115); Potassium 3.6 mmol/L (3.3-5.1); Sodium 142 mmol/L (135-145); Total Protein 6.9 g/dL (6.5-8.0)
[2024-12-10 09:47] LABS: SLIDE REVIEW VERIFIED; Troponin-I High Sensitivity < 2.7 ng/L (<3.5-17.0)
[2024-12-10 10:04] VITALS: BP 133/80; PULSE 67; RESP 18; O2SAT 97
--- NOTE | 2024-12-10 10:17 | PC.NURSE ---
c/o substernal sharp chest pain and persistent dizziness even while lying still. pt has had migraines and dizziness/neuro sx from migraines recently and awaits neuro appointment. NSR on monitor. unlabored resp. LS CTA. skin PWD. denies diaphoresis, SOB, palpitations. CP is non-reproducable.
--- OUTSIDE RECORDS SUMMARY | 2024-12-10 10:41 | XMS_ITS | Encounter Summary ---
Author Organization [employer] Address [address] [place] [address] Care Team Providers Care Data Officer Name Role Phone Alesia Sanchez MD Primary Care Pro vider Jesus Bae Unavailable Unavailable Annette Marcus RN Unavailable [phone] Patria Bae RN Unavailable [phone] Encounter Details Date Type Department Care Team (Late st Contact Info) Description 02/02/2024 Orders Only [facility]INE [address] [place] [address] Provider, MD S[place] Social History Tobacco Use Types Packs/Day Years Used Date Smoking Tobacco: Never Smokeless Tobacco: Never Alcohol Use Standard Drinks/Week Comments Never 0 (1 standard drink = 0.6 oz pur e alcohol) Depression Answer Date Recorded Patient Health Questionnaire-9 Score 0 03/10/2023 Housing Stability Answer Date Recorded What is your housing situation today? I have anastasiia buenrostro 06/17/[address] you li ve. Do you have problems with any of the following? None of the above 06/17/2023 Food Insecurity Answer Date Recorded Within the past 12 months, y ou worried that your food would run out before you got money to buy more: Never True 06/17/2023 Within the past 12 months,th e food you bought just didn't last and you didn't have enough money to get more: Never True Transportation Answer Date Recorded In the past 12 months, has l ack of transportation kept you from medical appts, meetings, work or from getting things needed for daily living? No 06/17/2023 Utilities Answer Date Recorded In the past 12 months, has t he electric, gas, oil or water company threatened to shut off services in your home? No 06/17/2023 Depression Answer Date Recorded Patient Health Questionnaire-2 Score 0 03/10/2023 Comments Unknown Sex and Gender Information Value Date Recorded Sex Assigned at Female 07/01/2022 10:18 AM EDT Legal Sex Female 10:18 AM EDT Gender Identity Female 07/01/2022 10:18 AM EDT Sexual Orientation Straight 07/01/2022 10 :18 AM EDT documented as of this encounter Plan of Treatment Not on file documented as of this encounter Procedures Procedure Name Priority Date/Time Associated Diagnosis Comments HM COLONOSCOPY Routine 04/10/2018 12:16 PM EDT documented in this encounter Results * Hm Colonoscopy (04/10/2018 12:16 PM EDT) Historical Provider HEALTH MAINTENANCE Final Result documented in this encounter Visit Diagnoses Not on filedocumented in this encounter Additional Health Concerns Assessment Noted Time PHQ-9 Depression Total Score: 0 03/10/20 3:40 PM EDT documented as of this encounter Care Teams Data Officer Relationship Specialty Start Date End Date Alesia Sanchez MD [address] [place] [id number] PCP - General Internal Medicine 06/10/23 Jesus Bae Community Health Worker 03/11/24 Annette Marcus RN [address] [place] [address] Senior Design Engineering Specialist 03/11/24 04/11/24 Patria Bae RN [address] [place] [address] Senior Design Engineering Specialist 04/12/24 06/09/24 Shu Smith Senior Design Engineering SpecialistAsphalt Paving Superintendent 08/17/24 documented as of this encounter
--- OUTSIDE RECORDS SUMMARY | 2024-12-10 10:41 | XMS_ITS | Encounter Summary ---
Author Organization [employer] [facility] Address [address] [place] [address] Care Team Providers Care [employer] Name Role Phone Sheng Farr NP Primary Care Provider [phone] Encounter Details Date Type Department Care Team (Late st Contact Info) Description 12/07/2024 Telephone [facility] [address] [place] [address] Nicolasa Cobian RN Social History Tobacco Use Types Packs/Day Years Used Date Smoking Tobacco: Never Comments Unknown Sex and Gender Information Value Date Recorded Sex Assigned at Not on file Legal Sex Female 4:17 AM EST Gender Identity Not on file Sexual Orientation Not on file documented as of this encounter Progress Notes * Nicolasa Cobian RN - 12/07/2024 9:36 AM EDT PAR called reporting Headaches. Rates 7/10. Speech is clear, she is not stumbling words, and answering questions appropriately. Alert and oriented. Reports yesterday she felt she was fumbling throughher words to try and speak. Reports recent increased weakness in left arm and leg. Feels pressure in the back of her head near her neck. + slight dizziness. Reports having some blurry vision in left eye which is not new. VESTA Is taking her Topiramate and Amitriptyline. Tried taking newly prescribed Sumatriptan but reports within an hour she started vomited and this happened twice after taking Sumatriptan. PCP aware. PCP to see VESTA in clinic. Transportation aware documented in this encounter Plan of Treatment Upcoming Encounters Date Type Department Care Team (Late st Contact Info) Description 12/29/2024 8:45 AM EDT Consult Orthopedic Surgery - [place] [address] [phone] Alexander Asencio, DPM [address] [address] 12/29/2024 12:20 PM EDT Clinical Support [facility] [address] [place] [phone] documented as of this encounter Visit Diagnoses Not on filedocumented in this encounter Care Teams [employer] Relationship Specialty Start Date End Date Sheng Farr NP [address] [place] [address] PCP - General PACE 11/02/24 documented as of this encounter
--- OUTSIDE RECORDS SUMMARY | 2024-12-10 10:41 | XMS_ITS | Encounter Summary ---
Author Organization [employer] Address [address] [facility] [address] [place] [address] Care Team Providers Care Occupational Therapy Manager Name Role Phone Alesia Sanchez MD Primary Care Pro vider Jesus Bae Unavailable Unavailable Annette Marcus RN Unavailable [phone] Patria Bae RN Unavailable [phone] Reason for Visit * Reason Comments Med Refill Encounter Details Date Type Department Care Team (Late st Contact Info) Description 07/07/[address] [facility] [address] [place] [address] Myriam Hicks FNP [address] [place] [address] Dept [place] [address] Social History Tobacco Use Types Packs/Day Years Used Date Smoking Tobacco: Never Smokeless Tobacco: Never Alcohol Use Standard Drinks/Week Comments Never 0 (1 standard drink = 0.6 oz pur e alcohol) Depression Answer Date Recorded Patient Health Questionnaire-9 Score 0 03/10/2023 Housing Stability Answer Date Recorded What is your housing situation today? I have anastasiiafelix buenrostro 06/17/[address] you [...] on file documented as of this encounter Visit Diagnoses Not on filedocumented in this encounter Additional Health Concerns Assessment Noted Time PHQ-9 Depression Total Score: 0 03/10/20 23 3:40 PM EDT documented as of this encounter Care Teams Occupational Therapy Manager Relationship Specialty Start Date End Date Alesia Sanchez MD [address] [place] [id number] PCP - General Internal Medicine 06/10/23 Jesus Bae Community Health Worker 03/11/24 Annette Marcus RN [address] [place] [address] Rural Mail [employer]or 03/11/24 04/11/24 Patria Bae RN [address] [place] [address] Rural Mail Contractor 04/12/24 06/09/24 Shu Smith [employer] ContractorS[employer]ing Machine Attachment Tester 08/17/24 documented as of this encounter
--- OUTSIDE RECORDS SUMMARY | 2024-12-10 10:41 | XMS_ITS | Clinical Summary ---
Author Organization [employer] Address [address] [place] [address] [address] [place] [address] Care Team Providers Care Flight Engineer Instructor Name Role Phone Alesia Sanchez MD Primary Care Pro vider Jesus Bae Unavailable Unavailable Allergies Active Allergy Reactions Criticality Noted Date Comments Buspirone 03/10/2023 GI upset Vomiting Dupilumab Rash Medium 02/26/2024 Fixed drug eruption 09/2023. Gramineae Pollens 09/17/2022 Medications Breo Ellipta 200-25 MCG/ACT aerosol powder Take 1 puff by mouth 1 (one) time each day at the same time. 06/24/20 22 Active Incruse Ellipta 62.5 MCG/ACT aerosol powder Take 1 puff by mouth 1 (one) time each day at the same time. 08/16/20 22 Active Diclofenac Sodium 1 % gelIndications:C hronic back pain, unspecified back location, unspecified back pain laterality APPLY 2 GRAMS TOPICALLY TO AFFECTED AREA(S) FOUR TIMES DAILY 100 g 1 04/07/20 23 Active dilTIAZem CD (Cardizem CD) 240 MG 24 hr capsule Take 240 mg by mouth in the morning. 05/27/20 23 Active albuterol (2.5 MG/3ML) 0.083% nebulizer solutionIndicati ons:Moderate persistent asthma without complication INHALE 1 AMPULE USING A NEBULIZER THREE TIMES DAILY 90 mL 1 07/21/20 23 Active triamcinolone (Kenalog) 0.1 % cream Apply topically 2 times daily. 30 g 1 09/17/19 24 Active cetirizine (ZyrTEC) 10 MG tabletIndication s:Seasonal allergic rhinitis, unspecified trigger TAKE 1 TABLET BY MOUTH EVERY DAY NEEDED FOR ALLERGIES 90 tablet 05/24/20 24 Active amitriptyline (Elavil) 75 MG tablet Take 75 mg by mouth at bedtime. 05/27/20 24 Active furosemide (Lasix) 40 MG tablet Take 40 mg by mouth in the morning. 04/28/20 24 Active pantoprazole (ProtoNix) 40 MG EC tablet Take 40 mg by mouth. 04/19/20 24 Active pyridoxine (Vitamin B-6) 100 MG tablet Take 100 mg by mouth in the morning. 04/28/20 Active SUMAtriptan (Imitrex) 100 MG tablet TAKE 1 TABLET BY MOUTH AT ONSET OF MIGRAINE. MAY REPEAT ONCE AFTER 2 HOURS IF NEEDED 04/13/20 24 Active tamsulosin (Flomax) 0.4 MG 24 hr capsule Take 0.4 mg by mouth at bedtime. 04/28/20 Active Wheat Dextrin (Benefiber) powder DISSOLVE 4 GRAM IN 4 TO 8 OUNCES OF bebida AND TAKE UP THREE TIMES DAILY NEEDED 04/19/20 24 Active topiramate 50 MG tablet Take 100 mg by mouth 2 times daily. Active Tezepelumab-ekko (Tezspire) 210 MG/1.91ML solution auto-injector Inject under the skin. Active atorvastatin (Lipitor) 40 MG tablet TAKE 1 TABLET BY MOUTH EVERY MORNING 90 tablet 1 07/20/20 24 Active cholecalciferol (D3 Super Strength) 50 MCG (2000 UT) capsuleIndicatio ns:Vitamin D deficiency TAKE 1 CAPSULE BY MOUTH EVERY MORNING 90 capsule 08/18/20 24 Active DULoxetine (Cymbalta) [address] capsule TAKE 1 CAPSULE BY MOUTH AT BEDTIME 30 capsule 2 10/12/19 25 Active Skin Protectants, Misc. (eucerin) cream Apply topically if needed for wound care. 99 g 1 10/15/19 25 026 Active betamethasone valerate (Valisone) 0.1 % cream Apply topically 2 times daily. 30 g 1 10/15/19 25 Active gabapentin (Neurontin) 300 MG capsule TAKE 1 CAPSULE BY MOUTH AT BEDTIME 30 capsule 10/26/19 25 Active Atrovent HFA 17 MCG/ACT inhalerIndicatio ns:Moderate persistent asthma without complication INHALE 2 PUFFS BY MOUTH FOUR TIMES DAILY NEEDED 12.9 g 1 11/19/19 25 Active montelukast (Singulair) 10 MG tabletIndication s:Mild intermittent asthma without complication TAKE 1 TABLET BY MOUTH AT BEDTIME 90 tablet 1 12/09/19 25 Active docusate sodium (Colace) 100 MG capsuleIndicatio ns:Other constipation TAKE 1 CAPSULE BY MOUTH TWICE DAILY IN THE MORNING AND AT BEDTIME 180 capsule 1 12/09/19 25 Active montelukast (Singulair) 10 MG tabletIndication s:Mild intermittent asthma without complication TAKE 1 TABLET BY MOUTH AT BEDTIME 90 tablet 1 06/23/20 24 025 Discontinued docusate sodium (Colace) 100 MG capsuleIndicatio ns:Other constipation TAKE 1 CAPSULE BY MOUTH TWICE DAILY IN THE MORNING AND IN THE EVENING 180 capsule 1 06/23/20 24 025 Discontinued Atrovent HFA 17 MCG/ACT inhalerIndicatio ns:Moderate persistent asthma without complication INHALE 2 PUFFS BY MOUTH FOUR TIMES DAILY NEEDED 12.9 g 1 08/13/20 24 025 Discontinued Active Problems Problem Noted Date Diagnosed Date GERD (gastroesophageal reflux disease) 4 Diastolic congestive heart f ailure, unspecified HF chronicity 06/22/2024 H. pylori infection 02/03/2024 History of appendectomy 01/21/2024 Hx of cholecystectomy 01/21/2024 Health care maintenance 03/10/2023 Overview (03/10/2023): Routine Health Maintenance: Immunizations: Due PCV 20, received 03/10/23. Hep B dose #1. All other vaccines up to date HIV: Non reactive 06/12/2018 Hep C: Non reactive 07/21/2018 Hepatitis B: Non reactive titers 07/21/2018, No records of booster vaccines. Receive dose #1 03/10/23 Pap Smear: Discuss at next visit Mammogram: 10/04/21 BIRADS 1. Repeat 2022, pt reports she had it done. No record of imaging. Will task [place] to check for results. BMD: >age 65, not performed yet. Colonoscopy: 04/10/2018 Normal, repeat 10 years. 2027 Lung cancer: Never smoker Eye: Refer [facility] vision 03/10/23 Dental: Discuss next visit Right flank pain 09/24/2022 Assessment & Plan (09/24/2022 4:01 PM EST): Now with R flank pain, was seen recently with left flank pain and dx w/ pyelonephritis and kidney stones. She was suppose to see urology but has not gotten appt, referral was place on 09/18/21 by BRENDA Muhammad. Will send bactrim, send for imaging to r/o stone vs pyelonephritis. Also send reglan for nausea. IF worsening symptoms recommended patient to f/up in ED. Imaging scheduled for tomorrow morning by MK. Diastolic dysfunction 01/22/2022 Overview (06/06/2023): 10/17/22 - Cardiology appt. Diastolic heart failure, palpitations and asthma are stable. Euvolemic. No concerns. continue current med regimen. Followup 6mo BLE swelling has improved. Euvolemic. Treating Furosemide 20 mg daily 04/03/23: Cardiology appt worsening SOB, leg edema, chest pain, palpitations. Increase diuresis. Order echo and stress test. F/u 4 wks 05/22/23: exercise stress test no change from 03/06/22 05/27/23: Cardiology f/u sx of tachycardia and palpitations. Increase Cardizem dose f/u 1 wk 06/03/23: Cardiology TV, echo Normal. SOB may be r/t asthma. F/u with Pulm. F/u Cards 3 mo Assessment & Plan (03/10/2023 6:15 PM EDT): Continue Furosemide No BLE swelling today Stable F/u Cardiology coming up in Apr 2023 Encouraged pt to call Cardiology and confirm when her appt is F/u 3 months with new PCP Fibromyalgia 09/14/2021 History of hysterectomy for benign disease 11/30 Backache 05/31/2013 Mixed anxiety and depressive disorder 05/31/2013 Overview (03/10/2023): Has therapy and psych provider. Report she has not been taking Buspar b/c it cause GI upset and vomiting. Assessment & Plan (03/10/2023 6:18 PM EDT): Continue therapy and psych provider appt Will call [facility] and discontinue buspar F/u PRN Allergic rhinitis 12/28/2012 Asthma 12/28/2012 Overview (03/10/2023): Care managed by Dr. Roman. 07/09/22 Well controlled using Dupixent, Breo 200, ipratropium, albuterol MDI/nebs, and Singulair Pt reports night time wakening gasping for air. Hx of 2 sleep studies 06/16/2018, no sleep apnea noted. Repeated 10/15/21, was normal as well. Assessment & Plan (03/10/2023 6:17 PM EDT): Lung sounds WNL today on exam Recommended pt to call Litigation Legal Assistant for f/u appt to discuss sleep apnea sx with provider. 2 normal sleep studies in the past, other cause may be related to pulmonary conditions or HF F/u PRN with new PCP after pulmonology appt or sooner if sx worsen Bipolar disorder 12/28/2012 Migraine 11/24/2012 Encounters Date Type Department Care Team Description 12/10/2024 Orders Only GENERIC EXTERNAL DATA DEPARTMENT Provider, Generic External Data 12/08/2024 Refill [facility] MED [facility] PEDS [address] [place] [address] Alesia Sanchez MD Mild intermittent asthma without complication; Other constipation 11/17/2024 Refill [facility] MEDICINE [address] [place] [address] Virginia Melvin DO Moderate persistent asthma without complication 11/12/2024 Population Health Risk Score [facility] [address] [phone] Provider, Population Health Generic 10/25/2024 Refill [facility] MEDICINE [address] [place] [address] Ernestina Alcantar ANP 10/20/2024 10:00 AM EST Office Visit [facility] [address] [place] [address] Bailey Rehman MD Chronic left shoulder pain (Primary Dx) 10/19/2024 Telephone [facility] MEDICINE [address] [place] [phone] Monse Fall [place] May Recall 10/15/2024 11:20 AM EST Office Visit [facility] [address] [place] [address] Maico Mooney MD Chronic left shoulder pain (Primary Dx); Foot dermatitis 10/09/2024 Refill [facility] MEDIC[facility] [address] [place] [address] Alesia Sanchez MD 10/05/2024 Telephone [facility] MED[facility]INE [address] [place] [phone] Alesia Sanchez MD Appointment Request 09/28/2024 Refill [facility] MEDICINE [address] [place] [phone] Alesia Sanchez MD from Last 3 Months Immunizations Name Administration Dates Next Due Hep B, adult 03/10/2023 Influenza Injectable Quadriv alant Preservative Free IIV4 MDCK 07/21/2020 Influenza injectable quadriv alent IIV4 with preservative 05/17/2019 Influenza injectable quadriv alent preservative free 07/31/2022,07/31/2021,04/30/2018,06/11,10/22/2016,11/30/2014 Influenza, IIV3, injectable 09/05/2010 Influenza, Split (incl. steven fied surface antigen) 07/17/2012 Influenza, seasonal, injecta ble, preservative free 06/22/2024 MMR 06/30/2024 Moderna Covid-19 Vaccine 12+ 03/29/2022, 07/31/2021,01/17/2021,12/20 Pfizer Covid-19 Vaccine 12+ 06/22/2024, 4 Pneumococcal Conjugate PCV 20 03/10/2023 Pneumococcal Polysaccharide PPSV23 01/30/2018, TD (adult), 2 Lf tetanus tox oid, preservative free, adsorbed 07/31/2022 Td (adult), 5 Lf tetanus tox oid, preservative free, adsorbed 08/07/2007 Tdap 07/17/2012 Zoster, Recombinant 03/08/2020,09/16/2019 Family History Medical History Relation Name Comments Prostate cancer Father Breast cancer Maternal Grandmother Heart disease Maternal Grandmother breast ca Maternal Grandmother Breast cancer Mother's Sister Breast cancer Paternal Grandmother Heart disease Paternal Grandmother Relation Name Status Comments Father Maternal Grandmother Mother's Sister Paternal Grandmother Social History Tobacco Use Types Packs/Day Years Used Date Smoking Tobacco: Never Smokeless Tobacco: Never Tobacco Cessation:Counseling Given: Not Answered Alcohol Use Standard Drinks/Week Comments Never 0 (1 standard drink = 0.6 oz pur e alcohol) Alcohol Answer Date Recorded Frequency of Alcohol Consumption Not on file 06/22/2024 Average Number of Drinks Not on file 024 Frequency of Binge Drinking Not on file 06/02 Score 0 06/22/2024 Depression Answer Date Recorded Patient Health Questionnaire-9 Score 12 06/22/2024 Patient Health Questionnaire-9 Score 12 06/22/2024 Last PHQ-9: Questionnaire Data Not on file 1 Housing Stability Answer Date Recorded What is [...] from getting things needed for daily living? Yes, it has kept me from medical appointments or getting medications. 03/11/2024 Utilities Answer Date Recorded In the past 12 months, has t he electric, gas, oil or water company threatened to shut off services in your home? No 06/17/2023 Depression Answer Date Recorded Patient Health Questionnaire-2 Score 2 06/22/2024 Internet Access Answer Date Recorded Internet Access Q1 Yes 05/03/2024 Internet Access Q2 Not on file 05/03/2024 Comments Unknown Sex and Gender Information Value Date Recorded Sex Assigned at Female 07/01/2022 10:18 AM EDT Legal Sex Female 10:18 AM EDT Gender Identity Female 07/01/2022 10:18 AM EDT Sexual Orientation Straight 07/01/2022 10 :18 AM EDT Last Filed Vital Signs Vital Sign Reading Time Taken Comments Blood Pressure 127/78 10/20/2024 9:43 AM EST Pulse 76 10/20/2024 9:43 AM EST Temperature 36.1 ??C (97 ??F) 10/20/2024 9:43 AM EST Respiratory Rate 18 10/20/2024 9:43 AM EST Oxygen Saturation 97% 10/15/2024 10:58 AM EST Inhaled Oxygen Concentration - - Weight 71.9 kg (158 lb 9.6 oz) 10/20/2024 9:43 A M EST Height 157.5 cm (5' 2 ) 10/20/2024 9:43 AM EST Body Mass Index 29.01 10/20/2024 9:43 AM EST Plan of Treatment Health Maintenance Due Date Last Done Comments CT Colonography 1967 FIT DNA/Cologuard 1967 FIT 1967 FOBT 1967 HIV Screening 1965 Sigmoidoscopy 1967 Hepatitis C Screening 1985 Pap Smear 1988 Cervical Cancer Screening 1997 HPV/Cotest 1997 Dental Oral Exam 01/12/2019 07/14/2018 Dental Prophylaxis 02/09/2019 08/10/2018 Dental X-Ray: Bitewings 07/15/2019 07/14/2018, 07/14 Dental X-Ray: Full Mouth 07/15/2021 07/14/2018, 07/02 Hepatitis B Vaccines (2 of 3 - 19+ 3-dose series) 04/07/2023 03/10/2023 Depression Monitoring 12/21/2024 06/22/2024, 024 SDOH Screening 03/11/2025 03/11/2024 Alcohol/Substance Use Screening 06/22/2025 06/22/2024 Depression Screening 06/22/2025 06/22/2024, 06/22/20 24 Tobacco Screening 10/15/2025 10/15/2024 Mammogram 07/08/2026 07/08/2024, 09/02, 09/22/2019, Additional history exists Lipid Panel 08/08/2027 08/08/2022, 12/10/2020, 04/07/2020 Colonoscopy 04/10/2028 04/10/2018 Colorectal Cancer Screening 04/10/2028 DTaP/Tdap/Td Vaccines (3 - Td or Tdap) 07/31/2032 07/31/2022, 07/17/2012, 08/07/2007 RSV Patients and Patients Aged 60 years or older (1 - 1-dose 75+ series) 2042 Zoster Vaccines Completed 03/08/2020, 09/16/2019 Pneumococcal Vaccine: 50+ Years Completed 03/10/2023, 01/30/2018, 09/05/2010 COVID-19 Vaccine Completed 06/22/2024, , 03/29/2022, Additional history exists Influenza Vaccine Completed 06/22/2024, , 07/31/2021, Additional history exists HIB Vaccines Aged Out No longer eligi ble based on patient's age to complete this topic HPV Vaccines Aged Out No longer eligi ble based on patient's age to complete this topic Hepatitis A Vaccines Aged Out No long er eligible based on patient's age to complete this topic IPV Vaccines Aged Out No longer eligi ble based on patient's age to complete this topic Meningococcal Vaccine Aged Out No geoffrey victorina eligible based on patient's age to complete this topic RSV under 20 months Aged Out No longe r eligible based on patient's age to complete this topic Rotavirus Vaccines Aged Out No longer eligible based on patient's age to complete this topic Procedures Procedure Name Priority Date/Time Associated Diagnosis Comments XR CHEST 2 VIEWS Routine 12/10/2024 9:25 AM EDT SLIDE REVIEW Routine 12/10/2024 9:11 AM EDT HIGH SENSITIVITY TROPONIN I Routine 12/10/2024 9:11 AM EDT MAGNESIUM Routine 12/10/2024 9:11 AM EDT COMPREHENSIVE METABOLIC PANEL Routine 12/10/2024 9:11 AM EDT PROTHROMBIN TIME-INR Routine 12/10/2024 9:11 AM EDT CBC WITH AUTO DIFFERENTIAL Routine 12/10/2024 9:11 AM EDT BI MAMMOGRAM SCREENING TOMOSYNTHESIS BILATERAL Routine 07/08/2024 8:32 AM EST Breast cancer screening by mammogram LIPID PANEL, STANDARD Routine 08/08/2022 8:50 AM EST PROPHYLAXIS - ADULT Routine 08/10/2018 1 2:00 AM EST INTRAORAL - COMPLETE SERIES OF RADIOGRAPHIC IMAGES Routine 07/14/2018 12:00 AM EST COMPREHENSIVE ORAL EVALUATION - NEW OR ESTABLISHED PATIENT Routine 07/14/2018 12:00 AM EST HM COLONOSCOPY Routine 04/10/2018 12:16 PM EDT from Last 3 Months or Most Recently Relevant to Health Maintenance Results * XR Chest 2 Views (12/10/2024 9:25 AM EDT) Anatomical Region Laterality Modality Chest Radiographic Neli ging 12/10/2024 9:25 AM EDT Narrative 12/10/2024 9:49 AM EDT ? [facility] ?[address] ?[place] [address] ?XRay Report ? Signed ? Patient: Alberta Bashir ?MR#: ?? [id number] ? : 1965 ?Acct:[id number] ? Age/Sex: 59 / F ?ADM Date: 04/11/25 ? Loc: HO.ED ? Attending Dr: ? Ordering Physician: Generic ED Physician ?? Date of Service: 12/10/24 ?? Procedure(s): XR chest 2V ?? Accession Number(s): [id number] ? cc: Generic ED Physician; Alesia Sanchez MD ? EXAMINATION: ?? XR CHEST ? CLINICAL INFORMATION: ?? CP ? COMPARISON: ?? None available. ? TECHNIQUE: ?? 2 views of the chest were obtained. ? FINDINGS: ?? Lungs are well-expanded and clear. The heart size and pulmonary ?? vascularity is normal. There is moderate deviation of thoracic spine to ?? the right. No aggressive lytic or sclerotic process seen. There is an ?? previous cholecystectomy changes. ? XR/XR chest 2V ?? IMPRESSION: ?? No acute cardiopulmonary process seen. ? Electronically signed by: ??Erwin Lockhart MD ??12/10/2024 09:46 AM EDT RP ? Dictated By: ?Erwin Lockhart MD ? Signed By: ?<Electronically signed by Erwin Lockhart MD in OV> ?12/10/24 0946 ? DD/ 0925 ? TD/TT: 12/10/24 0930 ? House Wrecker: MSM ? Procedure Note Donotmateuszter, Image - 12/10/2024 [place] [address] XRay Report Signed Patient: Higinio Bashir#: [id number] : 1965Acct:[id number] Age/Sex: 59 / FADM Date: 12/10/24 Loc: .ED Attending Dr: Ordering Physician: Generic ED Physician Date of Service: 12/10/24 Procedure(s): XR chest 2V Accession Number(s): [id number] cc: Generic ED Physician; Alesia Sanchez MD EXAMINATION: XR CHEST CLINICAL INFORMATION: CP COMPARISON: None available. TECHNIQUE: 2 views of the chest were obtained. FINDINGS: Lungs are well-expanded and clear. The heart size and pulmonary vascularity is normal. There is moderate deviation of thoracic spine to the right. No aggressive lytic or sclerotic process seen. There is an previous cholecystectomy changes. XR/XR chest 2V IMPRESSION: No acute cardiopulmonary process seen. Electronically signed by: Erwin Lockhart MD 12/10/2024 09:46 AM EDT Dictated By: Erwin Lockhart MD Signed By: <Electronically signed by Erwin Lockhart MD in OV> 12/10/24945 DD/ 4 TD/TT: 12/10/24929 House Wrecker: YESSEN[facility] External Provider IMG XR PROCEDURES Final Result * Slide Review (12/10/2024 9:11 AM EDT) Slide Review VERIFIED [facility] 12/10/2024 9:11 AM EDT 12/10/2024 9:17 AM EDT Generic External Data Provider LAB BLOOD ORDERAB LES Final Result Performing Organization Address [facility] Co de Phone Number [facility] [address] [place] [phone] * High Sensitivity Troponin I (12/10/2024 9:11 AM EDT) Pathologist [facility] TROPONIN I HIGH SENSITIVITY <2.7 <3.5 - 17.0 ng/L [facility] Comment:The Cárdenas high sens itivity Troponin-I results should beused in conjunction with other diagnostic information suchas ECG, clinical observations and information, and patientsymptoms to aid in the diagnosis of PR. 12/10/2024 9:11 AM EDT 12/10/2024 9:17 AM EDT Generic External Data Provider LAB BLOOD ORDERAB LES Final Result Performing Organization Address [facility] Co de Phone Number [facility] [address] [place] [phone] * (ABNORMAL) CBC auto differential (12/10/2024 9:11 AM EDT) Pathologist [facility] White Blood Count 13.0(H) 4.8 - 10.8 X10*3/uL [facility] Red Blood Count 4.74 4.20 - 5.50 X10*6/uL [facility] Hemoglobin 13.7 12.0 - 16.0 g/dl [facility] Hematocrit 40.3 37.0 - 47.0 % [facility] Mean Corpuscular Volume 85.0 80.0 - 98.0 fL [facility] Mean Corpuscular Hemoglobin 28.9 27.0 - 33.0 pg [facility] Mean Corpuscular HGB Conc 34.0 31.0 - 35.0 g/dl [facility] Red Cell Distribution Width 13.2 11.0 - 16.0 % [facility] Platelet Count 255 160 - 400 X10*3/uL [facility] Mean Platelet Volume 8.9(L) 9.4 - 12.3 fL [facility] Neutrophils Percent Auto 49.7 45 - 73 % [facility] Imm Gran Pct Auto 0.5(H) 0.0 - 0.4 % [facility] Lymphocytes Percent Auto 42.0(H) 20 - 40 % [facility] Monocytes Percent Auto 6.7 2 - 11 % [facility] Eosinophils Percent Auto 0.5 0 - 4 % [facility] Basophils Percent Auto 0.6 0 - 2 % [facility] NRBC Pct Auto 0.0 0.0 - 0.2 /100WBC [facility] Neutrophils Absolute Auto 6.5 2.0 - 8.3 x10*3/uL [facility] Imm Gran Abs Auto 0.06(H) 0.00 - 0.03 X10*3/uL [facility] Lymphocytes Absolute Auto 5.5(H) 1.2 - 4.9 X10*3/uL [facility] Monocytes Absolute Auto 0.9 0.1 - 1.2 X10*3/uL [facility] Eosinophils Absolute Auto 0.1 0.0 - 0.4 X10*3/uL [facility] Basophils Absolute Auto 0.1 0.0 - 0.2 X10*3/uL [facility] NRBC Abs Auto 0.000 0.0 - 0.012 X10*3/uL [facility] 12/10/2024 9:11 AM EDT 12/10/2024 9:17 AM EDT Generic External Data Provider LAB BLOOD ORDERAB LES Edited Result - Final Performing Organization Address [facility] Co de Phone Number [facility] [address] [place] [phone] * (ABNORMAL) Prothrombin Time-INR (12/10/2024 9:11 AM EDT) Prothrombin Time 10.6(L) 10.9 - 12.4 SEC [facility] INTERNATIONAL NORM RATIO 0.9 0.9 - 1.1 [facility] Comment:INTERNATIONAL NORMAL IZED RATIO (INR) REFERENCE RANGES Reference RangeFor patients not on anticoagulant therapy: 0.9 - 1.1INR ranges for oral anticoagulanttherapy:For prevention and treatment of venous thrombosis and pulmonary embolism: 2.0 - 3.0For acute myocardial infarction with aspirin therapy: 2.0 - 3.0For acute myocardial infarction without aspirin therapy: 3.0 - 4.0For patients with mechanical prosthetic heart valves: 2.5 - 3.5 12/10/2024 9:11 AM EDT 12/10/2024 9:17 AM EDT us Generic External Data Provider LAB BLOOD ORDERAB LES Final Result Performing Organization Address [facility] de Phone Number [facility] [address] [place] [phone] * Magnesium (12/10/2024 9:11 AM EDT) Pathologist [facility] Magnesium 2.0 1.6 - 2.6 mg/dL [facility] 12/10/2024 9:11 AM EDT 12/10/2024 9:17 AM EDT us Generic External Data Provider LAB BLOOD ORDERAB LES Final Result Performing Organization Address [facility] Co de Phone Number [facility] [address] [place] [phone] * (ABNORMAL) Comprehensive Metabolic Panel (12/10/2024 9:11 AM EDT) Sodium 142 135 - 145 mmol/L [facility] Potassium 3.6 3.3 - 5.1 mmol/L [facility] Chloride 107 96 - 108 mmol/L [facility] Carbon Dioxide 26 22 - 29 mmol/L [facility] Anion Gap 13 12 - 20 [facility] Urea Nitrogen (BUN) 17(H) 9 - 16 mg/dL [facility] Creatinine, Serum 0.56 0.5 - 1.4 mg/dL [facility] Creatinine Clr Calc Pharmacy 106.3 [facility] Comment:Provided height and weight: 162.56 cm,70 kg.eGFR (calculated from the MDRD study equation) and eCrCl(calculated from the Cockcroft-Gault equation) are based ondifferent parameters and may not yield comparable results.If eCrCl result is absurd, please check patient'sheight/weight. Estimated Glomerular Filt Rate >60 [facility] Comment:Chronic Kidney Disea se: Estimated GFR < 60 mL/min/1.47e9Zdilif Kidney Disease: Estimated GFR < 15 mL/min/1.73m2 Glucose 106 60 - 115 mg/dL [facility] Calcium 9.3 8.4 - 10.2 mg/dL [facility] Bilirubin, Total 0.5 0.0 - 1.0 mg/dL [facility] Aspartate Amino Transferase 18 5 - 31 U/L [facility] Alanine Aminotransferase 26 0 - 31 U/L [facility] Total Protein 6.9 6.5 - 8.0 g/dL [facility] Albumin Level 4.0 3.5 - 5.0 g/dL [facility] Alkaline Phosphatase 99 39 - 117 U/L [facility] 12/10/2024 9:11 AM EDT 12/10/2024 9:17 AM EDT us Generic External Data Provider LAB BLOOD ORDERAB LES Final Result [facility] [address] [place] [address] [phone] * BI Mammogram Screening Tomosynthesis Bilateral (07/08/2024 8:32 AM EST) Anatomical Region Laterality Modality Breast Bilateral Mammography 07/08/2024 8:32 AM EST Narrative 07/16/2024 4:10 PM EST ? [facility] [place] ? [address] ?[place] [address] ? Mammography Report ? Signed ? Patient: Alberta Bashir ?MR#: ?? [id number] ? : 1965 ?Acct:[id number] ? Age/Sex: 59 / F ?ADM Date: 07/08/24 ? Loc: HO.MAMMO ? Attending Dr: Alesia Mijares MD ? Ordering Physician: Alesia Sanchez MD ?Re ?? sults: 2Benign Findings ? Date of Service: 07/08/24 ?Follow Up: 1 Year From Orig ?? inal Mammogram ? Procedure(s): MM tomosynthesis screening BI ?? Accession Number(s): [id number] ? cc: Alesia Sanchez MD ? EXAMINATION: ?? MM SCREENING DIGITAL BREAST TOMOSYNTHESIS, BILATERAL ? CLINICAL INFORMATION: ? Screening. Asymptomatic. ? COMPARISON: ?? Mammography: Comparison is made with available priors ? TECHNIQUE: ?? Digital breast mammography with tomosynthesis is performed in both the ?? craniocaudal and mediolateral oblique views along with computer-aided ?? detection (CAD). ? FINDINGS: ?? There are scattered areas of fibroglandular density (ACR BI-RADS breast ?? composition Category b). ?? Left marker clip. ?? There are no significant masses, abnormal calcifications, or other ?? abnormalities. ? MM/MM tomosynthesis screening BI ?? IMPRESSION: ?? No mammographic evidence of malignancy. ? ASSESSMENT: ? BI-RADS BI-RADS 2 - Benign Findings ? RECOMMENDATION: ?? Routine annual mammography screening. ? 1 year F/U ? This examination should not preclude the clinical evaluation of a ?? suspicious palpable abnormality. ? This patient's information was entered into a reminder system with a ?? target due date for their next mammogram. ? Electronically signed by: ??Ligia Jarvis DO ??07/16/2024 04:07 PM EST ? Dictated By: ?Ligia Jarvis DO ? Signed By: ?<Electronically signed by Ligia Jarvis, DO in OV> ? 07/16/24 1607 ? DD/ 0832 ? TD/TT: 07/08/24 0846 ? House Wrecker: ? Procedure Note Johnna, Image - 07/16/2024 [facility] [address] [place] [address] Mammography Report Signed Patient: Higinio Bashir#: [id number] : 1965Acct:[id number] Age/Sex: 59 / FADM Date: 07/08/24 Loc: [place] Attending Dr: Alesia Mijares MD Ordering Physician: Alesia [place] sults: 2Benign Findings Date of Service: 07/08/24Follow Up: 1 Year From Orig inal Mammogram Procedure(s): MM tomosynthesis screening BI Accession Number(s): [id number] cc: Alesia [place] MD EXAMINATION: MM SCREENING DIGITAL BREAST TOMOSYNTHESIS, BILATERAL CLINICAL INFORMATION: Screening. Asymptomatic. COMPARISON: Mammography: Comparison is made with available priors TECHNIQUE: Digital breast mammography with tomosynthesis is performed in both the craniocaudal and mediolateral oblique views along with computer-aided detection (CAD). FINDINGS: There are scattered areas of fibroglandular density (ACR BI-RADS breast composition Category b). Left marker clip. There are no significant masses, abnormal calcifications, or other abnormalities. MM/MM tomosynthesis screening BI IMPRESSION: No mammographic evidence of malignancy. ASSESSMENT: BI-RADS BI-RADS 2 - Benign Findings RECOMMENDATION: Routine annual mammography screening. 1 year F/U This examination should not preclude the clinical evaluation of a suspicious palpable abnormality. This patient's information was entered into a reminder system with a target due date for their next mammogram. Electronically signed by: Ligia Jarvis DO 07/16/2024 04:07 PM EST RP Dictated By: Ligia Jarvis DO Signed By: <Electronically signed by Ligia Jarvis DO in OV> 07/16/24 1607 DD/ 0832 TD/TT: 07/08/24 0846 House Wrecker: Alesia Mijares MD IM BI PROCEDURES Final Result * (ABNORMAL) Lipid Panel, Standard (08/08/2022 8:50 AM EST) Cholesterol, Total 216(H) <200 mg/dL [facility] HDL Cholesterol 57 > OR = 50 mg/dL [facility] Triglycerides 115 <150 mg/dL [facility] LDL Cholesterol 136(H) mg/dL (calc) [facility] Comment: Reference range: <100 Desirable range <100 mg/dL for primary prevention; ?? <70 mg/dL for patients with CHD or diabetic patients with > or = 2 CHD risk factors. LDL-C is now calculated using the Greyson calculation, which is a validated novel method providing better accuracy than the Friedewald equation in the estimation of LDL-C. Nelson BASURTO et al. NICKIE. 2013;310(19): 8331-0101 (http://education.Eloxx/faq/ZRK827) Chol/HDLC Ratio 3.8 <5.0 (calc) [facility] Non-HDL Cholesterol 159(H) <130 mg/dL (calc) [facility] Comment: For patients with diabetes plus 1 major ASCVD risk factor, treating to a non-HDL-C goal of <100 mg/dL (LDL-C of <70 mg/dL) is considered a therapeutic option. 08/08/2022 8:50 AM EST 08/08/2022 8:51 AM EST Narrative [facility] - 08/09/2022 2:47 AM EST FASTING:YES FASTING: YES Keila STYLES LAB BLOOD ORDERABLES Final Re sult [facility] [address], [facility] [place] [address] [facility] [address], [facility] [place] [address] * Hm Colonoscopy (04/10/2018 12:16 PM EDT) Historical Provider HEALTH MAINTENANCE Final Result from Last 3 Months or Most Recently Relevant to Health Maintenance Insurance [employer] AD[place] Care Teams Flight Engineer Instructor Relationship Specialty Start Date End Date Alesia [place] MD [address] [place] [address] PCP - General Internal Medicine 06/10/23 Jesus Bae Community Health Worker 03/11/24 Shu Smith Analytics DirectorPrinting Equipment Mechanic Apprentice 08/17/24
--- OUTSIDE RECORDS SUMMARY | 2024-12-10 10:41 | XMS_ITS | Encounter Summary ---
Author Organization [employer] Address [address] [facility] 7t [place] [address] Care Team Providers Care Black Top Raker Name Role Phone Alesia [place] MD Primary Care Pro vider Jesus Bae Unavailable Unavailable Annette Marcus RN Unavailable [phone] Patria Bae RN Unavailable [phone] Encounter Details Date Type Department Care Team (Late st Contact Info) Description 02/03/2024 Orders Only [facility] [address] [place], [place] [phone] Maico Mooney MD [address] [place], [place] [phone] H. pylori infection (Primary Dx) Social History Tobacco Use Types Packs/Day Years Used Date Smoking Tobacco: Never Smokeless Tobacco: Never Alcohol Use Standard Drinks/Week Comments Never 0 (1 standard drink = 0.6 oz pur e alcohol) Depression Answer Date Recorded Patient Health Questionnaire-9 Score 0 03/10/2023 Housing Stability Answer Date Recorded What is your housing situation today? I have anastasiia sing 06/17/[address] you li [...] Procedure Name Priority Date/Time Associated Diagnosis Comments HELICOBACTER PYLORI AG, EIA, STOOL Routine 02/16/2024 11:30 AM EDT H. pylori infection documented in this encounter Results * Helicobacter pylori??Antigen, EIA, Stool (02/16/2024 11:30 AM EDT) H pylori Ag Stool SEE [facility] Comment:HELICOBACTER PYLORI AG, EIA, STOOL Micro Number: [id number] Test Status: Final Specimen Source: Stool Specimen Quality: Adequate H.pylori Ag: Not Detected Antimicrobials, proton pump inhibitors, and bismuth preparations inhibit H. pylori and ingestion up to two weeks prior to testing may cause false negative results. If clinically indicated the test should be repeated on a new specimen obtained two weeks after discontinuing treatment. Reference Range: Not DetectedTHIS TEST WAS PERFORMED AT:[facility] [place] [id number] JOHNSON MD Stool Rectal contents / Unknown 02/16/2024 11:30 AM EDT 02/16/2024 1:43 PM EDT Maico Mooney MD LAB BODY FLUIDS AND STOOLS ORDER MARISSA Final Result [facility] [address] [place] [address] [phone] documented in this encounter Visit Diagnoses Diagnosis H. pylori infection- Primary Helicobacter pylori (H. pylori) documented in this encounter Additional Health Concerns Assessment Noted Time PHQ-9 Depression Total Score: 0 03/10/20 3:40 PM EDT documented as of this encounter Care Teams Black Top Raker Relationship Specialty Start Date End Date Alesia [place] MD [address] [place] [phone] PCP - General Internal Medicine 06/10/23 Jesus Bae Community Health Worker 03/11/24 Annette Marcus RN [address] [place] [address] Explosive Operator Grenade 03/11/24 04/11/24 Patria Bae RN [address] [place] [address] Explosive Operator Grenade 04/12/24 06/09/24 Shu Smith Explosive Operator GrenadeSole Cutter 08/17/24 documented as of this encounter
--- OUTSIDE RECORDS SUMMARY | 2024-12-10 10:41 | XMS_ITS | Encounter Summary ---
Author Organization [employer] Address [address] [facility] 7t [place] [address] Care Team Providers Care Bagging Salvager Name Role Phone Alesia [place] MD Primary Care Pro vider Jesus Bae Unavailable Unavailable Encounter Details Date Type Department Care Team (Late st Contact Info) Description 12/10/2024 Orders Only GENERIC EXTERNAL DATA DEPARTMENT Provider, Generic External Data Social History Tobacco Use Types Packs/Day Years [...] TROPONIN I Routine 12/10/2024 9:11 AM EDT CBC WITH AUTO DIFFERENTIAL Routine 12/10/2024 9:11 AM EDT PROTHROMBIN TIME-INR Routine 12/10/2024 9:11 AM EDT MAGNESIUM Routine 12/10/2024 9:11 AM EDT COMPREHENSIVE METABOLIC PANEL Routine 12/10/2024 9:11 AM EDT documented in this encounter Results * XR Chest 2 Views (12/10/2024 9:25 AM EDT) Anatomical Region Laterality Modality Chest Radiographic Neli ging 12/10/2024 9:25 AM EDT Narrative 12/10/2024 9:49 AM EDT ? [facility] ?[address] ?[place] [address] ?XRay Report ? Signed ? Patient: Alberta Bashir ?MR#: ?? [id number] ? : 1965 ?Acct:[id number] ? Age/Sex: 59 / F ?ADM Date: 12/10/24 ? Loc: HO.ED ? Attending Dr: ? Ordering Physician: Generic ED Physician ?? Date of Service: 12/10/24 ?? Procedure(s): XR chest 2V ?? Accession Number(s): [id number] ? cc: Generic ED Physician; Alesia [place] [...] MD in OV> ?12/10/24 0946 ? DD/ 4 ? TD/TT: 12/10/2430 ? Second Chef: MSM ? Procedure Note Flor Oropeza - 12/10/[address] [address] XRay Report Signed Patient: Berhane Higinio Montesinos#: [id number] : 1965Acct:[id number] Age/Sex: 59 / FADM Date: 12/10/24 Loc: HO.ED Attending Dr: Ordering Physician: Generic ED Physician Date of Service: 12/10/24 Procedure(s): XR chest 2V Accession Number(s): [id number] cc: Generic ED Physician; Alesia [place] MD [...] Erwin Lockhart MD 12/10/2024 09:46 AM EDT RP Dictated By: Erwin Lockhart MD Signed By: <Electronically signed by Erwin Lockhart MD in OV> 12/10/[address] DD/ 4 TD/TT: 12/10/24929 Second Chef: YESSENIA [facility] External Provider IMG XR PROCEDURES Final Result * Slide Review (12/10/2024 9:11 AM EDT) Slide Review VERIFIED [facility] 12/10/2024 9:11 AM EDT 12/10/2024 9:17 AM EDT Generic External Data Provider LAB BLOOD ORDERAB LES Final Result [facility] [address] [place] [phone] * High Sensitivity Troponin I (12/10/2024 9:11 AM EDT) TROPONIN I HIGH SENSITIVITY <2.7 <3.5 - 17.0 ng/L [facility] Comment:The Cár[place] high sens itivity Troponin-I results should beused in conjunction with other diagnostic information suchas ECG, clinical observations and information, and patientsymptoms to aid in the diagnosis of [place]. 12/10/2024 9:11 AM EDT 12/10/2024 9:17 AM EDT Generic External Data Provider LAB BLOOD ORDERAB LES Final Result Performing Organization Address City/[facility]/ZIP Co de Phone Number [facility] [address] [place] [address] [phone] * Magnesium (12/10/2024 9:11 AM EDT) Pathologist [facility] Magnesium 2.0 1.6 - 2.6 mg/dL [facility] 12/10/2024 9:11 AM EDT 12/10/2024 9:17 AM EDT Generic External Data Provider LAB BLOOD ORDERAB LES Final Result Performing Organization Address [facility] Co de Phone Number [facility] [address] [place] [address] [phone] * (ABNORMAL) Comprehensive Metabolic Panel (12/10/2024 9:11 AM EDT) Pathologist [facility] Sodium 142 135 - 145 mmol/L [facility] Potassium 3.6 3.3 - 5.1 mmol/L [facility] Chloride 107 96 - 108 mmol/L [facility] Carbon Dioxide 26 22 - 29 mmol/L [facility] Anion Gap 13 12 - 20 [facility] Urea Nitrogen (BUN) 17(H) 9 - 16 mg/dL [facility] Creatinine, Serum 0.56 0.5 - 1.4 mg/dL [facility] Creatinine Clr Calc Pharmacy 106.3 [facility] Comment:Provided height and weight: 162.56 cm,70 kg.eGFR (calculated from the MDRD study equation) and eCrCl(calculated from the Cockcroft-Gault equation) are based ondifferent parameters and may not yield comparable results.If eCrCl result is absurd, please check patient'sheight/weight. Estimated Glomerular Filt Rate >60 [facility] Comment:Chronic Kidney Disea se: Estimated GFR < 60 mL/min/1.87e2Bebfuw Kidney Disease: Estimated GFR < 15 mL/min/1.73m2 Glucose 106 60 - 115 mg/dL [facility] Calcium 9.3 8.4 - 10.2 mg/dL [facility] Bilirubin, Total 0.5 0.0 - 1.0 mg/dL [facility] Aspartate Amino Transferase 18 5 - 31 U/L [facility] Alanine Aminotransferase 26 0 - 31 U/L [facility] Total Protein 6.9 6.5 - 8.0 g/dL [facility] Albumin Level 4.0 3.5 - 5.0 g/dL [facility] Alkaline Phosphatase 99 39 - 117 U/L [facility] 12/10/2024 9:11 AM EDT 12/10/2024 9:17 AM EDT Generic External Data Provider LAB BLOOD ORDERAB LES Final Result Performing Organization Address [facility] Co de Phone Number [facility] [address] [place] [phone] * (ABNORMAL) Prothrombin Time-INR (12/10/2024 9:11 AM EDT) Prothrombin Time 10.6(L) 10.9 - 12.4 SEC [facility] INTERNATIONAL NORM RATIO 0.9 0.9 - 1.1 [facility] Comment:INTERNATIONAL NORMAL IZED RATIO (INR) [...] ORDERAB LES Final Result Performing Organization Address [facility] Co de Phone Number [facility] [address] [place] [phone] * (ABNORMAL) CBC auto differential (12/10/2024 9:11 AM EDT) White Blood Count 13.0(H) 4.8 - 10.8 X10*3/uL [facility] Red Blood Count 4.74 4.20 - 5.50 X10*6/uL [facility] Hemoglobin 13.7 12.0 - 16.0 g/dl [facility] Hematocrit 40.3 37.0 - 47.0 % [facility] Mean Corpuscular Volume 85.0 80.0 - 98.0 fL [facility] Mean Corpuscular Hemoglobin 28.9 27.0 - 33.0 pg [facility] Mean Corpuscular HGB Conc 34.0 31.0 - 35.0 g/dl [facility] Red Cell Distribution Width 13.2 11.0 - 16.0 % [facility] Platelet Count 255 160 - 400 X10*3/uL [facility] Mean Platelet Volume 8.9(L) 9.4 - 12.3 fL [facility] Neutrophils Percent Auto 49.7 45 - 73 % [facility] Imm Gran Pct Auto 0.5(H) 0.0 - 0.4 % [facility] Lymphocytes Percent Auto 42.0(H) 20 - 40 % [facility] Monocytes Percent Auto 6.7 2 - 11 % [facility] Eosinophils Percent Auto 0.5 0 - 4 % [facility] Basophils Percent Auto 0.6 0 - 2 % [facility] NRBC Pct Auto 0.0 0.0 - 0.2 /100WBC [facility] Neutrophils Absolute Auto 6.5 2.0 - 8.3 x10*3/uL [facility] Imm Gran Abs Auto 0.06(H) 0.00 - 0.03 X10*3/uL [facility] Lymphocytes Absolute Auto 5.5(H) 1.2 - 4.9 X10*3/uL [facility] Monocytes Absolute Auto 0.9 0.1 - 1.2 X10*3/uL [facility] Eosinophils Absolute Auto 0.1 0.0 - 0.4 X10*3/uL [facility] Basophils Absolute Auto 0.1 0.0 - 0.2 X10*3/uL [facility] NRBC Abs Auto 0.000 0.0 - 0.012 X10*3/uL [facility] 12/10/2024 9:11 AM EDT 12/10/2024 9:17 AM EDT us Generic External Data Provider LAB BLOOD ORDERAB LES Edited Result - Final [facility] [address] [place] [phone] documented in this encounter Visit Diagnoses Not on filedocumented in this encounter Additional Health Concerns Assessment Noted Time PHQ-9 Depression Total Score: 12 024 11:20 AM EDT documented as of this encounter Care Teams Bagging Salvager Relationship Specialty Start Date End Date Alesia [place] MD [address] [place] [address] PCP - General Internal Medicine 06/10/23 Jesus Bae Community Health Worker 03/11/24 Shu Smith Broom BundlerElementary Education Teacher 08/17/24 documented as of this encounter
--- OUTSIDE RECORDS SUMMARY | 2024-12-10 10:41 | XMS_ITS | Encounter Summary ---
Author Organization [employer] Address [address] [facility] 7t [place] [address] Care Team Providers Care Marketing Officer Name Role Phone Alesia [place] MD Primary Care Pro vider Jesus Bae Unavailable Unavailable Reason for Visit * Reason Comments Med Refill Encounter Details Date Type Department Care Team (Late st Contact Info) Description 12/08/2024 Refill [facility] [address] [place], [place] [phone] Alesia Sanchez MD [address] [place] [address] Mild intermittent asthma without complication; Other constipation Social History Tobacco Use Types Packs/Day Years [...] documented as of this encounter Visit Diagnoses Diagnosis Mild intermittent asthma without complication Other constipation documented in this encounter Additional Health Concerns Assessment Noted Time PHQ-9 Depression Total Score: 12 024 11:20 AM EDT documented as of this encounter Care Teams Marketing Officer Relationship Specialty Start Date End Date Alesia [place] MD [address] [place] [phone] PCP - General Internal Medicine 06/10/23 Jesus Bae Community Health Worker 03/11/24 Shu Smith Sales Representative Girls' ApparelAdmeasurer 08/17/24 documented as of this encounter
--- OUTSIDE RECORDS SUMMARY | 2024-12-10 10:41 | XMS_ITS | Encounter Summary ---
Author Organization [employer] Address [address] [facility] [address]t [place] [address] Care Team Providers Care Seal Skinner Name Role Phone Alesia [place] MD Primary Care Pro vider Jesus Bae Unavailable Unavailable Annette Marcus RN Unavailable [phone] Patria Bae RN Unavailable [phone] Reason for Visit * Reason Comments Med Refill Encounter Details Date Type Department Care Team (Late st Contact Info) Description 06/20/2023 Refill [facility] [address] [place] [address] Myriam Hicks FNP [address] [place] [address] Dept [place] [address] Social History Tobacco Use Types Packs/Day Years [...] documented as of this encounter Care Teams Seal Skinner Relationship Specialty Start Date End Date Alesia [place] MD [address] [place] [phone] PCP - General Internal Medicine 06/10/23 Jesus Bae Community Health Worker 03/11/24 Annette Marcus RN [address] [place] [address] Motor Driver 03/11/24 04/11/24 Patria Bae RN [address] [place] [address] Motor Driver 04/12/24 06/09/24 Shu Smith Motor DriverRn Charge 08/17/24 documented as of this encounter
--- OUTSIDE RECORDS SUMMARY | 2024-12-10 10:41 | XMS_ITS | Encounter Summary ---
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 Name Role Phone Sheng Farr NP Primary Care Provider [phone] Reason for Referral * Consultation (Routine) - Authorized Specialty Diagnoses / Procedures Referred By Contgertrude t Referred To Contact Neurology Diagnoses Migraine aura without headache TIA (transient ischemic attack) Sheng Farr NP [address] [place] [id number] Phone: tel: fax:[phone] Shelby Forrester MD [address] [place] [address] [place] [address] Phone: tel: fax: Referral ID Status Reason Start Date Expiration Date Visits Requested Visits Authorized [id number] Authorized Specialty Services Required 12/07/2024 12/07/2025 1 1 Scheduling Instructions Intractable left sided migraine, Neurology appointment KASEY for possible TIA Encounter Details Date Type Department Care Team (Late st Contact Info) Description 12/07/2024 10:30 AM EDT Office Visit [facility] [address] [place] [address] Sheng Farr NP [address] [place] [id number] Migraine aura without headache (Primary Dx); TIA (transient ischemic attack); Migraine with aura and without status migrainosus, not intractable Social History Tobacco Use Types Packs/Day Years Used Date Smoking Tobacco: Never Comments Unknown Sex and Gender Information Value Date Recorded Sex Assigned at Not on file Legal Sex Female 4:17 AM EST Gender Identity Not on file Sexual Orientation Not on file documented as of this encounter Last Filed Vital Signs Vital Sign Reading Time Taken Comments Blood Pressure 108/61 12/07/2024 12:48 PM EDT Pulse 74 12/07/2024 12:48 PM EDT rhythm regular Temperature 36.7 ??C (98.1 ??F) 12/07/2024 1 2:48 PM EDT Respiratory Rate 18 12/07/2024 12:4 8 PM EDT Oxygen Saturation 96% 12/07/2024 12: 48 PM EDT on room air Inhaled Oxygen Concentration - - Weight 72.1 kg (159 lb) 12/07/2024 12:4 8 PM EDT Height - - Body Mass Index - - documented in this encounter Progress Notes * Sheng Farr NP - 12/07/2024 12:59 PM EDTAssociated Problem(s): Migraine with aura and without status migrainosus, not intractable Left sided migraine 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 Dougie started her trial of Sumatriptan 100 mg tablets; take 1 tablet by mouth at the onset of migraine, orally, repeat in 4 hours asneeded for total of twice daily. She states took two doses and about 40 minutes later she began having increased blurry vision in her left eye, dysarthria, left sided weakness, nausea and vomiting. She states she rested and all aforementioned symptoms resolved, save for her headache that he rates at a 9/10 in the left side during this encounter. Plan: Dougie denied taking any NSAIDS today for her TAVERAS. Dougie agreed to Ketorolac IM injection. Ketorolac 30 mg IM in left deltoid. D/C's Sumatriptan and ordered a Neurology follow-up with her regular neurologist she has been seeing since 2012. On exam, noevidence of stroke, CN's II-XII are grossly intact, no focal neuro deficits. * Sheng Farr NP - 12/07/2024 10:30 AM EDT Subjective Patient ID: Alberta Montesinos is a 59 y.o. female. VALDEMAR Par presents to clinic with CC of migraine TAVERAS, left side with Aural. She states she always gets a eye blinking that is persistent in the left eye that comes on before her TAVERAS. He describes her TAVERAS as aintense aching pain., photophobia, Hyperacusis. She rates her pain at 9/10, not the worse TAVERAS she has ever had. She states she started the new medication, sumatriptan and about 40 minutes later she began feeling left sided weakness, worsening left eye blurriness, short episode of dysarthria and nausea with vomiting. She endorses that all of her symptoms resolved but still has her headache. She denies any further left sided weakness, she states her left eye has always had worse vision than her right eye. She has been tolerating liquids and little food since yesterday. She denies taking any NSAIDS for her TAVERAS. She denies any fever, chills, runny nose, congestion, ST, cough, CP, palpitations, ABD pain, N/C/D, melena or lukasz bleeding per rectum. Review of Systems Objective Physical Exam Constitutional: General: She is not in acute distress. Appearance: She is normal weight. She is not ill-appearing, toxic-appearing or diaphoretic. Comments: Clinic room is kept narinder,, she is holding an ice pack to the left side of her head, deniesfalls or trauma. HENT: Head: Normocephalic and atraumatic. Right Ear: Tympanic membrane, ear canal and external ear normal. There is no impacted cerumen. Left Ear: Tympanic membrane, ear canal and external ear normal. There is no impacted cerumen. Nose: Nose normal. No congestion or rhinorrhea. Mouth/Throat: Mouth: Mucous membranes are moist. Pharynx: Oropharynx is clear. No oropharyngeal exudate or posterior oropharyngeal erythema. Eyes: General: No scleral icterus. Right eye: No discharge. Left eye: No discharge. Extraocular Movements: Extraocular movements intact. Conjunctiva/sclera: Conjunctivae normal. Pupils: Pupils are equal, round, and reactive to light. Neck: Vascular: No carotid bruit. Cardiovascular: Rate and Rhythm: Normal rate and regular rhythm. Pulses: Normal pulses. Heart sounds: Normal heart sounds. No murmur heard. No friction rub. No gallop. Pulmonary: Effort: Pulmonary effort is normal. No respiratory distress. Breath sounds: Normal breath sounds. No stridor. No wheezing, rhonchi or rales. Chest: Chest wall: No tenderness. Abdominal: General: Abdomen is flat. Bowel sounds are normal. There is no distension. Palpations: Abdomen is soft. There is no mass. Tenderness: There is no abdominal tenderness. There is no right CVA tenderness, left CVA tenderness, guarding or rebound. Hernia: No hernia is present. Musculoskeletal: General: No swelling, tenderness, deformity or signs of injury. Normal range of motion. Cervical back: Normal range of motion and neck supple. No rigidity or tenderness. Right lower leg: No edema. Left lower leg: No edema. Comments: Strengths are 5/5 x 4 extremities Lymphadenopathy: Cervical: No cervical adenopathy. Skin: General: Skin is warm and dry. Capillary Refill: Capillary refill takes less than 2 seconds. Coloration: Skin is not jaundiced or pale. Findings: No bruising, erythema, lesion or rash. Neurological: General: No focal deficit present. Mental Status: She is alert and oriented to person, place, and time. Mental status is at baseline. Cranial Nerves: No cranial nerve deficit. Sensory: No sensory deficit. Motor: No weakness. Coordination: Coordination normal. Gait: Gait normal. Deep Tendon Reflexes: Reflexes normal. Psychiatric: Mood and Affect: Mood normal. Behavior: Behavior normal. Thought Content: Thought content normal. Judgment: Judgment normal. 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 Par started her trial of Sumatriptan 100 mg tablets; take 1 tablet by mouth at the onset of migraine, orally, repeat in 4 hours asneeded for total of twice daily. She states took two doses and about 40 minutes later she began having increased blurry vision in her left eye, dysarthria, left sided weakness, nausea and vomiting. She states she rested and all aforementioned symptoms resolved, save for her headache that he rates at a 9/10 in the left side during this encounter. Plan: Dougie denied taking any NSAIDS today for her TAVERAS. Dougie agreed to Ketorolac IM injection. Ketorolac 30 mg IM in left deltoid. D/C's Sumatriptan and ordered a Neurology follow-up with her regular neurologist she has been seeing since 2012. On exam, noevidence of stroke, CN's II-XII are grossly intact, no focal neuro deficits. documented in this encounter Plan of Treatment Upcoming Encounters Date Type Department Care Team (Late st Contact Info) Description 12/29/2024 8:45 AM EDT Consult Orthopedic Surgery - [place] [id number] [address] Alexander Asencio, DPM [address] [address] 12/29/2024 12:20 PM EDT Clinical Support [address] [id number] Scheduled Referrals Name Type Priority Associated Diagnoses Order Schedule Ambulatory referral to Neurology Outpatient Referral Routine Migraine aura without headache TIA (transient ischemic attack) Expected: 12/14/2024 (Approximate), Expires: 12/07/2025 documented as of this encounter Visit Diagnoses Diagnosis Migraine aura without headache- Primary Migraine with aura, without mention of intractable migraine without mention of status migrainosus TIA (transient ischemic attack) Unspecified transient cerebral ischemia Migraine with aura and without status migrainosus, not intractable documented in this encounter Discontinued Medications Medication Sig Discontinue Reason Start Date End Da te SUMAtriptan (IMITREX) 100 mg tabletIndications:Gerson wray with aura and without status migrainosus, not intractable Take 1 tablet (100 mg total) by mouth See administration instructions. Take 1 tablet by mouth at the onset of migraine, orally, repeat in 4 hours as needed for total of twice daily. Do not take more then two tablets in 24 hours. Therapy completed 11/25/2024 12/07/2024 documented as of this encounter Orders Medications Ordered That Gerson ht Not Have Been Administered Count Last Ordered Date First Ordered Date ketorolac (TORADOL) injection 30 mg 1 12/07 documented in this encounter Care Teams Market [employer] Worker Relationship Specialty Start Date End Date Sheng Farr NP [address] [place] [address] PCP - General PACE 11/02/24 documented as of this encounter
--- OUTSIDE RECORDS SUMMARY | 2024-12-10 10:41 | XMS_ITS | Clinical Summary ---
Author Organization [facility] Address [address] [place] [address] Phone Care Team Providers Care Engine Service Repairer Name Role Phone Kirstin Farr NP Primary Care Provider [phone] Allergies Active Allergy Reactions Criticality Noted Date Comments Sumatriptan Succinate Nausea And Vomiting,Weakness Medium 12/08/2024 Left hemisphere weakness and expressive aphasia Medications ipratropium HFA (ATROVENT HFA) 17 mcg/actuation inhalerIndication s:Chronic obstructive pulmonary disease, unspecified COPD type (CMS/HCC V24, CMS/HCC V28) Inhale 2 puffs by mouth 4 (four) times a day if needed for wheezing or shortness of breath. 12.9 g 11/02/192025 Active amitriptyline (ELAVIL) 100 mg tabletIndications :Primary hypertension Take 1 tablet (100 mg total) by mouth at bedtime. 30 each 11/02/19 25 2025 Active atorvastatin (LIPITOR) 40 mg tabletIndications :Mixed hyperlipidemia Take 1 tablet (40 mg total) by mouth 1 (one) time each day. 30 each 11/02/19 25 2025 Active dilTIAZem CD (CARDIZEM CD) 240 mg 24 hr capsuleIndication s:Tachycardia Take 1 capsule (240 mg total) by mouth 1 (one) time each day. 30 each 11 03/03/2025 Active DULoxetine (CYMBALTA) [address] capsuleIndication s:Depression, unspecified depression type Take 1 capsule (60 mg total) by mouth 1 (one) time each day with dinner. Do not crush or chew. 30 each 11/02/19 25 2025 Active furosemide (LASIX) 40 mg tabletIndications :Primary hypertension Take 1 tablet (40 mg total) by mouth 1 (one) time each day after breakfast. 30 each 11/02/19 25 2025 Active gabapentin (NEURONTIN) 300 mg capsuleIndication s:RLS (restless legs syndrome) Take 1 capsule (300 mg total) by mouth at bedtime. 30 each 11/02/19 25 2025 Active montelukast (SINGULAIR) 10 mg tabletIndications :Chronic obstructive pulmonary disease, unspecified COPD type (CMS/HCC V24, CMS/HCC V28) Take 1 tablet (10 mg total) by mouth 1 (one) time each day in the morning. 30 each 11/02/19 25 2025 Active topiramate (TOPAMAX) 50 mg tabletIndications :Migraine without status migrainosus, not intractable, unspecified migraine type Take 1 tablet (50 mg total) by mouth 2 (two) times a day. 60 each 11/02/19 25 2025 Active cholecalciferol (VITAMIN D-3) 50 mcg (2,000 unit) capsuleIndication s:Vitamin D deficiency Take 1 capsule (2,000 Units total) by mouth 1 (one) time each day. 30 each 11/30/19 25 2025 Active docusate sodium (COLACE) 100 mg capsuleIndication s:Constipation, unspecified constipation type Take 1 capsule (100 mg total) by mouth 2 (two) times a day. 56 each 11/30/19 25 2025 Active SUMAtriptan (IMITREX) 100 mg tabletIndications :Migraine with aura and without status migrainosus, not intractable Take 1 tablet (100 mg total) by mouth See administration instructions. Take 1 tablet by mouth at the onset of migraine, orally, repeat in 4 hours as needed for total of twice daily. Do not take more then two tablets in 24 hours. 60 tablet 3 11/26/19 25 2024 Discontin ued(Thera py completed ) predniSONE (DELTASONE) 20 mg tabletIndications :Migraine with aura and without status migrainosus, not intractable Take 3 tabs (60mg) daily for 3 days, then take 2 tabs (40mg) daily for 2 days, then take 1 tab (20mg) daily for 2 days, as directed for 7 days. 21 tablet 11/26/19 25 2024 Hospital, Clinic, or Other Facility Administered Medication Ordered Dose Route Frequency Start Date End Date Status fluticasone furoate-vilanteroL (BREO ELLIPTA) 100-25 mcg/dose inhaler 1 puffIndications:Ch ronic obstructive pulmonary disease, unspecified COPD type (CMS/HCC V24, CMS/HCC V28) 1 puff inhl Daily after breakfast 11/02/2024 6 Active lidocaine (XYLOCAINE) 1 % injection 10 mLIndications:Adhe sive capsulitis of left shoulder 10 mL inj Once 11/05/2024 Active triamcinolone acetonide (KENALOG-40) 40 mg/mL injection 40 mgIndications:Adhe sive capsulitis of left shoulder 40 mg IAtc Once 11/05/2024 Active ketorolac (TORADOL) injection 30 mgIndications:Migr hanny aura without headache 30 mg IM Once 12/07/2024 5 Active docusate sodium (COLACE) capsule 100 mgIndications:Cons tipation, unspecified constipation type 100 mg oral 2 times daily 11/01/2024 5 Discontinued cholecalciferol (VITAMIN D-3) capsule 2,000 UnitsIndications:V itamin D deficiency 2000 Units oral Daily 11/01/2024 5 Discontinued Active Problems Problem Noted Date Diagnosed Date Essential hypertension 11/11/2024 Overview (11/11/2024): Normotensive this encounter, will continue to monitor. Osteoarthritis of both shoulders 11/11/2024 Overview (11/11/2024): Chronic condition, stable. Anxiety 11/11/2024 Overview (11/11/2024): Chronic intermittent condition, currently stable, will continue current medications and monitor. Fibromyalgia 11/11/2024 Overview (11/11/2024): Chronic intermittent diffuse myalgias, currently in remission , will continue current medications and monitor. Chest pain due to GERD 11/11/2024 Overview (11/11/2024): Chronic intermittent condition, currently stable, will continue to monitor. Simple chronic bronchitis (CMS/HCC V24, CMS/HCC V28) 11/11/2024 Overview (11/11/2024): Chronic condition, currently in remission, well maintained on medication. Migraine with aura and witho ut status migrainosus, not intractable 11/04/2024 Overview (11/04/2024): Dougie's migraine management has been with - - Dr. Shelby Roe, Neurologist. She is on Amitriptyline 100 mg PO QHS and Topiramate 50 mg tablets; 2 tabs PO in the am and pm; currently well managed, will continue to monitor. Assessment & Plan (12/07/2024 12:59 PM EDT): Left sided migraine 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 Dougie started her trial of Sumatriptan 100 mg tablets; take 1 tablet by mouth at the onset of migraine, orally, repeat in 4 hours as needed for total of twice daily. She states [...] has been seeing since 2012. On exam, no evidence of stroke, CN's II-XII are grossly intact, no focal neuro deficits. Assessment & Plan (11/25/2024 5:20 PM EDT): Migraine with aura: Most recent Neurology appointment last week (11/18/24). Plan: Continue topiramate and amitriptyline for migraine prophylaxis. Continue abortive therapy with sumatriptan 100 mg; take one tablet by mouth at onset of migraine, every 4 hours up to twice daily. Start prednisone 20 mg tablet, 20 mg, 3 tabs X 3 days, 2 tabs X 2 days, 1 tab X 2 days orally, as directed for 7 days. Use and side effects reviewed. Labs ordered at previous visit. Assessment & Plan (11/04/2024 1:57 PM EST): Leanders migraine management has been with - - Dr. Shelby Roe, Neurologist. She is on Amitriptyline 100 mg PO QHS and Topiramate 50 mg tablets; 2 tabs PO in the am and pm; currently well managed, will continue to monitor. Moderate persistent asthma with acute exacerbati on 11/04/2024 Overview (11/04/2024): Dougie's asthma is managed by Pulmonology, Dr. Jordan Roman MD at [facility]. She gets once monthly injections of Tezspire, takes Atrovent HFA 17 mcg HFA; 2 puffs QID. Incruse Ellipta 62.5 mcg daily in am. Montelukast 10 mg PO every evening. ML will reach out to Dr. Roman's office to get schedule of injections and work out schedule to continue. Dougie's asthma is currently well controlled. Assessment & Plan (11/04/2024 1:57 PM EST): Dougie's asthma is managed by Pulmonology, Dr. Jordan Roman MD at [facility]. She gets once monthly injections of Tezspire, takes Atrovent HFA 17 mcg HFA; 2 puffs QID. Incruse Ellipta 62.5 mcg daily in am. Montelukast 10 mg PO every evening. ML will reach out to Dr. Roman's office to get schedule of injections and work out schedule to continue. Dougie's asthma is currently well controlled. Mixed hyperlipidemia 11/04/2024 Overview (11/04/2024): Dougie's hyperlipidemia is managed with atorvastatin 40 mg PO QD, labs collected today, will review and continue current regimen with changes as needed. Assessment & Plan (11/04/2024 1:56 PM EST): Dougie's hyperlipidemia is managed with atorvastatin 40 mg PO QD, labs collected today, will review and continue current regimen with changes as needed. Diastolic congestive heart f ailure, unspecified HF chronicity (CMS/[facility] V24, [facility] V28) 11/04/2024 Assessment & Plan (11/04/2024 11:32 AM EST): Dougie comes to with diagnosis of diastolic heart failure. She is on Furosemide 40 mg PO QD in the am. Her assembly stock supervisor is Dr. Ti Og MD. is reaching to Dr. Og's office to get past notes, testing and if any future testing has been requested. Dougie appears euvolemic on exam, VSS, labs collected during this visit, will continue to monitor. Bipolar affective disorder, remission status unspecified ([facility] V24, [facility] V28) 11/04/2024 Assessment & Plan (11/04/2024 12:00 PM EST): Dougie is currently on Duloxetine DR 60 mg PO QD. Last PHQ-9 in the fall of 2023 was 12, FREDDY 9, No SI. In clinic during this encounter, Dougie endorses her Bipolar depression is well managed and denies any SI, will continue current medications and monitor. Other constipation 11/04/2024 Overview (11/04/2024): oDugie endorses long history of constipation. She is on Colace 100 mg PO BID. ML will reach out to her manager generation office for notes, pending tests: EGD & Colonoscopy in November 2024. Dougie is in no distress this visit, will continue current medications and monitor. Assessment & Plan (11/04/2024 1:58 PM EST): Dougie endorses long history of constipation. She is on Colace 100 mg PO BID. ML will reach out to her manager generation office for notes, pending tests: EGD & Colonoscopy in November 2024. Dougie is in no distress this visit, will continue current medications and monitor. Adhesive capsulitis of left shoulder 11/04/2024 Overview (11/04/2024): Dougie stated her left shoulder pain started about 3 to 4 years ago out of the blue. X-ray left shoulder on 05/14/24: FINDINGS: The bones and soft tissues are normal. No fracture. Glenohumeral and acromioclavicular alignment is anatomic with normal joint space. No abnormal soft tissue calcifications. XR/XR shoulder LT min 2V IMPRESSION: Normal left shoulder. Par provided verbal consent for corticosteroid injection left shoulder during this encounter. Lidocaine 1% plain 100 mg/10 ml mixed with Triamcinolone 40 mg/ml. Chlorhexidene prep to posterior left shoulder, allowed to dry for one minute. Ethyl Chloride topica spray for analgesia applied. #22 1 1/2 needle introduced into the left subacromial space, no resistance to infiltration Stopped after 2ml, aspirated syringe, no aspirate appreciated. Continued infiltration to completion, needle removed and Band Aid dressing applied. Dougie's left shoulder brought through passive ROM, Par was pain free. Successful corticosteroid injection left shoulder, will refer to PT and monitor. Assessment & Plan (11/04/2024 1:57 PM EST): Dougie stated her left shoulder pain started about 3 to 4 years ago out of the blue. X-ray left shoulder on 05/14/24: FINDINGS: The bones and soft tissues are normal. No fracture. Glenohumeral and acromioclavicular alignment is anatomic with normal joint space. No abnormal soft tissue calcifications. XR/XR shoulder LT min 2V IMPRESSION: Normal left shoulder. Par provided verbal consent for corticosteroid injection left shoulder during this encounter. Lidocaine 1% plain 100 mg/10 ml mixed with Triamcinolone 40 mg/ml. Chlorhexidene prep to posterior left shoulder, allowed to dry for one minute. Ethyl Chloride topica spray for analgesia applied. #22 1 /2 needle introduced into the left subacromial space, no resistance to infiltration Stopped after 2ml, aspirated syringe, no aspirate appreciated. Continued infiltration to completion, needle removed and Band Aid dressing applied. Dougie's left shoulder brought through passive ROM, Par was pain free. Successful corticosteroid injection left shoulder, will refer to PT and monitor. Healthcare maintenance 11/04/2024 Assessment & Plan (11/04/2024 2:35 PM EST): Dougie's vaccination history includes COVID-19 X 5, TDAP 2011, TD 2021, Shringrix X 2, Hep B X 1. Last Colonoscopy in 2017, next pending scheduling in 2024, last mammogram July 2024. Will order Hep B 2nd shot, and Pneumovax and continue to monitor. Atopic dermatitis in adult 11/04/2024 Overview (11/25/2024): >>OVERVIEW FOR XEROSIS CUTIS WRITTEN ON 11/04/2024 12:07 PM BY KIRSTIN FARR NP Dougie endorses her left heel dry cracked skin and pain with weight baring has been going on for about one year. She endorses she has cream at home that helps a little but still hurts to walk on. On exam, the lateral right heel is erythemic, skin is dry and cracked. Will continue Eucerin cream and betamethasone 0.1% cream and order referral to Podiatry. Assessment & Plan (11/25/2024 5:19 PM EDT): >>ASSESSMENT AND PLAN FOR XEROSIS CUTIS WRITTEN ON 11/04/2024 1:56 PM BY KIRSTIN FARR NP Dougie endorses her left heel dry cracked skin and pain with weight baring has been going on for about one year. She endorses she has cream at home that helps a little but still hurts to walk on. On exam, the lateral right heel is erythemic, skin is dry and cracked. Will continue Eucerin cream and betamethasone 0.1% cream and order referral to Podiatry. Assessment & Plan (11/25/2024 5:18 PM EDT): Atopic Dermatitis: Dry thickened skin over bilateral heels, without erythema or radiating heat. Bilateral feet soaked in warm water, silicone lotion applied to bilateral heels and massaged into skin, socks applied to lock moisture in, par told to do this twice a day to relieve skin cracking. Participant stated understanding and agreed with the plan. Encounters Date Type Department Care Team Description 12/07/2024 10:30 AM EDT Office Visit [address] [phone] Kirstin Farr, BRENDA Migraine aura without headache (Primary Dx); TIA (transient ischemic attack); Migraine with aura and without status migrainosus, not intractable 12/07/[address] [phone] Nicolasa Cobian RN 11/25/2024 1:00 PM EDT Office Visit [address] [phone] Kirstin Farr NP Migraine with aura and without status migrainosus, not intractable (Primary Dx); Atopic dermatitis in adult 11/25/2024 12:45 PM EDT Treatment [facility] Physical Therapy [address] [place] [phone] Anneliese Fraire, ORCHESTRA TEACHER 11/23/2024 9:00 AM EDT Treatment [facility] Physical Therapy [address] [place] [phone] Anneliese Fraire, ORCHESTRA TEACHER 11/15/2024 11:00 AM EDT Clinical Support [address] [phone] Josee Samayoa, RN Healthcare maintenance (Primary Dx) 11/15/2024 10:00 AM EDT Treatment [facility] Therapy [address] [place] [phone] Fozia Berg, PT 11/12/2024 10:00 AM EDT Treatment [facility] Physical Therapy [address] [place] [phone] Fozia Berg, PT 11/09/2024 7:30 AM EDT Clinical Support [address] [phone] Rosario Santana LPN 11/04/2024 10:45 AM EST PACE Assessment [address] [phone] Kirtsin Farr NP Hernandez, Nancy, RN Healthcare maintenance (Primary Dx); Migraine without aura and without status migrainosus, not intractable; Moderate persistent asthma with acute exacerbation; Mixed hyperlipidemia; Diastolic congestive heart failure, unspecified HF chronicity ([facility] V24, [facility] V28); Bipolar affective disorder, remission status unspecified ([facility] V24, [facility] V28); Other constipation; Adhesive capsulitis of left shoulder; Xerosis cutis; Essential hypertension; Primary osteoarthritis of both shoulders; Anxiety; Fibromyalgia; Chest pain due to GERD; Simple chronic bronchitis ([facility] V24, [facility] V28) 11/04/2024 Plan of Care Documentation [address] [phone] 11/03/2024 1:30 PM EST Evaluation [facility] [address] [place] [phone] Fozia Berg, PT Diastolic congestive heart failure, unspecified HF chronicity ([facility] V24, [facility] V28); Bipolar affective disorder, remission status unspecified ([facility] V[facility], [facility] V28) from Last 3 Months Immunizations Name Administration Dates Next Due Hepatitis B (Recombivax HB-D ialysis) 18yo and older 11/04/2024(Deferred: Other - JUST ORDERED NOT IN STOCK) Pneumococcal polysaccharide 23 valent (Pneumovax 23) 2yo and older 11/04/2024(Deferred: Other - JUST ORDERED NOT IN STOCK) Surgical History Surgery Date Site/Laterality Comments HYSTERECTOMY Medical History Medical History Date Comments Asthma COPD (chronic obstructive pulmonary disease) ([facility] V24, [facility] V28) CHF (congestive heart failure) ([facility] V24, CMS /[facility] V28) GERD (gastroesophageal reflux disease) Headache Arthritis Social History Tobacco Use Types Packs/Day Years Used Date Smoking Tobacco: Never Tobacco Cessation:Counseling Given: Not Answered Comments Unknown Sex and Gender Information Value Date Recorded Sex Assigned at Not on file Legal Sex Female 4:17 AM EST Gender Identity Not on file Sexual Orientation Not on file Obstetrics History Last Filed Vital Signs Vital Sign Reading [...] - - Body Mass Index - - Plan of Treatment Upcoming Encounters Date Type Department Care Team (Late st Contact Info) Description 12/29/2024 8:45 AM EDT Consult Orthopedic Surgery - [place] [address] [phone] Alexander Asencio, DPM [address] [address] 12/29/2024 12:20 PM EDT Clinical Support [facility] [address] [place] [phone] Health Maintenance Due Date Last Done Comments Breast Cancer Screening 1967 Cervical Cancer Screening: Pap Smear 1988 Hepatitis B Vaccines (2 of 3 - 19+ 3-dose series) 04/07/2023 03/10/2023 Colorectal Cancer Screening: Colonoscopy 10/28/2024 HIV Screening 10/28/2024 Hepatitis C Screening 10/28/2024 Social Influencers of Health Screening 10/28/2024 Depression Screening 06/22/2025 06/22/2024 Hypertension/CHF/CAD Annual BMP Blood Test 11/04/2025 11/04/2024 Cholesterol Screening (Lipid Panel) 11/04/2029 11/04/2024, 08/08/2022 DTaP,Tdap,and Td Vaccines (4 - Td or Tdap) 07/31/2032 07/31/2022, 07/17/2012, 08/07/2007 Zoster Vaccines Completed 03/08/2020, 09/16/2019 Pneumococcal Vaccine: 50+ Years Completed 03/10/2023, 01/30/2018, 09/05/2010 Pneumococcal Vaccine: Pediatrics (0 to 5 Years) and At-Risk Patients (6 to 64 Years) Completed 03/10/2023, 01/30/2018, 09/05/2010 COVID-19 Vaccine Completed 06/22/2024, , 03/29/2022, Additional history exists Influenza Vaccine Completed 06/22/2024, , 07/31/2021, Additional history exists MMR Vaccines Aged Out 06/30/2024 No longer eligi ble based on patient's age to complete this topic HIB Vaccines Aged Out No longer eligi [...] patient's age to complete this topic Meningococcal ACWY Vaccine Aged Out N o longer eligible based on patient's age to complete this topic Meningococcal B Vaccine Aged Out No l onger eligible based on patient's age to complete this topic RSV Immunization Patients Under 20 months Aged Out No longer eligible based on patient's age to complete this topic Varicella Vaccines Aged Out No longer eligible based on patient's age to complete this topic Procedures Procedure Name Priority Date/Time Associated Diagnosis Comments INTERFERON GAMMA INTERPRETATION Routine 11/04/2024 11:00 AM EST Healthcare maintenance INTERFERON GAMMA ANTIGEN 2 Routine 11/04/2024 11:00 AM EST Healthcare maintenance INTERFERON GAMMA ANTIGEN 1 Routine 11/04/2024 11:00 AM EST Healthcare maintenance INTERFERON GAMMA MITOGEN Routine 11/04/2024 11:00 AM EST Healthcare maintenance INTERFERON GAMMA NIL Routine 11/04/2024 11:00 AM EST Healthcare maintenance INTERFERON GAMMA FOR TB, QUALITATIVE Routine 11/04/2024 11:00 AM EST Healthcare maintenance LIPID PANEL WITH REFLEX TO DIRECT LDL Routine 11/04/2024 11:00 AM EST Migraine without aura and without status migrainosus, not intractable Moderate persistent asthma with acute exacerbation Mixed hyperlipidemia Diastolic congestive heart failure, unspecified HF chronicity (CMS/HCC V24, CMS/HCC V28) Bipolar affective disorder, remission status unspecified (CMS/HCC V24, CMS/HCC V28) Other constipation Adhesive capsulitis of left shoulder Xerosis cutis Healthcare maintenance VITAMIN D 25 HYDROXY Routine 11/04/2024 11:00 AM EST Migraine without aura and without status migrainosus, not intractable Moderate persistent asthma with acute exacerbation Mixed hyperlipidemia Diastolic congestive heart failure, unspecified HF chronicity (CMS/HCC V24, CMS/HCC V28) Bipolar affective disorder, remission status unspecified (CMS/HCC V24, CMS/HCC V28) Other constipation Adhesive capsulitis of left shoulder Xerosis cutis Healthcare maintenance CBC WITH AUTO DIFFERENTIAL Routine 11/04/2024 11:00 AM EST Diastolic congestive heart failure, unspecified HF chronicity (CMS/HCC V24, CMS/HCC V28) CBC AND DIFFERENTIAL Routine 11/04/2024 11:00 AM EST Diastolic congestive heart failure, unspecified HF chronicity (CMS/HCC V24, CMS/HCC V28) COMPREHENSIVE METABOLIC PANEL Routine 11/04/2024 11:00 AM EST Diastolic congestive heart failure, unspecified HF chronicity (CMS/HCC V24, CMS/HCC V28) THYROID STIMULATING HORMONE Routine 11/04/2024 11:00 AM EST Migraine without aura and without status migrainosus, not intractable VITAMIN B12 Routine 11/04/2024 11:00 AM EST Diastolic congestive heart failure, unspecified HF chronicity (CMS/HCC V24, CMS/HCC V28) from Last 3 Months Results * Interferon gamma interpretation (11/04/2024 11:00 AM EST) [facility] Signature Quantiferon Plus Interpretation Negative Negative LAB CHEMISTRY METHOD 11/06/2024 10:35 AM EST [facility] Blood Venous blood specimen / Unknown Venipuncture / Unknown 11/04/2024 11:00 AM EST 11/05/2024 2:03 PM EST us Kirstin Farr GEAR CODING MACHINE OPERATOR LAB BLOOD ORDERABLES Final Resul t Performing Organization Address City/[facility]/ZIP Co de Phone Number [facility] [address] [place] [address], [place] [phone] * Interferon gamma antigen 2 (11/04/2024 11:00 AM EST) Blood Venous blood specimen / Unknown Venipuncture / Unknown 11/04/2024 11:00 AM EST 11/05/2024 2:03 PM EST us Kirstin Farr NP LAB BLOOD ORDERABLES Final Resul t Performing Organization Address City/[facility] Co de Phone Number [facility] [address] [place] [address], [place] [phone] * Inteferon gamma antigen 1 (11/04/2024 11:00 AM EST) Blood Venous blood specimen / Unknown Venipuncture / Unknown 11/04/2024 11:00 AM EST 11/05/2024 2:03 PM EST us Kirstin Farr GEAR CODING MACHINE OPERATOR LAB BLOOD ORDERABLES Final Resul t Performing Organization Address [facility] Co de Phone Number [facility] [address] [place] [address], [place] [phone] * Interferon gamma mitogen (11/04/2024 11:00 AM EST) Blood Venous blood specimen / Unknown Venipuncture / Unknown 11/04/2024 11:00 AM EST 11/05/2024 2:03 PM EST us Kirstin Oyrdan GEAR CODING MACHINE OPERATOR LAB BLOOD ORDERABLES Final Resul t [facility] [address] [place] [address], * Interferon gamma NIL (11/04/2024 11:00 AM EST) Blood Venous blood specimen / Unknown Venipuncture / Unknown 11/04/2024 11:00 AM EST 11/05/2024 2:03 PM EST Kirstin Farr GEAR CODING MACHINE OPERATOR LAB BLOOD ORDERABLES Final Resul t Performing Organization Address [facility] [place]/ZIP Co de Phone Number [facility] [address] [place] [address], * (ABNORMAL) Lipid panel with reflex to direct LDL (11/04/2024 11:00 AM EST) Cholesterol 225(H) 0 - 200 mg/dL LAB CHEMISTRY METHOD 11/05/2024 7:46 PM [facility] Triglycerides 122 0 - 150 mg/dL LAB CHEMISTRY METHOD 11/05/2024 7:46 PM [facility] HDL 57 >=40 mg/dL LAB CHEMISTRY METHOD 11/05/2024 7:46 PM [facility] LDL Calculated 144(H) 0 - 100 mg/dL LAB CHEMISTRY METHOD 11/05/2024 7:46 PM [facility] VLDL Cholesterol Ciro 24.4 mg/dL LAB CHEMISTRY METHOD 11/05/2024 7:46 PM [facility] Non HDL Chol. (LDL+VLDL) 168(H) <145 mg/dL LAB CHEMISTRY METHOD 11/05/2024 7:46 PM [facility] Chol/HDL Ratio 3.9 0.0 - 4.4 LAB CHEMISTRY METHOD 11/05/2024 7:46 PM [facility] Blood Venous blood specimen / Unknown Venipuncture / Unknown 11/04/2024 11:00 AM EST 11/04/2024 6:48 PM EST us Kirstin Farr GEAR CODING MACHINE OPERATOR LAB BLOOD ORDERABLES Final Resul t [facility] [address] [place] [address], * CBC auto differential (11/04/2024 11:00 AM EST) WBC 9.8 4.8 - 10.8 K/mcL LAB HEMETOLOGY METHOD 11/04/2024 7:08 PM [facility] RBC 4.40 3.80 - 4.80 M/mcL LAB HEMETOLOGY METHOD 11/04/2024 7:08 PM [facility] Hemoglobin 12.6 11.5 - 16.0 g/dL LAB HEMETOLOGY METHOD 11/04/2024 7:08 PM [facility] Hematocrit 38.8 35.0 - 47.0 % LAB HEMETOLOGY METHOD 11/04/2024 7:08 PM [facility] MCV 88.6 79.0 - 98.0 FL LAB HEMETOLOGY METHOD 11/04/2024 7:08 PM [facility] MCH 28.8 27.0 - 32.0 pcg LAB HEMETOLOGY METHOD 11/04/2024 7:08 PM [facility] MCHC 32.5 32.0 - 37.0 g/dL LAB HEMETOLOGY METHOD 11/04/2024 7:08 PM [facility] RDW 13.2 11.0 - 15.0 % LAB HEMETOLOGY METHOD 11/04/2024 7:08 PM [facility] Platelets 227 130 - 400 K/mcL LAB HEMETOLOGY METHOD 11/04/2024 7:08 PM [facility] MPV 10.4 7.0 - 11.0 FL LAB HEMETOLOGY METHOD 11/04/2024 7:08 PM [facility] NRBC 0.0 <1.0 % LAB HEMETOLOGY METHOD 11/04/2024 7:08 PM [facility] NRBC Absolute 0.00 <0.10 K/mcL LAB HEMETOLOGY METHOD 11/04/2024 7:08 PM [facility] Neutrophils Relative 65.2 % LAB HEMETOLOGY METHOD 11/04/2024 7:08 PM [facility] Lymphocytes Relative 27.9 % LAB HEMETOLOGY METHOD 11/04/2024 7:08 PM [facility] Monocytes Relative 5.4 % LAB HEMETOLOGY METHOD 11/04/2024 7:08 PM [facility] Eosinophils Relative 0.8 % LAB HEMETOLOGY METHOD 11/04/2024 7:08 PM [facility] Basophils Relative 0.5 % LAB HEMETOLOGY METHOD 11/04/2024 7:08 PM [facility] Immature Granulocytes Relative 0.2 % LAB HEMETOLOGY METHOD 11/04/2024 7:08 PM [facility] Neutrophils Absolute 6.35 1.50 - 7.00 K/mcL LAB HEMETOLOGY METHOD 11/04/2024 7:08 PM [facility] Lymphocytes Absolute 2.72 1.00 - 5.00 K/mcL LAB HEMETOLOGY METHOD 11/04/2024 7:08 PM [facility] Monocytes Absolute 0.53 0.20 - 1.00 K/mcL LAB HEMETOLOGY METHOD 11/04/2024 7:08 PM [facility] Eosinophils Absolute 0.08 0.00 - 0.50 K/mcL LAB HEMETOLOGY METHOD 11/04/2024 7:08 PM [facility] Basophils Absolute 0.05 0.00 - 0.20 K/mcL LAB HEMETOLOGY METHOD 11/04/2024 7:08 PM EST [facility] Immature Granulocytes Absolute 0.02 0.00 - 0.03 K/mcL LAB HEMETOLOGY METHOD 11/04/2024 7:08 PM EST [facility] Blood Venous blood specimen / Unknown Venipuncture / Unknown 11/04/2024 11:00 AM EST 11/04/2024 6:48 PM EST us Kirstin Farr GEAR CODING MACHINE OPERATOR LAB BLOOD ORDERABLES Final Resul t Performing Organization Address City/[facility] [place]/ZIP Co de Phone Number [facility] [address] [place] [address], [place] [phone] * Vitamin D 25 hydroxy (11/04/2024 11:00 AM EST) Vit D, 25-Hydroxy 30.3 30.0 - 80.0 ng/mL LAB CHEMISTRY METHOD 11/05/2024 8:49 PM EST [facility] Blood Venous blood specimen / Unknown Venipuncture / Unknown 11/04/2024 11:00 AM EST 11/04/2024 6:48 PM EST us Kirstin Farr NP LAB BLOOD ORDERABLES Final Resul t Performing Organization Address [facility] [place]/ZIP Co de Phone Number [facility] [address] [place] [address], [place] [phone] * Thyroid stimulating hormone (11/04/2024 11:00 AM EST) TSH 1.44 0.40 - 4.00 mcIU/mL LAB CHEMISTRY METHOD 11/04/2024 7:43 PM EST [facility] Blood Venous blood specimen / Unknown Venipuncture / Unknown 11/04/2024 11:00 AM EST 11/04/2024 6:48 PM EST us Kirstin Farr GEAR CODING MACHINE OPERATOR LAB BLOOD ORDERABLES Final Resul t [facility] [address] [place] [address], [place] [phone] * Vitamin B12 (11/04/2024 11:00 AM EST) [facility] Vitamin B-12 607 250 - 900 pcg/mL LAB CHEMISTRY METHOD 11/04/2024 7:58 PM [facility] Blood Venous blood specimen / Unknown Venipuncture / Unknown 11/04/2024 11:00 AM EST 11/04/2024 6:48 PM EST Kirstin Farr GEAR CODING MACHINE OPERATOR LAB BLOOD ORDERABLES Final Resul t Performing Organization Address [facility] [place]/[facility] Co de Phone Number [facility] [address] [place] [address], [place] [phone] * (ABNORMAL) Comprehensive metabolic panel (11/04/2024 11:00 AM EST) [facility] Sodium 138 133 - 145 mmol/L LAB CHEMISTRY METHOD 11/04/2024 7:35 PM [facility] Potassium 3.6 3.5 - 5.5 mmol/L LAB CHEMISTRY METHOD 11/04/2024 7:35 PM [facility] Chloride 106 96 - 110 mmol/L LAB CHEMISTRY METHOD 11/04/2024 7:35 PM [facility] CO2 25 21 - 32 mmol/L LAB CHEMISTRY METHOD 11/04/2024 7:35 PM [facility] Anion Gap 7 3 - 11 LAB CHEMISTRY METHOD 11/04/2024 7:35 PM [facility] Glucose 117(H) 70 - 100 mg/dL LAB CHEMISTRY METHOD 11/04/2024 7:35 PM [facility] BUN 17 5 - 25 mg/dL LAB CHEMISTRY METHOD 11/04/2024 7:35 PM [facility] Creatinine 0.51 0.50 - 1.10 mg/dL LAB CHEMISTRY METHOD 11/04/2024 7:35 PM [facility] eGFR 109 >=60 mL/min/1. 73m2 LAB CHEMISTRY METHOD 11/04/2024 7:35 PM [facility] Comment:Calculation based on the??Chronic Kidney Disease Epidemiology Collaboration (CKD-EPI) equation refit??without adjustment for race. BUN/Creatinine Ratio 33.3 LAB CHEMISTRY METHOD 11/04/2024 7:35 PM [facility] Calcium 9.4 8.5 - 10.5 mg/dL LAB CHEMISTRY METHOD 11/04/2024 7:35 PM [facility] AST (SGOT) 16 10 - 42 unit/L LAB CHEMISTRY METHOD 11/04/2024 7:35 PM [facility] ALT (SGPT) 24 10 - 60 unit/L LAB CHEMISTRY METHOD 11/04/2024 7:35 PM [facility] Alkaline Phosphatase 95 42 - 121 unit/L LAB CHEMISTRY METHOD 11/04/2024 7:35 PM [facility] Total Protein 6.9 6.0 - 8.0 g/dL LAB CHEMISTRY METHOD 11/04/2024 7:35 PM [facility] Albumin 3.6 3.2 - 5.0 g/dL LAB CHEMISTRY METHOD 11/04/2024 7:35 PM [facility] Total Bilirubin 0.4 0.0 - 1.4 mg/dL LAB CHEMISTRY METHOD 11/04/2024 7:35 PM [facility] Blood Venous blood specimen / Unknown Venipuncture / Unknown 11/04/2024 11:00 AM EST 11/04/2024 6:48 PM EST us Kirstin Farr NP LAB BLOOD ORDERABLES Final Resul t [facility] [address] [place] [address], from Last 3 Months Insurance [id number] * Guarantor: [employer] Account Type Relation to Patient Date of Phone Billing Address [place], [place] [id number] [place] [address] Care Teams Engine Service Repairer Relationship Specialty Start Date End Date Kirstin Farr NP [address] [place] [address] PCP - General [employer] 11/02/24
--- OUTSIDE RECORDS SUMMARY | 2024-12-10 10:41 | XMS_ITS | Encounter Summary ---
Author Organization [employer] [facility] Address [address] [place] [address] 7 [place] [address] Care Team Providers Care Medical Nurse Name Role Phone Myriam Hicks Primary Care Provider [phone] Alesia Sanchez MD Primary Care Pro vider Jesus Bae Unavailable Unavailable Annette Marcus RN Unavailable [phone] Patria Bae RN Unavailable [phone] Encounter Details Date Type Department Care Team (Late st Contact Info) Description 08/16/2022 Orders Only [facility] [address] [place] [address] Virginia Kaur LPN Social History Tobacco Use Types Packs/Day Years Used Date Smoking Tobacco: Never Assessed Comments Unknown Sex and Gender Information Value [...] on filedocumented in this encounter Care Teams Medical Nurse Relationship Specialty Start Date End Date Myriam Hicks FNP PCP - General Family Medicine 04/28/22 06/09/23 Alesia Sanchez MD [address] [place] [address] PCP - General Internal Medicine 06/10/23 Jesus Bae Community Health Worker 03/11/24 Annette Marcus RN [address] [place] [address] Header Set Up Operator 03/11/24 04/11/24 Patria Bae RN [address] [place] [address] Header Set Up Operator 04/12/24 06/09/24 Shu Smith Header Set Up OperatorBracelet And Brooch Maker 08/17/24 documented as of this encounter
--- OUTSIDE RECORDS SUMMARY | 2024-12-10 10:41 | XMS_ITS | Encounter Summary ---
Author Organization [employer] [facility] Address [address] [place] [address] [address] [place] [address] Care Team Providers Care Weights And Measures Inspector Name Role Phone Myriam Hicks Primary Care Provider [phone] Alesia Sanchez MD Primary Care Pro vider Jesus Bae Unavailable Unavailable Annette Marcus RN Unavailable [phone] Patria Bae RN Unavailable [phone] Reason for Visit * Reason Comments Med Refill Encounter Details Date Type Department Care Team (Late st Contact Info) Description 09/23/[address] [facility] [address] [place] [address] Myriam Hicks FNP [address] [place] [address] Dept [place] [address] Moderate persistent asthma without complication (Primary Dx) Social History Tobacco Use Types Packs/Day Years Used Date Smoking Tobacco: Never Smokeless Tobacco: Never Alcohol Use Standard Drinks/Week Comments Never 0 (1 standard drink = 0.6 oz pur e alcohol) Comments Unknown Sex and Gender Information Value Date Recorded Sex Assigned at Female 07/01/2022 10:18 AM EDT Legal Sex Female 10:18 AM EDT Gender Identity Female 07/01/2022 10:18 AM EDT Sexual Orientation Straight 07/01/2022 10 :18 AM EDT COVID-19 Exposure Response Date Recorded In the last 10 days, have yo u been in contact with someone who was confirmed or suspected to have Coronavirus/COVID-19? No / Unsure 09/24/2022 11:28 AM EST documented as of this encounter Miscellaneous Notes * Telephone Encounter - JENSEN Calderon - 09/23/2022 10:26 PM EST Pt requesting refill on inhaler documented in this encounter Plan of Treatment Not on file documented as of this encounter Visit Diagnoses Diagnosis Moderate persistent asthma without complication- Primary documented in this encounter Care Teams Weights And Measures Inspector Relationship Specialty Start Date End Date Myriam Hicks FNP PCP - General Family Medicine 04/28/22 06/09/23 Alesia Sanchez MD [address] [place] [address] PCP - General Internal Medicine 06/10/23 Jesus Bae Community Health Worker 03/11/24 Annette Marcus RN [address] [place] [address] Supervisor Tank Storage 03/11/24 04/11/24 Patria Bae RN [address] [place] [address] Supervisor Tank Storage 04/12/24 06/09/24 Shu Smith Supervisor Tank StorageBridge Maintenance Worker 08/17/24 documented as of this encounter
--- OUTSIDE RECORDS SUMMARY | 2024-12-10 10:41 | XMS_ITS ---
Author Organization [facility] Address [address] [place] [address] Phone Care Team Providers Care Plant Sciences Professor Name Role Phone Sheng Farr NP Primary Care Provider [phone] Program of [facility]-Inclusive Care for the Elderly Status:Enrolled (Active) Start date:10/30/2024 Enrollment date:10/30/2024 Related social drivers of health:Housing Instability, TH Health Literacy, Financial Risk, Transportation, Social Isolation, Food Risk Overview This episode will track [place] documentation. Case Team Name Relationship Phone Sheng Farr GIN CLERK Nurse Practitioner [phone] Hina Russell Recreational Therapist Josee Samayoa RN Math Interventionist Ebony BORREGO Registered Nurse Alexander Mckenzie Occupational Therapist Mir Cobian RN Registered Nurse Vaishali Heredia RD Dietitian Osman Baxter PT Physical Therapist Chavo Clement [facility] Rah Elena LCSW Plate Colorer Jennifer Hi RN Math Interventionist Chelsea Montesinos Plate Colorer Ismael Chao Spiritual Care Fozia Berg PT Physical Therapist Mia Moscoso MD Primary Care Provider Continued Care and Services Coordination
[2024-12-10 11:43] LABS: Appearance Urine Turbid; Color Urine Yellow; Glucose Urine UA Negative (Negative); Leukocyte Esterase Urine Negative (Negative); Nitrite Urine Negative (Negative); Specific Gravity - Urine 1.015 (1.005-1.025); Urine Blood Negative (Negative); Urine Ketones Negative (Negative); Urine Protein Negative (Neg-Trace)
[2024-12-10 11:45] LABS: Bacteria Urine 1+ (None Seen); Hyaline Casts Urine 0-2 /LPF (0-2); RBC Urine 0-2 /HPF (0-2); WBC Urine 0-5 /HPF (0-5)
[2024-12-10] MEDS: Magnesium Hydrox/Alum Hydrox 30 ML ORAL.SUSP PO (12:03)
[2024-12-10 12:47] LABS: D Dimer High Sensitivity < 150 NG/ML
--- NOTE | 2024-12-10 12:52 | ED.CHESTPAIN ---
HPI - Chest Pain General Chief Complaint: Chest Pain Stated Complaint: chest pain Time Seen by Provider: 12/10/24 10:31 History of Present Illness HPI narrative: Patient is 59 years old presents today with having chest pain that is burning. Not associated with shortness of breath there is no diaphoresis no history diabetes, hypertension, high cholesterol, smoking, mi. Patient's father did have a heart attack in his 40s. Patient claims the pain is sharp it has been constant since about 08:00. No stress test done in the past Related Data Home Medications ?Medication ?Instructions ?Recorded ?Confirmed diclofenac sodium 1 % topical gel 2 g topical QID PRN Pain 11/30/20 01/07/24 duloxetine 60 mg capsule,delayed 60 mg PO DAILY 11/30/20 01/07/24 release fluticasone propionate 50 2 spray intranasal DAILY 11/30/20 01/07/24 mcg/actuation nasal spray,suspension lidocaine 5 % topical patch 1 patch topical DAILY 11/30/20 01/07/24 (Lidoderm) montelukast 10 mg tablet 10 mg PO BEDTIME 11/30/20 01/07/24 omeprazole 20 mg capsule,delayed 20 mg PO BID 11/30/20 01/07/24 release atorvastatin 40 mg tablet 1 tab PO BEDTIME 11/04/21 01/07/24 docusate sodium 100 mg capsule 100 mg PO BID 03/13/22 01/07/24 (Colace) cholecalciferol (vitamin D3) 50 1 cap PO QAM 09/10/22 01/07/24 mcg (2,000 unit) capsule (Vitamin D3) ipratropium bromide 17 2 puff inhalation QID PRN wheezing 09/10/22 01/07/24 mcg/actuation HFA aerosol inhaler (Atrovent HFA) furosemide 20 mg tablet 40 mg PO QAM 04/15/23 01/07/24 diltiazem HCl 240 mg 240 mg PO QAM 06/17/23 01/07/24 capsule,extended release 24 hr Previous Rx's ?Medication ?Instructions ?Recorded albuterol sulfate 2.5 mg/3 mL 2.5 mg (3 mL) inhalation Q4-6H PRN 11/14/21 (0.083 %) solution for nebulization shortness of breath or wheezing #90 mL fluticasone furoate 200 1 ea inhalation DAILY #60 ea 04/03/22 mcg-vilanterol 25 mcg/dose inhalation powder (Breo Ellipta) cyclobenzaprine 10 mg tablet 10 mg PO BEDTIME PRN muscle spasm 10/03/23 7 days #7 tabs naproxen 500 mg tablet 500 mg PO BID PRN pain 7 days #14 10/03/23 tabs tamsulosin 0.4 mg capsule 0.4 mg PO BEDTIME 30 days #90 caps 10/10/23 pyridoxine (vitamin B6) 100 mg 100 mg PO DAILY 90 days #90 tabs 12/09/23 tablet albuterol sulfate 2.5 mg/0.5 mL 5 mg inhalation Q6H PRN 03/02/24 solution for nebulization bronchospasm #30 ea prednisone 20 mg tablet 40 mg (2 x 20 mg) PO DAILY 4 days 03/02/24 #8 tabs prednisone 5 mg tablet 5 mg PO DIRECTED #84 tabs 03/10/24 umeclidinium 62.5 mcg/actuation 1 inh PO DAILY #30 ea 05/21/24 blister powder for inhalation (Incruse Ellipta) gabapentin 300 mg capsule 300 mg PO BEDTIME #30 caps 08/18/24 Allergies Allergy/AdvReac Type Severity Reaction Status Date / Time pollen extracts [POLLEN] Allergy Unknown RUNNY Verified 12/10/24 09:16 NOSE, ITCHY EYES seasonl allergies Allergy Unknown asthma Uncoded 12/10/24 09:16 attacks Review of Systems Review of Systems: Positive chest pain Yes all other systems are reviewed and are negative PMFSH Past Medical History Attestation statement: The following information was validated with the patient. Medical History COVID-19 Depression Anxiety Migraine headache Arthritis Asthma Surgical History Hx of cholecystectomy Hx of elbow surgery Hx of hysterectomy Social History Social History Household Members: Family Household Members Other:: - [place] Housing: House Do you presently have visiting nurse or other home services: No Alcohol intake: never Patient Tobacco Use Status: Never used Tobacco Smoked in Last 30 Days: No Second Hand Smoke Exposure: No Use of substances other than those prescribed or required for medical reasons: No Advance Directives: Yes Advance Directives Information Provided: Yes Advance Directives on File: No Advance Directives Date on File: 09/10/22 service: No Current occupational status: unemployed and disabled Current occupation: rt handed Physical Exam Vital Signs: Vital Signs: Last Vital Signs Temp 97.6 F 12/10/24 09:12 Pulse 72 12/10/24 12:53 Resp 14 12/10/24 12:53 BP 114/68 12/10/24 12:53 Pulse Ox 99 12/10/24 12:53 O2 Del Method Room Air 12/10/24 12:53 BMI result Body Mass Index 26.5 Appearance: Alert. Oriented X3. No acute distress. Eyes: Pupils equal, round and reactive to light. ENT: Pharynx normal. Neck: Normal inspection. Neck supple. No lymph nodes noted. No crepitus CVS: Normal heart rate and rhythm. Pulses normal. Normal S1 and S2 Respiratory: No respiratory distress. Breath sounds normal. No Wheezing. No rales Abdomen: Soft and nontender. No rigidity. No distention. good BS x4 Skin: Skin warm and dry. Normal skin color. Normal skin turgor. Extremities: No lower extremity edema. Neurovascular intact to all extremities. No Lacerations. No Rash Neuro: Oriented X 3. No motor deficit. No sensory deficit. Moving all extermities. No slurred speech Medications Administered Discontinued Medications Generic Name Dose Route Start Last Admin Trade Name Freq PRN Reason Stop Dose Admin Al Hydroxide/Mg Hydroxide 30 ml 12/10/24 11:48 12/10/24 12:03 Magnesium Hydrox/Alum Hydrox 30 Ml Oral.Susp PO 12/10/24 11:49 30 ml ONCE ONE Administration Medical Decision Making Medical Decision Making [facility] Narrative: Well-appearing my interpretation patient's EKG showed a sinus rhythm heart rate is 70 NM QRS QTC normal no acute ST segment elevation. Patient's troponin is negative. Chest pain atypical for ACS has 1 cardiac risk factor is 59 years old patient's history not consistent with acute coronary syndrome her heart score is less than 3. Patient's D-dimer is negative history not consistent with PE unlikely secondary to pulmonary emboli. Patient is chest x-ray showed no focal infiltrate. No pneumonia. No pneumothorax. Differential Diagnosis Differential Diagnoses: The differential diagnosis associated with the presentation includes ACS, reflux Admission/Observation Consideration of admission/observation: Escalation of care including admission/observation considered Lab Data MDM Lab Attestation statement: I reviewed the patient's lab results. 12/10/24 09:11 12/10/24 09:11 Labs: Lab Results 12/10/24 12/10/24 12/10/24 Range/Units 09:11 11:36 12:35 WBC 13.0 H (4.8-10.8) X10*3/uL RBC 4.74 (4.20-5.50) X10*6/uL Hgb 13.7 (12.0-16.0) g/dl Hct 40.3 (37.0-47.0) % MCV 85.0 (80.0-98.0) fL MCH 28.9 (27.0-33.0) pg MCHC 34.0 (31.0-35.0) g/dl RDW 13.2 (11.0-16.0) % Plt Count 255 (160-400) X10*3/uL MPV 8.9 L (9.4-12.3) fL Immature Gran % (Auto) 0.5 H (0.0-0.4) % Neut % (Auto) 49.7 (45-73) % Lymph % (Auto) 42.0 H (20-40) % Cobb % (Auto) 6.7 (2-11) % Eos % (Auto) 0.5 (0-4) % Baso % (Auto) 0.6 (0-2) % Lymph # (Auto) 5.5 H (1.2-4.9) X10*3/uL Cobb # (Auto) 0.9 (0.1-1.2) X10*3/uL Eos # (Auto) 0.1 (0.0-0.4) X10*3/uL Baso # (Auto) 0.1 (0.0-0.2) X10*3/uL Abs Immat Gran (auto) 0.06 H (0.00-0.03) X10*3/uL Absolute Neuts (auto) 6.5 (2.0-8.3) x10*3/uL Absolute Nucleated RBC 0.000 (0.0-0.012) X10*3/uL Nucleated RBC % (auto) 0.0 (0.0-0.2) /100WBC Smear Tech's Comments VERIFIED PT 10.6 L (10.9-12.4) SEC INR 0.9 (0.9-1.1) D-Dimer High Sensitivty < 150 NG/ML Sodium 142 (135-145) mmol/L Potassium 3.6 (3.3-5.1) mmol/L Chloride 107 (96-108) mmol/L Carbon Dioxide 26 (22-29) mmol/L Anion Gap 13 (12-20) BUN 17 H (9-16) mg/dL Creatinine 0.56 (0.5-1.4) mg/dL Estim Creat Clear Calc 106.3 Estimated GFR > 60 Random Glucose 106 (60-115) mg/dL Calcium 9.3 (8.4-10.2) mg/dL Magnesium 2.0 (1.6-2.6) mg/dL Total Bilirubin 0.5 (0.0-1.0) mg/dL AST 18 (5-31) U/L ALT 26 (0-31) U/L Alkaline Phosphatase 99 (39-117) U/L Troponin I High Sens < 2.7 < 2.7 (<3.5-17.0) ng/L Total Protein 6.9 (6.5-8.0) g/dL Albumin 4.0 (3.5-5.0) g/dL Urine Color Yellow Urine Appearance Turbid Urine pH 8.0 (5.0-9.0) Ur Specific Greer 1.015 (1.005-1.025) Urine Protein Negative (Neg-Trace) mg/dL Urine Glucose (UA) Negative (Negative) mg/dL Urine Ketones Negative (Negative) mg/dL Urine Blood Negative (Negative) Urine Nitrite Negative (Negative) Ur Leukocyte Esterase Negative (Negative) Urine RBC 0-2 (0-2) /HPF Urine WBC 0-5 (0-5) /HPF Ur Squamous Epith Cells 3-5 (0-2) /HPF Urine Bacteria 1+ (None Seen) Hyaline Casts 0-2 (0-2) /LPF Independent Interpretation I performed an independent interpretation of an: EKG (As above) and Plain X-Ray (Grossly negative) External Record Review External record reviewed: Inpatient record and Office record Discharge Plan Discharge Clinical Impression: Chest pain Patient Disposition: Home, Self-Care Instructions: Chest Pain (DC) Prescriptions: No Action albuterol sulfate 2.5 mg /3 mL (0.083 %) solution for nebulization 2.5 mg inhalation Q4-6H PRN (Reason: shortness of breath or wheezing) Qty: 90 0RF Breo Ellipta 200-25 mcg/dose blister with device 1 ea inhalation DAILY Qty: 60 6RF tamsulosin 0.4 mg capsule 0.4 mg PO BEDTIME 30 Days Qty: 90 2RF pyridoxine (vitamin B6) 100 mg tablet 100 mg PO DAILY 90 Days Qty: 90 1RF Incruse Ellipta 62.5 mcg/actuation blister with device 1 inh PO DAILY Qty: 30 6RF gabapentin 300 mg capsule 300 mg PO BEDTIME Qty: 30 0RF lidocaine [Lidoderm] 5 % adhesive patch,medicated 1 patch topical DAILY Rx Instructions: 12 HOURS ON 12 HOURS OFF omeprazole 20 mg capsule,delayed release(DR/EC) 20 mg PO BID montelukast 10 mg tablet 10 mg PO BEDTIME fluticasone propionate 50 mcg/actuation spray,suspension 2 spray intranasal DAILY duloxetine 60 mg capsule,delayed release(DR/EC) 60 mg PO DAILY diclofenac sodium 1 % gel 2 g topical QID PRN (Reason: Pain) Atrovent HFA 17 mcg/actuation HFA aerosol inhaler 2 puff INHALATION QID PRN (Reason: wheezing) cholecalciferol (vitamin D3) [Vitamin D3] 50 mcg (2,000 unit) capsule 1 cap PO QAM atorvastatin 40 mg tablet 1 tab PO BEDTIME naproxen 500 mg tablet 500 mg PO BID PRN (Reason: pain) 7 Days Qty: 14 0RF cyclobenzaprine 10 mg tablet 10 mg PO BEDTIME PRN (Reason: muscle spasm) 7 Days Qty: 7 0RF Rx Instructions: side effect is drowsiness. prednisone 20 mg tablet 40 mg PO DAILY 4 Days Qty: 8 0RF Rx Instructions: Start on March 03, 2024 albuterol sulfate 2.5 mg/0.5 mL solution for nebulization 5 mg inhalation Q6H PRN (Reason: bronchospasm) Qty: 30 0RF docusate sodium [Colace] 100 mg capsule 100 mg PO BID prednisone 5 mg tablet 5 mg PO DIRECTED Qty: 84 0RF Rx Instructions: Take 2 tabs daily for 4 weeks, then take 1 tab daily for 4 weeks furosemide 20 mg tablet 40 mg PO QAM diltiazem HCl 240 mg capsule,extended release 24hr 240 mg PO QAM Referrals: Roddy Murphy MD [Physician] - 12/13/24 Print Language: Georgian
[2024-12-10 12:53] VITALS: BP 114/68; PULSE 72; RESP 14; O2SAT 99
[2024-12-10 13:02] LABS: Troponin-I High Sensitivity < 2.7 ng/L (<3.5-17.0)
[2024-12-10 13:26] VITALS: BP 114/68; PULSE 72; RESP 14; TEMP 36.8; O2SAT 99
== END 2024-12-10 13:26 | disposition home or self-care (01) ==
PROVIDERS: Emergency Provider Emergency Medicine Emergency Medical Services
DX: R07.89 Other chest pain (principal); R06.02 Shortness of breath; Z79.899 Other long term (current) drug therapy
CPT/HCPCS: 36415; 71046; 80053; 81001; 83735; 84484; 85025; 85379; 85610; 93005; 99283; 99284

== ENCOUNTER → 2024-12-10 09:03 | Outpatient (BNV) | payer MEDICAID, SELFPAY | PROVIDERS: Emergency Provider Emergency Medicine Emergency Medical Services; Visit Provider Internal Medicine Cardiovascular Disease | DX: R94.31 Abnormal electrocardiogram [ECG] [EKG] (principal); R07.9 Chest pain, unspecified | CPT/HCPCS: 93010 ==

== ENCOUNTER → 2024-12-10 09:25 | Outpatient (BNV) | payer MEDICAID, SELFPAY | PROVIDERS: Visit Provider Radiology Diagnostic Radiology | DX: R07.9 Chest pain, unspecified (principal) | CPT/HCPCS: 71046 ==

== ENCOUNTER 2025-04-08 13:47 | Outpatient (AMB) | payer OTHER, SELFPAY ==
[2025-04-08 13:49] VITALS: BP 104/60; PULSE 76; O2SAT 96; BMI 28.7
--- NOTE | 2025-04-08 13:49 | A.OFFVIS_ITS ---
Vital Signs 04/08/25 13:49 Height 5 ft 2 in Weight 157 lb BMI 28.7 BP 104/60 Blood Pressure Location Rt brachial Position Sitting Pulse 76 Pulse Source Pulse Oximeter Pulse Oximetry (%) 96 Oxygen Delivery Method Room Air Intake Visit Reasons: asthma Allergies pollen extracts (POLLEN) Allergy (Unknown, Verified 04/08/25 13:55) RUNNY NOSE, ITCHY EYES seasonl allergies Allergy (Unknown, Uncoded 12/10/24 09:16) asthma attacks HPI HPI asthma: Details: 59-year-old lady, nonsmoker, followed for underlying moderate to severe persistent allergic asthma and dyspnea on exertion.? She has been using Tezspire, Breo, and albuterol MDI with excellent control of his symptoms. She denies recent exacerbations. [facility] Medical History (Updated 03/23/25 @ 10:09 by Khushboo Hale [facility]) Migraine-cluster headache syndrome Acute carpal tunnel syndrome of right wrist COVID-19 Depression Anxiety Migraine headache Arthritis Asthma Surgical History Hx of cholecystectomy Hx of elbow surgery Hx of hysterectomy Social History Household Members: Family Household Members Other:: - [place] Housing: House Do you presently have visiting nurse or other home services: No Alcohol intake: never Patient Tobacco Use Status: Never used Tobacco Second Hand Smoke Exposure: No Advance Directives Date on File: 09/10/22 service: No Current occupational status: unemployed and disabled Current occupation: rt handed Review of Systems Const Denies daytime sleepiness, Denies excessive sweating, Denies fatigue, Denies fever(s), Denies lethargy, Denies malaise, Denies night sweats, Denies snoring and Denies weight loss Eyes Denies blurry vision and Denies itchy eyes ENT Denies nasal congestion, Denies post nasal drip, Denies sinus pain, Denies sinus pressure and Denies other ( Thrush) Card Denies chest pain, Denies pedal edema, Denies dyspnea, Denies orthopnea and Denies paroxysmal nocturnal dyspnea Resp Denies cough, Denies hemoptysis, Denies excessive phlegm production, Denies dyspnea, Denies snoring and Denies wheezing GI Denies abdominal pain and Denies heartburn Musc Denies myalgias, Denies arthralgias and Denies joint swelling Skin/Breast Denies rash Neuro Denies memory loss and Denies seizure-like activity Psych Denies abnormal sleep pattern, Denies anxiety and Denies memory loss Endo Denies excessive sweating, Denies fatigue and Denies heat intolerance Tristin/Lymph Denies easy bruising Aller/Immun Denies itchy eyes, Denies seasonal rhinorrhea and Denies wheezing Physical Exam Vital Signs: Last Vital Signs Pulse 76 04/08/25 13:49 BP 104/60 04/08/25 13:49 Pulse Ox 96 04/08/25 13:49 Oxygen Delivery Method Room Air 04/08/25 13:49 BMI result Body Mass Index 28.7 Const General: no acute distress and alert Nutritional Appearance: not obese Orientation/consciousness: Other orientation findings ( oriented) HEENT Head: Yes atraumatic Eyes General: appearance normal, both eyes and all related structures Sclerae: sclerae normal EOM: EOMs intact bilaterally Neck Neck: Yes supple Lymphatic: no lymphadenopathy noted Resp Effort & Inspection: normal respiratory effort and no use of accessory muscles Auscultation: clear to auscultation bilaterally Cardio Rate: regular rate Rhythm: regular rhythm Heart sounds: no gallops, no murmurs and no rubs Skin General skin exam: other ( warm) Extrem General: No clubbing, No cyanosis and No edema Assessment & Plan Assessment & Plan (1) Severe persistent asthma: Code(s): J45.50 - Severe persistent asthma, uncomplicated Category: Medical Plan: Well controlled on Tezspire, Breo, and albuterol MDI/nebs. Continue current regimen. (2) Environmental allergies: Code(s): Z91.09 - Other allergy status, other than to drugs and biological substances Category: Medical Plan: Excellent control on Tezspire. Continue current regimen. Coding Level of Care Code Est Pt Level 4 (17506) Diagnoses Severe persistent asthma J45.50 Environmental allergies Z91.09
--- OUTSIDE RECORDS SUMMARY | 2025-04-08 13:53 | XMS_ITS ---
Author Organization [facility] Address [address] [place] [address] Phone Care Team Providers Care Manager Respiratory Care Name Role Phone Sheng Farr NP Primary Care Provider [phone] Program of All-Inclusive Care for the Elderly Status:Enrolled (Active) Start date:10/30/2024 Enrollment date:10/30/2024 Related social drivers of health:Housing Instability, TH Health Literacy, Financial Risk, Transportation, Social Isolation, Food Risk Overview This episode will track PACE documentation. Case Team Name Relationship Phone Sheng Farr CLINICAL CASE MANAGER Nurse Practitioner [phone] Hina Russell Recreational Therapist Josee Samayoa RN Oil Expeller Ebony Astudillo CINDER WORKER Registered Nurse Alexander Mckenzie Occupational Therapist Mir Cobian RN Registered Nurse Vaishali Heredia RD Dietitian Osman Baxter PT Physical Therapist Chavo Clement [facility] Rah ALFONSOW Advertising Account Executive Jennifer Hi RN Oil Expeller Gilda Plunkett RN Registered Nurse Chelsea Montesinos Advertising Account Executive Ismael Chao Spiritual Care Fozia Berg PT Physical Therapist Mahnaz Abdi OT Occupational Therapist Brina MONGEW Advertising Account Executive Wing Dubois PT Physical Therapist Mia Moscoso MD Primary Care Provider Continued Care and Services Coordination
--- OUTSIDE RECORDS SUMMARY | 2025-04-08 13:53 | XMS_ITS | Encounter Summary ---
Author Organization [employer] Address [address] [facility] 7t [place] [address] Care Team Providers Care American History Professor Name Role Phone Alesia Sanchez MD Primary Care Pro vider Jesus Bae Unavailable Annette Marcus RN Unavailable [phone] Patria Bae RN Unavailable Reason for Visit * Reason Comments Med Refill Encounter Details Date Type Department Care Team (Late st Contact Info) Description 06/20/2023 Refill [facility] [address] [place], [place] [phone] Myriam Hicks FNP Social History Tobacco Use Types Packs/Day Years [...] as of this encounter Plan of Treatment Upcoming Encounters Date Type Department Care Team ([facility] st Contact Info) Description 04/19/2025 9:45 AM EDT Office Visit [facility] [address] [place] [address] Alesia Sanchez MD [address] [place] [address] documented as of this encounter Visit Diagnoses Not on filedocumented in this encounter Additional Health Concerns Assessment Noted Time PHQ-9 Depression Total Score: 0 03/10/20 23 3:40 PM EDT documented as of this encounter Care Teams American History Professor Relationship Specialty Start Date End Date Alesia Sanchez MD [address] [place] [address] PCP - General Internal Medicine 06/10/23 Jesus Bae Community Health Worker 03/11/24 Annette Marcus RN [address] [place] [address] Natural Resources Engineer 03/11/24 04/11/24 Patria Bae RN [address] [place] [address] Natural Resources Engineer 04/12/24 06/09/24 Shu Smith Natural Resources EngineerGolf Ball Trimmer 08/17/24 documented as of this encounter
== END 2025-04-08 14:08 | disposition home or self-care (01) ==
LOC: HO.HPS 13:47
PROVIDERS: PCP Student in an Organized Health Care Education/Training Program; Visit Provider Internal Medicine Pulmonary Disease
DX: J45.50 Severe persistent asthma, uncomplicated (principal); Z91.09 Other allergy status, other than to drugs and biological substances
CPT/HCPCS: 99214

== ENCOUNTER → 2025-04-08 13:47 | Outpatient (BNVA) | payer OTHER, SELFPAY | PROVIDERS: PCP Student in an Organized Health Care Education/Training Program; Visit Provider Internal Medicine Pulmonary Disease | DX: J45.50 Severe persistent asthma, uncomplicated (principal); Z91.09 Other allergy status, other than to drugs and biological substances | CPT/HCPCS: 99212 ==

== ENCOUNTER 2025-06-07 06:29 | Emergency (ER) | payer OTHER, SELFPAY ==
--- NOTE | ~2025-06-07 | CT_ITS ---
EXAMINATION: CT ABDOMEN PELVIS WITHOUT IV CONTRAST HISTORY: LLQ abd pain rad L flank COMPARISON: Comparison is made with the prior examination dated 12/24/2022. TECHNIQUE: CT scan of the abdomen and pelvis was performed without contrast using standard departmental protocol. Coronal and sagittal reformatted images were generated and reviewed. Oral contrast material was not administered per department protocol. This CT exam was performed with one or more of the following dose reduction techniques: automated exposure control, adjustment of the mA and/or kV according to patient size, use of iterative reconstruction technique. DLP: 484 mGy-cm FINDINGS: LOWER CHEST: The visualized lung bases are clear. There is no pleural effusion. CARDIOVASCULATURE: The heart is normal in size. There is no pericardial effusion. LIVER: The liver is normal in size and contour. The liver has an unremarkable unenhanced appearance. GALLBLADDER / BILE DUCTS: The gallbladder is surgically absent. There is no intra or extrahepatic biliary ductal dilatation. SPLEEN: The spleen is normal in size and has an unremarkable unenhanced appearance. PANCREAS: The pancreas has an unremarkable unenhanced appearance. ADRENAL GLANDS: Unremarkable. KIDNEYS/RETROPERITONEUM: There is a 1.1 cm cyst at the upper pole of the right kidney. There are duplicated bilateral renal collecting systems. No renal calculi are identified. There is no hydronephrosis. There is a 1 mm calculus at the left UVJ. LYMPH NODES: No retroperitoneal lymphadenopathy is identified in the abdomen or pelvis. VASCULATURE: The abdominal aorta is normal in caliber. MESENTERY/PERITONEUM: No free fluid. No masses. There is no free intraperitoneal gas. STOMACH: The stomach is collapsed, limiting evaluation. SMALL BOWEL: The small bowel is normal in caliber. COLON: The colon is unremarkable. APPENDIX: Normal. URINARY BLADDER/PELVIC ORGANS: The urinary bladder is collapsed, limiting evaluation. The patient is status post hysterectomy. BONES / SOFT TISSUES: No suspicious bony or soft tissue abnormalities. CT/CT abdomen pelvis wo IV con IMPRESSION: 1 mm left UVJ calculus without hydronephrosis. Electronically signed by: Vikash Perrin MD 06/07/2025 08:26 AM EDT
[2025-06-07 06:32] VITALS: BP 120/65; PULSE 67; RESP 18; TEMP 36.4; O2SAT 94; BMI 27.9
--- OUTSIDE RECORDS SUMMARY | 2025-06-07 07:21 | XMS_ITS | Encounter Summary ---
Author Organization [employer] Address [address] [facility] 7[address] [place] [address] Care Team Providers Care Check Pilot Name Role Phone Alesia Sanchez MD Primary Care Pro vider Jesus Bae Unavailable Annette Marcus RN Unavailable [phone] Patria Bae RN Unavailable [phone] Reason for Visit * Reason Comments Med Refill Encounter Details Date Type Department Care Team (Late st Contact Info) Description 06/20/[address] [facility] [address] [place], [place] [phone] Myriam Hicks FNP Social History Tobacco Use [...] documented as of this encounter Care Teams Check Pilot Relationship Specialty Start Date End Date Alesia Sanchez MD [address] [place] [address] PCP - General Internal Medicine 06/10/23 Jesus Bae Community Health Worker 03/11/24 Annette Marcus RN [address] [place] [address] Experimental Worker 03/11/24 04/11/24 Patria Bae RN [address] [place] [address] Experimental Worker 04/12/24 06/09/24 Shu Smith Experimental WorkerAutism Teacher 08/17/24 documented as of this encounter
--- OUTSIDE RECORDS SUMMARY | 2025-06-07 07:21 | XMS_ITS | Encounter Summary ---
Author Organization [facility] Address [address] [place] [address] Care Team Providers Care Die Polisher Name Role Phone Sheng Farr NP Primary Care Provider Reason for Referral * Consultation (Routine) - Closed Specialty Diagnoses / Procedures Referred By Francois dumont Referred To Contact Emergency Medicine Diagnoses Chest pain, unspecified type Sheng Farr NP [address] [address] Phone: tel: fax:[phone] [facility] [address] [place] [address] Phone: tel: fax: Referral ID Status Reason Start Date Expiration Date Visits Re quested Visits Authorized [id number] Closed 12/10/2024 12/10/2025 1 1 Encounter Details Date Type Department Care Team (Late st Contact Info) Description 12/10/2024 PACE Admissions [facility] [address] [place] [phone] Leyda Shea RN Chest pain, unspecified type (Primary Dx) Social History Tobacco Use Types Packs/Day Years Used Date Smoking Tobacco: Never Comments Unknown Sex and Gender Information Value Date Recorded Sex Assigned at Not on file Legal Sex Female 4:17 AM EST Gender Identity Not on file Sexual Orientation Not on file documented as of this encounter Plan of Treatment Upcoming Encounters Date Type Department Care Team (Late st Contact Info) Description 06/10/2025 10:00 AM EDT Telemedicine Alyssa MONTIEL [address] [address] 06/14/2025 10:00 AM EDT Clinical Support Alyssa MONTIEL [address] [address] 06/16/2025 10:00 AM EDT Clinical Support Alyssa MONTIEL [address] [address] 06/17/2025 9:00 AM EDT Clinical Support Alyssa MONTIEL [address] [address] 06/23/2025 8:50 AM EDT Consult Gastroenterology [facility] 175 [place] [address] [address] Vonnie Joseph PA 175 [facility] Nayan [address] [place] [address] 07/04/2025 8:15 AM EST Office Visit [facility] [place] [address] [phone] Alexander Asencio, DPM [address] [address] 07/05/2025 9:45 AM EST PACE External Visit Alyssa MONTIEL [address] [address] 07/19/2025 1:00 PM EST Clinical Support Alyssa MONTIEL [address] [address] 08/02/2025 2:45 PM EST Clinical Support Alyssa MONTIEL [address] [address] 08/17/2025 10:15 AM EST Clinical Support Alyssa MONTIEL [address] [address] 09/08/2025 1:00 PM EST Clinical Support [facility] [address] [place] [address] Scheduled Referrals Name Type Priority Associated Diagnoses Orde r Schedule PACE Admisssion Outpatient Referral Routine Chest pain, unspecified type Ordered: 12/10/2024 documented as of this encounter Visit Diagnoses Diagnosis Chest pain, unspecified type- Primary documented in this encounter Care Teams Die Polisher Relationship Specialty Start Date End Date Sheng Farr NP [address] [place] [address] PCP - General RIDDHI 11/02/24 documented as of this encounter
--- OUTSIDE RECORDS SUMMARY | 2025-06-07 07:21 | XMS_ITS | Encounter Summary ---
Author Organization [employer] Address [address] [facility] [address]t [place] [address] Care Team Providers Care Grain Trader Name Role Phone Alesia Sanchez MD Primary Care Pro vider Jesus Bae Unavailable Annette Marcus RN Unavailable [phone] Patria Bae RN Unavailable [phone] Encounter Details Date Type Department Care Team (Late st Contact Info) Description 02/03/2024 Orders Only [facility] [address] [place], [place] [phone] Maico Mooney MD [address] [place], [place] [phone] H. pylori infection (Primary Dx) Social History Tobacco Use Types Packs/Day Years Used Date Smoking Tobacco: Never Smokeless Tobacco: Never Alcohol Use Standard Drinks/Week Comments Never 0 (1 standard drink = 0.6 oz pur e alcohol) Depression Answer Date Recorded Patient Health Questionnaire-9 Score 0 03/10/2023 Housing Stability Answer Date Recorded What is your housing situation today? I have anastasiia chitra 06/17/[address] you li [...] AM EDT) H pylori Ag Stool SEE NOTE [facility] Comment:HELICO[employer] PYLORI [employer], EIA, STOOL Micro Number: [id number] Test Status: Final Specimen Source: Stool Specimen Quality: Adequate H.pylori Ag: Not Detected Antimicrobials, proton pump inhibitors, and bismuth preparations inhibit H. pylori and ingestion up to two weeks prior to testing may cause false negative results. If clinically indicated the test should be repeated on a new specimen obtained two weeks after discontinuing treatment. Reference Range: Not DetectedTHIS TEST WAS PERFORMED AT:[facility] [place] [id number] JOHNSON MD Stool Rectal contents / Unknown 02/16/2024 11:30 AM EDT 02/16/2024 1:43 PM EDT Maico Mooney MD LAB BODY FLUIDS AND STOOLS ORDER MARISSA Final Result [facility] [address] [place] [phone] documented in this encounter Visit Diagnoses Diagnosis H. pylori infection- Primary Helicobacter pylori (H. pylori) documented in this encounter Additional Health Concerns Assessment Noted Time PHQ-9 Depression Total Score: 0 03/10/20 3:40 PM EDT documented as of this encounter Care Teams Grain Trader Relationship Specialty Start Date End Date Alesia Sanchez MD [address] [place] [address] PCP - General Internal Medicine 06/10/23 Jesus Bae Community Health Worker 03/11/24 Annette Marcus RN [address] [place] [address] Tile Roofer 03/11/24 04/11/24 Patria Bae RN [address] [place] [address] Tile Roofer 04/12/24 06/09/24 Shu Smith Tile RooferFisherman Helper 08/17/24 documented as of this encounter
--- OUTSIDE RECORDS SUMMARY | 2025-06-07 07:21 | XMS_ITS | Clinical Summary ---
Author Organization [employer] Address [address] [place] [address] [address] [place] [address] Care Team Providers Care Trade Specialist Name Role Phone Alesia Sanchez MD Primary Care Pro vider Jesus Bae Unavailable Allergies Active Allergy Reactions Criticality Noted Date Comments Buspirone 03/10/2023 GI upset Vomiting Dupilumab Rash Medium 02/26/2024 Fixed drug eruption 09/2023. Gramineae Pollens 09/17/2022 Medications Breo Ellipta 200-25 MCG/ACT aerosol powder Take 1 puff by mouth 1 (one) time each day at the same time. 2 Active Incruse Ellipta 62.5 MCG/ACT aerosol powder Take 1 puff by mouth 1 (one) time each day at the same time. 2 Active Diclofenac Sodium 1 % gelIndications:Ch ronic back pain, unspecified back location, unspecified back pain laterality APPLY 2 GRAMS TOPICALLY TO AFFECTED AREA(S) FOUR TIMES DAILY 100 g 1 3 Active dilTIAZem CD (Cardizem CD) 240 MG 24 hr capsule Take 240 mg by mouth in the morning. 3 Active albuterol (2.5 MG/3ML) 0.083% nebulizer solutionIndicatio ns:Moderate persistent asthma without complication INHALE 1 AMPULE USING A NEBULIZER THREE TIMES DAILY 90 mL 1 3 Active triamcinolone (Kenalog) 0.1 % cream Apply topically 2 times daily. 30 g 1 4 Active cetirizine (ZyrTEC) 10 MG tabletIndications :Seasonal allergic rhinitis, unspecified trigger TAKE 1 TABLET BY MOUTH EVERY DAY NEEDED FOR ALLERGIES 90 tablet 4 Active amitriptyline (Elavil) 75 MG tablet Take 75 mg by mouth at bedtime. 4 Active furosemide (Lasix) 40 MG tablet Take 40 mg by mouth in the morning. 4 Active pantoprazole (ProtoNix) 40 MG EC tablet Take 40 mg by mouth. 4 Active pyridoxine (Vitamin B-6) 100 MG tablet Take 100 mg by mouth in the morning. 4 Active SUMAtriptan (Imitrex) 100 MG tablet TAKE 1 TABLET BY MOUTH AT ONSET OF MIGRAINE. MAY REPEAT ONCE AFTER 2 HOURS IF NEEDED 4 Active tamsulosin (Flomax) 0.4 MG 24 hr capsule Take 0.4 mg by mouth at bedtime. 4 Active Wheat Dextrin (Benefiber) powder DISSOLVE 4 GRAM IN 4 TO 8 OUNCES OF bebida AND TAKE UP THREE TIMES DAILY NEEDED 4 Active topiramate 50 MG tablet Take 100 mg by mouth 2 times daily. Active Tezepelumab-ekko (Tezspire) 210 MG/1.91ML solution auto-injector Inject under the skin. Active cholecalciferol (D3 Super Strength) 50 MCG (2000 UT) capsuleIndication s:Vitamin D deficiency TAKE 1 CAPSULE BY MOUTH EVERY MORNING 90 capsule 4 Active DULoxetine (Cymbalta) [address] capsule TAKE 1 CAPSULE BY MOUTH AT BEDTIME 30 capsule 2 5 Active Skin Protectants, Misc. (eucerin) cream Apply topically if needed for wound care. 99 g 1 5 10/15/19 26 Active betamethasone valerate (Valisone) 0.1 % cream Apply topically 2 times daily. 30 g 1 5 Active gabapentin (Neurontin) 300 MG capsule TAKE 1 CAPSULE BY MOUTH AT BEDTIME 30 capsule 5 Active Atrovent HFA 17 MCG/ACT inhalerIndication s:Moderate persistent asthma without complication INHALE 2 PUFFS BY MOUTH FOUR TIMES DAILY NEEDED 12.9 g 1 5 Active montelukast (Singulair) 10 MG tabletIndications :Mild intermittent asthma without complication TAKE 1 TABLET BY MOUTH AT BEDTIME 90 tablet 1 5 Active docusate sodium (Colace) 100 MG capsuleIndication s:Other constipation TAKE 1 CAPSULE BY MOUTH TWICE DAILY IN THE MORNING AND AT BEDTIME 180 capsule 1 5 Active atorvastatin (Lipitor) 40 MG tablet TAKE 1 TABLET BY MOUTH EVERY MORNING 90 tablet 5 Active Active Problems Problem Noted Date Diagnosed Date [...] 2027 Lung cancer: Never smoker Eye: Refer [facility] vision 03/10/23 Dental: Discuss [...] ED. Imaging scheduled for tomorrow morning by [place]. Diastolic dysfunction 01/22/2022 Overview (06/06/2023): 10/17/22 - [...] today on exam Recommended pt to call Project Development Manager for f/u appt to discuss sleep apnea sx with provider. 2 normal sleep studies in the past, other cause may be related to pulmonary conditions or HF F/u PRN with new PCP after pulmonology appt or sooner if sx worsen Bipolar disorder 12/28/2012 Migraine 11/24/2012 Encounters Date Type Department Care Team Description 04/18/2025 Telephone [facility] [address] [place] [phone] Alesia Sanchez MD Chart Prep 04/12/2025 Patient Outreach [facility] [address] [place] [address] Alesia Sanchez MD Pre-visit Planning (Pre visit planning unable to LVM ) from Last 3 Months Immunizations Immunization Administration Dates Next Due Hep B, adult [...] 78 10/20/2024 9:43 AM EST Temperature 36.1 C (97 F) 10/20/2024 9:43 AM EST Respiratory Rate 18 [...] FOBT 1965 HIV Screening 1965 Sigmoidoscopy 1965 Disability Screening 1967 Hepatitis C Screening 1985 Pap Smear 1988 Cervical Cancer Screening 1997 HPV/Cotest 1997 Dental Oral Exam 01/12/2019 07/14/2018 Dental Prophylaxis 02/09/2019 08/10/2018 Dental X-Ray: Bitewings 07/15/2019 07/14/2018, 07/14 Dental X-Ray: Full Mouth 07/15/2021 07/14/2018, 07/02 Hepatitis B Vaccines (2 of 3 - 19+ 3-dose series) 04/07/2023 03/10/2023 Depression Monitoring 12/21/2024 06/22/2024, 024 SDOH Screening 03/11/2025 03/11/2024 Influenza Vaccine (#1) 2025 , 07/31/2022, 07/31/2021, Additional history exists Alcohol/Substance Use Screening 06/22/2025 06/22/2024 Tobacco Screening 10/15/2025 10/15/2024 Mammogram 07/08/2026 07/08/2024, 09/02, 09/22/2019, Additional history exists Lipid Panel 08/08/2027 08/08/2022, 10/2020, 04/07/2020 Colonoscopy 04/10/2028 04/10/2018 Colorectal Cancer Screening 04/10/2028 DTaP/Tdap/Td Vaccines (3 - Td or Tdap) 07/31/2032 07/31/2022, 07/17/2012, 08/07/2007 RSV Patients and Patients Aged 60 years or older (1 - 1-dose 75+ series) 2042 Zoster Vaccines Completed 03/08/2020, 09/16/2019 Pneumococcal Vaccine: 50+ Years Completed 03/10/2023, 01/30/2018, 09/05/2010 COVID-19 Vaccine Completed 06/22/2024, , 03/29/2022, Additional history exists HIB Vaccines Aged Out [...] Procedure Name Priority Date/Time Associated Diagnosis Comments BI MAMMOGRAM SCREENING TOMOSYNTHESIS BILATERAL Routine 07/08/2024 [...] Recently Relevant to Health Maintenance Results * BI Mammogram Screening Tomosynthesis Bilateral (07/08/2024 8:32 AM EST) Anatomical Region Laterality Modality Breast Bilateral Mammography 07/08/2024 8:32 AM EST Narrative 07/16/2024 4:10 PM EST [facility] [address] [place] [address] Mammography Report Signed Patient: Alberta Bashir MR#: [id number] : 1965 Acct:[id number] Age/Sex: 59 / F ADM Date: 07/08/24 Loc: HO.MAMMO Attending Dr: Alesia Mijares MD Ordering Physician: Alesia Sanchez MD Re sults: 2Benign Findings Date of Service: 07/08/24 Follow Up: 1 Year From Orig ina Mammogram Procedure(s): MM tomosynthesis screening BI Accession Number(s): [id number] cc: Alesia Sanchez MD EXAMINATION: MM SCREENING [...] 07/16/24 1607 DD/ 0832 TD/TT: 07/08/24 0846 Janitorial Tech: Procedure Note Donotuseinterpreter, Image - 07/16/2024 [facility] [address] [place] [address] Mammography Report Signed Patient: Cee BashirR#: [id number] : 1965Acct:[id number] Age/Sex: 59 / FADM Date: 07/08/24 Loc: HO.MAMMO Attending Dr: Alesia Mijares MD Ordering Physician: Alesia Sanchez sults: 2Benign Findings Date of Service: 07/08/24Follow Up: 1 Year From Orig inal Mammogram Procedure(s): MM tomosynthesis screening BI Accession Number(s): [id number] cc: Alesia Sanchez MD EXAMINATION: MM SCREENING [...] Jarvis DO in OV> 07/16/24 1607 DD/ TD/TT: 07/08/24 0846 Janitorial Tech: Alesia Mijares MD IMG BI PROCEDURES Final Result * (ABNORMAL) Lipid Panel, Standard (08/08/2022 8:50 AM EST) Cholesterol, Total 216(H) <200 mg/dL [facility] HDL Cholesterol 57 > OR = 50 mg/dL [facility] Triglycerides 115 <150 mg/dL [facility] LDL Cholesterol 136(H) mg/dL (calc) [facility] Comment: Reference range: <100 Desirable range <100 mg/dL for primary prevention; <70 mg/dL for patients with CHD or diabetic patients with > or = 2 CHD risk factors. LDL-C is now calculated using the Nelson-Roy calculation, which is a validated novel method providing better accuracy than the Friedewald equation in the estimation of LDL-C. Nelson SS et al. NICKIE. 2013;310(19): 6499-7479 (http://education.Product Hunt/faq/EPE433) Chol/HDLC Ratio 3.8 <5.0 (calc) [facility] Non-HDL Cholesterol 159(H) <130 mg/dL (calc) [facility] Comment: For patients with diabetes plus 1 major ASCVD risk factor, treating to a non-HDL-C goal of <100 mg/dL (LDL-C of <70 mg/dL) is considered a therapeutic option. 08/08/2022 8:50 AM EST 08/08/2022 8:51 AM EST Narrative [facility] - 08/09/2022 2:47 AM EST FASTING:YES FASTING: YES Keila Brewster FOURDRINIER MACHINE OPERATOR LAB BLOOD ORDERABLES Final Re sult [facility] [address], [place] [address] [facility] [address], [place] [address] * Hm Colonoscopy (04/10/2018 12:16 PM EDT) us Historical Provider MD HEALTH MAINTENANCE Final Result from Last 3 Months or Most Recently Relevant to Health Maintenance Insurance [facility] MED[facility] STAND ADULT Care Teams Trade Specialist Relationship Specialty Start Date End Date Alesia Sanchez MD [address] [place] [phone] PCP - General Internal Medicine 06/10/23 Jesus Bae Community Health Worker 03/11/24 Shu Smith Building Repair Maintenance SupervisorFuneral Planning Counselor 08/17/24
--- OUTSIDE RECORDS SUMMARY | 2025-06-07 07:21 | XMS_ITS | Encounter Summary ---
Author Organization [employer] Address [address] [facility] [address] [place] [address] Care Team Providers Care Crop Specialist Name Role Phone Alesia Sanchez MD Primary Care Pro vider Jesus Bae Unavailable Annette Marcus RN Unavailable [phone] Patria Bae RN Unavailable [phone] Encounter Details Date Type Department Care Team (Late st Contact Info) Description 02/02/2024 Orders Only [facility] MED[facility] [address] [place] [address] Provider, MD Soto Social History Tobacco Use [...] documented as of this encounter Care Teams Crop Specialist Relationship Specialty Start Date End Date Alesia Sanchez MD [address] [place] [phone] PCP - General Internal Medicine 06/10/23 Jesus Bae Community Health Worker 03/11/24 Annette Marcus RN [address] [place] [address] [place] Operator 03/11/24 04/11/24 Patria Bae RN [address] [place] [address] [place] Operator 04/12/24 06/09/24 Shu Smith [place] OperatorSenior Designer 08/17/24 documented as of this encounter
--- OUTSIDE RECORDS SUMMARY | 2025-06-07 07:21 | XMS_ITS | Clinical Summary ---
Author Organization [facility] Address [address] [place] [address] Phone Care Team Providers Care Fsr Name Role Phone Kirstin Mesa NP Primary Care Provider [phone] Allergies Active Allergy Reactions Criticality Noted Date Comments Sumatriptan Succinate Nausea And Vomiting,Weakness Medium 12/08/2024 Left hemisphere weakness and expressive aphasia Medications ipratropium HFA (ATROVENT HFA) 17 mcg/actuation inhalerIndications :Chronic obstructive pulmonary disease, unspecified COPD type (CMS/HCC V24, CMS/HCC V28) Inhale 2 puffs by mouth 4 (four) times a day if needed for wheezing or shortness of breath. 12.9 g 11/02/19 026 Active dilTIAZem CD (CARDIZEM CD) 240 mg 24 hr capsuleIndications :Tachycardia Take 1 capsule (240 mg total) by mouth 1 (one) time each day. 30 each 11/02/19 25 026 Active DULoxetine (CYMBALTA) [address] capsuleIndications :Depression, unspecified depression type Take 1 capsule (60 mg total) by mouth 1 (one) time each day with dinner. Do not crush or chew. 30 each 11/02/19 25 026 Active gabapentin (NEURONTIN) 300 mg capsuleIndications :RLS (restless legs syndrome) Take 1 capsule (300 mg total) by mouth at bedtime. 30 each 11/02/19 Active montelukast (SINGULAIR) 10 mg tabletIndications: Chronic obstructive pulmonary disease, unspecified COPD type (CMS/HCC V24, CMS/HCC V28) Take 1 tablet (10 mg total) by mouth 1 (one) time each day in the morning. 30 each 11/02/19 Active cholecalciferol (VITAMIN D-3) 50 mcg (2,000 unit) capsuleIndications :Vitamin D deficiency Take 1 capsule (2,000 Units total) by mouth 1 (one) time each day. 30 each 11/30/19 25 Active docusate sodium (COLACE) 100 mg capsuleIndications :Constipation, unspecified constipation type Take 1 capsule (100 mg total) by mouth 2 (two) times a day. 56 each 11/30/19 Active fluticasone furoate-vilanteroL (Breo Ellipta) 100-25 mcg/dose inhalerIndications :Moderate asthma, unspecified whether complicated, unspecified whether persistent Inhale 1 puff by mouth 1 (one) time each day. 1 each 12/11/19 25 Active fremanezumab-vfrm (Ajovy Autoinjector) 225 mg/1.5 mL auto-injectorIndic ations:Migraine with aura and without status migrainosus, not intractable Inject 1.5 mL (225 mg total) under the skin every 28 (twenty-eight) days. 1.5 mL 01/28/20 Active topiramate (TOPAMAX) 100 mg tabletIndications: Migraine with aura and without status migrainosus, not intractable,Migrai ne without status migrainosus, not intractable, unspecified migraine type Take 1 tablet (100 mg total) by mouth 2 (two) times a day. 56 each 02/16/20 Active ZOLMitriptan (ZOMIG) 5 mg tabletIndications: Migraine with aura and without status migrainosus, not intractable Take 1 tablet (5 mg total) by mouth 1 (one) time if needed for migraine for up to 28 days. Max: once in 24 hours 18 tablet 6 02/16/20 25 Active amitriptyline (ELAVIL) 100 mg tabletIndications: Migraine with aura and without status migrainosus, not intractable,Primar y hypertension Take 1 tablet (100 mg total) by mouth at bedtime. 28 each 02/16/20 026 Active betamethasone dipropionate (DIPROSONE) 0.05 % ointmentIndication s:Generalized maculopapular rash,Pruritus Apply topically 2 (two) times a day if needed for irritation or rash. 45 g 1 03/10/20 25 026 Active nitroglycerin (Nitrostat) 0.4 mg SL tabletIndications: Chest pain at rest,Diastolic congestive heart failure, unspecified HF chronicity (CMS/HCC V24, CMS/HCC V28) Place 1 tablet (0.4 mg total) under the tongue every 5 (five) minutes if needed for chest pain for up to 25 days. 25 tablet 3 04/15/20 25 Active atorvastatin (Lipitor) 80 mg tabletIndications: Mixed hyperlipidemia Take 1 tablet (80 mg total) by mouth at bedtime. 30 each 04/29/20 026 Active furosemide (LASIX) 40 mg tabletIndications: Primary hypertension Take 1 tablet (40 mg total) by mouth 1 (one) time each day after breakfast. 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 Tablet may be swallowed whole (do not crush/chew/suc k on) OR broken in half and each half swallowed separately. 30 each 05/20/20 026 Active furosemide (LASIX) 40 mg tabletIndications: Primary hypertension Take 1 tablet (40 mg total) by mouth 1 (one) time each day after breakfast. 30 each 11/02/19 25 025 Discontin ued(Reord er) hydrOXYzine pamoate (VistariL) 25 mg capsuleIndications :pruritus of skin,25mg in am, 25mg at noon, 50mg at hs Take 2 capsules (50 mg total) by mouth 4 (four) times a day if needed for itching for up to 10 days. 60 each 04/28/20 25 025 Discontin ued(Drug interacti on) Hospital, Clinic, or Other Facility Administered Medication Ordered Dose Route Frequency Start Date End Date Status fremanezumab-vfrm (AJOVY) syringe 225 mgIndications:Migraine with aura and without status migrainosus, not intractable 225 mg subQ Every 28 days 01/27/2025 Active Active Problems Problem Noted Date Diagnosed Date Sprain of left knee 03/02/2025 Assessment & Plan (04/28/2025 3:18 PM EDT): Par provided verbal consent for left knee corticosteroid injection. Left knee exposed. Lateral proximal patella region isolated. Povidone/Iodine solution utilized to prep site, allowed to dry for one minute. Lidocaine 1% plain 10mg/ml (100 mg) mixed with Triamcinolone 40 mg/ml (1ml). Ethyl-chloride spray for analgesia applied. #22 gauge 1 1/2 inch needle inserted into her left patellofemoral joint space without resistance. Passive injection without resistance, aspiration did not reveal any joint fluid. Needle removed, Band-Aid DSG applied. Participant actively performed ROM right knee without pain. She tolerating injection well. Continue to work with PT, use rollator walker, rest, Ice, elevation and compression to left knee PRN. Assessment & Plan (03/02/2025 3:40 PM EDT): Encourage RICE protocol (Rest, Ice, Compression, Elevation) Limit weight-bearing as needed Gradual return to activity as tolerated Reviewed importance of protecting joint from further injury during healing Advised signs of worsening: increasing swelling, inability to bear weight, instability, redness or warmth--return to clinic or ER if these occur Instructed patient to avoid high-impact activities (e.g., running, jumping) until pain-free and cleared Encourage gentle vuytx-qy-noxeeu exercises after initial rest phase Plantar fascial fibromatosis 02/01/2025 Overview (02/01/2025): HPI: Par seen by Podiatry on 01/31/25, Dr. Asencio: complaining sharp shooting pain in her right heel is been going on for 3 to 6 months worse when she was from sit to stand states very painful to her makes difficult for her to walk she states she denies trauma to the area pain is a 7 out of 10. Physical Exam: Pain with palpation of the medial tuber of the right calcaneus, negative palpable fibromas Equinus with 5 degrees dorsiflexion with knee bent 0 degrees with knee extended positive silver skoild test No pain on palpation of the posterior tibial tendon, patient to perform single and double heel raise No pain on palpation of the Achilles tendon. Negative palpable deficits of the Achilles tendon Normal range of motion of the ankle joint and subtalar joint Impression/Plan: Plantar fascial fibromatosis Equinus contracture of ankle PLAN: Pt was seen and examined, history reviewed. Treatment options were discussed and reviewed including stretching exercises demonstrated for patient anti-inflammatory medications steroid injections orthotics and insoles Recommendations given for prefabricated insoles Referral offered physical therapy patient declined Prescription given for anti-inflammatory medication X-rays ordered and reviewed Revisit antifungal medications would recommend clotrimazole topically ruos-kno-swefrja options were reviewed Follow-up in 4 to 6 weeks Assessment & Plan (04/28/2025 3:15 PM EDT): Chronic condition, stable, asymptomatic, f/u with Podiatry on 05/05/25 s/p steroid injections, will continue current medications and CTM. Assessment & Plan (02/01/2025 8:54 AM EDT): Plan: Will order f/u with Dr. Asencio in 4-6 weeks. Will provide Clotrimazole topical cream and refer her to [facility] therapy department and CTM. Essential hypertension 11/11/2024 Overview (11/11/2024): Normotensive this encounter, will continue to monitor. Assessment & Plan (04/28/2025 3:13 PM EDT): Normotensive on exam, Chronic condition, stable, asymptomatic, will continue current medications and CTM. Assessment & Plan (04/15/2025 11:15 AM EDT): controlled Osteoarthritis of both shoulders 11/11/2024 Overview (11/11/2024): Chronic condition, stable. Assessment & Plan (04/28/2025 3:15 PM EDT): Chronic condition, stable in right shoulder, left shoulder, no effusion or crepitous on exam, referral to physical therapy, will continue current medications and CTM. Anxiety 11/11/2024 Overview (11/11/2024): Chronic intermittent condition, currently stable, will continue current medications and monitor. Assessment & Plan (04/28/2025 3:31 PM EDT): Chronic condition, stable, asymptomatic, will continue current medications and CTM. Fibromyalgia 11/11/2024 Overview (11/11/2024): Chronic intermittent diffuse myalgias, currently in remission , will continue current medications and monitor. Assessment & Plan (04/28/2025 2:57 PM EDT): No complaints of fibromyalgia on exam today. Specific joint pain, left shoulder, left knee, left SI joint on exam. Condition is current stable, will continue current medications and monitor. Chest pain due to GERD 11/11/2024 Overview (11/11/2024): Chronic intermittent condition, currently stable, will continue to monitor. Assessment & Plan (04/28/2025 2:58 PM EDT): Chronic condition, stable, asymptomatic, will continue current medications and CTM. Migraine with aura and witho ut status migrainosus, not intractable 11/04/2024 Overview (03/10/2025): Dougie's migraine management has been with - - Dr. Shelby Roe, Neurologist. She is on Amitriptyline 100 mg PO QHS and Topiramate 50 mg tablets; 2 tabs PO in the am and pm; currently well managed, will continue to monitor. Neurologist recommended auroraezumab (Ajovy injector) monthly. Assessment & Plan (04/28/2025 2:56 PM EDT): Chronic condition, stable, on Ajovy and Zomig, will continue current medications and CTM. Assessment & Plan (03/10/2025 3:32 PM EDT): -Pt would like to get the injections at [facility]. -We can let neurology office know of her wishes, ensure we can order this mab; -she can still have f/u with Dr Roe as scheduled by his clinic. Assessment & Plan (01/04/2025 3:00 PM EDT): Neurology appointment recently from which she was started on Divalproex 250 mg PO QHS and Zolmitriptan 5 mg tablet; take one tablet by mouth as needed for migraine headache relief, max dose, one tablet in 24 hours. Alberta appears to be doing better and will report her progress with her new medications back to [facility] clinic and has a scheduled f/u appointment with her Neurologist on 01/27/25. Assessment & Plan (12/07/2024 12:59 PM EDT): [...] & Plan (11/04/2024 1:57 PM EST): Dougie's migraine management has been with - - Dr. Shelby Roe, Neurologist. She is on Amitriptyline 100 mg PO QHS and Topiramate 50 mg tablets; 2 tabs PO in the am and pm; currently well managed, will continue to monitor. Severe persistent asthma wit h acute exacerbation ([facility] V28) 11/04/2024 Overview (11/04/2024): Dougie's asthma is managed by Pulmonology, Dr. Jordan Rmoan MD at [facility]. She gets once monthly injections of Tezspire, takes Atrovent HFA 17 mcg HFA; 2 puffs QID. Incruse Ellipta 62.5 mcg daily in am. Montelukast 10 mg PO every evening. ML will reach out to Dr. Roman's office to get schedule of injections and work out schedule to continue. Dougie's asthma is currently well controlled. Assessment & Plan (04/28/2025 3:12 PM EDT): Chronic condition, stable, Improved on Tezpire infusion, Atrovent, Singulair, Breo-Ellipta asymptomatic, will continue current medications and CTM. Assessment & Plan (03/10/2025 3:32 PM EDT): Pt wishes to get Tezspire injections at [facility]. We will reach out to Resource Manager Forester, Dr Roman's office to discuss getting the medication and administer it according to the schedule of injections. Attn: Alisha Cronin: please get Pulmonology notes. thanks Assessment & Plan (12/21/2024 2:43 PM EDT): Background: Dougie presented to the ED on 12/10/24: acute onset burning chest pain that turned into productive cough, hoarseness, SOB. Dougie is scheduled to begin Tezpire infusions at [facility] on 12/31/24 and continue monthly under the guidance of her Resource Manager Forester. Among the possibilities for this acute episode are allergic bronchiolitis, Allergic Asthma. Plan: Repeat 2-view CXR. Start: Doxycycline 100 mg PO BID X 10 days, Prednisone 40 mg PO QD X 5 days, Mucinex 1200 PO QD X 10 day; f/u in two weeks with a RTC PCP visit. Assessment & Plan (11/04/2024 1:57 PM EST): Dougie's asthma is managed by Pulmonology, Dr. Jordan Roman MD at [facility]. She gets once monthly injections of [...] with changes as needed. Assessment & Plan (04/28/2025 3:20 PM EDT): Repeat lipid panel this encounter 11/04/2024 labs showed elevated total cholesterol and LDL. Will continue current STATIN therapy and CTM. Assessment & Plan (11/04/2024 1:56 PM EST): Dougie's hyperlipidemia is managed with atorvastatin 40 mg PO QD, labs collected today, will review and continue current regimen with changes as needed. Chronic diastolic heart failure (CMS/HCC V24, CM S/[facility] V28) 11/04/2024 Assessment & Plan (04/28/2025 3:12 PM EDT): Chronic condition, weight is stable, euvolemic on exam, asymptomatic, will continue current medications and CTM. Assessment & Plan (04/15/2025 11:15 AM EDT): Normotensive today. Not tachy (h/o tachycardia), no LE edema or dyspnea. Orders: nitroglycerin (Nitrostat) 0.4 mg SL tablet; Place 1 tablet (0.4 mg total) under the tongue every 5 (five) minutes if needed for chest pain for up to 25 days. Assessment & Plan (11/04/2024 11:32 AM EST): Dougie comes to with diagnosis of diastolic heart failure. She is on Furosemide 40 mg PO QD in the am. Her corrosion control technician is Dr. Ti Og MD. is reaching to Dr. Og's office to get past notes, testing and if any future testing has been requested. Dougie appears euvolemic on exam, VSS, labs collected during this visit, will continue to monitor. Bipolar affective disorder, remission status unspecified (CMS/[facility] V24, CMS/[facility] V28) 11/04/2024 Assessment & Plan (04/28/2025 3:20 PM EDT): Chronic condition, stable, asymptomatic, will continue current medications and CTM. Assessment & Plan (11/04/2024 12:00 PM EST): Dougie is currently on Duloxetine DR 60 mg PO QD. Last PHQ-9 in the fall of 2023 was 12, FREDDY 9, No SI. In clinic during this encounter, Dougie endorses her Bipolar depression is well managed and denies any SI, will continue current medications and monitor. Other constipation 11/04/2024 Overview (11/04/2024): Dougie endorses long history of constipation. She is on Colace 100 mg PO BID. ML will reach out to her graphics editor office for notes, pending tests: EGD & Colonoscopy in November 2024. Dougie is in no distress this visit, will continue current medications and monitor. Assessment & Plan (04/28/2025 3:13 PM EDT): Chronic condition, stable, will continue current medications and CTM. Assessment & Plan (11/04/2024 1:58 PM EST): Dougie endorses long history of constipation. She is on Colace 100 mg PO BID. ML will reach out to her graphics editor office for notes, pending tests: EGD & Colonoscopy in November 2024. Par is in no distress this visit, will [...] LT min 2V IMPRESSION: Normal left shoulder. Dougie provided verbal consent for corticosteroid injection left [...] needle removed and Band Aid dressing applied. Duogie's left shoulder brought through passive ROM, Par was pain free. Successful corticosteroid injection left shoulder, will refer to PT and monitor. Assessment & Plan (04/28/2025 3:14 PM EDT): Plan: Referral to physical therapy. Par stated understanding with recommendation and agreed with plan. Assessment & Plan (03/10/2025 3:32 PM EDT): Showed some simple exercises to gradually stretch and extend her arm. Pt will try these. She has been seen by Therapy. Assessment & Plan (11/04/2024 1:57 PM EST): Dougie stated her left shoulder pain started about 3 to 4 years ago out of the blue. X-ray left shoulder on 05/14/24: FINDINGS: The bones and soft tissues are normal. No fracture. Glenohumeral and acromioclavicular alignment is anatomic with normal joint space. No abnormal soft tissue calcifications. XR/XR shoulder LT min 2V IMPRESSION: Normal left shoulder. Dougie provided verbal consent for corticosteroid injection left [...] monitor. Healthcare maintenance 11/04/2024 Assessment & Plan (04/28/2025 3:21 PM EDT): Dougie is up to date on her colonoscopy, not due till 2027. Dougie agreed to referral to OB for pap smear, will order and CTM. Assessment & Plan (11/04/2024 2:35 PM EST): Dougie's vaccination history includes COVID-19 X 5, TDAP 2011, TD 2021, Shringrix X 2, Hep B X 1. Last Colonoscopy in 2017, next pending scheduling in 2024, last mammogram July 2024. Will order Hep B 2nd shot, and Pneumovax and continue to monitor. Resolved Problems Problem Noted Date Diagnosed Date Resolved Date Herpes zoster without complication 03/02/2025 04/28/2025 Overview (03/02/2025): Vesicular rash localized to the left lower extremity, distributed along the L5 dermatome. Assessment & Plan (03/10/2025 3:32 PM EDT): Currently in R L5 dermatome. Taking valcyclovir for this. Assessment & Plan (03/02/2025 3:37 PM EDT): - Follow up in ten days in clinic to assess treatment of shingles, use tylenol or motrin for pain, do not scratch or pop blisters to reduce spreading Simple chronic bronchitis (C MS/HCC V24, CMS/HCC V28) 11/11/2024 04/12/2025 Overview (11/11/2024): Chronic condition, currently in remission, well maintained on medication. Atopic dermatitis in adult 11/04/2024 0 04/28/2025 Overview (11/25/2024): >>OVERVIEW FOR XEROSIS CUTIS WRITTEN ON 11/04/2024 12:07 PM BY KIRSTIN MESA NP Par endorses her left heel dry cracked skin [...] WRITTEN ON 11/04/2024 1:56 PM BY KIRSTIN MESA NP Par endorses her left heel dry cracked skin [...] Encounters Date Type Department Care Team Description 05/20/2025 9:15 AM EDT [facility] External Visit Rene [address] [phone] Bronchitis; Moderate asthma without complication, unspecified whether persistent; Moderate persistent asthma with acute exacerbation 05/19/2025 8:30 AM EDT [facility] Physical Therapy [address] [place] [phone] Mary Stephen, HILDA 05/19/2025 Plan of Care Documentation [address] [phone] 05/18/2025 9:30 AM EDT [facility] [address] [phone] Chest pain due to GERD; Essential hypertension; Diastolic congestive heart failure, unspecified HF chronicity (CMS/HCC V24, CMS/HCC V28) 05/12/2025 12:00 PM EDT [facility] [address] [phone] Rosario Santana LPN 05/12/2025 11:00 AM EDT [facility] Physical Therapy [address] [place] [phone] Mary Stephen, DIRECTOR [facility]ELOP[facility] 05/05/2025 2:30 PM EDT [facility] Physical Therapy [address] [place] [phone] Mary Stephen, DIRECTOR [facility]ELOP[facility] 05/05/2025 2:30 PM EDT [facility] External Visit [address] [phone] Healthcare maintenance 04/28/2025 2:30 PM EDT Treatment [facility] Physical Therapy [address] [place] [phone] Mary Stephen, HILDA 04/28/2025 1:00 PM EDT Clinical Support [address] [phone] Gilda Plunkett RN Adult general medical examination (Primary Dx) 04/28/2025 1:00 PM EDT [facility] Assessment [address] [phone] Kirstin Mesa NP Mixed hyperlipidemia (Primary Dx); Essential hypertension; Diastolic congestive heart failure, unspecified HF chronicity (CMS/[facility] V24, CMS/[facility] V28); Migraine with aura and without status migrainosus, not intractable; Generalized maculopapular rash; Pruritus; Fibromyalgia; Chest pain due to GERD; Moderate persistent asthma with acute exacerbation; Other constipation; Adhesive capsulitis of left shoulder; Primary osteoarthritis of both shoulders; Plantar fascial fibromatosis; Sprain of left knee, unspecified ligament, initial encounter; Bipolar affective disorder, remission status unspecified (CMS/HCC V24, CMS/HCC V28); Healthcare maintenance; Anxiety; Primary osteoarthritis of left knee; Severe persistent asthma with acute exacerbation (CMS/HCC V28); Chronic diastolic heart failure (CMS/HCC V24, CMS/HCC V28) 04/28/2025 [facility] On-Call [address] [phone] Mari Burton LPN 04/27/2025 2:30 PM EDT [facility] Assessment [facility] Physical Therapy [address] [place] [phone] Wing Dubois, PT Fibromyalgia (Primary Dx) 04/22/2025 9:30 AM EDT [facility] External Visit [address] [phone] Bronchitis; Moderate asthma without complication, unspecified whether persistent; Moderate persistent asthma with acute exacerbation 04/20/2025 1:15 PM EDT [facility] Assessment [facility] Occupational Therapy [address] [place] [phone] Alexander Mckenzie, BOB Fibromyalgia (Primary Dx) 04/13/[address] [phone] Kirstin Mesa NP 04/12/2025 2:30 PM EDT Office Visit [address] [phone] Mia Moscoso MD Chest pain at rest (Primary Dx); Diastolic congestive heart failure, unspecified HF chronicity (CMS/HCC V24, [facility] V28); Essential hypertension 04/12/2025 1:30 PM EDT Clinical Support [address] [phone] Nicolasa Cobian RN 04/12/2025 [facility] Admissions [address] [phone] Leyda Shea RN Chest pain, unspecified type (Primary Dx) 04/08/2025 1:40 PM EDT [facility] External Visit [address] [phone] Simple chronic bronchitis ([facility] V24, [facility] V28) 03/29/2025 9:10 AM EDT [facility] External Visit [address] [phone] Migraine aura without headache; TIA (transient ischemic attack) 03/25/2025 8:45 AM EDT [facility] External Visit [address] [phone] Bronchitis; Moderate asthma without complication, unspecified whether persistent; Moderate persistent asthma with acute exacerbation 03/11/[address] [phone] Kirstin Mesa NP Bronchitis; Moderate asthma without complication, unspecified whether persistent; Moderate persistent asthma with acute exacerbation 03/10/2025 2:00 PM EDT Office Visit [address] [phone] Mia Moscoso MD Herpes zoster without complication (Primary Dx); Generalized maculopapular rash; Pruritus; Migraine with aura and without status migrainosus, not intractable; Moderate persistent asthma with acute exacerbation; Adhesive capsulitis of left shoulder from Last 3 Months Immunizations Immunization Administration Dates Next Due Hepatitis B (Recombivax HB-D ialysis) 18yo and older 11/04/2024(Deferred: Other - JUST ORDERED NOT IN STOCK) Pneumococcal polysaccharide 23 valent (Pneumovax 23) 2yo and older 11/04/2024(Deferred: Other - JUST ORDERED NOT IN STOCK) Surgical History Surgery Date Site/Laterality Comments HYSTERECTOMY Medical History Medical History Date Comments Asthma COPD (chronic obstructive pu lmonary disease) ([facility] V24, [facility] V28) CHF (congestive heart failur e) [place] [place] [facility] V[facility] GERD (gastroesophageal reflux disease) Headache Arthritis Simple chronic bronchitis ([facility] V24, [facility]28) 11/11/2024 Chronic condition, currently in remission, well maintained on medication. Social History Tobacco Use Types Packs/Day Years Used Date Smoking Tobacco: Never Tobacco Cessation:Counseling Given: Not Answered Comments Unknown Sex and Gender Information Value Date Recorded Sex Assigned at Not on file Legal Sex Female 4:17 AM EST Gender Identity Not on file Sexual Orientation Not on file Obstetrics History Last Filed Vital Signs Vital Sign Reading Time Taken Comments Blood Pressure 122/68 05/12/2025 8:53 AM EDT Pulse 72 05/12/2025 8:53 AM EDT Temperature 36.4 C (97.6 F) 04/28/2025 2:15 PM EDT Respiratory Rate 20 04/28/2025 3:07 PM EDT Oxygen Saturation 93% 04/28/2025 3:07 PM EDT Inhaled Oxygen Concentration - - Weight 71.7 kg (158 lb) 04/28/2025 3:07 PM EDT Height 157.5 cm (5' 2 ) 04/28/2025 3:07 PM EDT Body Mass Index 28.9 04/28/2025 3:07 PM EDT Plan of Treatment Upcoming Encounters Date Type Department Care Team (Late st Contact Info) Description 06/10/2025 10:00 AM EDT Telemedicine Rene MONTIEL MA [address] [place] [address] 06/14/2025 10:00 AM EDT Clinical Support Rene MONTIEL MA [address] [place] [phone] 06/16/2025 10:00 AM EDT Clinical Support Rene MONTIEL MA [address] [place] [phone] 06/17/2025 9:00 AM EDT Clinical Support Rene MONTIEL MA [address] [place] [phone] 06/23/2025 8:50 AM EDT Consult Gastroenterology - [place] [address] [facility] [facility] [address] [place] [phone] Vonnie Joseph PA [address] Nayan [address] [place] [address] 07/04/2025 8:15 AM EST Office Visit Orthopedic Surgery - [place] [address] [place] [phone] Alexander Asencio, DPM [address] [phone] 07/05/2025 9:45 AM EST PACE External Visit Rene MONTIEL [address] [phone] 07/19/2025 1:00 PM EST Clinical Support Rene MONTIEL MA [address] [place] [phone] 08/02/2025 2:45 PM EST Clinical Support Rene MONTIEL MA [address] [place] [phone] 08/17/2025 10:15 AM EST Clinical Support Rene MONTIEL MA [address] [place] [phone] 09/08/2025 1:00 PM EST Clinical Support Rene MONTIEL MA [address] [place] [phone] Health Maintenance Due Date Last Done Comments Breast Cancer Screening 1965 Colorectal Cancer Screening: Colonoscopy 1967 Cervical Cancer Screening: Pap Smear 1988 Hepatitis B Vaccines (2 of 3 - 19+ 3-dose series) 04/07/2023 03/10/2023 Depression Screening 09/01/2024 HIV Screening 10/28/2024 Hepatitis C Screening 10/28/2024 Social Influencers of Health Screening 10/28/2024 Influenza Vaccine (#1) 2025 , 07/31/2022, 07/31/2021, Additional history exists Hypertension/CHF/CAD Annual BMP Blood Test 04/28/2026 04/28/2025, 12/10/2024, 11/04/2024 Cholesterol Screening (Lipid Panel) 04/28/2030 04/28/2025, 11/04/2024, 08/08/2022 DTaP,Tdap,and Td Vaccines (4 - Td or Tdap) 07/31/2032 07/31/2022, 07/17/2012, 08/07/2007 RSV Immunization Adult Patients (1 - 1-dose 75+ series) 2042 Zoster Vaccines Completed 03/08/2020, 09/16/2019 Pneumococcal Vaccine: 50+ Years Completed 03/10/2023, 01/30/2018, 09/05/2010 COVID-19 Vaccine Completed 06/22/2024, , 03/29/2022, Additional history exists MMR Vaccines Aged Out [...] Procedure Name Priority Date/Time Associated Diagnosis Comments CBC WITH AUTO DIFFERENTIAL Routine 04/28/2025 2:03 PM EDT Mixed hyperlipidemia Essential hypertension Diastolic congestive heart failure, unspecified HF chronicity (CMS/HCC V24, CMS/HCC V28) CBC AND DIFFERENTIAL Routine 04/28/2025 2:03 PM EDT Mixed hyperlipidemia Essential hypertension Diastolic congestive heart failure, unspecified HF chronicity (CMS/HCC V24, CMS/HCC V28) COMPREHENSIVE METABOLIC PANEL Routine 04/28/2025 2:03 PM EDT Mixed hyperlipidemia Essential hypertension Diastolic congestive heart failure, unspecified HF chronicity (CMS/HCC V24, CMS/HCC V28) LIPID PANEL WITH REFLEX TO DIRECT LDL Routine 04/28/2025 2:03 PM EDT Mixed hyperlipidemia Essential hypertension Diastolic congestive heart failure, unspecified HF chronicity (CMS/HCC V24, CMS/HCC V28) from Last 3 Months Results * (ABNORMAL) Lipid panel with reflex to direct LDL (04/28/2025 2:03 PM EDT) Cholesterol 225(H) 0 - 200 mg/dL LAB CHEMISTRY METHOD 04/28/2025 6:20 PM EDT [facility] Triglycerides 139 0 - 150 mg/dL LAB CHEMISTRY METHOD 04/28/2025 6:20 PM EDT [facility] HDL 60 >=40 mg/dL LAB CHEMISTRY METHOD 04/28/2025 6:20 PM T [facility] LDL Calculated 137(H) 0 - 100 mg/dL LAB CHEMISTRY METHOD 04/28/2025 6:20 PM T [facility] Comment:Estimated LDL Calcul ated using equation: Total cholesterol - HDL cholesterol - (Triglycerides/5) VLDL Cholesterol Ciro 27.8 mg/dL LAB CHEMISTRY METHOD [facility] Non HDL Chol. (LDL+VLDL) 165(H) <145 mg/dL LAB CHEMISTRY METHOD 04/28/2025 6:20 PM EDT [facility] Chol/HDL Ratio 3.8 0.0 - 4.4 LAB CHEMISTRY METHOD 04/28/2025 6:20 PM T [facility] Blood Venous blood specimen / Unknown Venipuncture / Unknown 04/28/2025 2:03 PM EDT 04/28/2025 2:03 PM EDT us Kirstin Mesa PRE PRESS MANAGER LAB BLOOD ORDERABLES Final Resul t [facility] [address] [place] [address], [place] [phone] * CBC auto differential (04/28/2025 2:03 PM EDT) WBC 8.1 4.8 - 10.8 K/mcL LAB HEMETOLOGY METHOD 04/28/2025 6:00 PM [facility] RBC 4.60 3.80 - 4.80 M/mcL LAB HEMETOLOGY METHOD 04/28/2025 6:00 PM [facility] Hemoglobin 13.0 11.5 - 16.0 g/dL LAB HEMETOLOGY METHOD 04/28/2025 6:00 PM [facility] Hematocrit 40.0 35.0 - 47.0 % LAB HEMETOLOGY METHOD 04/28/2025 6:00 PM [facility] MCV 87.0 79.0 - 98.0 FL LAB HEMETOLOGY METHOD 04/28/2025 6:00 PM [facility] MCH 28.3 27.0 - 32.0 pcg LAB HEMETOLOGY METHOD 04/28/2025 6:00 PM [facility] MCHC 32.5 32.0 - 37.0 g/dL LAB HEMETOLOGY METHOD 04/28/2025 6:00 PM [facility] RDW 12.9 11.0 - 15.0 % LAB HEMETOLOGY METHOD 04/28/2025 6:00 PM [facility] Platelets 265 130 - 400 K/mcL LAB HEMETOLOGY METHOD 04/28/2025 6:00 PM [facility] MPV 10.1 7.0 - 11.0 FL LAB HEMETOLOGY METHOD 04/28/2025 6:00 PM [facility] NRBC 0.0 <1.0 % LAB HEMETOLOGY METHOD 04/28/2025 6:00 PM [facility] NRBC Absolute 0.00 <0.10 K/mcL LAB HEMETOLOGY METHOD 04/28/2025 6:00 PM [facility] Neutrophils Relative 56.3 % LAB HEMETOLOGY METHOD 04/28/2025 6:00 PM [facility] Lymphocytes Relative 34.9 % LAB HEMETOLOGY METHOD 04/28/2025 6:00 PM [facility] Monocytes Relative 6.5 % LAB HEMETOLOGY METHOD 04/28/2025 6:00 PM [facility] Eosinophils Relative 1.4 % LAB HEMETOLOGY METHOD 04/28/2025 6:00 PM [facility] Basophils Relative 0.7 % LAB HEMETOLOGY METHOD 04/28/2025 6:00 PM [facility] Immature Granulocytes Relative 0.2 % LAB HEMETOLOGY METHOD 04/28/2025 6:00 PM [facility] Neutrophils Absolute 4.53 1.50 - 7.00 K/mcL LAB HEMETOLOGY METHOD 04/28/2025 6:00 PM [facility] Lymphocytes Absolute 2.81 1.00 - 5.00 K/mcL LAB HEMETOLOGY METHOD 04/28/2025 6:00 PM EDT [facility] Monocytes Absolute 0.52 0.20 - 1.00 K/mcL LAB HEMETOLOGY METHOD 04/28/2025 6:00 PM EDT [facility] Eosinophils Absolute 0.11 0.00 - 0.50 K/mcL LAB HEMETOLOGY METHOD 04/28/2025 6:00 PM EDT [facility] Basophils Absolute 0.06 0.00 - 0.20 K/mcL LAB HEMETOLOGY METHOD 04/28/2025 6:00 PM EDT [facility] Immature Granulocytes Absolute 0.02 0.00 - 0.03 K/[facility] LAB HEMETOLOGY METHOD 04/28/2025 6:00 PM EDT [facility] Blood Venous blood specimen / Unknown Venipuncture / Unknown 04/28/2025 2:03 PM EDT 04/28/2025 2:03 PM EDT us Kirstin Mesa PRE PRESS MANAGER LAB BLOOD ORDERABLES Final Resul t [facility] [address] [place] [address], * Comprehensive metabolic panel (04/28/2025 2:03 PM EDT) Sodium 139 133 - 145 mmol/L LAB CHEMISTRY METHOD 04/28/2025 6:21 PM EDT [facility] Potassium 3.9 3.5 - 5.5 mmol/L LAB CHEMISTRY METHOD 04/28/2025 6:21 PM EDT [facility] Chloride 107 96 - 110 mmol/L LAB CHEMISTRY METHOD 04/28/2025 6:21 PM EDT [facility] CO2 29 21 - 32 mmol/L LAB CHEMISTRY METHOD 04/28/2025 6:21 PM EDT [facility] Anion Gap 3 3 - 11 LAB CHEMISTRY METHOD 04/28/2025 6:21 PM [facility] Glucose 93 70 - 100 mg/dL LAB CHEMISTRY METHOD 04/28/2025 6:21 PM [facility] BUN 13 5 - 25 mg/dL LAB CHEMISTRY METHOD 04/28/2025 6:21 PM [facility] Creatinine 0.50 0.50 - 1.10 mg/dL LAB CHEMISTRY METHOD 04/28/2025 6:21 PM [facility] eGFR 110 >=60 mL/min/1. 73m2 LAB CHEMISTRY METHOD 04/28/2025 6:21 PM [facility] Comment:Calculation based on the Chronic Kidney Disease Epidemiology Collaboration (CKD-EPI) equation refit without adjustment for race. BUN/Creatinine Ratio 26.0 LAB CHEMISTRY METHOD 04/28/2025 6:21 PM [facility] Calcium 9.2 8.5 - 10.5 mg/dL LAB CHEMISTRY METHOD 04/28/2025 6:21 PM [facility] AST (SGOT) 24 10 - 42 unit/L LAB CHEMISTRY METHOD 04/28/2025 6:21 PM [facility] ALT (SGPT) 46 10 - 60 unit/L LAB CHEMISTRY METHOD 04/28/2025 6:21 PM [facility] Alkaline Phosphatase 99 42 - 121 unit/L LAB CHEMISTRY METHOD 04/28/2025 6:21 PM [facility] Total Protein 6.9 6.0 - 8.0 g/dL LAB CHEMISTRY METHOD 04/28/2025 6:21 PM [facility] Albumin 3.9 3.2 - 5.0 g/dL LAB CHEMISTRY METHOD 04/28/2025 6:21 PM [facility] Total Bilirubin 0.3 0.0 - 1.4 mg/dL LAB CHEMISTRY METHOD 04/28/2025 6:21 PM [facility] Blood Venous blood specimen / Unknown Venipuncture / Unknown 04/28/2025 2:03 PM EDT 04/28/2025 2:03 PM EDT us Kirstin Mesa PRE PRESS MANAGER LAB BLOOD ORDERABLES Final Resul t [facility] ([facility] [address] [place] [address], from Last 3 Months Insurance [employer] * Guarantor: PACE Account Type Relation to Patient Date of Phone Billing Address RIDDHI HANNON [address] HEALTH Member Subscriber Plan / Payer (Ef fective 2025-Present) Name:Alberta Last Relation to Subscriber:Self Name:Alberta Last Payer ID:[id number] Group ID:Not on file Type:Not on file Address: [place] [id number] Advance Directives Documents on File Type Date Recorded 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
--- OUTSIDE RECORDS SUMMARY | 2025-06-07 07:21 | XMS_ITS | Encounter Summary ---
Author Organization [facility] Address [address] [place] [address] Care Team Providers Care Staffing Executive Name Role Phone Sheng Farr NP Primary Care Provider [phone] Reason for Visit * Reason Onset Date Comments Medication 04/28/2025 Carekinesis Encounter Details Date Type Department Care Team (Late st Contact Info) Description 04/28/2025 [facility] [address] [place] [phone] Mari Burton, FARZAD Social History Tobacco Use Types Packs/Day Years [...] Info) Description 06/10/2025 10:00 AM EDT Telemedicine [address] [phone] 06/14/2025 10:00 AM EDT Clinical Support [address] [phone] 06/16/2025 10:00 AM EDT Clinical Support [address] [phone] 06/17/2025 9:00 AM EDT Clinical Support [facility] [phone] 06/23/2025 8:50 AM EDT Consult Gastroenterology - [place] 175 [address] 175 [facility] [address] [place] [phone] Vonnie Joseph PA [address] [place] [place] [address] 07/04/2025 8:15 AM EST Office Visit Orthopedic Surgery - [place] [address] [phone] Alexander Asencio, DPM [address] [phone] 07/05/2025 9:45 AM EST PACE External Visit [facility] [address] [phone] 07/19/2025 1:00 PM EST [facility] Support [email or web address] [address] [phone] 08/02/2025 2:45 PM EST Clinical Support [facility] [address] [phone] 08/17/2025 10:15 AM EST Clinical Support [facility] [address] [phone] 09/08/2025 1:00 PM EST [email or web address] [address] [phone] documented as of this encounter Visit Diagnoses Not on filedocumented in this encounter Care Teams Staffing Executive Relationship Specialty Start Date End Date Sheng Farr NP [address] [place] [phone] (Fax) PCP - General PACE 11/02/24 documented as of this encounter
--- OUTSIDE RECORDS SUMMARY | 2025-06-07 07:21 | XMS_ITS | Encounter Summary ---
Author Organization [employer] Address [address] [place] [address] 7 [place] [address] Care Team Providers Care Automation Operator Name Role Phone Myriam Hicks Primary Care Provider Genesis Alesia Le MD Primary Care Pro vider Jesus Bae Unavailable Annette Marcus RN Unavailable [phone] Patria Bae RN Unavailable [phone] Encounter Details Date Type Department Care Team (Late st Contact Info) Description 08/16/2022 Orders Only [facility] [address] [place] [address] Virginia Kaur LPN Social History Tobacco Use [...] on filedocumented in this encounter Care Teams Automation Operator Relationship Specialty Start Date End Date Myriam Hicks FNP PCP - General Family Medicine 04/28/22 06/09/23 Alesia Sanchez MD [address] [place] [address] PCP - General Internal Medicine 06/10/23 Jesus Bae Community Health Worker 03/11/24 Annette Marcus RN [address] [place] [address] Big Data Lead 03/11/24 04/11/24 Patria Bae RN [address] [place] [address] Big Data Lead 04/12/24 06/09/24 Shu Smith Big Data LeadBaker Head 08/17/24 documented as of this encounter
--- OUTSIDE RECORDS SUMMARY | 2025-06-07 07:21 | XMS_ITS | Encounter Summary ---
Author Organization [employer] Address [address] [facility] 7t [place] [address] Care Team Providers Care Office Technician Name Role Phone Alesia Sanchez MD Primary Care Pro vider Jesus Bae Unavailable Annette Marcus RN Unavailable [phone] Patria Bae RN Unavailable [phone] Reason for Visit * Reason Comments Med Refill Encounter Details Date Type Department Care Team (Late st Contact Info) Description 07/07/2023 Refill [facility] [address] [place], [place] [phone] Myriam Hicks FNP Social History Tobacco Use [...] documented as of this encounter Care Teams Office Technician Relationship Specialty Start Date End Date Alesia Sanchez MD [address] [place] [address] PCP - General Internal Medicine 06/10/23 Jesus Bae Community Health Worker 03/11/24 Annette Marcus RN [address] [place] [address] Lacing String Cutter 03/11/24 04/11/24 Patria Bae RN [address] [place] [address] Lacing String Cutter 04/12/24 06/09/24 Shu Smith Lacing String CutterTipple Greaser 08/17/24 documented as of this encounter
--- OUTSIDE RECORDS SUMMARY | 2025-06-07 07:21 | XMS_ITS | Encounter Summary ---
Author Organization [employer] Address [address] [place] [address] 7t [place] [address] Care Team Providers Care Religious Studies Professor Name Role Phone Myriam Hicks Primary Care Provider Genesis Alesia Le MD Primary Care Pro vider Jesus Bae Unavailable Annette Marcus RN Unavailable [phone] Patria Bae RN Unavailable [phone] Reason for Visit * Reason Comments Med Refill Encounter Details Date Type Department Care Team (Late st Contact Info) Description 09/23/2022 Refill [facility] [address] [place], [place] [phone] Myriam Hicks FNP Moderate persistent asthma without complication (Primary Dx) [...] Primary documented in this encounter Care Teams Religious Studies Professor Relationship Specialty Start Date End Date Myriam Hicks FNP PCP - General Family Medicine 04/28/22 06/09/23 Alesia Sanchez MD [address] [place] [address] PCP - General Internal Medicine 06/10/23 Jesus Bae Community Health Worker 03/11/24 Annette Marcus RN [address] [place] [address] Foil Operator 03/11/24 04/11/24 Patria Bae RN [address] [place] [address] Foil Operator 04/12/24 06/09/24 Shu Smith Foil OperatorApplications Architect 08/17/24 documented as of this encounter
--- OUTSIDE RECORDS SUMMARY | 2025-06-07 07:21 | XMS_ITS | Encounter Summary ---
Author Organization [facility] [address] Address [address] [place] [address] Care Team Providers Care Mechanical Service Representative Name Role Phone Sheng Farr NP Primary Care Provider [phone] Encounter Details Date Type Department Care Team (Late st Contact Info) Description 01/11/2025 Health Home [facility] [address] [place] [phone] Teresa Figueroa RN Social History Tobacco Use Types Packs/Day [...] Info) Description 06/10/2025 10:00 AM EDT [facility] [address] [phone] 06/14/2025 10:00 AM EDT Clinical Support [employer] [address] [phone] 06/16/2025 10:00 AM EDT Clinical Support [address] [place] [address] [phone] 06/17/2025 9:00 AM EDT Clinical Support [employer] [phone] 06/23/2025 8:50 AM EDT Consult Gastroenterology - [place] 175 [address] [place] [phone] Vonnie Joseph PA [address] [place] [address] 07/04/2025 8:15 AM EST Office Visit Orthopedic Surgery - [place] [address] [facility] [address] [place] [phone] Alexander Asencio, DPM [address] [facility] [address] [place] [phone] 07/05/2025 9:45 AM EST PACE External Visit [facility] [employer] [address] [address] 07/19/2025 1:00 PM EST Clinical Support [facility] [address] [phone] 08/02/2025 2:45 PM EST Clinical Support [facility] [address] [phone] 08/17/2025 10:15 AM EST Clinical Support [facility] [address] [phone] 09/08/2025 1:00 PM EST Clinical Support [facility] [address] [phone] documented as of this encounter Visit Diagnoses Not on filedocumented in this encounter Care Teams Mechanical Service Representative Relationship Specialty Start Date End Date Sheng Farr NP [address] [place] [address] PCP - General PACE 11/02/24 documented as of this encounter
--- OUTSIDE RECORDS SUMMARY | 2025-06-07 07:21 | XMS_ITS ---
Author Organization [facility] Address [address] [place] [address] Phone Care Team Providers Care Electro Mechanical Assembler Name Role Phone Sheng Farr NP Primary Care Provider [phone] Program of All-Inclusive Care for the Elderly Status:Enrolled (Active) Start date:10/30/2024 Enrollment date:10/30/2024 Related social drivers of health:Housing Instability, TH Health Literacy, Financial Risk, Transportation, Social Isolation, Food Risk Overview This episode will track PACE documentation. Case Team Name Relationship Phone Sheng Farr CHALKER SOLES Nurse Practitioner [phone] Hina Russell Recreational Therapist Josee Samayoa RN Senior Sales Assistant Stefany Rapp RN Senior Sales Assistant Ebony Astudillo MESS ATTENDANT Registered Nurse Alexander Mckenzie OT Occupational Therapist Mir Cobian RN Registered Nurse Vaishali Heredia RD Dietitian Osman Baxter PT Physical Therapist Chavo [facility] Director Rah Elena EMERGENCY DEPARTMENT COORDINATOR High Reach Operator Jennifer Hi guest services associateSenior Sales Assistant Gilda Plunkett RN Registered Nurse Chelsea Montesinos High Reach Operator [facility] High Reach Operator Ismael Chao Spiritual Care Fozia Berg PT Physical Therapist Mahnaz Abdi OT Occupational Therapist Brina MONGEW High Reach Operator Wing Dubios PT Physical Therapist Mia Moscoso MD Primary Care Provider Continued Care and Services Coordination
--- NOTE | 2025-06-07 07:25 | ED.ABDPAIN ---
HPI - Abdominal Pain General Chief Complaint: Abdominal Pain Stated Complaint: Ovarian Pain Time Seen by Provider: 06/07/25 07:00 Source: patient, RN notes reviewed and old records reviewed Mode of arrival: ambulatory History of Present Illness ED Provider: Mar Busch PA-C HPI narrative: 60-year-old female with a past medical history of migraines, depression, anxiety, asthma, arthritis, renal stones, s/p hysterectomy and cholecystectomy, presenting to the ED complaining of intermittent LLQ abdominal pain x5 days now with radiation to left flank. Reports pain has become more constant. Reports difficulty urinating. Denies fever, chills, nausea, vomiting, dysuria, hematuria, vaginal bleeding or discharge Related Data Home Medications ?Medication ?Instructions ?Recorded ?Confirmed diclofenac sodium 1 % topical gel 2 g topical QID PRN Pain 11/30/20 01/07/24 duloxetine 60 mg capsule,delayed 60 mg PO DAILY 11/30/20 01/07/24 release fluticasone propionate 50 2 spray intranasal DAILY 11/30/20 01/07/24 mcg/actuation nasal spray,suspension lidocaine 5 % topical patch 1 patch topical DAILY 11/30/20 01/07/24 (Lidoderm) montelukast 10 mg tablet 10 mg PO BEDTIME 11/30/20 01/07/24 omeprazole 20 mg capsule,delayed 20 mg PO BID 11/30/20 01/07/24 release atorvastatin 40 mg tablet 1 tab PO BEDTIME 11/04/21 01/07/24 docusate sodium 100 mg capsule 100 mg PO BID 03/13/22 01/07/24 (Colace) cholecalciferol (vitamin D3) 50 1 cap PO QAM 09/10/22 01/07/24 mcg (2,000 unit) capsule (Vitamin D3) ipratropium bromide 17 2 puff inhalation QID PRN wheezing 09/10/22 01/07/24 mcg/actuation HFA aerosol inhaler (Atrovent HFA) furosemide 20 mg tablet 40 mg PO QAM 04/15/23 01/07/24 diltiazem HCl 240 mg 240 mg PO QAM 06/17/23 01/07/24 capsule,extended release 24 hr Previous Rx's ?Medication ?Instructions ?Recorded albuterol sulfate 2.5 mg/3 mL 2.5 mg (3 mL) inhalation Q4-6H PRN 11/14/21 (0.083 %) solution for nebulization shortness of breath or wheezing #90 mL cyclobenzaprine 10 mg tablet 10 mg PO BEDTIME PRN muscle spasm 10/03/23 7 days #7 tabs naproxen 500 mg tablet 500 mg PO BID PRN pain 7 days #14 10/03/23 tabs tamsulosin 0.4 mg capsule 0.4 mg PO BEDTIME 30 days #90 caps 10/10/23 pyridoxine (vitamin B6) 100 mg 100 mg PO DAILY 90 days #90 tabs 12/09/23 tablet albuterol sulfate 2.5 mg/0.5 mL 5 mg inhalation Q6H PRN 03/02/24 solution for nebulization bronchospasm #30 ea umeclidinium 62.5 mcg/actuation 1 inh PO DAILY #30 ea 05/21/24 blister powder for inhalation (Incruse Ellipta) gabapentin 300 mg capsule 300 mg PO BEDTIME #30 caps 08/18/24 naproxen 500 mg tablet 500 mg PO BID PRN pain 10 days #20 06/07/25 tabs tamsulosin 0.4 mg capsule (Flomax) 0.4 mg PO DAILY #14 caps 06/07/25 Allergies Allergy/AdvReac Type Severity Reaction Status Date / Time pollen extracts (POLLEN) Allergy Unknown RUNNY Verified 06/07/25 06:36 NOSE, ITCHY EYES seasonl allergies Allergy Unknown asthma Uncoded 06/07/25 06:36 attacks Review of Systems Review of Systems Yes all other systems are reviewed and are negative Constitutional: Reports as per [facility] Past Medical History Attestation statement: The following information was validated with the patient. Source: old records reviewed Medical History Migraine-cluster headache syndrome Acute carpal tunnel syndrome of right wrist COVID-19 Depression Anxiety Migraine headache Arthritis Asthma Surgical History Hx of cholecystectomy Hx of elbow surgery Hx of hysterectomy Social History Social History Household Members: Family Household Members Other:: - [place] Housing: House Do you presently have visiting nurse or other home services: No Unable to assess alcohol history related to: Unknown Alcohol intake: never Patient Tobacco Use Status: Never used Tobacco Second Hand Smoke Exposure: No Advance Directives: Yes Advance Directives on File: Yes Advance Directives Date on File: 09/10/22 service: No Current occupational status: unemployed and disabled Current occupation: rt handed Physical Exam ED Vital Signs: Vital Signs - 24 hr 06/07/25 06:32 06/07/25 11:10 Temperature 97.6 F 97.7 F Pulse Rate 67 60 Respiratory Rate 18 18 Blood Pressure 120/65 107/58 L Pulse Oximetry 94 92 Oxygen Delivery Method Room Air Room Air BMI result Body Mass Index 27.9 Const General: cooperative, healthy appearing and no acute distress Orientation/consciousness: patient oriented x3 Limitations: no limitations HENMT Head: Yes normal to inspection and Yes atraumatic Ears: hearing grossly normal bilaterally General nose exam: Normal external nose present Face and sinus: Yes normal facial exam Eyes General: appearance normal, both eyes and all related structures EOM: EOMs intact bilaterally Neck Neck: Yes normal visual inspection and Yes no meningeal signs Resp Effort & Inspection: normal respiratory effort and no respiratory distress Cardio Rate: regular rate GI Inspection: Yes normal to inspection Palpation (GI): Soft to palpation, Tenderness to palpation present (GI) in the LLQ; with no rebound tenderness, no guarding and not rigid General: Yes CVA tenderness on the left Back/Spine/Pelvis Back: CVA tenderness Skin Rashes: no rashes Wounds: no wounds Neuro General: patient oriented x3, tone normal and no meningeal signs Cranial nerves: Yes CN's II-XII intact bilaterally Gait exam (Neuro): Normal gait present Extrem General: Yes normal to inspection Course Course Course Narrative: -no leukocytosis. Labs otherwise reassuring. -UA with RBCs/trace blood. Not infected CT abdomen pelvis wo IV con IMPRESSION: 1 mm left UVJ calculus without hydronephrosis. > results discussed with patient. Given IVF, Zofran, Toradol, morphine, Flomax in the ED with symptomatic relief. Is tolerating p.o. discussed with patient likelihood of stone passing on its own. Discussed needed close follow up with Urology. Results discussed with patient including worrisome signs and symptoms and strict return precautions, and when to return to the emergency department. They verbalized understanding and feel safe for discharge at this time. Medical Decision Making Medical Decision Making MDM Narrative: 60-year-old female with a past medical history of migraines, depression, anxiety, asthma, arthritis, renal stones, s/p hysterectomy and cholecystectomy, presenting to the ED complaining of intermittent LLQ abdominal pain x5 days now with radiation to left flank. On exam vital signs stable, NAD, nontoxic appearing, abdomen is soft with LLQ tenderness and left CVAT. No rebound or guarding. Concern for renal colic/renal stone vs pyelo. Rule out UTI. Lower suspicion for ovarian torsion at this time. Lower suspicion for appendicitis/diverticulitis or SBO Plan: Labs, UA, CT AP, IVF, pain control, re-evaluate Please refer to course for remaining clinical decision making, interpretation of labs/imaging results, and discussions with consultants and/or family members. Differential Diagnosis Differential Diagnoses: The differential diagnosis associated with the presentation includes As above Admission/Observation Consideration of admission/observation: Escalation of care including admission/observation considered Lab Data [facility] Lab Attestation statement: I reviewed the patient's lab results. 06/07/25 07:36 06/07/25 07:36 Labs: Lab Results 06/07/25 06/07/25 Range/Units 07:36 07:41 WBC 6.3 (4.8-10.8) X10*3/uL RBC 4.36 (4.20-5.50) X10*6/uL Hgb 12.6 (12.0-16.0) g/dl Hct 37.0 (37.0-47.0) % MCV 84.9 (80.0-98.0) fL MCH 28.9 (27.0-33.0) pg MCHC 34.1 (31.0-35.0) g/dl RDW 13.1 (11.0-16.0) % Plt Count 249 (160-400) X10*3/uL MPV 9.6 (9.4-12.3) fL Immature Gran % (Auto) 0.2 (0.0-0.4) % Neut % (Auto) 48.0 (45-73) % Lymph % (Auto) 42.2 H (20-40) % Wallace % (Auto) 7.3 (2-11) % Eos % (Auto) 1.7 (0-4) % Baso % (Auto) 0.6 (0-2) % Lymph # (Auto) 2.7 (1.2-4.9) X10*3/uL Wallace # (Auto) 0.5 (0.1-1.2) X10*3/uL Eos # (Auto) 0.1 (0.0-0.4) X10*3/uL Baso # (Auto) 0.0 (0.0-0.2) X10*3/uL Abs Immat Gran (auto) 0.01 (0.00-0.03) X10*3/uL Absolute Neuts (auto) 3.0 (2.0-8.3) x10*3/uL Absolute Nucleated RBC 0.000 (0.0-0.012) X10*3/uL Nucleated RBC % (auto) 0.0 (0.0-0.2) /100WBC Sodium 142 (135-145) mmol/L Potassium 4.0 (3.3-5.1) mmol/L Chloride 110 H (96-108) mmol/L Carbon Dioxide 25 (22-29) mmol/L Anion Gap 11 L (12-20) BUN 14 (9-16) mg/dL Creatinine 0.51 (0.5-1.4) mg/dL Estim Creat Clear Calc 109.7 Estimated GFR > 60 Random Glucose 99 (60-115) mg/dL Calcium 8.8 (8.4-10.2) mg/dL Magnesium 2.0 (1.6-2.6) mg/dL Total Bilirubin 0.3 (0.0-1.0) mg/dL Direct Bilirubin 0.1 (0.0-0.5) mg/dL AST 27 (5-31) U/L ALT 20 (0-31) U/L Alkaline Phosphatase 74 (39-117) U/L Total Protein 6.5 (6.5-8.0) g/dL Albumin 3.7 (3.5-5.0) g/dL Lipase 38 (8-78) U/L Urine Color Yellow Urine Appearance Clear Urine pH 6.0 (5.0-9.0) Ur Specific [place] 1.020 (1.005-1.025) Urine Protein Negative (Neg-Trace) mg/dL Urine Glucose (UA) Negative (Negative) mg/dL Urine Ketones Negative (Negative) mg/dL Urine Blood Trace H (Negative) Urine Nitrite Negative (Negative) Ur Leukocyte Esterase Negative (Negative) Urine RBC 3-5 H (0-2) /HPF Urine WBC 0-5 (0-5) /HPF Ur Squamous Epith Cells 0-2 (0-2) /HPF Urine Bacteria None Seen (None Seen) Hyaline Casts 0-2 (0-2) /LPF Radiology Impression Discussion of test interpretation with radiology: I have reviewed the radiologist's reading. External Record Review External record reviewed: Inpatient record, Office record, Outpatient record, Prior outpatient labs, Prior outpatient radiology, Primary care record and Outside ED record Tests considered The following testing was considered but not selected: As above Prescription Management I considered prescription management with: Pain Medication Chronic Conditions Patient?s care impacted by: Other (asthma) Social Determinants Patient?s care significantly limited by Social Determinants of Health including: Other Social Determinant of Health Medications Administered Discontinued Medications Generic Name Dose Route Start Last Admin Trade Name Freq PRN Reason Stop Dose Admin Sodium Chloride 1,000 mls @ 999 mls/hr 06/07/25 07:30 06/07/25 09:19 Ns IV 06/07/25 08:30 Infused .Q1H1M JOAQUIM Infusion Sodium Chloride 1,000 mls @ 999 mls/hr 06/07/25 08:45 06/07/25 10:57 Ns IV 06/07/25 09:45 Infused .Q1H1M JOAQUIM Infusion Ketorolac Tromethamine 15 mg 06/07/25 07:16 06/07/25 07:38 Ketorolac Tromethamine 15 Mg/Ml Vial IVPUSH 06/07/25 07:17 15 mg ONCE ONE Administration Ketorolac Tromethamine 15 mg 06/07/25 08:43 06/07/25 09:13 Ketorolac Tromethamine 15 Mg/Ml Vial IVPUSH 06/07/25 08:44 15 mg ONCE ONE Administration Morphine Sulfate 2 mg 06/07/25 08:43 06/07/25 09:13 Morphine Sulfate 2 Mg/Ml Cartridge IVPUSH 06/07/25 08:44 2 mg ONCE ONE Administration Protocol Ondansetron HCl 4 mg 06/07/25 09:55 06/07/25 10:07 Ondansetron Hcl 4 Mg/2 Ml Vial IVPUSH 06/07/25 09:56 4 mg ONCE ONE Administration Tamsulosin HCl 0.4 mg 06/07/25 08:54 06/07/25 09:13 Tamsulosin Hcl 0.4 Mg Capsule PO 06/07/25 08:55 0.4 mg ONCE ONE Administration Discharge Plan Discharge Clinical Impression: Calculus of ureterovesical junction (UVJ) Patient Disposition: Home, Self-Care Instructions: Ureteral Stones (ED) Additional Instructions: You have a kidney stone Flomax will help dilate the ureter to help pass the stone Naproxen as an anti-inflammatory/pain medication, take with food Please increase fluid intake You need to follow up with urology. Call to make an appointment If her symptoms persist or worsen, pain becomes constant/unbearable, you persistent nausea, vomiting, fever or difficulty or inability to urinate return to the ED Prescriptions: New tamsulosin [Flomax] 0.4 mg capsule 0.4 mg PO DAILY Qty: 14 0RF naproxen 500 mg tablet 500 mg PO BID PRN (Reason: pain) 10 Days Qty: 20 0RF No Action albuterol sulfate 2.5 mg /3 mL (0.083 %) solution for nebulization 2.5 mg inhalation Q4-6H PRN (Reason: shortness of breath or wheezing) Qty: 90 0RF tamsulosin 0.4 mg capsule 0.4 mg PO BEDTIME 30 Days Qty: 90 2RF pyridoxine (vitamin B6) 100 mg tablet 100 mg PO DAILY 90 Days Qty: 90 1RF Incruse Ellipta 62.5 mcg/actuation blister with device 1 inh PO DAILY Qty: 30 6RF gabapentin 300 mg capsule 300 mg PO BEDTIME Qty: 30 0RF lidocaine [Lidoderm] 5 % adhesive patch,medicated 1 patch topical DAILY Rx Instructions: 12 HOURS ON 12 HOURS OFF omeprazole 20 mg capsule,delayed release(DR/EC) 20 mg PO BID montelukast 10 mg tablet 10 mg PO BEDTIME fluticasone propionate 50 mcg/actuation spray,suspension 2 spray intranasal DAILY duloxetine 60 mg capsule,delayed release(DR/EC) 60 mg PO DAILY diclofenac sodium 1 % gel 2 g topical QID PRN (Reason: Pain) Atrovent HFA 17 mcg/actuation HFA aerosol inhaler 2 puff INHALATION QID PRN (Reason: wheezing) cholecalciferol (vitamin D3) [Vitamin D3] 50 mcg (2,000 unit) capsule 1 cap PO QAM atorvastatin 40 mg tablet 1 tab PO BEDTIME naproxen 500 mg tablet 500 mg PO BID PRN (Reason: pain) 7 Days Qty: 14 0RF cyclobenzaprine 10 mg tablet 10 mg PO BEDTIME PRN (Reason: muscle spasm) 7 Days Qty: 7 0RF Rx Instructions: side effect is drowsiness. albuterol sulfate 2.5 mg/0.5 mL solution for nebulization 5 mg inhalation Q6H PRN (Reason: bronchospasm) Qty: 30 0RF docusate sodium [Colace] 100 mg capsule 100 mg PO BID furosemide 20 mg tablet 40 mg PO QAM diltiazem HCl 240 mg capsule,extended release 24hr 240 mg PO QAM Referrals: [facility] [Provider Group, Urology] - 1 week Interventions: ED Discharge Assessment Last Done: 06/07/25 11:10 Discharge Date/Time: 06/07/25 11:38 Print Language: Swedish
[2025-06-07 07:48] LABS: MANUAL DIFF FLAG NO
[2025-06-07 07:49] LABS: Appearance Urine Clear; Glucose Urine UA Negative (Negative); PH 6.0 (5.0-9.0); Specific Gravity - Urine 1.020 (1.005-1.025); UMIC TRIGGER UACC YES
[2025-06-07 07:50] LABS: Hematocrit 37.0 % (37.0-47.0); Hemoglobin 12.6 g/dl (12.0-16.0); Imm Gran Abs Auto 0.01 X10*3/uL (0.00-0.03); Imm Gran Pct Auto 0.2 % (0.0-0.4); Lymphocytes Absolute Auto 2.7 X10*3/uL (1.2-4.9); Mean Corpuscular HGB Conc 34.1 g/dl (31.0-35.0); Mean Corpuscular Hemoglobin 28.9 pg (27.0-33.0); Mean Corpuscular Volume 84.9 fL (80.0-98.0); NRBC Abs Auto 0.000 X10*3/uL (0.0-0.012); NRBC Pct Auto 0.0 /100WBC (0.0-0.2); Platelet Count 249 X10*3/uL (160-400); Red Blood Count 4.36 X10*6/uL (4.20-5.50); White Blood Count 6.3 X10*3/uL (4.8-10.8)
[2025-06-07 08:02] LABS: Alanine Aminotransferase 20 U/L (0-31); Albumin Level 3.7 g/dL (3.5-5.0); Alkaline Phosphatase 74 U/L (39-117); Anion Gap 11 (12-20); Aspartate Amino Transferase 27 U/L (5-31); Blood Urea Nitrogen 14 mg/dL (9-16); Calcium 8.8 mg/dL (8.4-10.2); Carbon Dioxide 25 mmol/L (22-29); Chloride 110 mmol/L (96-108); Creatinine Clr Calc Pharmacy 109.7; Estimated Glomerular Filt Rate > 60; Lipase 38 U/L (8-78); Magnesium 2.0 mg/dL (1.6-2.6); Potassium 4.0 mmol/L (3.3-5.1); Sodium 142 mmol/L (135-145); Total Protein 6.5 g/dL (6.5-8.0)
[2025-06-07 11:10] VITALS: BP 107/58; PULSE 60; RESP 18; TEMP 36.5; O2SAT 92
== END 2025-06-07 11:38 | disposition home or self-care (01) ==
PROVIDERS: Physician Assistant; Emergency Provider Emergency Medicine; PCP Nurse Practitioner
DX: N20.1 Calculus of ureter (principal); R10.32 Left lower quadrant pain; R33.9 Retention of urine, unspecified; R11.0 Nausea; Z79.899 Other long term (current) drug therapy
CPT/HCPCS: 36415; 74176; 80048; 80076; 81001; 83690; 83735; 85025; 96361; 96374; 96375; 96376; 99284; 99285; J1885; J2270; J2405

== ENCOUNTER → 2025-06-07 07:16 | Outpatient (BNV) | payer OTHER, SELFPAY | PROVIDERS: Emergency Provider Emergency Medicine; PCP Nurse Practitioner; Visit Provider Radiology Diagnostic Radiology | DX: N20.1 Calculus of ureter (principal) | CPT/HCPCS: 74176 ==